=== PATIENT | female | born 1965 | race Caucasian/White ===

== ENCOUNTER 2023-07-22 09:07 | Outpatient (OUT) | payer MEDICARE, SELFPAY ==
[2023-07-22 09:39] LABS: Bilirubin Urine SMALL (NEGATIVE); Blood Urine TRACE-I (NEGATIVE); Clarity Urine CLEAR (CLEAR); Color Urine LT. YELLOW (YELLOW); Glucose Urine UA NEGATIVE (NEGATIVE); Ketones Urine 15 mg/dL (NEGATIVE); Leukocyte Esterase Urine MODERATE (NEGATIVE); Nitrite Urine NEGATIVE (NEGATIVE); Protein Urine NEGATIVE (NEG/TRACE); Specific Gravity Urine <=1.005 (1.005-1.025); Urobilinogen Urine 0.2 EU/dL (0.2-1.0); pH Urine 6.5 (5.0-9.0)
[2023-07-22 09:48] LABS: Basophils Percent Auto 0.8 % (0.2-2.0); Hematocrit 38.7 % (36.0-48.0); Hemoglobin 13.4 g/dL (12.0-16.0); Immature Granulocytes Abs Auto 0.01 10^3/uL (0.00-0.03); Immature Granulocytes Pct Auto 0.2 % (0.0-0.5); Mean Corpuscular HGB Conc 34.6 g/dL (29.9-35.2); Mean Corpuscular Hemoglobin 32.4 pg (26.7-34.0); Mean Corpuscular Volume 93.7 fL (81.0-99.0); Mean Platelet Volume 9.7 fL (9.5-13.5); Monocytes Absolute Auto 0.6 10^3/uL (0.3-0.8); Monocytes Percent Auto 10.8 % (1.7-12.0); Neutrophils Absolute Auto 2.5 10^3/uL (1.4-6.5); Neutrophils Percent Auto 49.2 % (43.0-75.0); Platelet Count 289 10^3/uL (150-450); Red Blood Count 4.13 10^6/uL (4.20-5.40); Red Cell Distribution Width 12.8 % (11.0-15.0); White Blood Count 5.1 10^3/uL (4.0-11.0)
[2023-07-22 09:51] LABS: Bacteria Urine TRACE #/HPF (NONE SEEN); Mucus Urine NONE SEEN (NONE SEEN); RBC Urine 0-2 #/HPF (0-2); Squamous Epithelial Cell Urine FEW #/LPF (NONE/RARE)
[2023-07-22 09:52] LABS: Calcium Oxalate Crystals Urine MANY; Crystals Seen? Seen #/HPF (None Seen)
[2023-07-22 10:41] LABS: Estimated Average Glucose 108 mg/dL; Glycohemoglobin A1C 5.4 % (4.5-6.2); Percent Iron Saturation 58.7 %
[2023-07-22 10:55] LABS: Alanine Aminotransferase 25 U/L (14-59); Albumin Level 3.6 g/dL (3.4-5.0); Alkaline Phosphatase 159 U/L (46-116); Anion Gap 12.8; Aspartate Amino Transferase 20 U/L (15-37); BUN Creatinine Ratio 7.9; Bilirubin Total 0.4 mg/dL (0.2-1.0); Calcium 9.1 mg/dL (8.5-10.1); Carbon Dioxide 26.5 mmol/L (21.0-32.0); Chloride 95 mmol/L (98-107); Chol HDL Ratio 2.5; Cholesterol 192 mg/dL (<=200); Estimated GFR (African America >60 (>=60); Estimated GFR (Non-African Ame >60 (>=60); Free T3 1.86 pg/mL (2.18-3.98); Globulin 3.7 g/dL; Glucose 104 mg/dL (74-106); HDL Cholesterol 78 mg/dL (40-60); Potassium 3.3 mmol/L (3.5-5.1); Sodium 131 mmol/L (136-145); Thyroid Stimulating Hormone 3.508 uIU/mL (0.358-3.740); Total Protein 7.3 g/dL (6.4-8.2); Triglycerides 79 mg/dL (<=150); VLDL CHOLESTEROL 15.8 mg/dL
[2023-07-22 11:02] LABS: Free T4 0.75 ng/dL (0.76-1.46)
== END 2023-07-22 09:08 | disposition home or self-care (01) ==
LOC: LAB 09:11
PROVIDERS: PCP Family Medicine; Visit Provider Family Medicine
DX: R31.9 Hematuria, unspecified (principal); E03.9 Hypothyroidism, unspecified; E78.5 Hyperlipidemia, unspecified; E55.9 Vitamin D deficiency, unspecified; Z79.899 Other long term (current) drug therapy; R73.9 Hyperglycemia, unspecified; E83.119 Hemochromatosis, unspecified; R74.8 Abnormal levels of other serum enzymes
CPT/HCPCS: 36415; 80053; 80061; 81001; 82306; 82728; 83036; 83540; 83550; 84075; 84080; 84439; 84443; 84481; 85025; 87086

== ENCOUNTER 2023-08-04 08:08 | Outpatient (OUT) | payer MEDICARE, SELFPAY ==
--- NOTE | 2023-08-04 08:24 | MM_ITS ---
Patient: MIKEY MONTEZ Exam Date: 08/04/2023 : 1965 Gender:F Ordering : DR JUSTO RUIZ Admission #: [id number] Family : Order #: [id number] CLICK HERE TO VIEW EXAM RADIOLOGY REPORT PROCEDURE: MM TOMOSYNTHESIS SCREENING BI COMPARISON: MG MAMM SCREEN 3D ELENA CAD, 06/02/2021. MG MAMM SCREEN ELENA W CAD, 05/28/2020. INDICATIONS: Screening Calculator Name NCI Breast Cancer Risk Assessment Tool 5 Year Breast Cancer Risk 1.40% Lifetime Breast Cancer Risk 8.90% Personal Breast Cancer No Personal Ovarian Cancer No Treatments None Family Cancers Grandfather-maternal with lung cancer at age 35. LOCATION: [facility] BREAST COMPOSITION: Almost entirely fatty. FINDINGS: DIAGNOSTIC CATEGORY 1--NEGATIVE. NO CHANGE FROM COMPARISON ASSESSMENT. RIGHT BREAST: No significant suspicious finding. LEFT BREAST: No significant suspicious finding. RECOMMENDATIONS: ROUTINE MAMMOGRAM AND CLINICAL EVALUATION IN 12 MONTHS. PLEASE NOTE: A NORMAL MAMMOGRAM DOES NOT EXCLUDE THE POSSIBILITY OF BREAST CANCER. A CLINICALLY SUSPICIOUS PALPABLE LUMP SHOULD BE BIOPSIED. Dictated by: Justo Sosa MD on 08/04/2023 at 13:48 Approved by: Justo Sosa MD on 08/04/2023 at 13:49
[2023-08-04 13:54] LABS: Anion Gap 14.7; BUN Creatinine Ratio 14.3; Carbon Dioxide 26.6 mmol/L (21.0-32.0); Chloride 93 mmol/L (98-107); Estimated GFR (African America >60 (>=60); Estimated GFR (Non-African Ame >60 (>=60); Glucose 100 mg/dL (74-106); Potassium 4.3 mmol/L (3.5-5.1); Sodium 130 mmol/L (136-145)
== END 2023-08-04 08:09 | disposition home or self-care (01) ==
LOC: MAMMO 08:09
PROVIDERS: PCP Family Medicine; Visit Provider Family Medicine
DX: E87.6 Hypokalemia (principal); Z12.31 Encounter for screening mammogram for malignant neoplasm of breast; Z80.1 Family history of malignant neoplasm of trachea, bronchus and lung
CPT/HCPCS: 36415; 77063; 77067; 80048

== ENCOUNTER 2023-08-12 09:41 | Outpatient (OUT) | payer MEDICARE, SELFPAY ==
[2023-08-12 10:09] LABS: Basophils Percent Auto 0.6 % (0.2-2.0); Hematocrit 38.4 % (36.0-48.0); Hemoglobin 12.8 g/dL (12.0-16.0); Lymphocytes Absolute Auto 1.8 10^3/uL (1.2-3.8); Mean Corpuscular HGB Conc 33.3 g/dL (29.9-35.2); Mean Corpuscular Hemoglobin 32.1 pg (26.7-34.0); Mean Corpuscular Volume 96.2 fL (81.0-99.0); Monocytes Absolute Auto 0.4 10^3/uL (0.3-0.8); Monocytes Percent Auto 7.4 % (1.7-12.0); Neutrophils Absolute Auto 3.1 10^3/uL (1.4-6.5); Platelet Count 320 10^3/uL (150-450); Red Blood Count 3.99 10^6/uL (4.20-5.40); Red Cell Distribution Width 13.2 % (11.0-15.0); White Blood Count 5.4 10^3/uL (4.0-11.0)
[2023-08-12 11:05] LABS: Percent Iron Saturation 42.5 %
[2023-08-12 11:44] LABS: Alanine Aminotransferase 21 U/L (14-59); Albumin Globulin Ratio 0.9; Albumin Level 3.6 g/dL (3.4-5.0); Alkaline Phosphatase 158 U/L (46-116); Anion Gap 13.1; Aspartate Amino Transferase 16 U/L (15-37); BUN Creatinine Ratio 18.3; Bilirubin Total 0.4 mg/dL (0.2-1.0); Calcium 9.2 mg/dL (8.5-10.1); Carbon Dioxide 26.7 mmol/L (21.0-32.0); Chloride 98 mmol/L (98-107); Estimated GFR (African America >60 (>=60); Estimated GFR (Non-African Ame >60 (>=60); Globulin 3.8 g/dL; Glucose 103 mg/dL (74-106); Magnesium 1.9 mg/dL (1.8-2.4); Phosphorus 3.2 mg/dL (2.6-4.7); Potassium 3.8 mmol/L (3.5-5.1); Sodium 134 mmol/L (136-145); Total Protein 7.4 g/dL (6.4-8.2)
[2023-08-16 19:07] LABS: Vitamin B1 (Thiamine), Blood 156.7 nmol/L (66.5-200.0)
== END 2023-08-12 09:42 | disposition home or self-care (01) ==
LOC: LAB 09:42
PROVIDERS: PCP Family Medicine
DX: E03.9 Hypothyroidism, unspecified (principal); M19.90 Unspecified osteoarthritis, unspecified site; K21.9 Gastro-esophageal reflux disease without esophagitis; Z98.84 Bariatric surgery status
CPT/HCPCS: 36415; 80053; 82306; 82607; 82728; 82746; 83540; 83550; 83735; 84100; 84425; 85025

== ENCOUNTER 2023-10-20 10:21 | Outpatient (OUT) | payer MEDICARE, SELFPAY ==
[2023-10-20 10:48] LABS: Basophils Percent Auto 0.6 % (0.2-2.0); Hematocrit 40.2 % (36.0-48.0); Hemoglobin 13.8 g/dL (12.0-16.0); Immature Granulocytes Abs Auto 0.01 10^3/uL (0.00-0.03); Immature Granulocytes Pct Auto 0.2 % (0.0-0.5); Lymphocytes Percent Auto 41.5 % (20.5-60.0); Mean Corpuscular HGB Conc 34.3 g/dL (29.9-35.2); Mean Corpuscular Hemoglobin 32.5 pg (26.7-34.0); Mean Corpuscular Volume 94.8 fL (81.0-99.0); Mean Platelet Volume 8.9 fL (9.5-13.5); Monocytes Absolute Auto 0.5 10^3/uL (0.3-0.8); Monocytes Percent Auto 9.2 % (1.7-12.0); Neutrophils Absolute Auto 2.4 10^3/uL (1.4-6.5); Neutrophils Percent Auto 48.5 % (43.0-75.0); Platelet Count 339 10^3/uL (150-450); Red Blood Count 4.24 10^6/uL (4.20-5.40); Red Cell Distribution Width 12.4 % (11.0-15.0); White Blood Count 4.9 10^3/uL (4.0-11.0)
[2023-10-20 11:59] LABS: Percent Iron Saturation 40.7 %
[2023-10-20 12:01] LABS: Alanine Aminotransferase 18 U/L (14-59); Albumin Globulin Ratio 0.9; Albumin Level 3.6 g/dL (3.4-5.0); Alkaline Phosphatase 207 U/L (46-116); Anion Gap 11.7; Aspartate Amino Transferase 14 U/L (15-37); BUN Creatinine Ratio 14.1; Bilirubin Total 0.3 mg/dL (0.2-1.0); Calcium 9.1 mg/dL (8.5-10.1); Carbon Dioxide 27.3 mmol/L (21.0-32.0); Chloride 96 mmol/L (98-107); Estimated GFR (African America >60 (>=60); Estimated GFR (Non-African Ame >60 (>=60); Glucose 104 mg/dL (74-106); Sodium 131 mmol/L (136-145); Total Protein 7.6 g/dL (6.4-8.2)
== END 2023-10-20 10:22 | disposition home or self-care (01) ==
LOC: LAB 10:23
PROVIDERS: PCP Family Medicine; Visit Provider Family Medicine
DX: Z79.899 Other long term (current) drug therapy (principal); E83.119 Hemochromatosis, unspecified; E03.9 Hypothyroidism, unspecified
CPT/HCPCS: 36415; 80053; 82728; 83540; 83550; 84439; 84443; 84481; 85025

== ENCOUNTER 2023-11-23 21:03 | Outpatient (REF) | payer MEDICARE, SELFPAY ==
--- OUTSIDE RECORDS SUMMARY | 2023-11-23 21:07 | XMS_ITS | CCD ---
Author Name Unknown Address [address] [place] [address] Organization [facility] Care Team Providers Care Uptwist Spinner Name Role Phone Scotty Ruiz Unavailable Rajendra Angulo Unavailable DO Scotty Ruiz Primary Care Provider [phone] MD Rajendra Angulo Attending Provider Clarissa, PhD Mahendra Attending Provider Vincent Aguilar Primary Care Provider [phone] Scotty Ruiz Primary Care Physician SCOTTY RUIZ Referring Unavailable SCOTTY RUIZ Primary Care Unavailable RICCI GARCIA Attending Unavailable VINCENT AGUILAR Primary Care Unavailable RADHA, RICCI Referring Unavailable VINCENT AGUILAR Primary Care Unavailable ABSASHAAR, RICCI Referring Unavailable RICCI GARCIA Attending Unavailable VINCENT AGUILAR Primary Care Unavailable RADHA, RICCI Referring Unavailable VINCENT AGUILAR Primary Care Unavailable ABHYANKAR, RICCI Referring Unavailable Janie Joseph Unavailable Scotty Ruiz Referring Unavailabl e Kerry JONES Attending Unavailable Kerry JONSE Attending Unavailable Kerry JONES Attending Unavailable Scotty Ruiz Referring Unavailabl e MOMO, Kerry Castelan Attending Unavailable DO Scotty Ruiz Primary Care Provider Clarissa, PhD Mahendra Attending Provider MOMO Epstein, DR PAYNE Admitting Unavailable NILL ., DR PAYNE Attending Unavailable SARA, DR FAJARDO Primary Care Unavailable NILL ., DR PAYNE Consulting Unavailable DO INTERIANO Admitting Unavailable DO INTERIANO Attending Unavailable SARA, DR FAJARDO Primary Care Unavailable NILL ., DR PAYNE Admitting Unavailable NILL ., DR PAYNE Attending Unavailable GIRVIN, DR FAJARDO Primary Care Unavailable NILL ., DR PAYNE Consulting Unavailable MORGOSEMMY Consulting Unavailable GREGORY, NATALIO ORTEGA Consulting Unava ilable GIRMONO, DR FAJARDO Admitting Unavailable GIRVIN, DR FAJARDO Attending Unavailable GIRVIN, DR FAJARDO Primary Care Unavailable GIRVIN, DR FAJARDO Consulting Unavailable GIRVIN, DR FAJARDO Admitting Unavailable GIRVIN, DR FAJARDO Attending Unavailable GIRVIN, DR FAJARDO Primary Care Unavailable GIRVIN, DR FAJARDO Consulting Unavailable MISC, DR GUERRERO Admitting Unavailable MISC, DR GUERRERO Attending Unavailable GIRVIN, DR FAJARDO Primary Care Unavailable MISC, DR GUERRERO Consulting Unavailable GIRVIN, DR FAJARDO Admitting Unavailable GIRVIN, DR FAJARDO Attending Unavailable GIRVIN, DR FAJARDO Primary Care Unavailable GIRVIN, DR FAJARDO Consulting Unavailable Sara, DO Fajardo Primary Care Provider MD Rajendra Angulo Attending Provider [phone] Mahendra Romo Attending Unavailable Mahendra Romo Admitting Unavailable Scotty Ruiz Primary Care Unavailable Rajendra Angulo Attending UnavailRajendra Small Admitting Unavaila ble Sara, Scotty Primary Care Unavailable Allergies Allergy Classification Reported Allergen(s) Allergy Type Date of Onset Reaction(s) Facility (14 sources) Penicillin V Drug Allergy rash [facility] Other (17 sources) Valproate; Translations: [divalproex sodium] Drug Allergy Mood [facility] [place] (4 sources) Penicillins; Translations: [PENICILLINS] Propensity to adverse reactions 8 [facility] (8 sources) PHENobarbital; Translations: [phenobarbital] Drug Allergy 8 Other (qualifier value) [facility] (4 sources) Penicillin; Translations: [penicillin] Drug Allergy Eruption of skin (disorder) [facility] (2 sources) Valproate; Translations: [Depakote] Drug Allergy [facility] (1 source) benzoin resin Drug Allergy [facility] (1 source) Penicillins Drug allergy (disorder) 5 [facility] (1 source) Phenytoin Drug Allergy [facility] (1 source) Unable to Assess Drug allergy (disorder) 9 [facility] Repository Medications Current Medications Medication Drug Class(es) Dates Sig (Normalized) Sig (Original) calcium carbonate 1500 mg / cholecalciferol 200 unt oral tablet (14 sources) Vitamin D take 1 tablet by mouth once daily at mealtime Calcium + D 600-200 MG-UNIT 1 tablet with food Orally Once a day Active take 1 tablet by mariana th every twenty-four hours Calcium + D 600-200 MG-UNIT 1 tablet with food Orally Once a day Active Calcium Citrate / Vitamin D (3 sources) Start: 07-27-2022 calcium-vitamin D Refill(s) 0 Start Date: 07/27/22 Status: Ordered 12 hr carBAMazepine 300 mg extended release oral capsule (14 sources) Mood Stabilizer take 1 capsule by mouth every twelve hours Carbatrol 300 MG 1 capsule Orally bid Active take 1 capsule by mouth every si x hours Carbatrol 300 MG 1 capsule Orally four times a day Active CPAP Mask and supplies (14 sources) CPAP Mask and ashley pplies as directed Active folic acid 0.4 mg oral tablet (17 sources) Start: 07-27-2022 take 1 tablet by mouth once daily folic acid 0.4 mg Tab 0.4 mg = 1 tab(s), Oral, Daily, Refills(s) 0 Start Date: 07/27/22 Status: Ordered take 1 tablet by mariana th every twenty-four hours Folic Acid 400 MCG 1 tablet Orally once a day Active take 1 tablet by mouth once liz y Folic Acid 400 MCG 1 tablet Orally once a day Active lacosamide 200 mg oral tablet (20 sources) Anti-epileptic Agent Start: 07-27-2022 take 1 tablet by mouth twice daily Vimpat 200 mg oral tablet 200 mg = 1 tab(s), Oral, BID, Refills(s) 0 Start Date: 07/27/22 Status: Ordered take 1 tablet by mouth every twe lve hours Vimpat 100 MG 1 tablet Orally Twice a day Active take 1 tablet by mouth five time s daily Vimpat 100 MG 1 tablet Orally 5 times per day Not-Taking levETIRAcetam 1000 mg oral tablet (20 sources) Start: 02-06-2021 take 1 tablet by mouth twice daily Keppra 1000 mg oral tablet 1,000 mg = 1 tab(s), Oral, BID, Refills(s) 0 Start Date: 07/27/22 Status: Ordered levothyroxine sodium 0.05 mg oral tablet (20 sources) l-Thyroxi ne Start: 07-27-2022 take 1 tablet by mouth once daily levothyroxine 50 mcg (0.05 mg) Tab 50 mcg = 1 tab(s), Oral, Daily, Refills(s) 0 Start Date: 07/27/22 Status: Ordered Start: 08-22-2016 levothyroxine (SYNTHROID) 25 mcg tablet Levothyroxine So dium 75 MCG TAKE 1 TABLET EVERY MORNING ON AN EMPTY STOMACH Active Levothyroxine So dium 75 MCG TAKE 1 TABLET EVERY MORNING ON AN EMPTY STOMACH for 90 days Active omeprazole 20 mg delayed release oral capsule (3 sources) Proton Pump Inhibitor take 1 capsule by mouth once daily Omeprazole 20 MG 1 capsule 30 minutes before morning meal Orally Once a day Active OXcarbazepine 300 mg oral tablet (6 sources) Anti-epileptic Agent Start: 11-08-19 take 1 tablet by mouth twice daily oxcarbazepine 300 mg Tab 300 mg = 1 tab(s), Oral, BID, Refills(s) 0 Start Date: 08/04/22 Status: Ordered ursodiol 300 mg oral capsule (3 sources) Bile Acid take 1 capsule by mouth every twelve hours Ursodiol 300 MG 1 capsule Orally Twice a day Active valACYclovir 1000 mg oral tablet (20 sources) Herpesvirus Nucleoside Analog DNA Polymerase Inhibitor, Herpes Simplex Virus Nucleoside Analog DNA Polymerase Inhibitor, Herpes Zoster Virus Nucleoside Analog DNA Polymerase Inhibitor Start: 07-27-20 take 1 tablet by mouth once daily valacyclovir 1 g Tab 1 gm = 1 tab(s), Oral, Daily, Refills(s) 0 Start Date: 07/27/22 Status: Ordered Start: 03-13-2008 VALACYCLOVIR 5 00 MG TAB Take one(1) tablet daily. 0 0 03/13/2008 Active take 1 tablet by mariana th every twenty-four hours Valtrex 1 GM 1 tablet Orally once a day for 10 day(s) Active Comment on above: Take one(1) tablet d aily. Vitamin D (Ergocalciferol) 20551 UNIT (1 source) take 1 capsule by mouth every week Vitamin D (Ergocalciferol) 92124 UNIT TAKE 1 CAPSULE BY MOUTH ONCE A WEEK Active Completed/Discontinued Medications Medication Drug Class(es) Dates Sig (Normalized) Sig (Original) calcium phosphate dibas/vit D3 (VITAMIN D, WITH CALCIUM, ORAL) (3 sources) Start: 01-07-2016 calcium phosphate dibas/vit D3 (VITAMIN D, WITH CALCIUM, ORAL) ergocalciferol 1.25 mg oral capsule (19 sources) Provitamin D2 Compound Start: 08-07-2016 VITAMIN D 50,000 unit capsule take 1 capsule by mouth every we ek Vitamin D (Ergocalciferol) 36706 UNIT TAKE 1 CAPSULE BY MOUTH ONCE A WEEK for 90 days Active take 1 capsule by mouth every we ek Vitamin D (Ergocalciferol) 73305 UNIT TAKE 1 CAPSULE BY MOUTH ONCE A WEEK Active estrogens, conjugated (longterm) 0.625 mg oral tablet (3 sources) Estrogen Start: 09-15-2016 PREMARIN 0.625 mg tablet gabapentin (3 sources) Anti-epileptic Agent Neurontin 7 5 mg 4 x a day Not-Taking meloxicam 15 mg oral tablet (3 sources) Nonsteroidal Anti-inflammatory Drug Start: 09-14-2016 meloxicam (MOBIC) 15 mg tablet Vitamin D 50,000 intl units (1.25 mg) oral capsule (3 sources) Start: 07-27-2022 take 1 capsule by mouth every week Vitamin D 50,000 intl units (1.25 mg) oral capsule 50,000 International_Un it = 1 cap(s), Oral, qWeek, Refills(s) 0 Start Date: 07/27/22 Status: Ordered Problems Active Problems Problem Classification Problem Date Documented Da te Episodic/Chronic Biliary tract disease (5 sources) Gallstone; Translations: [Calculus of gallbladder without cholecystitis without obstruction] Episodic Diabetes mellitus without complication (5 sources) Hyperglycemia, unspecified; Translations: [HYPERGLYCEMIA UNSPECIFIED] Onset: 07-14-2022 Resolved: 07-14-2022 Episodic Digestive congenital anomalies (1 source) Other specified congenital malformations of intestine; Translations: [OTH SPEC CONGEN MALFORM INTESTINE] Onset: 09-14-2022 Chronic Disorders of lipid metabolism (20 sources) Hyperlipidemia; Translations: [Hyperlipidemia, unspecified] Onset: 07-14-2022 Resolved: 07-14-2022 Chronic Epilepsy; convulsions (20 sources) Epilepsy; Translations: [Epilepsy, unspecified, not intractable, without status epilepticus] Onset: 07-07-2022 Resolved: 07-14-2022 Chronic Fluid and electrolyte disorders (5 sources) Hypo-osmolality and hyponatremia; Translations: [Hypokalemia] Onset: 07-14-2022 Resolved: 07-14-2022 Episodic Genitourinary symptoms and ill-defined conditions (11 sources) Hematuria, unspecified; Translations: [Nocturia] Onset: 07-09-2022 Resolved: 07-14-2022 Episodic Nutritional deficiencies (20 sources) Vitamin D deficiency; Translations: [Vitamin D deficiency, unspecified] Onset: 07-14-2022 Resolved: 07-14-2022 Chronic Other aftercare (5 sources) Other skilled nursing (current) drug therapy; Translations: [OTH SENIOR PARTNER CURRENT DRUG THERAPY] Onset: 07-14-2022 Resolved: 07-14-2022 Episodic Other gastrointestinal disorders (1 source) Bariatric surgery status Episodic Other liver diseases (9 sources) Abnormal levels of other serum enzymes; Translations: [ABNORMAL LEVELS OTHER SERUM ENZYMES] Onset: 07-09-2022 Resolved: 07-14-2022 Episodic Other nutritional; endocrine; and metabolic disorders (18 sources) Body mass index 40+ - severely obese; Translations: [Body mass index (BMI) 45.0-49.9, adult] Onset: 08-04-2022 Chronic Other nutritional; endocrine; and metabolic disorders (20 sources) Hemochromatosis; Translations: [Hemochromatosis, unspecified] Onset: 09-22-2012 Chronic Other nutritional; endocrine; and metabolic disorders (5 sources) Hemochromatosis, unspecified; Translations: [HEMOCHROMATOSIS UNSPECIFIED] Onset: 07-14-2022 Resolved: 07-14-2022 Chronic Other nutritional; endocrine; and metabolic disorders (4 sources) Disorder of iron metabolism; 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, unspecified] Onset: 08-12-2022 Chronic Other nutritional; endocrine; and metabolic disorders (4 sources) Hereditary hemochromatosis; Translations: [Hereditary hemochromatosis] Onset: 09-22-2012 Chronic Other nutritional; endocrine; and metabolic disorders (1 source) Hereditary hemochromatosis; Translations: [Hereditary hemochromatosis] Chronic Other nutritional; endocrine; and metabolic disorders (2 sources) Abnormal weight gain Onset: 07-14-2022 Resolved: 07-14-2022 Episodic Other nutritional; endocrine; and metabolic disorders (2 sources) Abnormal weight loss Episodic Other screening for suspected conditions (not mental disorders or infectious disease) (8 sources) Encounter for screening mammogram for malignant neoplasm of breast; Translations: [Encounter for screening for malignant neoplasm of colon] Onset: 07-14-2022 Resolved: 07-14-2022 Episodic Residual codes; unclassified (17 sources) Obstructive sleep apnea syndrome; Translations: [Obstructive sleep apnea (adult) (pediatric)] 07-27-2022 Chronic Residual codes; unclassified (14 sources) Sleep apnea; Translations: [Sleep apnea, unspecified] Chronic Residual codes; unclassified (3 sources) Obstructive sleep apnea (adult) (pediatric); Translations: [OBSTRUCTIVE SLEEP APNEA] Onset: 06-03-2022 Resolved: 06-03-2022 Chronic Residual codes; unclassified (1 source) Sleep apnea, unspecified Onset: 07-14-2022 Resolved: 07-14-2022 Chronic Residual codes; unclassified (1 source) Obstructive sleep apnea (adult)(pediatric); Translations: [Obstructive sleep apnea (adult) (pediatric)] Onset: 06-02-2023 Chronic Thyroid disorders (20 sources) Hypothyroidism; Translations: [Hypothyroidism, unspecified] Onset: 09-01-2021 Resolved: 07-14-2022 Chronic Unclassified (3 sources) Patient encounter status 08-04-2022 Unclassified (3 sources) CONTACT W/AND (SUSP) EXPOS COVID-19; Translations: [CONTACT W/AND (SUSP) EXPOS COVID-19] Onset: 09-10-2022 Past or Other Problems Problem Classification Problem Date Documented Da te Episodic/Chronic Contraceptive and procreative management (1 source) Tubal ligation status; Translations: [TUBAL LIGATION STATUS] Onset: 09-14-2022 Episodic Epilepsy; convulsions (4 sources) Unspecified convulsions; Translations: [UNSPECIFIED CONVULSIONS] Onset: 10-08-2022 Episodic Other and unspecified benign neoplasm (1 source) Benign neoplasm of sigmoid colon; Translations: [BENIGN NEOPLASM OF SIGMOID COLON] Onset: 09-14-2022 Episodic Residual codes; unclassified (5 sources) Family history of hemochromatosis; Translations: [Family history of other endocrine, nutritional and metabolic diseases] Onset: 09-20-2014 Episodic Residual codes; unclassified (1 source) Other amnesia; Translations: [Other amnesia] Onset: 07-28-2022 Episodic Unclassified (1 source) CONTACT W/AND (SUSP) EXPOS COVID-19; Translations: [CONTACT W/AND (SUSP) EXPOS COVID-19] Onset: 2022 Results Test Name Value Interpretation Reference Range Facility ALKP ISOENZYMESon 01-12-2023 ALP [Catalytic activity/Vol] 159 U/L Critically high 44-121 [facility] Comment on above: Performed By: #### A LKPISO #### [facility] [address] [place] [address] Dr. Cecilio Gale Bone Fraction: 36 % Normal 14-68 [facility] Comment on above: Performed By: #### A LKPISO #### [facility] [address] [place] [address] Dr. Cecilio Gale Intestinal Frac.: 6 % Normal 0-18 [facility] Comment on above: Performed By: #### A LKPISO #### [facility] [address] [place] [address] Dr. Cecilio Gale Liver Fraction: 59 % Normal 18-85 [facility] Comment on above: Performed By: #### A LKPISO #### [facility] [address] [place] [address] Dr. Cecilio Gale CBC AUTO DIFFon 01-11-2023 BASO # 0.0 103/ul Normal 0.0-0.1 [facility] Comment on above: Performed By: #### F T4, VITAD, FETIBC, FERR #### [facility] [address] [place] [address] Dr. Cecilio Gale Basophils/100 WBC (Bld) 0.9 % Normal 0.2-2.0 [facility] Comment on above: Performed By: #### F T4, VITAD, FETIBC, FERR #### [facility] [address] [place] [address] Dr. Cecilio Gale EO # 0.0 103/ul Normal 0.0-0.7 [facility] Comment on above: Performed By: #### F T4, VITAD, FETIBC, FERR #### [facility] [address] [place] [address] Dr. Cecilio Gale Eosinophils/100 WBC (Bld) 0.6 % Critically low 0.9-7.0 [facility] Comment on above: Performed By: #### F T4, VITAD, FETIBC, FERR #### [facility] [address] [place] [address] Dr. Cecilio Gale Erythrocyte distribution width (RBC) [Ratio] 11.8 % Normal 11.0-15.0 [facility] Comment on above: Performed By: #### F T4, VITAD, FETIBC, FERR #### [facility] [address] [place] [address] Dr. Cecilio Gale Hematocrit (Bld) [Volume fraction] 41.3 % Normal 36.0-48.0 [facility] Comment on above: Performed By: #### F T4, VITAD, FETIBC, FERR #### [facility] [address] [place] [address] Dr. Cecilio Gale Hemoglobin (Bld) [Mass/Vol] 14.5 g/dL Normal 12.0-16.0 [facility] Comment on above: Performed By: #### F T4, VITAD, FETIBC, FERR #### [facility] [address] [place] [address] Dr. Cecilio Gale IG # 0.01 10e3/ul Normal 0.00-0.03 [facility] Comment on above: Performed By: #### F T4, VITAD, FETIBC, FERR #### [facility] [address] [place] [address] Dr. Cecilio Gale IG % 0.2 % Normal 0.0-0.5 [facility] Comment on above: Performed By: #### F T4, VITAD, FETIBC, FERR #### [facility] [address] [place] [address] Dr. Cecilio Gale LYMPH # 1.8 103/ul Normal 1.2-3.8 [facility] Comment on above: Performed By: #### F T4, VITAD, FETIBC, FERR #### [facility] [address] [place] [address] Dr. Cecilio Gale Lymphocytes/100 WBC (Bld) 39.1 % Normal 20.5-60.0 [facility] Comment on above: Performed By: #### F T4, VITAD, FETIBC, FERR #### [facility] [address] [place] [address] Dr. Cecilio Gale MANUAL DIFF REQ NO Normal [facility] Comment on above: Performed By: #### F T4, VITAD, FETIBC, FERR #### [facility] [address] [place] [address] Dr. Cecilio Gale MCH (RBC) [Entitic mass] 32.7 pg Normal 26.7-34.0 [facility] Comment on above: Performed By: #### F T4, VITAD, FETIBC, FERR #### [facility] [address] [place] [address] Dr. Cecilio Gale MCHC (RBC) [Mass/Vol] 35.1 g/dL Normal 29.9-35.2 [facility] Comment on above: Performed By: #### F T4, VITAD, FETIBC, FERR #### [facility] [address] [place] [address] Dr. Cecilio Gale MCV (RBC) [Entitic vol] 93.0 fL Normal 81.0-99.0 [facility] Comment on above: Performed By: #### F T4, VITAD, FETIBC, FERR #### [facility] [address] [place] [address] Dr. Cecilio Gale MONO # 0.4 103/ul Normal 0.3-0.8 [facility] Comment on above: Performed By: #### F T4, VITAD, FETIBC, FERR #### [facility] [address] [place] [address] Dr. Cecilio Gale Monocytes/100 WBC (Bld) 9.2 % Normal 1.7-12.0 [facility] Comment on above: Performed By: #### F T4, VITAD, FETIBC, FERR #### [facility] [address] [place] [address] Dr. Cecilio Gale NEUT # 2.3 103/ul Normal 1.4-6.5 [facility] Comment on above: Performed By: #### F T4, VITAD, FETIBC, FERR #### [facility] [address] [place] [address] Dr. Cecilio Gale Neutrophils/100 WBC (Bld) 50.0 % Normal 43.0-75.0 [facility] Comment on above: Performed By: #### F T4, VITAD, FETIBC, FERR #### [facility] [address] [place] [address] Dr. Cecilio Gale Platelet mean volume (Bld) [Entitic vol] 8.6 fL Critically low 9.5-13.5 [facility] Comment on above: Performed By: #### F T4, VITAD, FETIBC, FERR #### [facility] [address] [place] [address] Dr. Cecilio Gale PLT 354 103/ul Normal 150-450 [facility] Comment on above: Performed By: #### F T4, VITAD, FETIBC, FERR #### [facility] [address] [place] [address] Dr. Cecilio Gale RBC 4.44 106/ul Normal 4.20-5.40 [facility] Comment on above: Performed By: #### F T4, VITAD, FETIBC, FERR #### [facility] [address] [place] [address] Dr. Cecilio Gale WBC 4.7 103/ul Normal 4.0-11.0 [facility] Comment on above: Performed By: #### F T4, VITAD, FETIBC, FERR #### [facility] [address] [place] [address] Dr. Cecilio Gale CULTURE URINEon 01-11-2023 CULTURE URINE Culture Observations: LIGHT GROWTH OF MIXED GENITAL CAMERON. NO POTENTIAL PATHOGENS SEEN. Normal [facility] Comment on above: Performed By: #### F T4, VITAD, FETIBC, FERR #### [facility] [address] [address] [address] Cecilio Gale FERRITINon 01-11-2023 Ferritin [Mass/Vol] 132.0 ng/mL Normal 8.0-252.0 [facility] Comment on above: Performed By: #### F T4, VITAD, FETIBC, FERR #### [facility] [address] [place] [address] Dr. Cecilio Gale FREE T3on 01-11-2023 FREE T3 2.03 pg/mlL Critically low 2.18-3.98 [facility] Comment on above: Performed By: #### F T4, VITAD, FETIBC, FERR #### [facility] [address] [place] [address] Dr. Cecilio Gale FREE T4on 01-11-2023 Free T4 [Mass/Vol] 0.82 ng/dL Normal 0.76-1.46 [facility] Comment on above: Performed By: #### F T4, VITAD, FETIBC, FERR #### [facility] [address] [place] [address] Dr. Cecilio Gale GLYCOHEMOGLOBIN A1Con 2022 ADA RECOMMENDATION SEE BELOW Normal [facility] Comment on above: Result Comment: ADA RECOMMENDED LIMIT 4.0 - 6.0 ADA THERAPEUTIC TARGET < 7.0 ACTION SUGGESTED > 7.0 Performed By: #### F T4, VITAD, FETIBC, FERR #### [facility] [address] [place] [address] Dr. Cecilio Gale Glucose [Mass/Vol] 103 mg/dL Normal [facility] Comment on above: Performed By: #### F T4, VITAD, FETIBC, FERR #### [facility] [address] [place] [address] Dr. Cecilio Gale HbA1c (Bld) [Mass fraction] 5.2 % Normal 4.5-6.2 [facility] Comment on above: Performed By: #### F T4, VITAD, FETIBC, FERR #### [facility] [address] [place] [address] Dr. Cecilio Gale IRON AND TIBCon 01-11-2023 % SATURATION 44.6 % Normal [facility] Comment on above: Performed By: #### F T4, VITAD, FETIBC, FERR #### [facility] [address] [place] [address] Dr. Cecilio Gale Iron [Mass/Vol] 121.0 ug/dL Normal 50.0-170.0 [facility] Comment on above: Performed By: #### F T4, VITAD, FETIBC, FERR #### [facility] [address] [address] [address] Cecilio Gale TIBC DIRECT 271.0 ug/dL Normal 250.0-450.0 [facility] Comment on above: Performed By: #### F T4, VITAD, FETIBC, FERR #### [facility] [address] [place] [address] Dr. Ceciilo Gale LIPID PROFILEon 01-11-2023 CHOL-HDL RATIO NORM SEE BELOW Normal [facility] Comment on above: Result Comment: 3.3 - 4.4 LOW RISK 4.4 - 7.1 AVERAGE RISK 7.1 - 11.0 MODERATE RISK >11.0 HIGH RISK Performed By: #### F T4, VITAD, FETIBC, FERR #### [facility] [address] [place] [address] Dr. Cecilio Gale Cholesterol [Mass/Vol] 216 mg/dL Critically high <=200 [facility] Comment on above: Performed By: #### F T4, VITAD, FETIBC, FERR #### [facility] [address] [place] [address] Dr. Cecilio Gale Cholesterol in HDL [Mass/Vol] 96 mg/dL Critically high 40-60 [facility] Comment on above: Performed By: #### F T4, VITAD, FETIBC, FERR #### [facility] [address] [place] [address] Dr. Cecilio Gale Cholesterol in LDL [Mass/Vol] 103.0 mg/dL Normal [facility] Comment on above: Performed By: #### F T4, VITAD, FETIBC, FERR #### [facility] [address] [address] [address] Cecilio Gale Cholesterol.total/Cho lesterol in HDL [Mass ratio] 2.3 {ratio} Normal [facility] Comment on above: Performed By: #### F T4, VITAD, FETIBC, FERR #### [facility] [address] [address] [address] Cecilio Gale HDL NORMAL > or = 60 mg/dl - LOW CARDIOVASCULAR RISK <40 mg/dl - HIGH CARDIOVASCULAR RISK Normal [facility] Comment on above: Performed By: #### F T4, VITAD, FETIBC, FERR #### [facility] [address] [address] [address] Cecilio Gale LDL CALC NORMAL SEE BELOW Normal [facility] Comment on above: Result Comment: <100 mg/dl OPTIMAL 100 - 129 mg/dl NEAR OR ABOVE OPTIMAL 130 - 159 mg/dl BORDERLINE HIGH 160 - 189 mg/dl HIGH >190 mg/dl VERY HIGH Performed By: #### F T4, VITAD, FETIBC, FERR #### [facility] [address] [address] [address] Cecilio Gale Triglyceride [Mass/Vol] 86 mg/dL Normal <=150 [facility] Comment on above: Performed By: #### F T4, VITAD, FETIBC, FERR #### [facility] [address] [address] [address] Cecilio Gale VLDL CALC 17.2 mg/dL Normal [facility] Comment on above: Performed By: #### F T4, VITAD, FETIBC, FERR #### [facility] [address] [address] [address] Cecilio Gale PROF 14(COMP METB)on 023 Albumin [Mass/Vol] 3.8 g/dL Normal 3.4-5.[address] [facility] Comment on above: Performed By: #### F T4, VITAD, FETIBC, FERR #### [facility] [address] [address] [address] Cecilio Gale Albumin/Globulin [Mass ratio] 1.0 {ratio} Normal [facility] Comment on above: Performed By: #### F T4, VITAD, FETIBC, FERR #### [facility] [address] [place] [address] Dr. Cecilio Gale ALP [Catalytic activity/Vol] 165 U/L Critically high 46-116 [facility] Comment on above: Performed By: #### F T4, VITAD, FETIBC, FERR #### [facility] [address] [place] [address] Dr. Cecilio Gale ALT [Catalytic activity/Vol] 24 U/L Normal 14-59 [facility] Comment on above: Performed By: #### F T4, VITAD, FETIBC, FERR #### [facility] [address] [place] [address] Dr. Cecilio Gale Anion gap [Moles/Vol] 14.6 mmol/L Normal [facility] Comment on above: Performed By: #### F T4, VITAD, FETIBC, FERR #### [facility] [address] [place] [address] Dr. Cecilio Gale AST [Catalytic activity/Vol] 19 U/L Normal 15-37 [facility] Comment on above: Performed By: #### F T4, VITAD, FETIBC, FERR #### [facility] [address] [place] [address] Dr. Cecilio Gale Bilirubin [Mass/Vol] 0.3 mg/dL Normal 0.2-1.0 [facility] Comment on above: Performed By: #### F T4, VITAD, FETIBC, FERR #### [facility] [address] [place] [address] Dr. Cecilio Gale Calcium [Mass/Vol] 8.9 mg/dL Normal 8.5-10.[address] [facility] Comment on above: Performed By: #### F T4, VITAD, FETIBC, FERR #### [facility] [address] [place] [address] Dr. Cecilio Gale Chloride [Moles/Vol] 106 mmol/L Normal 98-107 [facility] Comment on above: Performed By: #### F T4, VITAD, FETIBC, FERR #### [facility] [address] [place] [address] Dr. Cecilio Gale CO2 [Moles/Vol] 25.3 mmol/L Normal 21.0-32.0 [facility] Comment on above: Performed By: #### F T4, VITAD, FETIBC, FERR #### [facility] [address] [place] [address] Dr. Cecilio Gale Creatinine [Mass/Vol] 0.72 mg/dL Normal 0.55-1.02 [facility] Comment on above: Performed By: #### F T4, VITAD, FETIBC, FERR #### [facility] [address] [place] [address] Dr. Cecilio Gale EGFR-AF SAUDI ARABIAN >60 Normal >=60 [facility] Comment on above: Performed By: #### F T4, VITAD, FETIBC, FERR #### [facility] [address] [place] [address] Dr. Cecilio Gale EGFR-NON AF SAUDI ARABIAN >60 Normal >=60 [facility] Comment on above: Performed By: #### F T4, VITAD, FETIBC, FERR #### [facility] [address] [place] [address] Dr. Cecilio Gale Globulin (S) [Mass/Vol] 3.7 g/dL Normal [facility] Comment on above: Performed By: #### F T4, VITAD, FETIBC, FERR #### [facility] [address] [place] [address] Dr. Cecilio Gale Glucose [Mass/Vol] 112 mg/dL Critically high 74-106 T [facility] Comment on above: Performed By: #### F T4, VITAD, FETIBC, FERR #### [facility] [address] [place] [address] Dr. Cecilio Gale Potassium [Moles/Vol] 4.0 mmol/L Normal 3.5-5.1 [facility] Comment on above: Performed By: #### F T4, VITAD, FETIBC, FERR #### [facility] [address] [address] [address] Cecilio Gale Protein [Mass/Vol] 7.5 g/dL Normal 6.4-8.2 [facility] Comment on above: Performed By: #### F T4, VITAD, FETIBC, FERR #### [facility] [address] [place] [address] Dr. Cecilio Gale Sodium [Moles/Vol] 142 mmol/L Normal 136-145 [facility] Comment on above: Performed By: #### F T4, VITAD, FETIBC, FERR #### [facility] [address] [place] [address] Dr. Cecilio Gale Urea nitrogen [Mass/Vol] 9.0 mg/dL Normal 7.0-18.0 [facility] Comment on above: Performed By: #### F T4, VITAD, FETIBC, FERR #### [facility] [address] [place] [address] Dr. Cecilio Gale Urea nitrogen/Creatinine [Mass ratio] 12.5 mg/mg Normal [facility] Comment on above: Performed By: #### F T4, VITAD, FETIBC, FERR #### [facility] [address] [place] [address] Dr. Cecilio Gale TSHon 01-11-2023 TSH 1.685 uIU/mL Normal 0.358-3.740 [facility] Comment on above: Performed By: #### F T4, VITAD, FETIBC, FERR #### [facility] [address] [place] [address] Dr. Cecilio Gale UA RANDOM W/MICROSCOPICon BACTERIA NONE SEEN Normal NONE SEEN [facility] Comment on above: Performed By: #### F T4, VITAD, FETIBC, FERR #### [facility] [address] [place] [address] Dr. Cecilio Gale Bilirubin Ql (U) Negative Normal NEGATIVE [facility] Comment on above: Performed By: #### F T4, VITAD, FETIBC, FERR #### [facility] [address] [place] [address] Dr. Cecilio Gale CAST NONE SEEN Normal NONE SEEN [facility] Comment on above: Performed By: #### F T4, VITAD, FETIBC, FERR #### [facility] [address] [place] [address] Dr. Cecilio Gale Clarity (U) CLEAR Normal CLEAR [facility] Comment on above: Performed By: #### F T4, VITAD, FETIBC, FERR #### [facility] [address] [place] [address] Dr. Cecilio Gale Color (U) LT. YELLOW Normal YELLOW [facility] Comment on above: Performed By: #### F T4, VITAD, FETIBC, FERR #### [facility] [address] [place] [address] Dr. Cecilio Gale Crystals LM Nom (Urine sed) NONE SEEN Normal NONE SEEN [facility] Comment on above: Performed By: #### F T4, VITAD, FETIBC, FERR #### [facility] [address] [place] [address] Dr. Cecilio Gale Epithelial cells LM Ql (Urine sed) FEW Abnormal NONE SEEN /RARE [facility] Comment on above: Performed By: #### F T4, VITAD, FETIBC, FERR #### [facility] [address] [place] [address] Dr. Cecilio Gale Glucose Ql (U) Negative Normal NEGATIVE [facility] Comment on above: Performed By: #### F T4, VITAD, FETIBC, FERR #### [facility] [address] [place] [address] Dr. Cecilio Gale Hemoglobin Ql (U) Negative Normal NEGATIVE [facility] Comment on above: Performed By: #### F T4, VITAD, FETIBC, FERR #### [facility] [address] [place] [address] Dr. Cecilio Gale Ketones Ql (U) Negative Normal NEGATIVE [facility] Comment on above: Performed By: #### F T4, VITAD, FETIBC, FERR #### [facility] [address] [place] [address] Dr. Cecilio Gale LEUKOCYTES Negative Normal NEGATIVE [facility] Comment on above: Performed By: #### F T4, VITAD, FETIBC, FERR #### [facility] [address] [address] [address] Cecilio Gale MUCOUS NONE SEEN Normal NONE SEEN [facility] Comment on above: Performed By: #### F T4, VITAD, FETIBC, FERR #### [facility] [address] [address] [address] Cecilio Gale Nitrite Ql (U) Negative Normal NEGATIVE [facility] Comment on above: Performed By: #### F T4, VITAD, FETIBC, FERR #### [facility] [address] [place] [address] Dr. Cecilio Gale pH (U) 7.5 [pH] Normal 5-9 [facility] Comment on above: Performed By: #### F T4, VITAD, FETIBC, FERR #### [facility] [address] [place] [address] Dr. Cecilio Gale RBC NONE SEEN Abnormal 0-2 [facility] Comment on above: Performed By: #### F T4, VITAD, FETIBC, FERR #### [facility] [address] [place] [address] Dr. Cecilio Gale SPEC GRAVITY 1.015 Normal 1.005-<=1.025 [facility] Comment on above: Performed By: #### F T4, VITAD, FETIBC, FERR #### [facility] [address] [address] [address] Cecilio Gale UA PROTEIN Negative Normal NEGATIVE/ TRACE [facility] Comment on above: Performed By: #### F T4, VITAD, FETIBC, FERR #### [facility] [address] [address] [address] Cecilio Gale Urobilinogen Qn (U) 0.2 {Anita'U}/dL Normal 0.2 - 1. 0 [facility] Comment on above: Performed By: #### F T4, VITAD, FETIBC, FERR #### [facility] [address] [place] [address] Dr. Cecilio Gale WBC NONE SEEN Normal NONE SEEN [facility] Comment on above: Performed By: #### F T4, VITAD, FETIBC, FERR #### [facility] [address] [place] [address] Dr. Cecilio Gale VITAMIN D 25 OHon 01-11-2023 VIT D 25-OH 60.7 ng/mL Normal [facility] Comment on above: Performed By: #### F T4, VITAD, FETIBC, FERR #### [facility] [address] [place] [address] Dr. Cecilio Gale VIT D RANGES SEE BELOW Normal [facility] Comment on above: Result Comment: <20 ng/mL Vit D deficient 20 - <30 ng/mL Vit D insufficient 30 - 100 ng/mL Vit D sufficient >100 ng/mL Potential Toxicity Performed By: #### F T4, VITAD, FETIBC, FERR #### [facility] [address] [place] [address] Dr. Cecilio Gale LACOSAMIDEon 10-14-2022 Lacosamide 5.4 ug/mL Normal 5.0-10.0 [facility] Comment on above: Result Comment: This test was developed and its performance characteristics determined by [facility]. It has not been cleared or approved by the Food and Drug Administration. Limit of Detection 0.5 . Mean plasma concentrations following maintenance dose 200 mg/day 4.99 +/- 2.51 ug/mL 400 mg/day 9.35 +/- 4.22 ug/mL 600 mg/day 12.46 +/- 5.60 ug/mL Performed By: #### F T4, VITAD, FETIBC, FERR #### [facility] [address] [place] [address] Dr. Cecilio Gale LEVETIRACETAM, SERUM OR PLAS MAon 10-12-2022 Levetiracetam, S 26.4 ug/mL Normal 10.0-40.0 [facility] Comment on above: Performed By: #### F T4, VITAD, FETIBC, FERR #### [facility] [address] [place] [address] Dr. Cecilio Gale TEGRETOLon 10-08-2022 TEGRETOL <0.5 Critically low 4.0-12.[address] [facility] Comment on above: Performed By: #### C ARB #### [facility] [address] [address] [address] Cecilio Gale General Surgery Office/Clini c Noteon 09-27-2022 General Surgery Office/Clinic Note Chief Complaint post operative follow up HPI Staff 13 day post operative follow up post colonoscopy with sigmoid polypectomy. History of Present Illness s/p colonoscopy with sigmoid polypectomy; doing well, denies abd pain, no blood in stools; pathology consistent with tubular adenoma, 1 cm polyp. Review of Systems ROS - Provider Constitutional: no fever, no sweats, no weight loss. Eyes: no glasses, no blurred vision, no visual loss. ENMT: no dentures, no hoarseness, no swallowing difficulties, no hearing loss, no ear infection(s), no nose bleeds. Cardiovascular: normal blood pressure, no chest pain, regular heartbeat, no heart murmur. Respiratory: no shortness of breath, no cough, no asthma, no wheezing. Gastrointestinal: no nausea, no vomiting, no diarrhea, no constipation, no blood in stool, no change in bowel habits, no abdominal pain, no hepatitis. Genitourinary: no kidney stones, no urine infection, no dysuria. Musculoskeletal: no pain, no weakness. Skin: no changing moles, no rash, no skin lumps. Neurologic: no seizures, no epilepsy, no headache. Psychiatric: no emotional or psychiatric problem. Heme/Lymph: no bleeding problems, no anemia, no blood clots, no transfusions. Allergy/Immunologic: no swollen lymph nodes/glands, no IV drug abuse. Other: Additional ROS info: Except as noted in the above Review of Systems and in the History of Present Illness, all other systems have been reviewed and are negative or noncontributory. Assessment/Plan 1. Benign neoplasm of sigmoid colon (D12.5: Benign neoplasm of sigmoid colon) plan surveillance colonoscopy in 3 years, call sooner if problems/questions. Follow-up No qualifying data available Problem List/Past Medical History Ongoing BMI 45.0-49.9, adult Epilepsy Hemochromatosis Hyperlipidemia Hypothyroidism LORENA (obstructive sleep apnea) Screening for malignant neoplasm of colon Tubular adenoma of colon Vitamin D deficiency Historical No qualifying data Procedure/Surgical History Colonoscopy (09/09/2022), Closed reduction of fracture of ankle, Craniotomy, Tubal ligation, Vaginal hysterectomy. Medications calcium-vitamin D folic acid 0.4 mg Tab, 0.4 mg= 1 tab(s), Oral, Daily Keppra 1000 mg oral tablet, 1000 mg= 1 tab(s), Oral, BID levothyroxine 50 mcg (0.05 mg) Tab, 50 mcg= 1 tab(s), Oral, Daily oxcarbazepine 300 mg Tab, 300 mg= 1 tab(s), Oral, BID valacyclovir 1 g Tab, 1 gm= 1 tab(s), Oral, Daily Vimpat 200 mg oral tablet, 200 mg= 1 tab(s), Oral, BID Vitamin D 50,000 intl units (1.25 mg) oral capsule, 13651 International_Unit= 1 cap(s), Oral, qWeek Allergies Depakote (Mood) PHENobarbital (Other) penicillin (Rash) Social History Alcohol - Denies Alcohol Use, 08/04/2022 Substance Abuse - Denies Substance Abuse, 08/04/2022 Tobacco Never (less than 100 in lifetime) Tobacco Use:. Never Smokeless Tobacco Use:., 08/04/2022 Family History Diabetes mellitus type 2: Father. Sleep apnea: Father, Sister and Brother. Stroke: Mother. Immunizations Vaccine Date Status Comments influenza virus vaccine, inactivated - Not Given Patient Refuses SARS-CoV-2 (COVID-19) mRNA BNT-162b2 vax 02/07/2021 Given Prophylaxis SARS-CoV-2 (COVID-19) mRNA BNT-162b2 vax 01/17/[address] [facility] Comment on above: Result Comment: Elec tronically Signed By: Kerry JONES MD\.br\Date and Time Signed: 09/27/22 18:54 EST Ambulatory Visit Summaryon 1 11-22-2021 Ambulatory Visit Summary MIKEY MONTEZ :1965 Visit Date:09/22/2022 Ambulatory Visit Instructions Your Care Team Attending Physician - Kerry JONES MD Primary Care Physician - Scotty Ruiz DO This Is Your Medications List calcium-vitamin D ergocalciferol (Vitamin D 50,000 intl units (1.25 mg) oral capsule) folic acid (folic acid 0.4 mg Tab) lacosamide (Vimpat 200 mg oral tablet) levetiracetam (Keppra 1000 mg oral tablet) levothyroxine (levothyroxine 50 mcg (0.05 mg) Tab) oxcarbazepine (oxcarbazepine 300 mg Tab) valacyclovir (valacyclovir 1 g Tab) Procedures Performed Colonoscopy (09/09/2022), Closed reduction of fracture of ankle, Craniotomy, Tubal ligation, Vaginal hysterectomy. Medications What How Much When Instructions Unchanged calcium-vitamin D Unchanged ergocalciferol (Vitamin D 50,000 intl units (1.25 mg) oral capsule) 1 Capsules By Mouth Every week Unchanged folic acid (folic acid 0.4 mg Tab) 1 Tablets By Mouth Every day Unchanged lacosamide (Vimpat 200 mg oral tablet) 1 Tablets By Mouth 2 times a day Unchanged levetiracetam (Keppra 1000 mg oral tablet) 1 Tablets By Mouth 2 times a day Unchanged levothyroxine (levothyroxine 50 mcg (0.05 mg) Tab) 1 Tablets By Mouth Every day Unchanged oxcarbazepine (oxcarbazepine 300 mg Tab) 1 Tablets By Mouth 2 times a day Unchanged valacyclovir (valacyclovir 1 g Tab) 1 Tablets By Mouth Every day Allergies Depakote (Mood) PHENobarbital (Other) penicillin (Rash) Problems Ongoing - Any problem that you are currently receiving treatment for. BMI 45.0-49.9, adult Epilepsy Hemochromatosis Hyperlipidemia Hypothyroidism LORENA (obstructive sleep apnea) Screening for malignant neoplasm of colon Vitamin D deficiency Normal [facility] Reminderson 09-22-2022 Reminders - From: Delmy Rebollar LPN To: SARAN - Clinical; Sent: 09/22/2022 15:29:30 EST Show up: 08/09/2025 07:00:00 EDT Subject: colonoscopy recall Due Date/Time: 09/09/2025 07:00:00 EST Reminder/Recall Patient is due for colonoscopy 09/09/2025 due to history of tubular adenoma. Normal [facility] Pathology Noteon 09-11-2022 Pathology Note [id number] #1.00CD:[address] [facility] Outside Colonoscopyon 2021 Outside Colonoscopy [id number] #1.00CD:[address] [facility] Lab Reportson 09-08-2022 Lab Reports [id number] #1.00CD:[address] [facility] Covid-19 PCR (CVDTB)on 08-10 SARS-CoV-2 (COVID-19) RNA CAL+probe Ql (Unsp spec) Not detected Normal NOT DETECTED [facility] Comment on above: Result Comment: This test is not yet approved or cleared by the [place] FDA. When there are no FDA-approved or cleared tests available, and other criteria are met, FDA can make tests available under an emergency access mechanism called an Emergency Use Authorization (EUA). The EUA for this test is supported by the System Planning Engineer of Health and Human Service's (HHS's) declaration that circumstances exist to justify the emergency use of in vitro diagnostics for the detection and/or diagnosis of the virus that causes COVID-19. This EUA will remain in effect (meaning this test can be used) for the duration of the COVID-19 declaration justifying emergency of IVDs, unless it is terminated or revoked by FDA (after which the test may no longer be used). When diagnostic testing is negative, the possibility of a false negative should be considered in the context of a patient's recent exposures and the presence of clinical signs and symptoms consistent with SARS-CoV-2. Performed By: #### C VDTB #### [facility] [address] [place] [address] Dr. Cecilio Gale Pre-Certification Formon Pre-Certification Form [id number] #1.00CD:[address] [facility] CBC W Auto Differential pane l (Bld)on 08-21-2022 Basophils (Bld) [#/Vol] 0.05 10*3/uL Normal <0.11 [facility] Comment on above: Order Comment: Speci men Type: BLOOD SPECIMEN Ordering Facility: [facility] Address: [address] [place] [address] Performed By: #### 5 7021-8 #### [facility] CLIA [id number] [address] [place] [address] Basophils/100 WBC (Bld) 0.8 % Normal [facility] Comment on above: Order Comment: Speci men Type: BLOOD SPECIMEN Ordering Facility: [facility] Address: [address] [place] [address] Performed By: #### 5 7021-8 #### [facility] CLIA [id number] [address] [place] [address] Differential cell count method Nom (Bld) Auto Normal [facility] Comment on above: Order Comment: Speci men Type: BLOOD SPECIMEN Ordering Facility: [facility] Address: [address] [place] [address] Performed By: #### 5 7021-8 #### [facility] CLIA [id number] [address] [place] [address] Eosinophils (Bld) [#/Vol] 10*3/uL Normal <0.46 [facility] Comment on above: Order Comment: Speci men Type: BLOOD SPECIMEN Ordering Facility: [facility] Address: [address] [place] [address] Performed By: #### 5 7021-8 #### [facility] CLIA [id number] [address] [place] [address] Eosinophils/100 WBC (Bld) 0.0 % Normal [facility] Comment on above: Order Comment: Speci men Type: BLOOD SPECIMEN Ordering Facility: [facility] Address: [address] [place] [address] Performed By: #### 5 7021-8 #### [facility] CLIA [id number] [address] [place] [address] [place] [address] Erythrocyte distribution width (RBC) [Ratio] 12.1 % Normal 11.5-15.0 [facility] Comment on above: Order Comment: Speci men Type: BLOOD SPECIMEN Ordering Facility: [facility] Address: [address] [place] [address] Performed By: #### 5 7021-8 #### [facility] CLIA [id number] [address] [place] [address] Hematocrit (Bld) [Volume fraction] 40.8 % Normal 36.0-46.0 [facility] Comment on above: Order Comment: Speci men Type: BLOOD SPECIMEN Ordering Facility: [facility] Address: [address] [place] [address] Performed By: #### 5 7021-8 #### [facility] CLIA [id number] [address] [place] [address] Hemoglobin (Bld) [Mass/Vol] 14.3 g/dL Normal 11.5-15.5 [facility] Comment on above: Order Comment: Speci men Type: BLOOD SPECIMEN Ordering Facility: [facility] Address: [address] [place] [address] Performed By: #### 5 7021-8 #### [facility] CLIA [id number] [address] [place] [address] IMMATURE GRAN % 0.2 % Normal [facility] Comment on above: Order Comment: Speci men Type: BLOOD SPECIMEN Ordering Facility: [facility] Address: [address] [place] [address] Performed By: #### 5 7021-8 #### [facility] CLIA [id number] [address] [place] [address] 22084 IMMATURE GRAN ABS <0.03 Normal <0.10 [facility] Comment on above: Order Comment: Speci men Type: BLOOD SPECIMEN Ordering Facility: [facility] Address: [address] [place] [address] Performed By: #### 5 7021-8 #### [facility] CLIA [id number] [address] [place] [address] Lymphocytes (Bld) [#/Vol] 2.64 10*3/uL Normal 1.00-4.00 [facility] Comment on above: Order Comment: Speci men Type: BLOOD SPECIMEN Ordering Facility: [facility] Address: [address] [place] [address] Performed By: #### 5 7021-8 #### [facility] CLIA [id number] [address] [place] [address] Lymphocytes/100 WBC (Bld) 41.4 % Normal [facility] Comment on above: Order Comment: Speci men Type: BLOOD SPECIMEN Ordering Facility: [facility] Address: [address] [place] [address] Performed By: #### 5 7021-8 #### [facility] CLIA [id number] [address] [place] [address] 11035 MCH (RBC) [Entitic mass] 33.2 pg Normal 26.0-34.0 [facility] Comment on above: Order Comment: Speci men Type: BLOOD SPECIMEN Ordering Facility: [facility] Address: [address] [place] [address] Performed By: #### 5 7021-8 #### [facility] CLIA [id number] [address] [place] [address] 52937 MCHC (RBC) [Mass/Vol] 35.0 g/dL Normal 30.5-36.0 [facility] Comment on above: Order Comment: Speci men Type: BLOOD SPECIMEN Ordering Facility: [facility] Address: [address] [place] [address] Performed By: #### 5 7021-8 #### [facility] CLIA [id number] [address] [place] [address] 58755 MCV (RBC) [Entitic vol] 94.7 fL Normal 80.0-100.0 [facility] Comment on above: Order Comment: Speci men Type: BLOOD SPECIMEN Ordering Facility: [facility] Address: [address] [place] [address] Performed By: #### 5 7021-8 #### [facility] CLIA [id number] [address] [place] [address] 60784 Monocytes (Bld) [#/Vol] 0.61 10*3/uL Normal <0.87 [facility] Comment on above: Order Comment: Speci men Type: BLOOD SPECIMEN Ordering Facility: [facility] Address: [address] [place] [address] Performed By: #### 5 7021-8 #### [facility] CLIA [id number] [address] [place] [address] 18179 Monocytes/100 WBC (Bld) 9.6 % Normal [facility] Comment on above: Order Comment: Speci men Type: BLOOD SPECIMEN Ordering Facility: [facility] Address: [address] [place] [address] Performed By: #### 5 7021-8 #### [facility] CLIA [id number] [address] [place] [address] 04278 Neutrophils (Bld) [#/Vol] 3.06 10*3/uL Normal 1.45-7.50 [facility] Comment on above: Order Comment: Speci men Type: BLOOD SPECIMEN Ordering Facility: [facility] Address: [address] [place] [address] Performed By: #### 5 7021-8 #### [facility] CLIA [id number] [address] [place] [address] 57264 Neutrophils/100 WBC (Bld) 48.0 % Normal [facility] Comment on above: Order Comment: Speci men Type: BLOOD SPECIMEN Ordering Facility: [facility] Address: [address] [place] [address] Performed By: #### 5 7021-8 #### [facility] CLIA [id number] [address] [place] [address] Nucleated RBC (Bld) [#/Vol] 10*3/uL Normal <0.01 [facility] Comment on above: Order Comment: Speci men Type: BLOOD SPECIMEN Ordering Facility: [facility] Address: [address] [place] [address] Performed By: #### 5 7021-8 #### [facility] CLIA [id number] [address] [place] [address] 98342 Nucleated RBC/100 WBC (Bld) [Ratio] 0.0 /100 WBC Normal [facility] Comment on above: Order Comment: Speci men Type: BLOOD SPECIMEN Ordering Facility: [facility] Address: [address] [place] [address] Performed By: #### 5 7021-8 #### [facility] CLIA [id number] [address] [place] [address] 49595 Platelet mean volume (Bld) [Entitic vol] 8.3 fL Low 9.0-12.7 [facility] Comment on above: Order Comment: Speci men Type: BLOOD SPECIMEN Ordering Facility: [facility] Address: [address] [place] [address] Performed By: #### 5 7021-8 #### [facility] CLIA [id number] [address] [place] [address] 70938 Platelets (Bld) [#/Vol] 345 10*3/uL Normal 150-400 [facility] Comment on above: Order Comment: Speci men Type: BLOOD SPECIMEN Ordering Facility: [facility] Address: [address] [place], [place] [address] Performed By: #### 5 7021-8 #### [facility] CLIA [id number] [address] [place] [address] 16629 RBC (Bld) [#/Vol] 4.31 10*6/uL Normal 3.90-5.20 [facility] Comment on above: Order Comment: Speci men Type: BLOOD SPECIMEN Ordering Facility: [facility] Address: [address] [address] Performed By: #### 5 7021-8 #### [facility] CLIA [id number] [address] [place] [address] 51907 WBC (Bld) [#/Vol] 6.37 10*3/uL Normal 3.70-11.00 [facility] Comment on above: Order Comment: Speci men Type: BLOOD SPECIMEN Ordering Facility: [facility] Address: [address] [place] [address] Performed By: #### 5 7021-8 #### [facility] CLIA [id number] [address] [place] [address] 65782 Comprehensive metabolic 2000 panelon 08-21-2022 Albumin [Mass/Vol] 4.3 g/dL Normal 3.9-4.9 [facility] Comment on above: Order Comment: Speci men Type: BLOOD SPECIMEN Ordering Facility: [facility] Address: [address] [place] [address] Performed By: #### 2 4323-8 #### [facility] CLIA [id number] [address] [place] [address] 26108 ALP [Catalytic activity/Vol] 167 U/L High 34-123 [facility] Comment on above: Order Comment: Speci men Type: BLOOD SPECIMEN Ordering Facility: [facility] Address: [address] [place] [address] Performed By: #### 2 4323-8 #### [facility] CLIA [id number] [address] [place] [address] 92512 ALT [Catalytic activity/Vol] 13 U/L Normal 7-38 [facility] Comment on above: Order Comment: Speci men Type: BLOOD SPECIMEN Ordering Facility: [facility] Address: [address] [place] [address] Performed By: #### 2 4323-8 #### [facility] CLIA [id number] [address] [place] [address] 86144 Anion gap [Moles/Vol] 9 mmol/L Normal 9-18 [facility] Comment on above: Order Comment: Speci men Type: BLOOD SPECIMEN Ordering Facility: [facility] Address: [address] [place], [place] [address] Performed By: #### 2 4323-8 #### [facility] CLIA [id number] [address] [place] [address] 36409 AST [Catalytic activity/Vol] 16 U/L Normal 13-35 [facility] Comment on above: Order Comment: Speci men Type: BLOOD SPECIMEN Ordering Facility: [facility] Address: [address] [place] [address] Performed By: #### 2 4323-8 #### [facility] CLIA [id number] [address] [place] [address] 62986 Bilirubin [Mass/Vol] 0.3 mg/dL Normal 0.2-1.3 [facility] Comment on above: Order Comment: Speci men Type: BLOOD SPECIMEN Ordering Facility: [facility] Address: [address] [place], [place] [address] Performed By: #### 2 4323-8 #### [facility] CLIA [id number] [address] [place] [address] 02399 Calcium [Mass/Vol] 9.5 mg/dL Normal 8.5-10.2 [facility] Comment on above: Order Comment: Speci men Type: BLOOD SPECIMEN Ordering Facility: [facility] Address: [address] Performed By: #### 2 4323-8 #### [facility] CLIA [id number] [address] [place] [address] 53034 Chloride [Moles/Vol] 98 mmol/L Normal 97-105 [facility] Comment on above: Order Comment: Speci men Type: BLOOD SPECIMEN Ordering Facility: [facility] Address: [address] [place], [place] [address] Performed By: #### 2 4323-8 #### [facility] CLIA [id number] [address] [place] [address] CO2 [Moles/Vol] 28 mmol/L Normal 22-30 [facility] Comment on above: Order Comment: Speci men Type: BLOOD SPECIMEN Ordering Facility: [facility] Address: [address] [place] [address] Performed By: #### 2 4323-8 #### [facility] CLIA [id number] [address] [place] [address] 40050 Creatinine [Mass/Vol] 0.74 mg/dL Normal 0.58-0.96 [facility] Comment on above: Order Comment: Speci men Type: BLOOD SPECIMEN Ordering Facility: [facility] Address: [address] [place] [address] Performed By: #### 2 4323-8 #### [facility] CLIA [id number] [address] [place] [address] 48597 ESTIMATED GLOMERULAR FILTRATION RATE 96 mL/min/1.73m??? Normal >=60 [facility] Comment on above: Order Comment: Speci men Type: BLOOD SPECIMEN Ordering Facility: [facility] Address: [address] [place] [address] Result Comment: Odmonique mated Glomerular Filtration Rate (eGFR) is calculated using the 2020 CKD-EPI creatinine equation. This equation utilizes serum creatinine, sex, and age as parameters. The creatinine assay has traceable calibration to isotope dilution-mass spectrometry. Refer to KDIGO guidelines for clinical interpretation. In patients with unstable renal function, e.g. those with acute kidney injury, the eGFR may not accurately reflect actual GFR. Performed By: #### 2 4323-8 #### [facility] CLIA [id number] [address] [place] [address] 67982 Glucose [Mass/Vol] 110 mg/dL High 74-99 [facility] Comment on above: Order Comment: Speci men Type: BLOOD SPECIMEN Ordering Facility: [facility] Address: [address] [place] [address] Result Comment: The [place] [employer] (ADA) provides guidance for cutoff values for fasting glucose and random glucose. The ADA defines fasting as no caloric intake for at least 8 hours. Fasting plasma glucose results between 100 to 125 mg/dL indicate increased risk for diabetes (prediabetes). Fasting plasma glucose results greater than or equal to 126 mg/dL meet the criteria for diagnosis of diabetes. In the absence of unequivocal hyperglycemia, results should be confirmed by repeat testing. In a patient with classic symptoms of hyperglycemia or hyperglycemic crisis, random plasma glucose results greater than or equal to 200 mg/dL meet the criteria for diagnosis of diabetes. Reference: Standards of Medical Care in Diabetes 2016, [place] [employer]. Diabetes Care. 2016.39(Suppl 1). Performed By: #### 2 4323-8 #### [facility] CLIA [id number] [address] [place] [address] 18505 Potassium [Moles/Vol] 4.6 mmol/L Normal 3.7-5.1 [facility] Comment on above: Order Comment: Speci men Type: BLOOD SPECIMEN Ordering Facility: [facility] Address: [address] [place] [address] Performed By: #### 2 4323-8 #### [facility] CLIA [id number] [address] [place] [address] 54454 Protein [Mass/Vol] 7.1 g/dL Normal 6.3-8.0 [facility] Comment on above: Order Comment: Speci men Type: BLOOD SPECIMEN Ordering Facility: [facility] Address: [address] [address] Performed By: #### 2 4323-8 #### [facility] CLIA [id number] [address] [place] [address] 51884 Sodium [Moles/Vol] 135 mmol/L Low 136-144 [facility] Comment on above: Order Comment: Speci men Type: BLOOD SPECIMEN Ordering Facility: [facility] Address: [address] Performed By: #### 2 4323-8 #### [facility] CLIA [id number] [address] [place] [address] Urea nitrogen [Mass/Vol] 10 mg/dL Normal 7-21 [facility] Comment on above: Order Comment: Speci men Type: BLOOD SPECIMEN Ordering Facility: [facility] Address: [address] [place] [address] Performed By: #### 2 4323-8 #### [facility] CLIA [id number] [address] [place] [address] 16546 Ferritin SerPl-mCncon 2021 Ferritin [Mass/Vol] 196.0 ng/mL Normal 14.7-205.1 [facility] Comment on above: Order Comment: Speci men Type: BLOOD SPECIMEN Ordering Facility: [facility] Address: [address] [place] [address] Performed By: #### 5 0190-8, 2275-4 #### [facility] CLIA [id number] [address] [place] [address] [place] Iron and Iron binding capaci ty panelon 08-21-2022 Iron [Mass/Vol] 133 ug/dL Normal 41-186 [facility] Comment on above: Order Comment: Speci men Type: BLOOD SPECIMEN Ordering Facility: [facility] Address: [address] [place], [place] [address] Performed By: #### 5 0190-8, 2275-4 #### [facility] CLIA [id number] [address] [place] [address] [place] Iron binding capacity [Mass/Vol] 280 ug/dL Normal 232-386 [facility] Comment on above: Order Comment: Speci men Type: BLOOD SPECIMEN Ordering Facility: [facility] Address: [address] [place], [place] [address] Performed By: #### 5 0190-8, 2275-4 #### [facility] CLIA [id number] [address] [place] [address] [place] Iron/TIBC [Molar ratio] 47.5 % Normal 15.0-57.0 [facility] Comment on above: Order Comment: Speci men Type: BLOOD SPECIMEN Ordering Facility: [facility] Address: [address] [place] [address] Performed By: #### 5 0190-8, 2276-4 #### [facility] CLIA [id number] [address] [place] [address] [id number] [place], [place] [address] [place] Consent for Procedure/Surger yon 08-05-2022 Consent for Procedure/Surgery [id number] #[id number]:[id number] [facility] Ambulatory Visit Summaryon 0 08-04-2022 Ambulatory Visit Summary MIKEY MONTEZ :1965 Visit Date:08/04/2022 Ambulatory Visit Instructions Your Diagnosis Screening for malignant neoplasm of colon BMI 45.0-49.9, adult Your Care Team Attending Physician - Kerry JONES MD Primary Care Physician - Scotty Ruiz DO Referring Physician - Scotty Ruiz DO This Is Your Medications List Contact prescribing physician if questions or concerns calcium-vitamin D ergocalciferol (Vitamin D 50,000 intl units (1.25 mg) oral capsule) folic acid (folic acid 0.4 mg Tab) lacosamide (Vimpat 200 mg oral tablet) levetiracetam (Keppra 1000 mg oral tablet) levothyroxine (levothyroxine 50 mcg (0.05 mg) Tab) oxcarbazepine (oxcarbazepine 300 mg Tab) valacyclovir (valacyclovir 1 g Tab) Procedures Performed Closed reduction of fracture of ankle, Craniotomy, Tubal ligation, Vaginal hysterectomy. Discharge Vitals Heart Rate (Peripheral) 72 Respiratory Rate 16 Blood Pressure 118/80 Height 165.1 cm Height 65 in Weight 125 kg Weight 275 lb BMI 45.86 Medications What How Much When Instructions Unchanged calcium-vitamin D Contact prescribing physician if questions or concerns Unchanged ergocalciferol (Vitamin D 50,000 intl units (1.25 mg) oral capsule) 1 Capsules By Mouth Every week Contact prescribing physician if questions or concerns Unchanged folic acid (folic acid 0.4 mg Tab) 1 Tablets By Mouth Every day Contact prescribing physician if questions or concerns Unchanged lacosamide (Vimpat 200 mg oral tablet) 1 Tablets By Mouth 2 times a day Contact prescribing physician if questions or concerns Unchanged levetiracetam (Keppra 1000 mg oral tablet) 1 Tablets By Mouth 2 times a day Contact prescribing physician if questions or concerns Unchanged levothyroxine (levothyroxine 50 mcg (0.05 mg) Tab) 1 Tablets By Mouth Every day Contact prescribing physician if questions or concerns Unchanged oxcarbazepine (oxcarbazepine 300 mg Tab) 1 Tablets By Mouth 2 times a day Contact prescribing physician if questions or concerns Unchanged valacyclovir (valacyclovir 1 g Tab) 1 Tablets By Mouth Every day Contact prescribing physician if questions or concerns Medications and Immunizations Administered Not Given influenza virus vaccine, inactivated, Patient Refuses Allergies Depakote (Mood) PHENobarbital (Other) penicillin (Rash) Problems Ongoing - Any problem that you are currently receiving treatment for. BMI 45.0-49.9, adult Epilepsy Hemochromatosis Hyperlipidemia Hypothyroidism LORENA (obstructive sleep apnea) Screening for malignant neoplasm of colon Vitamin D deficiency Normal [facility] Comprehensive metabolic 2000 panelon 07-30-2022 Albumin [Mass/Vol] 4.4 g/dL 3.9 - 4.9 g/dL [facility] ALP [Catalytic activity/Vol] 166 U/L High 34 - 123 U/L [facility] ALT [Catalytic activity/Vol] 18 U/L 7 - 38 U/L [facility] Anion gap [Moles/Vol] 11 mmol/L 9 - 18 mmol/L [facility] AST [Catalytic activity/Vol] 21 U/L 13 - 35 U/L [facility] Bilirubin [Mass/Vol] 0.4 mg/dL 0.2 - 1 .3 mg/dL [facility] Calcium [Mass/Vol] 9.5 mg/dL 8.5 - 10. 2 mg/dL [facility] Chloride [Moles/Vol] 98 mmol/L 97 - 10 5 mmol/L [facility] CO2 [Moles/Vol] 25 mmol/L 22 - 30 mmol/L [facility] Creatinine [Mass/Vol] 0.66 mg/dL 0.58 - 0.96 mg/dL [facility] Estimated Glomerular Filtration Rate 104 mL/min/1.73m >=60 mL/min/1.73m [facility] Glucose [Mass/Vol] 91 mg/dL 74 - 99 mg/dL [facility] Potassium [Moles/Vol] 4.8 mmol/L 3.7 - 5.1 mmol/L [facility] Protein [Mass/Vol] 7.3 g/dL 6.3 - 8.0 g/dL [facility] Sodium [Moles/Vol] 134 mmol/L Low 136 - 144 mmol/L [facility] Urea nitrogen [Mass/Vol] 8 mg/dL 7 - 21 mg/dL [facility] FERRITIN BLDon 07-30-2022 Ferritin [Mass/Vol] 176.0 ng/mL 14.7 - 2 05.1 ng/mL [facility] Iron and Iron binding capaci ty panelon 07-30-2022 Iron [Mass/Vol] 149 ug/dL 41 - 186 ug/dL [facility] Iron binding capacity [Mass/Vol] 273 ug/dL 232 - 386 ug/dL [facility] Iron/TIBC [Molar ratio] 54.6 % 15.0 - 57.0 % [facility] CBC W Auto Differential pane l (Bld)on 07-29-2022 Basophils (Bld) [#/Vol] 0.05 10*3/uL Normal <0.11 [facility] Comment on above: Order Comment: Speci men Type: BLOOD SPECIMEN Ordering Facility: [facility] Address: [address] [place] [address] Performed By: #### 5 7021-8 #### [facility] CLIA [id number] [address] [place] [address] 89177 Basophils/100 WBC (Bld) 0.9 % Normal [facility] Comment on above: Order Comment: Speci men Type: BLOOD SPECIMEN Ordering Facility: [facility] Address: [address] [place] [address] Performed By: #### 5 7021-8 #### [facility] CLIA [id number] [address] [place] [address] 14737 Differential cell count method Nom (Bld) Auto Normal [facility] Comment on above: Order Comment: Speci men Type: BLOOD SPECIMEN Ordering Facility: [facility] Address: [address] [address] Performed By: #### 5 7021-8 #### [facility] CLIA [id number] [address] [place] [address] 79669 Eosinophils (Bld) [#/Vol] 10*3/uL Normal <0.46 [facility] Comment on above: Order Comment: Speci men Type: BLOOD SPECIMEN Ordering Facility: [facility] Address: [address] [place] [address] Performed By: #### 5 7021-8 #### [facility] CLIA [id number] [address] [place] [address] 07262 Eosinophils/100 WBC (Bld) 0.0 % Normal [facility] Comment on above: Order Comment: Speci men Type: BLOOD SPECIMEN Ordering Facility: [facility] Address: [address] [place] [address] Performed By: #### 5 7021-8 #### [facility] CLIA [id number] [address] [place] [address] 09791 Erythrocyte distribution width (RBC) [Ratio] 12.1 % Normal 11.5-15.0 [facility] Comment on above: Order Comment: Speci men Type: BLOOD SPECIMEN Ordering Facility: [facility] Address: [address] [place] [address] Performed By: #### 5 7021-8 #### [facility] CLIA [id number] [address] [place] [address] 65402 Hematocrit (Bld) [Volume fraction] 41.6 % Normal 36.0-46.0 [facility] Comment on above: Order Comment: Speci men Type: BLOOD SPECIMEN Ordering Facility: [facility] Address: [address] [place] [address] Performed By: #### 5 7021-8 #### [facility] CLIA [id number] [address] [place] [address] 46517 Hemoglobin (Bld) [Mass/Vol] 14.5 g/dL Normal 11.5-15.5 [facility] Comment on above: Order Comment: Speci men Type: BLOOD SPECIMEN Ordering Facility: [facility] Address: [address] [place] [address] Performed By: #### 5 7021-8 #### [facility] CLIA [id number] [address] [place] [address] 93920 IMMATURE GRAN % 0.3 % Normal [facility] Comment on above: Order Comment: Speci men Type: BLOOD SPECIMEN Ordering Facility: [facility] Address: [address] [place] [address] Performed By: #### 5 7021-8 #### [facility] CLIA [id number] [address] [place] [address] 70920 IMMATURE GRAN ABS <0.03 Normal <0.10 [facility] Comment on above: Order Comment: Speci men Type: BLOOD SPECIMEN Ordering Facility: [facility] Address: [address] [place] [address] Performed By: #### 5 7021-8 #### [facility] CLIA [id number] [address] [place] [address] 79113 Lymphocytes (Bld) [#/Vol] 2.09 10*3/uL Normal 1.00-4.00 [facility] Comment on above: Order Comment: Speci men Type: BLOOD SPECIMEN Ordering Facility: [facility] Address: [address] [place] [address] Performed By: #### 5 7021-8 #### [facility] CLIA [id number] [address] [place] [address] 80974 Lymphocytes/100 WBC (Bld) 36.0 % Normal [facility] Comment on above: Order Comment: Speci men Type: BLOOD SPECIMEN Ordering Facility: [facility] Address: [address] [place] [address] Performed By: #### 5 7021-8 #### [facility] CLIA [id number] [address] [place] [address] MCH (RBC) [Entitic mass] 33.0 pg Normal 26.0-34.0 [facility] Comment on above: Order Comment: Speci men Type: BLOOD SPECIMEN Ordering Facility: [facility] Address: [address] [place] [address] Performed By: #### 5 7021-8 #### [facility] CLIA [id number] [address] [place] [address] 16962 MCHC (RBC) [Mass/Vol] 34.9 g/dL Normal 30.5-36.0 [facility] Comment on above: Order Comment: Speci men Type: BLOOD SPECIMEN Ordering Facility: [facility] Address: [address] [place] [address] Performed By: #### 5 7021-8 #### [facility] CLIA [id number] [address] [place] [address] 74782 MCV (RBC) [Entitic vol] 94.8 fL Normal 80.0-100.0 [facility] Comment on above: Order Comment: Speci men Type: BLOOD SPECIMEN Ordering Facility: [facility] Address: [address] [place] [address] Performed By: #### 5 7021-8 #### [facility] CLIA [id number] [address] [place] [address]2436 Monocytes (Bld) [#/Vol] 0.44 10*3/uL Normal <0.87 [facility] Comment on above: Order Comment: Speci men Type: BLOOD SPECIMEN Ordering Facility: [facility] Address: [address] [place] [address] Performed By: #### 5 7021-8 #### [facility] CLIA [id number] [address] [place] [address] 59540 Monocytes/100 WBC (Bld) 7.6 % Normal [facility] Comment on above: Order Comment: Speci men Type: BLOOD SPECIMEN Ordering Facility: [facility] Address: [address] [place] [address] Performed By: #### 5 7021-8 #### [facility] CLIA [id number] [address] [place] [address] 44333 Neutrophils (Bld) [#/Vol] 3.21 10*3/uL Normal 1.45-7.50 [facility] Comment on above: Order Comment: Speci men Type: BLOOD SPECIMEN Ordering Facility: [facility] Address: [address] [place] [address] Performed By: #### 5 7021-8 #### [facility] CLIA [id number] [address] [place] [address] 75211 Neutrophils/100 WBC (Bld) 55.2 % Normal [facility] Comment on above: Order Comment: Speci men Type: BLOOD SPECIMEN Ordering Facility: [facility] Address: [address] [place] [address] Performed By: #### 5 7021-8 #### [facility] CLIA [id number] [address] [place] [address] 23131 Nucleated RBC (Bld) [#/Vol] 10*3/uL Normal <0.01 [facility] Comment on above: Order Comment: Speci men Type: BLOOD SPECIMEN Ordering Facility: [facility] Address: [address] [place] [address] Performed By: #### 5 7021-8 #### [facility] CLIA [id number] [address] [place] [address] 69788 Nucleated RBC/100 WBC (Bld) [Ratio] 0.0 /100 WBC Normal [facility] Comment on above: Order Comment: Speci men Type: BLOOD SPECIMEN Ordering Facility: [facility] Address: [address] [place] [address] Performed By: #### 5 7021-8 #### [facility] CLIA [id number] [address] [place] [address] [place] [address] Platelet mean volume (Bld) [Entitic vol] 8.6 fL Low 9.0-12.7 [facility] Comment on above: Order Comment: Speci men Type: BLOOD SPECIMEN Ordering Facility: [facility] Address: [address] [place] [address] Performed By: #### 5 7021-8 #### [facility] CLIA [id number] [address] [place] [address] 16734 Platelets (Bld) [#/Vol] 311 10*3/uL Normal 150-400 [facility] Comment on above: Order Comment: Speci men Type: BLOOD SPECIMEN Ordering Facility: [facility] Address: [address] [place] [address] Performed By: #### 5 7021-8 #### [facility] CLIA [id number] [address] [place] [address] 31844 RBC (Bld) [#/Vol] 4.39 10*6/uL Normal 3.90-5.20 [facility] Comment on above: Order Comment: Speci men Type: BLOOD SPECIMEN Ordering Facility: [facility] Address: [address] [place] [address] Performed By: #### 5 7021-8 #### [facility] CLIA [id number] [address] [place] [address] 25684 WBC (Bld) [#/Vol] 5.81 10*3/uL Normal 3.70-11.00 [facility] Comment on above: Order Comment: Speci men Type: BLOOD SPECIMEN Ordering Facility: [facility] Address: [address] [place] [address] Performed By: #### 5 7021-8 #### [facility] CLIA [id number] [address] [place] [address] 40962 Abs Immature Gran <0.10 k/uL [facility] Basophils (Bld) [#/Vol] 0.05 10*3/uL <0.11 k/uL [facility] Basophils/100 WBC (Bld) 0.9 % [facility] Differential cell count method Nom (Bld) Auto [facility] Eosinophils (Bld) [#/Vol] <0.46 k/uL [facility] Eosinophils/100 WBC (Bld) 0.0 % [facility] Erythrocyte distribution width (RBC) [Ratio] 12.1 % 11.5 - 15.0 % [facility] Hematocrit (Bld) [Volume fraction] 41.6 % 36.0 - 46.0 % [facility] Hemoglobin (Bld) [Mass/Vol] 14.5 g/dL 11.5 - 15.5 g/dL [facility] Immature Gran % 0.3 % [facility] Lymphocytes (Bld) [#/Vol] 2.09 10*3/uL 1.00 - 4.00 k/uL [facility] Lymphocytes/100 WBC (Bld) 36.0 % [facility] MCH (RBC) [Entitic mass] 33.0 pg 26.0 - 34.0 pg [facility] MCHC (RBC) [Mass/Vol] 34.9 g/dL 30.5 - 36.0 g/dL [facility] MCV (RBC) [Entitic vol] 94.8 fL 80.0 - 100.0 fL [facility] Monocytes (Bld) [#/Vol] 0.44 10*3/uL <0.87 k/uL [facility] Monocytes/100 WBC (Bld) 7.6 % [facility] Neutrophils (Bld) [#/Vol] 3.21 10*3/uL 1.45 - 7.50 k/uL [facility] Neutrophils/100 WBC (Bld) 55.2 % [facility] Nucleated RBC (Bld) [#/Vol] <0.01 k/uL [facility] Nucleated RBC/100 WBC (Bld) [Ratio] 0.0 /100 WBC [facility] Platelet mean volume (Bld) [Entitic vol] 8.6 fL Low 9.0 - 12.7 fL [facility] Platelets (Bld) [#/Vol] 311 10*3/uL 150 - 400 k/uL [facility] RBC (Bld) [#/Vol] 4.39 10*6/uL 3.90 - 5.2 0 m/uL [facility] WBC (Bld) [#/Vol] 5.81 10*3/uL 3.70 - 11. 00 k/uL [facility] CNOVSPon 07-29-2022 CNOVSP Visit (SP) Office ([place]) MIKEY MONTEZ ([id number]) 1965 F Date Time Provider Department 07/29/22 11:00 AM RICCI GARCIA During your visit today, we recorded the following information about you: Temperature Pulse Respiration Blood pressure 97.1 degrees 83/minute 16/minute 152/89 Weight Height 123 kg 1.651 m Ricci Garcia MD 07/30/2022 12:33 PM Signed NAME: Mikey Montez [facility] NO.: [id number] DATE OF SERVICE: July 29, 2022 Referring Provider: Scotty Ruiz Consultation requested by Dr. Ruiz for an opinion regarding Ms. Mikey Montez, and my final recommendations will be communicated back to the requesting physician by way of shared medical record or letter via US mail. Additional Clinicians involved in Mikey Montez's care: DIAGNOSIS: Elevated iron ASSESSMENT: 56 year old woman with prior history of sleep apnea as well as seizures who was found to have intermittently elevated iron levels concerning for HFE. She's s/p JENNIFER almost 20 years ago and Ferritin is normal so my suspicion for HFE is low. We will check gene studies to make a determination. PLAN: HFE and iron labs today Call results in 2 weeks. - HPI: CASE HISTORY: 07/08/2022 - Normal CBC, iron 229, iron sat 79%, ferritin 182 2003 JENNIFER/BSO Initial Visit, July 29, 2022: Mikey Montez presents today Hematology and Oncology evaluation. She is a 56 year old female who multiple medical problems including seizure disorder for which she has had cranial surgery for in the past presents with variable iron levels. More recently iron has been elevated but ferritin is normal. She was referred for a concern of iron overload / metabolism issues and so will work her up for HFE. - REVIEW OF SYSTEMS Per HPI and otherwise negative by full review of organ systems. - ECOG PERFORMANCE STATUS: 0 PHYSICAL EXAMINATION: Vitals: BP 152/89 Pulse 83 Temp (Src) 97.1 (Temporal) Resp 16 Ht 5' 5 (1.65m) Wt 271 lb 1.6 oz (123.0kg) SpO2 98% BMI 45.11 kg/(m2). Body surface area is 2.38 meters squared. Exam limited to gross visualization where appropriate due to COVID-19. Gen.: This is an age-appropriate patient in no acute distress. Head: Appears atraumatic with no visible lesions. Eyes: Pupils equally round and reactive to light, extraocular muscles are intact. Neck: Supple. Mouth: Masked. Respiratory: Appears to be respiring comfortably. Neurologic: Nonfocal to gross visualization. Alert and oriented ?3. Psychiatric: No evidence of inappropriate anxiety or depression. Skin: Visible areas of skin without rash, lesions, wounds or petechiae. - ALLERGIES: ALLERGIES Allergen Reactions Penicillins rash Phenobarbital Mental changes MEDICATIONS: calcium phosphate dibas/vit D3 (VITAMIN D, WITH CALCIUM, ORAL) levETIRAcetam (KEPPRA) 1,000 mg tablet OXcarbazepine (TRILEPTAL) 300 mg tablet VITAMIN D 50,000 unit capsule PREMARIN 0.625 mg tablet levothyroxine (SYNTHROID) 25 mcg tablet meloxicam (MOBIC) 15 mg tablet VALACYCLOVIR 500 MG TAB Take one(1) tablet daily. 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 Normal [facility] Comprehensive metabolic 2000 panelon 07-29-2022 Albumin [Mass/Vol] 4.4 g/dL Normal 3.9-4.9 [facility] Comment on above: Order Comment: Speci men Type: BLOOD SPECIMEN Ordering Facility: [facility] Address: [address] [place] [address] Performed By: #### 2 4323-8 #### [facility] CLIA [id number] [address] [place] [address] [place] ALP [Catalytic activity/Vol] 166 U/L High 34-123 [facility] Comment on above: Order Comment: Speci men Type: BLOOD SPECIMEN Ordering Facility: [facility] Address: [address] [place] [address] Performed By: #### 2 4323-8 #### [facility] CLIA [id number] [address] [place] [address] [place] ALT [Catalytic activity/Vol] 18 U/L Normal 7-38 [facility] Comment on above: Order Comment: Speci men Type: BLOOD SPECIMEN Ordering Facility: [facility] Address: [address] [place] [address] Performed By: #### 2 4323-8 #### [facility] CLIA [id number] [address] [place] [address] [place] Anion gap [Moles/Vol] 11 mmol/L Normal 9-18 [facility] Comment on above: Order Comment: Speci men Type: BLOOD SPECIMEN Ordering Facility: [facility] Address: [address] [place] [address] Performed By: #### 2 4323-8 #### [facility] CLIA [id number] [address] [place] [address] [place] AST [Catalytic activity/Vol] 21 U/L Normal 13-35 [facility] Comment on above: Order Comment: Speci men Type: BLOOD SPECIMEN Ordering Facility: [facility] Address: [address] [place], [place] [address] Performed By: #### 2 4323-8 #### [facility] CLIA [id number] [address] [place] [address] [place] Bilirubin [Mass/Vol] 0.4 mg/dL Normal 0.2-1.3 [facility] Comment on above: Order Comment: Speci men Type: BLOOD SPECIMEN Ordering Facility: [facility] Address: [address] [place] [address] Performed By: #### 2 4323-8 #### [facility] CLIA [id number] [address] [place] [address] [place] Calcium [Mass/Vol] 9.5 mg/dL Normal 8.5-10.2 [facility] Comment on above: Order Comment: Speci men Type: BLOOD SPECIMEN Ordering Facility: [facility] Address: [address] [place] [address] Performed By: #### 2 4323-8 #### [facility] CLIA [id number] [address] [place] [address] [place] Chloride [Moles/Vol] 98 mmol/L Normal 97-105 [facility] Comment on above: Order Comment: Speci men Type: BLOOD SPECIMEN Ordering Facility: [facility] Address: [address] [place] [address] Performed By: #### 2 4323-8 #### [facility] CLIA [id number] [address] [place] [address] [place] CO2 [Moles/Vol] 25 mmol/L Normal 22-30 [facility] Comment on above: Order Comment: Speci men Type: BLOOD SPECIMEN Ordering Facility: [facility] Address: [address] [place] [address] Performed By: #### 2 4323-8 #### [facility] CLIA [id number] [address] [place] [address] [place] Creatinine [Mass/Vol] 0.66 mg/dL Normal 0.58-0.96 [facility] Comment on above: Order Comment: Speci men Type: BLOOD SPECIMEN Ordering Facility: [facility] Address: [address] [place] [address] Performed By: #### 2 4323-8 #### [facility] CLIA [id number] [address] [place] [address] OF [facility] ESTIMATED GLOMERULAR FILTRATION RATE 104 mL/min/1.73m??? Normal >=60 [facility] Comment on above: Order Comment: Speci men Type: BLOOD SPECIMEN Ordering Facility: [facility] Address: [address] [place] [address] Result Comment: Domonique mated Glomerular Filtration Rate (eGFR) is calculated using the 2020 CKD-EPI creatinine equation. This equation utilizes serum creatinine, sex, and age as parameters. The creatinine assay has traceable calibration to isotope dilution-mass spectrometry. Refer to KDIGO guidelines for clinical interpretation. In patients with unstable renal function, e.g. those with acute kidney injury, the eGFR may not accurately reflect actual GFR. Performed By: #### 2 4323-8 #### [facility] CLIA [id number] [facility] [place] [address] [place] Glucose [Mass/Vol] 91 mg/dL Normal 74-99 [facility] Comment on above: Order Comment: Jesus bundy Type: BLOOD SPECIMEN Ordering Facility: [facility] Address: [address] [place] [address] Result Comment: The [place] [employer] (ADA) provides guidance for cutoff values for fasting glucose and random glucose. The ADA defines fasting as no caloric intake for at least 8 hours. Fasting plasma glucose results between 100 to 125 mg/dL indicate increased risk for diabetes (prediabetes). Fasting plasma glucose results greater than or equal to 126 mg/dL meet the criteria for diagnosis of diabetes. In the absence of unequivocal hyperglycemia, results should be confirmed by repeat testing. In a patient with classic symptoms of hyperglycemia or hyperglycemic crisis, random plasma glucose results greater than or equal to 200 mg/dL meet the criteria for diagnosis of diabetes. Reference: Standards of Medical Care in Diabetes 2016, [place] [employer]. Diabetes Care. 2016.39(Suppl 1). Performed By: #### 2 4323-8 #### [facility] CLIA [id number] [address] [place] [address] [place] Potassium [Moles/Vol] 4.8 mmol/L Normal 3.7-5.1 [facility] Comment on above: Order Comment: Leei men Type: BLOOD SPECIMEN Ordering Facility: [facility] Address: [address] [place] [address] Performed By: #### 2 4323-8 #### [facility] CLIA [id number] [address] [place] [address] [place] Protein [Mass/Vol] 7.3 g/dL Normal 6.3-8.0 [facility] Comment on above: Order Comment: Jesus bundy Type: BLOOD SPECIMEN Ordering Facility: [facility] Address: [address] [place] [address] Performed By: #### 2 4323-8 #### [facility] CLIA [id number] [address] [place] [address] [place] Sodium [Moles/Vol] 134 mmol/L Low 136-144 [facility] Comment on above: Order Comment: Speci men Type: BLOOD SPECIMEN Ordering Facility: [facility] Address: [address] [place] [address] Performed By: #### 2 4323-8 #### [facility] CLIA [id number] [address] [place] [address] [place] Urea nitrogen [Mass/Vol] 8 mg/dL Normal 7- [facility] Comment on above: Order Comment: Speci men Type: BLOOD SPECIMEN Ordering Facility: [facility] Address: [address] [place] [address] Performed By: #### 2 4323-8 #### [facility] CLIA [id number] [address] [place] [address] [place] Ferritin SerPl-mCncon 2021 Ferritin [Mass/Vol] 176.0 ng/mL Normal 14.7-205.1 [facility] Comment on above: Order Comment: Speci men Type: BLOOD SPECIMEN Ordering Facility: [facility] Address: [address] [place] [address] Performed By: #### 2 276-4, 49914-8 #### [facility] CLIA [id number] [address] [place] [address] [place] HFE (HEMOCHROMATOSIS)on 07-10 INTERPRETATION (HEMDNA) Normal [facility] Comment on above: Order Comment: Speci men Type: BLOOD SPECIMEN Ordering Facility: [facility] Address: [address] [place] [address] Result Comment: HFE (Hemochromatosis) Laboratory Accession Number: [id number] Result: C282Y: LOLA H63D: WT S65C: WT Interpretation: 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 This genotype is consistent with a diagnosis of hereditary hemochromatosis. Approximately 80-90% of individuals clinically affected with hereditary hemochromatosis of [place] origin are homozygous for the C282Y variant. Family members may be at increased risk for hereditary hemochromatosis. Penetrance of the disease varies with age, sex, and clinical history. The sample is negative for the H63D and S65C variants. Genetic consultation and counseling of at risk family members regarding this laboratory testing may be considered as clinically appropriate. Methodology: Patient DNA is evaluated for C282Y (c.845G>A, p.Nsc199Ilb, NM_000410.3), H63D (c.187C>G, p.Izo21Wbd, NM_000410.3) and S65C variant (c.193A>T, p.Omr57Uid, NM_000410.3) missense variants in the HFE gene (NM_000410.3, GRCh37(hg19)) by multiplex polymerase chain reaction (PCR) followed by melting curve analysis. Disclaimer: This test was developed and its performance characteristics determined by [facility] [place] ([facility]). It has not been cleared or approved by the FDA. [facility] is regulated under CLIA as certified to perform high- complexity testing. This test is used for clinical purposes. It should not be regarded as investigational or for research. Testing and interpretation performed at [facility], [address] [place] [address]. CLIA Number: [id number] As reviewed by Joshua Mendoza, PhD, FAC Performed By: #### H ROSALIE #### [facility] CLIA [id number] [address] [place] [address] [place] Iron and Iron binding capaci ty panelon 07-29-2022 Iron [Mass/Vol] 149 ug/dL Normal 41-186 [facility] Comment on above: Order Comment: Speci men Type: BLOOD SPECIMEN Ordering Facility: [facility] Address: [address] [place] [address] Performed By: #### 2 276-4, 46208-8 #### [facility] CLIA [id number] [address] [place] [address] [place] Iron binding capacity [Mass/Vol] 273 ug/dL Normal 232-386 [facility] Comment on above: Order Comment: Speci men Type: BLOOD SPECIMEN Ordering Facility: [facility] Address: [address] [place] [address] Performed By: #### 2 276-4, 94734-0 #### [facility] CLIA [id number] [address] [place] [address] [place] Iron/TIBC [Molar ratio] 54.6 % Normal 15.0-57.0 [facility] Comment on above: Order Comment: Speci men Type: BLOOD SPECIMEN Ordering Facility: [facility] Address: [address] [place] [address] Performed By: #### 2 276-4, 73304-3 #### [facility] CLIA [id number] [address] [place] [address] [place] UA RANDOM W/MICROSCOPICon BACTERIA NONE SEEN Normal NONE SEEN [facility] Comment on above: Performed By: #### F T4, VITAD, FETIBC, FERR #### [facility] [address] [place] [address] Dr. Cecilio Gale Bilirubin Ql (U) Negative Normal NEGATIVE [facility] Comment on above: Performed By: #### F T4, VITAD, FETIBC, FERR #### [facility] [address] [place] [address] Dr. Cecilio Gale CAST NONE SEEN Normal NONE SEEN [facility] Comment on above: Performed By: #### F T4, VITAD, FETIBC, FERR #### [facility] [address] [place] [address] Dr. Cecilio Gale Clarity (U) CLEAR Normal CLEAR [facility] Comment on above: Performed By: #### F T4, VITAD, FETIBC, FERR #### [facility] [address] [place] [address] Dr. Cecilio Gale Color (U) LT. YELLOW Normal YELLOW [facility] Comment on above: Performed By: #### F T4, VITAD, FETIBC, FERR #### [facility] [address] [place] [address] Dr. Cecilio Gale Crystals LM Nom (Urine sed) NONE SEEN Normal NONE SEEN [facility] Comment on above: Performed By: #### F T4, VITAD, FETIBC, FERR #### [facility] [address] [place] [address] Dr. Cecilio Gale Epithelial cells LM Ql (Urine sed) FEW Abnormal NONE SEEN /RARE [facility] Comment on above: Performed By: #### F T4, VITAD, FETIBC, FERR #### [facility] [address] [place] [address] Dr. Cecilio Gale Glucose Ql (U) Negative Normal NEGATIVE [facility] Comment on above: Performed By: #### F T4, VITAD, FETIBC, FERR #### [facility] [address] [place] [address] Dr. Cecilio Gale Hemoglobin Ql (U) Negative Normal NEGATIVE [facility] Comment on above: Performed By: #### F T4, VITAD, FETIBC, FERR #### [facility] [address] [place] [address] Dr. Cecilio Gale Ketones Ql (U) Negative Normal NEGATIVE [facility] Comment on above: Performed By: #### F T4, VITAD, FETIBC, FERR #### [facility] [address] [place] [address] Dr. Cecilio Gale LEUKOCYTES Negative Normal NEGATIVE [facility] Comment on above: Performed By: #### F T4, VITAD, FETIBC, FERR #### [facility] [facility] [address] [place] [address] Dr. Cecilio Gale MUCOUS NONE SEEN Normal NONE SEEN [facility] Comment on above: Performed By: #### F T4, VITAD, FETIBC, FERR #### [facility] [address] [address] [address] Cecilio Gale Nitrite Ql (U) Negative Normal NEGATIVE [facility] Comment on above: Performed By: #### F T4, VITAD, FETIBC, FERR #### [facility] [address] [address] [address] Cecilio Gale pH (U) 7.0 [pH] Normal 5-9 [facility] Comment on above: Performed By: #### F T4, VITAD, FETIBC, FERR #### [facility] [address] [place] [address] Dr. Cecilio Gale RBC NONE SEEN Abnormal 0-2 [facility] Comment on above: Performed By: #### F T4, VITAD, FETIBC, FERR #### [facility] [address] [place] [address] Dr. Cecilio Gale SPEC GRAVITY 1.010 Normal 1.005-<=1.025 [facility] Comment on above: Performed By: #### F T4, VITAD, FETIBC, FERR #### [facility] [address] [place] [address] Dr. Cecilio Gale UA PROTEIN Negative Normal NEGATIVE/ TRACE [facility] Comment on above: Performed By: #### F T4, VITAD, FETIBC, FERR #### [facility] [address] [address] [address] Cecilio Gale Urobilinogen Qn (U) 0.2 {Anita'U}/dL Normal 0.2 - 1. 0 [facility] Comment on above: Performed By: #### F T4, VITAD, FETIBC, FERR #### [facility] [address] [place] [address] Dr. Cecilio Gale WBC NONE SEEN Normal NONE SEEN [facility] Comment on above: Performed By: #### F T4, VITAD, FETIBC, FERR #### [facility] [address] [place] [address] Dr. Cecilio Gale Physician Referralon 022 Physician Referral [id number] [facility] ALKP ISOENZYMESon 07-10-2022 ALP [Catalytic activity/Vol] 159 U/L Critically high 44-121 [facility] Comment on above: Performed By: #### A LKPISO #### [facility] [address] [address] [address] Cecilio Gale Bone Fraction: 36 % Normal 14-68 [facility] Comment on above: Performed By: #### A LKPISO #### [facility] [address] [address] [address] Cecilio Gale Intestinal Frac.: 4 % Normal 0-18 [facility] Comment on above: Performed By: #### A LKPISO #### [facility] [address] [address] [address] Cecilio Gale Liver Fraction: 60 % Normal 18-85 [facility] Comment on above: Performed By: #### A LKPISO #### [facility] [address] [address] [address] Cecilio Gale VIT D 25-OH [facility] 2021 Vitamin D, 25-Hydroxy 50.4 ng/mL Normal 30.0-100.0 [facility] Comment on above: Result Comment: Millie min D deficiency has been defined by the [employer] and an Endocrine Society practice guideline as a level of serum 25-OH vitamin D less than 20 ng/mL (1,2). The Endocrine Society went on to further define vitamin D insufficiency as a level between 21 and 29 ng/mL (2). 1. IOM ([employer]). 2010. Dietary reference intakes for calcium and D. [place]: The National Academies Press. 2. Sujatha MF, Vaishali NC, Larisa AZAR, et al. Evaluation, treatment, and prevention of vitamin D deficiency: an Endocrine Society clinical practice guideline. JCEM. 2010; 96(7):1911-30. Performed By: #### F T4, VITAD, FETIBC, FERR #### [facility] [address] [place] [address] Dr. Cecilio Gale CBC AUTO DIFFon 07-08-2022 BASO # 0.0 103/ul Normal 0.0-0.1 [facility] Comment on above: Performed By: #### C BC #### [facility] [address] [place] [address] Dr. Cecilio Gale Basophils/100 WBC (Bld) 0.6 % Normal 0.2-2.0 [facility] Comment on above: Performed By: #### C BC #### [facility] [address] [place] [address] Dr. Cecilio Gale EO # 0.0 103/ul Normal 0.0-0.7 [facility] Comment on above: Performed By: #### C BC #### [facility] [address] [place] [address] Dr. Cecilio Gale Eosinophils/100 WBC (Bld) 0.0 % Critically low 0.9-7.0 [facility] Comment on above: Performed By: #### C BC #### [facility] [address] [place] [address] Dr. Cecilio Gale Erythrocyte distribution width (RBC) [Ratio] 11.8 % Normal 11.0-15.0 [facility] Comment on above: Performed By: #### C BC #### [facility] [address] [place] [address] Dr. Cecilio Gale Hematocrit (Bld) [Volume fraction] 40.2 % Normal 36.0-48.0 [facility] Comment on above: Performed By: #### C BC #### [facility] [address] [place] [address] Dr. Cecilio Gale Hemoglobin (Bld) [Mass/Vol] 14.5 g/dL Normal 12.0-16.0 [facility] Comment on above: Performed By: #### C BC #### [facility] [address] [place] [address] Dr. Cecilio Gale IG # 0.01 10e3/ul Normal 0.00-0.03 [facility] Comment on above: Performed By: #### C BC #### [facility] [address] [place] [address] Dr. Cecilio Gale IG % 0.2 % Normal 0.0-0.5 [facility] Comment on above: Performed By: #### C BC #### [facility] [address] [place] [address] Dr. Cecilio Gale LYMPH # 2.1 103/ul Normal 1.2-3.8 [facility] Comment on above: Performed By: #### C BC #### [facility] [address] [place] [address] Dr. Cecilio Gale Lymphocytes/100 WBC (Bld) 45.9 % Normal 20.5-60.0 [facility] Comment on above: Performed By: #### C BC #### [facility] [address] [place] [address] Dr. Cecilio Gale MANUAL DIFF REQ NO Normal [facility] Comment on above: Performed By: #### C BC #### [facility] [address] [place] [address] Dr. Cecilio Gale MCH (RBC) [Entitic mass] 33.0 pg Normal 26.7-34.0 [facility] Comment on above: Performed By: #### C BC #### [facility] [address] [place] [address] Dr. Cecilio Gale MCHC (RBC) [Mass/Vol] 36.1 g/dL Critically high 29.9-35.2 [facility] Comment on above: Performed By: #### C BC #### [facility] [address] [place] [address] Dr. Cecilio Gale MCV (RBC) [Entitic vol] 91.6 fL Normal 81.0-99.0 [facility] Comment on above: Performed By: #### C BC #### [facility] [address] [place] [address] Dr. Cecilio Gale MONO # 0.4 103/ul Normal 0.3-0.8 [facility] Comment on above: Performed By: #### C BC #### [facility] [address] [place] [address] Dr. Cecilio Gale Monocytes/100 WBC (Bld) 8.9 % Normal 1.7-12.0 [facility] Comment on above: Performed By: #### C BC #### [facility] [address] [place] [address] Dr. Cecilio Gale NEUT # 2.1 103/ul Normal 1.4-6.5 [facility] Comment on above: Performed By: #### C BC #### [facility] [address] [place] [address] Dr. Cecilio Gale Neutrophils/100 WBC (Bld) 44.4 % Normal 43.0-75.0 [facility] Comment on above: Performed By: #### C BC #### [facility] [address] [place] [address] Dr. Cecilio Gale Platelet mean volume (Bld) [Entitic vol] 8.4 fL Critically low 9.5-13.5 [facility] Comment on above: Performed By: #### C BC #### [facility] [address] [place] [address] Dr. Cecilio Gale PLT 349 103/ul Normal 150-450 [facility] Comment on above: Performed By: #### C BC #### [facility] [address] [place] [address] Dr. Cecilio Gale RBC 4.39 106/ul Normal 4.20-5.40 [facility] Comment on above: Performed By: #### C BC #### [facility] [address] [place] [address] Dr. Cecilio Gale WBC 4.6 103/ul Normal 4.0-11.0 [facility] Comment on above: Performed By: #### C BC #### [facility] [address] [place] [address] Dr. Cecilio Gale CULTURE URINEon 07-08-2022 CULTURE URINE Culture Observations: MODERATE GROWTH OF MIXED GENITAL CAMERON. NO POTENTIAL PATHOGENS SEEN. Normal [facility] Comment on above: Performed By: #### F T4, VITAD, FETIBC, FERR #### [facility] [address] [place], [place] [id number] Dr. Cecilio Gale FERRITINon 07-08-2022 Ferritin [Mass/Vol] 182.0 ng/mL Normal 8.0-252.0 [facility] Comment on above: Performed By: #### F T4, VITAD, FETIBC, FERR #### [facility] [address] [place] [address] Dr. Cecilio Gale FREE T3on 07-08-2022 FREE T3 2.02 pg/mlL Critically low 2.18-3.98 [facility] Comment on above: Performed By: #### F T4, VITAD, FETIBC, FERR #### [facility] [address] [place] [address] Dr. Cecilio Gale FREE T4on 07-08-2022 Free T4 [Mass/Vol] 0.98 ng/dL Normal 0.76-1.46 [facility] Comment on above: Performed By: #### F T4, VITAD, FETIBC, FERR #### [facility] [address] [place] [address] Dr. Cecilio Gale GLYCOHEMOGLOBIN A1Con 2021 ADA RECOMMENDATION SEE BELOW Normal [facility] Comment on above: Result Comment: ADA RECOMMENDED LIMIT 4.0 - 6.0 ADA THERAPEUTIC TARGET < 7.0 ACTION SUGGESTED > 7.0 Performed By: #### A 1C #### [facility] [address] [place] [address] Dr. Cecilio Gale Glucose [Mass/Vol] 105 mg/dL Normal [facility] Comment on above: Performed By: #### A 1C #### [facility] [address] [place] [address] Dr. Cecilio Gale HbA1c (Bld) [Mass fraction] 5.3 % Normal 4.5-6.2 [facility] Comment on above: Performed By: #### A 1C #### [facility] [address] [place] [address] Dr. Cecilio Gale IRON AND TIBCon 07-08-2022 % SATURATION 79.9 % Normal [facility] Comment on above: Performed By: #### F T4, VITAD, FETIBC, FERR #### [facility] [address] [address] [address] Cecilio Gale Iron [Mass/Vol] 219.0 ug/dL Critically high 50.0-170.0 [facility] Comment on above: Performed By: #### F T4, VITAD, FETIBC, FERR #### [facility] [address] [address] [address] Cecilio Gale TIBC DIRECT 274.0 ug/dL Normal 250.0-450.0 [facility] Comment on above: Performed By: #### F T4, VITAD, FETIBC, FERR #### [facility] [address] [address] [address] Cecilio Gale LIPID PROFILEon 07-08-2022 CHOL-HDL RATIO NORM SEE BELOW Normal [facility] Comment on above: Result Comment: 3.3 - 4.4 LOW RISK 4.4 - 7.1 AVERAGE RISK 7.1 - 11.0 MODERATE RISK >11.0 HIGH RISK Performed By: #### F T4, VITAD, FETIBC, FERR #### [facility] [address] [address] [address] Cecilio Gale Cholesterol [Mass/Vol] 215 mg/dL Critically high <=200 [facility] Comment on above: Performed By: #### F T4, VITAD, FETIBC, FERR #### [facility] [address] [address] [address] Cecilio Gale Cholesterol in HDL [Mass/Vol] 98 mg/dL Critically high 40-60 [facility] Comment on above: Performed By: #### F T4, VITAD, FETIBC, FERR #### [facility] [address] [address] [address] Cecilio Gale Cholesterol in LDL [Mass/Vol] 105.4 mg/dL Normal [facility] Comment on above: Performed By: #### F T4, VITAD, FETIBC, FERR #### [facility] [address] [address] [address] Cecilio Gale Cholesterol.total/Cho lesterol in HDL [Mass ratio] 2.2 {ratio} Normal [facility] Comment on above: Performed By: #### F T4, VITAD, FETIBC, FERR #### [facility] [address] [address] [address] Cecilio Gale HDL NORMAL > or = 60 mg/dl - LOW CARDIOVASCULAR RISK <40 mg/dl - HIGH CARDIOVASCULAR RISK Normal [facility] Comment on above: Performed By: #### F T4, VITAD, FETIBC, FERR #### [facility] [address] [address] [address] Cecilio Gale LDL CALC NORMAL SEE BELOW Normal [facility] Comment on above: Result Comment: <100 mg/dl OPTIMAL 100 - 129 mg/dl NEAR OR ABOVE OPTIMAL 130 - 159 mg/dl BORDERLINE HIGH 160 - 189 mg/dl HIGH >190 mg/dl VERY HIGH Performed By: #### F T4, VITAD, FETIBC, FERR #### [facility] [address] [place] [address] Dr. Cecilio Gale Triglyceride [Mass/Vol] 58 mg/dL Normal <=150 [facility] Comment on above: Performed By: #### F T4, VITAD, FETIBC, FERR #### [facility] [address] [place] [address] Dr. Cecilio Gale VLDL CALC 11.6 mg/dL Normal [facility] Comment on above: Performed By: #### F T4, VITAD, FETIBC, FERR #### [facility] [address] [place] [address] Dr. Cecilio Gale PROF 14(COMP METB)on 022 Albumin [Mass/Vol] 4.0 g/dL Normal 3.4-5.[address] [facility] Comment on above: Performed By: #### F T4, VITAD, FETIBC, FERR #### [facility] [address] [place] [address] Dr. Cecilio Gale Albumin/Globulin [Mass ratio] 1.0 {ratio} Normal [facility] Comment on above: Performed By: #### F T4, VITAD, FETIBC, FERR #### [facility] [address] [place] [address] Dr. Cecilio Gale ALP [Catalytic activity/Vol] 160 U/L Critically high 46-116 [facility] Comment on above: Performed By: #### F T4, VITAD, FETIBC, FERR #### [facility] [address] [place] [address] Dr. Cecilio Gale ALT [Catalytic activity/Vol] 26 U/L Normal 14-59 [facility] Comment on above: Performed By: #### F T4, VITAD, FETIBC, FERR #### [facility] [address] [place] [address] Dr. Cecilio Gale Anion gap [Moles/Vol] 14.1 mmol/L Normal Th [facility] Comment on above: Performed By: #### F T4, VITAD, FETIBC, FERR #### [facility] [address] [place] [address] Dr. Cecilio Gale AST [Catalytic activity/Vol] 19 U/L Normal 15-37 [facility] Comment on above: Performed By: #### F T4, VITAD, FETIBC, FERR #### [facility] [address] [place] [address] Dr. Cecilio Gale Bilirubin [Mass/Vol] 0.5 mg/dL Normal 0.2-1.0 [facility] Comment on above: Performed By: #### F T4, VITAD, FETIBC, FERR #### [facility] [address] [place] [address] Dr. Cecilio Gale Calcium [Mass/Vol] 8.9 mg/dL Normal 8.5-10.[address] [facility] Comment on above: Performed By: #### F T4, VITAD, FETIBC, FERR #### [facility] [address] [place] [address] Dr. Cecilio Gale Chloride [Moles/Vol] 93 mmol/L Critically low 98-107 [facility] Comment on above: Performed By: #### F T4, VITAD, FETIBC, FERR #### [facility] [address] [place] [address] Dr. Cecilio Gale CO2 [Moles/Vol] 25.9 mmol/L Normal 21.0-32.0 [facility] Comment on above: Performed By: #### F T4, VITAD, FETIBC, FERR #### [facility] [address] [place] [address] Dr. Cecilio Gale Creatinine [Mass/Vol] 0.68 mg/dL Normal 0.55-1.02 [facility] Comment on above: Performed By: #### F T4, VITAD, FETIBC, FERR #### [facility] [address] [address] [address] Cecilio Gale EGFR-AF SAUDI ARABIAN >60 Normal >=60 [facility] Comment on above: Performed By: #### F T4, VITAD, FETIBC, FERR #### [facility] [address] [place] [address] Dr. Cecilio Gale EGFR-NON AF SAUDI ARABIAN >60 Normal >=60 [facility] Comment on above: Performed By: #### F T4, VITAD, FETIBC, FERR #### [facility] [address] [place] [address] Dr. Cecilio Gale Globulin (S) [Mass/Vol] 3.9 g/dL Normal [facility] Comment on above: Performed By: #### F T4, VITAD, FETIBC, FERR #### [facility] [address] [place] [address] Dr. Cecilio Gale Glucose [Mass/Vol] 108 mg/dL Critically high 74-106 T [facility] Comment on above: Performed By: #### F T4, VITAD, FETIBC, FERR #### [facility] [address] [place] [address] Dr. Cecilio Gale Potassium [Moles/Vol] 4.0 mmol/L Normal 3.5-5.1 [facility] Comment on above: Performed By: #### F T4, VITAD, FETIBC, FERR #### [facility] [address] [place] [address] Dr. Cecilio Gale Protein [Mass/Vol] 7.9 g/dL Normal 6.4-8.[address] [facility] Comment on above: Performed By: #### F T4, VITAD, FETIBC, FERR #### [facility] [address] [address] [address] Cecilio Gale Sodium [Moles/Vol] 129 mmol/L Critically low 136-145 Th [facility] Comment on above: Performed By: #### F T4, VITAD, FETIBC, FERR #### [facility] [address] [place] [address] Dr. Cecilio Gale Urea nitrogen [Mass/Vol] 6.0 mg/dL Critically low 7.0-18.0 [facility] Comment on above: Performed By: #### F T4, VITAD, FETIBC, FERR #### [facility] [address] [place] [address] Dr. Cecilio Gale Urea nitrogen/Creatinine [Mass ratio] 8.8 mg/mg Normal [facility] Comment on above: Performed By: #### F T4, VITAD, FETIBC, FERR #### [facility] [address] [place] [address] Dr. Cecilio Gale TSHon 07-08-2022 TSH 0.963 uIU/mL Normal 0.358-3.740 [facility] Comment on above: Performed By: #### F T4, VITAD, FETIBC, FERR #### [facility] [address] [place] [address] Dr. Cecilio Gale UA RANDOMon 07-08-2022 Bilirubin Ql (U) Negative Normal NEGATIVE [facility] Comment on above: Performed By: #### F T4, VITAD, FETIBC, FERR #### [facility] [address] [place] [address] Dr. Cecilio Gale Clarity (U) CLEAR Normal CLEAR [facility] Comment on above: Performed By: #### F T4, VITAD, FETIBC, FERR #### [facility] [address] [place] [address] Dr. Cecilio Gale Color (U) LT. YELLOW Normal YELLOW [facility] Comment on above: Performed By: #### F T4, VITAD, FETIBC, FERR #### [facility] [address] [address] [address] Cecilio Gale Glucose Ql (U) Negative Normal NEGATIVE [facility] Comment on above: Performed By: #### F T4, VITAD, FETIBC, FERR #### [facility] [address] [address] [address] Cecilio Gale Hemoglobin Ql (U) TRACE-LYSED Abnormal NEGATIVE [facility] Comment on above: Performed By: #### F T4, VITAD, FETIBC, FERR #### [facility] [address] [address] [address] Cecilio Gale Ketones Ql (U) Negative Normal NEGATIVE [facility] Comment on above: Performed By: #### F T4, VITAD, FETIBC, FERR #### [facility] [address] [place] [address] Dr. Cecilio Gale LEUKOCYTES Negative Normal NEGATIVE [facility] Comment on above: Performed By: #### F T4, VITAD, FETIBC, FERR #### [facility] [address] [address] [address] Cecilio Gale Nitrite Ql (U) Negative Normal NEGATIVE [facility] Comment on above: Performed By: #### F T4, VITAD, FETIBC, FERR #### [facility] [address] [address] [address] Cecilio Gale pH (U) 7.5 [pH] Normal 5-9 [facility] Comment on above: Performed By: #### F T4, VITAD, FETIBC, FERR #### [facility] [address] [address] [address] Cecilio Gale SPEC GRAVITY <=1.005 Abnormal 1.005-<=1.025 [facility] Comment on above: Performed By: #### F T4, VITAD, FETIBC, FERR #### [facility] [address] [place] [address] Dr. Cecilio Gale UA PROTEIN Negative Normal NEGATIVE/ TRACE [facility] Comment on above: Performed By: #### F T4, VITAD, FETIBC, FERR #### [facility] [address] [address] [address] Cecilio Gale Urobilinogen Qn (U) 0.2 {Anita'U}/dL Normal 0.2 - 1. 0 [facility] Comment on above: Performed By: #### F T4, VITAD, FETIBC, FERR #### [facility] [address] [address] [address] Cecilio Gale Vital Signs Date Time Vital Sign Value Performing Clinician Facility 10-27-2023 11:10-0500 Body height 165.1 cm Scotty Ruiz Other [facility] Other 10-27-2023 11:10-0500 Body mass index (BMI) [Ratio] 36.11 kg/m2 Scotty Ruiz Other [facility] Other 10-27-2023 11:10-0500 Body temperature 98.1 [degF] Scotty Ruiz Other [facility] Other 10-27-2023 11:10-0500 Body weight 98.43 kg Scotty Ruiz Other [facility] Other 10-27-2023 11:10-0500 Diastolic blood pressure 78 mm[Hg] Scotty Ruiz Other [facility] Other 10-27-2023 11:10-0500 Respiratory rate 18 /min Scotty Ruiz Other [facility] Other 10-27-2023 11:10-0500 SaO2% (BldA) [Mass fraction] 97 % Scotty Ruiz Other [facility] Other 10-27-2023 11:10-0500 Systolic blood pressure 120 mm[Hg] Scotty Ruiz Other [facility] Other 09-20-2023 09:50-0400 Body height 165.1 cm Scotty Sara Other [facility] Other 07-28-2023 09:50-0400 Body mass index (BMI) [Ratio] 39.1 kg/m2 Scotty Sara Other [facility] Other 07-28-2023 09:50-0400 Body weight 106.6 kg Scotty Ruiz Other [facility] Other 07-28-2023 09:50-0400 Diastolic blood pressure 78 mm[Hg] Scotty Brendanmoon Other [facility] Other 07-28-2023 09:50-0400 Respiratory rate 18 /min Scotty Sara Other [facility] Other 07-28-2023 09:50-0400 SaO2% (BldA) [Mass fraction] 98 % Scotty Ruiz Other [facility] Other 07-28-2023 09:50-0400 Systolic blood pressure 124 mm[Hg] Scotty Brendanmono Other [facility] Other 06-02-2023 13:00-0400 Body height 165.1 cm Rajendra Angulo Other [facility] Other 06-02-2023 13:00-0400 Body mass index (BMI) [Ratio] 42.43 kg/m2 Rajendra Angulo Other [facility] Other 06-02-2023 13:00-0400 Body weight 115.67 kg Rajendra Angulo Other [facility] Other 06-02-2023 13:00-0400 Diastolic blood pressure 78 mm[Hg] Rajendra Kev Other [facility] Other 06-02-2023 13:00-0400 SaO2% (BldA) [Mass fraction] 97 % Roberthannah Landadano Other [facility] Other 06-02-2023 13:00-0400 Systolic blood pressure 119 mm[Hg] Rajendra Kev Other [facility] Other 01-21-2023 11:50-0400 Body height 165.1 cm Scotty Ruiz Other [facility] Other 01-21-2023 11:50-0400 Body mass index (BMI) [Ratio] 45.92 kg/m2 Scotty Ruiz Other [facility] Other 01-21-2023 11:50-0400 Body temperature 97.7 [degF] Scotty Ruiz Other [facility] Other 01-21-2023 11:50-0400 Body weight 125.19 kg Scotty Ruiz Other [facility] Other 01-21-2023 11:50-0400 Diastolic blood pressure 86 mm[Hg] Scotty Ruiz Other [facility] Other 01-21-2023 11:50-0400 Respiratory rate 18 /min Scotty Ruiz Other [facility] Other 01-21-2023 11:50-0400 SaO2% (BldA) [Mass fraction] 97 % Scotty Ruiz Other [facility] Other 01-21-2023 11:50-0400 Systolic blood pressure 128 mm[Hg] Scotty Ruiz Other [facility] [facility] Other 08-04-2022 15:21-0400 Blood Pressure Location Kerry JONES [facility] [place] 08-04-2022 15:21-0400 Diastolic blood pressure 80 mm[Hg] Kerry EPPERSONL [facility] [place] 08-04-2022 15:21-0400 Heart rate 72 /min Kerry EPPERSONL [facility] [place] 08-04-2022 15:21-0400 Respiratory rate 16 /min Kerry EPPERSONL [facility] [place] 08-04-2022 15:21-0400 Systolic blood pressure 118 mm[Hg] Kerry EPPERSONL [facility] [place] 07-29-2022 11:12-0400 Body height 165.1 cm Ricci Garcia MD Work Phone: [facility] 07-29-2022 11:12-0400 Body temperature 97.11 [degF] Ricci Garcia MD Work Phone: [facility] 07-29-2022 11:12-0400 Body weight 122.97 kg Ricci Garcia MD Work Phone: [facility] 07-29-2022 11:12-0400 Diastolic blood pressure 89 mm[Hg] Ricci Garcia MD Work Phone: [facility] 07-29-2022 11:12-0400 Heart rate 83 /min Ricci Garcia MD Work Phone: [facility] 07-29-2022 11:12-0400 Respiratory rate 16 /min Ricci Garcia MD Work Phone: [facility] 07-29-2022 11:12-0400 SaO2% (BldA) [Mass fraction] 98 % Ricci Garcia MD Work Phone: [facility] 07-29-2022 11:12-0400 Systolic blood pressure 152 mm[Hg] Ricci Garcia MD Work Phone: [facility] 07-14-2022 14:20-0400 Body height 165.1 cm Scotty Ruiz Other [facility] Other 07-14-2022 14:20-0400 Body mass index (BMI) [Ratio] 45.26 kg/m2 Scotty Ruiz Other [facility] Other 07-14-2022 14:20-0400 Body temperature 97.6 [degF] Scotty Ruiz Other [facility] Other 07-14-2022 14:20-0400 Body weight 123.38 kg Scotty Ruiz Other [facility] Other 07-14-2022 14:20-0400 Diastolic blood pressure 82 mm[Hg] Scotty Ruiz Other [facility] Other 07-14-2022 14:20-0400 SaO2% (BldA) [Mass fraction] 97 % Scotty Ruiz Other [facility] Other 07-14-2022 14:20-0400 Systolic blood pressure 132 mm[Hg] Scotty Ruiz Other [facility] Other 06-03-2022 14:00-0400 Body height 165.1 cm Rajendra Angulo Other [facility] Other 06-03-2022 14:00-0400 Body mass index (BMI) [Ratio] 45.26 kg/m2 Rajendra Angulo Other [facility] Other 06-03-2022 14:00-0400 Body temperature 97.3 [degF] Roberthannah Landadano Other [facility] Other 06-03-2022 14:00-0400 Body weight 123.38 kg Ashishkati LandaKev Other [facility] Other 06-03-2022 14:00-0400 Diastolic blood pressure 75 mm[Hg] Rajendra Kev Other [facility] Other 06-03-2022 14:00-0400 SaO2% (BldA) [Mass fraction] 10 % Rajendra Kev Other [facility] Other 06-03-2022 14:00-0400 Systolic blood pressure 113 mm[Hg] Rajendra Kev Other [facility] Other Encounters Encounter Date Encounter Type Care Provider Facility Start: 10-27-2023 End: 10-27-2023 ambulatory Scotty Ruiz Other [facility] Other Start: 10-27-2023 Office outpatient vi sit 25 minutes Scotty Ruiz [facility] Start: 08-04-2023 End: 08-04-2023 ambulatory Scotty Ruiz Other [facility] Other Start: 08-04-2023 Telephone encounter Scotty Ruiz [facility] Start: 07-28-2023 End: 07-28-2023 ambulatory Scotty Ruiz Other [facility] Other Start: 07-28-2023 Office outpatient vi sit 25 minutes Scotty Ruiz [facility] Start: 07-22-2023 End: 07-22-2023 ambulatory Scotty Ruiz Other [facility] Other Start: 07-22-2023 Telephone encounter Scotty Ruiz [facility] [place] Start: 06-02-2023 Office outpatient vi sit 10 minutes Rajendra Angulo [facility] Start: 06-02-2023 End: 06-02-2023 ambulatory DO Scotty Ruiz Work Phone: [facility] [employer] Other Start: 06-02-2023 End: 06-02-2023 Patient encounter procedure DO Scotty Ruiz Work Phone: [facility] Work Phone: Start: 02-09-2023 End: 02-09-2023 ambulatory Scotty Ruiz Other [facility] Other Start: 02-09-2023 Telephone encounter Scotty Ruiz [facility] [place] Start: 01-21-2023 End: 01-21-2023 ambulatory Scotty Ruiz Other [facility] Other Start: 01-21-2023 Encounter for other preprocedural examination Scotty Ruiz [facility] [place] Start: 01-21-2023 Office outpatient vi sit 25 minutes Scotty Ruiz [facility] [place] Start: 01-11-2023 End: 01-12-[address] SCOTTY RUIZ Facility:[facility] Start: 11-30-2022 End: 11-30-2022 ambulatory Scotty Ruiz Other [facility] Other Start: 11-30-2022 Telephone encounter Scotty Ruiz [facility] [place] Start: 10-08-2022 End: 10-09-[address] DOCTOR RANDALL Facility:[facility] Start: 09-22-2022 End: 09-23-2022 ambulatory Kerry JONES Facility: [place] Start: 09-22-2022 End: 09-22-2022 Patient encounter procedure Kerry JONES [facility] [place] Start: 09-17-2022 ambulatory Scotty Ortegai lity:SARA [facility]ulesLandy Start: 09-09-2022 End: 09-10-2022 ambulatory eKrry JONES Facility::[id number] Start: 2022 Telephone encounter Janie [facility] Start: 2022 End: 09-08-[address] KERRY JONES . 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); Disorder of iron metabolism; Family history of hemochromatosis Start: 08-04-2022 End: 08-05-2022 ambulatory Scotty Ruiz Facility: [facility] Start: 08-04-2022 End: 08-04-2022 Patient encounter procedure Kerry JONES [facility] Start: 07-29-2022 End: 07-29-2022 Visit (SP) Office Ricci Garcia MD Work Phone: Hematology/Oncology Comment on above: Family history of he mochromatosis (Primary Dx); Disorder of iron metabolism; Hemochromatosis, unspecified hemochromatosis type Start: 07-28-2022 End: 07-28-2022 ambulatory Mahendra Romo Facility:[facility] Start: 07-28-2022 End: 07-28-2022 Patient encounter procedure DO Scotty Ruiz Work Phone: [facility] Start: 07-21-2022 Telephone encounter Scotty Ruiz [facility] [place] Start: 07-21-2022 End: 07-22-[address] SCOTTY RUIZ [facility] [employer] Other Start: 07-14-2022 End: 07-14-2022 ambulatory Scotty Ruiz [facility] [employer] Other Start: 07-14-2022 Office outpatient vi sit 25 minutes [facility] Start: 07-08-2022 End: 07-09-[address] SCOTTY RUIZ Facility: Start: 07-07-2022 Telephone encounter [facility] Start: 07-07-2022 End: 07-09-2022 ambulatory DO INTERIANO [facility] [employer] Other Start: 06-03-2022 End: 06-03-2022 ambulatory Rajendra Angulo Other [facility] [employer] Other Start: 06-03-2022 Office outpatient vi sit 10 minutes Rajendra Angulo [facility] Start: 06-03-2022 End: 06-03-2022 Patient encounter procedure DO Scotty Ruiz Work Phone: [facility] Start: 09-01-2021 Telephone encounter Scotty Ruiz [facility] Procedures Date Procedure Procedure Detail Performing Clinician Start: 09-09-2022 Colonoscopy Kerry PRESLEY Start: 07-29-2022 Blood count complete auto&auto difrntl wbc Ricci Garcia MD Work Phone: Closed reduction of fracture of ankle Kerry JONES Craniotomy Kerry JONES Ligation of fallopian tube Rebecca celio JONES Vaginal hysterectomy Kerry JONES Plan of Treatment Date Care Activity Detail Author Start: 08-21-2025 DIABETES SCREEN [facility] Start: 07-29-2025 DIABETES SCREEN [facility] Start: 07-29-2022 End: 09-28-2022 HFE gene targeted mutation analysis in Blood or Tissue by Molecular genetics method [facility] Work Phone: Comment on above: Expected: 07/29/2022 , Expires: 09/28/2022 Start: 07-09-2022 Influenza vaccination INFLUENZA (#1) [facility] Start: 04-14-2022 COVID-19 VACCINE (5 - Booster for Pfizer series) COVID-19 VACCINE (5 - Booster for Pfizer series) [facility] Start: 11-08-2021 DEPRESSION ASSESSMENT DEPRESSION ASS ESSMENT [facility] Start: 2011 COLOGUARD (FIT-DNA) COLOGUARD (FIT-D NA) [facility] Start: 2011 Colonoscopy COLONOSCOPY [facility] Start: 2011 COLORECTAL CANCER SCREENING COLORECTAL CANCER SCREENING [facility] Start: [address] [facility] Start: 2011 FECAL OCCULT BLOOD FECAL OCCULT BLOO D [facility] Start: 2011 LIPID SCREEN LIPID SCREEN [facility] Start: 2011 SIGMOIDOSCOPY SIGMOIDOSCOPY [facility] Start: 2006 Mammography MAMMOGRAM [facility] Start: 1996 HPV TESTING HPV TESTING [facility] Start: 1987 PAP TESTING PAP TESTING [facility] Start: 1985 Urine microalbumin profile DTAP,TDAP,TD (1 - Tdap) [facility] Start: 1984 HEPATITIS C SCREENING HEPATITIS C SC REENING [facility] Start: 1984 HIV SCREENING HIV SCREENING [facility] Start: 1978 Adult depression screening assessment DEPRESSION SCREENING [facility] Start: 1966 HEPATITIS B (1 of 3 - 3-dose series) HEPATITIS B (1 of 3 - 3-dose series) [facility] End: 08-12-2023 CBC W Auto Differential panel - Blood CBC + DIFF Lab Routine 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) Every 3 months for 4 Occurrences starting 08/12/2022 until 08/12/2023 [facility] Work Phone: Comment on above: Every 3 months for 4 Occurrences starting 08/12/2022 until 08/12/2023 End: 08-12-2023 Comprehensive metabolic 2000 panel - Serum or Plasma COMP METABOLIC PANEL Lab Routine 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) Every 3 months for 4 Occurrences starting 08/12/2022 until 08/12/2023 [facility] Work Phone: Comment on above: Every 3 months for 4 Occurrences starting 08/12/2022 until 08/12/2023 End: 08-12-2023 Ferritin [Mass/volume] in Serum or Plasma FERRITIN BLD Lab Routine 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) Every 3 months for 4 Occurrences starting 08/12/2022 until 08/12/2023 [facility] Work Phone: Comment on above: Every 3 months for 4 Occurrences starting 08/12/2022 until 08/12/2023 End: 08-12-2023 Iron and Iron binding capacity panel - Serum or Plasma IRON + TIBC Lab Routine 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) Every 3 months for 4 Occurrences starting 08/12/2022 until 08/12/2023 [facility] Work Phone: Comment on above: Every 3 months for 4 Occurrences starting 08/12/2022 until 08/12/2023 [facility] Immunizations Immunization Date Immunization Notes Care Provider [facility] 08-18-2023 COVID-19 Vaccine Moderna - Documentation Purposes Only Scotty Ruiz Other [facility] Other 08-18-2023 Flu Shot - Documentation Purposes Only Scotty Ruiz Other [facility] Other 10-15-2022 influenza, seasonal, injectable Scotty Ruiz Other [facility] Other 02-17-2022 COVID-19 Vaccine Moderna - Documentation Purposes Only Rajendra Angulo Other [facility] Other 10-11-2021 COVID-19 Vaccine Pfizer - Documentation Purposes Only Robertsethkati Angulo Other [facility] [employer] Other 08-05-2021 influenza, seasonal, injectable Scotty Ruiz Other [facility] Other 08-05-2021 influenza, injectable, quadrivalent, preservative free Ricci Garcia MD Work Phone: [facility] 02-07-2021 COVID-19 Vaccine Pfizer - Documentation Purposes Only Scotty Sara Other [facility] Comment on above: Reason for Medicatio n: Prophylaxis 01-17-2021 COVID-19 Vaccine Pfizer - Documentation Purposes Only Scotty Ruiz Other [facility] Comment on above: Reason for Medicatio n: Prophylaxis 10-04-2020 zoster vaccine recombinant Scotty Brendanmono Other [facility] 08-05-2020 zoster vaccine recombinant Scotty Ruiz Other [facility] 08-05-2020 influenza, seasonal, injectable Scotty Ruiz Other [facility] [employer] Other 08-05-2020 influenza, injectable, quadrivalent, preservative free Ricci Garcia MD Work Phone: [facility] 10-17-2019 influenza, seasonal, injectable Scotty Ruiz Other [facility] Other 10-17-2019 influenza, injectable, quadrivalent, contains preservative Ricci Garcia MD Work Phone: [facility] 07-23-2018 influenza, injectable, quadrivalent, preservative free Ricci Garcia MD Work Phone: [facility] 07-23-2018 influenza, seasonal, injectable Scotty Ruiz Other [facility] Other NEGATED: Highlighted row has not occurred!09-27-2022 influenza virus vaccine, unspecified formulation Kerry EPPERSONL [facility] [place] Payers Date Payer Category Payer Self-pay [id number] 2019 Medicare HUMANA MEDICARE HU[employer]NA MEDICARE PPO [id number] 2019-Present [phone] [address] [place] [address] PPO [id number] 1966 Unknown [id number] 1966 Unknown [id number] 1966 Unknown [id number] 1966 Unknown [id number] 1966 Unknown [id number] 1966 Unknown [id number] 1966 Unknown [id number] [id number] 1966 Unknown [id number] [id number] 1966 Unknown [id number] [id number] 1966 Unknown [id number] [id number] 1966 Unknown [id number] 1958 Medicare [id number] [id number]. [id number] Unknown MMO [id number] Unknown Regular Insurance [id number] Unknown [employer] [id number] Unknown [id number] Unknown [id number] Unknown [id number] Social History Date Type Detail Facility Unknown if ever smoked [facility] [employer] Other Sex Assigned At [employer] [facility] [employer] Other Start: 1965 Sex Assigned At Female F [facility] Start: 07-23-2022 End: 08-04-2022 Tobacco smoking status NHIS Never smoked tobacco [facility] History of tobacco use Passive smoker [facility] Start: 07-23-2022 Tobacco use and exposure Smokeless tobacco non-user [facility] Start: 07-29-2022 Alcohol intake 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 (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) [facility] Start: 1965 Sex Assigned At Not on file [facility] Start: 07-19-2022 End: 08-21-2022 Exposure to SARS-CoV-2 (event) Not sure [facility] Tobacco smoking status Never [facility] [place] Functional Status Date Assessment Result Facility 08-04-2022 Functional Status N/A [facility] [place] Clinical Notes 09-01-2021 to 10-27-2023 Note Date & Type Note Facility 10-27-2023 Evaluation note Encounter Date Diagnosis Assessment Notes Oct, Hypothyroidism (ICD-10 - E03.9) She voices that since her thyroid dose was raised she feels the same. She is not too tired. She did not have her thyroid level drawn because her insurance only pays for this every six months. Symptoms of being over replaced were reviewed. If she has any of these symptoms she should let me know. Oct, Vitamin D deficiency (ICD-10 - E55.9) For now continue with above medications daily as directed. Oct, Elevated alkaline phosphatase level (ICD-10 - R74.8) Her alk phos level is elevated, but most likely combination of factors including post-bariatric surgery, gallbladder dz, and vitamin D deficiency Oct, Gallstone (ICD-10 - K80.20) Continue with above medication daily as directed. Oct, Hypokalemia (ICD-10 - E87.6) She is taking potassium every morning. I recommend that she continue with what she is doing because it is working well. Oct, Hyperlipidemia (ICD-10 - E78.5) Oct, Hyperglycemia (ICD-10 - R73.9) Oct, Other skilled nursing (current) drug therapy (ICD-10 - Z79.899) Oct, Weight loss (ICD-10 - R63.4) Oct, Hemochromatosis (ICD-10 - E83.119) She has not been taking iron since last seen. She is not anemic at this time. Her HGB is 13.8. Her iorn is 109. Ferritin is 186. % saturation is 40.7. Oct, Epilepsy (ICD-10 - G40.909) Continue to follow with specialist as directed. She is scheduled for an EEG with Dr. Aguilar on 10/29/23. Oct, Hyponatremia (ICD-10 - E87.1) Her sodium level was 131. [facility] Other 09-20-2023 Evaluation note* Encounter Date Diagnosis Assessment Notes Treatment Notes Treatment Clinical Notes Jul, Hypothyroidism (ICD-10 - E03.9) Discussed thyroid results with patient today. TSH is 3.508. Free T3 is 1.86. Free T4 is 0.75. At this time I would like to increase her dose of Levothyroxine from the 50 MCG to the 75 MCG daily. Guidance is given on how to take the increased dose. I will have her recheck her thyroid studies in three months. Jul, Hyperlipidemia (ICD-10 - E78.5) Discussed cholesterol results with patient today. Total is 192. HDL is 78. LDL is 99. Triglycerides are 79. VLDL is 15.8. I would like her to continue to monitor her intake of carbs and sugars. Stay active. Jul, Vitamin D deficiency (ICD-10 - E55.9) Her Vitamin D level is 80.0. Continue with above medications daily as directed. Jul, Weight loss (ICD-10 - R63.4) Again, she voices that she has lost 52 pounds on her home scale since she had bariatric surgery. I encouraged her to continue with what she is doing as it is working well. Jul, Elevated alkaline phosphatase level (ICD-10 - R74.8) Her alk phos level was 159. Alk phos isoenzyme total was 164. Liver fraction was 69. Bone fraction was 31. Intestine fraction was 0. This is something that we will continue to monitor. Jul, Hypokalemia (ICD-10 - E87.6) She has started eating bananas since she found out that her potassium was low at 3.3. I will have her repeat lab in one week to be sure her potassium has returned to normal. She can call for results. Jul, Hyperglycemia (ICD-1 0 - R73.9) Discussed blood sugar results with patient today. Glucose is 104. HgA1C is normal at 5.4. Jul, Other skilled nursing (current) drug therapy (ICD-10 - Z79.899) Jul, Abnormal urinalysis (ICD-10 - R82.90) Calcium oxalate crystals were noted in her urine. She has never had kidney stones in the past. I did recommend that she stay well hydrated with plenty of water daily. She admits that she has felt like she had a urine infection for the last couple of weeks. She has been drinking cranberry juice to get rid of her symptoms. Her urine was not infected but the sample was junky and I did advised her that she can continue with the juice but drink plenty of water in addition. Jul, Epilepsy (ICD-10 - G40.909) She will see Dr. Aguilar next month and will have lab drawn prior to the appointment. Jul, Nocturia (ICD-10 - R35.1) Jul, Encounter for screening mammogram for breast cancer (ICD-10 - Z12.31) I did provide her with an order for a mammogram to be done. Jul, Status post bariatri c surgery (ICD-10 - Z98.84) She voices that her bariatric surgery went well. On her home scale she has lost 52 pounds since her surgery. She is taking 2 OTC chewable supplements daily that she buys from a nutritional website. Jul, Hemochromatosis (ICD-10 - E83.119) She voices that she is currently taking iron but she told her bariatric surgeon that her iron is usually high. Her iron is 118.0. Ferritin is 312.0. I did recommend that she cut back on her intake of iron and let Dr. Collins/his group know and she voices understanding. Jul, Gallstone (ICD-10 - K80.20) She voices that they were not able to reach her gallbladder to remove this during her bariatric surgery. She is still taking above medication. Jul, Other Her sodium leve l was low at 131, likely due to her drinking plenty of water. Will repeat the lab in one week to be sure this level has not gone down further. [facility] Other 07-26-2023 Evaluation note* Encounter Date Diagnosis Assessment Notes Treatment Notes Treatment Clinical Notes May, LORENA (obstructive sleep apnea) (ICD-10 - G47.33) [facility] Other 03-16-2023 Evaluation note* Encounter Date Diagnosis Assessment Notes Treatment Notes Treatment Clinical Notes Jan, Hypothyroidism (ICD-10 - E03.9) Discussed thyroid results with patient today. TSH is 1.685. Free T3 is 2.03. Free T4 is 0.82. At this time she is to continue with the same dose of Levothyroxine. Jan, Hyperlipidemia (ICD-10 - E78.5) Discussed cholesterol results with patient today. Total is 216. HDL is 96. LDL is 103.0. Triglycerides are 86. VLDL is 17.2. Readings are at goal. Continue watching intake of carbs and sugars. Stay active as tolerated. Jan, Vitamin D deficiency (ICD-10 - E55.9) Her Vitamin D level is 60.7. Jan, Hemochromatosis (ICD-10 - E83.119) She voices that she did not see the specialist after seen here in the fall (2021) she cancelled that appointment. Her Iron was 121. Ferritin was 132.0. Jan, Other skilled nursing (current) drug therapy (ICD-10 - Z79.899) Jan, Epilepsy (ICD-10 - G40.909) She does continue to follow with Dr. Aguilar and saw her earlier this week (01-18-23). She voices that she saw a vascular doctor a few years ago for an anuerysm in her brain but no one acted concerned, Dr. Aguilar is currently trying to get information from that facility but has not been able to get records from them. Mikey does not recall the doctors name. Dr. Aguilar did an MRI of the brain and she has had further work up done by neurology. Jan, Nocturia (ICD-10 - R35.1) Jan, Elevated alkaline phosphatase level (ICD-10 - R74.8) Her alk phos level was 165. Her alk phos isoenzymes were reviewed. Alk phos was 159. Liver fraction was 59. Bone fraction was 36. Intestinal fraction was 6. Her alk phos level is likely elevated due to her Vitamin D level. Jan, Hyperglycemia (ICD-1 0 - R73.9) Discussed blood sugar results with patient today. Glucose was 112. HgA1C was normal at 5.2. Jan, Weight gain (ICD-10 - R63.5) Jan, Encounter for pre-operative examination (ICD-10 - Z01.818) She denies chest pain, shortness of breath. States she could climb two flights of stairs without becoming short of breath or winded. She is seeing Dr. Collins in [place] in an attempt to have bariatric weight loss surgery done. She has two appointments scheduled for February, if she is approved weight loss surgery would be done in the summer of 2022. I did independently review a CXR and an EKG and an Upper GI from 01-08-23 with her today. She voices that Dr. Aguilar her neurologist does not have a problem with her having weight loss surgery. After evaluation I did sign her physical exam form stating no restrictions for her to have bariatric weight loss surgery. Jan, Other I did independently review an ultrasound of the gallbladder ordered by Dr. Collins on 01-08-23 with her today, she voices that she was told she had gallstones and that her gallbladder could be removed when she had weight loss surgery done. [facility] Other 11-02-2022 NoteOPERATIVE NOTE OPERATION DATE: 09/09/2022 PREOPERATIVE DIAGNOSIS: Colorectal screening. POSTOPERATIVE DIAGNOSIS: 1 cm sigmoid polyp, pedunculated with a broad stalk. PROCEDURE: Colonoscopy to cecum with hot snare polypectomy x1 for sigmoid polyp. SURGEON: Kerry Jones M.D. ANESTHESIA: Monitored anesthesia care. ESTIMATED BLOOD LOSS: Zero. INDICATIONS AND CONSENT: Patient is a 57-year-old female presents for colorectal screening. Indications, risks, benefits, alternatives of proceeding with colonoscopy were explained extensively to the patient, including the risks of bleeding, colon perforation or anesthetic complications. All of her questions were answered. Informed consent was obtained. PROCEDURE: Patient brought to the operating room, placed in the left lateral decubitus position. Monitored anesthesia care was provided. Rectal exam was performed which showed no masses or blood. The scope was inserted into the anal canal. Under direct visualization was advanced. With the aid of abdominal compression, it was advanced to the cecum where cecal markings were clearly identified. There was noted to be a good prep. Upon withdrawal of the scope, mucosal surfaces were carefully examined. There were no mass lesions or inflammatory changes. No significant diverticulosis. There was a redundant colon. Within the sigmoid colon, at approximately 35 cm, there was noted to be a 1 cm pedunculated polyp on a broad base. It was erythematous. It was removed with hot snare with good hemostasis. It was sent off to Pathology. There were no other mass lesions or polyps noted. The scope was retroflexed in the anal canal. There was no significant hemorrhoidal disease. The scope was then withdrawn. Patient tolerated procedure well, was sent to recovery room in good condition. CC: Scotty Ruiz D.O.[facility]10-14-2022 NoteHNO ID: [id number] Author: Olesya Rodriguez RN Service: ? Author Type: Registered Nurse Type: Progress Notes Filed: 08/21/2022 4:39 PM Note Text: Pt was checked in for appointment. HGB of 14.3 qualified her for a phlebotomy. However, pt left the building after getting her blood work drawn. PSS called and LVM for pt to reschedule.[facility] 08-21-2022 History of Present illness Narrative* Olesya Rodriguez RN - 08/21/2022 3:24 PM EDT Pt was checked in for appointment. HGB of 14.3 qualified her for a phlebotomy. However, pt left thebuilding after getting her blood work drawn. PSS called and LVM for pt to reschedule. [facility] Instructions* Patient Instructions* Ricci Garcia MD - 08/12/2022 8:43 PM EDT Arrange for phlebotomy 1 unit for Hgb > 13 next week Labs in 3 months RTC 1 week after labs and schedule for possible phlebotomy after clinician. documented in this encounterW[facility]10-05-2022 NoteHNO ID: [id number] Author: Ricci Garcia MD Service: ? Author Type: Physician Type: Progress Notes Filed: 08/12/2022 8:45 PM Note Text: NAME: Aman Mikey CLINIC NO.: [id number] DATE OF SERVICE: August 12, 2022 Some elements in this clinic note that are critical to medical decision making have been carefully reviewed and included from a prior clinic note dated: July 29, 2022 Referring Provider: Scotty Ruiz Additional Clinicians involved in Mikey Montez's care: VIRTUAL VISIT PROGRESS NOTE This is a virtual visit using Telephone only for 8 minutes . It required patient-provider interaction for the medical decision making as documented below. DIAGNOSIS: Elevated iron HFE homozygous ASSESSMENT: 56 year old woman with prior history of sleep apnea as well as seizures who was found to have intermittently elevated iron levels concerning for HFE. 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 Given that her ferritin is less than 500 but iron sats are elevated, we con conservatively phlebotomize her. She doesn't have evidence of end-organ damage. PLAN: Arrange for phlebotomy 1 unit for Hgb > 13 next week Labs in 3 months RTC 1 week after labs and schedule for possible phlebotomy after clinician. HPI: CASE HISTORY: 07/29/2022 - HFE testing: C282Y: LOLA . H63D: WT . S65C: WT 07/08/2022 - Normal CBC, iron 229, iron sat 79%, ferritin 182 2004 JENNIFER/BSO Updated Visit, August 12, 2022: Telephone only for 8 minutes Called and spoke with Mikey regarding her labs and confirmation of HFE as requested. She agrees to phlebotomy and I will arrange for her to come in. Initial Visit, July 29, 2022: Mikey Montez presents today Hematology and Oncology evaluation. She is a 56 year old female who multiple medical problems including seizure disorder for which she has had cranial surgery for in the past presents with variable iron levels. More recently iron has been elevated but ferritin is normal. She was referred for a concern of iron overload / metabolism issues and so will work her up for HFE. HISTORY REVIEWED (electronic chart updated): PAST MEDICAL HISTORY Diagnosis Date Epilepsy (HCC) 1978 Hemochromatosis 07/2022 PAST SURGICAL HISTORY Procedure Laterality Date COLONSCOPY SCREENING HIGH RISK 2017 LIGATE FALLOPIAN TUBE PAST SURGICAL HISTORY OF 1988 brain surgery TOTAL ABDOM HYSTERECTOMY 2003 FAMILY HISTORY Problem Relation Age of Onset Stroke Mother Diabetes Father Obstructive Sleep Apnea Father Social History Tobacco Use Smoking status: Never Passive exposure: Past Smokeless tobacco: Never Vaping Use Vaping Use: Never used Substance Use Topics Alcohol use: No Drug use: No Current Outpatient Medications Medication Sig calcium phosphate dibas/vit D3 (VITAMIN D, WITH CALCIUM, ORAL) levETIRAcetam (KEPPRA) 1,000 mg tablet OXcarbazepine (TRILEPTAL) 300 mg tablet VITAMIN D 50,000 unit capsule PREMARIN 0.625 mg tablet levothyroxine (SYNTHROID) 25 mcg tablet meloxicam (MOBIC) 15 mg tablet VALACYCLOVIR 500 MG TAB Take one(1) tablet daily. No current facility-administered medications for this visit. ALLERGIES Allergen Reactions Penicillins rash Phenobarbital Mental changes REVIEW OF SYSTEMS: As noted in HPI PHYSICAL EXAMINATION: VIDEO EXAM: (if completed, performed via video enabled technology) No exam performed LABORATORY VALUES: WBC (k/uL) Date Value 07/29/2022 5.81 RBC (m/uL) Date Value 07/29/2022 4.39 Hemoglobin (g/dL) Date Value 07/29/2022 14.5 Hematocrit (%) Date Value 07/29/2022 41.6 MCV (fL) Date Value 07/29/2022 94.8 MCH (pg) Date Value 07/29/2022 33.0 MCHC (g/dL) Date Value 07/29/2022 34.9 RDW-CV (%) Date Value 07/29/2022 12.1 Platelet Count (k/uL) Date Value 07/29/2022 311 MPV (fL) Date Value 07/29/2022 8.6 (L) Glucose (mg/dL) Date Value 07/29/2022 91 BUN (mg/dL) Date Value 07/29/2022 8 Creatinine (mg/dL) Date Value 07/29/2022 0.66 Sodium (mmol/L) Date Value 07/29/2022 134 (L) Potassium (mmol/L) Date Value 07/29/2022 4.8 Chloride (mmol/L) Date Value 07/29/2022 98 CO2 (mmol/L) Date Value 07/29/2022 25 Protein, Total (g/dL) Date Value 07/29/2022 7.3 Albumin (g/dL) Date Value 07/29/2022 4.4 Calcium, Total (mg/dL) Date Value 07/29/2022 9.5 Alkaline Phosphatase (U/L) Date Value 07/29/2022 166 (H) Bilirubin, Total (mg/dL) Date Value 07/29/2022 0.4 AST (U/L (more content not included)...[facility]10-05-[facility] History of Present illness Narrative* Ricci Garcia MD - 08/12/2022 5:17 PM EDT Images from the original note were not included. NAME: Mikey Montez CLINIC NO.: [id number] DATE OF SERVICE: August 12, 2022 Some elements in this clinic note that are critical to medical decision making have been carefully reviewed and included from a prior clinic note dated: July 29, 2022 Referring Provider: Scotty Ruiz Additional Clinicians involved in Mikey Montez's care: VIRTUAL VISIT PROGRESS NOTE This is a virtual visit using Telephone only for 8 minutes . It required patient-provider interaction for the medical decision making as documented below. DIAGNOSIS: Elevated iron HFE homozygous ASSESSMENT: 56 year old woman with prior history of sleep apnea as well as seizures who was found to have intermittently elevated iron levels concerning for HFE. 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 Given that her ferritin is less than 500 but iron sats are elevated, we con conservatively phlebotomize her. She doesn't have evidence of end-organ damage. PLAN: Arrange for phlebotomy 1 unit for Hgb > 13 next week Labs in 3 months RTC 1 week after labs and schedule for possible phlebotomy after clinician. HPI: CASE HISTORY: 07/29/2022 - HFE testing: C282Y: LOLA . H63D: WT . S65C: WT 07/08/2022 - Normal CBC, iron 229, iron sat 79%, ferritin 182 2003 JENNIFER/BSO Updated Visit, August 12, 2022: Telephone only for 8 minutes Called and spoke with Mikey regarding her labs and confirmation of HFE as requested. She agrees to phlebotomy and I will arrange for her to come in. Initial Visit, July 29, 2022: Mikey Montez presents today Hematology and Oncology evaluation. She is a 56 year old female who multiple medical problems including seizure disorder for which she has had cranial surgery for inthe past presents with variable iron levels. More recently iron has been elevated but ferritin is normal. She was referred for a concern of iron overload / metabolism issues and so will work her up for HFE. HISTORY REVIEWED (electronic chart updated): PAST MEDICAL HISTORY Diagnosis Date Epilepsy (HCC) 1977 Hemochromatosis 07/2022 PAST SURGICAL HISTORY Procedure Laterality Date COLONSCOPY SCREENING HIGH RISK 2017 LIGATE FALLOPIAN TUBE PAST SURGICAL HISTORY OF 1988 brain surgery TOTAL ABDOM HYSTERECTOMY 2003 FAMILY HISTORY Problem Relation Age of Onset Stroke Mother Diabetes Father Obstructive Sleep Apnea Father Social History Tobacco Use Smoking status: Never Passive exposure: Past Smokeless tobacco: Never Vaping Use Vaping Use: Never used Substance Use Topics Alcohol use: No Drug use: No Current Outpatient Medications Medication Sig calcium phosphate dibas/vit D3 (VITAMIN D, WITH CALCIUM, ORAL) levETIRAcetam (KEPPRA) 1,000 mg tablet OXcarbazepine (TRILEPTAL) 300 mg tablet VITAMIN D 50,000 unit capsule PREMARIN 0.625 mg tablet levothyroxine (SYNTHROID) 25 mcg tablet meloxicam (MOBIC) 15 mg tablet VALACYCLOVIR 500 MG TAB Take one(1) tablet daily. No current facility-administered medications for this visit. ALLERGIES Allergen Reactions Penicillins rash Phenobarbital Mental changes REVIEW OF SYSTEMS: As noted in HPI PHYSICAL EXAMINATION: VIDEO EXAM: (if completed, performed via video enabled technology) No exam performed LABORATORY VALUES: WBC (k/uL) Date Value 07/29/2022 5.81 RBC (m/uL) Date Value 07/29/2022 4.39 Hemoglobin (g/dL) Date Value 07/29/2022 14.5 Hematocrit (%) Date Value 07/29/2022 41.6 MCV (fL) Date Value 07/29/2022 94.8 MCH (pg) Date Value 07/29/2022 33.0 MCHC (g/dL) Date Value 07/29/2022 34.9 RDW-CV (%) Date Value 07/29/2022 12.1 Platelet Count (k/uL) Date Value 07/29/2022 311 MPV (fL) Date Value 07/29/2022 8.6 (L) Glucose (mg/dL) Date Value 07/29/2022 91 BUN (mg/dL) Date Value 07/29/2022 8 Creatinine (mg/dL) Date Value 07/29/2022 0.66 Sodium (mmol/L) Date Value 07/29/2022 134 (L) Potassium (mmol/L) Date Value 07/29/2022 4.8 Chloride (mmol/L) Date Value 07/29/2022 98 CO2 (mmol/L) Date Value 07/29/2022 25 Protein, Total (g/dL) Date Value 07/29/2022 7.3 Albumin (g/dL) Date Value 07/29/2022 4.4 Calcium, Total (mg/dL) Date Value 07/29/2022 9.5 Alkaline Phosphatase (U/L) Date Value 07/29/2022 166 (H) Bilirubin, Total (mg/dL) Date Value 07/29/2022 0.4 AST (U/L) Date Value 07/29/2022 21 ALT (U/L) Date Value 07/29/2022 18 DIAGNOSIS: No diagnosis found. Ricci Garcia MD, CPE Hematology and Oncology Services Provided at: [place], [place] CC: Scotty Ruiz [address] [place] [id number] Scotty Ruiz DO [address] [place] [id number] documented in this encounterW[facility]09-27-2022 NoteChief Complaint consultation for screening colonoscopy HPI Staff 56 year old female presents on consultation from Dr. Ruiz for screening colonoscopy. Denies abdominal or rectal pain. No rectal bleeding or change in bowel habits. No nausea or vomiting. No unexplained weight loss. Never had colonoscopy in the past. No known family history of colon cancer. History of Present Illness 56 yo female with h/o epilepsy, hemochromatosis, hypothyroidism, LORENA, hyperlipidemia, referred for colorectal screening; denies change in bms or blood in stools; no abdominal complaints; denies asa or NSAID use, no SBE prophylaxis; no previous colonoscopy, abdominal operations significant for tubal ligation and vaginal hysterectomy; no fmhx of GI malignancy or IBD; no tobacco use. Review of Systems PHQ Score Initial Depression Screen Score: 0 ROS - Provider Constitutional: no fever, no sweats, no weight loss. Eyes: yes glasses, no blurred vision, no visual loss. ENMT: no dentures, no hoarseness, no swallowing difficulties, no hearing loss, no ear infection(s),no nose bleeds. Cardiovascular: normal blood pressure, no chest pain, regular heartbeat, no heart murmur. Respiratory: no shortness of breath, no cough, no asthma, no wheezing. Gastrointestinal: no nausea, no vomiting, no diarrhea, no constipation, no blood in stool, no change in bowel habits, no abdominal pain, no hepatitis. Genitourinary: no kidney stones, no urine infection, no dysuria. Musculoskeletal: no pain, no weakness. Skin: no changing moles, no rash, no skin lumps. Neurologic: no seizures, no epilepsy, no headache. Psychiatric: no emotional or psychiatric problem. Heme/Lymph: no bleeding problems, no anemia, no blood clots, no transfusions. Allergy/Immunologic: no swollen lymph nodes/glands, no IV drug abuse. Other: Additional ROS info: Except as noted in the above Review of Systems and in the History of Present Illness, all other systems have been reviewed and are negative or noncontributory. Physical Exam Vitals & Measurements HR: 72(Peripheral) RR: 16 BP: 118/80 HT: 65 in HT: 165.1 cm WT: 125 kg WT: 275 lb BMI: 45.86 HEENT: normal conjunctiva, sclera clear, no scleral icterus, EOM intact, PERRLA, oral mucosa moist without lesions. Neck: trachea midline, no mass, symmetric, no thyromegaly or nodules, no adenopathy Respiratory: lungs CTA, respirations non labored. Cardiovascular: regular rate and rhythm, no murmur, no pedal edema or varicosities. Gastrointestinal: obese, soft, non distended, no tenderness, no masses, no palpable hernias, diastasis recti no, no hepatosplenomegaly; normal bs Lymphatic: no cervical adenopathy, Musculoskeletal: normal gait, digits and nails without infection, nodes, cyanosis, clubbing. Skin: no rashes, no lesions, no ulcers, no subcutaneous nodules, induration. Psychiatric/Neuro: oriented to time, place, person, judgement normal, affect appropriate for age, insight intact, no focal deficits. Tests: review of old records completed, Discussed surgical options, risks, and possible complications with patient. Assessment/Plan 1. Screening for malignant neoplasm of colon (Z12.11: Encounter for screening for malignant neoplasm of colon) plan colonoscopy under anesthesia, informed consent obtained. 2. BMI 45.0-49.9, adult (Z68.42: Body mass index [BMI] 45.0-49.9, adult) recommend diet and exercise. Follow-up No qualifying data available Problem List/Past Medical History Ongoing BMI 45.0-49.9, adult Epilepsy Hemochromatosis Hyperlipidemia Hypothyroidism LORENA (obstructive sleep apnea) Screening for malignant neoplasm of colon Vitamin D deficiency Historical No qualifying data Procedure/Surgical History Closed reduction of fracture of ankle, Craniotomy, Tubal ligation, Vaginal hysterectomy. Medications calcium-vitamin D folic acid 0.4 mg Tab, 0.4 mg= 1 tab(s), Oral, Daily Keppra 1000 mg oral tablet, 1000 mg= 1 tab(s), Oral, BID levothyroxine 50 mcg (0.05 mg) Tab, 50 mcg= 1 tab(s), Oral, Daily oxcarbazepine 300 mg Tab, 300 mg= 1 tab(s), Oral, BID valacyclovir 1 g Tab, 1 gm= 1 tab(s), Oral, Daily Vimpat 200 mg oral tablet, 200 mg= 1 tab(s), Oral, BID Vitamin D 50,000 intl units (1.25 mg) oral capsule, [address] International_Unit= 1 cap(s), Oral, qWeek Allergies Depakote (Mood) PHENobarbital (Other) penicillin (Rash) Social History Alcohol - Denies Alcohol Use, 08/04/2022 Substance Abuse - Denies Substance Abuse, 08/04/2022 Tobacco Never (less than 100 in lifetime) Tobacco Use:. Never Smokeless Tobacco Use:., 08/04/2022 Family History Diabetes mellitus type 2: Father. Sleep apnea: Father, Sister and Brother. Stroke: Mother. Immunizations Vaccine Date Status Comments influenza virus vaccine, inactivated - Not Given Patient Refuses SARS-CoV-2 (COVID-19) mRNA BNT-162b2 vax 02/07/2021 Given Prophylaxis SARS-CoV-2 (COVID-19) mRNA BNT-162b2 vax 01/17/2021 [facility] CampusComment on above:Result Comment: Electronically Signed By: MOMO CHAND, Kerry Barfield\Date and Time Signed: 08/04/22 15:39 [id number] Note HNO ID: [id number] Author: Ricci Garcia MD Service: ? Author Type: Physician Type: Progress Notes Filed: 07/30/2022 12:33 PM Note Text: NAME: Mikey Montez CLINIC NO.: [id number] DATE OF SERVICE: July 29, 2022 Referring Provider: Scotty Ruiz Consultation requested by Dr. Ruiz for an opinion regarding Ms. Mikey Montez, and my final recommendations will be communicated back to the requesting physician by way of shared medical record or letter via US mail. Additional Clinicians involved in Mikey Montez's care: DIAGNOSIS: Elevated iron ASSESSMENT: 56 year old woman with prior history of sleep apnea as well as seizures who was found to have intermittently elevated iron levels concerning for HFE. She's s/p JENNIFER almost 20 years ago and Ferritin is normal so my suspicion for HFE is low. We will check gene studies to make a determination. PLAN: HFE and iron labs today Call results in 2 weeks. HPI: CASE HISTORY: 07/08/2022 - Normal CBC, iron 229, iron sat 79%, ferritin 182 2003 JENNIFER/BSO Initial Visit, July 29, 2022: Mikey Montez presents today Hematology and Oncology evaluation. She is a 56 year old female who multiple medical problems including seizure disorder for which she has had cranial surgery for in the past presents with variable iron levels. More recently iron has been elevated but ferritin is normal. She was referred for a concern of iron overload / metabolism issues and so will work her up for HFE. REVIEW OF SYSTEMS Per HPI and otherwise negative by full review of organ systems. ECOG PERFORMANCE STATUS: 0 PHYSICAL EXAMINATION: Vitals: BP 152/89 Pulse 83 Temp (Src) 97.1 (Temporal) Resp 16 Ht 5' 5 (1.65m) Wt 271 lb 1.6 oz (123.0kg) SpO2 98% BMI 45.11 kg/(m2). Body surface area is 2.38 meters squared. Exam limited to gross visualization where appropriate due to COVID-19. Gen.: This is an age-appropriate patient in no acute distress. Head: Appears atraumatic with no visible lesions. Eyes: Pupils equally round and reactive to light, extraocular muscles are intact. Neck: Supple. Mouth: Masked. Respiratory: Appears to be respiring comfortably. Neurologic: Nonfocal to gross visualization. Alert and oriented ?3. Psychiatric: No evidence of inappropriate anxiety or depression. Skin: Visible areas of skin without rash, lesions, wounds or petechiae. ALLERGIES: ALLERGIES Allergen Reactions Penicillins rash Phenobarbital Mental changes MEDICATIONS: calcium phosphate dibas/vit D3 (VITAMIN D, WITH CALCIUM, ORAL) levETIRAcetam (KEPPRA) 1,000 mg tablet OXcarbazepine (TRILEPTAL) 300 mg tablet VITAMIN D 50,000 unit capsule PREMARIN 0.625 mg tablet levothyroxine (SYNTHROID) 25 mcg tablet meloxicam (MOBIC) 15 mg tablet VALACYCLOVIR 500 MG TAB Take one(1) tablet daily. 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 Plan: HFE (HEMOCHROMATOSIS), CBC + DIFF, COMP METABOLIC PANEL, IRON + TIBC, FERRITIN BLD, HFE (HEMOCHROMATOSIS), CBC + DIFF, COMP METABOLIC PANEL, IRON + TIBC, FERRITIN BLD (E83.119) Hemochromatosis, unspecified hemochromatosis type Plan: HFE (HEMOCHROMATOSIS), CBC + DIFF, COMP METABOLIC PANEL, IRON + TIBC, FERRITIN BLD, HFE (HEMOCHROMATOSIS), CBC + DIFF, COMP METABOLIC PANEL, IRON + TIBC, FERRITIN BLD PAST MEDICAL HISTORY Diagnosis Date Epilepsy (HCC) 1978 Hemochromatosis 07/2022 PAST SURGICAL HISTORY Procedure Laterality Date COLONSCOPY SCREENING HIGH RISK 2017 LIGATE FALLOPIAN TUBE PAST SURGICAL HISTORY OF 1989 brain surgery TOTAL ABDOM HYSTERECTOMY 2003 Social History Tobacco Use Smoking status: Never Passive exposure: Past Smokeless tobacco: Never Substance Use Topics Alcohol use: No Drug use: No FAMILY HISTORY Problem Relation (more content not included)...[facility] 07-29-2022 Instructions* Patient Instructions* Ricci Garcia MD - 07/29/2022 11:49 AM EDT HFE and iron labs today Call results in 2 weeks. documented in this encounterW[facility]09-21-2022 History of Present illness Narrative* Ricci Garcia MD - 07/29/2022 11:00 AM EDT Images from the original note were not included. NAME: Mikey Montez [facility] NO.: [id number] DATE OF SERVICE: July 29, 2022 Referring Provider: Scotty Ruiz Consultation requested by Dr. Ruiz for an opinion regarding Ms. Mikey Montez, and my final recommendations will be communicated back to the requesting physician by way of shared medical record or letter via [place] mail. Additional Clinicians involved in Mikey Montez's care: DIAGNOSIS: Elevated iron ASSESSMENT: 56 year old woman with prior history of sleep apnea as well as seizures who was found to have intermittently elevated iron levels concerning for HFE. She's s/p JENNIFER almost 20 years ago andFerritin is normal so my suspicion for HFE is low. We will check gene studies to make a determination. PLAN: HFE and iron labs today Call results in 2 weeks. HPI: CASE HISTORY: 07/08/2022 - Normal CBC, iron 229, iron sat 79%, ferritin 182 2003 JENNIFER/BSO Initial Visit, July 29, 2022: Mikey Montez presents today Hematology and Oncology evaluation. She is a 56 year old female who multiple medical problems including seizure disorder for which she has had cranial surgery for inthe past presents with variable iron levels. More recently iron has been elevated but ferritin is normal. She was referred for a concern of iron overload / metabolism issues and so will work her up for HFE. REVIEW OF SYSTEMS Per HPI and otherwise negative by full review of organ systems. ECOG PERFORMANCE STATUS: 0 PHYSICAL EXAMINATION: Vitals: BP 152/89 Pulse 83 Temp (Src) 97.1 (Temporal) Resp 16 Ht 5' 5 (1.65m) Wt 271 lb 1.6 oz (123.0kg) SpO2 98% BMI 45.11 kg/(m^2). Body surface area is 2.38 meters squared. Exam limited to gross visualization where appropriate due to COVID-19. Gen.: This is an age-appropriate patient in no acute distress. Head: Appears atraumatic with no visible lesions. Eyes: Pupils equally round and reactive to light, extraocular muscles are intact. Neck: Supple. Mouth: Masked. Respiratory: Appears to be respiring comfortably. Neurologic: Nonfocal to gross visualization. Alert and oriented 3. Psychiatric: No evidence of inappropriate anxiety or depression. Skin: Visible areas of skin without rash, lesions, wounds or petechiae. ALLERGIES: ALLERGIES Allergen Reactions Penicillins rash Phenobarbital Mental changes MEDICATIONS: calcium phosphate dibas/vit D3 (VITAMIN D, WITH CALCIUM, ORAL) levETIRAcetam (KEPPRA) 1,000 mg tablet OXcarbazepine (TRILEPTAL) 300 mg tablet VITAMIN D 50,000 unit capsule PREMARIN 0.625 mg tablet levothyroxine (SYNTHROID) 25 mcg tablet meloxicam (MOBIC) 15 mg tablet VALACYCLOVIR 500 MG TAB Take one(1) tablet daily. 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 Plan: HFE (HEMOCHROMATOSIS), CBC + DIFF, COMP METABOLIC PANEL, IRON + TIBC, FERRITIN BLD, HFE (HEMOCHROMATOSIS), CBC + DIFF, COMP METABOLIC PANEL, IRON + TIBC, FERRITIN BLD (E83.119) Hemochromatosis, unspecified hemochromatosis type Plan: HFE (HEMOCHROMATOSIS), CBC + DIFF, COMP METABOLIC PANEL, IRON + TIBC, FERRITIN BLD, HFE (HEMOCHROMATOSIS), CBC + DIFF, COMP METABOLIC PANEL, IRON + TIBC, FERRITIN BLD PAST MEDICAL HISTORY Diagnosis Date Epilepsy (HCC) 1977 Hemochromatosis 07/2022 PAST SURGICAL HISTORY Procedure Laterality Date COLONSCOPY SCREENING HIGH RISK 2016 LIGATE FALLOPIAN TUBE PAST SURGICAL HISTORY OF 1988 brain surgery TOTAL ABDOM HYSTERECTOMY 2003 Social History Tobacco Use Smoking status: Never Passive exposure: Past Smokeless tobacco: Never Substance Use Topics Alcohol use: No Drug use: No FAMILY HISTORY Problem Relation Age of Onset Stroke Mother Diabetes Father Obstructive Sleep Apnea Father I spent a total of 40 minutes on the date of the service which included preparing to see the patient, [id number] patient care, completing clinical documentation, obtaining and/or reviewing separately obtained history, performing a medically appropriate examination, counseling and educating the pat ient/family/caregiver, ordering medications, tests, or procedures, and independently interpreting results (not separately reported). Ricci Garcia MD, CPE Hematology and Oncology Services Provided at: [place], [place] CC: Scotty Ruiz [address] [place] [id number] Sctoty Ruiz DO [address] [place] [id number] [facility]* Encounter Date Diagnosis Assessment Notes Treatment Notes Treatment Clinical Notes Jul, Hypothyroidism (ICD-10 - E03.9) Discussed thyroid results with patient today. TSH is 0.963. Free T3 is 2.02. Free T4 is 0.98. Continue with the same dose of Levothyroxine. Jul, Hematuria (ICD-10 - R31.9) We discussed that her urinalysis from Nov) and this time did show a trace of blood. She had a hysterectomy. She has never seen a urologist in the past. No history of kidney stones. I did recommend that she do a repeat urinalysis in the next 1-2 weeks. She can call for the results. Based on those results then we may have her see a urologist for evaluation. Jul, Hyponatremia (ICD-10 - E87.1) Her sodium level was low at 129. She admits to drinking alot of water. She should cut her water in half for the next 1-2 weeks. She does not salt her foods. I did recommend that she cut back on the intake of water and instead salt her foods. Will repeat lab in 1-2 weeks. Jul, Elevated alkaline phosphatase level (ICD-10 - R74.8) Her alk phos level was 160. Her alkaline phos level was broken down in Nov). Her liver fraction was 60. Bone fraction was 36. Intestinal fraction was 4. Most of the time this is from needing Vitamin D. She is to continue to take the Vitamin D. Will order another alk phos isoenzyme to be done now, she can call for results. Jul, Hyperlipidemia (ICD-10 - E78.5) Discussed cholesterol results with patient today. Total is 215. HDL is 98. LDL is 105.4. Triglycerides are 58. She is to continue to watch her intake of carbs and sugars, stay active. Jul, Vitamin D deficiency (ICD-10 - E55.9) Her Vitamin D level is 50.4. She is to continue with her Vitamin D supplement. Jul, Other skilled nursing (current) drug therapy (ICD-10 - Z79.899) Jul, Nocturia (ICD-10 - R35.1) Jul, Epilepsy (ICD-10 - G40.909) She voices that her aura's are up so she does not like to drive too far. She continues to follow with Dr. Aguilar at this time and has an upcoming appointment to see her. She states that she takes her medication daily as directed. Jul, Hemochromatosis (ICD-10 - E83.119) We discussed that her Iron level is high again at 219. Ferritin is 182. She saw Dr. Vinson in the past who saw her two times and each time said something different. I did advise her that she should see another matchbook maker to determine if she has hemochromatosis or not. She is agreeable to this. A referral is provided. Jul, Sleep apnea, unspecified (ICD-10 - G47.30) She continues to follow with Dr. Angulo, she voices that she recently saw him. She does not care for the CPAP machine but if she does not wear her machine then she knows it and feels that she benefits from the machine. Jul, Hyperglycemia (ICD-1 0 - R73.9) Discussed blood sugar results with patient today. Glucose is 108. HgA1C is 5.3 which is normal. Jul, Weight gain (ICD-10 - R63.5) She voices that about two years ago she had an appointment in [place] with a bariatric surgeon and at the time Dr. Weaver told her that this was fine but then Dr. Peters told her that this would not be something he would clear her for. She has an appointment to see Dr. Aguilar in a few weeks and is going to discuss this with her. She spoke with her insurance company who advised her that they would cover all but $500 dollars of the surgery. She has been drinking alot of water every day to help cut down on the amount she is eating. Jul, Encounter for mammogram to establish baseline mammogram (ICD-10 - Z12.31) She voices that her insurance only covers a mammogram every other year, last one done in May 2021. Dr. Mckeon orders these for her. Jul, Encounter for screening colonoscopy (ICD-10 - Z12.11) I did recommend that she have a colonoscopy, she agrees. A referral is provided. [facility] Other 07-27-2022 Evaluation note* Encounter Date Diagnosis Assessment Notes Treatment Notes Treatment Clinical Notes May, LORENA (obstructive sleep apnea) (ICD-10 - G47.33) [facility] Other 10-25-2021 Evaluation note* Encounter Date Diagnosis Assessment Notes Treatment Notes Treatment Clinical Notes Aug, Hypothyroidism (ICD-10 - E03.9) [facility] Other Evaluation + Plan note No data available for this section General Surgery [place] Evaluation noteNo InformationNort [employer] Other Evaluation noteNo assessment information available [facility] Work Phone: Evaluation note* Diagnosis Family history of hemochromatosis- Primary Family history of other endocrine and metabolic diseases Disorder of iron metabolism Other disorders of iron metabolism Hemochromatosis, unspecified hemochromatosis type [facility] Diagnosis 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 Natalio Weaver Medical History History of [place] Medical History Hemochromotosis Medical History Dr. Mckeon, perform's patient's pap's and pelvics Medical History Patient states that she get's her Medical Equipment from [facility] Equipment Medical History LORENA (obstructive sleep apnea) Medical History Refuses Colonoscopy 02-08-17 Surgical History Brain Surgery 1988 Surgical History Tubal Ligation 1991 Surgical History Hysterectomy 2003 Hospitalization History Brain Surgery 1988 Hospitalization History Tubal Ligation 1991 Hospitalization History Hysterectomy 2003 [facility] Other [facility] general Narrative - Reported* Type Description Date Medical History Epilepsy-1977; Follow's with Dr. Natalio Weaver Medical History History of [place] Medical History Hemochromotosis Medical History Dr. Mckeon, jabari's patient's pap's and pelvics Medical History Patient states that she get's her Medical Equipment from [employer] Medical History LORENA (obstructive sleep apnea) Medical History Refuses Colonoscopy 02-08-17 Medical History gallstones Surgical History Brain Surgery 1988 Surgical History Tubal Ligation 1991 Surgical History Hysterectomy 2003 Surgical History Colonoscopy - Dr. Jones / sigmoi d polyp 09/25/22 Hospitalization History Brain Surgery 1988 Hospitalization History Tubal Ligation 1991 Hospitalization History Hysterectomy 2003 [facility] Other History general Narrative - Reported* Type Description Date Medical History Epilepsy-1977; Follow's with Dr. Natalio Weaver Medical History History of [place] Medical History Hemochromotosis Medical History Dr. Mckeon, jabari's patient's pap's and pelvics Medical History Patient states that she get's her Medical Equipment from [employer] [facility] Medical History LORENA (obstructive sleep apnea) Medical History Refuses Colonoscopy 02-08-17 Medical History gallstones Surgical History Brain Surgery 1988 Surgical History Tubal Ligation 1991 Surgical History Hysterectomy 2003 Surgical History Colonoscopy - Dr. Holly presley / sigmoid polyp / needs repeat in 202409/09/22 Surgical History bariatric surgery 06/22/23 Hospitalization History Brain Surgery 1988 Hospitalization History Tubal Ligation 1991 Hospitalization History Hysterectomy 2003 [facility] Other Hospital Discharge instructions No data available for this section General Surgery [place] Progress note No data available for this section General Surgery [place] Reason for visit Narrativereview labs/medical [facility] [employer] Other Chief Complaint and Reason for Visit Chief Complaint Sleep apnea annual f ollow up Chief Complaint Sleep apnea annual f ollow up Cognitive Disability Chief Complaint Cognitive Disability Chief Complaint Obstructive sleep ap ricardo Advance Directives Advance Directive Response Recorded Date/ Time Advance Directives No January 26 1:08pm Advance Directive Response Recorded Date/ Time Advance Directives No January 26 12:08pm Reason for Referral Reason appt pt needs scre ening colonoscopy Diagnosis 1 Encounter for screen ing colonoscopy (Z12.11) Referral Organization [facility] Referring Provider First Name Scotty Referring Provider Last Name Sara Referring Provider Specialty Family Prac marcy Referred Organization [facility] Referred Provider Kerry Jones Referred Address ,[place], [place],[address] Referred Provider Specialty Surgery Referral Priority Routine General Notes Luh Giraldo 07/14/2022 02:16:50 PM > referral faxed with visit note and insurance card. pt understands she will be contacted to schedule this appt. Reason appt pt is marcela breaux to see whomever can see her first pt needs consult to discuss official dx of hemochromatosis Diagnosis 1 Hemochromatosis (E83 .119) Referral Organization [facility] Family [facility] Referring Provider First Name Scotty Referring Provider Last Name Brendanmono Referring Provider Specialty Family Prac marcy Referred [facility] Referred Provider Ricci Garcia Referred Address [address] [place], [place],[address] Referred Provider Specialty Hematology/O ncology Referral Priority Routine General Notes Luh Giraldo 07/14/2022 02:25:54 PM > referral faxed with visit note, lab results and insurance card. pt understands she will be contacted to schedule this appt. Summary Purpose Family History No Family History Records FoundNo Family History Records FoundNo Family History Records FoundNo Family History Records Found Additional Source Comments REASON FOR VISIT (unrecogniz ed section and content) review labs Reason Comments Hemachromatosis New patient consult Reason Comments Established Patient Care Teams (unrecognized sec tion and content) Team Status: Inactive Member Role Status Tawanda Ruiz DO Primary Care Provider Active Rajendra Angulo MD Attending Provider Active Team Status: Active Member Role Status Tawanda Ruiz DO Primary Care Provider Active Team Status: Inactive Member Role Status Tawanda Ruiz DO Primary Care Provider Active Mahendra Romo , PhD Attending Provider Active [employer] Spinner Relationship Specialty Start Date End Date Vincent Aguilar [address] [place] [address] PCP - General Neurology 07/29/22 U[employer]ist Spinner Relationship Specialty Start Date End Date Vincent Aguilar [address] [place] [address] PCP - General Neurology 07/29/22 Goals (unrecognized section and content) Goals may be documented in a n alternate section Source Comments (unrecognize d section and content) In the event this informatio n is protected by the Federal Confidentiality of Alcohol and Drug Abuse Patient Records regulations: The Federal rules restrict any use of the information to criminally investigate or prosecute any alcohol or drug abuse patient.[facility] the event this information is protected by the Federal Confidentiality of Alcohol and Drug Abuse Patient Records regulations: The Federal rules restrict any use of the information to criminally investigate or prosecute any alcohol or drug abuse patient.[facility] the event this information is protected by the Federal Confidentiality of Alcohol and Drug Abuse Patient Records regulations: The Federal rules restrict any use of the information to criminally investigate or prosecute any alcohol or drug abuse patient.[facility] INFORMATION SOURCE (unrecogn ized section and content) DATE CREATED AUTHOR 08/30/2022 [facility] DATE CREATED AUTHOR AUTHOR'S ORGANIZ ATION 09/27/2022 [facility] DATE CREATED AUTHOR AUTHOR'S ORGANIZ ATION 01/13/2023 [facility] DATE CREATED AUTHOR AUTHOR'S ORGANIZ ATION 06/04/2023 [facility] FOR RECORDS PERTAINING TO PATIENTS WHO ARE OR HAVE BEEN ENROLLED IN A CHEMICAL DEPENDENCY/SUBSTANCEABUSE PROGRAM, SOME INFORMATION MAY BE OMITTED. This clinical summary was aggregated from multiple sources. Caution should be exercised in using it in the provision of clinical care. This summary normalizes information from multiple sources, and as a consequence, information in this document may materially change the coding, format and clinical context of patient data. In addition, data may be omitted in some cases. CLINICAL DECISIONS SHOULD BE BASED ON THE PRIMARY CLINICAL RECORDS. [facility] [employer], [facility]. provides no warranty or guarantee of the accuracy or completeness of information in this document.
[2023-11-26 17:08] LABS: Age Gdln ACOG Testing Note (.); HPV Aptima Negative (Negative); IGP, Aptima HPV, rfx 16/18,45 Note (.)
== END 2023-11-23 21:04 | disposition home or self-care (01) ==
LOC: LAB 21:03
PROVIDERS: PCP Family Medicine; Visit Provider Obstetrics & Gynecology
DX: Z01.419 Encounter for gynecological examination (general) (routine) without abnormal findings (principal)
CPT/HCPCS: 87624; G0145

== ENCOUNTER 2023-11-29 12:49 | Outpatient (OUT) | payer MEDICARE, SELFPAY ==
--- NOTE | 2023-11-29 12:52 | XR_ITS ---
[address] [address] Patient Name: MIKEY MONTEZ MRN: [id number] date: 1965 Sex: F Assigned Patient Location: [facility] Current Patient Location: [facility] Accession/Order Number: [id number] Exam Date: 11/29/2023 13:05 Report Date: 11/29/2023 13:25 At the request of: EZEQUIEL LESTER Procedure: XR DEXA axial skeleton EXAMINATION: XR DEXA axial skeleton, 11/29/2023 1:05 PM EST HISTORY: Postmenopausal State Z78.0 COMPARISON: 2018. TECHNIQUE: Dual-energy X-ray absorptiometry (DEXA) bone density study performed for the axial skeleton. HISTORY: Postmenopausal State Z78.0 FINDINGS: Bone mineral density of the lumbar spine L1-L4 measures 1.252 g/sq cm. T score 0.6. WHO classification: Normal. Lowest bone mineral density right femoral trochanter measures 0.548 g/sq cm. T score -2.6. WHO classification: Osteoporosis XR/XR DEXA axial skeleton IMPRESSION: Osteoporosis. High fracture risk Electronically authenticated by: SCOTTY MODI Date: 11/29/2023 13:25
--- OUTSIDE RECORDS SUMMARY | 2023-11-29 12:52 | XMS_ITS | CCD ---
Author Name Unknown Address [address] [place] [address] Organization [facility] Care Team Providers Care Back Stayer Name Role Phone Scotty Ruiz Unavailable Rajendra Angulo Unavailable DO Scotty Ruiz Primary Care Provider [phone] MD Rajendra Angulo Attending Provider Clarissa, PhD Mahendra Attending Provider Vincent Aguilar Primary Care Provider [phone] Scotty Ruiz Primary Care Physician SCOTTY RUIZ Referring Unavailable SCOTTY RUIZ Primary Care Unavailable RICCI GARCIA Attending Unavailable VINCENT AGUILAR Primary Care Unavailable HYDEBORAHAR, RICCI Referring Unavailable VINCENT AGUILAR Primary Care Unavailable HUSSAINARRICCI Referring Unavailable RICCI GARCIA Attending Unavailable VINCENT AGUILAR Primary Care Unavailable HUSSAINAR, RICCI Referring Unavailable VINCENT AGUILAR Primary Care Unavailable ABHYANKAR, RICCI Referring Unavailable Opal Janie Unavailable Scotty Ruiz Referring Unavailabl e Kerry JONES Attending Unavailable Kerry JONES Attending Unavailable Kerry JONES Attending Unavailable Scotty Ruiz Referring Unavailabl e Kerry JONES Attending Unavailable DO Scotty Ruiz Primary Care Provider [phone] Clarissa, PhD Mahendra Attending Provider [phone] NILJolene ., DR PAYNE Admitting Unavailable NILL ., DR PAYNE Attending Unavailable SARA, DR FAJARDO Primary Care Unavailable NILL ., DR PAYNE Consulting Unavailable DO INTERIANO Admitting Unavailable DO INTERIANO Attending Unavailable SARA, DR FAJARDO Primary Care Unavailable NILL ., DR PAYNE Admitting Unavailable NILL ., DR PAYNE Attending Unavailable GIRVIN, DR FAJARDO Primary Care Unavailable NILL ., DR PAYNE Consulting Unavailable MORGOS, EMMY Consulting Unavailable GREGORY, NATALIO ORTEGA Consulting Unava [...] Care Unavailable GIRVIN, DR FAJARDO Consulting Unavailable Girvin, DO Fajardo Primary Care Provider [phone] MD Rajendra Angulo Attending Provider [phone] Mahendra Romo Attending Unavailable Mahendra Romo Admitting Unavailable Scotty Ruiz Primary Care Unavailable Rajendra Angulo Attending UnavailRajendra Small Admitting Unavaila ble Scotty Ruiz Primary Care Unavailable EZEQUIEL LESTER Attending Unavailable Allergies Allergy Classification Reported Allergen(s) Allergy Type Date of Onset Reaction(s) Facility (14 sources) Penicillin V Drug Allergy rash [facility] Other (17 sources) Valproate; Translations: [divalproex sodium] Drug Allergy Mood [facility] [place] (4 sources) Penicillins; Translations: [PENICILLINS] Propensity to adverse reactions 8 [facility] (8 sources) PHENobarbital; Translations: [phenobarbital] Drug Allergy 8 Other (qualifier value) [facility] (4 sources) Penicillin; Translations: [penicillin] Drug Allergy Eruption of skin (disorder) [facility] (2 sources) Valproate; Translations: [Depakote] Drug Allergy [facility] (1 source) benzoin resin Drug Allergy [facility] (1 source) Penicillins Drug allergy (disorder) 5 [facility] (1 source) Phenytoin Drug Allergy [facility] (1 source) Unable to Assess Drug allergy (disorder) 9 [facility] Medications Current Medications Medication Drug Class(es) [...] one(1) tablet d aily. Vitamin D (Ergocalciferol) 10802 UNIT (1 source) take 1 capsule by mouth every week Vitamin D (Ergocalciferol) 82556 UNIT TAKE 1 CAPSULE BY MOUTH ONCE [...] mouth every we ek Vitamin D (Ergocalciferol) 03821 UNIT TAKE 1 CAPSULE BY MOUTH ONCE A WEEK for 90 days Active take 1 capsule by mouth every we ek Vitamin D (Ergocalciferol) 90699 UNIT TAKE 1 CAPSULE BY MOUTH ONCE A WEEK Active estrogens, conjugated (mcfp) 0.625 mg oral tablet (3 sources) Estrogen [...] 07-14-2022 Chronic Other aftercare (5 sources) Other fpc (current) drug therapy; Translations: [OTH FDC CURRENT DRUG THERAPY] Onset: 07-14-2022 Resolved: 07-14-2022 [...] [Catalytic activity/Vol] 159 U/L Critically high 44-121 [facility] Comment on above: Performed By: #### A LKPISO #### [facility] [address] [place] [address] Dr. Cecilio Gale Bone Fraction: 36 % Normal 14-68 [facility] Comment on above: Performed By: #### A LKPISO #### [facility] [address] [place] [address] Dr. Cecilio Gale Intestinal Frac.: 6 % Normal 0-18 [facility] Comment on above: Performed By: #### A LKPISO #### [facility] [address] [address] [address] Cecilio Glae Liver Fraction: 59 % Normal 18-85 [facility] Comment on above: Performed By: #### A LKPISO #### [facility] [address] [place] [address] Dr. Cecilio Gale CBC AUTO DIFFon 01-11-2023 BASO # 0.0 103/ul Normal 0.0-0.1 [facility] Comment on above: Performed By: #### F T4, VITAD, FETIBC, FERR #### [facility] [address] [address] [address] Cecilio Gale Basophils/100 WBC (Bld) 0.9 % Normal 0.2-2.0 [facility] Comment on above: Performed By: #### F T4, VITAD, FETIBC, FERR #### [facility] [address] [place] [address] Dr. Cecilio Gale EO # 0.0 103/ul Normal 0.0-0.7 [facility] Comment on above: Performed By: #### F T4, VITAD, FETIBC, FERR #### [facility] [address] [place] [address] Dr. Cecilio Gale Eosinophils/100 WBC (Bld) 0.6 % Critically low 0.9-7.0 [facility] Comment on above: Performed By: #### F T4, VITAD, FETIBC, FERR #### [facility] [address] [place] [address] Dr. Cecilio Gale Erythrocyte distribution width (RBC) [Ratio] 11.8 % Normal 11.0-15.0 [facility] Comment on above: Performed By: #### F T4, VITAD, FETIBC, FERR #### [facility] [address] [place] [address] Dr. Cecilio Gale Hematocrit (Bld) [Volume fraction] 41.3 % Normal 36.0-48.0 [facility] Comment on above: Performed By: #### F T4, VITAD, FETIBC, FERR #### [facility] [address] [place] [address] Dr. Cecilio Gale Hemoglobin (Bld) [Mass/Vol] 14.5 g/dL Normal 12.0-16.0 [facility] Comment on above: Performed By: #### F T4, VITAD, FETIBC, FERR #### [facility] [address] [place] [address] Dr. Cecilio Gale IG # 0.01 10e3/ul Normal 0.00-0.03 [facility] Comment on above: Performed By: #### F T4, VITAD, FETIBC, FERR #### [facility] [address] [place] [address] Dr. Cecilio Gale IG % 0.2 % Normal 0.0-0.5 [facility] Comment on above: Performed By: #### F T4, VITAD, FETIBC, FERR #### [facility] [address] [place] [address] Dr. Cecilio Gale LYMPH # 1.8 103/ul Normal 1.2-3.8 [facility] Comment on above: Performed By: #### F T4, VITAD, FETIBC, FERR #### [facility] [address] [place] [address] Dr. Cecilio Gale Lymphocytes/100 WBC (Bld) 39.1 % Normal 20.5-60.0 [facility] Comment on above: Performed By: #### F T4, VITAD, FETIBC, FERR #### [facility] [address] [place] [address] Dr. Cecilio Gale MANUAL DIFF REQ NO Normal [facility] Comment on above: Performed By: #### F T4, VITAD, FETIBC, FERR #### [facility] [address] [place] [address] Dr. Cecilio Gale MCH (RBC) [Entitic mass] 32.7 pg Normal 26.7-34.0 [facility] Comment on above: Performed By: #### F T4, VITAD, FETIBC, FERR #### [facility] [address] [place] [address] Dr. Cecilio Gale MCHC (RBC) [Mass/Vol] 35.1 g/dL Normal 29.9-35.2 [facility] Comment on above: Performed By: #### F T4, VITAD, FETIBC, FERR #### [facility] [address] [place] [address] Dr. Cecilio Gale MCV (RBC) [Entitic vol] 93.0 fL Normal 81.0-99.0 [facility] Comment on above: Performed By: #### F T4, VITAD, FETIBC, FERR #### [facility] [address] [place] [address] Dr. Cecilio Gale MONO # 0.4 103/ul Normal 0.3-0.8 [facility] Comment on above: Performed By: #### F T4, VITAD, FETIBC, FERR #### [facility] [address] [place] [address] Dr. Cecilio Gale Monocytes/100 WBC (Bld) 9.2 % Normal 1.7-12.0 [facility] Comment on above: Performed By: #### F T4, VITAD, FETIBC, FERR #### [facility] [address] [place] [address] Dr. Cecilio Gale NEUT # 2.3 103/ul Normal 1.4-6.5 [facility] Comment on above: Performed By: #### F T4, VITAD, FETIBC, FERR #### [facility] [address] [place] [address] Dr. Cecilio Gale Neutrophils/100 WBC (Bld) 50.0 % Normal 43.0-75.0 [facility] Comment on above: Performed By: #### F T4, VITAD, FETIBC, FERR #### [facility] [address] [place] [address] Dr. Cecilio Gale Platelet mean volume (Bld) [Entitic vol] 8.6 fL Critically low 9.5-13.5 [facility] Comment on above: Performed By: #### F T4, VITAD, FETIBC, FERR #### [facility] [address] [place] [address] Dr. Cecilio Gale PLT 354 103/ul Normal 150-450 [facility] Comment on above: Performed By: #### F T4, VITAD, FETIBC, FERR #### [facility] [address] [place] [address] Dr. Cecilio Gale RBC 4.44 106/ul Normal 4.20-5.40 [facility] Comment on above: Performed By: #### F T4, VITAD, FETIBC, FERR #### [facility] [address] [place] [address] Dr. Cecilio Gale WBC 4.7 103/ul Normal 4.0-11.0 [facility] Comment on above: Performed By: #### F T4, VITAD, FETIBC, FERR #### [facility] [address] [place] [address] Dr. Cecilio Gale CULTURE URINEon 01-11-2023 CULTURE URINE Culture Observations: LIGHT GROWTH OF MIXED GENITAL CAMERON. NO POTENTIAL PATHOGENS SEEN. Normal [facility] Comment on above: Performed By: #### F T4, VITAD, FETIBC, FERR #### [facility] [address] [address] [address] Cecilio Gale FERRITINon 01-11-2023 Ferritin [Mass/Vol] 132.0 ng/mL Normal 8.0-252.0 [facility] Comment on above: Performed By: #### F T4, VITAD, FETIBC, FERR #### [facility] [address] [address] [address] Cecilio Gale FREE T3on 01-11-2023 FREE T3 2.03 pg/mlL Critically low 2.18-3.98 [facility] Comment on above: Performed By: #### F T4, VITAD, FETIBC, FERR #### [facility] [address] [place] [address] Dr. Cecilio Gale FREE T4on 01-11-2023 Free T4 [Mass/Vol] 0.82 ng/dL Normal 0.76-1.46 [facility] Comment on above: Performed By: #### F T4, VITAD, FETIBC, FERR #### [facility] [address] [place] [address] Dr. Cecilio Gale GLYCOHEMOGLOBIN A1Con 2022 ADA RECOMMENDATION SEE BELOW Normal [facility] Comment on above: Result Comment: ADA RECOMMENDED LIMIT 4.0 - 6.0 ADA THERAPEUTIC TARGET < 7.0 ACTION SUGGESTED > 7.0 Performed By: #### F T4, VITAD, FETIBC, FERR #### [facility] [address] [address] [address] Cecilio Gale Glucose [Mass/Vol] 103 mg/dL Normal [facility] Comment on above: Performed By: #### F T4, VITAD, FETIBC, FERR #### [facility] [address] [place] [address] Dr. Cecilio Gale HbA1c (Bld) [Mass fraction] 5.2 % Normal 4.5-6.2 [facility] Comment on above: Performed By: #### F T4, VITAD, FETIBC, FERR #### [facility] [address] [address] [address] Cecilio Gale IRON AND TIBCon 01-11-2023 % SATURATION 44.6 % Normal [facility] Comment on above: Performed By: #### F T4, VITAD, FETIBC, FERR #### [facility] [address] [address] [address] Cecilio Gale Iron [Mass/Vol] 121.0 ug/dL Normal 50.0-170.0 [facility] Comment on above: Performed By: #### F T4, VITAD, FETIBC, FERR #### [facility] [address] [address] [address] Cecilio Gale TIBC DIRECT 271.0 ug/dL Normal 250.0-450.0 [facility] Comment on above: Performed By: #### F T4, VITAD, FETIBC, FERR #### [facility] [address] [place] [address] Dr. Cecilio Gale LIPID PROFILEon 01-11-2023 CHOL-HDL RATIO NORM SEE BELOW Normal [facility] Comment on above: Result Comment: 3.3 - 4.4 LOW RISK 4.4 - 7.1 AVERAGE RISK 7.1 - 11.0 MODERATE RISK >11.0 HIGH RISK Performed By: #### F T4, VITAD, FETIBC, FERR #### [facility] [address] [place] [address] Dr. Cecilio Gale Cholesterol [Mass/Vol] 216 mg/dL Critically high <=200 [facility] Comment on above: Performed By: #### F T4, VITAD, FETIBC, FERR #### [facility] [address] [address] [address] Cecilio Gale Cholesterol in HDL [Mass/Vol] 96 mg/dL Critically high 40-60 [facility] Comment on above: Performed By: #### F T4, VITAD, FETIBC, FERR #### [facility] [address] [address] [address] Cceilio Gale Cholesterol in LDL [Mass/Vol] 103.0 mg/dL Normal [facility] Comment on above: Performed By: #### F T4, VITAD, FETIBC, FERR #### [facility] [address] [address] [address] Cecilio Gale Cholesterol.total/Cho lesterol in HDL [Mass ratio] 2.3 {ratio} Normal [facility] Comment on above: Performed By: #### F T4, VITAD, FETIBC, FERR #### [facility] [address] [address] [address] Cecilio Gale HDL NORMAL > or = 60 mg/dl - LOW CARDIOVASCULAR RISK <40 mg/dl - HIGH CARDIOVASCULAR RISK Normal [facility] Comment on above: Performed By: #### F T4, VITAD, FETIBC, FERR #### [facility] [address] [place] [address] Dr. Cecilio Gale LDL CALC NORMAL SEE BELOW Normal [facility] Comment on above: Result Comment: <100 mg/dl OPTIMAL 100 - 129 mg/dl NEAR OR ABOVE OPTIMAL 130 - 159 mg/dl BORDERLINE HIGH 160 - 189 mg/dl HIGH >190 mg/dl VERY HIGH Performed By: #### F T4, VITAD, FETIBC, FERR #### [facility] [address] [place] [address] Dr. Cecilio Gale Triglyceride [Mass/Vol] 86 mg/dL Normal <=150 [facility] Comment on above: Performed By: #### F T4, VITAD, FETIBC, FERR #### [facility] [address] [address] [address] Cecilio Gale VLDL CALC 17.2 mg/dL Normal [facility] Comment on above: Performed By: #### F T4, VITAD, FETIBC, FERR #### [facility] [address] [address] [address] Cecilio Gale PROF 14(COMP METB)on 023 Albumin [Mass/Vol] 3.8 g/dL Normal 3.4-5.0 [facility] Comment on above: Performed By: #### F T4, VITAD, FETIBC, FERR #### [facility] [address] [place] [address] Dr. Cecilio Gale Albumin/Globulin [Mass ratio] 1.0 {ratio} Normal [facility] Comment on above: Performed By: #### F T4, VITAD, FETIBC, FERR #### [facility] [address] [place] [address] Dr. Cecilio Gale ALP [Catalytic activity/Vol] 165 U/L Critically high 46-116 [facility] Comment on above: Performed By: #### F T4, VITAD, FETIBC, FERR #### [facility] [address] [place] [address] Dr. Cecilio Gale ALT [Catalytic activity/Vol] 24 U/L Normal 14-59 [facility] Comment on above: Performed By: #### F T4, VITAD, FETIBC, FERR #### [facility] [address] [place] [address] Dr. Cecilio Gale Anion gap [Moles/Vol] 14.6 mmol/L Normal [facility] Comment on above: Performed By: #### F T4, VITAD, FETIBC, FERR #### [facility] [address] [place] [address] Dr. Cecilio Gale AST [Catalytic activity/Vol] 19 U/L Normal 15-37 [facility] Comment on above: Performed By: #### F T4, VITAD, FETIBC, FERR #### [facility] [address] [place] [address] Dr. Cecilio Gale Bilirubin [Mass/Vol] 0.3 mg/dL Normal 0.2-1.0 [facility] Comment on above: Performed By: #### F T4, VITAD, FETIBC, FERR #### [facility] [address] [place] [address] Dr. Cecilio Gale Calcium [Mass/Vol] 8.9 mg/dL Normal 8.5-10.1 [facility] Comment on above: Performed By: #### F T4, VITAD, FETIBC, FERR #### [facility] [address] [place] [address] Dr. Cecilio Gale Chloride [Moles/Vol] 106 mmol/L Normal 98-107 [facility] Comment on above: Performed By: #### F T4, VITAD, FETIBC, FERR #### [facility] [address] [place] [address] Dr. Cecilio Gale CO2 [Moles/Vol] 25.3 mmol/L Normal 21.0-32.0 [facility] Comment on above: Performed By: #### F T4, VITAD, FETIBC, FERR #### [facility] [address] [place] [address] Dr. Cecilio Gale Creatinine [Mass/Vol] 0.72 mg/dL Normal 0.55-1.02 [facility] Comment on above: Performed By: #### F T4, VITAD, FETIBC, FERR #### [facility] [address] [place] [address] Dr. Cecilio Gale EGFR-AF SERBIAN >60 Normal >=60 [facility] Comment on above: Performed By: #### F T4, VITAD, FETIBC, FERR #### [facility] [address] [place] [address] Dr. Cecilio Gale EGFR-NON AF SERBIAN >60 Normal >=60 [facility] Comment on above: Performed By: #### F T4, VITAD, FETIBC, FERR #### [facility] [address] [place] [address] Dr. Cecilio Gale Globulin (S) [Mass/Vol] 3.7 g/dL Normal [facility] Comment on above: Performed By: #### F T4, VITAD, FETIBC, FERR #### [facility] [address] [place] [address] Dr. Cecilio Gale Glucose [Mass/Vol] 112 mg/dL Critically high 74-106 [facility] Comment on above: Performed By: #### F T4, VITAD, FETIBC, FERR #### [facility] [address] [place] [address] Dr. Cecilio Gale Potassium [Moles/Vol] 4.0 mmol/L Normal 3.5-5.1 [facility] Comment on above: Performed By: #### F T4, VITAD, FETIBC, FERR #### [facility] [address] [place] [address] Dr. Cecilio Gale Protein [Mass/Vol] 7.5 g/dL Normal 6.4-8.2 [facility] Comment on above: Performed By: #### F T4, VITAD, FETIBC, FERR #### [facility] [address] [place] [address] Dr. Cecilio Gale Sodium [Moles/Vol] 142 mmol/L Normal 136-145 [facility] Comment on above: Performed By: #### F T4, VITAD, FETIBC, FERR #### [facility] [address] [place] [address] Dr. Cecilio Gale Urea nitrogen [Mass/Vol] 9.0 mg/dL Normal 7.0-18.0 [facility] Comment on above: Performed By: #### F T4, VITAD, FETIBC, FERR #### [facility] [address] [place] [address] Dr. Cecilio Gale Urea nitrogen/Creatinine [Mass ratio] 12.5 mg/mg Normal [facility] Comment on above: Performed By: #### F T4, VITAD, FETIBC, FERR #### [facility] [address] [place] [address] Dr. Cecilio Gale TSHon 01-11-2023 TSH 1.685 uIU/mL Normal 0.358-3.740 [facility] Comment on above: Performed By: #### F T4, VITAD, FETIBC, FERR #### [facility] [address] [place] [address] Dr. Cecilio Gale UA RANDOM W/MICROSCOPICon BACTERIA NONE SEEN Normal NONE SEEN [facility] Comment on above: Performed By: #### F T4, VITAD, FETIBC, FERR #### [facility] [address] [place] [address] Dr. Cecilio Gale Bilirubin Ql (U) Negative Normal NEGATIVE [facility] Comment on above: Performed By: #### F T4, VITAD, FETIBC, FERR #### [facility] [address] [address] [address] Cecilio Gale CAST NONE SEEN Normal NONE SEEN [facility] Comment on above: Performed By: #### F T4, VITAD, FETIBC, FERR #### [facility] [address] [place] [address] Dr. Cecilio Gale Clarity (U) CLEAR Normal CLEAR [facility] Comment on above: Performed By: #### F T4, VITAD, FETIBC, FERR #### [facility] [address] [address] [address] Cecilio Gale Color (U) LT. YELLOW Normal YELLOW [facility] Comment on above: Performed By: #### F T4, VITAD, FETIBC, FERR #### [facility] [address] [place] [address] Dr. Cecilio Gale Crystals LM Nom (Urine sed) NONE SEEN Normal NONE SEEN [facility] Comment on above: Performed By: #### F T4, VITAD, FETIBC, FERR #### [facility] [address] [place] [address] Dr. Cecilio Gale Epithelial cells LM Ql (Urine sed) FEW Abnormal NONE SEEN /RARE [facility] Comment on above: Performed By: #### F T4, VITAD, FETIBC, FERR #### [facility] [address] [place] [address] Dr. Cecilio Gale Glucose Ql (U) Negative Normal NEGATIVE [facility] Comment on above: Performed By: #### F T4, VITAD, FETIBC, FERR #### [facility] [address] [place] [address] Dr. Cecilio Gale Hemoglobin Ql (U) Negative Normal NEGATIVE [facility] Comment on above: Performed By: #### F T4, VITAD, FETIBC, FERR #### [facility] [address] [place] [address] Dr. Cecilio Gale Ketones Ql (U) Negative Normal NEGATIVE [facility] Comment on above: Performed By: #### F T4, VITAD, FETIBC, FERR #### [facility] [address] [place] [address] Dr. Cecilio Gale LEUKOCYTES Negative Normal NEGATIVE [facility] Comment on above: Performed By: #### F T4, VITAD, FETIBC, FERR #### [facility] [address] [place] [address] Dr. Cecilio Gale MUCOUS NONE SEEN Normal NONE SEEN [facility] Comment on above: Performed By: #### F T4, VITAD, FETIBC, FERR #### [facility] [address] [place] [address] Dr. Cecilio Gale Nitrite Ql (U) Negative Normal NEGATIVE [facility] Comment on above: Performed By: #### F T4, VITAD, FETIBC, FERR #### [facility] [address] [place] [address] Dr. Cecilio Gale pH (U) 7.5 [pH] Normal 5-9 [facility] Comment on above: Performed By: #### F T4, VITAD, FETIBC, FERR #### [facility] [address] [place] [address] Dr. Cecilio Gale RBC NONE SEEN Abnormal 0-2 [facility] Comment on above: Performed By: #### F T4, VITAD, FETIBC, FERR #### [facility] [address] [place] [address] Dr. Cecilio Gale SPEC GRAVITY 1.015 Normal 1.005-<=1.025 [facility] Comment on above: Performed By: #### F T4, VITAD, FETIBC, FERR #### [facility] [address] [place] [address] Dr. Cecilio Gale UA PROTEIN Negative Normal NEGATIVE/ TRACE [facility] Comment on above: Performed By: #### F T4, VITAD, FETIBC, FERR #### [facility] [address] [place] [address] Dr. Cecilio Gale Urobilinogen Qn (U) 0.2 {Anita'U}/dL Normal 0.2 - 1. 0 [facility] Comment on above: Performed By: #### F T4, VITAD, FETIBC, FERR #### [facility] [address] [place] [address] Dr. Cecilio Gale WBC NONE SEEN Normal NONE SEEN [facility] Comment on above: Performed By: #### F T4, VITAD, FETIBC, FERR #### [facility] [address] [place] [address] Dr. Cecilio Gale VITAMIN D 25 OHon 01-11-2023 VIT D 25-OH 60.7 ng/mL Normal [facility] Comment on above: Performed By: #### F T4, VITAD, FETIBC, FERR #### [facility] [address] [place] [address] Dr. Cecilio Gale VIT D RANGES SEE BELOW Normal [facility] Comment on above: Result Comment: <20 ng/mL Vit D deficient 20 - <30 ng/mL Vit D insufficient 30 - 100 ng/mL Vit D sufficient >100 ng/mL Potential Toxicity Performed By: #### F T4, VITAD, FETIBC, FERR #### [facility] [address] [place] [address] Dr. Cecilio Gale LACOSAMIDEon 10-14-2022 Lacosamide 5.4 ug/mL Normal 5.0-10.0 [facility] Comment on above: Result Comment: This test was developed and its performance characteristics determined by [employer]. It has not been cleared or approved by the Food and Drug Administration. Limit of Detection 0.5 . Mean plasma concentrations following maintenance dose 200 mg/day 4.99 +/- 2.51 ug/mL 400 mg/day 9.35 +/- 4.22 ug/mL 600 mg/day 12.46 +/- 5.60 ug/mL Performed By: #### F T4, VITAD, FETIBC, FERR #### [facility] [address] [place] [address] Dr. Cecilio Gale LEVETIRACETAM, SERUM OR PLAS MAon 10-12-2022 Levetiracetam, S 26.4 ug/mL Normal 10.0-40.0 [facility] Comment on above: Performed By: #### F T4, VITAD, FETIBC, FERR #### [facility] [address] [place] [address] Dr. Cecilio Gale TEGRETOLon 10-08-2022 TEGRETOL <0.5 Critically low 4.0-12.0 [facility] Comment on above: Performed By: #### C ARB #### [facility] [address] [address] [address] Cecilio Gale General Surgery Office/Clini c [...] 50,000 intl units (1.25 mg) oral capsule, 19226 International_Unit= 1 cap(s), Oral, qWeek Allergies Depakote [...] mRNA BNT-162b2 vax 01/17/2021 Given Prophylaxis Normal [facility] Comment on above: Result Comment: Elec tronically Signed By: MOMO CHAND, Kerry Castelan\.br\Date and Time Signed: 09/27/22 18:54 EST Ambulatory Visit Summaryon 11-22-2021 Ambulatory Visit Summary MIKEY MONTEZ :1965 [...] neoplasm of colon Vitamin D deficiency Normal [facility] Reminderson 09-22-2022 Reminders - From: Delmy Rebollar LPN To: N - Clinical; Sent: 09/22/2022 15:29:30 EST Show up: 08/09/2025 07:00:00 EDT Subject: colonoscopy recall Due Date/Time: 09/09/2025 07:00:00 EST Reminder/Recall Patient is due for colonoscopy 09/09/2025 due to history of tubular adenoma. Normal [facility] Pathology Noteon 09-11-2022 Pathology Note [id number] #1.00CD:127 Normal [facility] Outside Colonoscopyon 2021 Outside Colonoscopy [id number] #1.00CD:127 Normal [facility] Lab Reportson 09-08-2022 Lab Reports [id number] #1.00CD:127 Normal [facility] Covid-19 PCR ([facility])on 08-10 SARS-CoV-2 (COVID-19) RNA CAL+probe Ql (Unsp spec) Not detected Normal NOT DETECTED [facility] Comment on above: Result Comment: This test is not yet approved or cleared by the [place] FDA. When there are no FDA-approved or cleared tests available, and other criteria are met, FDA can make tests available under an emergency access mechanism called an Emergency Use Authorization (EUA). The EUA for this test is supported by the [place] of Health and Human Service's (HHS's) declaration [...] consistent with SARS-CoV-2. Performed By: #### [facility] #### [facility] [address] [place] [address] Dr. Cecilio Gale Pre-Certification Formon Pre-Certification Form [id number] #1.00CD:127 Normal [facility] CBC W Auto Differential pane l (Bld)on 08-21-2022 Basophils (Bld) [#/Vol] 0.05 10*3/uL Normal <0.[address] [facility] Comment on above: Order Comment: Speci men Type: BLOOD SPECIMEN Ordering Facility: [facility] Address: [address] [place] [address] Performed By: #### 5 7021-8 #### [facility] CLIA [id number] [address] [place] [address]2635 Basophils/100 WBC (Bld) 0.8 % Normal [facility] Comment on above: Order Comment: Speci men Type: BLOOD SPECIMEN Ordering Facility: [facility] Address: [address] [place] [address] Performed By: #### 5 7021-8 #### [facility] CLIA [id number] [address] [place] [address]20 Differential cell count method Nom (Bld) Auto Normal [facility] Comment on above: Order Comment: Speci men Type: BLOOD SPECIMEN Ordering Facility: [facility] Address: [address] [place] [address] Performed By: #### 5 7021-8 #### [facility] CLIA [id number] [address] [place] [address]35 Eosinophils (Bld) [#/Vol] 10*3/uL Normal <0.[address] [facility] Comment on above: Order Comment: Speci men Type: BLOOD SPECIMEN Ordering Facility: [facility] Address: [address] [place] [address] Performed By: #### 5 7021-8 #### [facility] CLIA [id number] [address] [place] [address] 76000 Eosinophils/100 WBC (Bld) 0.0 % Normal [facility] Comment on above: Order Comment: Speci men Type: BLOOD SPECIMEN Ordering Facility: [facility] Address: [address] [place] [address] Performed By: #### 5 7021-8 #### [facility] CLIA [id number] [address] [place] [address] 00233 Erythrocyte distribution width (RBC) [Ratio] 12.1 % Normal 11.5-15.[address] [facility] Comment on above: Order Comment: Speci men Type: BLOOD SPECIMEN Ordering Facility: [facility] Address: [address] [place] [address] Performed By: #### 5 7021-8 #### [facility] CLIA [id number] [address] [place] [address] 38669 Hematocrit (Bld) [Volume fraction] 40.8 % Normal 36.0-46.[address] [facility] Comment on above: Order Comment: Speci men Type: BLOOD SPECIMEN Ordering Facility: [facility] Address: [address] [place] [address] Performed By: #### 5 7021-8 #### [facility] CLIA [id number] [address] [place] [address] 26163 Hemoglobin (Bld) [Mass/Vol] 14.3 g/dL Normal 11.5-15.[address] [facility] Comment on above: Order Comment: Speci men Type: BLOOD SPECIMEN Ordering Facility: [facility] Address: [address] [place] [address] Performed By: #### 5 7021-8 #### [facility] CLIA [id number] [address] [place] [address] 07309 IMMATURE GRAN % 0.2 % Normal [facility] Comment on above: Order Comment: Speci men Type: BLOOD SPECIMEN Ordering Facility: [facility] Address: [address] [place] [address] Performed By: #### 5 7021-8 #### [facility] CLIA [id number] [address] [place] [address] 84946 IMMATURE GRAN ABS <0.03 Normal <0.10 [facility] Comment on above: Order Comment: Speci men Type: BLOOD SPECIMEN Ordering Facility: [facility] Address: [address] [place], [place] [address] Performed By: #### 5 7021-8 #### [facility] CLIA [id number] [address] [place] [address] 28897 Lymphocytes (Bld) [#/Vol] 2.64 10*3/uL Normal 1.00-4.[address] [facility] Comment on above: Order Comment: Speci men Type: BLOOD SPECIMEN Ordering Facility: [facility] Address: [address] [place] [address] Performed By: #### 5 7021-8 #### [facility] CLIA [id number] [address] [place] [address] 15994 Lymphocytes/100 WBC (Bld) 41.4 % Normal [facility] Comment on above: Order Comment: Speci men Type: BLOOD SPECIMEN Ordering Facility: [facility] Address: [address] [place] [address] Performed By: #### 5 7021-8 #### [facility] CLIA [id number] [address] [place] [address] 41824 MCH (RBC) [Entitic mass] 33.2 pg Normal 26.0-34.[address] [facility] Comment on above: Order Comment: Speci men Type: BLOOD SPECIMEN Ordering Facility: [facility] Address: [address] [place] [address] Performed By: #### 5 7021-8 #### [facility] CLIA [id number] [address] [place] [address] 80926 MCHC (RBC) [Mass/Vol] 35.0 g/dL Normal 30.5-36.0 [facility] Comment on above: Order Comment: Speci men Type: BLOOD SPECIMEN Ordering Facility: [facility] Address: [address] [place] [address] Performed By: #### 5 7021-8 #### [facility] CLIA [id number] [address] [place] [address] 79439 MCV (RBC) [Entitic vol] 94.7 fL Normal 80.0-100.[address] [facility] Comment on above: Order Comment: Speci men Type: BLOOD SPECIMEN Ordering Facility: [facility] Address: [facility] [address] Performed By: #### 5 7021-8 #### [facility] CLIA [id number] [address] [place] [address] 33201 Monocytes (Bld) [#/Vol] 0.61 10*3/uL Normal <0.[address] [facility] Comment on above: Order Comment: Speci men Type: BLOOD SPECIMEN Ordering Facility: [facility] Address: [address] [place], [place] [address] Performed By: #### 5 7021-8 #### [facility] CLIA [id number] [address] [place] [address] 85294 Monocytes/100 WBC (Bld) 9.6 % Normal [facility] Comment on above: Order Comment: Speci men Type: BLOOD SPECIMEN Ordering Facility: [facility] Address: [address] [place], [place] [address] Performed By: #### 5 7021-8 #### [facility] CLIA [id number] [address] [place] [address] 44504 Neutrophils (Bld) [#/Vol] 3.06 10*3/uL Normal 1.45-7.[address] [facility] Comment on above: Order Comment: Speci men Type: BLOOD SPECIMEN Ordering Facility: [facility] Address: [address] Performed By: #### 5 7021-8 #### [facility] CLIA [id number] [address] [place] [address] 24182 Neutrophils/100 WBC (Bld) 48.0 % Normal [facility] Comment on above: Order Comment: Speci men Type: BLOOD SPECIMEN Ordering Facility: [facility] Address: [address] [place], [place] [address] Performed By: #### 5 7021-8 #### [facility] CLIA [id number] [address] [place] [address] Nucleated RBC (Bld) [#/Vol] 10*3/uL Normal <0.[address] [facility] Comment on above: Order Comment: Speci men Type: BLOOD SPECIMEN Ordering Facility: [facility] Address: [address] [place] [address] Performed By: #### 5 7021-8 #### [facility] CLIA [id number] [address] [place] [address] 86906 Nucleated RBC/100 WBC (Bld) [Ratio] 0.0 /100 WBC Normal [facility] Comment on above: Order Comment: Speci men Type: BLOOD SPECIMEN Ordering Facility: [facility] Address: [address] [place] [address] Performed By: #### 5 7021-8 #### [facility] CLIA [id number] [address] [place] [address] 20647 Platelet mean volume (Bld) [Entitic vol] 8.3 fL Low 9.0-12.[address] [facility] Comment on above: Order Comment: Speci men Type: BLOOD SPECIMEN Ordering Facility: [facility] Address: [address] [place] [address] Performed By: #### 5 7021-8 #### [facility] CLIA [id number] [address] [place] [address] 71018 Platelets (Bld) [#/Vol] 345 10*3/uL Normal 150-[address] [facility] Comment on above: Order Comment: Speci men Type: BLOOD SPECIMEN Ordering Facility: [facility] Address: [address] [place] [address] Performed By: #### 5 7021-8 #### [facility] CLIA [id number] [address] [place] [address] 71049 RBC (Bld) [#/Vol] 4.31 10*6/uL Normal 3.90-5.20 [facility] Comment on above: Order Comment: Speci men Type: BLOOD SPECIMEN Ordering Facility: [facility] Address: [address] [place] [address] Performed By: #### 5 7021-8 #### [facility] CLIA [id number] [address] [place] [address] 43896 WBC (Bld) [#/Vol] 6.37 10*3/uL Normal 3.70-11.00 [facility] Comment on above: Order Comment: Speci men Type: BLOOD SPECIMEN Ordering Facility: [facility] Address: [address] [place] [address] Performed By: #### 5 7021-8 #### [facility] CLIA [id number] [address] [place] [address] 20671 Comprehensive metabolic 2000 panelon 08-21-2022 Albumin [Mass/Vol] 4.3 g/dL Normal 3.9-4.9 [facility] Comment on above: Order Comment: Speci men Type: BLOOD SPECIMEN Ordering Facility: [facility] Address: [address] [place] [address] Performed By: #### 2 4323-8 #### [facility] CLIA [id number] [address] [place] [address] 56127 ALP [Catalytic activity/Vol] 167 U/L High 34-[address] [facility] Comment on above: Order Comment: Speci men Type: BLOOD SPECIMEN Ordering Facility: [facility] Address: [address] [place], [place] [address] Performed By: #### 2 4323-8 #### [facility] CLIA [id number] [address] [place] [address] 66521 ALT [Catalytic activity/Vol] 13 U/L Normal 7-[address] [facility] Comment on above: Order Comment: Speci men Type: BLOOD SPECIMEN Ordering Facility: [facility] Address: [address] [place] [address] Performed By: #### 2 4323-8 #### [facility] CLIA [id number] [address] [place] [address] Anion gap [Moles/Vol] 9 mmol/L Normal 9-18 [facility] Comment on above: Order Comment: Speci men Type: BLOOD SPECIMEN Ordering Facility: [facility] Address: [address] [place] [address] Performed By: #### 2 4323-8 #### [facility] CLIA [id number] [address] [place] [address] AST [Catalytic activity/Vol] 16 U/L Normal 13-[address] [facility] Comment on above: Order Comment: Speci men Type: BLOOD SPECIMEN Ordering Facility: [facility] Address: [address] [place] [address] Performed By: #### 2 4323-8 #### [facility] CLIA [id number] [address] [place] [address] 86456 Bilirubin [Mass/Vol] 0.3 mg/dL Normal 0.2-1.3 [facility] Comment on above: Order Comment: Speci men Type: BLOOD SPECIMEN Ordering Facility: [facility] Address: [address] [place] [address] Performed By: #### 2 4323-8 #### [facility] CLIA [id number] [address] [place] [address] 05713 Calcium [Mass/Vol] 9.5 mg/dL Normal 8.5-10.2 [facility] Comment on above: Order Comment: Speci men Type: BLOOD SPECIMEN Ordering Facility: [facility] Address: [address] [place] [address] Performed By: #### 2 4323-8 #### [facility] CLIA [id number] [address] [place] [address] 38108 Chloride [Moles/Vol] 98 mmol/L Normal 97-105 [facility] Comment on above: Order Comment: Speci men Type: BLOOD SPECIMEN Ordering Facility: [facility] Address: [address] [place] [address] Performed By: #### 2 4323-8 #### [facility] CLIA [id number] [address] [place] [address] CO2 [Moles/Vol] 28 mmol/L Normal 22-[address] [facility] Comment on above: Order Comment: Speci men Type: BLOOD SPECIMEN Ordering Facility: [facility] Address: [address] [place] [address] Performed By: #### 2 4323-8 #### [facility] CLIA [id number] [address] [place] [address] 36419 Creatinine [Mass/Vol] 0.74 mg/dL Normal 0.58-0.96 [facility] Comment on above: Order Comment: Speci men Type: BLOOD SPECIMEN Ordering Facility: [facility] Address: [address] [place] [address] Performed By: #### 2 4323-8 #### [facility] CLIA [id number] [address] [place] [address] 48180 ESTIMATED GLOMERULAR FILTRATION RATE 96 mL/min/1.73m??? Normal >=[address] [facility] Comment on above: Order Comment: Speci men Type: BLOOD SPECIMEN Ordering Facility: [facility] Address: [address] [place] [address] Result Comment: Domonique mated Glomerular Filtration Rate [...] GFR. Performed By: #### 2 4323-8 #### [facility] CLIA [id number] [address] [place] [address] 98219 Glucose [Mass/Vol] 110 mg/dL High 74-99 [facility] Comment on above: Order Comment: Speci men Type: BLOOD SPECIMEN Ordering Facility: [facility] Address: [address] [place] [address] Result Comment: The [place] Diabetes Association (ADA) provides guidance for cutoff [...] Standards of Medical Care in Diabetes 2016, [place] Diabetes Association. Diabetes Care. 2016.39(Suppl 1). Performed By: #### 2 4323-8 #### [facility] CLIA [id number] [address] [place] [address] 05348 Potassium [Moles/Vol] 4.6 mmol/L Normal 3.7-5.1 [facility] Comment on above: Order Comment: Speci men Type: BLOOD SPECIMEN Ordering Facility: [facility] Address: [address] [address] Performed By: #### 2 4323-8 #### [facility] CLIA [id number] [address] [place] [address] 73027 Protein [Mass/Vol] 7.1 g/dL Normal 6.3-8.0 [facility] Comment on above: Order Comment: Speci men Type: BLOOD SPECIMEN Ordering Facility: [facility] Address: [address] [address] Performed By: #### 2 4323-8 #### [facility] CLIA [id number] [address] [place] [address] 90765 Sodium [Moles/Vol] 135 mmol/L Low 136-144 [facility] Comment on above: Order Comment: Speci men Type: BLOOD SPECIMEN Ordering Facility: [facility] Address: [address] [address] Performed By: #### 2 4323-8 #### [facility] CLIA [id number] [address] [place] [address] Urea nitrogen [Mass/Vol] 10 mg/dL Normal 7-[address] [facility] Comment on above: Order Comment: Speci men Type: BLOOD SPECIMEN Ordering Facility: [facility] Address: [address] [place] [address] Performed By: #### 2 4323-8 #### [facility] CLIA [id number] [address] [place] [address] Ferritin SerPl-mCncon 2021 Ferritin [Mass/Vol] 196.0 ng/mL Normal 14.7-205.1 [facility] Comment on above: Order Comment: Speci men Type: BLOOD SPECIMEN Ordering Facility: [facility] Address: [address] [place] [address] Performed By: #### 5 0190-8, 2275-4 #### [facility] CLIA [id number] [address] [place] [address] [place] Iron and Iron binding capaci ty panelon 08-21-2022 Iron [Mass/Vol] 133 ug/dL Normal 41-[address] [facility] Comment on above: Order Comment: Speci men Type: BLOOD SPECIMEN Ordering Facility: [facility] Address: [address] [place] [address] Performed By: #### 5 0190-8, 2275-4 #### [facility] CLIA [id number] [address] [place] [address] [place] Iron binding capacity [Mass/Vol] 280 ug/dL Normal 232-[address] [facility] Comment on above: Order Comment: Speci men Type: BLOOD SPECIMEN Ordering Facility: [facility] Address: [address] [place], [place] [address] Performed By: #### 5 0190-8, 2275-4 #### [facility] CLIA [id number] [address] [place] [address] [place] Iron/TIBC [Molar ratio] 47.5 % Normal 15.0-57.[address] [facility] Comment on above: Order Comment: Speci men Type: BLOOD SPECIMEN Ordering Facility: [facility] Address: [address] [place] [address] [place] [address] Performed By: #### 5 0190-8, 2276-4 #### [facility] CLIA [id number] [address] [place] [address] [place] Consent for Procedure/Surger yon 08-05-2022 Consent for Procedure/Surgery [id number] #1.00CD:127 Normal [facility] Ambulatory Visit Summaryon 0 08-04-2022 Ambulatory Visit Summary MIKEY MONTEZ Anderson :1965 Visit Date:08/04/2022 Ambulatory Visit Instructions Your [...] neoplasm of colon Vitamin D deficiency Normal [facility] Comprehensive metabolic 2000 panelon 07-30-2022 Albumin [Mass/Vol] 4.4 g/dL 3.9 - 4.9 g/dL [facility] ALP [Catalytic activity/Vol] 166 U/L High 34 - 123 U/L [facility] ALT [Catalytic activity/Vol] 18 U/L 7 - 38 U/L [facility] Anion gap [Moles/Vol] 11 mmol/L 9 - 18 mmol/L [facility] AST [Catalytic activity/Vol] 21 U/L 13 - 35 U/L [facility] Bilirubin [Mass/Vol] 0.4 mg/dL 0.2 - 1 .3 mg/dL [facility] Calcium [Mass/Vol] 9.5 mg/dL 8.5 - 10. 2 mg/dL [facility] Chloride [Moles/Vol] 98 mmol/L 97 - 10 5 mmol/L [facility] CO2 [Moles/Vol] 25 mmol/L 22 - 30 mmol/L [facility] Creatinine [Mass/Vol] 0.66 mg/dL 0.58 - 0.96 mg/dL [facility] Estimated Glomerular Filtration Rate 104 mL/min/1.73m >=60 mL/min/1.73m [facility] Glucose [Mass/Vol] 91 mg/dL 74 - 99 mg/dL [facility] Potassium [Moles/Vol] 4.8 mmol/L 3.7 - 5.1 mmol/L [facility] Protein [Mass/Vol] 7.3 g/dL 6.3 - 8.0 g/dL [facility] Sodium [Moles/Vol] 134 mmol/L Low 136 - 144 mmol/L [facility] Urea nitrogen [Mass/Vol] 8 mg/dL 7 - 21 mg/dL [facility] FERRITIN BLDon 07-30-2022 Ferritin [Mass/Vol] 176.0 ng/mL 14.7 - 2 05.1 ng/mL [facility] Iron and Iron binding capaci ty panelon 07-30-2022 Iron [Mass/Vol] 149 ug/dL 41 - 186 ug/dL [facility] Iron binding capacity [Mass/Vol] 273 ug/dL 232 - 386 ug/dL [facility] Iron/TIBC [Molar ratio] 54.6 % 15.0 - 57.0 % [facility] CBC W Auto Differential pane l (Bld)on 07-29-2022 Basophils (Bld) [#/Vol] 0.05 10*3/uL Normal <0.[address] [facility] Comment on above: Order Comment: Speci men Type: BLOOD SPECIMEN Ordering Facility: [facility] Address: [address] [place] [address] Performed By: #### 5 7021-8 #### [facility] CLIA [id number] [address] [place] [address] 65510 Basophils/100 WBC (Bld) 0.9 % Normal [facility] Comment on above: Order Comment: Speci men Type: BLOOD SPECIMEN Ordering Facility: [facility] Address: [address] [address] Performed By: #### 5 7021-8 #### [facility] CLIA [id number] [address] [place] [address] 94575 Differential cell count method Nom (Bld) Auto Normal [facility] Center Comment on above: Order Comment: Speci men Type: BLOOD SPECIMEN Ordering Facility: [facility] Address: [facility] [address] Performed By: #### 5 7021-8 #### [facility] CLIA [id number] [address] [place] [address]001 Eosinophils (Bld) [#/Vol] 10*3/uL Normal <0.[address] [facility] Comment on above: Order Comment: Speci men Type: BLOOD SPECIMEN Ordering Facility: [facility] Address: [address] [place], [place] [address] Performed By: #### 5 7021-8 #### [facility] CLIA [id number] [address] [place] [address] 08115 Eosinophils/100 WBC (Bld) 0.0 % Normal [facility] Comment on above: Order Comment: Speci men Type: BLOOD SPECIMEN Ordering Facility: [facility] Address: [address] [place], [place] [address] Performed By: #### 5 7021-8 #### [facility] CLIA [id number] [address] [place] [address] 93409 Erythrocyte distribution width (RBC) [Ratio] 12.1 % Normal 11.5-15.[address] [facility] Comment on above: Order Comment: Speci men Type: BLOOD SPECIMEN Ordering Facility: [facility] Address: [address] [place], [place] [address] Performed By: #### 5 7021-8 #### [facility] CLIA [id number] [address] [place] [address] 21539 Hematocrit (Bld) [Volume fraction] 41.6 % Normal 36.0-46.[address] [facility] Comment on above: Order Comment: Speci men Type: BLOOD SPECIMEN Ordering Facility: [facility] Address: [address] [place], [place] [address] Performed By: #### 5 7021-8 #### [facility] CLIA [id number] [address] [place] [address] Hemoglobin (Bld) [Mass/Vol] 14.5 g/dL Normal 11.5-15.[address] [facility] Comment on above: Order Comment: Speci men Type: BLOOD SPECIMEN Ordering Facility: [facility] Address: [address] [place] [address] Performed By: #### 5 7021-8 #### [facility] CLIA [id number] [address] [place] [address] 24582 IMMATURE GRAN % 0.3 % Normal [facility] Comment on above: Order Comment: Speci men Type: BLOOD SPECIMEN Ordering Facility: [facility] Address: [address] [place] [address] Performed By: #### 5 7021-8 #### [facility] CLIA [id number] [address] [place] [address] 42745 IMMATURE GRAN ABS <0.03 Normal <0.10 [facility] Comment on above: Order Comment: Speci men Type: BLOOD SPECIMEN Ordering Facility: [facility] Address: [address] [place] [address] Performed By: #### 5 7021-8 #### [facility] CLIA [id number] [address] [place] [address] 04724 Lymphocytes (Bld) [#/Vol] 2.09 10*3/uL Normal 1.00-4.[address] [facility] Comment on above: Order Comment: Speci men Type: BLOOD SPECIMEN Ordering Facility: [facility] Address: [address] [place] [address] Performed By: #### 5 7021-8 #### [facility] CLIA [id number] [address] [place] [address] 24497 Lymphocytes/100 WBC (Bld) 36.0 % Normal [facility] Comment on above: Order Comment: Speci men Type: BLOOD SPECIMEN Ordering Facility: [facility] Address: [address] [place] [address] Performed By: #### 5 7021-8 #### [facility] CLIA [id number] [address] [place] [address] 83169 MCH (RBC) [Entitic mass] 33.0 pg Normal 26.0-34.[address] [facility] Comment on above: Order Comment: Speci men Type: BLOOD SPECIMEN Ordering Facility: [facility] Address: [address] [place] [address] Performed By: #### 5 7021-8 #### [facility] CLIA [id number] [address] [place] [address] 18594 MCHC (RBC) [Mass/Vol] 34.9 g/dL Normal 30.5-36.0 [facility] Comment on above: Order Comment: Speci men Type: BLOOD SPECIMEN Ordering Facility: [facility] Address: [address] [place] [address] Performed By: #### 5 7021-8 #### [facility] CLIA [id number] [address] [place] [address] 05321 MCV (RBC) [Entitic vol] 94.8 fL Normal 80.0-100.[address] [facility] Comment on above: Order Comment: Speci men Type: BLOOD SPECIMEN Ordering Facility: [facility] Address: [address] [place] [address] Performed By: #### 5 7021-8 #### [facility] CLIA [id number] [address] [place] [address] 76303 Monocytes (Bld) [#/Vol] 0.44 10*3/uL Normal <0.[address] [facility] Comment on above: Order Comment: Speci men Type: BLOOD SPECIMEN Ordering Facility: [facility] Address: [address] [place] [address] Performed By: #### 5 7021-8 #### [facility] CLIA [id number] [address] [place] [address] 18124 Monocytes/100 WBC (Bld) 7.6 % Normal [facility] Comment on above: Order Comment: Speci men Type: BLOOD SPECIMEN Ordering Facility: [facility] Address: [address] [place], [place] [address] Performed By: #### 5 7021-8 #### [facility] CLIA [id number] [address] [place] [address] 44902 Neutrophils (Bld) [#/Vol] 3.21 10*3/uL Normal 1.45-7.[address] [facility] Comment on above: Order Comment: Speci men Type: BLOOD SPECIMEN Ordering Facility: [facility] Address: [address] [place], [place] [address] Performed By: #### 5 7021-8 #### [facility] CLIA [id number] [address] [place] [address] 23391 Neutrophils/100 WBC (Bld) 55.2 % Normal [facility] Comment on above: Order Comment: Speci men Type: BLOOD SPECIMEN Ordering Facility: [facility] Address: [address] [place], [place] [address] Performed By: #### 5 7021-8 #### [facility] CLIA [id number] [address] [place] [address] 12922 Nucleated RBC (Bld) [#/Vol] 10*3/uL Normal <0.[address] [facility] Comment on above: Order Comment: Speci men Type: BLOOD SPECIMEN Ordering Facility: [facility] Address: [address] [place], [place] [address] Performed By: #### 5 7021-8 #### [facility] CLIA [id number] [address] [place] [address] 61096 Nucleated RBC/100 WBC (Bld) [Ratio] 0.0 /100 WBC Normal [facility] Comment on above: Order Comment: Speci men Type: BLOOD SPECIMEN Ordering Facility: [facility] Address: [address] [place], [place] [address] Performed By: #### 5 7021-8 #### [facility] CLIA [id number] [address] [place] [address] 54723 Platelet mean volume (Bld) [Entitic vol] 8.6 fL Low 9.0-12.[address] [facility] Comment on above: Order Comment: Speci men Type: BLOOD SPECIMEN Ordering Facility: [facility] Address: [address] [place] [address] Performed By: #### 5 7021-8 #### [facility] CLIA [id number] [address] [place] [address] 22268 Platelets (Bld) [#/Vol] 311 10*3/uL Normal 150-[address] [facility] Comment on above: Order Comment: Speci men Type: BLOOD SPECIMEN Ordering Facility: [facility] Address: [address] [place] [address] Performed By: #### 5 7021-8 #### [facility] CLIA [id number] [address] [place] [address] 28549 RBC (Bld) [#/Vol] 4.39 10*6/uL Normal 3.90-5.20 [facility] Comment on above: Order Comment: Speci men Type: BLOOD SPECIMEN Ordering Facility: [facility] Address: [address] [place] [address] Performed By: #### 5 7021-8 #### [facility] CLIA [id number] [address] [place] [address] 55735 WBC (Bld) [#/Vol] 5.81 10*3/uL Normal 3.70-11.00 [facility] Comment on above: Order Comment: Speci men Type: BLOOD SPECIMEN Ordering Facility: [facility] Address: [address] [place] [address] Performed By: #### 5 7021-8 #### [facility] CLIA [id number] [address] [place] [address] 58771 Abs Immature Gran <0.10 k/uL [facility] Basophils (Bld) [#/Vol] 0.05 10*3/uL <0.11 k/uL [facility] Basophils/100 WBC (Bld) 0.9 % [facility] Differential cell count method Nom (Bld) Auto [facility] Eosinophils (Bld) [#/Vol] <0.46 k/uL [facility] Eosinophils/100 WBC (Bld) 0.0 % [facility] Erythrocyte distribution width (RBC) [Ratio] 12.1 % 11.5 - 15.0 % [facility] Hematocrit (Bld) [Volume fraction] 41.6 % 36.0 - 46.0 % [facility] Hemoglobin (Bld) [Mass/Vol] 14.5 g/dL 11.5 - 15.5 g/dL [facility] Immature Gran % 0.3 % [facility] Lymphocytes (Bld) [#/Vol] 2.09 10*3/uL 1.00 - 4.00 k/uL [facility] Lymphocytes/100 WBC (Bld) 36.0 % [facility] MCH (RBC) [Entitic mass] 33.0 pg 26.0 - 34.0 pg [facility] MCHC (RBC) [Mass/Vol] 34.9 g/dL 30.5 - 36.0 g/dL [facility] MCV (RBC) [Entitic vol] 94.8 fL 80.0 - 100.0 fL [facility] Monocytes (Bld) [#/Vol] 0.44 10*3/uL <0.87 k/uL [facility] Monocytes/100 WBC (Bld) 7.6 % [facility] Neutrophils (Bld) [#/Vol] 3.21 10*3/uL 1.45 - 7.50 k/uL [facility] Neutrophils/100 WBC (Bld) 55.2 % [facility] Nucleated RBC (Bld) [#/Vol] <0.01 k/uL [facility] Nucleated RBC/100 WBC (Bld) [Ratio] 0.0 /100 WBC [facility] Platelet mean volume (Bld) [Entitic vol] 8.6 fL Low 9.0 - 12.7 fL [facility] Platelets (Bld) [#/Vol] 311 10*3/uL 150 - 400 k/uL [facility] RBC (Bld) [#/Vol] 4.39 10*6/uL 3.90 - 5.2 0 m/uL [facility] WBC (Bld) [#/Vol] 5.81 10*3/uL 3.70 - 11. 00 k/uL [facility] CNOVSPon 07-29-2022 CNOVSP Visit (SP) Office ([place]) MIKEY MONTEZ ([id number]) 1965 F Date Time Provider Department 07/29/22 11:00 AM RICCI GARCIA During your visit today, we recorded the following information about you: Temperature Pulse Respiration Blood pressure 97.1 degrees 83/minute 16/minute 152/89 Weight Height 123 kg 1.651 m Ricci Garcia MD 07/30/2022 12:33 PM Signed NAME: Mikey Montez [facility] NO.: [id number] DATE OF SERVICE: July 29, 2022 Referring [...] COLONSCOPY SCR (more content not included)... Normal [facility] Comprehensive metabolic 2000 panelon 07-29-2022 Albumin [Mass/Vol] 4.4 g/dL Normal 3.9-4.9 [facility] Comment on above: Order Comment: Speci men Type: BLOOD SPECIMEN Ordering Facility: [facility] Address: [address] [place] [address] Performed By: #### 2 4323-8 #### [facility] CLIA [id number] [address] [place] [address] [place] ALP [Catalytic activity/Vol] 166 U/L High 34-[address] [facility] Comment on above: Order Comment: Speci men Type: BLOOD SPECIMEN Ordering Facility: [facility] Address: [address] [place] [address] Performed By: #### 2 4323-8 #### [facility] CLIA [id number] [address] [place] [address] [place] ALT [Catalytic activity/Vol] 18 U/L Normal 7-[address] [facility] Comment on above: Order Comment: Speci men Type: BLOOD SPECIMEN Ordering Facility: [facility] Address: [address] [place], [place] [address] Performed By: #### 2 4323-8 #### [facility] CLIA [id number] [address] [place] [address] [place] Anion gap [Moles/Vol] 11 mmol/L Normal 9-18 [facility] Comment on above: Order Comment: Speci men Type: BLOOD SPECIMEN Ordering Facility: [facility] Address: [address] [place], [place] [address] Performed By: #### 2 4323-8 #### [facility] CLIA [id number] [address] [place] [address] [place] AST [Catalytic activity/Vol] 21 U/L Normal 13-[address] [facility] Comment on above: Order Comment: Speci men Type: BLOOD SPECIMEN Ordering Facility: [facility] Address: [address] [place], [place] [address] Performed By: #### 2 4323-8 #### [facility] CLIA [id number] [address] [place] [address] [place] Bilirubin [Mass/Vol] 0.4 mg/dL Normal 0.2-1.3 [facility] Comment on above: Order Comment: Speci men Type: BLOOD SPECIMEN Ordering Facility: [facility] Address: [address] [place], [place] [address] Performed By: #### 2 4323-8 #### [facility] CLIA [id number] [address] [place] [address] [place] Calcium [Mass/Vol] 9.5 mg/dL Normal 8.5-10.2 [facility] Comment on above: Order Comment: Speci men Type: BLOOD SPECIMEN Ordering Facility: [facility] Address: [address] [place], [place] [address] Performed By: #### 2 4323-8 #### [facility] CLIA [id number] [address] [place] [address] [place] Chloride [Moles/Vol] 98 mmol/L Normal 97-105 [facility] Comment on above: Order Comment: Speci men Type: BLOOD SPECIMEN Ordering Facility: [facility] Address: [address] [place] [address] Performed By: #### 2 4323-8 #### [facility] CLIA [id number] [address] [place] [address] [place] CO2 [Moles/Vol] 25 mmol/L Normal 22-[address] [facility] Comment on above: Order Comment: Speci men Type: BLOOD SPECIMEN Ordering Facility: [facility] Address: [address] [place] [address] Performed By: #### 2 4323-8 #### [facility] CLIA [id number] [address] [place] [address] STATES OF [facility] Creatinine [Mass/Vol] 0.66 mg/dL Normal 0.58-0.96 [facility] Comment on above: Order Comment: Speci men Type: BLOOD SPECIMEN Ordering Facility: [facility] Address: [address] [place] [address] Performed By: #### 2 4323-8 #### [facility] CLIA [id number] [address] [place] [address] OF [place] ESTIMATED GLOMERULAR FILTRATION RATE 104 mL/min/1.73m??? Normal >=[address] [facility] Comment on above: Order Comment: Speci men Type: BLOOD SPECIMEN Ordering Facility: [facility] Address: [address] [place] [address] Result Comment: Domonique mated Glomerular Filtration Rate [...] GFR. Performed By: #### 2 4323-8 #### [facility] CLIA [id number] [address] [place] [address] [place] Glucose [Mass/Vol] 91 mg/dL Normal 74-99 [facility] Comment on above: Order Comment: Jesus bundy Type: BLOOD SPECIMEN Ordering Facility: [facility] Address: [address] [place] [address] Result Comment: The Citizen [place] Diabetes Association (ADA) provides guidance for cutoff [...] Standards of Medical Care in Diabetes 2016, Citizen [place] Diabetes Association. Diabetes Care. 2016.39(Suppl 1). Performed By: #### 2 4323-8 #### [facility] CLIA [id number] [address] [place] [address] [place] Potassium [Moles/Vol] 4.8 mmol/L Normal 3.7-5.1 [facility] Comment on above: Order Comment: Jesus bundy Type: BLOOD SPECIMEN Ordering Facility: [facility] Address: [address] [place], [place] [address] Performed By: #### 2 4323-8 #### [facility] CLIA [id number] [address] [place] [address] [place] Protein [Mass/Vol] 7.3 g/dL Normal 6.3-8.0 [facility] Comment on above: Order Comment: Jesus bundy Type: BLOOD SPECIMEN Ordering Facility: [facility] Address: [address] [place] [address] Performed By: #### 2 4323-8 #### [facility] CLIA [id number] [address] [place] [address] [place] Sodium [Moles/Vol] 134 mmol/L Low 136-144 [facility] Comment on above: Order Comment: Speci men Type: BLOOD SPECIMEN Ordering Facility: [facility] Address: [address] [place] [address] Performed By: #### 2 4323-8 #### [facility] CLIA [id number] [address] [place] [address] [place] Urea nitrogen [Mass/Vol] 8 mg/dL Normal 05-[address] [facility] Comment on above: Order Comment: Speci men Type: BLOOD SPECIMEN Ordering Facility: [facility] Address: [address] [place] [address] Performed By: #### 2 4323-8 #### [facility] CLIA [id number] [address] [place] [address] [place] Ferritin SerPl-mCncon 2021 Ferritin [Mass/Vol] 176.0 ng/mL Normal 14.7-205.1 [facility] Comment on above: Order Comment: Speci men Type: BLOOD SPECIMEN Ordering Facility: [facility] Address: [address] [place] [address] Performed By: #### 2 276-4, 72639-8 #### [facility] CLIA [id number] [address] [place] [address] [place] HFE (HEMOCHROMATOSIS)on 07-10 INTERPRETATION (HEMDNA) Normal 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 Disclaimer: This test was developed and its performance characteristics determined by [facility] [place] ([facility] It has not been cleared or approved by the FDA. -[facility] is regulated under CLIA as certified to perform high- complexity testing. This test is used for clinical purposes. It should not be regarded as investigational or for research. Testing and interpretation performed at [facility], [address] [place] [address]. CLIA Number: [id number] As reviewed by Joshua Mendoza, PhD, FAC Performed By: #### H ROSALIE #### [facility] CLIA [id number] [address] [place], [place] [address] [place] [address] [place] Iron and Iron binding capaci ty panelon 07-29-2022 Iron [Mass/Vol] 149 ug/dL Normal 41-[address] [facility] Comment on above: Order Comment: Speci men Type: BLOOD SPECIMEN Ordering Facility: [facility] Address: [address] [place], [place] [address] Performed By: #### 2 276-4, 01279-8 #### [facility] CLIA [id number] [address] [place] [address] [place] Iron binding capacity [Mass/Vol] 273 ug/dL Normal 232-[address] [facility] Comment on above: Order Comment: Speci men Type: BLOOD SPECIMEN Ordering Facility: [facility] Address: [address] [place] [address] Performed By: #### 2 276-4, 39212-6 #### [facility] CLIA [id number] [address] [place] [address] [place] Iron/TIBC [Molar ratio] 54.6 % Normal 15.0-57.[address] [facility] Comment on above: Order Comment: Speci men Type: BLOOD SPECIMEN Ordering Facility: [facility] Address: [address] [place] [address] Performed By: #### 2 276-4, 19963-5 #### [facility] CLIA [id number] [address] [place] [address] [place] UA RANDOM W/MICROSCOPICon BACTERIA NONE SEEN Normal NONE SEEN [facility] Comment on above: Performed By: #### F T4, VITAD, FETIBC, FERR #### [facility] [address] [place] [address] Dr. Cecilio Gale Bilirubin Ql (U) Negative Normal NEGATIVE [facility] Comment on above: Performed By: #### F T4, VITAD, FETIBC, FERR #### [facility] [address] [address] [address] Cecilio Gale CAST NONE SEEN Normal NONE SEEN [facility] Comment on above: Performed By: #### F T4, VITAD, FETIBC, FERR #### [facility] [address] [address] [address] Cecilio Gale Clarity (U) CLEAR Normal CLEAR [facility] Comment on above: Performed By: #### F T4, VITAD, FETIBC, FERR #### [facility] [address] [place] [address] Dr. Cecilio Gale Color (U) LT. YELLOW Normal YELLOW [facility] Comment on above: Performed By: #### F T4, VITAD, FETIBC, FERR #### [facility] [address] [place] [address] Dr. Cecilio Gale Crystals LM Nom (Urine sed) NONE SEEN Normal NONE SEEN [facility] Comment on above: Performed By: #### F T4, VITAD, FETIBC, FERR #### [facility] [address] [place] [address] Dr. Cecilio Gale Epithelial cells LM Ql (Urine sed) FEW Abnormal NONE SEEN /RARE [facility] Comment on above: Performed By: #### F T4, VITAD, FETIBC, FERR #### [facility] [address] [place] [address] Dr. Cecilio Gale Glucose Ql (U) Negative Normal NEGATIVE [facility] Comment on above: Performed By: #### F T4, VITAD, FETIBC, FERR #### [facility] [address] [place] [address] Dr. Cecilio Gale Hemoglobin Ql (U) Negative Normal NEGATIVE [facility] Comment on above: Performed By: #### F T4, VITAD, FETIBC, FERR #### [facility] [address] [place] [address] Dr. Cecilio Gale Ketones Ql (U) Negative Normal NEGATIVE [facility] Comment on above: Performed By: #### F T4, VITAD, FETIBC, FERR #### [facility] [address] [place] [address] Dr. Cecilio Gale LEUKOCYTES Negative Normal NEGATIVE [facility] Comment on above: Performed By: #### F T4, VITAD, FETIBC, FERR #### [facility] [address] [place] [address] Dr. Cecilio Gale MUCOUS NONE SEEN Normal NONE SEEN [facility] Comment on above: Performed By: #### F T4, VITAD, FETIBC, FERR #### [facility] [address] [place] [address] Dr. Cecilio Gale Nitrite Ql (U) Negative Normal NEGATIVE [facility] Comment on above: Performed By: #### F T4, VITAD, FETIBC, FERR #### [facility] [address] [place] [address] Dr. Cecilio Gale pH (U) 7.0 [pH] Normal 5-9 [facility] Comment on above: Performed By: #### F T4, VITAD, FETIBC, FERR #### [facility] [address] [place] [address] Dr. Cecilio Gale RBC NONE SEEN Abnormal 0-2 [facility] Comment on above: Performed By: #### F T4, VITAD, FETIBC, FERR #### [facility] [address] [place] [address] Dr. Cecilio Gale SPEC GRAVITY 1.010 Normal 1.005-<=1.025 [facility] Comment on above: Performed By: #### F T4, VITAD, FETIBC, FERR #### [facility] [address] [place] [address] Dr. Cecilio Gale UA PROTEIN Negative Normal NEGATIVE/ TRACE [facility] Comment on above: Performed By: #### F T4, VITAD, FETIBC, FERR #### [facility] [address] [place] [address] Dr. Cecilio Gale Urobilinogen Qn (U) 0.2 {Anita'U}/dL Normal 0.2 - 1. 0 [facility] Comment on above: Performed By: #### F T4, VITAD, FETIBC, FERR #### [facility] [address] [place] [address] Dr. Cecilio Gale WBC NONE SEEN Normal NONE SEEN [facility] Comment on above: Performed By: #### F T4, VITAD, FETIBC, FERR #### [facility] [address] [place] [address] Dr. Cecilio Gale Physician Referralon 022 Physician Referral [id number] Normal [facility] ALKP ISOENZYMESon 07-10-2022 ALP [Catalytic activity/Vol] 159 U/L Critically high 44-121 [facility] Comment on above: Performed By: #### A LKPISO #### [facility] [address] [address] [address] Ceiclio Gale Bone Fraction: 36 % Normal 14-68 [facility] Comment on above: Performed By: #### A LKPISO #### [facility] [address] [address] [address] Cecilio Gale Intestinal Frac.: 4 % Normal 0-18 [facility] Comment on above: Performed By: #### A LKPISO #### [facility] [address] [address] [address] Cecilio Gale Liver Fraction: 60 % Normal 18-85 [facility] Comment on above: Performed By: #### A LKPISO #### [facility] [address] [address] [address] Cecilio Gale VIT D 25-OH LABCORPon 2021 Vitamin D, 25-Hydroxy 50.4 ng/mL Normal 30.0-100.0 [facility] Comment on above: Result Comment: Millie min D deficiency has been defined by the [place] [employer] and an Endocrine Society practice guideline as a level of serum 25-OH vitamin D less than 20 ng/mL (1,2). The Endocrine Society went on to further define vitamin D insufficiency as a level between 21 and 29 ng/mL (2). 1. IOM ([place] [employer]). 2010. Dietary reference intakes for calcium and D. [place]: The National Academies Press. 2. Sujatha IZQUIERDO, Vaishali HOLLIDAY, Larisa AZAR, et al. Evaluation, treatment, and prevention of vitamin D deficiency: an Endocrine Society clinical practice guideline. JCEM. 2010; 96(7):1911-30. Performed By: #### F T4, VITAD, FETIBC, FERR #### [facility] [address] [address] [address] Cecilio Gale CBC AUTO DIFFon 07-08-2022 BASO # 0.0 103/ul Normal 0.0-0.1 [facility] Comment on above: Performed By: #### C BC #### [facility] [address] [address] [address] Cecilio Gale Basophils/100 WBC (Bld) 0.6 % Normal 0.2-2.0 [facility] Comment on above: Performed By: #### C BC #### [facility] [address] [address] [address] Cecilio Gale EO # 0.0 103/ul Normal 0.0-0.7 [facility] Comment on above: Performed By: #### C BC #### [facility] [address] [place] [address] Dr. Cecilio Gale Eosinophils/100 WBC (Bld) 0.0 % Critically low 0.9-7.0 [facility] Comment on above: Performed By: #### C BC #### [facility] [address] [place] [address] Dr. Cecilio Gale Erythrocyte distribution width (RBC) [Ratio] 11.8 % Normal 11.0-15.0 [facility] Comment on above: Performed By: #### C BC #### [facility] [address] [place] [address] Dr. Cecilio Gale Hematocrit (Bld) [Volume fraction] 40.2 % Normal 36.0-48.0 [facility] Comment on above: Performed By: #### C BC #### [facility] [address] [address] [address] Cecilio Gale Hemoglobin (Bld) [Mass/Vol] 14.5 g/dL Normal 12.0-16.0 [facility] Comment on above: Performed By: #### C BC #### [facility] [address] [place] [address] Dr. Cecilio Gale IG # 0.01 10e3/ul Normal 0.00-0.03 [facility] Comment on above: Performed By: #### C BC #### [facility] [address] [place] [address] Dr. Cecilio Gale IG % 0.2 % Normal 0.0-0.5 [facility] Comment on above: Performed By: #### C BC #### [facility] [address] [place] [address] Dr. Cecilio Gale LYMPH # 2.1 103/ul Normal 1.2-3.8 [facility] Comment on above: Performed By: #### C BC #### [facility] [address] [place] [address] Dr. Cecilio Gale Lymphocytes/100 WBC (Bld) 45.9 % Normal 20.5-60.0 [facility] Comment on above: Performed By: #### C BC #### [facility] [address] [place] [address] Dr. Cecilio Gale MANUAL DIFF REQ NO Normal [facility] Comment on above: Performed By: #### C BC #### [facility] [address] [place] [address] Dr. Cecilio Gale MCH (RBC) [Entitic mass] 33.0 pg Normal 26.7-34.0 [facility] Comment on above: Performed By: #### C BC #### [facility] [address] [place] [address] Dr. Cecilio Gale MCHC (RBC) [Mass/Vol] 36.1 g/dL Critically high 29.9-35.2 [facility] Comment on above: Performed By: #### C BC #### [facility] [address] [place] [address] Dr. Cecilio Gale MCV (RBC) [Entitic vol] 91.6 fL Normal 81.0-99.0 [facility] Comment on above: Performed By: #### C BC #### [facility] [address] [place] [address] Dr. Cecilio Gale MONO # 0.4 103/ul Normal 0.3-0.8 [facility] Comment on above: Performed By: #### C BC #### [facility] [address] [place] [address] Dr. Cecilio Gale Monocytes/100 WBC (Bld) 8.9 % Normal 1.7-12.0 [facility] Comment on above: Performed By: #### C BC #### [facility] [address] [place] [address] Dr. Cecilio Gale NEUT # 2.1 103/ul Normal 1.4-6.5 [facility] Comment on above: Performed By: #### C BC #### [facility] [address] [place] [address] Dr. Cecilio Gale Neutrophils/100 WBC (Bld) 44.4 % Normal 43.0-75.0 [facility] Comment on above: Performed By: #### C BC #### [facility] [address] [place] [address] Dr. Cecilio Gale Platelet mean volume (Bld) [Entitic vol] 8.4 fL Critically low 9.5-13.5 [facility] Comment on above: Performed By: #### C BC #### [facility] [address] [place] [address] Dr. Cecilio Gale PLT 349 103/ul Normal 150-450 [facility] Comment on above: Performed By: #### C BC #### [facility] [address] [place] [address] Dr. Cecilio Gale RBC 4.39 106/ul Normal 4.20-5.40 [facility] Comment on above: Performed By: #### C BC #### [facility] [address] [place] [address] Dr. Cecilio Gale WBC 4.6 103/ul Normal 4.0-11.0 [facility] Comment on above: Performed By: #### C BC #### [facility] [address] [place] [address] Dr. Cecilio Gale CULTURE URINEon 07-08-2022 CULTURE URINE Culture Observations: MODERATE GROWTH OF MIXED GENITAL CAMERON. NO POTENTIAL PATHOGENS SEEN. Normal [facility] Comment on above: Performed By: #### F T4, VITAD, FETIBC, FERR #### [facility] [address] [address] [address] Cecilio Gale FERRITINon 07-08-2022 Ferritin [Mass/Vol] 182.0 ng/mL Normal 8.0-252.0 [facility] Comment on above: Performed By: #### F T4, VITAD, FETIBC, FERR #### [facility] [address] [address] [address] Cecilio Gale FREE T3on 07-08-2022 FREE T3 2.02 pg/mlL Critically low 2.18-3.98 [facility] Comment on above: Performed By: #### F T4, VITAD, FETIBC, FERR #### [facility] [address] [place] [address] Dr. Cecilio Gale FREE T4on 07-08-2022 Free T4 [Mass/Vol] 0.98 ng/dL Normal 0.76-1.46 [facility] Comment on above: Performed By: #### F T4, VITAD, FETIBC, FERR #### [facility] [address] [place] [address] Dr. Cecilio Gale GLYCOHEMOGLOBIN A1Con 2021 ADA RECOMMENDATION SEE BELOW Normal [facility] Comment on above: Result Comment: ADA RECOMMENDED LIMIT 4.0 - 6.0 ADA THERAPEUTIC TARGET < 7.0 ACTION SUGGESTED > 7.0 Performed By: #### A 1C #### [facility] [address] [place] [address] Dr. Cecilio Gale Glucose [Mass/Vol] 105 mg/dL Normal [facility] Comment on above: Performed By: #### A 1C #### [facility] [address] [place] [address] Dr. Cecilio Gale HbA1c (Bld) [Mass fraction] 5.3 % Normal 4.5-6.2 [facility] Comment on above: Performed By: #### A 1C #### [facility] [address] [place] [address] Dr. Cecilio Gale IRON AND TIBCon 07-08-2022 % SATURATION 79.9 % Normal [facility] Comment on above: Performed By: #### F T4, VITAD, FETIBC, FERR #### [facility] [address] [address] [address] Cecilio Gale Iron [Mass/Vol] 219.0 ug/dL Critically high 50.0-170.0 [facility] Comment on above: Performed By: #### F T4, VITAD, FETIBC, FERR #### [facility] [address] [address] [address] Cecilio Gale TIBC DIRECT 274.0 ug/dL Normal 250.0-450.0 [facility] Comment on above: Performed By: #### F T4, VITAD, FETIBC, FERR #### [facility] [address] [place] [address] Dr. Cecilio Gale LIPID PROFILEon 07-08-2022 CHOL-HDL RATIO NORM SEE BELOW Normal [facility] Comment on above: Result Comment: 3.3 - 4.4 LOW RISK 4.4 - 7.1 AVERAGE RISK 7.1 - 11.0 MODERATE RISK >11.0 HIGH RISK Performed By: #### F T4, VITAD, FETIBC, FERR #### [facility] [address] [place] [address] Dr. Cecilio Gale Cholesterol [Mass/Vol] 215 mg/dL Critically high <=200 [facility] Comment on above: Performed By: #### F T4, VITAD, FETIBC, FERR #### [facility] [address] [address] [address] Cecilio Gale Cholesterol in HDL [Mass/Vol] 98 mg/dL Critically high 40-60 [facility] Comment on above: Performed By: #### F T4, VITAD, FETIBC, FERR #### [facility] [address] [place] [address] Dr. Cecilio Gale Cholesterol in LDL [Mass/Vol] 105.4 mg/dL Normal [facility] Comment on above: Performed By: #### F T4, VITAD, FETIBC, FERR #### [facility] [address] [place] [address] Dr. Cecilio Gale Cholesterol.total/Cho lesterol in HDL [Mass ratio] 2.2 {ratio} Normal [facility] Comment on above: Performed By: #### F T4, VITAD, FETIBC, FERR #### [facility] [address] [place] [address] Dr. Cecilio Gale HDL NORMAL > or = 60 mg/dl - LOW CARDIOVASCULAR RISK <40 mg/dl - HIGH CARDIOVASCULAR RISK Normal [facility] Comment on above: Performed By: #### F T4, VITAD, FETIBC, FERR #### [facility] [address] [place] [address] Dr. Cecilio Gale LDL CALC NORMAL SEE BELOW Normal [facility] Comment on above: Result Comment: <100 mg/dl OPTIMAL 100 - 129 mg/dl NEAR OR ABOVE OPTIMAL 130 - 159 mg/dl BORDERLINE HIGH 160 - 189 mg/dl HIGH >190 mg/dl VERY HIGH Performed By: #### F T4, VITAD, FETIBC, FERR #### [facility] [address] [place] [address] Dr. Cecilio Gale Triglyceride [Mass/Vol] 58 mg/dL Normal <=150 [facility] Comment on above: Performed By: #### F T4, VITAD, FETIBC, FERR #### [facility] [address] [place] [address] Dr. Cecilio Gale VLDL CALC 11.6 mg/dL Normal [facility] Comment on above: Performed By: #### F T4, VITAD, FETIBC, FERR #### [facility] [address] [place] [address] Dr. Cecilio Gale PROF 14(COMP METB)on 022 Albumin [Mass/Vol] 4.0 g/dL Normal 3.4-5.0 [facility] Comment on above: Performed By: #### F T4, VITAD, FETIBC, FERR #### [facility] [address] [place] [address] Dr. Cecilio Gale Albumin/Globulin [Mass ratio] 1.0 {ratio} Normal [facility] Comment on above: Performed By: #### F T4, VITAD, FETIBC, FERR #### [facility] [address] [place] [address] Dr. Cecilio Gale ALP [Catalytic activity/Vol] 160 U/L Critically high 46-116 [facility] Comment on above: Performed By: #### F T4, VITAD, FETIBC, FERR #### [facility] [address] [place] [address] Dr. Cecilio Gale ALT [Catalytic activity/Vol] 26 U/L Normal 14-59 [facility] Comment on above: Performed By: #### F T4, VITAD, FETIBC, FERR #### [facility] [address] [place] [address] Dr. Cecilio Gale Anion gap [Moles/Vol] 14.1 mmol/L Normal [facility] Comment on above: Performed By: #### F T4, VITAD, FETIBC, FERR #### [facility] [address] [place] [address] Dr. Cecilio Gale AST [Catalytic activity/Vol] 19 U/L Normal 15-37 [facility] Comment on above: Performed By: #### F T4, VITAD, FETIBC, FERR #### [facility] [address] [place] [address] Dr. Cecilio Gale Bilirubin [Mass/Vol] 0.5 mg/dL Normal 0.2-1.0 [facility] Comment on above: Performed By: #### F T4, VITAD, FETIBC, FERR #### [facility] [address] [place] [address] Dr. Cecilio Gale Calcium [Mass/Vol] 8.9 mg/dL Normal 8.5-10.1 [facility] Comment on above: Performed By: #### F T4, VITAD, FETIBC, FERR #### [facility] [address] [place] [address] Dr. Cecilio Gale Chloride [Moles/Vol] 93 mmol/L Critically low 98-107 [facility] Comment on above: Performed By: #### F T4, VITAD, FETIBC, FERR #### [facility] [address] [place] [address] Dr. Cecilio Gale CO2 [Moles/Vol] 25.9 mmol/L Normal 21.0-32.0 [facility] Comment on above: Performed By: #### F T4, VITAD, FETIBC, FERR #### [facility] [address] [place] [address] Dr. Cecilio Gale Creatinine [Mass/Vol] 0.68 mg/dL Normal 0.55-1.02 [facility] Comment on above: Performed By: #### F T4, VITAD, FETIBC, FERR #### [facility] [address] [address] [address] Cecilio Gale EGFR-AF SERBIAN >60 Normal >=60 [facility] Comment on above: Performed By: #### F T4, VITAD, FETIBC, FERR #### [facility] [address] [place] [address] Dr. Cecilio Gale EGFR-NON AF SERBIAN >60 Normal >=60 [facility] Comment on above: Performed By: #### F T4, VITAD, FETIBC, FERR #### [facility] [address] [place] [address] Dr. Cecilio Gale Globulin (S) [Mass/Vol] 3.9 g/dL Normal [facility] Comment on above: Performed By: #### F T4, VITAD, FETIBC, FERR #### [facility] [address] [place] [address] Dr. Cecilio Gale Glucose [Mass/Vol] 108 mg/dL Critically high 74-106 T [facility] Comment on above: Performed By: #### F T4, VITAD, FETIBC, FERR #### [facility] [address] [place] [address] Dr. Cecilio Gale Potassium [Moles/Vol] 4.0 mmol/L Normal 3.5-5.1 [facility] Comment on above: Performed By: #### F T4, VITAD, FETIBC, FERR #### [facility] [address] [place] [address] Dr. Cecilio Gale Protein [Mass/Vol] 7.9 g/dL Normal 6.4-8.2 [facility] Comment on above: Performed By: #### F T4, VITAD, FETIBC, FERR #### [facility] [address] [place] [address] Dr. Cecilio Gale Sodium [Moles/Vol] 129 mmol/L Critically low 136-145 Th [facility] Comment on above: Performed By: #### F T4, VITAD, FETIBC, FERR #### [facility] [address] [place] [address] Dr. Cecilio Gale Urea nitrogen [Mass/Vol] 6.0 mg/dL Critically low 7.0-18.0 [facility] Comment on above: Performed By: #### F T4, VITAD, FETIBC, FERR #### [facility] [address] [place] [address] Dr. Cecilio Gale Urea nitrogen/Creatinine [Mass ratio] 8.8 mg/mg Normal [facility] Comment on above: Performed By: #### F T4, VITAD, FETIBC, FERR #### [facility] [address] [place] [address] Dr. Cecilio Gale TSHon 07-08-2022 TSH 0.963 uIU/mL Normal 0.358-3.740 [facility] Comment on above: Performed By: #### F T4, VITAD, FETIBC, FERR #### [facility] [address] [place] [address] Dr. Cecilio Gale UA RANDOMon 07-08-2022 Bilirubin Ql (U) Negative Normal NEGATIVE [facility] Comment on above: Performed By: #### F T4, VITAD, FETIBC, FERR #### [facility] [address] [place] [address] Dr. Cecilio Gale Clarity (U) CLEAR Normal CLEAR [facility] Comment on above: Performed By: #### F T4, VITAD, FETIBC, FERR #### [facility] [address] [place] [address] Dr. Cecilio Gale Color (U) LT. YELLOW Normal YELLOW [facility] Comment on above: Performed By: #### F T4, VITAD, FETIBC, FERR #### [facility] [address] [address] [address] Cecilio Gale Glucose Ql (U) Negative Normal NEGATIVE [facility] Comment on above: Performed By: #### F T4, VITAD, FETIBC, FERR #### [facility] [address] [address] [address] Cecilio Gale Hemoglobin Ql (U) TRACE-LYSED Abnormal NEGATIVE [facility] Comment on above: Performed By: #### F T4, VITAD, FETIBC, FERR #### [facility] [address] [address] [address] Cecilio Gale Ketones Ql (U) Negative Normal NEGATIVE [facility] Comment on above: Performed By: #### F T4, VITAD, FETIBC, FERR #### [facility] [address] [place] [address] Dr. Cecilio Gale LEUKOCYTES Negative Normal NEGATIVE [facility] Comment on above: Performed By: #### F T4, VITAD, FETIBC, FERR #### [facility] [address] [address] [address] Cecilio Gale Nitrite Ql (U) Negative Normal NEGATIVE [facility] Comment on above: Performed By: #### F T4, VITAD, FETIBC, FERR #### [facility] [address] [address] [address] Cecilio Gale pH (U) 7.5 [pH] Normal 5-9 [facility] Comment on above: Performed By: #### F T4, VITAD, FETIBC, FERR #### [facility] [address] [address] [address] Cecilio Gale SPEC GRAVITY <=1.005 Abnormal 1.005-<=1.025 [facility] Comment on above: Performed By: #### F T4, VITAD, FETIBC, FERR #### [facility] [address] [address] [address] Cecilio Gale UA PROTEIN Negative Normal NEGATIVE/ TRACE [facility] Comment on above: Performed By: #### F T4, VITAD, FETIBC, FERR #### [facility] [address] [place], [place] [address] Dr. Cecilio Gale Urobilinogen Qn (U) 0.2 {Anita'U}/dL Normal 0.2 - 1. 0 [facility] Comment on above: Performed By: #### F T4, VITAD, FETIBC, FERR #### [facility] [address] [address] [address] Cecilio Gale Vital Signs Date Time Vital Sign Value Performing Clinician Facility 10-27-2023 11:10-0500 Body height 165.1 cm Scotty Ruiz Other [facility] Other 10-27-2023 11:10-0500 Body mass index (BMI) [Ratio] 36.11 kg/m2 Scotty Ruiz Other [facility] Other 10-27-2023 11:10-0500 Body temperature 98.1 [degF] Scotty Ruiz Other [facility] Other 10-27-2023 11:10-0500 Body weight 98.43 kg Scotty Ruiz Other [facility] Other 10-27-2023 11:10-0500 Diastolic blood pressure 78 mm[Hg] Scotty Ruiz Other [facility] Other 10-27-2023 11:10-0500 Respiratory rate 18 /min Scotty Ruiz Other [facility] Other 10-27-2023 11:10-0500 SaO2% (BldA) [Mass fraction] 97 % Scotty Ruiz Other [facility] Other 10-27-2023 11:10-0500 Systolic blood pressure 120 mm[Hg] Scotty Ruiz Other [facility] Other 07-28-2023 09:50-0400 Body height 165.1 cm Scotty Sara Other [facility] Other 07-28-2023 09:50-0400 Body mass index (BMI) [Ratio] 39.1 kg/m2 Scotty Sara Other [facility] Other 07-28-2023 09:50-0400 Body weight 106.6 kg Scotty Ruiz Other [facility] Other 07-28-2023 09:50-0400 Diastolic blood pressure 78 mm[Hg] Scotty Ruiz Other [facility] Other 07-28-2023 09:50-0400 Respiratory rate 18 /min Scotty Ruiz Other [facility] Other 07-28-2023 09:50-0400 SaO2% (BldA) [Mass fraction] 98 % Scotty Sara Other [facility] Other 07-28-2023 09:50-0400 Systolic blood pressure 124 mm[Hg] Scotty Sara Other [facility] Other 06-02-2023 13:00-0400 Body height 165.1 cm Rajendra Angulo Other [facility] Other 06-02-2023 13:00-0400 Body mass index (BMI) [Ratio] 42.43 kg/m2 Rajendra Angulo Other [facility] Other 06-02-2023 13:00-0400 Body weight 115.67 kg Rajendra Angulo Other [facility] Other 06-02-2023 13:00-0400 Diastolic blood pressure 78 mm[Hg] Roberthannah Landadano Other [facility] Other 06-02-2023 13:00-0400 SaO2% (BldA) [Mass fraction] 97 % Rajendra Angulo Other [facility] Other 06-02-2023 13:00-0400 Systolic blood pressure 119 mm[Hg] Robertsethkati Kev Other [facility] Other 01-21-2023 11:50-0400 Body height 165.1 cm Scotty Ruiz Other [facility] Other 01-21-2023 11:50-0400 Body mass index (BMI) [Ratio] 45.92 kg/m2 Scotty Ruiz Other [facility] Other 01-21-2023 11:50-0400 Body temperature 97.7 [degF] Scotty Ruiz Other [facility] Other 01-21-2023 11:50-0400 Body weight 125.19 kg Scotty Ruiz Other [facility] Other 01-21-2023 11:50-0400 Diastolic blood pressure 86 mm[Hg] Scotty Ruiz Other [facility] Other 01-21-2023 11:50-0400 Respiratory rate 18 /min Scotty Ruiz Other [facility] Other 01-21-2023 11:50-0400 SaO2% (BldA) [Mass fraction] 97 % Scotty Ruiz Other [facility] Other 01-21-2023 11:50-0400 Systolic blood pressure 128 mm[Hg] Scotty Ruiz Other [facility] [employer] Other 08-04-2022 15:21-0400 Blood Pressure Location [facility] 08-04-2022 15:21-0400 Diastolic blood pressure 80 mm[Hg] [facility] 08-04-2022 15:21-0400 Heart rate 72 /min Kerry [facility] 08-04-2022 15:21-0400 Respiratory rate 16 /min Kerry [facility]olene [facility] 08-04-2022 15:21-0400 Systolic blood pressure 118 mm[Hg] Kerry EPPERSONJolene [facility] 07-29-2022 11:12-0400 Body height 165.1 cm Ricci Garcia MD Work Phone: [facility] 07-29-2022 11:12-0400 Body temperature 97.11 [degF] Ricci Garcia MD Work Phone: [facility] 07-29-2022 11:12-0400 Body weight 122.97 kg Ricci Garcia MD Work Phone: [facility] 07-29-2022 11:12-0400 Diastolic blood pressure 89 mm[Hg] Ricci Garcia MD Work Phone: [facility] 07-29-2022 11:12-0400 Heart rate 83 /min Ricci Garcia MD Work Phone: [facility] 07-29-2022 11:12-0400 Respiratory rate 16 /min Ricci Garcia MD Work Phone: [facility] 07-29-2022 11:12-0400 SaO2% (BldA) [Mass fraction] 98 % Ricci Garcia MD Work Phone: [facility] 07-29-2022 11:12-0400 Systolic blood pressure 152 mm[Hg] Ricci Garcia MD Work Phone: [facility] 07-14-2022 14:20-0400 Body height 165.1 cm Scotty Ruiz Other [facility] Other 07-14-2022 14:20-0400 Body mass index (BMI) [Ratio] 45.26 kg/m2 Scotty Ruiz Other [facility] Other 07-14-2022 14:20-0400 Body temperature 97.6 [degF] Scotty Ruiz Other [facility] Other 07-14-2022 14:20-0400 Body weight 123.38 kg Scotty Ruiz Other [facility] Other 07-14-2022 14:20-0400 Diastolic blood pressure 82 mm[Hg] Scotty Ruiz Other [facility] Other 07-14-2022 14:20-0400 SaO2% (BldA) [Mass fraction] 97 % Scotty Ruiz Other [facility] Other 07-14-2022 14:20-0400 Systolic blood pressure 132 mm[Hg] Scotty Ruiz Other [facility] Other 06-03-2022 14:00-0400 Body height 165.1 cm Rajendra Angulo Other [facility] Other 06-03-2022 14:00-0400 Body mass index (BMI) [Ratio] 45.26 kg/m2 Rajendra Angulo Other [facility] Other 06-03-2022 14:00-0400 Body temperature 97.3 [degF] Roberthannah Landadano Other [facility] Other 06-03-2022 14:00-0400 Body weight 123.38 kg Roberthannah Salinasno Other [facility] Other 06-03-2022 14:00-0400 Diastolic blood pressure 75 mm[Hg] Rajendra Kev Other [facility] Other 06-03-2022 14:00-0400 SaO2% (BldA) [Mass fraction] 10 % Rajendra Kev Other [facility] Other 06-03-2022 14:00-0400 Systolic blood pressure 113 mm[Hg] Rajendra Kev Other [facility] Other Encounters Encounter Date Encounter Type Care Provider Facility Start: 11-23-2023 End: 11-23-2023 ambulatory EZEQUIEL LESTER Not Available Start: 10-27-2023 End: 10-27-2023 ambulatory Scotty Ruiz Other [facility] Other Start: 10-27-2023 Office outpatient vi sit 25 minutes Scotty Ruiz [facility] Start: 08-04-2023 End: 08-04-2023 ambulatory Scotty Ruiz Other [facility] Other Start: 08-04-2023 Telephone encounter Scotty Ruiz [facility] Start: 07-28-2023 End: 07-28-2023 ambulatory Scotty Ruiz Other [facility] Other Start: 07-28-2023 Office outpatient vi sit 25 minutes Scotty Ruiz [facility] Start: 07-22-2023 End: 07-22-2023 ambulatory Scotty Ruiz Other [facility] Other Start: 07-22-2023 Telephone encounter Scotty Ruiz [facility] [place] Start: 06-02-2023 Office outpatient vi sit 10 minutes Rajendra Angulo [facility] Start: 06-02-2023 End: 06-02-2023 ambulatory DO Scotty Ruiz Work Phone: [facility] [employer] Other Start: 06-02-2023 End: 06-02-2023 Patient encounter procedure DO Scotty Ruiz Work Phone: [facility] Work Phone: Start: 02-09-2023 End: 02-09-2023 ambulatory Scotty Ruiz Other [employer] Other Start: 02-09-2023 Telephone encounter Scotty Ruiz [facility] [place] Start: 01-21-2023 End: 01-21-2023 ambulatory Scotty Ruiz Other [facility] [employer] Other Start: 01-21-2023 Encounter for other preprocedural examination Scotty Ruiz [facility] [place] Start: 01-21-2023 Office outpatient vi sit 25 minutes Scotty Ruiz [facility] [place] Start: 01-11-2023 End: 01-12-[address] SCOTTY RUIZ Facility:[facility] Start: 11-30-2022 End: 11-30-2022 ambulatory Scotty Ruiz Other [facility] Other Start: 11-30-2022 Telephone encounter Scotty Ruiz [facility] [place] Start: 10-08-2022 End: 10-09-[address] DOCTOR RANDALL Facility:[facility] Start: 09-22-2022 End: 09-23-2022 ambulatory Kerry JONES Facility: [place] Start: 09-22-2022 End: 09-22-2022 Patient encounter procedure Kerry JONES General Surgery Nill/Said [place] Start: 09-17-2022 ambulatory Scotty Ruiz Facmeme lity:[facility] [place] Start: 09-09-2022 End: 09-10-2022 ambulatory Kerry JONES Facility::[id number] Start: 2022 Telephone encounter Janie Joseph [facility] Start: 2022 End: 09-08-[address] KERRY JONES . 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); Disorder of iron metabolism; Family history of hemochromatosis Start: 08-04-2022 End: 08-05-2022 ambulatory Scotty Ruiz Facility: [facility] Start: 08-04-2022 End: 08-04-2022 Patient encounter procedure Kerry JONES General Surgery [facility]aid [place] Start: 07-29-2022 End: 07-29-2022 Visit (SP) Office Ricci Garcia MD Work Phone: Hematology/Oncology Comment on above: Family history of he mochromatosis (Primary Dx); Disorder of iron metabolism; Hemochromatosis, unspecified hemochromatosis type Start: 07-28-2022 End: 07-28-2022 ambulatory Mahendra Romo Facility:[facility] Start: 07-28-2022 End: 07-28-2022 Patient encounter procedure DO Scotty Ruiz Work Phone: [facility] Start: 07-21-2022 Telephone encounter Scotty Ruiz [facility] Start: 07-21-2022 End: 07-22-[address] SCOTTY RUIZ [facility] [employer] Other Start: 07-14-2022 End: 07-14-2022 ambulatory Scotty Ruiz [facility] [employer] Other Start: 07-14-2022 Office outpatient vi sit 25 minutes Scotty Ruiz [facility] Start: 07-08-2022 End: 07-09-[address] SCOTTY RUIZ Facility: Start: 07-07-2022 Telephone encounter Scotty Ruiz [facility] Start: 07-07-2022 End: 07-09-2022 ambulatory DO [employer] [facility] [employer] Other Start: 06-03-2022 End: 06-03-2022 ambulatory Rajendra Angulo Other [facility] [employer] Other Start: 06-03-2022 Office outpatient vi sit 10 minutes Rajendra Angulo [facility] Start: 06-03-2022 End: 06-03-2022 Patient encounter procedure DO Scotty Ruiz Work Phone: [facility] Start: 09-01-2021 Telephone encounter Scotty Ruiz [facility] Procedures Date Procedure Procedure Detail Performing Clinician Start: 09-09-2022 Colonoscopy Kerry PRESLEY Start: 07-29-2022 Blood count complete auto&auto difrntl wbc Ricci Garcia MD Work Phone: Closed reduction of fracture of ankle Kerry JONES Craniotomy Kerry JONES Ligation of fallopian tube Rebecca JONES Vaginal hysterectomy Kerry JONES Plan of Treatment Date Care Activity Detail Author Start: 08-21-2025 DIABETES SCREEN DIABETES SCREEN [facility] Start: 07-29-2025 DIABETES SCREEN DIABETES SCREEN [facility] Start: 07-29-2022 End: 09-28-2022 HFE gene targeted mutation analysis in Blood or Tissue by Molecular genetics method [facility] Work Phone: Comment on above: Expected: 07/29/2022 , Expires: 09/28/2022 Start: 07-09-2022 Influenza vaccination INFLUENZA (#1) [facility] Start: 04-14-2022 COVID-19 VACCINE (5 - Booster for Pfizer series) COVID-19 VACCINE (5 - Booster for Pfizer series) [facility] Start: 11-08-2021 DEPRESSION ASSESSMENT DEPRESSION ASS ESSMENT [facility] Start: 2011 COLOGUARD (FIT-DNA) COLOGUARD (FIT-D NA) [facility] Start: 2011 Colonoscopy COLONOSCOPY [facility] Start: 2011 COLORECTAL CANCER SCREENING COLORECTAL CANCER SCREENING [facility] Start: [address] COLONOGRAPHY [facility] Start: 2011 FECAL OCCULT BLOOD FECAL OCCULT BLOO D [facility] Start: 2011 LIPID SCREEN LIPID SCREEN [facility] Start: 2011 SIGMOIDOSCOPY SIGMOIDOSCOPY [facility] Start: 2006 Mammography MAMMOGRAM [facility] Start: 1996 HPV TESTING HPV TESTING [facility] Start: 1987 PAP TESTING PAP TESTING [facility] Start: 1985 Urine microalbumin profile DTAP,TDAP,TD (1 - Tdap) [facility] Start: 1984 HEPATITIS C SCREENING HEPATITIS C SC REENING [facility] Start: 1984 HIV SCREENING HIV SCREENING [facility] Start: 1978 Adult depression screening assessment DEPRESSION SCREENING [facility] Start: 1966 HEPATITIS B (1 of 3 - 3-dose series) HEPATITIS B (1 of 3 - 3-dose series) [facility] End: 08-12-2023 CBC W Auto Differential panel - Blood CBC + DIFF Lab Routine 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) Every 3 months for 4 Occurrences starting 08/12/2022 until 08/12/2023 [facility] Work Phone: Comment on above: Every 3 months for 4 Occurrences starting 08/12/2022 until 08/12/2023 End: 08-12-2023 Comprehensive metabolic 2000 panel - Serum or Plasma COMP METABOLIC PANEL Lab Routine 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) Every 3 months for 4 Occurrences starting 08/12/2022 until 08/12/2023 [facility] Work Phone: Comment on above: Every 3 months for 4 Occurrences starting 08/12/2022 until 08/12/2023 End: 08-12-2023 Ferritin [Mass/volume] in Serum or Plasma FERRITIN BLD Lab Routine 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) Every 3 months for 4 Occurrences starting 08/12/2022 until 08/12/2023 [facility] Work Phone: Comment on above: Every 3 months for 4 Occurrences starting 08/12/2022 until 08/12/2023 End: 08-12-2023 Iron and Iron binding capacity panel - Serum or Plasma IRON + TIBC Lab Routine 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) Every 3 months for 4 Occurrences starting 08/12/2022 until 08/12/2023 [facility] Work Phone: Comment on above: Every 3 months for 4 Occurrences starting 08/12/2022 until 08/12/2023 [facility] Immunizations Immunization Date Immunization Notes Care Provider Fa cili 08-18-2023 COVID-19 Vaccine Moderna - Documentation Purposes Only Scotty Ruiz Other [facility] Other 08-18-2023 Flu Shot - Documentation Purposes Only Scotty Ruiz Other [facility] Other 10-15-2022 influenza, seasonal, injectable Scotty Ruiz Other [facility] Other 02-17-2022 COVID-19 Vaccine Moderna - Documentation Purposes Only Rajendra Angulo Other [facility] Other 10-11-2021 COVID-19 Vaccine Pfizer - Documentation Purposes Only Rajendra Angulo Other [facility] Other 08-05-2021 influenza, seasonal, injectable Scotty Ruiz Other [facility] Other 08-05-2021 influenza, injectable, quadrivalent, preservative free Ricci Garcia MD Work Phone: [facility] 02-07-2021 COVID-19 Vaccine Pfizer - Documentation Purposes Only Scotty Ruiz Other [facility] Comment on above: Reason for Medicatio n: Prophylaxis 01-17-2021 COVID-19 Vaccine Pfizer - Documentation Purposes Only Scotty Ruiz Other [facility] Comment on above: Reason for Medicatio n: Prophylaxis 10-04-2020 zoster vaccine recombinant Scotty Ruiz Other [facility] 08-05-2020 zoster vaccine recombinant Scotty Ruiz Other [facility] 08-05-2020 influenza, seasonal, injectable Scotty Ruiz Other [employer] Other 08-05-2020 influenza, injectable, quadrivalent, preservative free Ricci Garcia MD Work Phone: [facility] 10-17-2019 influenza, seasonal, injectable Scotty Ruiz Other [facility] Other 10-17-2019 influenza, injectable, quadrivalent, contains preservative Ricci Garcia MD Work Phone: [facility] 07-23-2018 influenza, injectable, quadrivalent, preservative free Ricci Garcia MD Work Phone: [facility] 07-23-2018 influenza, seasonal, injectable Scotty Ruiz Other [facility] Other NEGATED: Highlighted row has not occurred!08-04-2022 influenza virus vaccine, unspecified formulation Kerry EPPERSONJolene [facility] [place] Payers Date Payer Category Payer Self-pay [id number] 2019 Medicare HUMANA MEDICARE HU[employer]NA MEDICARE PPO [id number] 2019-Present [phone] [address] [address] [place] [address] PPO [id number] 1966 Unknown [id number] 1966 Unknown [id number] [id number] 1966 Unknown [id number] [id number] 1966 Unknown [id number] 2.16.840.1.027180.3.579.2.727 1966 Unknown [id number] [id number] 1966 Unknown [id number] 2.16.840.1.982540.3.579.2.593 1966 Unknown [id number] 2.16.840.1.227862.3.579.2.593 1966 Unknown [id number] 2.16.840.1.896059.3.579.2.593 1966 Unknown [id number] 2.16.840.1.337147.3.579.2.593 1966 Unknown [id number] 2.16.840.1.900982.3.579.2.593 1966 Unknown [id number] 2.16.840.1.973220.3.579.2.593 1966 Unknown [id number] 2.16.840.1.979102.3.579.2.1259 1958 Medicare [id number] 2.16. [id number] Unknown MMO [id number] Unknown Regular Insurance [id number] Unknown [employer] [id number] Unknown [id number] [id number] Unknown [id number] [id number] Unknown [id number] [id number] Social History Date Type Detail Facility Unknown if ever smoked [facility] [employer] Other Sex Assigned At [facility] [facility] [employer] Other Start: 1965 Sex Assigned At Female F [facility] Start: 07-23-2022 End: 08-04-2022 Tobacco smoking status NHIS Never smoked tobacco [facility] History of tobacco use Passive smoker [facility] Start: 07-23-2022 Tobacco use and exposure Smokeless tobacco non-user [facility] Start: 07-29-2022 Alcohol intake Current non-dr basin cleaner of alcohol (finding) [facility] Start: 1965 Sex Assigned At Not on file [facility] Start: 07-19-2022 End: 08-21-2022 Exposure to SARS-CoV-2 (event) Not sure [facility] Tobacco smoking status Never General Surgery [place] Functional Status Date Assessment Result Facility 08-04-2022 Functional Status N/A [facility] Clinical Notes 09-01-2021 to 10-27-2023 Note Date [...] Oct, Hyperglycemia (ICD-10 - R73.9) Oct, Other fpc (current) drug therapy (ICD-10 - Z79.899) Oct, [...] - E87.1) Her sodium level was 131. [facility] Other 09-20-2023 Evaluation note* Encounter Date Diagnosis [...] HgA1C is normal at 5.4. 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 [facility] Other 07-26-2023 Evaluation note* Encounter Date Diagnosis Assessment Notes Treatment Notes Treatment Clinical Notes May, LORENA (obstructive sleep apnea) (ICD-10 - G47.33) [facility] Other 03-16-2023 Evaluation note* Encounter Date Diagnosis [...] was 121. Ferritin was 132.0. Jan, Other fpc (current) drug therapy (ICD-10 - Z79.899) Jan, [...] winded. She is seeing Dr. Collins in [place] in an attempt to have bariatric weight loss surgery done. She has two appointments scheduled for February, if she is approved weight loss surgery would be done in the summer. I did independently review a CXR and [...] when she had weight loss surgery done. [facility] Other 11-02-2022 NoteOPERATIVE NOTE OPERATION DATE: 09/09/2022 [...] room in good condition. CC: Scotty Ruiz D.O.[id number] NoteHNO ID: [id number] Author: Olesya Rodriguez RN Service: ? Author Type: Registered Nurse Type: Progress Notes Filed: 08/21/2022 4:39 PM Note Text: Pt was checked in for appointment. HGB of 14.3 qualified her for a phlebotomy. However, pt left the building after getting her blood work drawn. PSS called and LVM for pt to reschedule.[facility] 08-21-2022 History of Present illness Narrative* Olesya Rodriguez RN - 08/21/2022 3:24 PM EDT Pt was checked in for appointment. HGB of 14.3 qualified her for a phlebotomy. However, pt left thebuilding after getting her blood work drawn. PSS called and LVM for pt to reschedule. [facility] Instructions* Patient Instructions* Ricci Garcia MD - 08/12/2022 8:43 PM EDT Arrange for phlebotomy 1 unit for Hgb > 13 next week Labs in 3 months RTC 1 week after labs and schedule for possible phlebotomy after clinician. documented in this encounterK[facility]10-05-2022 NoteHNO ID: [id number] Author: Ricci Garcia MD Service: ? Author Type: Physician Type: Progress Notes Filed: 08/12/2022 8:45 PM Note Text: NAME: Aman Mikey CLINIC NO.: [id number] DATE OF SERVICE: August 12, 2022 Some [...] 07/29/2022 0.4 AST (U/L (more content not included)...[facility]10-05-2022 History of Present illness Narrative* Ricci Garcia MD - 08/12/2022 5:17 PM EDT Images from the original note were not included. NAME: Mikey Montez CLINIC NO.: [id number] DATE OF SERVICE: August 12, 2022 Some [...] CPE Hematology and Oncology Services Provided at: [place], [place] CC: Scotty Ruiz [address] [place] [id number] Scotty Ruiz DO [address] [place] [phone] documented in this encounterK[facility]09-27-2022 NoteChief Complaint consultation for screening colonoscopy HPI [...] 50,000 intl units (1.25 mg) oral capsule, 62422 International_Unit= 1 cap(s), Oral, qWeek Allergies Depakote [...] SARS-CoV-2 (COVID-19) mRNA BNT-162b2 vax 01/17/2021 Given ProphylaxisMartin Memorial HospitalComment on above:Result Comment: Electronically Signed By: MOMO CHAND, Kerry Barfield\Date and Time Signed: 08/04/22 15:39 [id number] Note HNO ID: [id number] Author: Ricci Garcia MD Service: ? Author Type: Physician Type: Progress Notes Filed: 07/30/2022 12:33 PM Note Text: NAME: Mikey Montez CLINIC NO.: [id number] DATE OF SERVICE: July 29, 2022 Referring [...] FAMILY HISTORY Problem Relation (more content not included)...[facility] 07-29-2022 Instructions* Patient Instructions* Ricci Garcia MD - 07/29/2022 11:49 AM EDT HFE and iron labs today Call results in 2 weeks. documented in this encounterK[facility]09-21-2022 History of Present illness Narrative* Ricci Garcia MD - 07/29/2022 11:00 AM EDT Images from the original note were not included. NAME: Mikey Montez CLINIC NO.: [id number] DATE OF SERVICE: July 29, 2022 Referring [...] which included preparing to see the patient, [id number] patient care, completing clinical documentation, obtaining and/or reviewing separately obtained history, performing a medically appropriate examination, counseling and educating the pat ient/family/caregiver, ordering medications, tests, or procedures, and independently interpreting results (not separately reported). Ricci Garcia MD, CPE [facility]ology [facility] [place] CC: Scotty Ruiz [address] [place] [phone] Scotty Ruiz, DO [address] [place] [phone] documented in this encounterKet[facility] Health09-06-2022 Evaluation note* Encounter Date Diagnosis Assessment Notes [...] alkaline phos level was broken down in Nov (2021). Her liver fraction was 60. Bone fraction [...] with her Vitamin D supplement. Jul, Other fpc (current) drug therapy (ICD-10 - Z79.899) Jul, [...] advise her that she should see another botany teacher to determine if she has hemochromatosis or [...] years ago she had an appointment in [place] with a bariatric surgeon and at the [...] colonoscopy, she agrees. A referral is provided. [facility] Other 07-27-2022 Evaluation note* Encounter Date Diagnosis Assessment Notes Treatment Notes Treatment Clinical Notes May, LORENA (obstructive sleep apnea) (ICD-10 - G47.33) [facility] Other 10-25-2021 Evaluation note* Encounter Date Diagnosis Assessment Notes Treatment Notes Treatment Clinical Notes Aug, Hypothyroidism (ICD-10 - E03.9) [facility] Other Evaluation + Plan note No data available for this section General Surgery [place] Evaluation noteNo InformationNort [employer] Other Evaluation noteNo assessment information available [facility] Work Phone: Evaluation note* Diagnosis Family history of hemochromatosis- Primary Family history of other endocrine and metabolic diseases Disorder of iron metabolism Other disorders of iron metabolism Hemochromatosis, unspecified hemochromatosis type [facility] Diagnosis 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 Natalio Weaver Medical History History of [place] Medical History Hemochromotosis Medical History Dr. Mckeon, perform's patient's pap's and pelvics Medical History Patient states that she get's her Medical Equipment from [facility] Medical History LORENA (obstructive sleep apnea) Medical History Refuses Colonoscopy 02-08-17 Surgical History Brain Surgery 1988 Surgical History Tubal Ligation 1991 Surgical History Hysterectomy 2003 Hospitalization History Brain Surgery 1988 Hospitalization History Tubal Ligation 1991 Hospitalization History Hysterectomy 2003 [facility] Other History general Narrative - Reported* Type Description Date Medical History Epilepsy-1977; Follow's with Dr. Natalio Weaver Medical History History of [place] Medical History Hemochromotosis Medical History Dr. Mckeon, jabari's patient's pap's and pelvics Medical History Patient states that she get's her Medical Equipment from [employer] [facility] Medical History LORENA (obstructive sleep apnea) Medical History Refuses Colonoscopy 02-08-17 Medical History gallstones Surgical History Brain Surgery 1988 Surgical History Tubal Ligation 1991 Surgical History Hysterectomy 2003 Surgical History Colonoscopy - Dr. Jones / alejandra d polyp 09/25/22 Hospitalization History Brain Surgery 1988 Hospitalization History Tubal Ligation 1991 Hospitalization History Hysterectomy 2003 [facility] Other [facility] general Narrative - Reported* Type Description Date Medical History Epilepsy-1977; Follow's with Dr. Natalio Weaver Medical History History of [place] Medical History Hemochromotosis Medical History Dr. Mckeon, jabari's patient's pap's and pelvics Medical History Patient states that she get's her Medical Equipment from [employer] Medical History LORENA (obstructive sleep apnea) Medical History Refuses Colonoscopy 02-08-17 Medical History gallstones Surgical History Brain Surgery 1988 Surgical History Tubal Ligation 1991 Surgical History Hysterectomy 2003 Surgical History Colonoscopy - Dr. Holly presley / sigmoid polyp / needs repeat in 202409/09/22 Surgical History bariatric surgery 06/22/23 Hospitalization History Brain Surgery 1988 Hospitalization History Tubal Ligation 1991 Hospitalization History Hysterectomy 2003 [facility] Other Hospital Discharge instructions No data available for this section General [facility] [place] Progress note No data available for this section [facility] [place] Reason for visit Narrativereview labs/medical clearance for bariatric surgeryNortHooked Other Chief Complaint and Reason for Visit Chief Complaint Sleep apnea annual f ollow up Chief Complaint Sleep apnea annual f ollow up Cognitive Disability Chief Complaint Cognitive Disability Chief Complaint Obstructive sleep ap ricardo Advance Directives No Advanced Directives Records Found Advance Directive Response Recorded Date/ Time Advance Directives No January 26 018 1:08pm Advance Directive Response Recorded Date/ Time Advance Directives No January 26 12:08pm Reason for Referral Reason appt pt needs scre ening colonoscopy Diagnosis 1 Encounter for screen ing colonoscopy (Z12.11) Referral Organization [facility] Bill Referring Provider First Name Scotty Referring Provider Last Name Sara Referring Provider Specialty Family Prac marcy Referred Organization [facility] Referred Provider Kerry Jones Referred Address ,[place], [place],[address] Referred Provider Specialty Surgery Referral Priority Routine General Notes Luh Giraldo 07/14/2022 02:16:50 PM > referral faxed with visit note and insurance card. pt understands she will be contacted to schedule this appt. Reason appt pt is marcela breaux to see whomever can see her first pt needs consult to discuss official dx of hemochromatosis Diagnosis 1 Hemochromatosis (E83 .119) Referral Organization [facility] Referring Provider First Name Scotty Referring Provider Last Name Brendanmono Referring Provider [facility] marcy Referred Organization [facility] Referred Provider Ricci Garcia Referred Address [address] [place] [place], [place],[address] Referred Provider Specialty Hematology/O ncology Referral Priority [...] FOR VISIT (unrecogniz ed section and content) Reason Comments Hemachromatosis New patient consult Reason Comments Established Patient Care Teams (unrecognized sec tion and content) Team Status: Inactive Member Role Status Dates Scotty Ruiz DO Primary Care Provider Active Rajendra Angulo MD Attending Provider Active Team Status: Active Member Role Status Dates Scotty Ruiz DO Primary Care Provider Active Team Status: Inactive Member Role Status Dates Scotty Ruiz DO Primary Care Provider Active Mahendra Romo , PhD Attending Provider Active Back Stayer Relationship Specialty Start Date End Date Vincent Aguilar [address] [place] [address] PCP - General Neurology 07/29/22 Back Stayer Relationship Specialty Start Date End Date Vincent Aguilar [address] [place] [address] PCP - General Neurology 07/29/22 [...] or prosecute any alcohol or drug abuse patient.[facility] the event this information is protected by the Federal Confidentiality of Alcohol and Drug Abuse Patient Records regulations: The Federal rules restrict any use of the information to criminally investigate or prosecute any alcohol or drug abuse patient.[facility] Health[facility] the event this information is protected by the Federal Confidentiality of Alcohol and Drug Abuse Patient Records regulations: The Federal rules restrict any use of the information to criminally investigate or prosecute any alcohol or drug abuse patient.[facility] INFORMATION SOURCE (unrecogn ized section and content) DATE CREATED AUTHOR 08/30/[address] [facility] DATE CREATED AUTHOR AUTHOR'S ORGANIZ ATION 09/27/2022 Hola Delgadillo [facility] DATE CREATED AUTHOR AUTHOR'S ORGANIZ ATION 01/13/2023 [facility] DATE CREATED AUTHOR AUTHOR'S ORGANIZ ATION 06/04/2023 [facility] DATE CREATED AUTHOR AUTHOR'S ORGANIZ ATION 11/24/2023 [facility] FOR RECORDS PERTAINING TO PATIENTS WHO ARE [...] BE BASED ON THE PRIMARY CLINICAL RECORDS. [facility] CRE [facility]. provides no warranty or guarantee of the accuracy or completeness of information in this document.
== END 2023-11-29 12:50 | disposition home or self-care (01) ==
LOC: RAD 12:49
PROVIDERS: PCP Family Medicine; Visit Provider Obstetrics & Gynecology
DX: M81.0 Age-related osteoporosis without current pathological fracture (principal); Z78.0 Asymptomatic menopausal state
CPT/HCPCS: 77080

== ENCOUNTER 2023-12-20 10:23 | Outpatient (OUT) | payer MEDICARE, SELFPAY ==
--- OUTSIDE RECORDS SUMMARY | 2023-12-20 10:29 | XMS_ITS | CCD ---
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 Name Role Phone Scotty Ruiz Unavailable Rajendra Angulo Unavailable DO Scotty Ruiz Primary Care Provider [phone] MD Rajendra Angulo Attending Provider Clarissa, PhD Mahendra Attending Provider [phone] Vincent Aguilar Primary Care Provider Scotty Ruiz Primary Care Physician [phone] SCOTTY RUIZ Referring Unavailable SCOTTY RUIZ Primary Care Unavailable RICCI GARCIA Attending Unavailable VINCENT AGUILAR Primary Care Unavailable HYDEBORAHAR, RICCI Referring Unavailable VINCENT AGUILAR Primary Care Unavailable HUSSAINARRICCI Referring Unavailable RICCI GARCIA Attending Unavailable VINCENT AGUILAR Primary Care Unavailable HUSSAINAR, RICCI Referring Unavailable VINCENT AUGILAR Primary Care Unavailable ABHYANKAR, RICCI Referring Unavailable Opal Janie Unavailable Scotty Ruiz Referring Unavailabl e Kerry JONES Attending Unavailable Kerry JONES Attending Unavailable Kerry JONSE Attending Unavailable Scotty Ruiz Referring Unavailabl e Kerry JONES Attending Unavailable DO Scotty Ruiz Primary Care Provider Clarissa, PhD Mahendra Attending Provider [phone] [address] ., DR PAYNE Admitting Unavailable NILL [...] Unavailable Girvin, DO Fajardo Primary Care Provider [phone] MD Rajendra Angulo Attending Provider Mahendra Romo Attending Unavailable Mahendra Romo Admitting Unavailable Scotty Ruiz Primary Care Unavailable Rajendra Angulo Attending UnavailRajendra Small Admitting Unavaila ble Scotty Ruiz Primary Care Unavailable EZEQUIEL LESTER Attending Unavailable Allergies Allergy Classification Reported Allergen(s) Allergy Type Date of Onset Reaction(s) Facility (14 sources) Penicillin V Drug Allergy rash [place] Other (17 sources) Valproate; Translations: [divalproex sodium] Drug Allergy Mood [facility] [place] (4 sources) Penicillins; Translations: [PENICILLINS] Propensity to adverse reactions 8 [facility] (8 sources) PHENobarbital; Translations: [phenobarbital] Drug Allergy 8 Other (qualifier value) [facility] (4 sources) Penicillin; Translations: [penicillin] Drug Allergy Eruption of skin (disorder) [facility] (2 sources) Valproate; Translations: [Depakote] Drug Allergy [facility] Repository (1 source) benzoin resin Drug Allergy [facility] Rep[facility] (1 source) Penicillins Drug allergy (disorder) 5 [facility] Repository (1 source) Phenytoin Drug Allergy [facility] Rep[facility] (1 source) Unable to Assess Drug allergy (disorder) 9 [facility] Repository Medications Current Medications Medication Drug Class(es) [...] one(1) tablet d aily. Vitamin D (Ergocalciferol) 63047 UNIT (1 source) take 1 capsule by mouth every week Vitamin D (Ergocalciferol) 86358 UNIT TAKE 1 CAPSULE BY MOUTH ONCE [...] mouth every we ek Vitamin D (Ergocalciferol) 48142 UNIT TAKE 1 CAPSULE BY MOUTH ONCE A WEEK for 90 days Active take 1 capsule by mouth every we ek Vitamin D (Ergocalciferol) 36253 UNIT TAKE 1 CAPSULE BY MOUTH ONCE A WEEK Active estrogens, conjugated (fci) 0.625 mg oral tablet (3 sources) Estrogen [...] 07-14-2022 Chronic Other aftercare (5 sources) Other exterminator (current) drug therapy; Translations: [OTH PENITENTIARY CURRENT DRUG THERAPY] Onset: 07-14-2022 Resolved: 07-14-2022 [...] [Catalytic activity/Vol] 159 U/L Critically high 44-121 [facility] Comment on above: Performed By: #### A LKPISO #### [facility] [address] [place] [address] Dr. Cecilio Gale Bone Fraction: 36 % Normal 14-68 [facility] Comment on above: Performed By: #### A LKPISO #### [facility] [address] [place] [address] Dr. Cecilio Gale Intestinal Frac.: 6 % Normal 0-18 [facility] Comment on above: Performed By: #### A LKPISO #### [facility] [address] [address] [address] Cecilio Gale Liver Fraction: 59 % Normal 18-85 [facility] Comment on above: Performed By: #### A LKPISO #### [facility] [address] [place] [address] Dr. Cecilio Gale CBC AUTO DIFFon 01-11-2023 BASO # 0.0 103/ul Normal 0.0-0.1 [facility] Comment on above: Performed By: #### F T4, VITAD, FETIBC, FERR #### [facility] [address] [address] [address] Cecilio Gale Basophils/100 WBC (Bld) 0.9 % Normal 0.2-2.0 [facility] Comment on above: Performed By: #### F T4, VITAD, FETIBC, FERR #### [facility] [address] [place] [address] Dr. Cecilio Gale EO # 0.0 103/ul Normal 0.0-0.7 [facility] Comment on above: Performed By: #### F T4, VITAD, FETIBC, FERR #### [facility] [address] [place] [address] Dr. Cecilio Gale Eosinophils/100 WBC (Bld) 0.6 % Critically low 0.9-7.0 [facility] Comment on above: Performed By: #### F T4, VITAD, FETIBC, FERR #### [facility] [address] [place] [address] Dr. Cecilio Gale Erythrocyte distribution width (RBC) [Ratio] 11.8 % Normal 11.0-15.0 [facility] Comment on above: Performed By: #### F T4, VITAD, FETIBC, FERR #### [facility] [address] [place] [address] Dr. Cecilio Gale Hematocrit (Bld) [Volume fraction] 41.3 % Normal 36.0-48.0 [facility] Comment on above: Performed By: #### F T4, VITAD, FETIBC, FERR #### [facility] [address] [place] [address] Dr. Cecilio Gale Hemoglobin (Bld) [Mass/Vol] 14.5 g/dL Normal 12.0-16.0 [facility] Comment on above: Performed By: #### F T4, VITAD, FETIBC, FERR #### [facility] [address] [place] [address] Dr. Cecilio Gale IG # 0.01 10e3/ul Normal 0.00-0.03 [facility] Comment on above: Performed By: #### F T4, VITAD, FETIBC, FERR #### [facility] [address] [place] [address] Dr. Cecilio Gale IG % 0.2 % Normal 0.0-0.5 [facility] Comment on above: Performed By: #### F T4, VITAD, FETIBC, FERR #### [facility] [address] [place] [address] Dr. Cecilio Gale LYMPH # 1.8 103/ul Normal 1.2-3.8 [facility] Comment on above: Performed By: #### F T4, VITAD, FETIBC, FERR #### [facility] [address] [place] [address] Dr. Cecilio Gale Lymphocytes/100 WBC (Bld) 39.1 % Normal 20.5-60.0 [facility] Comment on above: Performed By: #### F T4, VITAD, FETIBC, FERR #### [facility] [address] [place] [address] Dr. Cecilio Gale MANUAL DIFF REQ NO Normal [facility] Comment on above: Performed By: #### F T4, VITAD, FETIBC, FERR #### [facility] [address] [place] [address] Dr. Cecilio Gale MCH (RBC) [Entitic mass] 32.7 pg Normal 26.7-34.0 [facility] Comment on above: Performed By: #### F T4, VITAD, FETIBC, FERR #### [facility] [address] [place] [address] Dr. Cecilio Gale MCHC (RBC) [Mass/Vol] 35.1 g/dL Normal 29.9-35.2 [facility] Comment on above: Performed By: #### F T4, VITAD, FETIBC, FERR #### [facility] [address] [place] [address] Dr. Cecilio Gale MCV (RBC) [Entitic vol] 93.0 fL Normal 81.0-99.0 [facility] Comment on above: Performed By: #### F T4, VITAD, FETIBC, FERR #### [facility] [address] [place] [address] Dr. Cecilio Gale MONO # 0.4 103/ul Normal 0.3-0.8 [facility] Comment on above: Performed By: #### F T4, VITAD, FETIBC, FERR #### [facility] [address] [place] [address] Dr. Cecilio Gale Monocytes/100 WBC (Bld) 9.2 % Normal 1.7-12.0 [facility] Comment on above: Performed By: #### F T4, VITAD, FETIBC, FERR #### [facility] [address] [place] [address] Dr. Cecilio Gale NEUT # 2.3 103/ul Normal 1.4-6.5 [facility] Comment on above: Performed By: #### F T4, VITAD, FETIBC, FERR #### [facility] [address] [place] [address] Dr. Cecilio Gale Neutrophils/100 WBC (Bld) 50.0 % Normal 43.0-75.0 [facility] Comment on above: Performed By: #### F T4, VITAD, FETIBC, FERR #### [facility] [address] [place] [address] Dr. Cecilio Gale Platelet mean volume (Bld) [Entitic vol] 8.6 fL Critically low 9.5-13.5 [facility] Comment on above: Performed By: #### F T4, VITAD, FETIBC, FERR #### [facility] [address] [place] [address] Dr. Cecilio Gale PLT 354 103/ul Normal 150-450 [facility] Comment on above: Performed By: #### F T4, VITAD, FETIBC, FERR #### [facility] [address] [place] [address] Dr. Cecilio Gale RBC 4.44 106/ul Normal 4.20-5.40 [facility] Comment on above: Performed By: #### F T4, VITAD, FETIBC, FERR #### [facility] [address] [place] [address] Dr. Cecilio Gale WBC 4.7 103/ul Normal 4.0-11.0 [facility] Comment on above: Performed By: #### F T4, VITAD, FETIBC, FERR #### [facility] [address] [place] [address] Dr. Cecilio Gale CULTURE URINEon 01-11-2023 CULTURE URINE Culture Observations: LIGHT GROWTH OF MIXED GENITAL CAMERON. NO POTENTIAL PATHOGENS SEEN. Normal [facility] Comment on above: Performed By: #### F T4, VITAD, FETIBC, FERR #### [facility] [address] [address] [address] Cecilio Gale FERRITINon 01-11-2023 Ferritin [Mass/Vol] 132.0 ng/mL Normal 8.0-252.0 [facility] Comment on above: Performed By: #### F T4, VITAD, FETIBC, FERR #### [facility] [address] [address] [address] Cecilio Gale FREE T3on 01-11-2023 FREE T3 2.03 pg/mlL Critically low 2.18-3.98 [facility] Comment on above: Performed By: #### F T4, VITAD, FETIBC, FERR #### [facility] [address] [place] [address] Dr. Cecilio Gale FREE T4on 01-11-2023 Free T4 [Mass/Vol] 0.82 ng/dL Normal 0.76-1.46 [facility] Comment on above: Performed By: #### F T4, VITAD, FETIBC, FERR #### [facility] [address] [place] [address] Dr. Cecilio Gale GLYCOHEMOGLOBIN A1Con 2022 ADA RECOMMENDATION SEE BELOW Normal [facility] Comment on above: Result Comment: ADA RECOMMENDED LIMIT 4.0 - 6.0 ADA THERAPEUTIC TARGET < 7.0 ACTION SUGGESTED > 7.0 Performed By: #### F T4, VITAD, FETIBC, FERR #### [facility] [address] [address] [address] Cecilio Gale Glucose [Mass/Vol] 103 mg/dL Normal [facility] Comment on above: Performed By: #### F T4, VITAD, FETIBC, FERR #### [facility] [address] [place] [address] Dr. Cecilio Gale HbA1c (Bld) [Mass fraction] 5.2 % Normal 4.5-6.2 [facility] Comment on above: Performed By: #### F T4, VITAD, FETIBC, FERR #### [facility] [address] [address] [address] Cecilio Gale IRON AND TIBCon 01-11-2023 % SATURATION 44.6 % Normal [facility] Comment on above: Performed By: #### F T4, VITAD, FETIBC, FERR #### [facility] [address] [address] [address] Cecilio Gale Iron [Mass/Vol] 121.0 ug/dL Normal 50.0-170.0 [facility] Comment on above: Performed By: #### F T4, VITAD, FETIBC, FERR #### [facility] [address] [address] [address] Cecilio Gale TIBC DIRECT 271.0 ug/dL Normal 250.0-450.0 [facility] Comment on above: Performed By: #### F T4, VITAD, FETIBC, FERR #### [facility] [address] [place] [address] Dr. Cecilio Gale LIPID PROFILEon 01-11-2023 CHOL-HDL RATIO NORM SEE BELOW Normal [facility] Comment on above: Result Comment: 3.3 - 4.4 LOW RISK 4.4 - 7.1 AVERAGE RISK 7.1 - 11.0 MODERATE RISK >11.0 HIGH RISK Performed By: #### F T4, VITAD, FETIBC, FERR #### [facility] [address] [place] [address] Dr. Cecilio Gale Cholesterol [Mass/Vol] 216 mg/dL Critically high <=200 [facility] Comment on above: Performed By: #### F T4, VITAD, FETIBC, FERR #### [facility] [address] [address] [address] Cecilio Gale Cholesterol in HDL [Mass/Vol] 96 mg/dL Critically high 40-60 [facility] Comment on above: Performed By: #### F T4, VITAD, FETIBC, FERR #### [facility] [address] [address] [address] Cecilio Gale Cholesterol in LDL [Mass/Vol] 103.0 mg/dL Normal [facility] Comment on above: Performed By: #### F T4, VITAD, FETIBC, FERR #### [facility] [address] [address] [address] Cecilio Gale Cholesterol.total/Cho lesterol in HDL [Mass ratio] 2.3 {ratio} Normal [facility] Comment on above: Performed By: #### F T4, VITAD, FETIBC, FERR #### [facility] [address] [address] [address] Cecilio Gale HDL NORMAL > or = 60 mg/dl - LOW CARDIOVASCULAR RISK <40 mg/dl - HIGH CARDIOVASCULAR RISK Normal [facility] Comment on above: Performed By: #### F T4, VITAD, FETIBC, FERR #### [facility] [address] [place] [address] Dr. Cecilio Gale LDL CALC NORMAL SEE BELOW Normal [facility] Comment on above: Result Comment: <100 mg/dl OPTIMAL 100 - 129 mg/dl NEAR OR ABOVE OPTIMAL 130 - 159 mg/dl BORDERLINE HIGH 160 - 189 mg/dl HIGH >190 mg/dl VERY HIGH Performed By: #### F T4, VITAD, FETIBC, FERR #### [facility] [address] [place] [address] Dr. Cecilio Gale Triglyceride [Mass/Vol] 86 mg/dL Normal <=150 [facility] Comment on above: Performed By: #### F T4, VITAD, FETIBC, FERR #### [facility] [address] [address] [address] Cecilio Gale VLDL CALC 17.2 mg/dL Normal [facility] Comment on above: Performed By: #### F T4, VITAD, FETIBC, FERR #### [facility] [address] [address] [address] Cecilio Gale PROF 14(COMP METB)on 023 Albumin [Mass/Vol] 3.8 g/dL Normal 3.4-5.0 [facility] Comment on above: Performed By: #### F T4, VITAD, FETIBC, FERR #### [facility] [address] [place] [address] Dr. Cecilio Gale Albumin/Globulin [Mass ratio] 1.0 {ratio} Normal [facility] Comment on above: Performed By: #### F T4, VITAD, FETIBC, FERR #### [facility] [address] [place] [address] Dr. Cecilio Gale ALP [Catalytic activity/Vol] 165 U/L Critically high 46-116 [facility] Comment on above: Performed By: #### F T4, VITAD, FETIBC, FERR #### [facility] [address] [place] [address] Dr. Cecilio Gale ALT [Catalytic activity/Vol] 24 U/L Normal 14-59 [facility] Comment on above: Performed By: #### F T4, VITAD, FETIBC, FERR #### [facility] [address] [place] [address] Dr. Cecilio Gale Anion gap [Moles/Vol] 14.6 mmol/L Normal [facility] Comment on above: Performed By: #### F T4, VITAD, FETIBC, FERR #### [facility] [address] [place] [address] Dr. Cecilio Gale AST [Catalytic activity/Vol] 19 U/L Normal 15-37 [facility] Comment on above: Performed By: #### F T4, VITAD, FETIBC, FERR #### [facility] [address] [place] [address] Dr. Cecilio Gale Bilirubin [Mass/Vol] 0.3 mg/dL Normal 0.2-1.0 [facility] Comment on above: Performed By: #### F T4, VITAD, FETIBC, FERR #### [facility] [address] [place] [address] Dr. Cecilio Gale Calcium [Mass/Vol] 8.9 mg/dL Normal 8.5-10.1 [facility] Comment on above: Performed By: #### F T4, VITAD, FETIBC, FERR #### [facility] [address] [place] [address] Dr. Cecilio Gale Chloride [Moles/Vol] 106 mmol/L Normal 98-107 [facility] Comment on above: Performed By: #### F T4, VITAD, FETIBC, FERR #### [facility] [address] [place] [address] Dr. Cecilio Gale CO2 [Moles/Vol] 25.3 mmol/L Normal 21.0-32.0 [facility] Comment on above: Performed By: #### F T4, VITAD, FETIBC, FERR #### [facility] [address] [place] [address] Dr. Cecilio Gale Creatinine [Mass/Vol] 0.72 mg/dL Normal 0.55-1.02 [facility] Comment on above: Performed By: #### F T4, VITAD, FETIBC, FERR #### [facility] [address] [place] [address] Dr. Cecilio Gale EGFR-AF ESTONIAN >60 Normal >=60 [facility] Comment on above: Performed By: #### F T4, VITAD, FETIBC, FERR #### [facility] [address] [place] [address] Dr. Cecilio Gale EGFR-NON AF ESTONIAN >60 Normal >=60 [facility] Comment on above: Performed By: #### F T4, VITAD, FETIBC, FERR #### [facility] [address] [place] [address] Dr. Cecilio Gale Globulin (S) [Mass/Vol] 3.7 g/dL Normal [facility] Comment on above: Performed By: #### F T4, VITAD, FETIBC, FERR #### [facility] [address] [place] [address] Dr. Cecilio Gale Glucose [Mass/Vol] 112 mg/dL Critically high 74-106 [facility] Comment on above: Performed By: #### F T4, VITAD, FETIBC, FERR #### [facility] [address] [place] [address] Dr. Cecilio Gale Potassium [Moles/Vol] 4.0 mmol/L Normal 3.5-5.1 [facility] Comment on above: Performed By: #### F T4, VITAD, FETIBC, FERR #### [facility] [address] [place] [address] Dr. Cecilio Gale Protein [Mass/Vol] 7.5 g/dL Normal 6.4-8.2 [facility] Comment on above: Performed By: #### F T4, VITAD, FETIBC, FERR #### [facility] [address] [place] [address] Dr. Cecilio Gale Sodium [Moles/Vol] 142 mmol/L Normal 136-145 [facility] Comment on above: Performed By: #### F T4, VITAD, FETIBC, FERR #### [facility] [address] [place] [address] Dr. Cecilio Gale Urea nitrogen [Mass/Vol] 9.0 mg/dL Normal 7.0-18.0 [facility] Comment on above: Performed By: #### F T4, VITAD, FETIBC, FERR #### [facility] [address] [place] [address] Dr. Cecilio Gale Urea nitrogen/Creatinine [Mass ratio] 12.5 mg/mg Normal [facility] Comment on above: Performed By: #### F T4, VITAD, FETIBC, FERR #### [facility] [address] [place] [address] Dr. Cecilio Gale TSHon 01-11-2023 TSH 1.685 uIU/mL Normal 0.358-3.740 [facility] Comment on above: Performed By: #### F T4, VITAD, FETIBC, FERR #### [facility] [address] [place] [address] Dr. Cecilio Gale UA RANDOM W/MICROSCOPICon BACTERIA NONE SEEN Normal NONE SEEN [facility] Comment on above: Performed By: #### F T4, VITAD, FETIBC, FERR #### [facility] [address] [place] [address] Dr. Cecilio Gale Bilirubin Ql (U) Negative Normal NEGATIVE [facility] Comment on above: Performed By: #### F T4, VITAD, FETIBC, FERR #### [facility] [address] [address] [address] Cecilio Gale CAST NONE SEEN Normal NONE SEEN [facility] Comment on above: Performed By: #### F T4, VITAD, FETIBC, FERR #### [facility] [address] [place] [address] Dr. Cecilio Gale Clarity (U) CLEAR Normal CLEAR [facility] Comment on above: Performed By: #### F T4, VITAD, FETIBC, FERR #### [facility] [address] [address] [address] Cecilio Gale Color (U) LT. YELLOW Normal YELLOW [facility] Comment on above: Performed By: #### F T4, VITAD, FETIBC, FERR #### [facility] [address] [place] [address] Dr. Cecilio Gale Crystals LM Nom (Urine sed) NONE SEEN Normal NONE SEEN [facility] Comment on above: Performed By: #### F T4, VITAD, FETIBC, FERR #### [facility] [address] [place] [address] Dr. Cecilio Gale Epithelial cells LM Ql (Urine sed) FEW Abnormal NONE SEEN /RARE [facility] Comment on above: Performed By: #### F T4, VITAD, FETIBC, FERR #### [facility] [address] [place] [address] Dr. Cecilio Gale Glucose Ql (U) Negative Normal NEGATIVE [facility] Comment on above: Performed By: #### F T4, VITAD, FETIBC, FERR #### [facility] [address] [place] [address] Dr. Ceciloi Gale Hemoglobin Ql (U) Negative Normal NEGATIVE [facility] Comment on above: Performed By: #### F T4, VITAD, FETIBC, FERR #### [facility] [address] [place] [address] Dr. Cecilio Gale Ketones Ql (U) Negative Normal NEGATIVE [facility] Comment on above: Performed By: #### F T4, VITAD, FETIBC, FERR #### [facility] [address] [place] [address] Dr. Cecilio Gale LEUKOCYTES Negative Normal NEGATIVE [facility] Comment on above: Performed By: #### F T4, VITAD, FETIBC, FERR #### [facility] [address] [place] [address] Dr. Cecilio Gale MUCOUS NONE SEEN Normal NONE SEEN [facility] Comment on above: Performed By: #### F T4, VITAD, FETIBC, FERR #### [facility] [address] [place] [address] Dr. Cecilio Gale Nitrite Ql (U) Negative Normal NEGATIVE [facility] Comment on above: Performed By: #### F T4, VITAD, FETIBC, FERR #### [facility] [address] [place] [address] Dr. Cecilio Gale pH (U) 7.5 [pH] Normal 5-9 [facility] Comment on above: Performed By: #### F T4, VITAD, FETIBC, FERR #### [facility] [address] [place] [address] Dr. Cecilio Gale RBC NONE SEEN Abnormal 0-2 [facility] Comment on above: Performed By: #### F T4, VITAD, FETIBC, FERR #### [facility] [address] [place] [address] Dr. Cecilio Gale SPEC GRAVITY 1.015 Normal 1.005-<=1.025 [facility] Comment on above: Performed By: #### F T4, VITAD, FETIBC, FERR #### [facility] [address] [place] [address] Dr. Cecilio Gale UA PROTEIN Negative Normal NEGATIVE/ TRACE [facility] Comment on above: Performed By: #### F T4, VITAD, FETIBC, FERR #### [facility] [address] [place] [address] Dr. Cecilio Gale Urobilinogen Qn (U) 0.2 {Anita'U}/dL Normal 0.2 - 1. 0 [facility] Comment on above: Performed By: #### F T4, VITAD, FETIBC, FERR #### [facility] [address] [place] [address] Dr. Cecilio Gale WBC NONE SEEN Normal NONE SEEN The [facility] Comment on above: Performed By: #### F T4, VITAD, FETIBC, FERR #### [facility] [address] [place] [address] Dr. Cecilio Gale VITAMIN D 25 OHon 01-11-2023 VIT D 25-OH 60.7 ng/mL Normal [facility] Comment on above: Performed By: #### F T4, VITAD, FETIBC, FERR #### [facility] [address] [place] [address] Dr. Cecilio Gale VIT D RANGES SEE BELOW Normal [facility] Comment on above: Result Comment: <20 ng/mL Vit D deficient 20 - <30 ng/mL Vit D insufficient 30 - 100 ng/mL Vit D sufficient >100 ng/mL Potential Toxicity Performed By: #### F T4, VITAD, FETIBC, FERR #### [facility] [address] [place] [address] Dr. Cecilio Gale LACOSAMIDEon 10-14-2022 Lacosamide 5.4 ug/mL Normal 5.0-10.0 [facility] Comment on above: Result Comment: This test was developed and its performance characteristics determined by [employer]. It has not been cleared or approved by the Food and Drug Administration. Limit of Detection 0.5 . Mean plasma concentrations following maintenance dose 200 mg/day 4.99 +/- 2.51 ug/mL 400 mg/day 9.35 +/- 4.22 ug/mL 600 mg/day 12.46 +/- 5.60 ug/mL Performed By: #### F T4, VITAD, FETIBC, FERR #### [facility] [address] [place] [address] Dr. Cecilio Gale LEVETIRACETAM, SERUM OR PLAS MAon 10-12-2022 Levetiracetam, S 26.4 ug/mL Normal 10.0-40.0 [facility] Comment on above: Performed By: #### F T4, VITAD, FETIBC, FERR #### [facility] [address] [place] [address] Dr. Cecilio Gale TEGRETOLon 10-08-2022 TEGRETOL <0.5 Critically low 4.0-12.0 [facility] Comment on above: Performed By: #### C ARB #### [facility] [address] [address] [address] Cecilio Gale General Surgery Office/Clini c [...] 50,000 intl units (1.25 mg) oral capsule, [address] International_Unit= 1 cap(s), Oral, qWeek Allergies Depakote [...] mRNA BNT-162b2 vax 01/17/2021 Given Prophylaxis Normal [facility] Comment on above: Result Comment: Elec tronically [...] neoplasm of colon Vitamin D deficiency Normal [facility] Reminderson 09-22-2022 Reminders - From: Delmy Rebollar LPN To: N - Clinical; Sent: 09/22/2022 15:29:30 EST Show up: 08/09/2025 07:00:00 EDT Subject: colonoscopy recall Due Date/Time: 09/09/2025 07:00:00 EST Reminder/Recall Patient is due for colonoscopy 09/09/2025 due to history of tubular adenoma. Normal [facility] Pathology Noteon 09-11-2022 Pathology Note [id number] #1.00CD:127 Normal [facility] Outside Colonoscopyon 2021 Outside Colonoscopy [id number] #1.00CD:127 Normal [facility] Lab Reportson 09-08-2022 Lab Reports [id number] #1.00CD:127 Normal [facility] Covid-19 PCR ([facility])on 08-10 SARS-CoV-2 (COVID-19) RNA CAL+probe Ql (Unsp spec) Not detected Normal NOT DETECTED [facility] Comment on above: Result Comment: This test is not yet approved or cleared by the [place] FDA. When there are no FDA-approved or cleared tests available, and other criteria are met, FDA can make tests available under an emergency access mechanism called an Emergency Use Authorization (EUA). The EUA for this test is supported by the Physical Medicine Teacher of Health and Human Service's (HHS's) declaration [...] consistent with SARS-CoV-2. Performed By: #### [facility] #### [facility] [address] [place] [address] Dr. Cecilio Gale Pre-Certification Formon Pre-Certification Form [id number] #1.00CD:127 Normal [facility] CBC W Auto Differential pane l (Bld)on 08-21-2022 Basophils (Bld) [#/Vol] 0.05 10*3/uL Normal <0.11 [facility] Comment on above: Order Comment: Speci men Type: BLOOD SPECIMEN Ordering Facility: [facility] Address: [address] [place] [address] Performed By: #### 5 7021-8 #### [facility] CLIA [id number] [address] [place] [address]855 Basophils/100 WBC (Bld) 0.8 % Normal [facility] Comment on above: Order Comment: Speci men Type: BLOOD SPECIMEN Ordering Facility: [facility] Address: [address] [place] [address] Performed By: #### 5 7021-8 #### [facility] CLIA [id number] [address] [place] [address]86 Differential cell count method Nom (Bld) Auto Normal [facility] Comment on above: Order Comment: Speci men Type: BLOOD SPECIMEN Ordering Facility: [facility] Address: [address] [place] [address] Performed By: #### 5 7021-8 #### [facility] CLIA [id number] [address] [place] [address] 69435 Eosinophils (Bld) [#/Vol] 10*3/uL Normal <0.46 [facility] Comment on above: Order Comment: Speci men Type: BLOOD SPECIMEN Ordering Facility: [facility] Address: [address] [place] [address] Performed By: #### 5 7021-8 #### [facility] CLIA [id number] [address] [place] [address] 74475 Eosinophils/100 WBC (Bld) 0.0 % Normal [facility] Comment on above: Order Comment: Speci men Type: BLOOD SPECIMEN Ordering Facility: [facility] Address: [address] [place] [address] Performed By: #### 5 7021-8 #### [facility] CLIA [id number] [address] [place] [address] 93797 Erythrocyte distribution width (RBC) [Ratio] 12.1 % Normal 11.5-15.0 [facility] Comment on above: Order Comment: Speci men Type: BLOOD SPECIMEN Ordering Facility: [facility] Address: [address] [place] [address] Performed By: #### 5 7021-8 #### [facility] CLIA [id number] [address] [place] [address] 24609 Hematocrit (Bld) [Volume fraction] 40.8 % Normal 36.0-46.0 [facility] Comment on above: Order Comment: Speci men Type: BLOOD SPECIMEN Ordering Facility: [facility] Address: [address] [place] [address] Performed By: #### 5 7021-8 #### [facility] CLIA [id number] [address] [place] [address] 96821 Hemoglobin (Bld) [Mass/Vol] 14.3 g/dL Normal 11.5-15.5 [facility] Comment on above: Order Comment: Speci men Type: BLOOD SPECIMEN Ordering Facility: [facility] Address: [address] [place] [address] Performed By: #### 5 7021-8 #### [facility] CLIA [id number] [address] [place] [address] 72798 IMMATURE GRAN % 0.2 % Normal [facility] Comment on above: Order Comment: Speci men Type: BLOOD SPECIMEN Ordering Facility: [facility] Address: [address] [place] [address] Performed By: #### 5 7021-8 #### [facility] CLIA [id number] [address] [place] [address] 00836 IMMATURE GRAN ABS <0.03 Normal <0.10 [facility] Comment on above: Order Comment: Speci men Type: BLOOD SPECIMEN Ordering Facility: [facility] Address: [address] [place], [place] [address] Performed By: #### 5 7021-8 #### [facility] CLIA [id number] [address] [place] [address] 25101 Lymphocytes (Bld) [#/Vol] 2.64 10*3/uL Normal 1.00-4.00 [facility] Comment on above: Order Comment: Speci men Type: BLOOD SPECIMEN Ordering Facility: [facility] Address: [address] [place] [address] Performed By: #### 5 7021-8 #### [facility] CLIA [id number] [address] [place] [address] 90794 Lymphocytes/100 WBC (Bld) 41.4 % Normal [facility] Comment on above: Order Comment: Speci men Type: BLOOD SPECIMEN Ordering Facility: [facility] Address: [address] [place] [address] Performed By: #### 5 7021-8 #### [facility] CLIA [id number] [address] [place] [address] 28775 MCH (RBC) [Entitic mass] 33.2 pg Normal 26.0-34.0 [facility] Comment on above: Order Comment: Speci men Type: BLOOD SPECIMEN Ordering Facility: [facility] Address: [address] [place] [address] Performed By: #### 5 7021-8 #### [facility] CLIA [id number] [address] [place] [address] 99395 MCHC (RBC) [Mass/Vol] 35.0 g/dL Normal 30.5-36.0 [facility] Comment on above: Order Comment: Speci men Type: BLOOD SPECIMEN Ordering Facility: [facility] Address: [address] [place] [address] Performed By: #### 5 7021-8 #### [facility] CLIA [id number] [address] [place] [address] 75079 MCV (RBC) [Entitic vol] 94.7 fL Normal 80.0-100.0 [facility] Comment on above: Order Comment: Speci men Type: BLOOD SPECIMEN Ordering Facility: [facility] Address: [facility] [address] Performed By: #### 5 7021-8 #### [facility] CLIA [id number] [address] [place] [address] 55820 Monocytes (Bld) [#/Vol] 0.61 10*3/uL Normal <0.87 [facility] Comment on above: Order Comment: Speci men Type: BLOOD SPECIMEN Ordering Facility: [facility] Address: [address] [place], [place] [address] Performed By: #### 5 7021-8 #### [facility] CLIA [id number] [address] [place] [address] 19867 Monocytes/100 WBC (Bld) 9.6 % Normal [facility] Comment on above: Order Comment: Speci men Type: BLOOD SPECIMEN Ordering Facility: [facility] Address: [address] [place], [place] [address] Performed By: #### 5 7021-8 #### [facility] CLIA [id number] [address] [place] [address] 88708 Neutrophils (Bld) [#/Vol] 3.06 10*3/uL Normal 1.45-7.50 [facility] Comment on above: Order Comment: Speci men Type: BLOOD SPECIMEN Ordering Facility: [facility] Address: [address] Performed By: #### 5 7021-8 #### [facility] CLIA [id number] [address] [place] [address] 62687 Neutrophils/100 WBC (Bld) 48.0 % Normal [facility] Comment on above: Order Comment: Speci men Type: BLOOD SPECIMEN Ordering Facility: [facility] Address: [address] [place], [place] [address] Performed By: #### 5 7021-8 #### [facility] CLIA [id number] [address] [place] [address] Nucleated RBC (Bld) [#/Vol] 10*3/uL Normal <0.01 [facility] Comment on above: Order Comment: Speci men Type: BLOOD SPECIMEN Ordering Facility: [facility] Address: [address] [place] [address] Performed By: #### 5 7021-8 #### [facility] CLIA [id number] [address] [place] [address] 57609 Nucleated RBC/100 WBC (Bld) [Ratio] 0.0 /100 WBC Normal [facility] Comment on above: Order Comment: Speci men Type: BLOOD SPECIMEN Ordering Facility: [facility] Address: [address] [place] [address] Performed By: #### 5 7021-8 #### [facility] CLIA [id number] [address] [place] [address] 13019 Platelet mean volume (Bld) [Entitic vol] 8.3 fL Low 9.0-12.7 [facility] Comment on above: Order Comment: Speci men Type: BLOOD SPECIMEN Ordering Facility: [facility] Address: [address] [place] [address] Performed By: #### 5 7021-8 #### [facility] CLIA [id number] [address] [place] [address] 03812 Platelets (Bld) [#/Vol] 345 10*3/uL Normal 150-400 [facility] Comment on above: Order Comment: Speci men Type: BLOOD SPECIMEN Ordering Facility: [facility] Address: [address] [place] [address] Performed By: #### 5 7021-8 #### [facility] CLIA [id number] [address] [place] [address] 17081 RBC (Bld) [#/Vol] 4.31 10*6/uL Normal 3.90-5.20 [facility] Comment on above: Order Comment: Speci men Type: BLOOD SPECIMEN Ordering Facility: [facility] Address: [address] [place] [address] Performed By: #### 5 7021-8 #### [facility] CLIA [id number] [address] [place] [address] 56907 WBC (Bld) [#/Vol] 6.37 10*3/uL Normal 3.70-11.00 [facility] Comment on above: Order Comment: Speci men Type: BLOOD SPECIMEN Ordering Facility: [facility] Address: [address] [place] [address] Performed By: #### 5 7021-8 #### [facility] CLIA [id number] [address] [place] [address] 31592 Comprehensive metabolic 2000 panelon 08-21-2022 Albumin [Mass/Vol] 4.3 g/dL Normal 3.9-4.9 [facility] Comment on above: Order Comment: Speci men Type: BLOOD SPECIMEN Ordering Facility: [facility] Address: [address] [place] [address] Performed By: #### 2 4323-8 #### [facility] CLIA [id number] [address] [place] [address] 68878 ALP [Catalytic activity/Vol] 167 U/L High 34-123 [facility] Comment on above: Order Comment: Speci men Type: BLOOD SPECIMEN Ordering Facility: [facility] Address: [address] [place], [place] [address] Performed By: #### 2 4323-8 #### [facility] CLIA [id number] [address] [place] [address] 27154 ALT [Catalytic activity/Vol] 13 U/L Normal 7-38 [facility] Comment on above: Order Comment: Speci men Type: BLOOD SPECIMEN Ordering Facility: [facility] Address: [address] [place] [address] Performed By: #### 2 4323-8 #### [facility] CLIA [id number] [address] [place] [address] Anion gap [Moles/Vol] 9 mmol/L Normal 9-18 [facility] Comment on above: Order Comment: Speci men Type: BLOOD SPECIMEN Ordering Facility: [facility] Address: [address] [place] [address] Performed By: #### 2 4323-8 #### [facility] CLIA [id number] [address] [place] [address] AST [Catalytic activity/Vol] 16 U/L Normal 13-35 [facility] Comment on above: Order Comment: Speci men Type: BLOOD SPECIMEN Ordering Facility: [facility] Address: [address] [place] [address] Performed By: #### 2 4323-8 #### [facility] CLIA [id number] [address] [place] [address] 99582 Bilirubin [Mass/Vol] 0.3 mg/dL Normal 0.2-1.3 [facility] Comment on above: Order Comment: Speci men Type: BLOOD SPECIMEN Ordering Facility: [facility] Address: [address] [place] [address] Performed By: #### 2 4323-8 #### [facility] CLIA [id number] [address] [place] [address] 37797 Calcium [Mass/Vol] 9.5 mg/dL Normal 8.5-10.2 [facility] Comment on above: Order Comment: Speci men Type: BLOOD SPECIMEN Ordering Facility: [facility] Address: [address] [place] [address] Performed By: #### 2 4323-8 #### [facility] CLIA [id number] [address] [place] [address] 37194 Chloride [Moles/Vol] 98 mmol/L Normal 97-105 [facility] Comment on above: Order Comment: Speci men Type: BLOOD SPECIMEN Ordering Facility: [facility] Address: [address] [place] [address] Performed By: #### 2 4323-8 #### [facility] CLIA [id number] [address] [place] [address] CO2 [Moles/Vol] 28 mmol/L Normal 22-30 [facility] Comment on above: Order Comment: Speci men Type: BLOOD SPECIMEN Ordering Facility: [facility] Address: [address] [place] [address] Performed By: #### 2 4323-8 #### [facility] CLIA [id number] [address] [place] [address] 70253 Creatinine [Mass/Vol] 0.74 mg/dL Normal 0.58-0.96 [facility] Comment on above: Order Comment: Speci men Type: BLOOD SPECIMEN Ordering Facility: [facility] Address: [address] [place] [address] Performed By: #### 2 4323-8 #### [facility] CLIA [id number] [address] [place] [address] 05011 ESTIMATED GLOMERULAR FILTRATION RATE 96 mL/min/1.73m??? Normal >=60 [facility] Comment on above: Order Comment: Speci men Type: BLOOD SPECIMEN Ordering Facility: [facility] Address: [address] [place] [address] Result Comment: Domonique mated Glomerular Filtration Rate [...] GFR. Performed By: #### 2 4323-8 #### [facility] CLIA [id number] [address] [place] [address] 58515 Glucose [Mass/Vol] 110 mg/dL High 74-99 [facility] Comment on above: Order Comment: Speci men Type: BLOOD SPECIMEN Ordering Facility: [facility] Address: [address] [place] [address] Result Comment: The [place] [employer] (ADA) provides guidance for cutoff [...] Standards of Medical Care in Diabetes 2016, [place] [employer]. Diabetes Care. 2016.39(Suppl 1). Performed By: #### 2 4323-8 #### [facility] CLIA [id number] [address] [place] [address] 79578 Potassium [Moles/Vol] 4.6 mmol/L Normal 3.7-5.1 [facility] Comment on above: Order Comment: Speci men Type: BLOOD SPECIMEN Ordering Facility: [facility] Address: [address] [address] Performed By: #### 2 4323-8 #### [facility] CLIA [id number] [address] [place] [address] 92357 Protein [Mass/Vol] 7.1 g/dL Normal 6.3-8.0 [facility] Comment on above: Order Comment: Speci men Type: BLOOD SPECIMEN Ordering Facility: [facility] Address: [address] [address] Performed By: #### 2 4323-8 #### [facility] CLIA [id number] [address] [place] [address] 82818 Sodium [Moles/Vol] 135 mmol/L Low 136-144 [facility] Comment on above: Order Comment: Speci men Type: BLOOD SPECIMEN Ordering Facility: [facility] Address: [address] [address] Performed By: #### 2 4323-8 #### [facility] CLIA [id number] [address] [place] [address] Urea nitrogen [Mass/Vol] 10 mg/dL Normal 7-21 [facility] Comment on above: Order Comment: Speci men Type: BLOOD SPECIMEN Ordering Facility: [facility] Address: [address] [place] [address] Performed By: #### 2 4323-8 #### [facility] CLIA [id number] [address] [place] [address] Ferritin SerPl-mCncon 2021 Ferritin [Mass/Vol] 196.0 ng/mL Normal 14.7-205.1 [facility] Comment on above: Order Comment: Speci men Type: BLOOD SPECIMEN Ordering Facility: [facility] Address: [address] [place] [address] Performed By: #### 5 0190-8, 2275-4 #### [facility] CLIA [id number] [address] [place] [address] [place] Iron and Iron binding capaci ty panelon 08-21-2022 Iron [Mass/Vol] 133 ug/dL Normal 41-186 [facility] Comment on above: Order Comment: Speci men Type: BLOOD SPECIMEN Ordering Facility: [facility] Address: [address] [place] [address] Performed By: #### 5 0190-8, 2275-4 #### [facility] CLIA [id number] [address] [place] [address] [place] Iron binding capacity [Mass/Vol] 280 ug/dL Normal 232-386 [facility] Comment on above: Order Comment: Speci men Type: BLOOD SPECIMEN Ordering Facility: [facility] Address: [address] [place], [place] [address] Performed By: #### 5 0190-8, 2275-4 #### [facility] CLIA [id number] [address] [place] [address] [place] Iron/TIBC [Molar ratio] 47.5 % Normal 15.0-57.0 [facility] Comment on above: Order Comment: Speci men Type: BLOOD SPECIMEN Ordering Facility: [facility] Address: [address] [place] [address] [place] [address] Performed By: #### 5 0190-8, 2276-4 #### [facility] CLIA [id number] [address] [place] [address] [place] Consent for Procedure/Surger yon 08-05-2022 Consent for Procedure/Surgery [id number] Normal [facility] Ambulatory Visit Summaryon 0 08-04-2022 Ambulatory Visit [...] neoplasm of colon Vitamin D deficiency Normal [facility] Comprehensive metabolic 2000 panelon 07-30-2022 Albumin [Mass/Vol] 4.4 g/dL 3.9 - 4.9 g/dL [facility] ALP [Catalytic activity/Vol] 166 U/L High 34 - 123 U/L [facility] ALT [Catalytic activity/Vol] 18 U/L 7 - 38 U/L [facility] Anion gap [Moles/Vol] 11 mmol/L 9 - 18 mmol/L [facility] AST [Catalytic activity/Vol] 21 U/L 13 - 35 U/L [facility] Bilirubin [Mass/Vol] 0.4 mg/dL 0.2 - 1 .3 mg/dL [facility] Calcium [Mass/Vol] 9.5 mg/dL 8.5 - 10. 2 mg/dL [facility] Chloride [Moles/Vol] 98 mmol/L 97 - 10 5 mmol/L [facility] CO2 [Moles/Vol] 25 mmol/L 22 - 30 mmol/L [facility] Creatinine [Mass/Vol] 0.66 mg/dL 0.58 - 0.96 mg/dL [facility] Estimated Glomerular Filtration Rate 104 mL/min/1.73m >=60 mL/min/1.73m [facility] Glucose [Mass/Vol] 91 mg/dL 74 - 99 mg/dL [facility] Potassium [Moles/Vol] 4.8 mmol/L 3.7 - 5.1 mmol/L [facility] Protein [Mass/Vol] 7.3 g/dL 6.3 - 8.0 g/dL [facility] Sodium [Moles/Vol] 134 mmol/L Low 136 - 144 mmol/L [facility] Urea nitrogen [Mass/Vol] 8 mg/dL 7 - 21 mg/dL [facility] FERRITIN BLDon 07-30-2022 Ferritin [Mass/Vol] 176.0 ng/mL 14.7 - 2 05.1 ng/mL [facility] Iron and Iron binding capaci ty panelon 07-30-2022 Iron [Mass/Vol] 149 ug/dL 41 - 186 ug/dL [facility] Iron binding capacity [Mass/Vol] 273 ug/dL 232 - 386 ug/dL [facility] Iron/TIBC [Molar ratio] 54.6 % 15.0 - 57.0 % [facility] CBC W Auto Differential pane l (Bld)on 07-29-2022 Basophils (Bld) [#/Vol] 0.05 10*3/uL Normal <0.11 [facility] Comment on above: Order Comment: Speci men Type: BLOOD SPECIMEN Ordering Facility: [facility] Address: [address] [place] [address] Performed By: #### 5 7021-8 #### [facility] CLIA [id number] [address] [place] [address] Basophils/100 WBC (Bld) 0.9 % Normal [facility] Comment on above: Order Comment: Speci men Type: BLOOD SPECIMEN Ordering Facility: [facility] Address: [address] [place] [place] [address] Performed By: #### 5 7021-8 #### [facility] CLIA [id number] [address] [place] [address] Differential cell count method Nom (Bld) Auto Normal [facility] Comment on above: Order Comment: Speci men Type: BLOOD SPECIMEN Ordering Facility: [facility] Address: [facility] [address] Performed By: #### 5 7021-8 #### [facility] CLIA [id number] [address] [place] [address] Eosinophils (Bld) [#/Vol] 10*3/uL Normal <0.46 [facility] Comment on above: Order Comment: Speci men Type: BLOOD SPECIMEN Ordering Facility: [facility] Address: [address] [place] [address] Performed By: #### 5 7021-8 #### [facility] CLIA [id number] [address] [place] [address] Eosinophils/100 WBC (Bld) 0.0 % Normal [facility] Comment on above: Order Comment: Speci men Type: BLOOD SPECIMEN Ordering Facility: [facility] Address: [address] [place] [address] Performed By: #### 5 7021-8 #### [facility] CLIA [id number] [address] [place] [address] Erythrocyte distribution width (RBC) [Ratio] 12.1 % Normal 11.5-15.0 [facility] Comment on above: Order Comment: Speci men Type: BLOOD SPECIMEN Ordering Facility: [facility] Address: [address] [place], [place] [address] Performed By: #### 5 7021-8 #### [facility] CLIA [id number] [address] [place] [address] Hematocrit (Bld) [Volume fraction] 41.6 % Normal 36.0-46.0 [facility] Comment on above: Order Comment: Speci men Type: BLOOD SPECIMEN Ordering Facility: [facility] Address: [address] [place], [place] [address] Performed By: #### 5 7021-8 #### [facility] CLIA [id number] [address] [place] [address] Hemoglobin (Bld) [Mass/Vol] 14.5 g/dL Normal 11.5-15.5 [facility] Comment on above: Order Comment: Speci men Type: BLOOD SPECIMEN Ordering Facility: [facility] Address: [address] [place] [address] Performed By: #### 5 7021-8 #### [facility] CLIA [id number] [address] [place] [address] IMMATURE GRAN % 0.3 % Normal [facility] Comment on above: Order Comment: Speci men Type: BLOOD SPECIMEN Ordering Facility: [facility] Address: [address] [place] [address] Performed By: #### 5 7021-8 #### [facility] CLIA [id number] [address] [place] [address] IMMATURE GRAN ABS <0.03 Normal <0.10 [facility] Comment on above: Order Comment: Speci men Type: BLOOD SPECIMEN Ordering Facility: [facility] Address: [address] [place] [address] Performed By: #### 5 7021-8 #### [facility] CLIA [id number] [address] [place] [address] Lymphocytes (Bld) [#/Vol] 2.09 10*3/uL Normal 1.00-4.00 [facility] Comment on above: Order Comment: Speci men Type: BLOOD SPECIMEN Ordering Facility: [facility] Address: [address] [place] [address] Performed By: #### 5 7021-8 #### [facility] CLIA [id number] [address] [place] [address] Lymphocytes/100 WBC (Bld) 36.0 % Normal [facility] Comment on above: Order Comment: Speci men Type: BLOOD SPECIMEN Ordering Facility: [facility] Address: [address] [place] [address] Performed By: #### 5 7021-8 #### [facility] CLIA [id number] [address] [place] [address]753 MCH (RBC) [Entitic mass] 33.0 pg Normal 26.0-34.0 [facility] Comment on above: Order Comment: Speci men Type: BLOOD SPECIMEN Ordering Facility: [facility] Address: [address] [place] [address] Performed By: #### 5 7021-8 #### [facility] CLIA [id number] [address] [place] [address]75 MCHC (RBC) [Mass/Vol] 34.9 g/dL Normal 30.5-36.0 [facility] Comment on above: Order Comment: Speci men Type: BLOOD SPECIMEN Ordering Facility: [facility] Address: [address] [place] [address] Performed By: #### 5 7021-8 #### [facility] CLIA [id number] [address] [place] [address]75 MCV (RBC) [Entitic vol] 94.8 fL Normal 80.0-100.0 [facility] Comment on above: Order Comment: Speci men Type: BLOOD SPECIMEN Ordering Facility: [facility] Address: [address] [place] [address] Performed By: #### 5 7021-8 #### [facility] CLIA [id number] [address] [place] [address]13 Monocytes (Bld) [#/Vol] 0.44 10*3/uL Normal <0.87 [facility] Comment on above: Order Comment: Speci men Type: BLOOD SPECIMEN Ordering Facility: [facility] Address: [address] [place] [address] Performed By: #### 5 7021-8 #### [facility] CLIA [id number] [address] [place] [address] 13452 Monocytes/100 WBC (Bld) 7.6 % Normal [facility] Comment on above: Order Comment: Speci men Type: BLOOD SPECIMEN Ordering Facility: [facility] Address: [address] [place] [address] Performed By: #### 5 7021-8 #### [facility] CLIA [id number] [address] [place] [address]45 Neutrophils (Bld) [#/Vol] 3.21 10*3/uL Normal 1.45-7.50 [facility] Comment on above: Order Comment: Speci men Type: BLOOD SPECIMEN Ordering Facility: [facility] Address: [address] [place], [place] [address] Performed By: #### 5 7021-8 #### [facility] CLIA [id number] [address] [place] [address]75 Neutrophils/100 WBC (Bld) 55.2 % Normal [facility] Comment on above: Order Comment: Speci men Type: BLOOD SPECIMEN Ordering Facility: [facility] Address: [address] [place] [address] Performed By: #### 5 7021-8 #### [facility] CLIA [id number] [address] [place] [address]24 Nucleated RBC (Bld) [#/Vol] 10*3/uL Normal <0.01 [facility] Comment on above: Order Comment: Speci men Type: BLOOD SPECIMEN Ordering Facility: [facility] Address: [address] [place], [place] [address] Performed By: #### 5 7021-8 #### [facility] CLIA [id number] [address] [place] [address]59 Nucleated RBC/100 WBC (Bld) [Ratio] 0.0 /100 WBC Normal [facility] Comment on above: Order Comment: Speci men Type: BLOOD SPECIMEN Ordering Facility: [facility] Address: [address] [place], [place] [address] Performed By: #### 5 7021-8 #### [facility] CLIA [id number] [address] [place] [address]44 Platelet mean volume (Bld) [Entitic vol] 8.6 fL Low 9.0-12.7 [facility] Comment on above: Order Comment: Speci men Type: BLOOD SPECIMEN Ordering Facility: [facility] Address: [address] [place] [address] Performed By: #### 5 7021-8 #### [facility] CLIA [id number] [address] [place] [address]47 Platelets (Bld) [#/Vol] 311 10*3/uL Normal 150-400 [facility] Comment on above: Order Comment: Speci men Type: BLOOD SPECIMEN Ordering Facility: [facility] Address: [address] [place] [address] Performed By: #### 5 7021-8 #### [facility] CLIA [id number] [address] [place] [address]321 RBC (Bld) [#/Vol] 4.39 10*6/uL Normal 3.90-5.20 [facility] Comment on above: Order Comment: Speci men Type: BLOOD SPECIMEN Ordering Facility: [facility] Address: [address] [place] [address] Performed By: #### 5 7021-8 #### [facility] CLIA [id number] [address] [place] [address] WBC (Bld) [#/Vol] 5.81 10*3/uL Normal 3.70-11.00 [facility] Comment on above: Order Comment: Speci men Type: BLOOD SPECIMEN Ordering Facility: [facility] Address: [address] [place] [address] Performed By: #### 5 7021-8 #### [facility] CLIA [id number] [address] [place] [address] 24711 Abs Immature Gran <0.10 k/uL [facility] Basophils (Bld) [#/Vol] 0.05 10*3/uL <0.11 k/uL [facility] Basophils/100 WBC (Bld) 0.9 % [facility] Differential cell count method Nom (Bld) Auto [facility] Eosinophils (Bld) [#/Vol] <0.46 k/uL [facility] Eosinophils/100 WBC (Bld) 0.0 % [facility] Erythrocyte distribution width (RBC) [Ratio] 12.1 % 11.5 - 15.0 % [facility] Hematocrit (Bld) [Volume fraction] 41.6 % 36.0 - 46.0 % [facility] Hemoglobin (Bld) [Mass/Vol] 14.5 g/dL 11.5 - 15.5 g/dL [facility] Immature Gran % 0.3 % [facility] Lymphocytes (Bld) [#/Vol] 2.09 10*3/uL 1.00 - 4.00 k/uL [facility] Lymphocytes/100 WBC (Bld) 36.0 % [facility] MCH (RBC) [Entitic mass] 33.0 pg 26.0 - 34.0 pg [facility] MCHC (RBC) [Mass/Vol] 34.9 g/dL 30.5 - 36.0 g/dL [facility] MCV (RBC) [Entitic vol] 94.8 fL 80.0 - 100.0 fL [facility] Monocytes (Bld) [#/Vol] 0.44 10*3/uL <0.87 k/uL [facility] Monocytes/100 WBC (Bld) 7.6 % [facility] Neutrophils (Bld) [#/Vol] 3.21 10*3/uL 1.45 - 7.50 k/uL [facility] Neutrophils/100 WBC (Bld) 55.2 % [facility] Nucleated RBC (Bld) [#/Vol] <0.01 k/uL [facility] Nucleated RBC/100 WBC (Bld) [Ratio] 0.0 /100 WBC [facility] Platelet mean volume (Bld) [Entitic vol] 8.6 fL Low 9.0 - 12.7 fL [facility] Platelets (Bld) [#/Vol] 311 10*3/uL 150 - 400 k/uL [facility] RBC (Bld) [#/Vol] 4.39 10*6/uL 3.90 - 5.2 0 m/uL [facility] WBC (Bld) [#/Vol] 5.81 10*3/uL 3.70 - 11. 00 k/uL [facility] CNOVSPon 07-29-2022 CNOVSP Visit (SP) Office ([facility]) MIKEY MONTEZ ([id number]) 1965 F Date Time Provider Department 07/29/22 11:00 AM RICCI GARCIA During your visit today, we recorded the following information about you: Temperature Pulse Respiration Blood pressure 97.1 degrees 83/minute 16/minute 152/89 Weight Height 123 kg 1.651 m Ricci Garcia MD 07/30/2022 12:33 PM Signed NAME: Mikey Montez [facility] NO.: [id number] DATE OF SERVICE: July 29, 2022 Referring [...] COLONSCOPY SCR (more content not included)... Normal [facility] Comprehensive metabolic 2000 panelon 07-29-2022 Albumin [Mass/Vol] 4.4 g/dL Normal 3.9-4.9 [facility] Comment on above: Order Comment: Speci men Type: BLOOD SPECIMEN Ordering Facility: [facility] Address: [address] [place] [address] Performed By: #### 2 4323-8 #### [facility] CLIA [id number] [address] [place] [address] [place] ALP [Catalytic activity/Vol] 166 U/L High 34-123 [facility] Comment on above: Order Comment: Speci men Type: BLOOD SPECIMEN Ordering Facility: [facility] Address: [address] [place] [address] Performed By: #### 2 4323-8 #### [facility] CLIA [id number] [address] [place] [address] [place] ALT [Catalytic activity/Vol] 18 U/L Normal 7-38 [facility] Comment on above: Order Comment: Speci men Type: BLOOD SPECIMEN Ordering Facility: [facility] Address: [address] [place], [place] [address] Performed By: #### 2 4323-8 #### [facility] CLIA [id number] [address] [place] [address] [place] Anion gap [Moles/Vol] 11 mmol/L Normal 9-18 [facility] Comment on above: Order Comment: Speci men Type: BLOOD SPECIMEN Ordering Facility: [facility] Address: [address] [place], [place] [address] Performed By: #### 2 4323-8 #### [facility] CLIA [id number] [address] [place] [address] [place] AST [Catalytic activity/Vol] 21 U/L Normal 13-35 [facility] Comment on above: Order Comment: Speci men Type: BLOOD SPECIMEN Ordering Facility: [facility] Address: [address] [place], [place] [address] Performed By: #### 2 4323-8 #### [facility] CLIA [id number] [address] [place] [address] [place] Bilirubin [Mass/Vol] 0.4 mg/dL Normal 0.2-1.3 [facility] Comment on above: Order Comment: Speci men Type: BLOOD SPECIMEN Ordering Facility: [facility] Address: [address] [place], [place] [address] Performed By: #### 2 4323-8 #### [facility] CLIA [id number] [address] [place] [address] [place] Calcium [Mass/Vol] 9.5 mg/dL Normal 8.5-10.2 [facility] Comment on above: Order Comment: Speci men Type: BLOOD SPECIMEN Ordering Facility: [facility] Address: [address] [place], [place] [address] Performed By: #### 2 4323-8 #### [facility] CLIA [id number] [address] [place] [address] [place] Chloride [Moles/Vol] 98 mmol/L Normal 97-105 [facility] Comment on above: Order Comment: Speci men Type: BLOOD SPECIMEN Ordering Facility: [facility] Address: [address] [place] [address] Performed By: #### 2 4323-8 #### [facility] CLIA [id number] [address] [place] [address] [place] CO2 [Moles/Vol] 25 mmol/L Normal 22-30 [facility] Comment on above: Order Comment: Speci men Type: BLOOD SPECIMEN Ordering Facility: [facility] Address: [address] [place] [address] Performed By: #### 2 4323-8 #### [facility] CLIA [id number] [address] [place] [address] [place] [address] [facility] Creatinine [Mass/Vol] 0.66 mg/dL Normal 0.58-0.96 [facility] Comment on above: Order Comment: Speci men Type: BLOOD SPECIMEN Ordering Facility: [facility] Address: [address] [place] [address] Performed By: #### 2 4323-8 #### [facility] CLIA [id number] [address] [place] [address] OF REFUGIO ESTIMATED GLOMERULAR FILTRATION RATE 104 mL/min/1.73m??? Normal >=60 [facility] Comment on above: Order Comment: Speci men Type: BLOOD SPECIMEN Ordering Facility: [facility] Address: [address] [place] [address] Result Comment: Domonique mated Glomerular Filtration Rate [...] GFR. Performed By: #### 2 4323-8 #### [facility] CLIA [id number] [address] [place] [address] [place] Glucose [Mass/Vol] 91 mg/dL Normal 74-99 [facility] Comment on above: Order Comment: Jesus bundy Type: BLOOD SPECIMEN Ordering Facility: [facility] Address: [address] [place] [address] Result Comment: The [place] [employer] (ADA) provides guidance for cutoff [...] Standards of Medical Care in Diabetes 2016, [place] [employer]. Diabetes Care. 2016.39(Suppl 1). Performed By: #### 2 4323-8 #### [facility] CLIA [id number] [address] [place] [address] [place] Potassium [Moles/Vol] 4.8 mmol/L Normal 3.7-5.1 [facility] Comment on above: Order Comment: Jesus bundy Type: BLOOD SPECIMEN Ordering Facility: [facility] Address: [address] [place], [place] [address] Performed By: #### 2 4323-8 #### [facility] CLIA [id number] [address] [place] [address] [place] Protein [Mass/Vol] 7.3 g/dL Normal 6.3-8.0 [facility] Comment on above: Order Comment: Jesus bundy Type: BLOOD SPECIMEN Ordering Facility: [facility] Address: [address] [place] [address] Performed By: #### 2 4323-8 #### [facility] CLIA [id number] [address] [place] [address] [place] Sodium [Moles/Vol] 134 mmol/L Low 136-144 [facility] Comment on above: Order Comment: Speci men Type: BLOOD SPECIMEN Ordering Facility: [facility] Address: [address] [place] [address] Performed By: #### 2 4323-8 #### [facility] CLIA [id number] [address] [place] [address] [place] Urea nitrogen [Mass/Vol] 8 mg/dL Normal 05-28 [facility] Comment on above: Order Comment: Speci men Type: BLOOD SPECIMEN Ordering Facility: [facility] Address: [address] [place] [address] Performed By: #### 2 4323-8 #### [facility] CLIA [id number] [address] [place] [address] [place] Ferritin SerPl-mCncon 2021 Ferritin [Mass/Vol] 176.0 ng/mL Normal 14.7-205.1 [facility] Comment on above: Order Comment: Speci men Type: BLOOD SPECIMEN Ordering Facility: [facility] Address: [address] [place] [address] Performed By: #### 2 276-4, 41483-9 #### [facility] CLIA [id number] [address] [place], [place] [address] [place] HFE (HEMOCHROMATOSIS)on 07-10 INTERPRETATION (HEMDNA) Normal [facility] Comment on above: Order Comment: Speci men Type: BLOOD SPECIMEN Ordering Facility: 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 Disclaimer: This test was developed and its performance characteristics determined by [facility] [place] ([facility] It has not been cleared or approved by the FDA. -[facility] is regulated under CLIA as certified to perform high- complexity testing. This test is used for clinical purposes. It should not be regarded as investigational or for research. Testing and interpretation performed at [facility], [address] [place] [address]. CLIA Number: [id number] As reviewed by Joshua Mendoza, PhD, FAC Performed By: #### H ROSALIE #### CLARITY ROSEANNE DELUCA CLIA [id number] [address] [place], [place] [address] [address] [place] Iron and Iron binding capaci ty panelon 07-29-2022 Iron [Mass/Vol] 149 ug/dL Normal 41-186 [facility] Comment on above: Order Comment: Speci men Type: BLOOD SPECIMEN Ordering Facility: [facility] Address: [address] [place], [place] [id number] Performed By: #### 2 276-4, 86200-9 #### [facility] CLIA [id number] [address] [place] [address] [place] Iron binding capacity [Mass/Vol] 273 ug/dL Normal 232-386 [facility] Comment on above: Order Comment: Speci men Type: BLOOD SPECIMEN Ordering Facility: [facility] Address: [address] [place] [address] Performed By: #### 2 276-4, 35252-2 #### [facility] CLIA [id number] [address] [place] [address] [place] Iron/TIBC [Molar ratio] 54.6 % Normal 15.0-57.0 [facility] Comment on above: Order Comment: Speci men Type: BLOOD SPECIMEN Ordering Facility: [facility] Address: [address] [place] [address] Performed By: #### 2 276-4, 74600-8 #### [facility] CLIA [id number] [address] [place] [address] [place] UA RANDOM W/MICROSCOPICon BACTERIA NONE SEEN Normal NONE SEEN [facility] Comment on above: Performed By: #### F T4, VITAD, FETIBC, FERR #### [facility] [address] [place] [address] Dr. Cecilio Gale Bilirubin Ql (U) Negative Normal NEGATIVE [facility] Comment on above: Performed By: #### F T4, VITAD, FETIBC, FERR #### [facility] [address] [address] [address] Cecilio Gale CAST NONE SEEN Normal NONE SEEN [facility] Comment on above: Performed By: #### F T4, VITAD, FETIBC, FERR #### [facility] [address] [address] [address] Cecilio Gale Clarity (U) CLEAR Normal CLEAR [facility] Comment on above: Performed By: #### F T4, VITAD, FETIBC, FERR #### [facility] [address] [place] [address] Dr. Cecilio Gale Color (U) LT. YELLOW Normal YELLOW [facility] Comment on above: Performed By: #### F T4, VITAD, FETIBC, FERR #### [facility] [address] [place] [address] Dr. Cecilio Gale Crystals LM Nom (Urine sed) NONE SEEN Normal NONE SEEN [facility] Comment on above: Performed By: #### F T4, VITAD, FETIBC, FERR #### [facility] [address] [place] [address] Dr. Cecilio Gale Epithelial cells LM Ql (Urine sed) FEW Abnormal NONE SEEN /RARE [facility] Comment on above: Performed By: #### F T4, VITAD, FETIBC, FERR #### [facility] [address] [place] [address] Dr. Cecilio Gale Glucose Ql (U) Negative Normal NEGATIVE [facility] Comment on above: Performed By: #### F T4, VITAD, FETIBC, FERR #### [facility] [address] [place] [address] Dr. Cecilio Gale Hemoglobin Ql (U) Negative Normal NEGATIVE [facility] Comment on above: Performed By: #### F T4, VITAD, FETIBC, FERR #### [facility] [address] [place] [address] Dr. Cecilio Gael Ketones Ql (U) Negative Normal NEGATIVE [facility] Comment on above: Performed By: #### F T4, VITAD, FETIBC, FERR #### [facility] [address] [place] [address] Dr. Cecilio Gale LEUKOCYTES Negative Normal NEGATIVE [facility] Comment on above: Performed By: #### F T4, VITAD, FETIBC, FERR #### [facility] [address] [place] [address] Dr. Cecilio Gale MUCOUS NONE SEEN Normal NONE SEEN [facility] Comment on above: Performed By: #### F T4, VITAD, FETIBC, FERR #### [facility] [address] [place] [address] Dr. Cecilio Gale Nitrite Ql (U) Negative Normal NEGATIVE [facility] Comment on above: Performed By: #### F T4, VITAD, FETIBC, FERR #### [facility] [address] [place] [address] Dr. Cecilio Gale pH (U) 7.0 [pH] Normal 5-9 [facility] Comment on above: Performed By: #### F T4, VITAD, FETIBC, FERR #### [facility] [address] [place] [address] Dr. Cecilio Gale RBC NONE SEEN Abnormal 0-2 [facility] Comment on above: Performed By: #### F T4, VITAD, FETIBC, FERR #### [facility] [address] [place] [address] Dr. Cecilio Gale SPEC GRAVITY 1.010 Normal 1.005-<=1.025 [facility] Comment on above: Performed By: #### F T4, VITAD, FETIBC, FERR #### [facility] [address] [place] [address] Dr. Cecilio Gale UA PROTEIN Negative Normal NEGATIVE/ TRACE [facility] Comment on above: Performed By: #### F T4, VITAD, FETIBC, FERR #### [facility] [address] [place] [address] Dr. Cecilio Gale Urobilinogen Qn (U) 0.2 {Anita'U}/dL Normal 0.2 - 1. 0 [facility] Comment on above: Performed By: #### F T4, VITAD, FETIBC, FERR #### [facility] [address] [place] [address] Dr. Cecilio Gale WBC NONE SEEN Normal NONE SEEN [facility] Comment on above: Performed By: #### F T4, VITAD, FETIBC, FERR #### [facility] [address] [place] [address] Dr. Cecilio Gale Physician Referralon 022 Physician Referral [phone] [id number] #[id number] Normal [facility] ALKP ISOENZYMESon 07-10-2022 ALP [Catalytic activity/Vol] 159 U/L Critically high 44-121 [facility] Comment on above: Performed By: #### A LKPISO #### [facility] [address] [address] [address] Cecilio Gale Bone Fraction: 36 % Normal 14-68 [facility] Comment on above: Performed By: #### A LKPISO #### [facility] [address] [address] [address] Cecilio Gale Intestinal Frac.: 4 % Normal 0-18 [facility] Comment on above: Performed By: #### A LKPISO #### [facility] [address] [address] [address] Cecilio Gale Liver Fraction: 60 % Normal 18-85 [facility] Comment on above: Performed By: #### A LKPISO #### [facility] [address] [address] [address] Cecilio Gale VIT D 25-OH LABCORPon 2021 Vitamin D, 25-Hydroxy 50.4 ng/mL Normal 30.0-100.0 [facility] Comment on above: Result Comment: Millie min D deficiency has been defined by the [place] of Medicine and an Endocrine Society practice guideline as a level of serum 25-OH vitamin D less than 20 ng/mL (1,2). The Endocrine Society went on to further define vitamin D insufficiency as a level between 21 and 29 ng/mL (2). 1. IOM ([place] of Medicine). 2010. Dietary reference intakes for calcium and D. [place]: The National Academies Press. 2. Sujatha IZQUIERDO, Vaishali HOLLIDAY, Larisa AZAR, et al. Evaluation, treatment, and prevention of vitamin D deficiency: an Endocrine Society clinical practice guideline. JCEM. 2010; 96(7):1911-30. Performed By: #### F T4, VITAD, FETIBC, FERR #### [facility] [address] [address] [address] Cecilio Gale CBC AUTO DIFFon 07-08-2022 BASO # 0.0 103/ul Normal 0.0-0.1 [facility] Comment on above: Performed By: #### C BC #### [facility] [address] [address] [address] Cecilio Gale Basophils/100 WBC (Bld) 0.6 % Normal 0.2-2.0 [facility] Comment on above: Performed By: #### C BC #### [facility] [address] [address] [address] Cecilio Gale EO # 0.0 103/ul Normal 0.0-0.7 [facility] Comment on above: Performed By: #### C BC #### [facility] [address] [place] [address] Dr. Cecilio Gale Eosinophils/100 WBC (Bld) 0.0 % Critically low 0.9-7.0 [facility] Comment on above: Performed By: #### C BC #### [facility] [address] [place] [address] Dr. Cecilio Gale Erythrocyte distribution width (RBC) [Ratio] 11.8 % Normal 11.0-15.0 [facility] Comment on above: Performed By: #### C BC #### [facility] [address] [place] [address] Dr. Cecilio Gale Hematocrit (Bld) [Volume fraction] 40.2 % Normal 36.0-48.0 [facility] Comment on above: Performed By: #### C BC #### [facility] [address] [address] [address] Cecilio Gale Hemoglobin (Bld) [Mass/Vol] 14.5 g/dL Normal 12.0-16.0 [facility] Comment on above: Performed By: #### C BC #### [facility] [address] [place] [address] Dr. Cecilio Gale IG # 0.01 10e3/ul Normal 0.00-0.03 [facility] Comment on above: Performed By: #### C BC #### [facility] [address] [place] [address] Dr. Cecilio Gale IG % 0.2 % Normal 0.0-0.5 [facility] Comment on above: Performed By: #### C BC #### [facility] [address] [place] [address] Dr. Cecilio Gale LYMPH # 2.1 103/ul Normal 1.2-3.8 [facility] Comment on above: Performed By: #### C BC #### [facility] [address] [place] [address] Dr. Cecilio Gale Lymphocytes/100 WBC (Bld) 45.9 % Normal 20.5-60.0 [facility] Comment on above: Performed By: #### C BC #### [facility] [address] [place] [address] Dr. Cecilio Gale MANUAL DIFF REQ NO Normal [facility] Comment on above: Performed By: #### C BC #### [facility] [address] [place] [address] Dr. Cecilio Gale MCH (RBC) [Entitic mass] 33.0 pg Normal 26.7-34.0 [facility] Comment on above: Performed By: #### C BC #### [facility] [address] [place] [address] Dr. Cecilio Gale MCHC (RBC) [Mass/Vol] 36.1 g/dL Critically high 29.9-35.2 [facility] Comment on above: Performed By: #### C BC #### [facility] [address] [place] [address] Dr. Cecilio Gale MCV (RBC) [Entitic vol] 91.6 fL Normal 81.0-99.0 [facility] Comment on above: Performed By: #### C BC #### [facility] [address] [place] [address] Dr. Cecilio Gale MONO # 0.4 103/ul Normal 0.3-0.8 [facility] Comment on above: Performed By: #### C BC #### [facility] [address] [place] [address] Dr. Cecilio Gale Monocytes/100 WBC (Bld) 8.9 % Normal 1.7-12.0 [facility] Comment on above: Performed By: #### C BC #### [facility] [address] [place] [address] Dr. Cecilio Gale NEUT # 2.1 103/ul Normal 1.4-6.5 [facility] Comment on above: Performed By: #### C BC #### [facility] [address] [place] [address] Dr. Cecilio Gale Neutrophils/100 WBC (Bld) 44.4 % Normal 43.0-75.0 [facility] Comment on above: Performed By: #### C BC #### [facility] [address] [place] [address] Dr. Cecilio Gale Platelet mean volume (Bld) [Entitic vol] 8.4 fL Critically low 9.5-13.5 [facility] Comment on above: Performed By: #### C BC #### [facility] [address] [place] [address] Dr. Cecilio Gale PLT 349 103/ul Normal 150-450 [facility] Comment on above: Performed By: #### C BC #### [facility] [address] [place] [address] Dr. Cecilio Gale RBC 4.39 106/ul Normal 4.20-5.40 [facility] Comment on above: Performed By: #### C BC #### [facility] [address] [place] [address] Dr. Cecilio Gale WBC 4.6 103/ul Normal 4.0-11.0 [facility] Comment on above: Performed By: #### C BC #### [facility] [address] [place] [address] Dr. Cecilio Gale CULTURE URINEon 07-08-2022 CULTURE URINE Culture Observations: MODERATE GROWTH OF MIXED GENITAL CAMERON. NO POTENTIAL PATHOGENS SEEN. Normal [facility] Comment on above: Performed By: #### F T4, VITAD, FETIBC, FERR #### [facility] [address] [address] [address] Cecilio Gale FERRITINon 07-08-2022 Ferritin [Mass/Vol] 182.0 ng/mL Normal 8.0-252.0 [facility] Comment on above: Performed By: #### F T4, VITAD, FETIBC, FERR #### [facility] [address] [address] [address] Cecilio Gale FREE T3on 07-08-2022 FREE T3 2.02 pg/mlL Critically low 2.18-3.98 [facility] Comment on above: Performed By: #### F T4, VITAD, FETIBC, FERR #### [facility] [address] [place] [address] Dr. Cecilio Gale FREE T4on 07-08-2022 Free T4 [Mass/Vol] 0.98 ng/dL Normal 0.76-1.46 [facility] Comment on above: Performed By: #### F T4, VITAD, FETIBC, FERR #### [facility] [address] [place] [address] Dr. Cecilio Gale GLYCOHEMOGLOBIN A1Con 2021 ADA RECOMMENDATION SEE BELOW Normal [facility] Comment on above: Result Comment: ADA RECOMMENDED LIMIT 4.0 - 6.0 ADA THERAPEUTIC TARGET < 7.0 ACTION SUGGESTED > 7.0 Performed By: #### A 1C #### [facility] [address] [place] [address] Dr. Cecilio Gale Glucose [Mass/Vol] 105 mg/dL Normal [facility] Comment on above: Performed By: #### A 1C #### [facility] [address] [place] [address] Dr. Cecilio Gale HbA1c (Bld) [Mass fraction] 5.3 % Normal 4.5-6.2 [facility] Comment on above: Performed By: #### A 1C #### [facility] [address] [place] [address] Dr. Cecilio Gale IRON AND TIBCon 07-08-2022 % SATURATION 79.9 % Normal [facility] Comment on above: Performed By: #### F T4, VITAD, FETIBC, FERR #### [facility] [address] [address] [address] Cecilio Gale Iron [Mass/Vol] 219.0 ug/dL Critically high 50.0-170.0 [facility] Comment on above: Performed By: #### F T4, VITAD, FETIBC, FERR #### [facility] [address] [address] [address] Cecilio Gale TIBC DIRECT 274.0 ug/dL Normal 250.0-450.0 [facility] Comment on above: Performed By: #### F T4, VITAD, FETIBC, FERR #### [facility] [address] [place] [address] Dr. Cecilio Gale LIPID PROFILEon 07-08-2022 CHOL-HDL RATIO NORM SEE BELOW Normal [facility] Comment on above: Result Comment: 3.3 - 4.4 LOW RISK 4.4 - 7.1 AVERAGE RISK 7.1 - 11.0 MODERATE RISK >11.0 HIGH RISK Performed By: #### F T4, VITAD, FETIBC, FERR #### [facility] [address] [place] [address] Dr. Cecilio Gale Cholesterol [Mass/Vol] 215 mg/dL Critically high <=200 [facility] Comment on above: Performed By: #### F T4, VITAD, FETIBC, FERR #### [facility] [address] [address] [address] Cecilio Gale Cholesterol in HDL [Mass/Vol] 98 mg/dL Critically high 40-60 [facility] Comment on above: Performed By: #### F T4, VITAD, FETIBC, FERR #### [facility] [address] [place] [address] Dr. Cecilio Gale Cholesterol in LDL [Mass/Vol] 105.4 mg/dL Normal [facility] Comment on above: Performed By: #### F T4, VITAD, FETIBC, FERR #### [facility] [address] [place] [address] Dr. Cecilio Gale Cholesterol.total/Cho lesterol in HDL [Mass ratio] 2.2 {ratio} Normal [facility] Comment on above: Performed By: #### F T4, VITAD, FETIBC, FERR #### [facility] [address] [place] [address] Dr. Cecilio Gale HDL NORMAL > or = 60 mg/dl - LOW CARDIOVASCULAR RISK <40 mg/dl - HIGH CARDIOVASCULAR RISK Normal [facility] Comment on above: Performed By: #### F T4, VITAD, FETIBC, FERR #### [facility] [address] [place] [address] Dr. Cecilio Gale LDL CALC NORMAL SEE BELOW Normal [facility] Comment on above: Result Comment: <100 mg/dl OPTIMAL 100 - 129 mg/dl NEAR OR ABOVE OPTIMAL 130 - 159 mg/dl BORDERLINE HIGH 160 - 189 mg/dl HIGH >190 mg/dl VERY HIGH Performed By: #### F T4, VITAD, FETIBC, FERR #### [facility] [address] [place] [address] Dr. Cecilio Gale Triglyceride [Mass/Vol] 58 mg/dL Normal <=150 [facility] Comment on above: Performed By: #### F T4, VITAD, FETIBC, FERR #### [facility] [address] [place] [address] Dr. Cecilio Gale VLDL CALC 11.6 mg/dL Normal [facility] Comment on above: Performed By: #### F T4, VITAD, FETIBC, FERR #### [facility] [address] [place] [address] Dr. Cecilio Gale PROF 14(COMP METB)on 022 Albumin [Mass/Vol] 4.0 g/dL Normal 3.4-5.0 [facility] Comment on above: Performed By: #### F T4, VITAD, FETIBC, FERR #### [facility] [address] [place] [address] Dr. Cecilio Gale Albumin/Globulin [Mass ratio] 1.0 {ratio} Normal [facility] Comment on above: Performed By: #### F T4, VITAD, FETIBC, FERR #### [facility] [address] [place] [address] Dr. Cecilio Gale ALP [Catalytic activity/Vol] 160 U/L Critically high 46-116 [facility] Comment on above: Performed By: #### F T4, VITAD, FETIBC, FERR #### [facility] [address] [place] [address] Dr. Cecilio Gale ALT [Catalytic activity/Vol] 26 U/L Normal 14-59 [facility] Comment on above: Performed By: #### F T4, VITAD, FETIBC, FERR #### [facility] [address] [place] [address] Dr. Cecilio Gale Anion gap [Moles/Vol] 14.1 mmol/L Normal [facility] Comment on above: Performed By: #### F T4, VITAD, FETIBC, FERR #### [facility] [address] [place] [address] Dr. Cecilio Gale AST [Catalytic activity/Vol] 19 U/L Normal 15-37 [facility] Comment on above: Performed By: #### F T4, VITAD, FETIBC, FERR #### [facility] [address] [place] [address] Dr. Cecilio Gale Bilirubin [Mass/Vol] 0.5 mg/dL Normal 0.2-1.0 [facility] Comment on above: Performed By: #### F T4, VITAD, FETIBC, FERR #### [facility] [address] [place] [address] Dr. Cecilio Gale Calcium [Mass/Vol] 8.9 mg/dL Normal 8.5-10.1 [facility] Comment on above: Performed By: #### F T4, VITAD, FETIBC, FERR #### [facility] [address] [place] [address] Dr. Cecilio Gale Chloride [Moles/Vol] 93 mmol/L Critically low 98-107 [facility] Comment on above: Performed By: #### F T4, VITAD, FETIBC, FERR #### [facility] [address] [place] [address] Dr. Cecilio Gale CO2 [Moles/Vol] 25.9 mmol/L Normal 21.0-32.0 [facility] Comment on above: Performed By: #### F T4, VITAD, FETIBC, FERR #### [facility] [address] [place] [address] Dr. Cecilio Gale Creatinine [Mass/Vol] 0.68 mg/dL Normal 0.55-1.02 [facility] Comment on above: Performed By: #### F T4, VITAD, FETIBC, FERR #### [facility] [address] [address] [address] Cecilio Gale EGFR-AF ESTONIAN >60 Normal >=60 [facility] Comment on above: Performed By: #### F T4, VITAD, FETIBC, FERR #### [facility] [address] [place] [address] Dr. Cecilio Gale EGFR-NON AF ESTONIAN >60 Normal >=60 [facility] Comment on above: Performed By: #### F T4, VITAD, FETIBC, FERR #### [facility] [address] [place] [address] Dr. Cecilio Gale Globulin (S) [Mass/Vol] 3.9 g/dL Normal [facility] Comment on above: Performed By: #### F T4, VITAD, FETIBC, FERR #### [facility] [address] [place] [address] Dr. Cecilio Gale Glucose [Mass/Vol] 108 mg/dL Critically high 74-106 [facility] Comment on above: Performed By: #### F T4, VITAD, FETIBC, FERR #### [facility] [address] [place] [address] Dr. Cecilio Gale Potassium [Moles/Vol] 4.0 mmol/L Normal 3.5-5.1 [facility] Comment on above: Performed By: #### F T4, VITAD, FETIBC, FERR #### [facility] [address] [place] [address] Dr. Cecilio Gale Protein [Mass/Vol] 7.9 g/dL Normal 6.4-8.2 [facility] Comment on above: Performed By: #### F T4, VITAD, FETIBC, FERR #### [facility] [address] [place] [address] Dr. Cecilio Gale Sodium [Moles/Vol] 129 mmol/L Critically low 136-145 Th [facility] Comment on above: Performed By: #### F T4, VITAD, FETIBC, FERR #### [facility] [address] [place] [address] Dr. Cecilio Gale Urea nitrogen [Mass/Vol] 6.0 mg/dL Critically low 7.0-18.0 [facility] Comment on above: Performed By: #### F T4, VITAD, FETIBC, FERR #### [facility] [address] [place] [address] Dr. Cecilio Gale Urea nitrogen/Creatinine [Mass ratio] 8.8 mg/mg Normal [facility] Comment on above: Performed By: #### F T4, VITAD, FETIBC, FERR #### [facility] [address] [place] [address] Dr. Cecilio Gale TSHon 07-08-2022 TSH 0.963 uIU/mL Normal 0.358-3.740 [facility] Comment on above: Performed By: #### F T4, VITAD, FETIBC, FERR #### [facility] [address] [place] [address] Dr. Cecilio Gale UA RANDOMon 07-08-2022 Bilirubin Ql (U) Negative Normal NEGATIVE [facility] Comment on above: Performed By: #### F T4, VITAD, FETIBC, FERR #### [facility] [address] [place] [address] Dr. Cecilio Gale Clarity (U) CLEAR Normal CLEAR [facility] Comment on above: Performed By: #### F T4, VITAD, FETIBC, FERR #### [facility] [address] [place] [address] Dr. Cecilio Gale Color (U) LT. YELLOW Normal YELLOW [facility] Comment on above: Performed By: #### F T4, VITAD, FETIBC, FERR #### [facility] [address] [address] [address] Cecilio Gale Glucose Ql (U) Negative Normal NEGATIVE [facility] Comment on above: Performed By: #### F T4, VITAD, FETIBC, FERR #### [facility] [address] [address] [address] Cecilio Gale Hemoglobin Ql (U) TRACE-LYSED Abnormal NEGATIVE [facility] Comment on above: Performed By: #### F T4, VITAD, FETIBC, FERR #### [facility] [address] [address] [address] Cecilio Gale Ketones Ql (U) Negative Normal NEGATIVE [facility] Comment on above: Performed By: #### F T4, VITAD, FETIBC, FERR #### [facility] [address] [place] [address] Dr. Cecilio Gale LEUKOCYTES Negative Normal NEGATIVE [facility] Comment on above: Performed By: #### F T4, VITAD, FETIBC, FERR #### [facility] [address] [address] [address] Cecilio Gale Nitrite Ql (U) Negative Normal NEGATIVE [facility] Comment on above: Performed By: #### F T4, VITAD, FETIBC, FERR #### [facility] [address] [address] [address] Cecilio Gale pH (U) 7.5 [pH] Normal 5-9 [facility] Comment on above: Performed By: #### F T4, VITAD, FETIBC, FERR #### [facility] [address] [address] [address] Cecilio Gale SPEC GRAVITY <=1.005 Abnormal 1.005-<=1.025 [facility] Comment on above: Performed By: #### F T4, VITAD, FETIBC, FERR #### [facility] [address] [address] [address] Cecilio Gale UA PROTEIN Negative Normal NEGATIVE/ TRACE [facility] Comment on above: Performed By: #### F T4, VITAD, FETIBC, FERR #### [facility] [address] [place], [place] [address] Dr. Cecilio Gale Urobilinogen Qn (U) 0.2 {Anita'U}/dL Normal 0.2 - 1. 0 [facility] Comment on above: Performed By: #### F T4, VITAD, FETIBC, FERR #### [facility] [address] [address] [address] Cecilio Gale Vital Signs Date Time Vital Sign Value Performing Clinician Facility 10-27-2023 11:10-0500 Body height 165.1 cm Scotty Ruiz Other [facility] Other 10-27-2023 11:10-0500 Body mass index (BMI) [Ratio] 36.11 kg/m2 Scotty Ruiz Other [facility] Other 10-27-2023 11:10-0500 Body temperature 98.1 [degF] Scotty Ruiz Other [facility] Other 10-27-2023 11:10-0500 Body weight 98.43 kg Scotty Ruiz Other [facility] Other 10-27-2023 11:10-0500 Diastolic blood pressure 78 mm[Hg] Scotty Ruiz Other [facility] Other 10-27-2023 11:10-0500 Respiratory rate 18 /min Scotty Ruiz Other [facility] Other 10-27-2023 11:10-0500 SaO2% (BldA) [Mass fraction] 97 % Scotty Ruiz Other [facility] Other 10-27-2023 11:10-0500 Systolic blood pressure 120 mm[Hg] Scotty Ruiz Other [facility] Other 07-28-2023 09:50-0400 Body height 165.1 cm Scotty Sara Other [facility] Other 07-28-2023 09:50-0400 Body mass index (BMI) [Ratio] 39.1 kg/m2 Scotty Sara Other [facility] Other 07-28-2023 09:50-0400 Body weight 106.6 kg Scotty Ruiz Other [facility] Other 07-28-2023 09:50-0400 Diastolic blood pressure 78 mm[Hg] Scotty Ruiz Other [facility] Other 07-28-2023 09:50-0400 Respiratory rate 18 /min Scotty Ruiz Other [facility] Other 07-28-2023 09:50-0400 SaO2% (BldA) [Mass fraction] 98 % Scotty Sara Other [facility] Other 07-28-2023 09:50-0400 Systolic blood pressure 124 mm[Hg] Scotty Sara Other [facility] Other 06-02-2023 13:00-0400 Body height 165.1 cm Rajendra Angulo Other [facility] Other 06-02-2023 13:00-0400 Body mass index (BMI) [Ratio] 42.43 kg/m2 Rajendra Angulo Other [facility] Other 06-02-2023 13:00-0400 Body weight 115.67 kg Rajendra Angulo Other [facility] Other 06-02-2023 13:00-0400 Diastolic blood pressure 78 mm[Hg] Roberthannah Landadano Other [facility] Other 06-02-2023 13:00-0400 SaO2% (BldA) [Mass fraction] 97 % Rajendra Angulo Other [facility] Other 06-02-2023 13:00-0400 Systolic blood pressure 119 mm[Hg] Robertsethkati Kev Other [facility] Other 01-21-2023 11:50-0400 Body height 165.1 cm Scotty Ruiz Other [facility] Other 01-21-2023 11:50-0400 Body mass index (BMI) [Ratio] 45.92 kg/m2 Scotty Ruiz Other [facility] Other 01-21-2023 11:50-0400 Body temperature 97.7 [degF] Scotty Ruiz Other [facility] Other 01-21-2023 11:50-0400 Body weight 125.19 kg Scotty Ruiz Other [facility] Other 01-21-2023 11:50-0400 Diastolic blood pressure 86 mm[Hg] Scotty Ruiz Other [facility] Other 01-21-2023 11:50-0400 Respiratory rate 18 /min Scotty Ruiz Other [facility] Other 01-21-2023 11:50-0400 SaO2% (BldA) [Mass fraction] 97 % Scotty Ruiz Other [facility] Other 01-21-2023 11:50-0400 Systolic blood pressure 128 mm[Hg] Scotty Ruiz Other [facility] Other 08-04-2022 15:21-0400 Blood Pressure Location [facility] [place] 08-04-2022 15:21-0400 Diastolic blood pressure 80 mm[Hg] Kerry EPPERSONJolene [facility] [place] 08-04-2022 15:21-0400 Heart rate 72 /min Kerry EPPERSONJolene [facility] [place] 08-04-2022 15:21-0400 Respiratory rate 16 /min [facility] [place] 08-04-2022 15:21-0400 Systolic blood pressure 118 mm[Hg] Kerry [facility]PPERSONJolene [facility] 07-29-2022 11:12-0400 Body height 165.1 cm Ricci Garcia MD Work Phone: [facility] 07-29-2022 11:12-0400 Body temperature 97.11 [degF] Ricci Garcia MD Work Phone: [facility] 07-29-2022 11:12-0400 Body weight 122.97 kg Ricci Garcia MD Work Phone: [facility] 07-29-2022 11:12-0400 Diastolic blood pressure 89 mm[Hg] Ricci Garcia MD Work Phone: [facility] 07-29-2022 11:12-0400 Heart rate 83 /min Ricci Garcia MD Work Phone: [facility] 07-29-2022 11:12-0400 Respiratory rate 16 /min Ricci Garcia MD Work Phone: [facility] 07-29-2022 11:12-0400 SaO2% (BldA) [Mass fraction] 98 % Ricci Garcia MD Work Phone: [facility] 07-29-2022 11:12-0400 Systolic blood pressure 152 mm[Hg] Ricci Garcia MD Work Phone: [facility] 07-14-2022 14:20-0400 Body height 165.1 cm Scotty Ruiz Other [facility] Other 07-14-2022 14:20-0400 Body mass index (BMI) [Ratio] 45.26 kg/m2 Scotty Ruiz Other [facility] Other 07-14-2022 14:20-0400 Body temperature 97.6 [degF] Scotty Ruiz Other [facility] Other 07-14-2022 14:20-0400 Body weight 123.38 kg Scotty Ruiz Other [facility] Other 07-14-2022 14:20-0400 Diastolic blood pressure 82 mm[Hg] Scotty Ruiz Other [facility] Other 07-14-2022 14:20-0400 SaO2% (BldA) [Mass fraction] 97 % Scotty Ruiz Other [facility] Other 07-14-2022 14:20-0400 Systolic blood pressure 132 mm[Hg] Scotty Ruiz Other [facility] Other 06-03-2022 14:00-0400 Body height 165.1 cm Rajendra Angulo Other [facility] Other 06-03-2022 14:00-0400 Body mass index (BMI) [Ratio] 45.26 kg/m2 Rajendra Angulo Other [facility] Other 06-03-2022 14:00-0400 Body temperature 97.3 [degF] Roberthannah Landadano Other [facility] Other 06-03-2022 14:00-0400 Body weight 123.38 kg Roberthannah Salinasno Other [facility] Other 06-03-2022 14:00-0400 Diastolic blood pressure 75 mm[Hg] Rajendra Kev Other [facility] Other 06-03-2022 14:00-0400 SaO2% (BldA) [Mass fraction] 10 % Rajendra Kev Other [facility] Other 06-03-2022 14:00-0400 Systolic blood pressure 113 mm[Hg] Rajendra Kev Other [facility] Other Encounters Encounter Date Encounter Type Care Provider Facility Start: 11-23-2023 End: 11-23-2023 ambulatory EZEQUIEL LESTER Not Available Start: 10-27-2023 End: 10-27-2023 ambulatory Scotty Ruiz Other [facility] Other Start: 10-27-2023 Office outpatient vi sit 25 minutes Scotty Ruiz [facility] Start: 08-04-2023 End: 08-04-2023 ambulatory Scotty Ruiz Other [facility] Other Start: 08-04-2023 Telephone encounter Scotty Ruiz [facility] Start: 07-28-2023 End: 07-28-2023 ambulatory Scotty Ruiz Other [facility] Other Start: 07-28-2023 Office outpatient vi sit 25 minutes Scotty Ruiz [facility] Start: 07-22-2023 End: 07-22-2023 ambulatory Scotty Ruiz Other [facility] Other Start: 07-22-2023 Telephone encounter Scotty Ruiz [facility] [place] Start: 06-02-2023 Office outpatient vi sit 10 minutes Rajendra Angulo [facility] Start: 06-02-2023 End: 06-02-2023 ambulatory DO Scotty Ruiz Work Phone: [facility] [employer] Other Start: 06-02-2023 End: 06-02-2023 Patient encounter procedure DO Scotty Ruiz Work Phone: [facility] Work Phone: Start: 02-09-2023 End: 02-09-2023 ambulatory Scotty Ruiz [facility] Other Start: 02-09-2023 Telephone encounter Scotty Ruiz [facility] [place] Start: 01-21-2023 End: 01-21-2023 ambulatory Scotty Ruiz Other [facility] Other Start: 01-21-2023 Encounter for other preprocedural examination Scotty Ruiz [facility] [place] Start: 01-21-2023 Office outpatient vi sit 25 minutes Scotty Ruiz [facility] [place] Start: 01-11-2023 End: 01-12-[address] SCOTTY RUIZ Facility:[facility] Start: 11-30-2022 End: 11-30-2022 ambulatory Scotty Ruiz Other [facility] Other Start: 11-30-2022 Telephone encounter Scotty Ruiz [facility] [place] Start: 10-08-2022 End: 10-09-[address] DOCTOR RANDALL Facility:[facility] Start: 09-22-2022 End: 09-23-2022 ambulatory Kerry JONES Facility: [place] Start: 09-22-2022 End: 09-22-2022 Patient encounter procedure Kerry JONES [facility] [place] Start: 09-17-2022 ambulatory Scotty Ruiz Facmeme lity:[facility] [place] Start: 09-09-2022 End: 09-10-2022 ambulatory Kerry JONES Facility::[id number] Start: 2022 Telephone encounter Janie Joseph [facility] Start: 2022 End: 09-08-[address] KERRY JONES . [facility] Other Start: 08-21-2022 End: 08-22-2022 ambulatory VINCENT AGUILAR Facility:[facility] Start: 08-21-2022 End: 08-21-2022 ambulatory Pita Mobleyy Work Phone: Hematology/Oncology Comment on above: Hereditary hemochrom atosis (HCC) (Primary Dx) Start: 08-12-2022 End: 08-13-2022 [facility] Ricci Garcia MD Work Phone: Hematology/Oncology Comment [...] Start: 07-28-2022 End: 07-28-2022 ambulatory Mahendra Romo Facility:[facility] Start: 07-28-2022 End: 07-28-2022 Patient encounter procedure DO Scotty Ruiz Work Phone: [facility] Start: 07-21-2022 Telephone encounter Scotty Ruiz [facility] Start: 07-21-2022 End: 07-22-[address] SCOTTY RUIZ [facility] Other Start: 07-14-2022 End: 07-14-2022 ambulatory Scotty Ruiz [facility] Other Start: 07-14-2022 Office outpatient vi sit 25 minutes Scotty Ruiz [facility] Start: 07-08-2022 End: 07-09-[address] SCOTTY RUIZ Facility: Start: 07-07-2022 Telephone encounter Scotty Ruzi [facility] Start: 07-07-2022 End: 07-09-2022 ambulatory DO [facility] Other Start: 06-03-2022 End: 06-03-2022 ambulatory Rajendra Angulo Other [facility] Other Start: 06-03-2022 Office outpatient vi sit 10 minutes Rajendra Angulo [facility] Start: 06-03-2022 End: 06-03-2022 Patient encounter procedure DO Scotty Ruiz Work Phone: [facility] Start: 09-01-2021 Telephone encounter Scotty Ruiz [facility] Procedures Date Procedure Procedure Detail Performing Clinician Start: 09-09-2022 Colonoscopy Kerry PRESLEY Start: 07-29-2022 Blood count complete auto&auto difrntl wbc Ricci Garcia MD Work Phone: Closed reduction of fracture of ankle Kerry JONES Craniotomy Kerry JONES Ligation of fallopian tube Rebecca JONES Vaginal hysterectomy Kerry JONES Plan of Treatment Date Care Activity Detail Author Start: 08-21-2025 DIABETES SCREEN DIABETES SCREEN [facility] Start: 07-29-2025 DIABETES SCREEN DIABETES SCREEN [facility] Start: 07-29-2022 End: 09-28-2022 HFE gene targeted mutation analysis in Blood or Tissue by Molecular genetics method [facility] Work Phone: Comment on above: Expected: 07/29/2022 , Expires: 09/28/2022 Start: 07-09-2022 Influenza vaccination INFLUENZA (#1) [facility] Start: 04-14-2022 COVID-19 VACCINE (5 - Booster for Pfizer series) COVID-19 VACCINE (5 - Booster for Pfizer series) [facility] Start: 11-08-2021 DEPRESSION ASSESSMENT DEPRESSION ASS ESSMENT [facility] Start: 2011 COLOGUARD (FIT-DNA) COLOGUARD (FIT-D NA) [facility] Start: 2011 Colonoscopy COLONOSCOPY [facility] Start: 2011 COLORECTAL CANCER SCREENING COLORECTAL CANCER SCREENING [facility] Start: [address] COLONOGRAPHY [facility] Start: 2011 FECAL OCCULT BLOOD FECAL OCCULT BLOO D [facility] Start: 2011 LIPID SCREEN LIPID SCREEN [facility] Start: 2011 SIGMOIDOSCOPY SIGMOIDOSCOPY [facility] Start: 2006 Mammography MAMMOGRAM [facility] Start: 1996 HPV TESTING HPV TESTING [facility] Start: 1987 PAP TESTING PAP TESTING [facility] Start: 1985 Urine microalbumin profile DTAP,TDAP,TD (1 - Tdap) [facility] Start: 1984 HEPATITIS C SCREENING HEPATITIS C SC REENING [facility] Start: 1984 HIV SCREENING HIV SCREENING [facility] Start: 1978 Adult depression screening assessment DEPRESSION SCREENING [facility] Start: 1966 HEPATITIS B (1 of 3 - 3-dose series) HEPATITIS B (1 of 3 - 3-dose series) [facility] End: 08-12-2023 CBC W Auto Differential panel - Blood CBC + DIFF Lab Routine 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) Every 3 months for 4 Occurrences starting 08/12/2022 until 08/12/2023 [facility] Work Phone: Comment on above: Every 3 months for 4 Occurrences starting 08/12/2022 until 08/12/2023 End: 08-12-2023 Comprehensive metabolic 2000 panel - Serum or Plasma COMP METABOLIC PANEL Lab Routine 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) Every 3 months for 4 Occurrences starting 08/12/2022 until 08/12/2023 [facility] Work Phone: Comment on above: Every 3 months for 4 Occurrences starting 08/12/2022 until 08/12/2023 End: 08-12-2023 Ferritin [Mass/volume] in Serum or Plasma FERRITIN BLD Lab Routine 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) Every 3 months for 4 Occurrences starting 08/12/2022 until 08/12/2023 [facility] Work Phone: Comment on above: Every 3 months for 4 Occurrences starting 08/12/2022 until 08/12/2023 End: 08-12-2023 Iron and Iron binding capacity panel - Serum or Plasma IRON + TIBC Lab Routine 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) Every 3 months for 4 Occurrences starting 08/12/2022 until 08/12/2023 [facility] Work Phone: Comment on above: Every 3 months for 4 Occurrences starting 08/12/2022 until 08/12/2023 [facility] Immun[facility] Immunization Date Immunization Notes Care Provider Fa cili 08-18-2023 COVID-19 Vaccine Moderna - Documentation Purposes Only Scotty Ruiz Other [facility] Other 08-18-2023 Flu Shot - Documentation Purposes Only Scotty Ruiz Other [facility] Other 10-15-2022 influenza, seasonal, injectable Scotty Ruiz Other [facility] Other 02-17-2022 COVID-19 Vaccine Moderna - Documentation Purposes Only Rajendra Angulo Other [facility] Other 10-11-2021 COVID-19 Vaccine Pfizer - Documentation Purposes Only Rajendra Angulo Other [facility] Other 08-05-2021 influenza, seasonal, injectable Scotty Ruiz Other [facility] Other 08-05-2021 influenza, injectable, quadrivalent, preservative free Ricci Garcia MD Work Phone: [facility] 02-07-2021 COVID-19 Vaccine Pfizer - Documentation Purposes Only Scotty Ruiz Other [facility] Comment on above: Reason for Medicatio n: Prophylaxis 01-17-2021 COVID-19 Vaccine Pfizer - Documentation Purposes Only Scotty Ruiz Other [facility] Comment on above: Reason for Medicatio n: Prophylaxis 10-04-2020 zoster vaccine recombinant Scotty Ruiz Other [facility] 08-05-2020 zoster vaccine recombinant Scotty Ruiz Other [facility] 08-05-2020 influenza, seasonal, injectable Scotty Ruiz Other [facility] Other 08-05-2020 influenza, injectable, quadrivalent, preservative free Ricci Garcia MD Work Phone: [facility] 10-17-2019 influenza, seasonal, injectable Scotty Ruiz Other [facility] Other 10-17-2019 influenza, injectable, quadrivalent, contains preservative Ricci Garcia MD Work Phone: [facility] 07-23-2018 influenza, injectable, quadrivalent, preservative free Ricci Garcia MD Work Phone: [facility] 07-23-2018 influenza, seasonal, injectable Scotty Ruiz Other [facility] Other NEGATED: Highlighted row has not occurred!08-04-2022 influenza virus vaccine, unspecified formulation Kerry [facility]PPERSONJolene [facility] [place] Payers Date Payer Category Payer Self-pay [id number] 2019 Medicare HU[employer]NA MEDICARE HU[employer] MEDICARE PPO [id number] 2019-Present [phone] [address] [address] [place] [address] PPO [id number] 1966 Unknown [id number] 1966 Unknown [id number] [id number] 1966 Unknown [id number] [id number] 1966 Unknown [id number] [id number] 1966 Unknown [id number] [id number] 1966 Unknown [id number] [id number] 1966 Unknown [id number] [id number] 1966 Unknown [id number] [id number] 1966 Unknown [id number] 2.16.840.1.222654.3.579.2.593 1966 Unknown [id number] [id number] 1966 Unknown [id number] [id number] 1966 Unknown [id number] [id number] 1958 Medicare [id number] 2.16. [id number] Unknown MMO [id number] Unknown Regular Insurance [id number] Unknown [employer] [id number] Unknown [id number] [id number] Unknown [id number] [id number] Unknown [id number] Social History Date Type Detail Facility Unknown if ever smoked [employer] [facility] Other Sex Assigned At [employer] [facility] Other Start: 1965 Sex Assigned At Female F [facility] Start: 07-23-2022 End: 08-04-2022 Tobacco smoking status NHIS Never smoked tobacco [facility] History of tobacco use Passive smoker [facility] Start: 07-23-2022 Tobacco use and exposure Smokeless tobacco non-user [facility] Start: 07-29-2022 Alcohol intake Current non-dr deblocker of alcohol (finding) [facility] Start: 1965 Sex Assigned At Not on file C [facility] Start: 07-19-2022 End: 08-21-2022 Exposure to SARS-CoV-2 (event) Not sure [facility] Tobacco smoking status Never [facility] [place] Functional Status Date Assessment Result Facility 08-04-2022 Functional Status N/A [facility] Clinical Notes 09-01-2021 to 10-27-2023 Note Date [...] Oct, Hyperglycemia (ICD-10 - R73.9) Oct, Other intermediate (current) drug therapy (ICD-10 - Z79.899) Oct, [...] - E87.1) Her sodium level was 131. [facility] Other 09-20-2023 Evaluation note* Encounter Date Diagnosis [...] HgA1C is normal at 5.4. Jul, Other intermediate (current) drug therapy (ICD-10 - Z79.899) Jul, [...] this level has not gone down further. [facility] Other 07-26-2023 Evaluation note* Encounter Date Diagnosis Assessment Notes Treatment Notes Treatment Clinical Notes May, LORENA (obstructive sleep apnea) (ICD-10 - G47.33) [facility] Other 03-16-2023 Evaluation note* Encounter Date Diagnosis [...] was 121. Ferritin was 132.0. 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 She is seeing Dr. Collins in [place] in an attempt to have bariatric weight [...] when she had weight loss surgery done. [facility] Other 11-02-2022 NoteOPERATIVE NOTE OPERATION DATE: 09/09/2022 [...] in good condition. CC: Scotty Ruiz D.O.[id number] NoteHNO ID: [id number] Author: Olesya Rodriguez RN Service: ? Author Type: Registered Nurse Type: Progress Notes Filed: 08/21/2022 4:39 PM Note Text: Pt was checked in for appointment. HGB of 14.3 qualified her for a phlebotomy. However, pt left the building after getting her blood work drawn. PSS called and LVM for pt to reschedule.[facility] 08-21-2022 History of Present illness Narrative* Olesya Rodriguez RN - 08/21/2022 3:24 PM EDT Pt was checked in for appointment. HGB of 14.3 qualified her for a phlebotomy. However, pt left thebuilding after getting her blood work drawn. PSS called and LVM for pt to reschedule. documented in this encounterM[facility]10[facility] Instructions* Patient Instructions* Ricci Garcia MD - 08/12/2022 8:43 PM EDT Arrange for phlebotomy 1 unit for Hgb > 13 next week Labs in 3 months RTC 1 week after labs and schedule for possible phlebotomy after clinician. documented in this encounterMccullough-[facility]10-05-2022 NoteHNO ID: [id number] Author: Ricci Garcia MD Service: ? Author Type: Physician Type: Progress Notes Filed: 08/12/2022 8:45 PM Note Text: NAME: Aman Mikey CLINIC NO.: [id number] DATE OF SERVICE: August 12, 2022 Some [...] 07/29/2022 0.4 AST (U/L (more content not included)...[facility]10-05-2022 History of Present illness Narrative* Ricci Garcia MD - 08/12/2022 5:17 PM EDT Images from the original note were not included. NAME: Mikey Montez CLINIC NO.: [id number] DATE OF SERVICE: August 12, 2022 Some [...] CPE Hematology and Oncology Services Provided at: [place], [place] CC: Scotty Ruiz [address] [place] [address] Scotty Ruiz DO [address] [place] [address] documented in this encounterMccullough-[facility]09-27-2022 NoteChief Complaint consultation for screening [...] 50,000 intl units (1.25 mg) oral capsule, [address] International_Unit= 1 cap(s), Oral, qWeek Allergies Depakote [...] SARS-CoV-2 (COVID-19) mRNA BNT-162b2 vax 01/17/2021 Given ProphylaxisUniversity Hospitals Conneaut Medical CenterComment on above:Result Comment: Electronically Signed By: MOMO CHAND, Kerry Barfield\Date and Time Signed: 08/04/22 15:39 [id number] Note HNO ID: [id number] Author: Ricci Garcia MD Service: ? Author Type: Physician Type: Progress Notes Filed: 07/30/2022 12:33 PM Note Text: NAME: Mikey Montez CLINIC NO.: [id number] DATE OF SERVICE: July 29, 2022 Referring [...] FAMILY HISTORY Problem Relation (more content not included)...[facility] 07-29-2022 Instructions* Patient Instructions* Ricci Garcia MD - 07/29/2022 11:49 AM EDT HFE and iron labs today Call results in 2 weeks. documented in this encounterMccullough[facility]09-21-2022 History of Present illness Narrative* Ricci Garcia MD - 07/29/2022 11:00 AM EDT Images from the original note were not included. NAME: Mikey Montez CLINIC NO.: [id number] DATE OF SERVICE: July 29, 2022 Referring [...] which included preparing to see the patient, [id number] patient care, completing clinical documentation, obtaining and/or reviewing separately obtained history, performing a medically appropriate examination, counseling and educating the pat ient/family/caregiver, ordering medications, tests, or procedures, and independently interpreting results (not separately reported). Ricci Garcia MD, CPE Hematology and Oncology Services Prov[facility]: [facility] [place] CC: Scotty Ruiz [address] [place] [address] Scotty Ruiz, DO [address] [place] [address] documented in this encounterMccullough[facility]09-06-20[facility] Evaluation note* Encounter Date Diagnosis [...] with her Vitamin D supplement. Jul, Other intermediate (current) drug therapy (ICD-10 - Z79.899) Jul, [...] advise her that she should see another certified pest control technician to determine if she has hemochromatosis or [...] years ago she had an appointment in [place] with a bariatric surgeon and at the [...] colonoscopy, she agrees. A referral is provided. [facility] Other 07-27-2022 Evaluation note* Encounter Date Diagnosis Assessment Notes Treatment Notes Treatment Clinical Notes May, LORENA (obstructive sleep apnea) (ICD-10 - G47.33) [facility] Other 10-25-2021 Evaluation note* Encounter Date Diagnosis Assessment Notes Treatment Notes Treatment Clinical Notes Aug, Hypothyroidism (ICD-10 - E03.9) [facility] Other Evaluation + Plan note No data available for this section General Surgery [place] Evaluation noteNo InformationNort [employer] Other Evaluation noteNo assessment information available [facility] Work Phone: Evaluation note* Diagnosis Family history of hemochromatosis- Primary Family history of other endocrine and metabolic diseases Disorder of iron metabolism Other disorders of iron metabolism Hemochromatosis, unspecified hemochromatosis type documented in this encounter [facility] HospitalEvaludelaware hospital [facility] note* Diagnosis 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 Natalio Weaver Medical History History of [place] Medical History Hemochromotosis Medical History Dr. Mckeon, perform's patient's pap's and pelvics Medical History Patient states that she get's her Medical Equipment from [facility] Medical Equipment Medical History LORENA (obstructive sleep apnea) Medical History Refuses Colonoscopy 02-08-17 Surgical History Brain Surgery 1988 Surgical History Tubal Ligation 1991 Surgical History Hysterectomy 2003 Hospitalization History Brain Surgery 1988 Hospitalization History Tubal Ligation 1991 Hospitalization History Hysterectomy 2003 [facility] Other History general Narrative - Reported* Type Description Date Medical History Epilepsy-1977; Follow's with Dr. Natalio Weaver Medical History History of [place] Medical History Hemochromotosis Medical History Dr. Mckeon, jabari's patient's pap's and pelvics Medical History Patient states that she get's her Medical Equipment from [facility] [employer] Medical Equipment Medical History LORENA (obstructive sleep apnea) Medical History Refuses Colonoscopy 02-08-17 Medical History gallstones Surgical History Brain Surgery 1988 Surgical History Tubal Ligation 1991 Surgical History Hysterectomy 2003 Surgical History Colonoscopy - Dr. Jones / alejandra d polyp 09/25/22 Hospitalization History Brain Surgery 1988 Hospitalization History Tubal Ligation 1991 Hospitalization History Hysterectomy 2003 [facility] Other [facility]ql[facility] general Narrative - Reported* Type Description Date Medical History Epilepsy-1977; Follow's with Dr. Natalio Weaver Medical History History of [place] Medical History Hemochromotosis Medical History Dr. Mckeon, jabari's patient's pap's and pelvics Medical History Patient states that she get's her Medical Equipment from [employer] Equipment Medical History LORENA (obstructive sleep apnea) Medical History Refuses Colonoscopy 02-08-17 Medical History gallstones Surgical History Brain Surgery 1988 Surgical History Tubal Ligation 1991 Surgical History Hysterectomy 2003 Surgical History Colonoscopy - Dr. Holly presley / sigmoid polyp / needs repeat in 202409/09/22 Surgical History bariatric surgery 06/22/23 Hospitalization History Brain Surgery 1988 Hospitalization History Tubal Ligation 1991 Hospitalization History Hysterectomy 2003 [facility] Other Hospital Discharge instructions No data available for this section General Surgery [email or web address] Progress note No data available for this section General Surgery [email or web address] Reason for visit Narrativereview labs/medical clearance for bariatric surgeryNortPropers Other Chief Complaint and Reason for Visit [...] for screen ing colonoscopy (Z12.11) Referral Organization [facility] Collins Bill Referring Provider First Name Scotty Referring Provider Last Name Sara Referring Provider Specialty Family Prac marcy Referred Organization [facility] Referred Provider Kerry Jones Referred Address ,[place], [place],[address] Referred Provider Specialty Surgery Referral Priority Routine General Notes Luh Giraldo 07/14/2022 02:16:50 PM > referral faxed with visit note and insurance card. pt understands she will be contacted to schedule this appt. Reason appt pt is marcela breaux to see whomever can see her first pt needs consult to discuss official dx of hemochromatosis Diagnosis 1 Hemochromatosis (E83 .119) Referral Organization [facility] Landy Referring Provider First Name Scotty Referring Provider Last Name Brendanmono Referring Provider Specialty [facility] marcy Referred [facility] Referred Provider Ricci Garcia Referred Address [address] [place],[address] Referred Provider Specialty Hematology/O ncology Referral Priority [...] Mahendra Romo , PhD Attending Provider Active 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 Relationship Specialty Start Date End Date Vincent Aguilar [address] [place] [address] PCP - General Neurology 07/29/22 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 Relationship Specialty Start Date End Date Vincent Aguilar [address] [place] [address] PCP - General Neurology 07/29/22 [...] or prosecute any alcohol or drug abuse patient.[facility] HospitalIn the event this information is protected by the Federal Confidentiality of Alcohol and Drug Abuse Patient Records regulations: The Federal rules restrict any use of the information to criminally investigate or prosecute any alcohol or drug abuse patient.[facility] HospitalIn the event this information is protected by the Federal Confidentiality of Alcohol and Drug Abuse Patient Records regulations: The Federal rules restrict any use of the information to criminally investigate or prosecute any alcohol or drug abuse patient.[facility] INFORMATION SOURCE (unrecogn ized section and content) DATE CREATED AUTHOR 08/30/2022 [facility] DATE CREATED AUTHOR AUTHOR'S ORGANIZ ATION 09/27/2022 Hola Delgadillo [facility] DATE CREATED AUTHOR AUTHOR'S ORGANIZ ATION 01/13/2023 [facility] DATE CREATED AUTHOR AUTHOR'S ORGANIZ ATION 06/04/2023 [facility] DATE CREATED AUTHOR AUTHOR'S ORGANIZ ATION 11/24/2023 [facility] FOR RECORDS PERTAINING TO PATIENTS WHO ARE [...] BE BASED ON THE PRIMARY CLINICAL RECORDS. [facility] [employer] [facility]. provides no warranty or guarantee of the accuracy or completeness of information in this document.
[2023-12-20 10:49] LABS: Basophils Percent Auto 0.6 % (0.2-2.0); Hematocrit 41.8 % (36.0-48.0); Hemoglobin 14.4 g/dL (12.0-16.0); Immature Granulocytes Abs Auto 0.01 10^3/uL (0.00-0.03); Immature Granulocytes Pct Auto 0.2 % (0.0-0.5); Lymphocytes Absolute Auto 2.2 10^3/uL (1.2-3.8); Lymphocytes Percent Auto 43.7 % (20.5-60.0); Mean Corpuscular HGB Conc 34.4 g/dL (29.9-35.2); Mean Corpuscular Hemoglobin 32.6 pg (26.7-34.0); Mean Corpuscular Volume 94.6 fL (81.0-99.0); Mean Platelet Volume 9.2 fL (9.5-13.5); Monocytes Absolute Auto 0.4 10^3/uL (0.3-0.8); Monocytes Percent Auto 7.9 % (1.7-12.0); Neutrophils Absolute Auto 2.4 10^3/uL (1.4-6.5); Neutrophils Percent Auto 47.6 % (43.0-75.0); Platelet Count 321 10^3/uL (150-450); Red Blood Count 4.42 10^6/uL (4.20-5.40); Red Cell Distribution Width 12.1 % (11.0-15.0)
[2023-12-20 11:26] LABS: Percent Iron Saturation 46.6 %
[2023-12-20 11:45] LABS: Alanine Aminotransferase 14 U/L (14-59); Albumin Globulin Ratio 0.8; Albumin Level 3.4 g/dL (3.4-5.0); Alkaline Phosphatase 207 U/L (46-116); Anion Gap 9.7; Aspartate Amino Transferase 14 U/L (15-37); BUN Creatinine Ratio 21.9; Bilirubin Total 0.3 mg/dL (0.2-1.0); Calcium 9.3 mg/dL (8.5-10.1); Carbon Dioxide 31.5 mmol/L (21.0-32.0); Chloride 102 mmol/L (98-107); Estimated GFR (African America >60 (>=60); Estimated GFR (Non-African Ame >60 (>=60); Globulin 4.3 g/dL; Glucose 98 mg/dL (74-106); Phosphorus 3.7 mg/dL (2.6-4.7); Potassium 4.2 mmol/L (3.5-5.1); Sodium 139 mmol/L (136-145); Total Protein 7.7 g/dL (6.4-8.2)
[2023-12-28 19:09] LABS: Vitamin B1 (Thiamine), Blood 179.7 nmol/L (66.5-200.0)
== END 2023-12-20 10:24 | disposition home or self-care (01) ==
LOC: LAB 10:25
PROVIDERS: PCP Family Medicine
DX: E03.9 Hypothyroidism, unspecified (principal); Z98.84 Bariatric surgery status; M19.90 Unspecified osteoarthritis, unspecified site; K21.00 Gastro-esophageal reflux disease with esophagitis, without bleeding
CPT/HCPCS: 36415; 80053; 82306; 82607; 82728; 82746; 83540; 83550; 83735; 84100; 84425; 85025

== ENCOUNTER 2023-12-24 07:03 | Outpatient (RCR) | payer MEDICARE, SELFPAY ==
[2023-12-24 12:44] LABS: Calcium 9.4 mg/dL (8.5-10.1); Estimated GFR (African America >60 (>=60); Estimated GFR (Non-African Ame >60 (>=60)
[2023-12-24 13:09] VITALS: BP 119/77; PULSE 69; RESP 16; TEMP 36.7; O2SAT 97
--- NOTE | 2023-12-24 13:11 | PC.NURSE ---
1300: Pt to [facility] amb. for Prolia injection. VSS. Denies needs or c/o. Warm blanket provided.
[2023-12-24] MEDS: DENOSUMAB 60 MG/ML SYRINGE SQ (13:13)
--- NOTE | 2023-12-24 13:18 | PC.NURSE ---
1313: Labs verified. Medicated with Prolia 60mg SQ to left arm. No bleeding to site. Pt. tolerated without c/o pain.
--- NOTE | 2023-12-24 13:30 | PC.NURSE ---
1330: Pt. without c/o. No bleeding or edema to injection site. D/c'd to home amb.
== END 2024-01-06 12:00 | disposition home or self-care (01) ==
LOC: LAB 07:03
PROVIDERS: PCP Family Medicine; Visit Provider Obstetrics & Gynecology
DX: M81.0 Age-related osteoporosis without current pathological fracture (principal); Z98.84 Bariatric surgery status
CPT/HCPCS: 36415; 82310; 82565; 96372; J0897

== ENCOUNTER 2024-04-26 10:02 | Outpatient (OUT) | payer MEDICARE, SELFPAY ==
--- OUTSIDE RECORDS SUMMARY | 2024-04-26 10:30 | XMS_ITS | CCD ---
Author Organization [facility] Care Team Providers Care Paper Rewinder Operator Name Role Phone Scotty Ruiz Unavailable Rajendra Angulo Unavailable DO Scotty Ruiz Primary Care Provider MD Rajendra Angulo Attending Provider Clarissa, PhD Mahendra Attending Provider Vincent Aguilar Primary Care Provider [phone] Scotty Ruiz Primary Care Physician SCOTTY RUIZ Referring Unavailable SCOTTY RUIZ Primary Care Unavailable RADHA, RICCI Attending Unavailable VINCENT AGUILAR Primary Care Unavailable RADHA, RICCI Referring Unavailable VINCENT AGUILAR Primary Care Unavailable RADHA, RICCI Referring Unavailable RADHA, RICCI Attending Unavailable VINCENT AGUILAR Primary Care Unavailable HUSSAINAR, RICCI Referring Unavailable VINCENT AGUILAR Primary Care Unavailable HUSSAINAR, RICCI Referring Unavailable Janie Joseph Unavailable Scotty Ruiz Referring Unavailabl e Kerry JONES Attending Unavailable NILLKerry Attending Unavailable Kerry JONES Attending Unavailable Scotty Ruiz Referring Unavailabl e MOMO, Kerry Castelan Attending Unavailable DO Scotty Ruiz Primary Care Provider [phone] Clarissa, PhD Mahendra Attending Provider [phone] MOMO Epstein, DR PAYNE Admitting Unavailable NILL ., DR PAYNE Attending Unavailable SARA, DR FAJARDO Primary Care Unavailable NILL ., DR PAYNE Consulting Unavailable DO INTERIANO Admitting Unavailable DO INTERIANO Attending Unavailable SARA, DR FAJARDO Primary Care Unavailable NILL ., DR PAYNE Admitting Unavailable NILL ., DR PAYNE Attending Unavailable GIRVIN, DR FAJARDO Primary Care Unavailable NILL ., DR PAYNE Consulting Unavailable EMMY VALDES Consulting Unavailable GREGORY, NATALIO ORTEGA Consulting Unava [...] Unavailable Girvin, DO Fajardo Primary Care Provider MD Rajendra Angulo Attending Provider Mahendra Romo Attending Unavailable Mahendra Romo Admitting Unavailable Sara, Scotty Primary Care Unavailable Rajendra Angulo Attending UnavailRajendra Small Admitting Unavaila ble Scotty Ruiz Primary Care Unavailable Scotty Ruiz MD Primary Care Provider [phone] TREVOR WHEELER Attending Unavailable FERMIN ROBLEDO Attending Unavailable Allergies Allergy Classification Reported Allergen(s) Allergy Type Date of Onset Reaction(s) Facility (14 sources) Penicillin V Drug Allergy rash [facility] Other (17 sources) Valproate; Translations: [divalproex sodium] Drug Allergy Mood [facility] [place] (4 sources) Penicillins; Translations: [PENICILLINS] Propensity to adverse reactions 03-13-20 08 [facility] (10 sources) PHENobarbital; Translations: [phenobarbital] Drug Allergy 03-13-20 08 Other (qualifier value), Other, Rash [facility] (4 sources) Penicillin; Translations: [penicillin] Drug Allergy Eruption of skin (disorder) [facility] (2 sources) Valproate; Translations: [Depakote] Drug Allergy [facility] (1 source) benzoin resin Drug Allergy [facility] (1 source) Penicillins Drug allergy (disorder) 08-13-20 15 [facility] (1 source) Phenytoin Drug Allergy [facility] (1 source) Unable to Assess Drug allergy (disorder) 09-19-20 19 [facility] (2 sources) Penicillins Drug Intolerance 03-13-20 08 Rash, Unknown [facility] (2 sources) Valproate Drug Allergy 11-08-18 80 [facility] Healthcare Medications Current Medications Medication Drug Class(es) Dates [...] carBAMazepine 300 mg extended release oral capsule (16 sources) Mood Stabilizer take 1 capsule by mouth in the morning, then take 1 capsule by mouth every twelve hours, then take 1 capsule by mouth in the evening, then take 1 capsule by mouth at bedtime carBAMazepine ER (Carbatrol) 300 MG 12 hr capsule Take 300 mg by mouth in the morning and 300 mg at noon and 300 mg in the evening and 300 mg before bedtime. 0 Active take 1 capsule by mouth every si x hours Carbatrol 300 MG 1 capsule Orally four times a day Active CPAP Mask and supplies (14 sources) CPAP Mask and ashley pplies as directed Active ergocalciferol 1.25 mg oral capsule (20 sources) Provitamin D2 Compound Start: 10-28-2023 ergocalciferol (Vitamin D2) 1.25 MG (01111 UT) capsule Start: 08-07-2016 VITAMIN D 50,0 00 unit capsule take 1 capsule by mouth every we ek Vitamin D (Ergocalciferol) 98663 UNIT TAKE 1 CAPSULE BY MOUTH ONCE A WEEK for 90 days Active take 1 capsule by mouth every we ek Vitamin D (Ergocalciferol) 63457 UNIT TAKE 1 CAPSULE BY MOUTH ONCE A WEEK Active folic acid 0.4 mg oral tablet (19 sources) Start: 07-27-2022 take 1 tablet by mouth once daily folic acid 0.4 mg Tab 0.4 mg = 1 tab(s), Oral, Daily, Refills(s) 0 Start Date: 07/27/22 Status: Ordered folic acid (Folv ite) 1 MG tablet 1 (one) time each day at the same time 0 Active take 1 tablet by mariana th every twenty-four hours Folic Acid 400 MCG 1 tablet Orally once a day Active take 1 tablet by mouth once liz y Folic Acid 400 MCG 1 tablet Orally once a day Active gabapentin 100 mg oral capsu le (5 sources) Anti-epileptic Agent gabapentin (Neurontin) 100 MG capsule Orally 4 times a day and as needed 0 Active Neurontin 75 mg 4 x a day Not-Taking lacosamide 200 mg oral tablet (20 sources) Anti-epileptic Agent Start: 07-27-2022 take 1 tablet by mouth twice daily Vimpat 200 mg oral tablet 200 mg = 1 tab(s), Oral, BID, Refills(s) 0 Start Date: 07/27/22 Status: Ordered take 3 tablets by mouth in the m orning lacosamide (Vimpat) 50 MG tablet Take 150 mg by mouth in the morning and 150 mg in the evening. 0 Active take 1 tablet by mariana th every twelve hours Vimpat 100 MG 1 tablet Orally Twice a da y Active take 1 tablet by mouth five time s daily Vimpat 100 MG 1 tablet Orally 5 times per day Not-Taking levETIRAcetam 1000 mg oral tablet (20 sources) Start: 02-06-2021 take 1 tablet by mouth twice daily Keppra 1000 mg oral tablet 1,000 mg = 1 tab(s), Oral, BID, Refills(s) 0 Start Date: 07/27/22 Status: Ordered levothyroxine sodium 0.075 mg oral tablet (20 sources) l-Thyroxi ne Start: 07-29-2023 levothyroxine (Synthroid, Levoxyl) 75 MCG tablet Start: 07-27-2022 take 1 tablet by mariana th once daily levothyroxine 50 mcg (0.05 mg) Tab 50 mcg = 1 tab(s), Oral, Daily, Refills(s) 0 Start Date: 07/27/22 Status: Ordered Start: 08-22-2016 levothyroxine (SYNTHROID) 25 mcg tablet Levothyroxine So dium 75 MCG TAKE 1 TABLET EVERY MORNING ON AN EMPTY STOMACH for 90 days Active omeprazole 20 mg delayed release oral capsule (5 sources) Proton Pump Inhibitor Start: 06-23-2023 omeprazole (PriLOSEC) [address] capsule OXcarbazepine 300 mg oral tablet (8 sources) Anti-epileptic Agent Start: 11-08-2019 take 1 tablet by mouth twice daily oxcarbazepine 300 mg Tab 300 mg = 1 tab(s), Oral, BID, Refills(s) 0 Start Date: 08/04/22 Status: Ordered ursodiol 300 mg oral capsule (5 sources) Bile Acid Start: 11-08-2021 ursodiol (Actigall) 300 MG capsule valACYclovir 1000 mg oral tablet (20 sources) Herpesvirus Nucleoside Analog DNA Polymerase Inhibitor, Herpes Simplex Virus Nucleoside Analog DNA Polymerase Inhibitor, Herpes Zoster Virus Nucleoside Analog DNA Polymerase Inhibitor Start: 07-27-2022 take 1 tablet by mouth [...] one(1) tablet d aily. Vitamin D (Ergocalciferol) 38509 UNIT (1 source) take 1 capsule by mouth every week Vitamin D (Ergocalciferol) 25332 UNIT TAKE 1 CAPSULE BY MOUTH ONCE A WEEK Active Completed/Discontinued Medications Medication Drug Class(es) Dates Sig (Normalized) Sig (Original) calcium phosphate dibas/vit D3 (VITAMIN D, WITH CALCIUM, ORAL) (3 sources) Start: 01-07-2016 calcium phosphate dibas/vit D3 (VITAMIN D, WITH CALCIUM, ORAL) estrogens, conjugated (alf) 0.625 mg oral tablet (3 sources) Estrogen Start: 09-15-2016 PREMARIN 0.625 mg tablet meloxicam 15 mg oral tablet (3 sources) Nonsteroidal Anti-inflammatory Drug Start: 09-14-2016 meloxicam (MOBIC) 15 mg tablet Vitamin D 50,000 intl units (1.25 mg) oral capsule (3 sources) Start: 07-27-2022 take 1 capsule by mouth every week Vitamin D 50,000 intl units (1.25 mg) oral capsule 50,000 International_Uni t = 1 cap(s), Oral, qWeek, Refills(s) 0 Start Date: 07/27/22 Status: Ordered Problems Active Problems Problem Classification Problem Date Documented Da te Episodic/Chronic Administrative/social admission (2 sources) Follow-up status; Translations: [Person consulting for explanation of examination or test findings] 12-08-2023 Episodic Biliary tract disease (5 sources) Gallstone; Translations: [...] 07-14-2022 Chronic Other aftercare (5 sources) Other fdc (current) drug therapy; Translations: [[facility]] Onset: 07-14-2022 Resolved: 07-14-2022 [...] [Catalytic activity/Vol] 159 U/L Critically high 44-121 [facility] Comment on above: Performed By: #### A LKPISO #### [facility] [address] [address] [address] Cecilio Gale Bone Fraction: 36 % Normal 14-68 [facility] Comment on above: Performed By: #### A LKPISO #### [facility] [address], [place] [address] Dr. Cecilio Gale Intestinal Frac.: 6 % Normal 0-18 [facility] Comment on above: Performed By: #### A LKPISO #### [facility] [address] [place] [address] Dr. Cecilio Gale Liver Fraction: 59 % Normal 18-85 [facility] Comment on above: Performed By: #### A LKPISO #### [facility] [address] [place] [address] Dr. Cecilio Gale CBC AUTO DIFFon 01-11-2023 BASO # 0.0 103/ul Normal 0.0-0.1 [facility] Comment on above: Performed By: #### F T4, VITAD, FETIBC, FERR #### [facility] [address] [place] [address] Dr. Cecilio Gale Basophils/100 WBC (Bld) 0.9 % Normal 0.2-2.0 [facility] Comment on above: Performed By: #### F T4, VITAD, FETIBC, FERR #### [facility] [address] [place] [address] Dr. Cecilio Gale EO # 0.0 103/ul Normal 0.0-0.7 [facility] Comment on above: Performed By: #### F T4, VITAD, FETIBC, FERR #### [facility] [address] [place] [address] Dr. Cecilio Gale Eosinophils/100 WBC (Bld) 0.6 % Critically low 0.9-7.0 [facility] Comment on above: Performed By: #### F T4, VITAD, FETIBC, FERR #### [facility] [address] [place] [address] Dr. Cecilio Gale Erythrocyte distribution width (RBC) [Ratio] 11.8 % Normal 11.0-15.0 [facility] Comment on above: Performed By: #### F T4, VITAD, FETIBC, FERR #### [facility] [address] [place] [address] Dr. Cecilio Gale Hematocrit (Bld) [Volume fraction] 41.3 % Normal 36.0-48.0 [facility] Comment on above: Performed By: #### F T4, VITAD, FETIBC, FERR #### [facility] [address] [place] [address] Dr. Cecilio Gale Hemoglobin (Bld) [Mass/Vol] 14.5 g/dL Normal 12.0-16.0 [facility] Comment on above: Performed By: #### F T4, VITAD, FETIBC, FERR #### [facility] [address] [place] [address] Dr. Cecilio Gale IG # 0.01 10e3/ul Normal 0.00-0.03 [facility] Comment on above: Performed By: #### F T4, VITAD, FETIBC, FERR #### [facility] [address] [place] [address] Dr. Cecilio Gale IG % 0.2 % Normal 0.0-0.5 [facility] Comment on above: Performed By: #### F T4, VITAD, FETIBC, FERR #### [facility] [address] [place] [address] Dr. Cecilio Gale LYMPH # 1.8 103/ul Normal 1.2-3.8 [facility] Comment on above: Performed By: #### F T4, VITAD, FETIBC, FERR #### [facility] [address] [place] [address] Dr. Cecilio Gale Lymphocytes/100 WBC (Bld) 39.1 % Normal 20.5-60.0 [facility] Comment on above: Performed By: #### F T4, VITAD, FETIBC, FERR #### [facility] [address] [place] [address] Dr. Cecilio Gale MANUAL DIFF REQ NO Normal [facility] Comment on above: Performed By: #### F T4, VITAD, FETIBC, FERR #### [facility] [address] [place] [address] Dr. Cecilio Gale MCH (RBC) [Entitic mass] 32.7 pg Normal 26.7-34.0 [facility] Comment on above: Performed By: #### F T4, VITAD, FETIBC, FERR #### [facility] [address] [place] [address] Dr. Cecilio Gale MCHC (RBC) [Mass/Vol] 35.1 g/dL Normal 29.9-35.2 [facility] Comment on above: Performed By: #### F T4, VITAD, FETIBC, FERR #### [facility] [address] [place] [address] Dr. Cecilio Gale MCV (RBC) [Entitic vol] 93.0 fL Normal 81.0-99.0 [facility] Comment on above: Performed By: #### F T4, VITAD, FETIBC, FERR #### [facility] [address] [place] [address] Dr. Cecilio Gale MONO # 0.4 103/ul Normal 0.3-0.8 [facility] Comment on above: Performed By: #### F T4, VITAD, FETIBC, FERR #### [facility] [address] [place] [address] Dr. Cecilio Gale Monocytes/100 WBC (Bld) 9.2 % Normal 1.7-12.0 [facility] Comment on above: Performed By: #### F T4, VITAD, FETIBC, FERR #### [facility] [address] [place] [address] Dr. Cecilio Gale NEUT # 2.3 103/ul Normal 1.4-6.5 [facility] Comment on above: Performed By: #### F T4, VITAD, FETIBC, FERR #### [facility] [address] [place] [address] Dr. Cecilio Gale Neutrophils/100 WBC (Bld) 50.0 % Normal 43.0-75.0 [facility] Comment on above: Performed By: #### F T4, VITAD, FETIBC, FERR #### [facility] [address] [place] [address] Dr. Cecilio Gale Platelet mean volume (Bld) [Entitic vol] 8.6 fL Critically low 9.5-13.5 [facility] Comment on above: Performed By: #### F T4, VITAD, FETIBC, FERR #### [facility] [address] [place] [address] Dr. Cecilio Gale PLT 354 103/ul Normal 150-450 [facility] Comment on above: Performed By: #### F T4, VITAD, FETIBC, FERR #### [facility] [address] [place] [address] Dr. Cecilio Gale RBC 4.44 106/ul Normal 4.20-5.40 [facility] Comment on above: Performed By: #### F T4, VITAD, FETIBC, FERR #### [facility] [address] [place] [address] Dr. Cecilio Gale WBC 4.7 103/ul Normal 4.0-11.0 [facility] Comment on above: Performed By: #### F T4, VITAD, FETIBC, FERR #### [facility] [address] [place] [address] Dr. Cecilio Gale CULTURE URINEon 01-11-2023 CULTURE URINE Culture Observations: LIGHT GROWTH OF MIXED GENITAL CAMERON. NO POTENTIAL PATHOGENS SEEN. Normal [facility] Comment on above: Performed By: #### F T4, VITAD, FETIBC, FERR #### [facility] [address] [place] [address] Dr. Cecilio Gale FERRITINon 01-11-2023 Ferritin [Mass/Vol] 132.0 ng/mL Normal 8.0-252.0 [facility] Comment on above: Performed By: #### F T4, VITAD, FETIBC, FERR #### [facility] [address] [place] [address] Dr. Cecilio Gale FREE T3on 01-11-2023 FREE T3 2.03 pg/mlL Critically low 2.18-3.98 [facility] Comment on above: Performed By: #### F T4, VITAD, FETIBC, FERR #### [facility] [address] [place] [address] Dr. Cecilio Gale FREE T4on 01-11-2023 Free T4 [Mass/Vol] 0.82 ng/dL Normal 0.76-1.46 [facility] Comment on above: Performed By: #### F T4, VITAD, FETIBC, FERR #### [facility] [address] [address] [address] Cecilio Gale GLYCOHEMOGLOBIN A1Con 2022 ADA RECOMMENDATION SEE BELOW Normal [facility] Comment on above: Result Comment: ADA RECOMMENDED LIMIT 4.0 - 6.0 ADA THERAPEUTIC TARGET < 7.0 ACTION SUGGESTED > 7.0 Performed By: #### F T4, VITAD, FETIBC, FERR #### [facility] [address] [address] [address] Cecilio Gale Glucose [Mass/Vol] 103 mg/dL Normal [facility] Comment on above: Performed By: #### F T4, VITAD, FETIBC, FERR #### [facility] [address] [place] [address] Dr. Cecilio Gale HbA1c (Bld) [Mass fraction] 5.2 % Normal 4.5-6.2 [facility] Comment on above: Performed By: #### F T4, VITAD, FETIBC, FERR #### [facility] [address] [address] [address] Cecilio Gale IRON AND TIBCon 01-11-2023 % SATURATION 44.6 % Normal [facility] Comment on above: Performed By: #### F T4, VITAD, FETIBC, FERR #### [facility] [address] [place] [address] Dr. Cecilio Gale Iron [Mass/Vol] 121.0 ug/dL Normal 50.0-170.0 [facility] Comment on above: Performed By: #### F T4, VITAD, FETIBC, FERR #### [facility] [address] [place] [address] Dr. Cecilio Gale TIBC DIRECT 271.0 ug/dL Normal 250.0-450.0 [facility] Comment on above: Performed By: #### F T4, VITAD, FETIBC, FERR #### [facility] [address] [place] [address] Dr. Cecilio Gale LIPID PROFILEon 01-11-2023 CHOL-HDL RATIO NORM SEE BELOW Normal [facility] Comment on above: Result Comment: 3.3 - 4.4 LOW RISK 4.4 - 7.1 AVERAGE RISK 7.1 - 11.0 MODERATE RISK >11.0 HIGH RISK Performed By: #### F T4, VITAD, FETIBC, FERR #### [facility] [address] [place] [address] Dr. Cecilio Gale Cholesterol [Mass/Vol] 216 mg/dL Critically high <=200 [facility] Comment on above: Performed By: #### F T4, VITAD, FETIBC, FERR #### [facility] [address] [address] [address] Cecilio Gale Cholesterol in HDL [Mass/Vol] 96 mg/dL Critically high 40-60 [facility] Comment on above: Performed By: #### F T4, VITAD, FETIBC, FERR #### [facility] [address] [place] [address] Dr. Cecilio Gale Cholesterol in LDL [Mass/Vol] 103.0 mg/dL Normal [facility] Comment on above: Performed By: #### F T4, VITAD, FETIBC, FERR #### [facility] [address] [place] [address] Dr. Cecilio Gale Cholesterol.total/Cho lesterol in HDL [Mass ratio] 2.3 {ratio} Normal [facility] Comment on above: Performed By: #### F T4, VITAD, FETIBC, FERR #### [facility] [address] [place] [address] Dr. Cecilio Gale HDL NORMAL > or = 60 mg/dl - LOW CARDIOVASCULAR RISK <40 mg/dl - HIGH CARDIOVASCULAR RISK Normal [facility] Comment on above: Performed By: #### F T4, VITAD, FETIBC, FERR #### [facility] [address] [place] [address] Dr. Cecilio Gale LDL CALC NORMAL SEE BELOW Normal [facility] Comment on above: Result Comment: <100 mg/dl OPTIMAL 100 - 129 mg/dl NEAR OR ABOVE OPTIMAL 130 - 159 mg/dl BORDERLINE HIGH 160 - 189 mg/dl HIGH >190 mg/dl VERY HIGH Performed By: #### F T4, VITAD, FETIBC, FERR #### [facility] [address] [address] [address] Cecilio Gale Triglyceride [Mass/Vol] 86 mg/dL Normal <=150 [facility] Comment on above: Performed By: #### F T4, VITAD, FETIBC, FERR #### [facility] [address] [address] [address] Cecilio Gale VLDL CALC 17.2 mg/dL Normal [facility] Comment on above: Performed By: #### F T4, VITAD, FETIBC, FERR #### [facility] [address] [place] [address] Dr. Cecilio Gale PROF 14(COMP METB)on 023 Albumin [Mass/Vol] 3.8 g/dL Normal 3.4-5.0 [facility] Comment on above: Performed By: #### F T4, VITAD, FETIBC, FERR #### [facility] [address] [place] [address] Dr. Cecilio Gale Albumin/Globulin [Mass ratio] 1.0 {ratio} Normal [facility] Comment on above: Performed By: #### F T4, VITAD, FETIBC, FERR #### [facility] [address] [address] [address] Cecilio Gale ALP [Catalytic activity/Vol] 165 U/L Critically high 46-116 [facility] Comment on above: Performed By: #### F T4, VITAD, FETIBC, FERR #### [facility] [address] [place] [address] Dr. Cecilio Gale ALT [Catalytic activity/Vol] 24 U/L Normal 14-59 [facility] Comment on above: Performed By: #### F T4, VITAD, FETIBC, FERR #### [facility] [address] [place] [address] Dr. Cecilio Gale Anion gap [Moles/Vol] 14.6 mmol/L Normal [facility] Comment on above: Performed By: #### F T4, VITAD, FETIBC, FERR #### [facility] [address] [place] [address] Dr. Cecilio Gale AST [Catalytic activity/Vol] 19 U/L Normal 15-37 [facility] Comment on above: Performed By: #### F T4, VITAD, FETIBC, FERR #### [facility] [address] [place] [address] Dr. Cecilio Gale Bilirubin [Mass/Vol] 0.3 mg/dL Normal 0.2-1.0 [facility] Comment on above: Performed By: #### F T4, VITAD, FETIBC, FERR #### [facility] [address] [place] [address] Dr. Cecilio Gale Calcium [Mass/Vol] 8.9 mg/dL Normal 8.5-10.1 [facility] Comment on above: Performed By: #### F T4, VITAD, FETIBC, FERR #### [facility] [address] [place] [address] Dr. Cecilio Gale Chloride [Moles/Vol] 106 mmol/L Normal 98-107 [facility] Comment on above: Performed By: #### F T4, VITAD, FETIBC, FERR #### [facility] [address] [place] [address] Dr. Cecilio Gale CO2 [Moles/Vol] 25.3 mmol/L Normal 21.0-32.0 [facility] Comment on above: Performed By: #### F T4, VITAD, FETIBC, FERR #### [facility] [address] [place] [address] Dr. Cecilio Gale Creatinine [Mass/Vol] 0.72 mg/dL Normal 0.55-1.02 [facility] Comment on above: Performed By: #### F T4, VITAD, FETIBC, FERR #### [facility] [address] [place] [address] Dr. Cecilio Gale EGFR-AF BURKINAN >60 Normal >=60 [facility] Comment on above: Performed By: #### F T4, VITAD, FETIBC, FERR #### [facility] [address] [place] [address] Dr. Cecilio Gale EGFR-NON AF BURKINAN >60 Normal >=60 [facility] Comment on above: Performed By: #### F T4, VITAD, FETIBC, FERR #### [facility] [address] [place] [address] Dr. Cecilio Gale Globulin (S) [Mass/Vol] 3.7 g/dL Normal [facility] Comment on above: Performed By: #### F T4, VITAD, FETIBC, FERR #### [facility] [address] [place] [address] Dr. Cecilio Gale Glucose [Mass/Vol] 112 mg/dL Critically high 74-106 [facility] Comment on above: Performed By: #### F T4, VITAD, FETIBC, FERR #### [facility] [address] [place] [address] Dr. Cecilio Gale Potassium [Moles/Vol] 4.0 mmol/L Normal 3.5-5.1 [facility] Comment on above: Performed By: #### F T4, VITAD, FETIBC, FERR #### [facility] [address] [place] [address] Dr. Cecilio Gale Protein [Mass/Vol] 7.5 g/dL Normal 6.4-8.2 [facility] Comment on above: Performed By: #### F T4, VITAD, FETIBC, FERR #### [facility] [address] [place] [address] Dr. Cecilio Gale Sodium [Moles/Vol] 142 mmol/L Normal 136-145 [facility] Comment on above: Performed By: #### F T4, VITAD, FETIBC, FERR #### [facility] [address] [place] [address] Dr. Cecilio Gale Urea nitrogen [Mass/Vol] 9.0 mg/dL Normal 7.0-18.0 [facility] Comment on above: Performed By: #### F T4, VITAD, FETIBC, FERR #### [facility] [address] [place] [address] Dr. Cecilio Gale Urea nitrogen/Creatinine [Mass ratio] 12.5 mg/mg Normal [facility] Comment on above: Performed By: #### F T4, VITAD, FETIBC, FERR #### [facility] [address] [place] [address] Dr. Cecilio Gale TSHon 01-11-2023 TSH 1.685 uIU/mL Normal 0.358-3.740 [facility] Comment on above: Performed By: #### F T4, VITAD, FETIBC, FERR #### [facility] [address] [place] [address] Dr. Cecilio Gale UA RANDOM W/MICROSCOPICon BACTERIA NONE SEEN Normal NONE SEEN [facility] Comment on above: Performed By: #### F T4, VITAD, FETIBC, FERR #### [facility] [address] [place] [address] Dr. Cecilio Gale Bilirubin Ql (U) Negative Normal NEGATIVE [facility] Comment on above: Performed By: #### F T4, VITAD, FETIBC, FERR #### [facility] [address] [place] [address] Dr. Cecilio Gale CAST NONE SEEN Normal NONE SEEN [facility] Comment on above: Performed By: #### F T4, VITAD, FETIBC, FERR #### [facility] [address] [place] [address] Dr. Cecilio Gale Clarity (U) CLEAR Normal CLEAR [facility] Comment on above: Performed By: #### F T4, VITAD, FETIBC, FERR #### [facility] [address] [place] [address] Dr. Cecilio Gale Color (U) LT. YELLOW Normal YELLOW [facility] Comment on above: Performed By: #### F T4, VITAD, FETIBC, FERR #### [facility] [address] [place] [address] Dr. Cecilio Gale Crystals LM Nom (Urine sed) NONE SEEN Normal NONE SEEN [facility] Comment on above: Performed By: #### F T4, VITAD, FETIBC, FERR #### [facility] [address] [place] [address] Dr. Cecilio Gale Epithelial cells LM Ql (Urine sed) FEW Abnormal NONE SEEN /RARE [facility] Comment on above: Performed By: #### F T4, VITAD, FETIBC, FERR #### [facility] [address] [address] [address] Cecilio Gale Glucose Ql (U) Negative Normal NEGATIVE [facility] Comment on above: Performed By: #### F T4, VITAD, FETIBC, FERR #### [facility] [address] [address] [address] Cecilio Gale Hemoglobin Ql (U) Negative Normal NEGATIVE [facility] Comment on above: Performed By: #### F T4, VITAD, FETIBC, FERR #### [facility] [address] [place] [address] Dr. Cecilio Gale Ketones Ql (U) Negative Normal NEGATIVE [facility] Comment on above: Performed By: #### F T4, VITAD, FETIBC, FERR #### [facility] [address] [place] [address] Dr. Cecilio Gale LEUKOCYTES Negative Normal NEGATIVE [facility] Comment on above: Performed By: #### F T4, VITAD, FETIBC, FERR #### [facility] [address] [address] [address] Cecilio Gale MUCOUS NONE SEEN Normal NONE SEEN [facility] Comment on above: Performed By: #### F T4, VITAD, FETIBC, FERR #### [facility] [address] [address] [address] Cecilio Gale Nitrite Ql (U) Negative Normal NEGATIVE [facility] Comment on above: Performed By: #### F T4, VITAD, FETIBC, FERR #### [facility] [address] [address] [address] Cecilio Gale pH (U) 7.5 [pH] Normal 5-9 [facility] Comment on above: Performed By: #### F T4, VITAD, FETIBC, FERR #### [facility] [address] [address] [address] Cecilio Gale RBC NONE SEEN Abnormal 0-2 [facility] Comment on above: Performed By: #### F T4, VITAD, FETIBC, FERR #### [facility] [address] [address] [address] Cecilio Gale SPEC GRAVITY 1.015 Normal 1.005-<=1.025 [facility] Comment on above: Performed By: #### F T4, VITAD, FETIBC, FERR #### [facility] [address] [address] [address] Cecilio Gale UA PROTEIN Negative Normal NEGATIVE/ TRACE [facility] Comment on above: Performed By: #### F T4, VITAD, FETIBC, FERR #### [facility] [address] [place] [address] Dr. Cecilio Gale Urobilinogen Qn (U) 0.2 {Anita'U}/dL Normal 0.2 - 1. 0 [facility] Comment on above: Performed By: #### F T4, VITAD, FETIBC, FERR #### [facility] [address] [place] [address] Dr. Cecilio Gale WBC NONE SEEN Normal NONE SEEN [facility] Comment on above: Performed By: #### F T4, VITAD, FETIBC, FERR #### [facility] [address] [place] [address] Dr. Cecilio Gale VITAMIN D 25 OHon 01-11-2023 VIT D 25-OH 60.7 ng/mL Normal [facility] Comment on above: Performed By: #### F T4, VITAD, FETIBC, FERR #### [facility] [address] [place] [address] Dr. Cecilio Gale VIT D RANGES SEE BELOW Normal [facility] Comment on above: Result Comment: <20 ng/mL Vit D deficient 20 - <30 ng/mL Vit D insufficient 30 - 100 ng/mL Vit D sufficient >100 ng/mL Potential Toxicity Performed By: #### F T4, VITAD, FETIBC, FERR #### [facility] [address] [place] [address] Dr. Cecilio Gale LACOSAMIDEon 10-14-2022 Lacosamide 5.4 ug/mL Normal 5.0-10.0 [facility] Comment on above: Result Comment: This test was developed and its performance characteristics determined by [employer]. It has not been cleared or approved by the Food and Drug Administration. Limit of Detection 0.5 . Mean plasma concentrations following maintenance dose 200 mg/day 4.99 +/- 2.51 ug/mL 400 mg/day 9.35 +/- 4.22 ug/mL 600 mg/day 12.46 +/- 5.60 ug/mL Performed By: #### F T4, VITAD, FETIBC, FERR #### [facility] [address] [address] [address] Cecilio Gale LEVETIRACETAM, SERUM OR PLAS MAon 10-12-2022 Levetiracetam, S 26.4 ug/mL Normal 10.0-40.0 [facility] Comment on above: Performed By: #### F T4, VITAD, FETIBC, FERR #### [facility] [address] [address] [address] Cecilio Gale TEGRETOLon 10-08-2022 TEGRETOL <0.5 Critically low 4.0-12.0 [facility] Comment on above: Performed By: #### C ARB #### [facility] [address] [address] [address] Cecilio Gale General Surgery Office/Clini c [...] 50,000 intl units (1.25 mg) oral capsule, 47081 International_Unit= 1 cap(s), Oral, qWeek Allergies Depakote [...] mRNA BNT-162b2 vax 01/17/2021 Given Prophylaxis Normal [facility] Comment on above: Result Comment: Elec [...] neoplasm of colon Vitamin D deficiency Normal [facility] Reminderson 09-22-2022 Reminders - From: Delmy Rebollar LPN To: N - Clinical; Sent: 09/22/2022 15:29:30 EST Show up: 08/09/2025 07:00:00 EDT Subject: colonoscopy recall Due Date/Time: 09/09/2025 07:00:00 EST Reminder/Recall Patient is due for colonoscopy 09/09/2025 due to history of tubular adenoma. Normal [facility] Pathology Noteon 09-11-2022 Pathology Note [id number] #1.00CD:127 Normal [facility] Outside Colonoscopyon 2021 Outside Colonoscopy [id number] #1.00CD:127 Normal [facility] Lab Reportson 09-08-2022 Lab Reports [id number] #1.00CD:127 Normal [facility] Covid-19 PCR (CVDTB)on 08-10 SARS-CoV-2 (COVID-19) RNA CAL+probe Ql (Unsp spec) Not detected Normal NOT DETECTED [facility] Comment on above: Result Comment: This test is not yet approved or cleared by the [place] FDA. When there are no FDA-approved or cleared tests available, and other criteria are met, FDA can make tests available under an emergency access mechanism called an Emergency Use Authorization (EUA). The EUA for this test is supported by the Senior Javascript Developer of Health and Human Service's (HHS's) declaration [...] SARS-CoV-2. Performed By: #### C VDTB #### [facility] [address] [place] [address] Dr. Cecilio Gale Pre-Certification Formon Pre-Certification Form [id number] #1.00CD:127 Normal [facility] CBC W Auto Differential pane l (Bld)on 08-21-2022 Basophils (Bld) [#/Vol] 0.05 10*3/uL Normal <0.11 [facility] Comment on above: Order Comment: Speci men Type: BLOOD SPECIMEN Ordering Facility: [facility] Address: [address] [address] Performed By: #### 5 7021-8 #### [facility] CLIA [id number] [address] [place] [address]8877 Basophils/100 WBC (Bld) 0.8 % Normal [facility] Comment on above: Order Comment: Speci men Type: BLOOD SPECIMEN Ordering Facility: [facility] Address: [address] [address] Performed By: #### 5 7021-8 #### [facility] CLIA [id number] [address] [place] [address]357 Differential cell count method Nom (Bld) Auto Normal [facility] Comment on above: Order Comment: Speci men Type: BLOOD SPECIMEN Ordering Facility: [facility] Address: [address] [address] Performed By: #### 5 7021-8 #### [facility] CLIA [id number] [address] [place] [address] 05617 Eosinophils (Bld) [#/Vol] 10*3/uL Normal <0.46 [facility] Comment on above: Order Comment: Speci men Type: BLOOD SPECIMEN Ordering Facility: [facility] Address: [address] [place] [address] Performed By: #### 5 7021-8 #### [facility] CLIA [id number] [address] [place] [address] 37678 Eosinophils/100 WBC (Bld) 0.0 % Normal [facility] Comment on above: Order Comment: Speci men Type: BLOOD SPECIMEN Ordering Facility: [facility] Address: [address] [place] [address] Performed By: #### 5 7021-8 #### [facility] CLIA [id number] [address] [place] [address] 13083 Erythrocyte distribution width (RBC) [Ratio] 12.1 % Normal 11.5-15.0 [facility] Comment on above: Order Comment: Speci men Type: BLOOD SPECIMEN Ordering Facility: [facility] Address: [address] [place] [address] Performed By: #### 5 7021-8 #### [facility] CLIA [id number] [address] [place] [address] 23368 Hematocrit (Bld) [Volume fraction] 40.8 % Normal 36.0-46.0 [facility] Comment on above: Order Comment: Speci men Type: BLOOD SPECIMEN Ordering Facility: [facility] Address: [address] [place] [address] Performed By: #### 5 7021-8 #### [facility] CLIA [id number] [address] [place] [address] 80735 Hemoglobin (Bld) [Mass/Vol] 14.3 g/dL Normal 11.5-15.5 [facility] Comment on above: Order Comment: Speci men Type: BLOOD SPECIMEN Ordering Facility: [facility] Address: [address] [place] [address] Performed By: #### 5 7021-8 #### [facility] CLIA [id number] [address] [place] [address] IMMATURE GRAN % 0.2 % Normal [facility] Comment on above: Order Comment: Speci men Type: BLOOD SPECIMEN Ordering Facility: [facility] Address: [address] [place] [address] Performed By: #### 5 7021-8 #### [facility] CLIA [id number] [address] [place] [address] 17912 IMMATURE GRAN ABS <0.03 Normal <0.10 [facility] Comment on above: Order Comment: Speci men Type: BLOOD SPECIMEN Ordering Facility: [facility] Address: [address] [place] [address] Performed By: #### 5 7021-8 #### [facility] CLIA [id number] [address] [place] [address] 85990 Lymphocytes (Bld) [#/Vol] 2.64 10*3/uL Normal 1.00-4.00 [facility] Comment on above: Order Comment: Speci men Type: BLOOD SPECIMEN Ordering Facility: [facility] Address: [address] [place] [address] Performed By: #### 5 7021-8 #### [facility] CLIA [id number] [address] [place] [address] 59589 Lymphocytes/100 WBC (Bld) 41.4 % Normal [facility] Comment on above: Order Comment: Speci men Type: BLOOD SPECIMEN Ordering Facility: [facility] Address: [address] [place] [address] Performed By: #### 5 7021-8 #### [facility] CLIA [id number] [address] [place] [address] 89585 MCH (RBC) [Entitic mass] 33.2 pg Normal 26.0-34.0 [facility] Comment on above: Order Comment: Speci men Type: BLOOD SPECIMEN Ordering Facility: [facility] Address: [address] [place] [address] Performed By: #### 5 7021-8 #### [facility] CLIA [id number] [address] [place] [address] 82120 MCHC (RBC) [Mass/Vol] 35.0 g/dL Normal 30.5-36.0 [facility] Comment on above: Order Comment: Speci men Type: BLOOD SPECIMEN Ordering Facility: [facility] Address: [address] [place] [address] Performed By: #### 5 7021-8 #### [facility] CLIA [id number] [address] [place] [address] 65414 MCV (RBC) [Entitic vol] 94.7 fL Normal 80.0-100.0 [facility] Comment on above: Order Comment: Speci men Type: BLOOD SPECIMEN Ordering Facility: [facility] Address: [address] [place] [address] Performed By: #### 5 7021-8 #### [facility] CLIA [id number] [address] [place] [address] 80964 Monocytes (Bld) [#/Vol] 0.61 10*3/uL Normal <0.87 [facility] Comment on above: Order Comment: Speci men Type: BLOOD SPECIMEN Ordering Facility: [facility] Address: [address] [place] [address] Performed By: #### 5 7021-8 #### [facility] CLIA [id number] [address] [place] [address] 44869 Monocytes/100 WBC (Bld) 9.6 % Normal [facility] Comment on above: Order Comment: Speci men Type: BLOOD SPECIMEN Ordering Facility: [facility] Address: [address] [address] Performed By: #### 5 7021-8 #### [facility] CLIA [id number] [address] [place] [address] 42004 Neutrophils (Bld) [#/Vol] 3.06 10*3/uL Normal 1.45-7.50 [facility] Comment on above: Order Comment: Speci men Type: BLOOD SPECIMEN Ordering Facility: [facility] Address: [address] [place] [address] Performed By: #### 5 7021-8 #### [facility] CLIA [id number] [address] [place] [address] 63648 Neutrophils/100 WBC (Bld) 48.0 % Normal [facility] Comment on above: Order Comment: Speci men Type: BLOOD SPECIMEN Ordering Facility: [facility] Address: [address] [place] [address] Performed By: #### 5 7021-8 #### [facility] CLIA [id number] [address] [place] [address] 13664 Nucleated RBC (Bld) [#/Vol] 10*3/uL Normal <0.01 [facility] Comment on above: Order Comment: Speci men Type: BLOOD SPECIMEN Ordering Facility: [facility] Address: [address] [place] [address] Performed By: #### 5 7021-8 #### [facility] CLIA [id number] [address] [place] [address] 18889 Nucleated RBC/100 WBC (Bld) [Ratio] 0.0 /100 WBC Normal [facility] Comment on above: Order Comment: Speci men Type: BLOOD SPECIMEN Ordering Facility: [facility] Address: [address] [place] [address] Performed By: #### 5 7021-8 #### [facility] CLIA [id number] [address] [place] [address] 30854 Platelet mean volume (Bld) [Entitic vol] 8.3 fL Low 9.0-12.7 [facility] Comment on above: Order Comment: Speci men Type: BLOOD SPECIMEN Ordering Facility: [facility] Address: [address] [place] [address] Performed By: #### 5 7021-8 #### [facility] CLIA [id number] [address] [place] [address] 33256 Platelets (Bld) [#/Vol] 345 10*3/uL Normal 150-400 [facility] Comment on above: Order Comment: Speci men Type: BLOOD SPECIMEN Ordering Facility: [facility] Address: [address] [place] [address] Performed By: #### 5 7021-8 #### [facility] CLIA [id number] [address] [place] [address] 75900 RBC (Bld) [#/Vol] 4.31 10*6/uL Normal 3.90-5.20 [facility] Comment on above: Order Comment: Speci men Type: BLOOD SPECIMEN Ordering Facility: [facility] Address: [address] [place] [address] Performed By: #### 5 7021-8 #### [facility] CLIA [id number] [address] [place] [address] 26382 WBC (Bld) [#/Vol] 6.37 10*3/uL Normal 3.70-11.00 [facility] Comment on above: Order Comment: Speci men Type: BLOOD SPECIMEN Ordering Facility: [facility] Address: [address] [place] [address] Performed By: #### 5 7021-8 #### [facility] CLIA [id number] [address] [place] [address] 82308 Comprehensive metabolic 2000 panelon 08-21-2022 Albumin [Mass/Vol] 4.3 g/dL Normal 3.9-4.9 [facility] Comment on above: Order Comment: Speci men Type: BLOOD SPECIMEN Ordering Facility: [facility] Address: [address] [address] Performed By: #### 2 4323-8 #### [facility] CLIA [id number] [address] [place] [address] ALP [Catalytic activity/Vol] 167 U/L High 34-123 [facility] Comment on above: Order Comment: Speci men Type: BLOOD SPECIMEN Ordering Facility: [facility] Address: [address] [address] Performed By: #### 2 4323-8 #### [facility] CLIA [id number] [address] [place] [address] ALT [Catalytic activity/Vol] 13 U/L Normal 7-38 [facility] Comment on above: Order Comment: Speci men Type: BLOOD SPECIMEN Ordering Facility: [facility] Address: [address] [place] [address] Performed By: #### 2 4323-8 #### [facility] CLIA [id number] [address] [place] [address] 71506 Anion gap [Moles/Vol] 9 mmol/L Normal 9-18 [facility] Comment on above: Order Comment: Speci men Type: BLOOD SPECIMEN Ordering Facility: [facility] Address: [address] [place] [address] Performed By: #### 2 4323-8 #### [facility] CLIA [id number] [address] [place] [address] AST [Catalytic activity/Vol] 16 U/L Normal 13-35 [facility] Comment on above: Order Comment: Speci men Type: BLOOD SPECIMEN Ordering Facility: [facility] Address: [facility] [address] Performed By: #### 2 4323-8 #### [facility] CLIA [id number] [address] [place] [address] Bilirubin [Mass/Vol] 0.3 mg/dL Normal 0.2-1.3 [facility] Comment on above: Order Comment: Speci men Type: BLOOD SPECIMEN Ordering Facility: [facility] Address: [address] [address] Performed By: #### 2 4323-8 #### [facility] CLIA [id number] [address] [place] [address] Calcium [Mass/Vol] 9.5 mg/dL Normal 8.5-10.2 [facility] Comment on above: Order Comment: Speci men Type: BLOOD SPECIMEN Ordering Facility: [facility] Address: [address] [place] [address] Performed By: #### 2 4323-8 #### [facility] CLIA [id number] [address] [place] [address] 39732 Chloride [Moles/Vol] 98 mmol/L Normal 97-105 [facility] Comment on above: Order Comment: Speci men Type: BLOOD SPECIMEN Ordering Facility: [facility] Address: [address] [place] [address] Performed By: #### 2 4323-8 #### [facility] CLIA [id number] [address] [place] [address] 58806 CO2 [Moles/Vol] 28 mmol/L Normal 22-30 [facility] Comment on above: Order Comment: Speci men Type: BLOOD SPECIMEN Ordering Facility: [facility] Address: [address] [place] [address] Performed By: #### 2 4323-8 #### [facility] CLIA [id number] [address] [place] [address] 60558 Creatinine [Mass/Vol] 0.74 mg/dL Normal 0.58-0.96 [facility] Comment on above: Order Comment: Speci men Type: BLOOD SPECIMEN Ordering Facility: [facility] Address: [address] [place] [address] Performed By: #### 2 4323-8 #### [facility] CLIA [id number] [address] [place] [address] 04242 ESTIMATED GLOMERULAR FILTRATION RATE 96 mL/min/1.73m??? Normal >=60 [facility] Comment on above: Order Comment: Jesus bundy Type: BLOOD SPECIMEN Ordering Facility: [facility] Address: [address] [place], [place] [address] Result Comment: Domonique mated Glomerular Filtration Rate [...] GFR. Performed By: #### 2 4323-8 #### [facility] CLIA [id number] [address] [place] [address] 70060 Glucose [Mass/Vol] 110 mg/dL High 74-99 [facility] Comment on above: Order Comment: Jesus bundy Type: BLOOD SPECIMEN Ordering Facility: [facility] Address: [address] [place], [place] [address] Result Comment: The [place] [employer] (ADA) provides guidance for cutoff [...] Standards of Medical Care in Diabetes 2016, [place] [employer]. Diabetes Care. 2016.39(Suppl 1). Performed By: #### 2 4323-8 #### [facility] CLIA [id number] [address] [place] [address] 15548 Potassium [Moles/Vol] 4.6 mmol/L Normal 3.7-5.1 [facility] Comment on above: Order Comment: Speci men Type: BLOOD SPECIMEN Ordering Facility: [facility] Address: [address] [address] Performed By: #### 2 4323-8 #### [facility] CLIA [id number] [address] [place] [address] 42325 Protein [Mass/Vol] 7.1 g/dL Normal 6.3-8.0 [facility] Comment on above: Order Comment: Speci men Type: BLOOD SPECIMEN Ordering Facility: [facility] Address: [address] [place] [address] Performed By: #### 2 4323-8 #### [facility] CLIA [id number] [address] [place] [address] 36674 Sodium [Moles/Vol] 135 mmol/L Low 136-144 [facility] Comment on above: Order Comment: Speci men Type: BLOOD SPECIMEN Ordering Facility: [facility] Address: [address] [place] [address] Performed By: #### 2 4323-8 #### [facility] CLIA [id number] [address] [place] [address] 06981 Urea nitrogen [Mass/Vol] 10 mg/dL Normal 7-21 [facility] Comment on above: Order Comment: Speci men Type: BLOOD SPECIMEN Ordering Facility: [facility] Address: [address] [place] [address] Performed By: #### 2 4323-8 #### [facility] CLIA [id number] [address] [place] [address] 46209 Ferritin SerPl-mCncon 2021 Ferritin [Mass/Vol] 196.0 ng/mL Normal 14.7-205.1 [facility] Comment on above: Order Comment: Speci men Type: BLOOD SPECIMEN Ordering Facility: [facility] Address: [address] [place] [address] Performed By: #### 5 0190-8, 2276-4 #### [facility] CLIA [id number] [address] [place] [address] OF [employer] capaci ty panelon 08-21-2022 Iron [Mass/Vol] 133 ug/dL Normal 41-186 [facility] Comment on above: Order Comment: Speci men Type: BLOOD SPECIMEN Ordering Facility: [facility] Address: [address] [place] [address] Performed By: #### 5 0190-8, 2276-4 #### [facility] CLIA [id number] [address] [place] [address] OF [facility] Iron binding capacity [Mass/Vol] 280 ug/dL Normal 232-386 [facility] Comment on above: Order Comment: Speci men Type: BLOOD SPECIMEN Ordering Facility: [facility] Address: [address] [place] [address] Performed By: #### 5 0190-8, 6-4 #### [facility] CLIA [id number] [address] [place] [address] OF [facility] Iron/TIBC [Molar ratio] 47.5 % Normal 15.0-57.0 [facility] Comment on above: Order Comment: Speci men Type: BLOOD SPECIMEN Ordering Facility: [facility] Address: [address] [place] [address] Performed By: #### 5 0190-8, 2276-4 #### [facility] CLIA [id number] [address] [place] [address] [place] Consent for Procedure/Surger yon 08-05-2022 Consent for Procedure/Surgery [id number] #[id number] Normal [facility] Ambulatory Visit Summaryon 0 08-04-2022 Ambulatory [...] neoplasm of colon Vitamin D deficiency Normal [facility] Comprehensive metabolic 2000 panelon 07-30-2022 Albumin [Mass/Vol] 4.4 g/dL 3.9 - 4.9 g/dL [facility] ALP [Catalytic activity/Vol] 166 U/L High 34 - 123 U/L [facility] ALT [Catalytic activity/Vol] 18 U/L 7 - 38 U/L [facility] Anion gap [Moles/Vol] 11 mmol/L 9 - 18 mmol/L [facility] AST [Catalytic activity/Vol] 21 U/L 13 - 35 U/L [facility] Bilirubin [Mass/Vol] 0.4 mg/dL 0.2 - 1 .3 mg/dL [facility] Calcium [Mass/Vol] 9.5 mg/dL 8.5 - 10. 2 mg/dL [facility] Chloride [Moles/Vol] 98 mmol/L 97 - 10 5 mmol/L [facility] CO2 [Moles/Vol] 25 mmol/L 22 - 30 mmol/L [facility] Creatinine [Mass/Vol] 0.66 mg/dL 0.58 - 0.96 mg/dL [facility] Estimated Glomerular Filtration Rate 104 mL/min/1.73m >=60 mL/min/1.73m [facility] Glucose [Mass/Vol] 91 mg/dL 74 - 99 mg/dL [facility] Potassium [Moles/Vol] 4.8 mmol/L 3.7 - 5.1 mmol/L [facility] Protein [Mass/Vol] 7.3 g/dL 6.3 - 8.0 g/dL [facility] Sodium [Moles/Vol] 134 mmol/L Low 136 - 144 mmol/L [facility] Urea nitrogen [Mass/Vol] 8 mg/dL 7 - 21 mg/dL [facility] FERRITIN BLDon 07-30-2022 Ferritin [Mass/Vol] 176.0 ng/mL 14.7 - 2 05.1 ng/mL [facility] Iron and Iron binding capaci ty panelon 07-30-2022 Iron [Mass/Vol] 149 ug/dL 41 - 186 ug/dL [facility] Iron binding capacity [Mass/Vol] 273 ug/dL 232 - 386 ug/dL [facility] Iron/TIBC [Molar ratio] 54.6 % 15.0 - 57.0 % [facility] CBC W Auto Differential pane l (Bld)on 07-29-2022 Basophils (Bld) [#/Vol] 0.05 10*3/uL Normal <0.11 [facility] Comment on above: Order Comment: Speci men Type: BLOOD SPECIMEN Ordering Facility: [facility] Address: [address] [place] [address] Performed By: #### 5 7021-8 #### [facility] CLIA [id number] [address] [place] [address]272 Basophils/100 WBC (Bld) 0.9 % Normal [facility] Comment on above: Order Comment: Speci men Type: BLOOD SPECIMEN Ordering Facility: [facility] Address: [address] [place] [address] Performed By: #### 5 7021-8 #### [facility] CLIA [id number] [address] [place] [address] Differential cell count method Nom (Bld) Auto Normal [facility] Comment on above: Order Comment: Speci men Type: BLOOD SPECIMEN Ordering Facility: [facility] Address: [address] [place] [address] Performed By: #### 5 7021-8 #### [facility] CLIA [id number] [address] [place] [address]34 Eosinophils (Bld) [#/Vol] 10*3/uL Normal <0.46 [facility] Comment on above: Order Comment: Speci men Type: BLOOD SPECIMEN Ordering Facility: [facility] Address: [address] [place] [address] Performed By: #### 5 7021-8 #### [facility] CLIA [id number] [address] [place] [address] Eosinophils/100 WBC (Bld) 0.0 % Normal [facility] Comment on above: Order Comment: Speci men Type: BLOOD SPECIMEN Ordering Facility: [facility] Address: [address] [place] [address] Performed By: #### 5 7021-8 #### [facility] CLIA [id number] [address] [place] [address]3587 Erythrocyte distribution width (RBC) [Ratio] 12.1 % Normal 11.5-15.0 [facility] Comment on above: Order Comment: Speci men Type: BLOOD SPECIMEN Ordering Facility: [facility] Address: [address] [place] [address] Performed By: #### 5 7021-8 #### [facility] CLIA [id number] [address] [place] [address]453 Hematocrit (Bld) [Volume fraction] 41.6 % Normal 36.0-46.0 [facility] Comment on above: Order Comment: Speci men Type: BLOOD SPECIMEN Ordering Facility: [facility] Address: [address] [place] [address] Performed By: #### 5 7021-8 #### [facility] CLIA [id number] [address] [place] [address]651 Hemoglobin (Bld) [Mass/Vol] 14.5 g/dL Normal 11.5-15.5 [facility] Comment on above: Order Comment: Speci men Type: BLOOD SPECIMEN Ordering Facility: [facility] Address: [address] [place] [address] Performed By: #### 5 7021-8 #### [facility] CLIA [id number] [address] [place] [address]226 IMMATURE GRAN % 0.3 % Normal [facility] Comment on above: Order Comment: Speci men Type: BLOOD SPECIMEN Ordering Facility: [facility] Address: [address] [place] [address] Performed By: #### 5 7021-8 #### [facility] CLIA [id number] [address] [place] [address]997 IMMATURE GRAN ABS <0.03 Normal <0.10 [facility] Comment on above: Order Comment: Speci men Type: BLOOD SPECIMEN Ordering Facility: [facility] Address: [address] [place] [address] Performed By: #### 5 7021-8 #### [facility] CLIA [id number] [address] [place] [address] 43406 Lymphocytes (Bld) [#/Vol] 2.09 10*3/uL Normal 1.00-4.00 [facility] Comment on above: Order Comment: Speci men Type: BLOOD SPECIMEN Ordering Facility: [facility] Address: [address] [place] [address] Performed By: #### 5 7021-8 #### [facility] CLIA [id number] [address] [place] [address] 11694 Lymphocytes/100 WBC (Bld) 36.0 % Normal [facility] Comment on above: Order Comment: Speci men Type: BLOOD SPECIMEN Ordering Facility: [facility] Address: [address] [place] [address] Performed By: #### 5 7021-8 #### [facility] CLIA [id number] [address] [place] [address] 52411 MCH (RBC) [Entitic mass] 33.0 pg Normal 26.0-34.0 [facility] Comment on above: Order Comment: Speci men Type: BLOOD SPECIMEN Ordering Facility: [facility] Address: [address] [place], [place] [address] Performed By: #### 5 7021-8 #### [facility] CLIA [id number] [address] [place] [address] 79275 MCHC (RBC) [Mass/Vol] 34.9 g/dL Normal 30.5-36.0 [facility] Comment on above: Order Comment: Speci men Type: BLOOD SPECIMEN Ordering Facility: [facility] Address: [address] [place], [place] [address] Performed By: #### 5 7021-8 #### [facility] CLIA [id number] [address] [place] [address] 94677 MCV (RBC) [Entitic vol] 94.8 fL Normal 80.0-100.0 [facility] Comment on above: Order Comment: Speci men Type: BLOOD SPECIMEN Ordering Facility: [facility] Address: [address] [place] [address] Performed By: #### 5 7021-8 #### [facility] CLIA [id number] [address] [place] [address] 35880 Monocytes (Bld) [#/Vol] 0.44 10*3/uL Normal <0.87 [facility] Comment on above: Order Comment: Speci men Type: BLOOD SPECIMEN Ordering Facility: [facility] Address: [address] [place] [address] Performed By: #### 5 7021-8 #### [facility] CLIA [id number] [address] [place] [address] 96498 Monocytes/100 WBC (Bld) 7.6 % Normal [facility] Comment on above: Order Comment: Speci men Type: BLOOD SPECIMEN Ordering Facility: [facility] Address: [address] [place] [address] Performed By: #### 5 7021-8 #### [facility] CLIA [id number] [address] [place] [address] 44106 Neutrophils (Bld) [#/Vol] 3.21 10*3/uL Normal 1.45-7.50 [facility] Comment on above: Order Comment: Speci men Type: BLOOD SPECIMEN Ordering Facility: [facility] Address: [address] [place] [address] Performed By: #### 5 7021-8 #### [facility] CLIA [id number] [address] [place] [address] 46625 Neutrophils/100 WBC (Bld) 55.2 % Normal [facility] Comment on above: Order Comment: Speci men Type: BLOOD SPECIMEN Ordering Facility: [facility] Address: [address] [place], [place] [address] Performed By: #### 5 7021-8 #### [facility] CLIA [id number] [address] [place] [address] 47707 Nucleated RBC (Bld) [#/Vol] 10*3/uL Normal <0.01 [facility] Comment on above: Order Comment: Speci men Type: BLOOD SPECIMEN Ordering Facility: [facility] Address: [address] [place] [address] Performed By: #### 5 7021-8 #### [facility] CLIA [id number] [address] [place] [address] 94240 Nucleated RBC/100 WBC (Bld) [Ratio] 0.0 /100 WBC Normal [facility] Comment on above: Order Comment: Speci men Type: BLOOD SPECIMEN Ordering Facility: [facility] Address: [address] [place] [address] Performed By: #### 5 7021-8 #### [facility] CLIA [id number] [address] [place] [address] 41301 Platelet mean volume (Bld) [Entitic vol] 8.6 fL Low 9.0-12.7 [facility] Comment on above: Order Comment: Speci men Type: BLOOD SPECIMEN Ordering Facility: [facility] Address: [address] [place] [address] Performed By: #### 5 7021-8 #### [facility] CLIA [id number] [address] [place] [address] 61624 Platelets (Bld) [#/Vol] 311 10*3/uL Normal 150-400 [facility] Comment on above: Order Comment: Speci men Type: BLOOD SPECIMEN Ordering Facility: [facility] Address: [address] [place], [place] [address] Performed By: #### 5 7021-8 #### [facility] CLIA [id number] [address] [place] [address] 37058 RBC (Bld) [#/Vol] 4.39 10*6/uL Normal 3.90-5.20 [facility] Comment on above: Order Comment: Speci men Type: BLOOD SPECIMEN Ordering Facility: [facility] Address: [address] [place] [address] Performed By: #### 5 7021-8 #### [facility] CLIA [id number] [address] [place] [address] WBC (Bld) [#/Vol] 5.81 10*3/uL Normal 3.70-11.00 [facility] Comment on above: Order Comment: Speci men Type: BLOOD SPECIMEN Ordering Facility: [facility] Address: [address] [place] [address] Performed By: #### 5 7021-8 #### [facility] CLIA [id number] [address] [place], [place] [id number] Abs Immature Gran <0.10 k/uL [facility] Basophils (Bld) [#/Vol] 0.05 10*3/uL <0.11 k/uL [facility] Basophils/100 WBC (Bld) 0.9 % [facility] Differential cell count method Nom (Bld) Auto [facility] Eosinophils (Bld) [#/Vol] <0.46 k/uL [facility] Eosinophils/100 WBC (Bld) 0.0 % [facility] Erythrocyte distribution width (RBC) [Ratio] 12.1 % 11.5 - 15.0 % [facility] Hematocrit (Bld) [Volume fraction] 41.6 % 36.0 - 46.0 % [facility] Hemoglobin (Bld) [Mass/Vol] 14.5 g/dL 11.5 - 15.5 g/dL [facility] Immature Gran % 0.3 % [facility] Lymphocytes (Bld) [#/Vol] 2.09 10*3/uL 1.00 - 4.00 k/uL [facility] Lymphocytes/100 WBC (Bld) 36.0 % [facility] MCH (RBC) [Entitic mass] 33.0 pg 26.0 - 34.0 pg [facility] MCHC (RBC) [Mass/Vol] 34.9 g/dL 30.5 - 36.0 g/dL [facility] MCV (RBC) [Entitic vol] 94.8 fL 80.0 - 100.0 fL [facility] Monocytes (Bld) [#/Vol] 0.44 10*3/uL <0.87 k/uL [facility] Monocytes/100 WBC (Bld) 7.6 % [facility] Neutrophils (Bld) [#/Vol] 3.21 10*3/uL 1.45 - 7.50 k/uL [facility] Neutrophils/100 WBC (Bld) 55.2 % [facility] Nucleated RBC (Bld) [#/Vol] <0.01 k/uL [facility] Nucleated RBC/100 WBC (Bld) [Ratio] 0.0 /100 WBC [facility] Platelet mean volume (Bld) [Entitic vol] 8.6 fL Low 9.0 - 12.7 fL [facility] Platelets (Bld) [#/Vol] 311 10*3/uL 150 - 400 k/uL [facility] RBC (Bld) [#/Vol] 4.39 10*6/uL 3.90 - 5.2 0 m/uL [facility] WBC (Bld) [#/Vol] 5.81 10*3/uL 3.70 - 11. 00 k/uL [facility] CNOVSPon 07-29-2022 CNOVSP Visit (SP) Office ([place]) MIKEY MONTEZ ([id number]) 1965 F Date Time Provider Department 07/29/22 11:00 AM RICCI GARCIA During your visit today, we recorded the following information about you: Temperature Pulse Respiration Blood pressure 97.1 degrees 83/minute 16/minute 152/89 Weight Height 123 kg 1.651 m Ricci Garcia MD 07/30/2022 12:33 PM Signed NAME: Mikey Montez CLINIC NO.: [id number] DATE OF SERVICE: July 29, 2022 Referring Provider: Scotty Ruiz Consultation requested by Dr. Ruiz for an opinion regarding . Mikey Montez, and my final recommendations will [...] COLONSCOPY SCR (more content not included)... Normal [facility] Comprehensive metabolic 2000 panelon 07-29-2022 Albumin [Mass/Vol] 4.4 g/dL Normal 3.9-4.9 [facility] Comment on above: Order Comment: Speci men Type: BLOOD SPECIMEN Ordering Facility: [facility] Address: [address] [place], [place] [address] Performed By: #### 2 4323-8 #### [facility] CLIA [id number] [address] [place] [address] [place] ALP [Catalytic activity/Vol] 166 U/L High 34-123 [facility] Comment on above: Order Comment: Speci men Type: BLOOD SPECIMEN Ordering Facility: [facility] Address: [address] [place], [place] [address] Performed By: #### 2 4323-8 #### [facility] CLIA [id number] [address] [place] [address] [place] ALT [Catalytic activity/Vol] 18 U/L Normal 7-38 [facility] Comment on above: Order Comment: Speci men Type: BLOOD SPECIMEN Ordering Facility: [facility] Address: [address] [place], [place] [address] Performed By: #### 2 4323-8 #### [facility] CLIA [id number] [address] [place] [address] [place] Anion gap [Moles/Vol] 11 mmol/L Normal 9-18 [facility] Comment on above: Order Comment: Speci men Type: BLOOD SPECIMEN Ordering Facility: [facility] Address: [address] [place] [phone] Performed By: #### 2 4323-8 #### [facility] CLIA [id number] [address] [place] [address] [place] AST [Catalytic activity/Vol] 21 U/L Normal 13-35 [facility] Comment on above: Order Comment: Speci men Type: BLOOD SPECIMEN Ordering Facility: [facility] Address: [address] [place], [place] [address] Performed By: #### 2 4323-8 #### [facility] CLIA [id number] [address] [place] [address] [place] Bilirubin [Mass/Vol] 0.4 mg/dL Normal 0.2-1.3 [facility] Comment on above: Order Comment: Speci men Type: BLOOD SPECIMEN Ordering Facility: [facility] Address: [address] [place] [address] Performed By: #### 2 4323-8 #### [facility] CLIA [id number] [address] [place] [address] [place] Calcium [Mass/Vol] 9.5 mg/dL Normal 8.5-10.2 [facility] Comment on above: Order Comment: Speci men Type: BLOOD SPECIMEN Ordering Facility: [facility] Address: [address] [place] [address] Performed By: #### 2 4323-8 #### [facility] CLIA [id number] [address] [place] [address] [place] Chloride [Moles/Vol] 98 mmol/L Normal 97-105 [facility] Comment on above: Order Comment: Speci men Type: BLOOD SPECIMEN Ordering Facility: [facility] Address: [address] [place] [address] Performed By: #### 2 4323-8 #### [facility] CLIA [id number] [address] [place], [place] [address] [place] CO2 [Moles/Vol] 25 mmol/L Normal 22-30 [facility] Comment on above: Order Comment: Speci men Type: BLOOD SPECIMEN Ordering Facility: [facility] Address: [address] [place] [address] Performed By: #### 2 4323-8 #### [facility] CLIA [id number] [address] [place], [place] [address] [place] Creatinine [Mass/Vol] 0.66 mg/dL Normal 0.58-0.96 [facility] Comment on above: Order Comment: Jesus bundy Type: BLOOD SPECIMEN Ordering Facility: [facility] Address: [address] [place], [place] [address] Performed By: #### 2 4323-8 #### [facility] CLIA [id number] [address] [place] [address] OF [facility] ESTIMATED GLOMERULAR FILTRATION RATE 104 mL/min/1.73m??? Normal >=60 [facility] Comment on above: Order Comment: Jesus bundy Type: BLOOD SPECIMEN Ordering Facility: [facility] Address: [address] [place], [place] [address] Result Comment: Domonique mated Glomerular Filtration Rate [...] GFR. Performed By: #### 2 4323-8 #### [facility] CLIA [id number] [address] [place] [address] [place] Glucose [Mass/Vol] 91 mg/dL Normal 74-99 [facility] Comment on above: Order Comment: Jesus bundy Type: BLOOD SPECIMEN Ordering Facility: [facility] Address: [address] [place], [place] [address] Result Comment: The [place] [employer] Association (ADA) provides guidance for cutoff [...] Standards of Medical Care in Diabetes 2016, [place] [employer]. Diabetes Care. 2016.39(Suppl 1). Performed By: #### 2 4323-8 #### [facility] CLIA [id number] [address] [place] [address] [place] Potassium [Moles/Vol] 4.8 mmol/L Normal 3.7-5.1 [facility] Comment on above: Order Comment: Speci men Type: BLOOD SPECIMEN Ordering Facility: [facility] Address: [address] [place] [address] Performed By: #### 2 4323-8 #### [facility] CLIA [id number] [address] [place] [address] [place] Protein [Mass/Vol] 7.3 g/dL Normal 6.3-8.0 [facility] Comment on above: Order Comment: Speci men Type: BLOOD SPECIMEN Ordering Facility: [facility] Address: [address] [place] [address] Performed By: #### 2 4323-8 #### [facility] CLIA [id number] [address] [place] [address] [place] Sodium [Moles/Vol] 134 mmol/L Low 136-144 [facility] Comment on above: Order Comment: Speci men Type: BLOOD SPECIMEN Ordering Facility: [facility] Address: [address] [place] [address] Performed By: #### 2 4323-8 #### [facility] CLIA [id number] [address] [place] [address] [place] Urea nitrogen [Mass/Vol] 8 mg/dL Normal 7-21 [facility] Comment on above: Order Comment: Speci men Type: BLOOD SPECIMEN Ordering Facility: [facility] Address: [address] [place] [address] Performed By: #### 2 4323-8 #### [facility] CLIA [id number] [address] [place] [address] [place] Ferritin SerPl-mCncon 2021 Ferritin [Mass/Vol] 176.0 ng/mL Normal 14.7-205.1 [facility] Comment on above: Order Comment: Speci men Type: BLOOD SPECIMEN Ordering Facility: [facility] Address: [address] [place] [address] Performed By: #### 2 276-4, 68442-8 #### [facility] CLIA [id number] [address] [place] [address] OF [place] HFE (HEMOCHROMATOSIS)on 07-10 INTERPRETATION (HEMDNA) Normal [facility] Comment on above: Order Comment: Speci niharika Type: BLOOD SPECIMEN Ordering Facility: [facility] Address: [address] [place] [address] Result Comment: HFE (Hemochromatosis) Laboratory Accession Number: [id number] Result: C282Y: LOLA H63D: WT S65C: WT Interpretation: 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 Disclaimer: This test was developed and its performance characteristics determined by [facility]'s [facility] It has not been cleared or approved by the FDA. [facility] is regulated under CLIA as certified to perform high- complexity testing. This test is used for clinical purposes. It should not be regarded as investigational or for research. Testing and interpretation performed at [facility], [address] [place] [address]. CLIA Number: [id number] As reviewed by Joshua Mendoza, PhD, [facility] Performed By: #### H ROSALIE #### [facility] CLIA [id number] [address] [place] [address] [place] Iron and Iron binding capaci ty panelon 07-29-2022 Iron [Mass/Vol] 149 ug/dL Normal 41-186 [facility] Comment on above: Order Comment: Speci men Type: BLOOD SPECIMEN Ordering Facility: [facility] Address: [address] [place] [address] Performed By: #### 2 276-4, 31045-1 #### [facility] CLIA [id number] [address] [place] [address] [place] Iron binding capacity [Mass/Vol] 273 ug/dL Normal 232-386 [facility] Comment on above: Order Comment: Speci men Type: BLOOD SPECIMEN Ordering Facility: [facility] Address: [address] [place] [address] Performed By: #### 2 276-4, 41333-1 #### [facility] CLIA [id number] [address] [place] [address] [place] Iron/TIBC [Molar ratio] 54.6 % Normal 15.0-57.0 [facility] Comment on above: Order Comment: Speci men Type: BLOOD SPECIMEN Ordering Facility: [facility] Address: [address] [place] [phone] Performed By: #### 2 276-4, 21027-2 #### [facility] CLIA [id number] [address] [place] [address] [place] UA RANDOM W/MICROSCOPICon BACTERIA NONE SEEN Normal NONE SEEN [facility] Comment on above: Performed By: #### F T4, VITAD, FETIBC, FERR #### [facility] [address] [place] [address] Dr. Cecilio Gale Bilirubin Ql (U) Negative Normal NEGATIVE [facility] Comment on above: Performed By: #### F T4, VITAD, FETIBC, FERR #### [facility] [address] [place] [address] Dr. Cecilio Gale CAST NONE SEEN Normal NONE SEEN [facility] Comment on above: Performed By: #### F T4, VITAD, FETIBC, FERR #### [facility] [address] [place] [address] Dr. Cecilio Gale Clarity (U) CLEAR Normal CLEAR [facility] Comment on above: Performed By: #### F T4, VITAD, FETIBC, FERR #### [facility] [address] [place] [address] Dr. Cecilio Gale Color (U) LT. YELLOW Normal YELLOW [facility] Comment on above: Performed By: #### F T4, VITAD, FETIBC, FERR #### [facility] [address] [address] [address] Cecilio Gale Crystals LM Nom (Urine sed) NONE SEEN Normal NONE SEEN [facility] Comment on above: Performed By: #### F T4, VITAD, FETIBC, FERR #### [facility] [address] [place] [address] Dr. Cecilio Gale Epithelial cells LM Ql (Urine sed) FEW Abnormal NONE SEEN /RARE [facility] Comment on above: Performed By: #### F T4, VITAD, FETIBC, FERR #### [facility] [address] [address] [address] Cecilio Gale Glucose Ql (U) Negative Normal NEGATIVE [facility] Comment on above: Performed By: #### F T4, VITAD, FETIBC, FERR #### [facility] [address] [place] [address] Dr. Cecilio Gale Hemoglobin Ql (U) Negative Normal NEGATIVE [facility] Comment on above: Performed By: #### F T4, VITAD, FETIBC, FERR #### [facility] [address] [place] [address] Dr. Cecilio Gale Ketones Ql (U) Negative Normal NEGATIVE [facility] Comment on above: Performed By: #### F T4, VITAD, FETIBC, FERR #### [facility] [address] [place] [address] Dr. Cecilio Gale LEUKOCYTES Negative Normal NEGATIVE [facility] Comment on above: Performed By: #### F T4, VITAD, FETIBC, FERR #### [facility] [address] [place] [address] Dr. Cecilio Gale MUCOUS NONE SEEN Normal NONE SEEN [facility] Comment on above: Performed By: #### F T4, VITAD, FETIBC, FERR #### [facility] [address] [place] [address] Dr. Cecilio Gale Nitrite Ql (U) Negative Normal NEGATIVE [facility] Comment on above: Performed By: #### F T4, VITAD, FETIBC, FERR #### [facility] [address] [place] [address] Dr. Cecilio Gale pH (U) 7.0 [pH] Normal 5-9 [facility] Comment on above: Performed By: #### F T4, VITAD, FETIBC, FERR #### [facility] [address] [place] [address] Dr. Cecilio Gale RBC NONE SEEN Abnormal 0-2 [facility] Comment on above: Performed By: #### F T4, VITAD, FETIBC, FERR #### [facility] [address] [place] [address] Dr. Cecilio Gale SPEC GRAVITY 1.010 Normal 1.005-<=1.025 [facility] Comment on above: Performed By: #### F T4, VITAD, FETIBC, FERR #### [facility] [address] [place] [address] Dr. Cecilio Gale UA PROTEIN Negative Normal NEGATIVE/ TRACE [facility] Comment on above: Performed By: #### F T4, VITAD, FETIBC, FERR #### [facility] [address] [place] [address] Dr. Cecilio Gale Urobilinogen Qn (U) 0.2 {Anita'U}/dL Normal 0.2 - 1. 0 [facility] Comment on above: Performed By: #### F T4, VITAD, FETIBC, FERR #### [facility] [address] [place] [address] Dr. Cecilio Gale WBC NONE SEEN Normal NONE SEEN [facility] Comment on above: Performed By: #### F T4, VITAD, FETIBC, FERR #### [facility] [address] [place] [address] Dr. Cecilio Gale Physician Referralon 022 Physician Referral [id number] Normal [facility] ALKP ISOENZYMESon 07-10-2022 ALP [Catalytic activity/Vol] 159 U/L Critically high 44-121 [facility] Comment on above: Performed By: #### A LKPISO #### [facility] [address] [place] [address] Dr. Cecilio Gale Bone Fraction: 36 % Normal 14-68 [facility] Comment on above: Performed By: #### A LKPISO #### [facility] [address] [place] [address] Dr. Cecilio Gale Intestinal Frac.: 4 % Normal 0-18 [facility] Comment on above: Performed By: #### A LKPISO #### [facility] [address] [place] [address] Dr. Cecilio Gale Liver Fraction: 60 % Normal 18-85 [facility] Comment on above: Performed By: #### A LKPISO #### [facility] [address] [address] [address] Cecilio Gale VIT D 25-OH LABCORPon 2021 Vitamin D, 25-Hydroxy 50.4 ng/mL Normal 30.0-100.0 [facility] Comment on above: Result Comment: Millie min D deficiency has been defined by the [employer] and an Endocrine Society practice guideline as a level of serum 25-OH vitamin D less than 20 ng/mL (1,2). The Endocrine Society went on to further define vitamin D insufficiency as a level between 21 and 29 ng/mL (2). 1. IOM ([employer] of [employer]). 2010. Dietary reference intakes for calcium and D. [place]: The National Academies Press. 2. Sujatha MF, Vaishali HOLLIDAY, Larisa AZAR, et al. Evaluation, treatment, and prevention of vitamin D deficiency: an Endocrine Society clinical practice guideline. JCEM. 2010; 96(7):1911-30. Performed By: #### F T4, VITAD, FETIBC, FERR #### [facility] [address] [address] [address] Cecilio Gale CBC AUTO DIFFon 07-08-2022 BASO # 0.0 103/ul Normal 0.0-0.1 [facility] Comment on above: Performed By: #### C BC #### [facility] [address] [address] [address] Cecilio Gale Basophils/100 WBC (Bld) 0.6 % Normal 0.2-2.0 [facility] Comment on above: Performed By: #### C BC #### [facility] [address] [address] [address] Cecilio Gale EO # 0.0 103/ul Normal 0.0-0.7 [facility] Comment on above: Performed By: #### C BC #### [facility] [address] [address] [address] Cecilio Gale Eosinophils/100 WBC (Bld) 0.0 % Critically low 0.9-7.0 [facility] Comment on above: Performed By: #### C BC #### [facility] [address] [address] [address] Cecilio Gale Erythrocyte distribution width (RBC) [Ratio] 11.8 % Normal 11.0-15.0 [facility] Comment on above: Performed By: #### C BC #### [facility] [address] [place] [address] Dr. Cecilio Gale Hematocrit (Bld) [Volume fraction] 40.2 % Normal 36.0-48.0 [facility] Comment on above: Performed By: #### C BC #### [facility] [address] [place] [address] Dr. Cecilio Gael Hemoglobin (Bld) [Mass/Vol] 14.5 g/dL Normal 12.0-16.0 [facility] Comment on above: Performed By: #### C BC #### [facility] [address] [place] [address] Dr. Cecilio Gale IG # 0.01 10e3/ul Normal 0.00-0.03 [facility] Comment on above: Performed By: #### C BC #### [facility] [address] [place] [address] Dr. Cecilio Gale IG % 0.2 % Normal 0.0-0.5 [facility] Comment on above: Performed By: #### C BC #### [facility] [address] [place] [address] Dr. Cecilio Gale LYMPH # 2.1 103/ul Normal 1.2-3.8 [facility] Comment on above: Performed By: #### C BC #### [facility] [address] [place] [address] Dr. Cecilio Gale Lymphocytes/100 WBC (Bld) 45.9 % Normal 20.5-60.0 [facility] Comment on above: Performed By: #### C BC #### [facility] [address] [place] [address] Dr. Cecilio Gale MANUAL DIFF REQ NO Normal [facility] Comment on above: Performed By: #### C BC #### [facility] [address] [place] [address] Dr. Cecilio Gale MCH (RBC) [Entitic mass] 33.0 pg Normal 26.7-34.0 [facility] Comment on above: Performed By: #### C BC #### [facility] [address] [place] [address] Dr. Cecilio Gale MCHC (RBC) [Mass/Vol] 36.1 g/dL Critically high 29.9-35.2 [facility] Comment on above: Performed By: #### C BC #### [facility] [address] [place] [address] Dr. Cecilio Gale MCV (RBC) [Entitic vol] 91.6 fL Normal 81.0-99.0 [facility] Comment on above: Performed By: #### C BC #### [facility] [address] [place] [address] Dr. Cecilio Gale MONO # 0.4 103/ul Normal 0.3-0.8 [facility] Comment on above: Performed By: #### C BC #### [facility] [address] [place] [address] Dr. Cecilio Gale Monocytes/100 WBC (Bld) 8.9 % Normal 1.7-12.0 [facility] Comment on above: Performed By: #### C BC #### [facility] [address] [place] [address] Dr. Cecilio Gale NEUT # 2.1 103/ul Normal 1.4-6.5 [facility] Comment on above: Performed By: #### C BC #### [facility] [address] [place] [address] Dr. Cecilio Gale Neutrophils/100 WBC (Bld) 44.4 % Normal 43.0-75.0 [facility] Comment on above: Performed By: #### C BC #### [facility] [address] [place] [address] Dr. Cecilio Gale Platelet mean volume (Bld) [Entitic vol] 8.4 fL Critically low 9.5-13.5 [facility] Comment on above: Performed By: #### C BC #### [facility] [address] [address] [address] Cecilio Gale PLT 349 103/ul Normal 150-450 [facility] Comment on above: Performed By: #### C BC #### [facility] [address] [place] [address] Dr. Cecilio Gale RBC 4.39 106/ul Normal 4.20-5.40 [facility] Comment on above: Performed By: #### C BC #### [facility] [address] [place] [address] Dr. Cecilio Gale WBC 4.6 103/ul Normal 4.0-11.0 [facility] Comment on above: Performed By: #### C BC #### [facility] [address] [place] [address] Dr. Cecilio Gale CULTURE URINEon 07-08-2022 CULTURE URINE Culture Observations: MODERATE GROWTH OF MIXED GENITAL CAMERON. NO POTENTIAL PATHOGENS SEEN. Normal [facility] Comment on above: Performed By: #### F T4, VITAD, FETIBC, FERR #### [facility] [address] [place] [address] Dr. Cecilio Gale FERRITINon 07-08-2022 Ferritin [Mass/Vol] 182.0 ng/mL Normal 8.0-252.0 [facility] Comment on above: Performed By: #### F T4, VITAD, FETIBC, FERR #### [facility] [address] [place] [address] Dr. Cecilio Gale FREE T3on 07-08-2022 FREE T3 2.02 pg/mlL Critically low 2.18-3.98 [facility] Comment on above: Performed By: #### F T4, VITAD, FETIBC, FERR #### [facility] [address] [place] [address] Dr. Cecilio Gale FREE T4on 07-08-2022 Free T4 [Mass/Vol] 0.98 ng/dL Normal 0.76-1.46 [facility] Comment on above: Performed By: #### F T4, VITAD, FETIBC, FERR #### [facility] [address] [address] [address] Cecilio Gale GLYCOHEMOGLOBIN A1Con 2021 ADA RECOMMENDATION SEE BELOW Normal [facility] Comment on above: Result Comment: ADA RECOMMENDED LIMIT 4.0 - 6.0 ADA THERAPEUTIC TARGET < 7.0 ACTION SUGGESTED > 7.0 Performed By: #### A 1C #### [facility] [address] [place] [address] Dr. Cecilio Gale Glucose [Mass/Vol] 105 mg/dL Normal [facility] Comment on above: Performed By: #### A 1C #### [facility] [address] [place] [address] Dr. Cecilio Gale HbA1c (Bld) [Mass fraction] 5.3 % Normal 4.5-6.2 [facility] Comment on above: Performed By: #### A 1C #### [facility] [address] [place] [address] Dr. Cecilio Gale IRON AND TIBCon 07-08-2022 % SATURATION 79.9 % Normal [facility] Comment on above: Performed By: #### F T4, VITAD, FETIBC, FERR #### [facility] [address] [address] [address] Cecilio Gale Iron [Mass/Vol] 219.0 ug/dL Critically high 50.0-170.0 [facility] Comment on above: Performed By: #### F T4, VITAD, FETIBC, FERR #### [facility] [address] [place] [address] Dr. Cecilio Gale TIBC DIRECT 274.0 ug/dL Normal 250.0-450.0 [facility] Comment on above: Performed By: #### F T4, VITAD, FETIBC, FERR #### [facility] [address] [place] [address] Dr. Cecilio Gale LIPID PROFILEon 07-08-2022 CHOL-HDL RATIO NORM SEE BELOW Normal [facility] Comment on above: Result Comment: 3.3 - 4.4 LOW RISK 4.4 - 7.1 AVERAGE RISK 7.1 - 11.0 MODERATE RISK >11.0 HIGH RISK Performed By: #### F T4, VITAD, FETIBC, FERR #### [facility] [address] [address] [address] Cecilio Gale Cholesterol [Mass/Vol] 215 mg/dL Critically high <=200 [facility] Comment on above: Performed By: #### F T4, VITAD, FETIBC, FERR #### [facility] [address] [address] [address] Cecilio Gale Cholesterol in HDL [Mass/Vol] 98 mg/dL Critically high 40-60 [facility] Comment on above: Performed By: #### F T4, VITAD, FETIBC, FERR #### [facility] [address] [address] [address] Cecilio Gale Cholesterol in LDL [Mass/Vol] 105.4 mg/dL Normal [facility] Comment on above: Performed By: #### F T4, VITAD, FETIBC, FERR #### [facility] [address] [address] [address] Cecilio Gale Cholesterol.total/Cho lesterol in HDL [Mass ratio] 2.2 {ratio} Normal [facility] Comment on above: Performed By: #### F T4, VITAD, FETIBC, FERR #### [facility] [address] [address] [address] Cecilio Gale HDL NORMAL > or = 60 mg/dl - LOW CARDIOVASCULAR RISK <40 mg/dl - HIGH CARDIOVASCULAR RISK Normal [facility] Comment on above: Performed By: #### F T4, VITAD, FETIBC, FERR #### [facility] [address] [place] [address] Dr. Cecilio Gale LDL CALC NORMAL SEE BELOW Normal [facility] Comment on above: Result Comment: <100 mg/dl OPTIMAL 100 - 129 mg/dl NEAR OR ABOVE OPTIMAL 130 - 159 mg/dl BORDERLINE HIGH 160 - 189 mg/dl HIGH >190 mg/dl VERY HIGH Performed By: #### F T4, VITAD, FETIBC, FERR #### [facility] [address] [address] [address] Cecilio Gale Triglyceride [Mass/Vol] 58 mg/dL Normal <=150 [facility] Comment on above: Performed By: #### F T4, VITAD, FETIBC, FERR #### [facility] [address] [place] [address] Dr. Cecilio Gale VLDL CALC 11.6 mg/dL Normal [facility] Comment on above: Performed By: #### F T4, VITAD, FETIBC, FERR #### [facility] [address] [place] [address] Dr. Cecilio Gale PROF 14(COMP METB)on 022 Albumin [Mass/Vol] 4.0 g/dL Normal 3.4-5.0 [facility] Comment on above: Performed By: #### F T4, VITAD, FETIBC, FERR #### [facility] [address] [place] [address] Dr. Cecilio Gale Albumin/Globulin [Mass ratio] 1.0 {ratio} Normal [facility] Comment on above: Performed By: #### F T4, VITAD, FETIBC, FERR #### [facility] [address] [place] [address] Dr. Cecilio Gale ALP [Catalytic activity/Vol] 160 U/L Critically high 46-116 [facility] Comment on above: Performed By: #### F T4, VITAD, FETIBC, FERR #### [facility] [address] [place] [address] Dr. Cecilio Gale ALT [Catalytic activity/Vol] 26 U/L Normal 14-59 [facility] Comment on above: Performed By: #### F T4, VITAD, FETIBC, FERR #### [facility] [address] [place] [address] Dr. Cecilio Gale Anion gap [Moles/Vol] 14.1 mmol/L Normal [facility] Comment on above: Performed By: #### F T4, VITAD, FETIBC, FERR #### [facility] [address] [place] [address] Dr. Cecilio Gale AST [Catalytic activity/Vol] 19 U/L Normal 15-37 [facility] Comment on above: Performed By: #### F T4, VITAD, FETIBC, FERR #### [facility] [address] [address] [address] Cecilio Gale Bilirubin [Mass/Vol] 0.5 mg/dL Normal 0.2-1.0 [facility] Comment on above: Performed By: #### F T4, VITAD, FETIBC, FERR #### [facility] [address] [place] [address] Dr. Cecilio Gale Calcium [Mass/Vol] 8.9 mg/dL Normal 8.5-10.1 [facility] Comment on above: Performed By: #### F T4, VITAD, FETIBC, FERR #### [facility] [address] [place] [address] Dr. Cecilio Gale Chloride [Moles/Vol] 93 mmol/L Critically low 98-107 [facility] Comment on above: Performed By: #### F T4, VITAD, FETIBC, FERR #### [facility] [address] [place] [address] Dr. Cecilio Gale CO2 [Moles/Vol] 25.9 mmol/L Normal 21.0-32.0 [facility] Comment on above: Performed By: #### F T4, VITAD, FETIBC, FERR #### [facility] [address] [place] [address] Dr. Cecilio Gale Creatinine [Mass/Vol] 0.68 mg/dL Normal 0.55-1.02 [facility] Comment on above: Performed By: #### F T4, VITAD, FETIBC, FERR #### [facility] [address] [place] [address] Dr. Cecilio Gale EGFR-AF BURKINAN >60 Normal >=60 [facility] Comment on above: Performed By: #### F T4, VITAD, FETIBC, FERR #### [facility] [address] [place] [address] Dr. Cecilio Gale EGFR-NON AF BURKINAN >60 Normal >=60 [facility] Comment on above: Performed By: #### F T4, VITAD, FETIBC, FERR #### [facility] [address] [place] [address] Dr. Cecilio Gale Globulin (S) [Mass/Vol] 3.9 g/dL Normal [facility] Comment on above: Performed By: #### F T4, VITAD, FETIBC, FERR #### [facility] [address] [place] [address] Dr. Cecilio Gale Glucose [Mass/Vol] 108 mg/dL Critically high 74-106 [facility] Comment on above: Performed By: #### F T4, VITAD, FETIBC, FERR #### [facility] [address] [place] [address] Dr. Cecilio Gale Potassium [Moles/Vol] 4.0 mmol/L Normal 3.5-5.1 [facility] Comment on above: Performed By: #### F T4, VITAD, FETIBC, FERR #### [facility] [address] [place] [address] Dr. Cecilio Gale Protein [Mass/Vol] 7.9 g/dL Normal 6.4-8.2 [facility] Comment on above: Performed By: #### F T4, VITAD, FETIBC, FERR #### [facility] [address] [place] [address] Dr. Cecilio Gale Sodium [Moles/Vol] 129 mmol/L Critically low 136-145 [facility] Comment on above: Performed By: #### F T4, VITAD, FETIBC, FERR #### [facility] [address] [place] [address] Dr. Cecilio Gale Urea nitrogen [Mass/Vol] 6.0 mg/dL Critically low 7.0-18.0 [facility] Comment on above: Performed By: #### F T4, VITAD, FETIBC, FERR #### [facility] [address] [place] [address] Dr. Cecilio Gale Urea nitrogen/Creatinine [Mass ratio] 8.8 mg/mg Normal [facility] Comment on above: Performed By: #### F T4, VITAD, FETIBC, FERR #### [facility] [address] [address] [address] Cecilio Gale TSHon 07-08-2022 TSH 0.963 uIU/mL Normal 0.358-3.740 [facility] Comment on above: Performed By: #### F T4, VITAD, FETIBC, FERR #### [facility] [address] [address] [address] Cecilio Gale UA RANDOMon 07-08-2022 Bilirubin Ql (U) Negative Normal NEGATIVE [facility] Comment on above: Performed By: #### F T4, VITAD, FETIBC, FERR #### [facility] [address] [place] [address] Dr. Cecilio Gale Clarity (U) CLEAR Normal CLEAR [facility] Comment on above: Performed By: #### F T4, VITAD, FETIBC, FERR #### [facility] [address] [place] [address] Dr. Cecilio Gale Color (U) LT. YELLOW Normal YELLOW [facility] Comment on above: Performed By: #### F T4, VITAD, FETIBC, FERR #### [facility] [address] [place] [address] Dr. Cecilio Gale Glucose Ql (U) Negative Normal NEGATIVE [facility] Comment on above: Performed By: #### F T4, VITAD, FETIBC, FERR #### [facility] [address] [place] [address] Dr. Cecilio Gale Hemoglobin Ql (U) TRACE-LYSED Abnormal NEGATIVE [facility] Comment on above: Performed By: #### F T4, VITAD, FETIBC, FERR #### [facility] [address] [place] [address] Dr. Cecilio Gale Ketones Ql (U) Negative Normal NEGATIVE [facility] Comment on above: Performed By: #### F T4, VITAD, FETIBC, FERR #### [facility] [address] [place] [address] Dr. Cecilio Gale LEUKOCYTES Negative Normal NEGATIVE [facility] Comment on above: Performed By: #### F T4, VITAD, FETIBC, FERR #### [facility] [address] [address] [address] Cecilio Gale Nitrite Ql (U) Negative Normal NEGATIVE [facility] Comment on above: Performed By: #### F T4, VITAD, FETIBC, FERR #### [facility] [address] [address] [address] Cecilio Gale pH (U) 7.5 [pH] Normal 5-9 [facility] Comment on above: Performed By: #### F T4, VITAD, FETIBC, FERR #### [facility] [address] [place] [address] Dr. Cecilio Gale SPEC GRAVITY <=1.005 Abnormal 1.005-<=1.025 [facility] Comment on above: Performed By: #### F T4, VITAD, FETIBC, FERR #### [facility] [address] [place] [address] Dr. Cecilio Gale UA PROTEIN Negative Normal NEGATIVE/ TRACE [facility] Comment on above: Performed By: #### F T4, VITAD, FETIBC, FERR #### [facility] [address] [place] [address] Dr. Cecilio Gale Urobilinogen Qn (U) 0.2 {Anita'U}/dL Normal 0.2 - 1. 0 [facility] Comment on above: Performed By: #### F T4, VITAD, FETIBC, FERR #### [facility] [address] [place] [address] Dr. Cecilio Gale Vital Signs Date Time Vital Sign Value Performing Clinician Facility 10-27-2023 11:10-0500 Body height 165.1 cm Scotty Ruiz Other [facility] Other 10-27-2023 11:10-0500 Body mass index (BMI) [Ratio] 36.11 kg/m2 Scotty Ruiz Other [facility] Other 10-27-2023 11:10-0500 Body temperature 98.1 [degF] Scotty Ruiz Other [facility] Other 10-27-2023 11:10-0500 Body weight 98.43 kg Scotty Ruiz Other [facility] Other 10-27-2023 11:10-0500 Diastolic blood pressure 78 mm[Hg] Scotty Ruiz Other [facility] Other 10-27-2023 11:10-0500 Respiratory rate 18 /min Scotty Ruiz Other [facility] Other 10-27-2023 11:10-0500 SaO2% (BldA) [Mass fraction] 97 % Scotty Ruiz Other [facility] Other 10-27-2023 11:10-0500 Systolic blood pressure 120 mm[Hg] Scotty Ruiz Other [facility] Other 07-28-2023 09:50-0400 Body height 165.1 cm Scotty Ruiz Other [facility] Other 07-28-2023 09:50-0400 Body mass index (BMI) [Ratio] 39.1 kg/m2 Scotty Ruiz Other [facility] Other 07-28-2023 09:50-0400 Body weight 106.6 kg Scotty Ruiz Other [facility] Other 07-28-2023 09:50-0400 Diastolic blood pressure 78 mm[Hg] Scotty Ruiz Other [facility] Other 07-28-2023 09:50-0400 Respiratory rate 18 /min Scotty Ruiz Other [facility] Other 07-28-2023 09:50-0400 SaO2% (BldA) [Mass fraction] 98 % Scotty Ruiz Other [facility] Other 07-28-2023 09:50-0400 Systolic blood pressure 124 mm[Hg] Scotty Ruiz Other [facility] Other 06-02-2023 13:00-0400 Body height 165.1 cm Christsether Kev Other [facility] Other 06-02-2023 13:00-0400 Body mass index (BMI) [Ratio] 42.43 kg/m2 Christopher Kev Other [facility] Other 06-02-2023 13:00-0400 Body weight 115.67 kg Christsether Kev Other [facility] Other 06-02-2023 13:00-0400 Diastolic blood pressure 78 mm[Hg] Christopher Kev Other [facility] Other 06-02-2023 13:00-0400 SaO2% (BldA) [Mass fraction] 97 % Christopher Kev Other [facility] Other 06-02-2023 13:00-0400 Systolic blood pressure 119 mm[Hg] Christopher Kev Other [facility] Other 01-21-2023 11:50-0400 Body height 165.1 cm Scotty Ruiz Other [facility] Other 01-21-2023 11:50-0400 Body mass index (BMI) [Ratio] 45.92 kg/m2 Scotty Ruiz Other [facility] Other 01-21-2023 11:50-0400 Body temperature 97.7 [degF] Scotty Ruiz Other [facility] Other 01-21-2023 11:50-0400 Body weight 125.19 kg Scotty Ruiz Other [facility] Other 01-21-2023 11:50-0400 Diastolic blood pressure 86 mm[Hg] Scotty Ruiz Other [facility] Other 01-21-2023 11:50-0400 Respiratory rate 18 /min Scotty Ruiz Other [facility] Other 01-21-2023 11:50-0400 SaO2% (BldA) [Mass fraction] 97 % Scotty Ruiz Other [facility] Other 01-21-2023 11:50-0400 Systolic blood pressure 128 mm[Hg] Scotty Ruiz Other [facility] Other 08-04-2022 15:21-0400 Blood Pressure Location Kerry EPPERSONL [facility] [place] 08-04-2022 15:21-0400 Diastolic blood pressure 80 mm[Hg] Kerry JONES [facility] [place] 08-04-2022 15:21-0400 Heart rate 72 /min Kerry EPPERSONL [facility] [place] 08-04-2022 15:21-0400 Respiratory rate 16 /min Kerry JONES [facility] [place] 08-04-2022 15:21-0400 Systolic blood pressure 118 mm[Hg] Kerry EPPERSONL [facility] [place] 07-29-2022 11:12-0400 Body height 165.1 cm Ricci Garcia MD Work Phone: [facility] 07-29-2022 11:12-0400 Body temperature 97.11 [degF] Ricci Garcia MD Work Phone: [facility] 07-29-2022 11:12-0400 Body weight 122.97 kg Ricci Garcia MD Work Phone: [facility] 07-29-2022 11:12-0400 Diastolic blood pressure 89 mm[Hg] Ricci Garcia MD Work Phone: [facility] 07-29-2022 11:12-0400 Heart rate 83 /min Ricci Garcia MD Work Phone: [facility] 07-29-2022 11:12-0400 Respiratory rate 16 /min Ricci Garcia MD Work Phone: [facility] 07-29-2022 11:12-0400 SaO2% (BldA) [Mass fraction] 98 % Ricci Garcia MD Work Phone: [facility] 07-29-2022 11:12-0400 Systolic blood pressure 152 mm[Hg] Ricci Garcia MD Work Phone: [facility] 07-14-2022 14:20-0400 Body height 165.1 cm Scotty Ruiz Other [facility] Other 07-14-2022 14:20-0400 Body mass index (BMI) [Ratio] 45.26 kg/m2 Scotty Ruiz Other [facility] Other 07-14-2022 14:20-0400 Body temperature 97.6 [degF] Scotty Ruiz Other [facility] Other 07-14-2022 14:20-0400 Body weight 123.38 kg Scotty Ruiz Other [facility] Other 07-14-2022 14:20-0400 Diastolic blood pressure 82 mm[Hg] Scotty Ruiz Other [facility] Other 07-14-2022 14:20-0400 SaO2% (BldA) [Mass fraction] 97 % Scotty Ruiz Other [facility] Other 07-14-2022 14:20-0400 Systolic blood pressure 132 mm[Hg] Scotty Ruiz Other [facility] Other 06-03-2022 14:00-0400 Body height 165.1 cm Christhannah Salinasno Other [facility] Other 06-03-2022 14:00-0400 Body mass index (BMI) [Ratio] 45.26 kg/m2 Christsether Kev Other [facility] Other 06-03-2022 14:00-0400 Body temperature 97.3 [degF] Christopher Kev Other [facility] Other 06-03-2022 14:00-0400 Body weight 123.38 kg Christsether Kev Other [facility] Other 06-03-2022 14:00-0400 Diastolic blood pressure 75 mm[Hg] Christopher Kev Other [facility] Other 06-03-2022 14:00-0400 SaO2% (BldA) [Mass fraction] 10 % Christsether Kev Other [facility] Other 06-03-2022 14:00-0400 Systolic blood pressure 113 mm[Hg] Ashisher Kev Other [facility] Other Encounters Encounter Date Encounter Type Care Provider Facility Start: 04-20-2024 End: 04-20-2024 ambulatory FERMIN ROBLEDO Not Available Start: 12-13-2023 End: 12-13-2023 Phys/qhp telephone evaluation 5-10 min Trevor Wheeler DO Work Phone: [facility] Comment on above: Encounter to discuss test results Start: 11-23-2023 End: 11-23-2023 ambulatory TREVOR WHEELER Not Available Start: 10-27-2023 End: 10-27-2023 ambulatory Scotty Ruiz Other [facility] Other Start: 10-27-2023 Office outpatient vi sit 25 minutes Scotty Ruiz [facility] [place] Start: 08-04-2023 End: 08-04-2023 ambulatory Scotty Ruiz Other [facility] Other Start: 08-04-2023 Telephone encounter Scotty Ruiz [facility] [place] Start: 07-28-2023 End: 07-28-2023 ambulatory Scotty Ruiz Other [facility] Other Start: 07-28-2023 Office outpatient vi sit 25 minutes Scotty Ruiz [facility] [place] Start: 07-22-2023 End: 07-22-2023 ambulatory Scotty Ruiz Other [facility] Other Start: 07-22-2023 Telephone encounter Scotty Ruiz [facility] [place] Start: 06-02-2023 Office outpatient vi sit 10 minutes Rajendra Angulo [facility] Start: 06-02-2023 End: 06-02-2023 ambulatory DO Scotty Ruiz Work Phone: [facility] Other Start: 06-02-2023 End: 06-02-2023 Patient encounter procedure DO Scotty Ruiz Work Phone: [facility] Work Phone: Start: 02-09-2023 End: 02-09-2023 ambulatory Scotty Ruiz Other [facility] Other Start: 02-09-2023 Telephone encounter Scotty Ruiz [facility] [place] Start: 01-21-2023 End: 01-21-2023 ambulatory Scotty Ruiz Other [facility] Other Start: 01-21-2023 Encounter for other preprocedural examination Scotty Ruiz [facility] [place] Start: 01-21-2023 Office outpatient vi sit 25 minutes Scotty Ruiz [facility] [place] Start: 01-11-2023 End: 01-12-[address] SCOTTY RUIZ Facility: Start: 11-30-2022 End: 11-30-2022 ambulatory Scotty Ruiz Other [facility] Other Start: 11-30-2022 Telephone encounter Scotty Ruiz [facility] [place] Start: 10-08-2022 End: 10-09-[address] DOCTOR RANDALL Facility: Start: 09-22-2022 End: 09-23-2022 ambulatory Kerry JONES Facility: [place] Start: 09-22-2022 End: 09-22-2022 Patient encounter procedure Kerry JONES [facility] [place] Start: 09-17-2022 ambulatory Scotty Ruiz Faci lity: [place] Start: 09-09-2022 End: 09-10-2022 ambulatory Kerry JONES Facility:CD:[id number] Start: [facility]: 2022 End: 09-08-[address] KERRY JONES . 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 Start: 08-04-2022 End: 08-04-2022 Patient encounter procedure Kerry JONES [facility] [place] Start: 07-29-2022 End: 07-29-2022 Visit (SP) Office Ricci Garcia MD Work Phone: Hematology/Oncology Comment on above: Family history of he mochromatosis (Primary Dx); Disorder of iron metabolism; Hemochromatosis, unspecified hemochromatosis type Start: 07-28-2022 End: 07-28-2022 ambulatory Mahendra Romo Facility:[facility] Start: 07-28-2022 End: 07-28-2022 Patient encounter procedure DO Scotty Ruiz Work Phone: [facility] Start: 07-21-2022 Telephone encounter Scotty Ruiz [facility] Start: 07-21-2022 End: 07-22-[address] SCOTTY RUIZ [facility] Other Start: 07-14-2022 End: 07-14-2022 ambulatory Scotty Ruiz [facility] Other Start: 07-14-2022 Office outpatient vi sit 25 minutes Scotty Ruiz [facility] [place] Start: 07-08-2022 End: 07-09-[address] SCOTTY RUIZ Facility:[facility] Start: 07-07-2022 Telephone encounter Scotty Ruiz [facility] Start: 07-07-2022 End: 07-09-2022 ambulatory DO INTERIANO [facility] Other Start: 06-03-2022 End: 06-03-2022 ambulatory Rajendra Angulo Other [facility] [employer] Other Start: 06-03-2022 Office outpatient vi sit 10 minutes Rajendra Angulo [facility] Start: 06-03-2022 End: 06-03-2022 Patient encounter procedure DO Scotty Ruiz Work Phone: [facility] Start: 09-01-2021 Telephone encounter Scotty Ruiz [facility] Procedures Date Procedure Procedure Detail Performing Clinician Start: 09-09-2022 Colonoscopy Trevor an DO Work Phone: Start: 09-09-2022 Colonoscopy Kerry MILLER Start: 07-29-2022 Blood count complete auto&auto difrntl wbc Ricci Garcia MD Work Phone: Closed reduction of fracture of ankle Kerry JONES Craniotomy Kerry JONES Ligation of fallopian tube Rebecca pickens MOMO Vaginal hysterectomy Kerry JONES Plan of Treatment Date Care Activity Detail Author Start: 09-09-2032 Screening for malign ant neoplasm of colon [facility] Start: 08-21-2025 DIABETES SCREEN DIABETES SCREEN [facility] Start: 07-29-2025 DIABETES SCREEN [facility]CREEN [facility] Start: 11-28-2024 End: 11-28-2024 Patient encounter procedure 11/28/2024 1:00 PM EST Office Visit [facility] [address] [place] [address] Trevor Wheeler, DO [address] [place] [address] [facility] Start: 07-29-2022 End: 09-28-2022 HFE gene targeted mutation analysis in Blood or Tissue by Molecular genetics method [facility] Work Phone: Comment on above: Expected: 07/29/2022 , Expires: 09/28/2022 Start: 07-09-2022 Influenza vaccination INFLUENZA (#1) [facility] Start: 04-14-2022 COVID-19 VACCINE (5 - Booster for Pfizer series) COVID-19 VACCINE (5 - Booster for Pfizer series) [facility] Start: 11-08-2021 DEPRESSION ASSESSMENT DEPRESSION ASS ESSMENT [facility] Start: 2011 COLOGUARD (FIT-DNA) COLOGUARD (FIT-D NA) [facility] Start: 2011 Colonoscopy COLONOSCOPY [facility] Start: 2011 COLORECTAL CANCER SCREENING COLORECTAL CANCER SCREENING [facility] Start: [address] COLONOGRAPHY [facility] Start: 2011 FECAL OCCULT BLOOD FECAL OCCULT BLOO D [facility] Start: 2011 LIPID SCREEN LIPID SCREEN [facility] Start: 2011 SIGMOIDOSCOPY SIGMOIDOSCOPY [facility] Start: 2006 Mammography MAMMOGRAM [facility] Start: 2006 Screening for malign ant neoplasm of breast Mammogram [facility] Start: 1996 HPV TESTING HPV TESTING [facility] Start: 1996 Screening for malign ant neoplasm of cervix [facility] Start: 1987 PAP TESTING PAP TESTING [facility] Start: 1987 Screening for malign ant neoplasm of cervix Pap Smear [facility] Start: 1985 Urine microalbumin profile DTAP,TDAP,TD (1 - Tdap) [facility] Start: 1984 HEPATITIS C SCREENING HEPATITIS C SC REENING [facility] Start: 1984 HIV SCREENING HIV SCREENING [facility] Start: 1978 Adult depression screening assessment DEPRESSION SCREENING [facility] Start: 1966 HEPATITIS B (1 of 3 - 3-dose series) HEPATITIS B (1 of 3 - 3-dose series) [facility] Start: 1966 Screening for malign ant neoplasm of colon [facility] End: 08-12-2023 CBC W Auto Differential panel - Blood CBC + DIFF Lab Routine 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) Every 3 months for 4 Occurrences starting 08/12/2022 until 08/12/2023 [facility] Work Phone: Comment on above: Every 3 months for 4 Occurrences starting 08/12/2022 until 08/12/2023 End: 08-12-2023 Comprehensive metabolic 2000 panel - Serum or Plasma COMP METABOLIC PANEL Lab Routine 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) Every 3 months for 4 Occurrences starting 08/12/2022 until 08/12/2023 [facility] Work Phone: Comment on above: Every 3 months for 4 Occurrences starting 08/12/2022 until 08/12/2023 End: 08-12-2023 Ferritin [Mass/volume] in Serum or Plasma FERRITIN BLD Lab Routine 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) Every 3 months for 4 Occurrences starting 08/12/2022 until 08/12/2023 [facility] Work Phone: Comment on above: Every 3 months for 4 Occurrences starting 08/12/2022 until 08/12/2023 End: 08-12-2023 Iron and Iron binding capacity panel - Serum or Plasma IRON + TIBC Lab Routine 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) Every 3 months for 4 Occurrences starting 08/12/2022 until 08/12/2023 [facility] Work Phone: Comment on above: Every 3 months for 4 Occurrences starting 08/12/2022 until 08/12/2023 [facility] Immunizations Immunization Date Immunization Notes Care Provider Nai ferris 08-18-2023 COVID-19 Vaccine Moderna - Documentation Purposes Only Scotty Ruiz Other [facility] Other 08-18-2023 Flu Shot - Documentation Purposes Only Scotty Ruiz Other [facility] Other 10-15-2022 influenza, seasonal, injectable Scotty Ruiz Other [facility] Other 02-17-2022 COVID-19 Vaccine Moderna - Documentation Purposes Only Rajendra Angulo Other [facility] Other 10-11-2021 COVID-19 Vaccine Pfizer - Documentation Purposes Only Rajendra Angulo Other [facility] Other 08-05-2021 influenza, seasonal, injectable Scotty Ruiz Other [facility] Other 08-05-2021 influenza, injectable, quadrivalent, preservative free Ricci Garcia MD Work Phone: [facility] 02-07-2021 COVID-19 Vaccine Pfizer - Documentation Purposes Only Scotty Sara Other [facility] Comment on above: Reason for Medicatio n: Prophylaxis 01-17-2021 COVID-19 Vaccine Pfizer - Documentation Purposes Only Scotty Ruiz Other [facility] Comment on above: Reason for Medicatio n: Prophylaxis 10-04-2020 zoster vaccine recombinant Scotty Ruiz Other [facility] 08-05-2020 zoster vaccine recombinant Scotty Ruiz Other [facility] 08-05-2020 influenza, seasonal, injectable Scotty Ruiz Other [facility] Other 08-05-2020 influenza, injectable, quadrivalent, preservative free Ricci Garcia MD Work Phone: [facility] 10-17-2019 influenza, seasonal, injectable Scotty Cardonamono Other [facility] Other 10-17-2019 influenza, injectable, quadrivalent, contains preservative Ricci Garcia MD Work Phone: [facility] 07-23-2018 influenza, injectable, quadrivalent, preservative free Ricci Garcia MD Work Phone: [facility] 07-23-2018 influenza, seasonal, injectable Scotty Ruiz Other [facility] Other NEGATED: Highlighted row has not occurred!08-04-2022 influenza virus vaccine, unspecified formulation Kerry JONES [facility] [place] Payers Date Payer Category Payer Self-pay [id number] 2019 Medicare [id number] 1966 Unknown [id number] 2.16.8 [id number] 1966 Unknown [id number] 2.16.8 40.1.863760.3.579.2.727 1966 Unknown [id number] 2.16.8 40.1.568850.3.579.2.727 1966 Unknown [id number] 2.16.8 40.1.642680.3.579.2.727 1966 Unknown [id number] 2.16.84 0.1.614576.3.579.2.593 1966 Unknown [id number] 2.16.84 0.1.978269.3.579.2.593 1966 Unknown [id number] 2.16.84 0.1.292316.3.579.2.593 1966 Unknown [id number] 2.16.84 0.1.204180.3.579.2.593 1966 Unknown [id number] 2.16.84 0.1.885476.3.579.2.593 1966 Unknown [id number] 2.16.84 0.1.029449.3.579.2.593 1966 Unknown [id number] 2.16.84 0.1.989931.3.579.2.593 1966 Unknown [id number] 2.16.84 0.1.633188.3.579.2.1259 1966 Unknown [id number] 2.16.84 0.1.133094.3.579.2.1259 1959 Medicare [id number] 2.16. [id number] Unknown O [id number] Unknown Regular Insurance [id number] Unknown [employer] [id number] Unknown [id number] 2.16.8 40.1.988952.3.579.2.531 Unknown [id number] 2.16.8 40.1.657537.3.579.2.531 Unknown [id number] 2.16.8 40.1.770746.3.579.2.531 Social History Date Type Detail Facility Unknown if ever smoked [facility] Other Start: 11-02-2023 Sex Assigned At [facility] Other Start: 1965 Sex Assigned At Female [facility] Start: 07-23-2022 End: 11-02-2023 Tobacco smoking status NHIS Never smoked tobacco [facility] History of tobacco use Passive smoker [facility] Start: 07-23-2022 Tobacco use and exposure Smokeless tobacco non-user [facility] Start: 07-29-2022 Alcohol intake Current non-drinker of alcohol (finding) [facility] Start: 1965 Sex Assigned At Not on file [facility] Start: 07-19-2022 End: 08-21-2022 Exposure to SARS-CoV-2 (event) Not sure [facility] Tobacco smoking status Never [facility] [place] Start: 11-23-2023 Alcohol intake Lifetime non-drinker (finding) [facility] Start: 11-02-2023 History of Social function [facility] Start: 11-02-2023 Alcohol Comment caffeine: 2-3 cups per day coffee, soda [facility] Start: 11-16-2023 Gender identity Identifies as female gender (finding) [facility] Start: 11-16-2023 Sexual orientation Heterosexual (finding) [facility] Functional Status Date Assessment Result Facility 08-04-2022 Functional Status N/A [facility] [place] Clinical Notes 09-01-2021 to 12-13-2023 Trevor Liam, DO - 12/13/2023 8:00 AM EST Note Date & Type Note Facility 12-13-2023 History of Presen t illness Narrative Reason for Appointment: Patient ID: Layton Montez is a 58 y.o. female who presents for Results Patient presents today via telephone call for a telehealth appointment. Patients Phone #: [phone] (mobile) Current Medications: has a current medication list which includes the following prescription(s): carbamazepine er, ergocalciferol, folic acid, gabapentin, lacosamide, levothyroxine, omeprazole, oxcarbazepine, and ursodiol. Medical History: Active Ambulatory Problems Diagnosis Date Noted No Active Ambulatory Problems Resolved Ambulatory Problems Diagnosis Date Noted No Resolved Ambulatory Problems Past Medical History: Diagnosis Date Ankle fracture, right Arthritis Foot swelling Fracture of lower leg Fracture of pelvis (CMS/HCC) Headache Hemochromatosis (CMS/HCC) Hypothyroidism (CMS/HCC) Knee problem Leg swelling LORENA (obstructive sleep apnea) Pneumonia Seizure disorder (CMS/HCC) Family History Problem Relation Name Age of Onset Transient ischemic attack Mother Asthma Mother Parkinsonism Father Alzheimer's disease Maternal Grandmother ALS Mother's Brother Social History Tobacco Use Smoking status: Never Smokeless tobacco: Not on file Substance Use Topics Alcohol use: Never Comment: caffeine: 2-3 cups per day coffee, soda Drug use: Not on file Past Surgical History: Procedure Laterality Date FASCIOTOMY Left 08/2015 EPF - heel GASTRIC BYPASS gastric sleeve HYSTERECTOMY 2004 LOBECTOMY FOR SEIZURE FOCUS 1988 brain-seizure disorder OTHER SURGICAL HISTORY 1986 fracture of pelvis / lower leg (multiple RT) OTHER SURGICAL HISTORY varicose veins injected ELENA - years ago TUBAL LIGATION Bilateral 1995 Allergies Allergen Reactions Valproic Acid Depakote Other Reaction(s): Mood Penicillins Rash and Unknown rash Phenobarbital Other and Rash Mood swings Mental changes Vitals: Estimated body mass index is 36.9 kg/m as calculated from the following: Height as of 11/23/23: 5' 4 . Weight as of 11/23/23: 215 lb. BP: No LMP recorded. Assessment/Plan Encounter Diagnosis Name Primary? Encounter to discuss test results All options discussed with patient, pt desires medicinal treatment, vit d and wyatt reviewed, all concerns answered, wt bearing exercise reviewed, repeat dexa scan in 1yr Documented by Trevor Wheeler DO on behalf of: Trevor Wheeler DO documented in this encounter [facility] 10-27-2023 Evaluation note Encounter Date Diagnosis Assessment [...] Oct, Hyperglycemia (ICD-10 - R73.9) Oct, Other fdc (current) drug therapy (ICD-10 - Z79.899) Oct, [...] - E87.1) Her sodium level was 131. [facility] Other 09-20-2023 Evaluation note* Encounter Date Diagnosis [...] HgA1C is normal at 5.4. Jul, Other fdc (current) drug therapy (ICD-10 - Z79.899) Jul, [...] this level has not gone down further. [facility] Other 07-26-2023 Evaluation note* Encounter Date Diagnosis Assessment Notes Treatment Notes Treatment Clinical Notes May, LORENA (obstructive sleep apnea) (ICD-10 - G47.33) [facility] Other 03-16-2023 Evaluation note* Encounter Date Diagnosis [...] was 121. Ferritin was 132.0. Jan, Other fdc (current) drug therapy (ICD-10 - Z79.899) Jan, [...] winded. She is seeing Dr. Collins in [place] in an attempt to have bariatric weight [...] when she had weight loss surgery done. [facility] Other 11-02-2022 NoteOPERATIVE NOTE OPERATION DATE: 09/09/2022 [...] in good condition. CC: Scotty Ruiz D.O.[facility] [id number] NoteHNO ID: [id number] Author: Olesya Rodriguez RN Service: ? Author Type: Registered Nurse Type: Progress Notes Filed: 08/21/2022 4:39 PM Note Text: Pt was checked in for appointment. HGB of 14.3 qualified her for a phlebotomy. However, pt left the building after getting her blood work drawn. PSS called and LVM for pt to reschedule.[facility] 08-21-2022 History of Present illness Narrative* Olesya Rodriguez RN - 08/21/2022 3:24 PM EDT Pt was checked in for appointment. HGB of 14.3 qualified her for a phlebotomy. However, pt left thebuilding after getting her blood work drawn. PSS called and LVM for pt to reschedule. [facility] Instructions* Patient Instructions* Ricci Garcia MD - 08/12/2022 8:43 PM EDT Arrange for phlebotomy 1 unit for Hgb > 13 next week Labs in 3 months RTC 1 week after labs and schedule for possible phlebotomy after clinician. [facility] NoteHNO ID: [id number] Author: Ricci Garcia MD Service: ? Author Type: Physician Type: Progress Notes Filed: 08/12/2022 8:45 PM Note Text: NAME: Mikey Montez [facility] NO.: [id number] DATE OF SERVICE: August 12, 2022 Some [...] 1989 brain surgery TOTAL ABDOM HYSTERECTOMY 2003 FAMILY [...] 07/29/2022 0.4 AST (U/L (more content not included)...[place] [address]-05-2022 History of Present illness Narrative* Ricci Garcia MD - 08/12/2022 5:17 PM EDT Images from the original note were not included. NAME: Mikey Montez CLINIC NO.: [id number] DATE OF SERVICE: August 12, 2022 Some [...] CPE Hematology and Oncology Services Provided at: [place], [place] CC: Scotty Ruiz [address] [place] [address] Scotty Ruiz, DO [address] [place] [address] [facility] NoteChief Complaint consultation for screening colonoscopy [facility] Staff 56 year old female presents on [...] 50,000 intl units (1.25 mg) oral capsule, [id number] International_Unit= 1 cap(s), Oral, qWeek Allergies Depakote [...] SARS-CoV-2 (COVID-19) mRNA BNT-162b2 vax 01/17/2021 Given ProphylaxisOhio [facility] Harding HospitalComment on above:Result Comment: Electronically Signed By: MOMO CHAND, Kerry Barfield\Date and Time Signed: 08/04/22 15:39 [id number] Note HNO ID: [id number] Author: Ricci Garcia MD Service: ? Author Type: Physician Type: Progress Notes Filed: 07/30/2022 12:33 PM Note Text: NAME: Mikey Montez CLINIC NO.: [id number] DATE OF SERVICE: July 29, 2022 Referring [...] FAMILY HISTORY Problem Relation (more content not included)...[facility] 07-29-2022 Instructions* Patient Instructions* Ricci Garcia MD - 07/29/2022 11:49 AM EDT HFE and iron labs today Call results in 2 weeks. [facility] History of Present illness Narrative* Ricci Garcia MD - 07/29/2022 11:00 AM EDT Images from the original note were not included. NAME: Mikey Montez [facility] NO.: [id number] DATE OF SERVICE: July 29, 2022 Referring [...] which included preparing to see the patient, [id number] patient care, completing clinical documentation, obtaining and/or reviewing separately obtained history, performing a medically appropriate examination, counseling and educating the pat ient/family/caregiver, ordering medications, tests, or procedures, and independently interpreting results (not separately reported). Ricci Garcia MD, CPE Hematology and Oncology Services Provided at: [place], [place] CC: Scotty Ruiz [address] [place] [id number] Scotty Ruiz DO [address] [place] [phone] documented in this [facility] Evaluation note* Encounter Date Diagnosis Assessment Notes Treatment Notes Treatment Clinical Notes Jul, Hypothyroidism (ICD-10 - E03.9) Discussed thyroid results with patient today. TSH is 0.963. Free T3 is 2.02. Free T4 is 0.98. Continue with the same dose of Levothyroxine. Jul, Hematuria (ICD-10 - R31.9) We discussed that her urinalysis from Nov (2021) and this time did show a trace [...] her Vitamin D supplement. 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 A referral is provided. [facility] Other 07-27-2022 Evaluation note* Encounter Date Diagnosis Assessment Notes Treatment Notes Treatment Clinical Notes May, LORENA (obstructive sleep apnea) (ICD-10 - G47.33) [facility] Other 10-25-2021 Evaluation note* Encounter Date Diagnosis Assessment Notes Treatment Notes Treatment Clinical Notes Aug, Hypothyroidism (ICD-10 - E03.9) [facility] Other Evaluation + Plan note No data available for this section General Surgery Landy Evaluation noteNo InformationNort Adonit Other Evaluation noteNo assessment information available 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 Other disorders of iron metabolism Family history of hemochromatosis Family history of other endocrine and metabolic diseases documented [facility]* Diagnosis Hereditary hemochromatosis (HCC)- Primary Hereditary hemochromatosis [facility]* Diagnosis Encounter to discuss test results Other specified counseling documented in this encounter [facility] HealthcareHistory general Narrative - Reported* Type Description Date Medical History Epilepsy-1977; Follow's with Dr. Natalio Weaver Medical History History of [place] Medical History Hemochromotosis Medical History jabari Montes's patient's pap's and pelvics Medical History Patient states that she get's her Medical Equipment from [employer] Medical History LORENA (obstructive sleep apnea) Medical History Refuses Colonoscopy 02-08-17 Surgical History Brain Surgery 1988 Surgical History Tubal Ligation 1991 Surgical History Hysterectomy 2003 Hospitalization History Brain Surgery 1988 Hospitalization History Tubal Ligation 1991 Hospitalization History Hysterectomy 2003 [facility] Other [facility] general Narrative - Reported* Type Description Date Medical History Epilepsy; Follow's with Dr. Natalio Weaver Medical History History of [place] Medical History Hemochromotosis Medical History jabari Montes's patient's pap's and pelvics Medical History Patient states that she get's her Medical Equipment from [employer] Medical History LORENA (obstructive sleep apnea) Medical History Refuses Colonoscopy 02-08-17 Medical History gallstones Surgical History Brain Surgery 1988 Surgical History Tubal Ligation 1991 Surgical History Hysterectomy 2003 Surgical History Colonoscopy - Dr. Jones / alejandra d polyp 09/25/22 Hospitalization History Brain Surgery 1988 Hospitalization History Tubal Ligation 1991 Hospitalization History Hysterectomy 2003 [facility] Other [facility] general Narrative - Reported* Type Description Date Medical History Epilepsy; Follow's with Dr. Natalio Weaver Medical History History of [place] Medical History Hemochromotosis Medical History jabari Montes's patient's pap's and pelvics Medical History Patient states that she get's her Medical Equipment from [employer] Medical History LORENA (obstructive sleep apnea) Medical History Refuses Colonoscopy 02-08-17 Medical History gallstones Surgical History Brain Surgery 1988 Surgical History Tubal Ligation 1991 Surgical History Hysterectomy 2003 Surgical History Colonoscopy - Dr. Barrera ll / sigmoid polyp / needs repeat in 202409/09/22 Surgical History bariatric surgery 06/22/23 Hospitalization History Brain Surgery 1988 Hospitalization History Tubal Ligation 1991 Hospitalization History Hysterectomy 2003 [facility] Other Hospital Discharge instructions No data available for this section General Surgery [employer] Progress note No data available for this section General Surgery [employer] Reason for visit Narrativereview labs/[facility] Other Chief Complaint and Reason for Visit Chief Complaint Sleep apnea annual f ollow up Chief Complaint Sleep apnea annual f ollow up Cognitive Disability Chief Complaint Cognitive Disability Chief Complaint Obstructive sleep ap ricardo Advance Directives No Advanced Directives Records Found Advance Directive Response Recorded Date/ Time Advance Directives No January 26, 018 1:08pm Advance Directive Response Recorded Date/ Time Advance Directives No January 26, 018 12:08pm Reason for Referral Reason appt pt needs scre ening colonoscopy Diagnosis 1 Encounter for screen ing colonoscopy (Z12.11) Referral Organization [facility] Family Medicin sander Bill Referring Provider First Name Scotty Referring Provider Last Name Sara Referring Provider Specialty Family Prac marcy Referred Organization [facility] Referred Provider Kerry Jones Referred Address ,[place], [place],[address] Referred Provider Specialty Surgery Referral Priority Routine General Notes Luh Giraldo 07/14/2022 02:16:50 PM > referral faxed with visit note and insurance card. pt understands she will be contacted to schedule this appt. Reason appt pt is hailelucie namita to see whomever can see her first pt needs consult to discuss official dx of hemochromatosis Diagnosis 1 Hemochromatosis (E83 .119) Referral Organization [facility] Family Medicin e Landy Referring Provider First Name Scotty Referring Provider Last Name Sara Referring Provider Specialty Family Prac marcy [facility] Referred Provider Ricci Garcia Referred Address [address] [place], [place],[address] Referred Provider Specialty Hematology/O ncology Referral Priority [...] New patient consult Reason Comments Established Patient Reason Comments Results Care Teams (unrecognized sec tion and content) Team Status: Inactive Member Role Status Dates Scotty Ruiz , DO Primary Care Provider Active Rajendra Angulo MD Attending Provider Active Team Status: Active Member Role Status Dates Scotty Ruiz , DO Primary Care Provider Active Team Status: Inactive Member Role Status Dates Scotty Ruiz , DO Primary Care Provider Active Mahendra Romo , PhD Attending Provider Active Paper Rewinder Operator Relationship Specialty Start Date End Date Vincent Aguilar [address] [id number] PCP - General Neurology 07/29/22 Paper Rewinder Operator Relationship Specialty Start Date End Date Vincent Aguilar [address] [phone] PCP - General Neurology 07/29/22 Paper Rewinder Operator Relationship Specialty Start Date End Date Scotty Ruiz MD [address] [place] [id number] PCP - General Family Medicine 11/23/23 Goals (unrecognized section and content) Goals may be documented in a n alternate section Source Comments (unrecognize d section and content) In the event this informatio n is protected by the Federal Confidentiality of Alcohol and Drug Abuse Patient Records regulations: The Federal rules restrict any use of the information to criminally investigate or prosecute any alcohol or drug abuse patient.[facility] HospitalIn the event this information is protected by the Federal Confidentiality of Alcohol and Drug Abuse Patient Records regulations: The Federal rules restrict any use of the information to criminally investigate or prosecute any alcohol or drug abuse patient.[facility] HospitalIn the event this information is protected by the Federal Confidentiality of Alcohol and Drug Abuse Patient Records regulations: The Federal rules restrict any use of the information to criminally investigate or prosecute any alcohol or drug abuse patient.[facility] INFORMATION SOURCE (unrecogn ized section and content) DATE CREATED AUTHOR 08/30/2022 [facility] DATE CREATED AUTHOR AUTHOR'S ORGANIZ ATION 09/27/2022 [facility] DATE CREATED AUTHOR AUTHOR'S ORGANIZ ATION 01/13/2023 [facility] DATE CREATED AUTHOR AUTHOR'S ORGANIZ ATION 06/04/2023 [facility] DATE CREATED AUTHOR AUTHOR'S ORGANIZ ATION 04/22/2024 [facility] FOR RECORDS PERTAINING TO PATIENTS WHO ARE [...] BE BASED ON THE PRIMARY CLINICAL RECORDS. [facility] [facility]. provides no warranty or guarantee of the accuracy or completeness of information in this document.
[2024-04-26 11:03] LABS: Basophils Percent Auto 0.6 % (0.2-2.0); Hematocrit 41.3 % (36.0-48.0); Lymphocytes Percent Auto 41.3 % (20.5-60.0); Mean Corpuscular HGB Conc 33.9 g/dL (29.9-35.2); Mean Corpuscular Hemoglobin 32.7 pg (26.7-34.0); Mean Corpuscular Volume 96.5 fL (81.0-99.0); Mean Platelet Volume 8.6 fL (9.5-13.5); Monocytes Absolute Auto 0.4 10^3/uL (0.3-0.8); Monocytes Percent Auto 7.5 % (1.7-12.0); Neutrophils Absolute Auto 2.5 10^3/uL (1.4-6.5); Neutrophils Percent Auto 50.6 % (43.0-75.0); Platelet Count 311 10^3/uL (150-450); Red Blood Count 4.28 10^6/uL (4.20-5.40); Red Cell Distribution Width 12.4 % (11.0-15.0); White Blood Count 4.9 10^3/uL (4.0-11.0)
[2024-04-26 11:46] LABS: Estimated Average Glucose 105 mg/dL; Glycohemoglobin A1C 5.3 % (4.5-6.2)
[2024-04-26 12:06] LABS: Potassium 4.6 mmol/L (3.5-5.1); Sodium 133 mmol/L (136-145)
[2024-04-26 12:07] LABS: Aspartate Amino Transferase 21 U/L (15-37); BUN Creatinine Ratio 12.7; Bilirubin Total 0.4 mg/dL (0.2-1.0); Calcium 8.4 mg/dL (8.5-10.1); Carbon Dioxide 29.6 mmol/L (21.0-32.0); Chloride 98 mmol/L (98-107); Estimated GFR (African America >60 (>=60); Estimated GFR (Non-African Ame >60 (>=60); Glucose 99 mg/dL (74-106)
[2024-04-26 12:08] LABS: Alanine Aminotransferase 29 U/L (14-59); Albumin Globulin Ratio 0.9; Albumin Level 3.5 g/dL (3.4-5.0); Alkaline Phosphatase 160 U/L (46-116); Globulin 3.9 g/dL; Total Protein 7.4 g/dL (6.4-8.2)
[2024-04-26 12:09] LABS: Cholesterol 228 mg/dL (<=200); HDL Cholesterol 126 mg/dL (40-60); Triglycerides 21 mg/dL (<=150); VLDL CHOLESTEROL 4.2 mg/dL
[2024-04-26 12:10] LABS: Thyroid Stimulating Hormone 7.238 uIU/mL (0.358-3.740)
[2024-04-26 12:11] LABS: Chol HDL Ratio 1.8
[2024-04-26 13:28] LABS: Free T4 0.72 ng/dL (0.76-1.46)
[2024-04-26 15:07] LABS: Percent Iron Saturation 59.3 %
[2024-04-27 08:13] LABS: Triiodothyronine (T3) 74 ng/dL (71-180)
== END 2024-04-26 10:03 | disposition home or self-care (01) ==
LOC: LAB 10:07
PROVIDERS: PCP Family Medicine; Visit Provider Family Medicine
DX: E03.9 Hypothyroidism, unspecified (principal); E55.9 Vitamin D deficiency, unspecified; Z79.899 Other long term (current) drug therapy; E83.119 Hemochromatosis, unspecified; R73.9 Hyperglycemia, unspecified; E78.5 Hyperlipidemia, unspecified
CPT/HCPCS: 36415; 80053; 80061; 82306; 82728; 83036; 83540; 83550; 84439; 84443; 84480; 85025

== ENCOUNTER 2024-06-19 09:52 | Outpatient (OUT) | payer MEDICARE, SELFPAY ==
[2024-06-19 10:11] LABS: Basophils Percent Auto 0.5 % (0.2-2.0); Hematocrit 40.4 % (36.0-48.0); Hemoglobin 14.1 g/dL (12.0-16.0); Lymphocytes Absolute Auto 1.7 10^3/uL (1.2-3.8); Mean Corpuscular HGB Conc 34.9 g/dL (29.9-35.2); Mean Corpuscular Hemoglobin 33.8 pg (26.7-34.0); Mean Corpuscular Volume 96.9 fL (81.0-99.0); Mean Platelet Volume 8.6 fL (9.5-13.5); Monocytes Absolute Auto 0.4 10^3/uL (0.3-0.8); Neutrophils Absolute Auto 1.9 10^3/uL (1.4-6.5); Neutrophils Percent Auto 48.5 % (43.0-75.0); Platelet Count 296 10^3/uL (150-450); Red Blood Count 4.17 10^6/uL (4.20-5.40)
[2024-06-19 11:49] LABS: Percent Iron Saturation 51.5 %
[2024-06-19 11:50] LABS: Alanine Aminotransferase 26 U/L (14-59); Albumin Globulin Ratio 1.2; Albumin Level 3.9 g/dL (3.4-5.0); Alkaline Phosphatase 122 U/L (46-116); Anion Gap 10.8; Aspartate Amino Transferase 19 U/L (15-37); BUN Creatinine Ratio 14.3; Bilirubin Total 0.5 mg/dL (0.2-1.0); Calcium 8.7 mg/dL (8.5-10.1); Carbon Dioxide 28.9 mmol/L (21.0-32.0); Chloride 95 mmol/L (98-107); Estimated GFR (African America >60 (>=60); Estimated GFR (Non-African Ame >60 (>=60); Globulin 3.2 g/dL; Glucose 92 mg/dL (74-106); Magnesium 1.8 mg/dL (1.8-2.4); Phosphorus 3.6 mg/dL (2.6-4.7); Potassium 3.7 mmol/L (3.5-5.1); Sodium 131 mmol/L (136-145); Total Protein 7.1 g/dL (6.4-8.2)
[2024-06-22 11:09] LABS: Vitamin B1 (Thiamine), Blood 168.2 nmol/L (66.5-200.0)
== END 2024-06-19 09:53 | disposition home or self-care (01) ==
LOC: LAB 09:54
PROVIDERS: PCP Family Medicine; Visit Provider Nurse Practitioner Family
DX: E03.9 Hypothyroidism, unspecified (principal); Z98.84 Bariatric surgery status; M19.90 Unspecified osteoarthritis, unspecified site; K21.00 Gastro-esophageal reflux disease with esophagitis, without bleeding
CPT/HCPCS: 36415; 80053; 82306; 82607; 82728; 82746; 83540; 83550; 83735; 84100; 84425; 85025

== ENCOUNTER 2024-06-29 13:18 | Emergency (ER) | payer MEDICARE, SELFPAY ==
[2024-06-29 13:26] VITALS: BP 125/83; PULSE 93; TEMP 36.4; O2SAT 99; BMI 28.3
--- NOTE | 2024-06-29 13:38 | ECG_ITS ---
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
--- OUTSIDE RECORDS SUMMARY | 2024-06-29 13:39 | XMS_ITS | CCD ---
Author Organization [facility] Care Team Providers Care Corrections Lieutenant Name Role Phone Scotty Ruiz Unavailable Rajendra Angulo Unavailable [phone] DO Scotty Ruiz Primary Care Provider MD Rajendra Angulo Attending Provider Clarissa, PhD Mahendra Attending Provider Vincent Aguilar Primary Care Provider Scotty Ruiz Primary Care Physician [phone] SCOTTY RUIZ Referring Unavailable SCOTTY RUIZ Primary Care Unavailable HUSSAINAR, RICCI Attending Unavailable VINCENT AGUILAR Primary Care Unavailable RADHA, RICCI Referring Unavailable VINCENT AGUILAR Primary Care Unavailable ABSASHAAR, RICCI Referring Unavailable RADHA, RICCI Attending Unavailable VINCENT AGUILAR Primary Care Unavailable HUSSAINAR, RICCI Referring Unavailable VINCENT AGUILAR Primary Care Unavailable HUSSAINAR, RICCI Referring Unavailable Janie Joseph Unavailable Scotty Ruiz Referring Unavailabl e NILKerry Fernández Attending Unavailable Kerry JONES Attending Unavailable Kerry JONES Attending Unavailable Scotty Ruiz Referring Unavailabl e MOMO, Kerry Castelan Attending Unavailable DO Scotty Ruiz Primary Care Provider [phone] Clarissa, PhD Mahendra Attending Provider [phone] MOMO Epstein, DR PAYNE Admitting Unavailable NILL [...] Unavailable Girvin, DO Fajardo Primary Care Provider [phone] MD Rajendra Angulo Attending Provider Mahendra Romo Attending Unavailable Mahendra Romo Admitting Unavailable Sara, Scotty Primary Care Unavailable Rajendra Angulo Attending UnavailRajendra Small Admitting Unavaila ble Scotty Ruiz Primary Care Unavailable Scotty Ruiz MD Primary Care Provider [phone] TREVOR WHEELER Attending Unavailable FERMIN ROBLEDO Attending Unavailable Allergies Allergy Classification Reported Allergen(s) Allergy Type Date of Onset Reaction(s) Facility (14 sources) Penicillin V Drug Allergy rash [facility] Other (17 sources) Valproate; Translations: [divalproex sodium] Drug Allergy [facility] [place] (4 sources) Penicillins; Translations: [PENICILLINS] Propensity to adverse reactions 03-13-20 [facility] (10 sources) PHENobarbital; Translations: [phenobarbital] Drug Allergy 03-13-20 08 Other (qualifier value), Other, Rash [facility] (4 sources) Penicillin; Translations: [penicillin] Drug Allergy Eruption of skin (disorder) [facility] (2 sources) Valproate; Translations: [Depakote] Drug Allergy [facility] Repository (1 source) benzoin resin Drug Allergy [facility] Repository (1 source) Penicillins Drug allergy (disorder) 08-13-20 15 [facility] (1 source) Phenytoin Drug Allergy [facility] (1 source) Unable to Assess Drug allergy (disorder) 09-19-20 [facility] Repository (2 sources) Penicillins Drug Intolerance 03-13-20 08 Rash, Unknown [facility] (2 sources) Valproate Drug Allergy 11-08-18 80 [facility] Healthcare Medications Current Medications Medication Drug Class(es) Dates Sig (Normalized) Sig (Original) calcium carbonate 1500 mg / cholecalciferol 200 unt oral tablet (16 sources) Vitamin D Start: 05-01-2024 take 1 tablet by mouth once daily at mealtime Calcium Carbonate-Vitamin D3 Active 1 TAB PO Daily May 01, 2024 12:00am 1 tablet with food Orally Once a day take 1 tablet by mariana th once daily at mealtime Calcium + D 600-200 MG-UNIT 1 tablet wit h food Orally Once a day Active take 1 tablet by mariana th every twenty-four hours Calcium + D 600-200 MG-UNIT 1 tablet wit h food Orally Once a day Active Calcium Citrate / Vitamin D (3 sources) Start: 07-27-2022 calcium-vitami n D Refill(s) 0 Start Date: 07/27/22 Status: Ordered 12 hr carBAMazepine 300 mg extended release oral capsule (18 sources) Mood Stabilizer Start: 05-01-2024 take 300 mg by mouth twice daily Carbamazepine Active 300 MG PO Twice daily May 01, 2024 12:00am take 1 capsule by mo uth in the morning, then take 1 capsule by mouth every twelve hours, then take 1 capsule by mouth in the evening, then take 1 capsule by mouth at bedtime carBAMazepine ER (Carbatrol) 300 MG 12 h r capsule Take 300 mg by mouth in [...] capsule (20 sources) Provitamin D2 Compound Start: 05-02-20 take 1250 ug by mouth every other week Ergocalciferol (Vitamin D2) Active 1250 MCG PO .COMPLEX May 02, 2024 11:45am 1,250 mcg orally every other week; Start: 05-01-2024 End: 05-02-2024 take 1250 ug by mouth every week Ergocalciferol (Vitamin D2) Discontinued 1250 MCG PO every week May 01, 2024 12:00am May 02, 2024 11:46am Start: 10-28-2023 ergocalciferol (Vitamin D2) 1.25 MG (54116 UT) capsule Start: 08-07-2016 VITAMIN D 50,0 00 unit capsule take 1 capsule by [facility] every week Vitamin D (Ergocalciferol) 26752 UNIT TAKE 1 CAPSULE BY MOUTH ONCE A WEEK for 90 days Active take 1 capsule by [facility] every week Vitamin D (Ergocalciferol) 01846 UNIT TAKE 1 CAPSULE BY MOUTH ONCE A WEEK Active gabapentin 100 mg oral capsu (5 sources) Anti-epileptic Agent gabapentin (Neurontin) 100 MG capsule Orally 4 times a day and as needed 0 Active Neurontin 75 mg 4 x a day Not-Taking lacosamide 100 mg oral tablet (20 sources) Anti-epileptic Agent Start: 05-01-2024 take 100 mg by mouth twice daily Lacosamide Active 100 MG PO Twice daily May 01, 2024 12:00am Start: 07-27-2022 take 1 tablet by [facility] twice daily Vimpat 200 mg oral tablet 200 mg = 1 tab(s), Oral, BID, Refills(s) 0 Start Date: 07/27/22 Status: Ordered take 3 tablets by [facility] in the morning lacosamide (Vimpat) 50 MG tablet Take 150 mg by mouth in the morning and 150 mg in the evening. 0 Active take 1 tablet by mariana every twelve hours Vimpat 100 MG 1 tablet Orally Twice a day Active take 1 tablet by mariana five times daily Vimpat 100 MG 1 tablet Orally 5 times per day Not-Taking levETIRAcetam 1000 mg oral tablet (20 sources) Start: 05-01-2024 take 1 tablet by mouth twice daily Levetiracetam (Keppra) 1,000 mg tablet Active 1000 MG PO Twice daily May 01, 2024 12:00am Start: 02-06-2021 take 1 tablet by mariana twice daily Keppra 1000 mg oral tablet 1,000 mg = 1 tab(s), Oral, BID, Refills(s) 0 Start Date: 07/27/22 Status: Ordered levothyroxine sodium 0.025 mg oral tablet (20 sources) l-Thyroxine Start: 05-02-2024 take 25 ug by mouth once daily in the morning Levothyroxine Active 25 MCG PO Daily 90 May 02, 2024 12:00am take first thing in the morning on an empty stomach, do not eat or drink for 30-45 min after taking Start: 05-01-2024 End: 05-02-2024 take 1 tablet by mouth once daily in the morning Levothyroxine Discontinued 75 MCG PO May 01, 2024 12:00am May 02, 2024 11:46am TAKE 1 TABLET EVERY MORNING ON AN EMPTY STOMACH Start: 07-29-2023 levothyroxine (Synthroid, Levoxyl) 75 MCG tablet Start: 07-27-2022 take 1 tablet by mariana th once daily levothyroxine 50 mcg (0.05 mg) Tab 50 mcg = 1 tab(s), Oral, Daily, Refills(s) 0 Start Date: 07/27/22 Status: Ordered Start: 08-22-2016 levothyroxine (SYNTHROID) 25 mcg tablet Levothyroxine So dium 75 MCG TAKE 1 TABLET EVERY MORNING ON AN EMPTY STOMACH for 90 days Active OXcarbazepine 300 mg oral tablet (8 sources) Anti-epileptic Agent Start: 11-08-2019 take 1 tablet by mouth twice daily oxcarbazepine 300 mg Tab 300 mg = 1 tab(s), Oral, BID, Refills(s) 0 Start Date: 08/04/22 Status: Ordered valACYclovir 1000 mg oral tablet (20 sources) Herpesvirus Nucleoside Analog DNA Polymerase Inhibitor, Herpes Simplex Virus Nucleoside Analog DNA Polymerase Inhibitor, Herpes Zoster Virus Nucleoside Analog DNA Polymerase Inhibitor Start: 05-01-2024 take 1 tablet by mouth once daily Valacyclovir (Valtrex) 1 gram tablet Active 1000 MG PO Daily May 01, 2024 12:00am 1 tablet Orally once a day Start: 07-27-2022 take 1 tablet by mariana th once daily valacyclovir 1 g Tab 1 gm = 1 tab(s), Oral, Daily, Refills(s) 0 Start Date: 07/27/22 Status: Ordered Start: 03-13-2008 VALACYCLOVIR 5 00 MG TAB Take one(1) tablet daily. 0 0 03/13/2008 Active take 1 tablet by mariana every twenty-four hours Valtrex 1 GM 1 tablet Orally once a day for 10 day(s) Active Comment on above: Take one(1) tablet d aily. Vitamin D (Ergocalciferol) 12541 UNIT (1 source) take 1 capsule by mouth every week Vitamin D (Ergocalciferol) 94667 UNIT TAKE 1 CAPSULE BY MOUTH ONCE A WEEK Active Completed/Discontinued Medications Medication Drug Class(es) Dates Sig (Normalized) Sig (Original) calcium phosphate dibas/vit D3 (VITAMIN D, WITH CALCIUM, ORAL) (3 sources) Start: 01-07-2016 calcium phosphate dibas/vit D3 (VITAMIN D, WITH CALCIUM, ORAL) estrogens, conjugated (half-way) 0.625 mg oral tablet (3 sources) Estrogen Start: 09-15-2016 PREMARIN 0.625 mg tablet folic acid 0.4 mg oral tablet (20 sources) Start: 05-01-2024 End: 05-02-2024 take 400 ug by mouth once daily Folic Acid Discontinued 400 MCG PO Daily May 01, 2024 12:00am May 02, 2024 11:44am Start: 07-27-2022 take 1 tablet by mariana once daily folic acid 0.4 mg Tab 0.4 mg = 1 tab(s), Oral, Daily, Refills(s) 0 Start Date: 07/27/22 Status: Ordered folic acid (Folv ite) 1 MG tablet 1 (one) time each day at the same time 0 Active take 1 tablet by mariana every twenty-four hours Folic Acid 400 MCG 1 tablet Orally once a day Active take 1 tablet by mariana th once daily Folic Acid 400 MCG 1 tablet Orally once a day Active meloxicam 15 mg oral tablet (3 sources) Nonsteroidal Anti-inflammatory Drug Start: 09-14-2016 meloxicam (MOBIC) 15 mg tablet omeprazole 20 mg delayed release oral capsule (7 sources) Proton Pump Inhibitor Start: 05-01-2024 End: 05-02-2024 take 1 capsule by mouth once daily Omeprazole Discontinued 20 MG PO Daily May 01, 2024 12:00am May 02, 2024 11:45am 1 capsule 30 minutes before morning meal Orally Once a day; Start: 06-23-2023 omeprazole (Pr iLOSEC) [address] capsule ursodiol 300 mg oral capsule (7 sources) Bile Acid Start: 05-01-2024 End: 05-02-2024 take 300 mg by mouth twice daily Ursodiol Discontinued 300 MG PO Twice daily May 01, 2024 12:00am May 02, 2024 11:17am Start: 11-08-2021 ursodiol (Acti gall) 300 MG capsule Vitamin D 50,000 intl units (1.25 mg) oral capsule (3 sources) Start: 07-27-2022 take 1 capsule by mouth every week Vitamin D 50,000 intl units (1.25 mg) oral capsule 50,000 International_Unit = 1 cap(s), Oral, qWeek, Refills(s) 0 Start Date: 07/27/22 Status: Ordered Problems Active Problems Problem Classification Problem Date Documented Da te Episodic/Chronic Administrative/social admission (2 sources) Follow-up status; Translations: [Person consulting for explanation of examination or test findings] 12-08-2023 Episodic Biliary tract disease (5 sources) Gallstone; Translations: [Calculus of gallbladder without cholecystitis without obstruction] Episodic Diabetes mellitus without complication (9 sources) Hyperglycemia, unspecified; Translations: [Hyperglycemia] Onset: 07-14-2022 Resolved: 07-14-2022 Episodic Digestive congenital anomalies (1 source) Other specified congenital malformations of intestine; Translations: [OTH SPEC CONGEN MALFORM INTESTINE] Onset: 09-14-2022 Chronic Disorders of lipid metabolism (20 sources) Hyperlipidemia; Translations: [Hyperlipidemia, unspecified] Onset: 07-14-2022 Resolved: 07-14-2022 Chronic Epilepsy; convulsions (20 sources) Epilepsy; Translations: [Epilepsy, unspecified, not intractable, without status epilepticus] Onset: 07-07-2022 Resolved: 07-14-2022 Chronic Fluid and electrolyte disorders (9 sources) Hypo-osmolality and hyponatremia; Translations: [Hypokalemia] Onset: 07-14-2022 Resolved: 07-14-2022 Episodic Genitourinary symptoms and ill-defined conditions (11 sources) Hematuria, unspecified; Translations: [Nocturia] Onset: 07-09-2022 Resolved: 07-14-2022 Episodic Nutritional deficiencies (20 sources) Vitamin D deficiency; Translations: [Vitamin D deficiency, unspecified] Onset: 07-14-2022 Resolved: 07-14-2022 Chronic Other aftercare (5 sources) Other long-term (current) drug therapy; Translations: [OTH [facility] CURRENT DRUG THERAPY] Onset: 07-14-2022 Resolved: 07-14-2022 [...] Chronic Other nutritional; endocrine; and metabolic disorders (7 sources) Hemochromatosis, unspecified; Translations: [Other hemochromatosis] Onset: 07-14-2022 Resolved: 07-14-2022 Chronic Other nutritional; [...] nutritional; endocrine; and metabolic disorders (2 sources) Hypocalcemia; Translations: [Hypocalcemia] 05-02-2024 Chronic Other nutritional; endocrine; and metabolic disorders (2 sources) Hypocalcemia; Translations: [Hypocalcemia] 05-02-2024 Chronic Other nutritional; endocrine; and metabolic disorders [...] 07-14-2022 Resolved: 07-14-2022 Episodic Residual codes; unclassified (18 sources) Obstructive sleep apnea syndrome; Translations: [Obstructive sleep apnea (adult) (pediatric)] 07-27-2022 Chronic Residual codes; unclassified (16 sources) Sleep apnea; Translations: [Sleep apnea, unspecified] 05-02-2024 Chronic Residual codes; unclassified (4 sources) Obstructive sleep apnea (adult) (pediatric); Translations: [Obstructive sleep apnea (adult)(pediatric)] Onset: 06-03-2022 Resolved: 06-03-2022 Chronic Residual codes; [...] [CONTACT W/AND (SUSP) EXPOS COVID-19] Onset: 09-10-2022 Unclassified (4 sources) Intentional weight loss; Translations: [Intentional weight loss] 05-02-2024 Past or Other Problems Problem Classification Problem [...] Test Name Value Interpretation Reference Range Facility Basophils Auto (Bld) [#/Vol] on 04-26-2024 Basophils (Bld) [#/Vol] 0.0 10 3/uL 0.0-0.1 [facility] Basophils/100 WBC Auto (Bld) on 04-26-2024 Basophils/100 WBC (Bld) 0.6 % 0.2-2.0 [facility] Cholesterol in LDL Calc [Mas s/Vol]on 04-26-2024 Cholesterol in LDL [Mass/Vol] 98.0 mg/dL [facility] Comment on above: <100 mg/dl [id number] 0-129 mg/dl NEAR OR ABOVE [id number] mg/dl BORDERLINE [id number] mg/dl HIGH>190 mg/dl VERY HIGH Cholesterol in VLDL Calc [Ma ss/Vol]on 04-26-2024 Cholesterol in VLDL [Mass/Vol] 4.2 mg/dL [facility] Eosinophils/100 WBC Auto (Bl d)on 04-26-2024 Eosinophils/100 WBC (Bld) 0.0 % Low 0.9-7.0 [facility] Erythrocyte distribution wid th Auto (RBC) [Ratio]on 04-26-2024 Erythrocyte distribution width (RBC) [Ratio] 12.4 % 11.0-15.0 [facility] Estimated glomerular filtrat ion rate (GFR) non- Americanon 04-26-2024 GFR/1.73 sq M.predicted among non-blacks MDRD (S/P/Bld) [Vol rate/Area] mL/min/{1.73_m2} >=60 [facility] Globulin Calc (S) [Mass/Vol] on 04-26-2024 Globulin (S) [Mass/Vol] 3.9 g/dL [facility] Glucose mean value [Mass/vol ume] in Blood Estimated from glycated hemoglobinon 04-26-2024 Average glucose Estimated from glycated hemoglobin (Bld) [Mass/Vol] 105 mg/dL [facility] Hematocrit Auto (Bld) [Volum e fraction]on 04-26-2024 Hematocrit (Bld) [Volume fraction] 41.3 % 36.0-48.0 [facility] Hemoglobin [Mass/volume] in Bloodon 04-26-2024 Hemoglobin (Bld) [Mass/Vol] 14.0 g/dL 12.0-16.0 [facility] Iron binding capacity [Mass/ volume] in Serum or Plasmaon 04-26-2024 Iron binding capacity [Mass/Vol] 300.0 ug/dL 250.0-450.0 [facility] Iron saturation [Mass Fracti on] in Serum or Plasmaon 04-26-2024 Iron saturation [Mass fraction] 59.3 % [facility] Laboratory - Chemistry and C hemistry - challengeon 04-26-2024 Albumin [Mass/Vol] 3.5 g/dL 3.4-5.0 [facility] ALP [Catalytic activity/Vol] 160 U/L High 46-116 [facility] ALT [Catalytic activity/Vol] 29 U/L 14-59 [facility] AST [Catalytic activity/Vol] 21 U/L 15-37 [facility] Bilirubin [Mass/Vol] 0.4 mg/dL 0.2-1.0 [facility] Calcium [Mass/Vol] 8.4 mg/dL Low 8.5-10.1 [facility] Chloride [Moles/Vol] 98 mmol/L 98-107 [facility] Cholesterol [Mass/Vol] 228 mg/dL High <=200 [facility] Cholesterol in HDL [Mass/Vol] 126 mg/dL High 40-60 [facility] Comment on above: > or =60 mg/dl - LOW CARDIOVASCULAR RISK<40 mg/dl - HIGH CARDIOVASCULAR RISK CO2 [Moles/Vol] 29.6 mmol/L 21.0-32.0 [facility] Creatinine [Mass/Vol] 0.71 mg/dL 0.55-1.02 [facility] Ferritin [Mass/Vol] 188.0 ng/mL 8.0-252.0 [facility] Free T4 [Mass/Vol] 0.72 ng/dL Low 0.76-1.46 [facility] GFR/1.73 sq M.predicted MDRD (S/P/Bld) [Vol rate/Area] mL/min/{1.73_m2} >=60 [facility] Glucose [Mass/Vol] 99 mg/dL 74-106 [facility] Iron [Mass/Vol] 178.0 ug/dL High 50.0-170.0 [facility] Potassium [Moles/Vol] 4.6 mmol/L 3.5-5.1 [facility] Protein [Mass/Vol] 7.4 g/dL 6.4-8.2 [facility] Sodium [Moles/Vol] 133 mmol/L Low 136-145 [facility] Triglyceride [Mass/Vol] 21 mg/dL <=150 [facility] TSH Qn 7.238 m[IU]/L High 0.358-3.740 [facility] Urea nitrogen [Mass/Vol] 9.0 mg/dL 7.0-18.0 [facility] Urea nitrogen/Creatinine [Mass ratio] 12.7 mg/mg [facility] Laboratory - Hematology and Cell countson 04-26-2024 HbA1c (Bld) [Mass fraction] 5.3 % 4.5-6.2 [facility] Comment on above: ADA RECOMMENDED LIMI T 4.0 - 6.0ADA THERAPEUTIC TARGET < 7.0ACTION SUGGESTED> 7.0 Immature granulocytes/100 WBC (Bld) 0.0 % 0.0-0.5 [facility] Leukocytes [#/volume] correc trisha for nucleated erythrocytes in Blood by Automated counon 04-26-2024 WBC corrected for nucl RBC Auto (Bld) [#/Vol] 4.9 10 3/uL 4.0-11.0 [facility] Lymphocytes Auto (Bld) [#/Vo l]on 04-26-2024 Lymphocytes (Bld) [#/Vol] 2.0 10 3/uL 1.2-3.8 [facility] Lymphocytes/100 WBC Auto (Bl d)on 04-26-2024 Lymphocytes/100 WBC (Bld) 41.3 % 20.5-60.0 [facility] MCH Auto (RBC) [Entitic mass ]on 04-26-2024 MCH (RBC) [Entitic mass] 32.7 pg 26.7-34.0 [facility] MCHC Auto (RBC) [Mass/Vol]on 04-26-2024 MCHC (RBC) [Mass/Vol] 33.9 g/dL 29.9-35.2 [facility] MCV Auto (RBC) [Entitic vol] on 04-26-2024 MCV (RBC) [Entitic vol] 96.5 fL 81.0-99.0 [facility] Monocytes Auto (Bld) [#/Vol] on 04-26-2024 Monocytes (Bld) [#/Vol] 0.4 10 3/uL 0.3-0.8 [facility] Monocytes/100 WBC Auto (Bld) on 04-26-2024 Monocytes/100 WBC (Bld) 7.5 % 1.7-12.0 [facility] Neutrophils Auto (Bld) [#/Vo l]on 04-26-2024 Neutrophils (Bld) [#/Vol] 2.5 10 3/uL 1.4-6.5 [facility] Neutrophils/100 WBC Auto (Bl d)on 04-26-2024 Neutrophils/100 WBC (Bld) 50.6 % 43.0-75.0 [facility] No Panel Informationon 04-26 25-Hydroxy Vitamin D Total 106.7 ng/mL [facility] Comment on above: <20 ng/mL Vit D defi cient20-<30 ng/mL Vit D uvinlqejqyzm75-120 ng/mL Vit D sufficient>100 ng/mL Potential Toxicity Eosinophils # (Auto) 0.0 10 3/uL 0.0-0.7 [facility] Immature Granulocyte # (Auto) 0.00 10 3/uL 0.00-0.03 [facility] Total Triiodothyronine 74 ng/dL 71-180 [facility] Comment on above: Performed at: - [address] [id number] Director: Lonnie Mackenzie PhD, Phone: [phone] Platelet mean volume Auto (B ld) [Entitic vol]on 04-26-2024 Platelet mean volume (Bld) [Entitic vol] 8.6 fL Low 9.5-13.5 [facility] Platelets Auto (Bld) [#/Vol] on 04-26-2024 Platelets (Bld) [#/Vol] 311 10 3/uL 150-450 [facility] RBC Auto (Bld) [#/Vol]on RBC (Bld) [#/Vol] 4.28 10 6/uL 4.20-5.40 [facility] Serum or plasma albumin/glob ulin mass ratioon 04-26-2024 Albumin/Globulin [Mass ratio] 0.9 {ratio} [facility] Serum or plasma anion gap de terminationon 04-26-2024 Anion gap [Moles/Vol] 10.0 mmol/L [facility] Serum or plasma total choles terol/high density lipoprotein (HDL) cholesterol mass rosalio 04-26-2024 Cholesterol.total/Cho lesterol in HDL [Mass ratio] 1.8 {ratio} [facility] Comment on above: 3.3 - 4.4 LOW RISK4. 4 - 7.1 AVERAGE RISK7.1 - 11.0 MODERATE RISK>11.0 HIGH RISK ALKP ISOENZYMESon 01-12-2023 ALP [Catalytic activity/Vol] 159 U/L Critically high 44-121 [facility] Comment on above: Performed By: #### A LKPISO #### [facility] [address] [address] [address] Cecilio Gale Bone Fraction: 36 % Normal 14-68 [facility] Comment on above: Performed By: #### A LKPISO #### [facility] [address] [address] [address] Cecilio Gale Intestinal Frac.: 6 % Normal 0-18 [facility] Comment on above: Performed By: #### A LKPISO #### [facility] [address] [address] [address] Cecilio Gale Liver Fraction: 59 % Normal 18-85 [facility] Comment on above: Performed By: #### A LKPISO #### [facility] [address] [place] [address] Dr. Cecilio Gale CBC AUTO DIFFon 01-11-2023 BASO # 0.0 103/ul Normal 0.0-0.1 [facility] Comment on above: Performed By: #### F T4, VITAD, FETIBC, FERR #### [facility] [address] [place] [address] Dr. Cecilio Gale Basophils/100 WBC (Bld) 0.9 % Normal 0.2-2.0 [facility] Comment on above: Performed By: #### F T4, VITAD, FETIBC, FERR #### [facility] [address] [place] [address] Dr. Cecilio Gale EO # 0.0 103/ul Normal 0.0-0.7 [facility] Comment on above: Performed By: #### F T4, VITAD, FETIBC, FERR #### [facility] [address] [place] [address] Dr. Cecilio Gale Eosinophils/100 WBC (Bld) 0.6 % Critically low 0.9-7.0 [facility] Comment on above: Performed By: #### F T4, VITAD, FETIBC, FERR #### [facility] [address] [place] [address] Dr. Cecilio Gale Erythrocyte distribution width (RBC) [Ratio] 11.8 % Normal 11.0-15.0 [facility] Comment on above: Performed By: #### F T4, VITAD, FETIBC, FERR #### [facility] [address] [place] [address] Dr. Cecilio Gale Hematocrit (Bld) [Volume fraction] 41.3 % Normal 36.0-48.0 [facility] Comment on above: Performed By: #### F T4, VITAD, FETIBC, FERR #### [facility] [address] [place] [address] Dr. Cecilio Gale Hemoglobin (Bld) [Mass/Vol] 14.5 g/dL Normal 12.0-16.0 [facility] Comment on above: Performed By: #### F T4, VITAD, FETIBC, FERR #### [facility] [address] [place] [address] Dr. Cecilio Gale IG # 0.01 10e3/ul Normal 0.00-0.03 [facility] Comment on above: Performed By: #### F T4, VITAD, FETIBC, FERR #### [facility] [address] [place] [address] Dr. Cecilio Gale IG % 0.2 % Normal 0.0-0.5 [facility] Comment on above: Performed By: #### F T4, VITAD, FETIBC, FERR #### [facility] [address] [place] [address] Dr. Cecilio Gale LYMPH # 1.8 103/ul Normal 1.2-3.8 [facility] Comment on above: Performed By: #### F T4, VITAD, FETIBC, FERR #### [facility] [address] [place] [address] Dr. Cecilio Gale Lymphocytes/100 WBC (Bld) 39.1 % Normal 20.5-60.0 [facility] Comment on above: Performed By: #### F T4, VITAD, FETIBC, FERR #### [facility] [address] [place] [address] Dr. Cecilio Gale MANUAL DIFF REQ NO Normal [facility] Comment on above: Performed By: #### F T4, VITAD, FETIBC, FERR #### [facility] [address] [place] [address] Dr. Cecilio Gale MCH (RBC) [Entitic mass] 32.7 pg Normal 26.7-34.0 [facility] Comment on above: Performed By: #### F T4, VITAD, FETIBC, FERR #### [facility] [address] [place] [address] Dr. Cecilio Gale MCHC (RBC) [Mass/Vol] 35.1 g/dL Normal 29.9-35.2 [facility] Comment on above: Performed By: #### F T4, VITAD, FETIBC, FERR #### [facility] [address] [place] [address] Dr. Cecilio Gale MCV (RBC) [Entitic vol] 93.0 fL Normal 81.0-99.0 [facility] Comment on above: Performed By: #### F T4, VITAD, FETIBC, FERR #### [facility] [address] [place] [address] Dr. Cecilio Gale MONO # 0.4 103/ul Normal 0.3-0.8 [facility] Comment on above: Performed By: #### F T4, VITAD, FETIBC, FERR #### [facility] [address] [place] [address] Dr. Cecilio Gale Monocytes/100 WBC (Bld) 9.2 % Normal 1.7-12.0 [facility] Comment on above: Performed By: #### F T4, VITAD, FETIBC, FERR #### [facility] [address] [place] [address] Dr. Cecilio Gale NEUT # 2.3 103/ul Normal 1.4-6.5 [facility] Comment on above: Performed By: #### F T4, VITAD, FETIBC, FERR #### [facility] [address] [place] [address] Dr. Cecilio Gale Neutrophils/100 WBC (Bld) 50.0 % Normal 43.0-75.0 [facility] Comment on above: Performed By: #### F T4, VITAD, FETIBC, FERR #### [facility] [address] [place] [address] Dr. Cecilio Gale Platelet mean volume (Bld) [Entitic vol] 8.6 fL Critically low 9.5-13.5 [facility] Comment on above: Performed By: #### F T4, VITAD, FETIBC, FERR #### [facility] [address] [place] [address] Dr. Cecilio Gale PLT 354 103/ul Normal 150-450 [facility] Comment on above: Performed By: #### F T4, VITAD, FETIBC, FERR #### [facility] [address] [place] [address] Dr. Cecilio Gale RBC 4.44 106/ul Normal 4.20-5.40 [facility] Comment on above: Performed By: #### F T4, VITAD, FETIBC, FERR #### [facility] [address] [place] [address] Dr. Cecilio Gale WBC 4.7 103/ul Normal 4.0-11.0 [facility] Comment on above: Performed By: #### F T4, VITAD, FETIBC, FERR #### [facility] [address] [place] [address] Dr. Cecilio Gale CULTURE URINEon 01-11-2023 CULTURE URINE Culture Observations: LIGHT GROWTH OF MIXED GENITAL CAMERON. NO POTENTIAL PATHOGENS SEEN. Normal [facility] Comment on above: Performed By: #### F T4, VITAD, FETIBC, FERR #### [facility] [address] [place] [address] Dr. Cecilio Gale FERRITINon 01-11-2023 Ferritin [Mass/Vol] 132.0 ng/mL Normal 8.0-252.0 [facility] Comment on above: Performed By: #### F T4, VITAD, FETIBC, FERR #### [facility] [address] [place] [address] Dr. Cecilio Gale FREE T3on 01-11-2023 FREE T3 2.03 pg/mlL Critically low 2.18-3.98 [facility] Comment on above: Performed By: #### F T4, VITAD, FETIBC, FERR #### [facility] [address] [place] [address] Dr. Cecilio Gale FREE T4on 01-11-2023 Free T4 [Mass/Vol] 0.82 ng/dL Normal 0.76-1.46 [facility] Comment on above: Performed By: #### F T4, VITAD, FETIBC, FERR #### [facility] [address] [place] [address] Dr. Cecilio Gale GLYCOHEMOGLOBIN A1Con 2022 ADA RECOMMENDATION SEE BELOW Normal [facility] Comment on above: Result Comment: ADA RECOMMENDED LIMIT 4.0 - 6.0 ADA THERAPEUTIC TARGET < 7.0 ACTION SUGGESTED > 7.0 Performed By: #### F T4, VITAD, FETIBC, FERR #### [facility] [address] [place] [address] Dr. Cecilio Gale Glucose [Mass/Vol] 103 mg/dL Normal [facility] Comment on above: Performed By: #### F T4, VITAD, FETIBC, FERR #### [facility] [address] [place] [address] Dr. Cecilio Gale HbA1c (Bld) [Mass fraction] 5.2 % Normal 4.5-6.2 [facility] Comment on above: Performed By: #### F T4, VITAD, FETIBC, FERR #### [facility] [address] [place] [address] Dr. Cecilio Gale IRON AND TIBCon 01-11-2023 % SATURATION 44.6 % Normal [facility] Comment on above: Performed By: #### F T4, VITAD, FETIBC, FERR #### [facility] [address] [place] [address] Dr. Cecilio Gale Iron [Mass/Vol] 121.0 ug/dL Normal 50.0-170.0 [facility] Comment on above: Performed By: #### F T4, VITAD, FETIBC, FERR #### [facility] [address] [place] [address] Dr. Cecilio Gale TIBC DIRECT 271.0 ug/dL Normal 250.0-450.0 [facility] Comment on above: Performed By: #### F T4, VITAD, FETIBC, FERR #### [facility] [address] [place] [address] Dr. Cecilio Gale LIPID PROFILEon 01-11-2023 CHOL-HDL RATIO NORM SEE BELOW Normal [facility] Comment on above: Result Comment: 3.3 - 4.4 LOW RISK 4.4 - 7.1 AVERAGE RISK 7.1 - 11.0 MODERATE RISK >11.0 HIGH RISK Performed By: #### F T4, VITAD, FETIBC, FERR #### [facility] [address] [place] [address] Dr. Cecilio Gale Cholesterol [Mass/Vol] 216 mg/dL Critically high <=200 [facility] Comment on above: Performed By: #### F T4, VITAD, FETIBC, FERR #### [facility] [address] [address] [address] Cecilio Gale Cholesterol in HDL [Mass/Vol] 96 mg/dL Critically high 40-60 [facility] Comment on above: Performed By: #### F T4, VITAD, FETIBC, FERR #### [facility] [address] [address] [address] Cecilio Gale Cholesterol in LDL [Mass/Vol] 103.0 mg/dL Normal [facility] Comment on above: Performed By: #### F T4, VITAD, FETIBC, FERR #### [facility] [address] [address] [address] Cecilio Gale Cholesterol.total/Cho lesterol in HDL [Mass ratio] 2.3 {ratio} Normal [facility] Comment on above: Performed By: #### F T4, VITAD, FETIBC, FERR #### [facility] [address] [address] [address] Cecilio Gale HDL NORMAL > or = 60 mg/dl - LOW CARDIOVASCULAR RISK <40 mg/dl - HIGH CARDIOVASCULAR RISK Normal [facility] Comment on above: Performed By: #### F T4, VITAD, FETIBC, FERR #### [facility] [address] [address] [address] Cecilio Gale LDL CALC NORMAL SEE BELOW Normal [facility] Comment on above: Result Comment: <100 mg/dl OPTIMAL 100 - 129 mg/dl NEAR OR ABOVE OPTIMAL 130 - 159 mg/dl BORDERLINE HIGH 160 - 189 mg/dl HIGH >190 mg/dl VERY HIGH Performed By: #### F T4, VITAD, FETIBC, FERR #### [facility] [address] [address] [address] Cecilio Gale Triglyceride [Mass/Vol] 86 mg/dL Normal <=150 [facility] Comment on above: Performed By: #### F T4, VITAD, FETIBC, FERR #### [facility] [address] [place] [address] Dr. Cecilio Gale VLDL CALC 17.2 mg/dL Normal [facility] Comment on above: Performed By: #### F T4, VITAD, FETIBC, FERR #### [facility] [address] [place] [address] Dr. Cecilio Gale PROF 14(COMP METB)on 023 Albumin [Mass/Vol] 3.8 g/dL Normal 3.4-5.0 [facility] Comment on above: Performed By: #### F T4, VITAD, FETIBC, FERR #### [facility] [address] [place] [address] Dr. Cecilio Gale Albumin/Globulin [Mass ratio] 1.0 {ratio} Normal [facility] Comment on above: Performed By: #### F T4, VITAD, FETIBC, FERR #### [facility] [address] [place] [address] Dr. Cecilio Gale ALP [Catalytic activity/Vol] 165 U/L Critically high 46-116 [facility] Comment on above: Performed By: #### F T4, VITAD, FETIBC, FERR #### [facility] [address] [place] [address] Dr. Cecilio Gale ALT [Catalytic activity/Vol] 24 U/L Normal 14-59 [facility] Comment on above: Performed By: #### F T4, VITAD, FETIBC, FERR #### [facility] [address] [place] [address] Dr. Cecilio Gale Anion gap [Moles/Vol] 14.6 mmol/L Normal [facility] Comment on above: Performed By: #### F T4, VITAD, FETIBC, FERR #### [facility] [address] [place] [address] Dr. Cecilio Gale AST [Catalytic activity/Vol] 19 U/L Normal 15-37 [facility] Comment on above: Performed By: #### F T4, VITAD, FETIBC, FERR #### [facility] [address] [place] [address] Dr. Cecilio Gale Bilirubin [Mass/Vol] 0.3 mg/dL Normal 0.2-1.0 [facility] Comment on above: Performed By: #### F T4, VITAD, FETIBC, FERR #### [facility] [address] [place] [address] Dr. Cecilio Gale Calcium [Mass/Vol] 8.9 mg/dL Normal 8.5-10.1 [facility] Comment on above: Performed By: #### F T4, VITAD, FETIBC, FERR #### [facility] [address] [place] [address] Dr. Cecilio Gale Chloride [Moles/Vol] 106 mmol/L Normal 98-107 [facility] Comment on above: Performed By: #### F T4, VITAD, FETIBC, FERR #### [facility] [address] [place] [address] Dr. Cecilio Gale CO2 [Moles/Vol] 25.3 mmol/L Normal 21.0-32.0 [facility] Comment on above: Performed By: #### F T4, VITAD, FETIBC, FERR #### [facility] [address] [place] [address] Dr. Cecilio Gale Creatinine [Mass/Vol] 0.72 mg/dL Normal 0.55-1.02 [facility] Comment on above: Performed By: #### F T4, VITAD, FETIBC, FERR #### [facility] [address] [place] [address] Dr. Cecilio Gale EGFR-AF MOLDOVAN >60 Normal >=60 [facility] Comment on above: Performed By: #### F T4, VITAD, FETIBC, FERR #### [facility] [address] [place] [address] Dr. Cecilio Gale EGFR-NON AF MOLDOVAN >60 Normal >=60 [facility] Comment on above: Performed By: #### F T4, VITAD, FETIBC, FERR #### [facility] [address] [place] [address] Dr. Cecilio Gale Globulin (S) [Mass/Vol] 3.7 g/dL Normal [facility] Comment on above: Performed By: #### F T4, VITAD, FETIBC, FERR #### [facility] [address] [place] [address] Dr. Cecilio Gale Glucose [Mass/Vol] 112 mg/dL Critically high 74-106 [facility] Comment on above: Performed By: #### F T4, VITAD, FETIBC, FERR #### [facility] [address] [place] [address] Dr. Cecilio Gale Potassium [Moles/Vol] 4.0 mmol/L Normal 3.5-5.1 [facility] Comment on above: Performed By: #### F T4, VITAD, FETIBC, FERR #### [facility] [address] [place] [address] Dr. Cecilio Gale Protein [Mass/Vol] 7.5 g/dL Normal 6.4-8.2 [facility] Comment on above: Performed By: #### F T4, VITAD, FETIBC, FERR #### [facility] [address] [place] [address] Dr. Cecilio Gale Sodium [Moles/Vol] 142 mmol/L Normal 136-145 [facility] Comment on above: Performed By: #### F T4, VITAD, FETIBC, FERR #### [facility] [address] [place] [address] Dr. Cecilio Gale Urea nitrogen [Mass/Vol] 9.0 mg/dL Normal 7.0-18.0 [facility] Comment on above: Performed By: #### F T4, VITAD, FETIBC, FERR #### [facility] [address] [place] [address] Dr. Cecilio Gale Urea nitrogen/Creatinine [Mass ratio] 12.5 mg/mg Normal [facility] Comment on above: Performed By: #### F T4, VITAD, FETIBC, FERR #### [facility] [address] [place] [address] Dr. Cecilio Gale TSHon 01-11-2023 TSH 1.685 uIU/mL Normal 0.358-3.740 [facility] Comment on above: Performed By: #### F T4, VITAD, FETIBC, FERR #### [facility] [address] [place] [address] Dr. Cecilio Gale UA RANDOM W/MICROSCOPICon BACTERIA NONE SEEN Normal NONE SEEN [facility] Comment on above: Performed By: #### F T4, VITAD, FETIBC, FERR #### [facility] [address] [place] [address] Dr. Cecilio Gale Bilirubin Ql (U) Negative Normal NEGATIVE [facility] Comment on above: Performed By: #### F T4, VITAD, FETIBC, FERR #### [facility] [address] [place] [address] Dr. Cecilio Gale CAST NONE SEEN Normal NONE SEEN [facility] Comment on above: Performed By: #### F T4, VITAD, FETIBC, FERR #### [facility] [address] [place] [address] Dr. Cecilio Gale Clarity (U) CLEAR Normal CLEAR [facility] Comment on above: Performed By: #### F T4, VITAD, FETIBC, FERR #### [facility] [address] [place] [address] Dr. Cecilio Gale Color (U) LT. YELLOW Normal YELLOW [facility] Comment on above: Performed By: #### F T4, VITAD, FETIBC, FERR #### [facility] [address] [place] [address] Dr. Cecilio Gale Crystals LM Nom (Urine sed) NONE SEEN Normal NONE SEEN [facility] Comment on above: Performed By: #### F T4, VITAD, FETIBC, FERR #### [facility] [address] [place] [address] Dr. Cecilio Gale Epithelial cells LM Ql (Urine sed) FEW Abnormal NONE SEEN /RARE [facility] Comment on above: Performed By: #### F T4, VITAD, FETIBC, FERR #### [facility] [address] [place] [address] Dr. Cecilio Gale Glucose Ql (U) Negative Normal NEGATIVE [facility] Comment on above: Performed By: #### F T4, VITAD, FETIBC, FERR #### [facility] [address] [address] [address] Cecilio Gale Hemoglobin Ql (U) Negative Normal NEGATIVE [facility] Comment on above: Performed By: #### F T4, VITAD, FETIBC, FERR #### [facility] [address] [address] [address] Cecilio Gale Ketones Ql (U) Negative Normal NEGATIVE [facility] Comment on above: Performed By: #### F T4, VITAD, FETIBC, FERR #### [facility] [address] [place] [address] Dr. Cecilio Gale LEUKOCYTES Negative Normal NEGATIVE [facility] Comment on above: Performed By: #### F T4, VITAD, FETIBC, FERR #### [facility] [address] [place] [address] Dr. Cecilio Gale MUCOUS NONE SEEN Normal NONE SEEN [facility] Comment on above: Performed By: #### F T4, VITAD, FETIBC, FERR #### [facility] [address] [place] [address] Dr. Cecilio Gale Nitrite Ql (U) Negative Normal NEGATIVE [facility] Comment on above: Performed By: #### F T4, VITAD, FETIBC, FERR #### [facility] [address] [place] [address] Dr. Cecilio Gale pH (U) 7.5 [pH] Normal 5-9 [facility] Comment on above: Performed By: #### F T4, VITAD, FETIBC, FERR #### [facility] [address] [address] [address] Cecilio Gale RBC NONE SEEN Abnormal 0-2 [facility] Comment on above: Performed By: #### F T4, VITAD, FETIBC, FERR #### [facility] [address] [place] [address] Dr. Cecilio Gale SPEC GRAVITY 1.015 Normal 1.005-<=1.025 [facility] Comment on above: Performed By: #### F T4, VITAD, FETIBC, FERR #### [facility] [address] [address] [address] Cecilio Gale UA PROTEIN Negative Normal NEGATIVE/ TRACE [facility] Comment on above: Performed By: #### F T4, VITAD, FETIBC, FERR #### [facility] [address] [address] [address] Cecilio Gale Urobilinogen Qn (U) 0.2 {Anita'U}/dL Normal 0.2 - 1. 0 [facility] Comment on above: Performed By: #### F T4, VITAD, FETIBC, FERR #### [facility] [address] [place] [address] Dr. Cecilio Gale WBC NONE SEEN Normal NONE SEEN [facility] Comment on above: Performed By: #### F T4, VITAD, FETIBC, FERR #### [facility] [address] [place] [address] Dr. Cecilio Gale VITAMIN D 25 OHon 01-11-2023 VIT D 25-OH 60.7 ng/mL Normal [facility] Comment on above: Performed By: #### F T4, VITAD, FETIBC, FERR #### [facility] [address] [place] [address] Dr. Cecilio Gale VIT D RANGES SEE BELOW Normal [facility] Comment on above: Result Comment: <20 ng/mL Vit D deficient 20 - <30 ng/mL Vit D insufficient 30 - 100 ng/mL Vit D sufficient >100 ng/mL Potential Toxicity Performed By: #### F T4, VITAD, FETIBC, FERR #### [facility] [address] [place] [address] Dr. Cecilio Gale LACOSAMIDEon 10-14-2022 Lacosamide 5.4 ug/mL Normal 5.0-10.0 [facility] Comment on above: Result Comment: This test was developed and its performance characteristics determined by [facility]. It has not been cleared or approved by the Food and Drug Administration. Limit of Detection 0.5 . Mean plasma concentrations following maintenance dose 200 mg/day 4.99 +/- 2.51 ug/mL 400 mg/day 9.35 +/- 4.22 ug/mL 600 mg/day 12.46 +/- 5.60 ug/mL Performed By: #### F T4, VITAD, FETIBC, FERR #### [facility] [address] [address] [address] Cecilio Gale LEVETIRACETAM, SERUM OR PLAS MAon 10-12-2022 Levetiracetam, S 26.4 ug/mL Normal 10.0-40.0 [facility] Comment on above: Performed By: #### F T4, VITAD, FETIBC, FERR #### [facility] [address] [address] [address] Cecilio Gale TEGRETOLon 10-08-2022 TEGRETOL <0.5 Critically low 4.0-12.0 [facility] Comment on above: Performed By: #### C ARB #### [facility] [address] [address] [address] Cecilio Gael General Surgery Office/Clini c Noteon 09-27-2022 General [...] 50,000 intl units (1.25 mg) oral capsule, 00366 International_Unit= 1 cap(s), Oral, qWeek Allergies Depakote [...] mRNA BNT-162b2 vax 01/17/2021 Given Prophylaxis Normal [facility] Comment on above: Result Comment: Elec tronically Signed By: MOMO CHAND, Kerry Castelan\.br\Date and Time Signed: 09/27/22 18:54 EST Ambulatory Visit Summaryon 1 11-22-2021 Ambulatory Visit Summary MIKEY NEWTON :1965 Visit Date:09/22/2022 Ambulatory Visit Instructions Your [...] neoplasm of colon Vitamin D deficiency Normal [facility] Reminderson 09-22-2022 Reminders - From: Delmy Rebollar LPN To: N - Clinical; Sent: 09/22/2022 15:29:30 EST Show up: 08/09/2025 07:00:00 EDT Subject: colonoscopy recall Due Date/Time: 09/09/2025 07:00:00 EST Reminder/Recall Patient is due for colonoscopy 09/09/2025 due to history of tubular adenoma. Normal [facility] Pathology Noteon 09-11-2022 Pathology Note [id number] #1.00CD:127 Normal [facility] Outside Colonoscopyon 2021 Outside Colonoscopy [id number] #1.00CD:127 Normal [facility] Lab Reportson 09-08-2022 Lab Reports [id number] #1.00CD:127 Normal [facility] Covid-19 PCR (CVDTB)on 08-10 SARS-CoV-2 (COVID-19) RNA CAL+probe Ql (Unsp spec) Not detected Normal NOT DETECTED [facility] Comment on above: Result Comment: This test is not yet approved or cleared by the [place] FDA. When there are no FDA-approved or cleared tests available, and other criteria are met, FDA can make tests available under an emergency access mechanism called an Emergency Use Authorization (EUA). The EUA for this test is supported by the Managing Broker of Health and Human Service's (HHS's) declaration [...] consistent with SARS-CoV-2. Performed By: #### C VDTBH #### [facility] [address] [place], [place] [address] Dr. Cecilio Gale Pre-Certification Formon Pre-Certification Form [id number] #1.00CD:127 Normal [facility] CBC W Auto Differential pane l (Bld)on 08-21-2022 Basophils (Bld) [#/Vol] 0.05 10*3/uL Normal <0.11 [facility] Comment on above: Order Comment: Speci men Type: BLOOD SPECIMEN Ordering Facility: [facility] Address: [address] [place] [address] Performed By: #### 5 7021-8 #### [facility] CLIA [id number] [address] [place] [address] Basophils/100 WBC (Bld) 0.8 % Normal [facility] Comment on above: Order Comment: Speci men Type: BLOOD SPECIMEN Ordering Facility: [facility] Address: [address] [place] [address] Performed By: #### 5 7021-8 #### [facility] CLIA [id number] [address] [place] [address] Differential cell count method Nom (Bld) Auto Normal [facility] Comment on above: Order Comment: Speci men Type: BLOOD SPECIMEN Ordering Facility: [facility] Address: [address] [address] Performed By: #### 5 7021-8 #### [facility] CLIA [id number] [address] [place] [address] Eosinophils (Bld) [#/Vol] 10*3/uL Normal <0.46 [facility] Comment on above: Order Comment: Speci men Type: BLOOD SPECIMEN Ordering Facility: [facility] Address: [address] [place] [address] Performed By: #### 5 7021-8 #### [facility] CLIA [id number] [address] [place] [address] Eosinophils/100 WBC (Bld) 0.0 % Normal [facility] Comment on above: Order Comment: Speci men Type: BLOOD SPECIMEN Ordering Facility: [facility] Address: [address] [place] [address] Performed By: #### 5 7021-8 #### [facility] CLIA [id number] [address] [place] [address] Erythrocyte distribution width (RBC) [Ratio] 12.1 % Normal 11.5-15.0 [facility] Comment on above: Order Comment: Speci men Type: BLOOD SPECIMEN Ordering Facility: [facility] Address: [address] [place] [address] Performed By: #### 5 7021-8 #### [facility] CLIA [id number] [address] [place] [address] Hematocrit (Bld) [Volume fraction] 40.8 % Normal 36.0-46.0 [facility] Comment on above: Order Comment: Speci men Type: BLOOD SPECIMEN Ordering Facility: [facility] Address: [address] [place], [place] [address] Performed By: #### 5 7021-8 #### [facility] CLIA [id number] [address] [place] [address] Hemoglobin (Bld) [Mass/Vol] 14.3 g/dL Normal 11.5-15.5 [facility] Comment on above: Order Comment: Speci men Type: BLOOD SPECIMEN Ordering Facility: [facility] Address: [address] [place] [address] Performed By: #### 5 7021-8 #### [facility] CLIA [id number] [address] [place] [address] IMMATURE GRAN % 0.2 % Normal [facility] Comment on above: Order Comment: Speci men Type: BLOOD SPECIMEN Ordering Facility: [facility] Address: [address] [place] [address] Performed By: #### 5 7021-8 #### [facility] CLIA [id number] [address] [place] [address] 31216 IMMATURE GRAN ABS <0.03 Normal <0.10 [facility] Comment on above: Order Comment: Speci men Type: BLOOD SPECIMEN Ordering Facility: [facility] Address: [address] [place] [address] Performed By: #### 5 7021-8 #### [facility] CLIA [id number] [address] [place] [address] 88244 Lymphocytes (Bld) [#/Vol] 2.64 10*3/uL Normal 1.00-4.00 [facility] Comment on above: Order Comment: Speci men Type: BLOOD SPECIMEN Ordering Facility: [facility] Address: [address] [place] [address] Performed By: #### 5 7021-8 #### [facility] CLIA [id number] [address] [place] [address] 53327 Lymphocytes/100 WBC (Bld) 41.4 % Normal [facility] Comment on above: Order Comment: Speci men Type: BLOOD SPECIMEN Ordering Facility: [facility] Address: [address] [place] [address] Performed By: #### 5 7021-8 #### [facility] CLIA [id number] [address] [place] [address] 96824 MCH (RBC) [Entitic mass] 33.2 pg Normal 26.0-34.0 [facility] Comment on above: Order Comment: Speci men Type: BLOOD SPECIMEN Ordering Facility: [facility] Address: [address] [place] [address] Performed By: #### 5 7021-8 #### [facility] CLIA [id number] [address] [place] [address] 69547 MCHC (RBC) [Mass/Vol] 35.0 g/dL Normal 30.5-36.0 [facility] Comment on above: Order Comment: Speci men Type: BLOOD SPECIMEN Ordering Facility: [facility] Address: [address] [place] [address] Performed By: #### 5 7021-8 #### [facility] CLIA [id number] [address] [place] [address] 12478 MCV (RBC) [Entitic vol] 94.7 fL Normal 80.0-100.0 [facility] Comment on above: Order Comment: Speci men Type: BLOOD SPECIMEN Ordering Facility: [facility] Address: [address] [place] [address] Performed By: #### 5 7021-8 #### [facility] CLIA [id number] [address] [place] [address] 01524 Monocytes (Bld) [#/Vol] 0.61 10*3/uL Normal <0.87 [facility] Comment on above: Order Comment: Speci men Type: BLOOD SPECIMEN Ordering Facility: [facility] Address: [address] [place] [address] Performed By: #### 5 7021-8 #### [facility] CLIA [id number] [address] [place] [address] 88250 Monocytes/100 WBC (Bld) 9.6 % Normal [facility] Comment on above: Order Comment: Speci men Type: BLOOD SPECIMEN Ordering Facility: [facility] Address: [address] [place] [address] Performed By: #### 5 7021-8 #### [facility] CLIA [id number] [address] [place] [address] 70630 Neutrophils (Bld) [#/Vol] 3.06 10*3/uL Normal 1.45-7.50 [facility] Comment on above: Order Comment: Speci men Type: BLOOD SPECIMEN Ordering Facility: [facility] Address: [address] [place] [address] Performed By: #### 5 7021-8 #### [facility] CLIA [id number] [address] [place] [address] 14609 Neutrophils/100 WBC (Bld) 48.0 % Normal [facility] Comment on above: Order Comment: Speci men Type: BLOOD SPECIMEN Ordering Facility: [facility] Address: [address] [place] [address] Performed By: #### 5 7021-8 #### [facility] CLIA [id number] [address] [place] [address] 16448 Nucleated RBC (Bld) [#/Vol] 10*3/uL Normal <0.01 [facility] Comment on above: Order Comment: Speci men Type: BLOOD SPECIMEN Ordering Facility: [facility] Address: [address] [place] [address] Performed By: #### 5 7021-8 #### [facility] CLIA [id number] [address] [place] [address] 23289 Nucleated RBC/100 WBC (Bld) [Ratio] 0.0 /100 WBC Normal [facility] Comment on above: Order Comment: Speci men Type: BLOOD SPECIMEN Ordering Facility: [facility] Address: [address] [place], [place] [address] Performed By: #### 5 7021-8 #### [facility] CLIA [id number] [address] [place] [address] 03040 Platelet mean volume (Bld) [Entitic vol] 8.3 fL Low 9.0-12.7 [facility] Comment on above: Order Comment: Speci men Type: BLOOD SPECIMEN Ordering Facility: [facility] Address: [address] [place] [address] Performed By: #### 5 7021-8 #### [facility] CLIA [id number] [address] [place] [address] Platelets (Bld) [#/Vol] 345 10*3/uL Normal 150-400 [facility] Comment on above: Order Comment: Speci men Type: BLOOD SPECIMEN Ordering Facility: [facility] Address: [address] [place] [address] Performed By: #### 5 7021-8 #### [facility] CLIA [id number] [address] [place] [address] 04518 RBC (Bld) [#/Vol] 4.31 10*6/uL Normal 3.90-5.20 [facility] Comment on above: Order Comment: Speci men Type: BLOOD SPECIMEN Ordering Facility: [facility] Address: [address] [place] [address] Performed By: #### 5 7021-8 #### [facility] CLIA [id number] [address] [place] [address] 26281 WBC (Bld) [#/Vol] 6.37 10*3/uL Normal 3.70-11.00 [facility] Comment on above: Order Comment: Speci men Type: BLOOD SPECIMEN Ordering Facility: [facility] Address: [address] [place] [address] Performed By: #### 5 7021-8 #### [facility] CLIA [id number] [address] [place] [address] 19727 Comprehensive metabolic 2000 panelon 08-21-2022 Albumin [Mass/Vol] 4.3 g/dL Normal 3.9-4.9 [facility] Comment on above: Order Comment: Speci men Type: BLOOD SPECIMEN Ordering Facility: [facility] Address: [address] [place] [address] Performed By: #### 2 4323-8 #### [facility] CLIA [id number] [address] [place] [address] 25967 ALP [Catalytic activity/Vol] 167 U/L High 34-123 [facility] Comment on above: Order Comment: Speci men Type: BLOOD SPECIMEN Ordering Facility: [facility] Address: [address] [address] Performed By: #### 2 4323-8 #### [facility] CLIA [id number] [address] [place] [address] ALT [Catalytic activity/Vol] 13 U/L Normal 7-38 [facility] Comment on above: Order Comment: Speci men Type: BLOOD SPECIMEN Ordering Facility: [facility] Address: [address] [address] Performed By: #### 2 4323-8 #### [facility] CLIA [id number] [address] [place] [address] 31551 Anion gap [Moles/Vol] 9 mmol/L Normal 9-18 [facility] Comment on above: Order Comment: Speci men Type: BLOOD SPECIMEN Ordering Facility: [facility] Address: [address] [address] Performed By: #### 2 4323-8 #### [facility] CLIA [id number] [address] [place] [address] 05841 AST [Catalytic activity/Vol] 16 U/L Normal 13-35 [facility] Comment on above: Order Comment: Speci men Type: BLOOD SPECIMEN Ordering Facility: [facility] Address: [address] [address] Performed By: #### 2 4323-8 #### [facility] CLIA [id number] [address] [place] [address] 71489 Bilirubin [Mass/Vol] 0.3 mg/dL Normal 0.2-1.3 [facility] Comment on above: Order Comment: Speci men Type: BLOOD SPECIMEN Ordering Facility: [facility] Address: [address] [address] Performed By: #### 2 4323-8 #### [facility] CLIA [id number] [address] [place] [address] 00655 Calcium [Mass/Vol] 9.5 mg/dL Normal 8.5-10.2 [facility] Comment on above: Order Comment: Speci men Type: BLOOD SPECIMEN Ordering Facility: [facility] Address: [address] [place] [address] Performed By: #### 2 4323-8 #### [facility] CLIA [id number] [address] [place] [address] 38922 Chloride [Moles/Vol] 98 mmol/L Normal 97-105 [facility] Comment on above: Order Comment: Speci men Type: BLOOD SPECIMEN Ordering Facility: [facility] Address: [address] [place] [address] Performed By: #### 2 4323-8 #### [facility] CLIA [id number] [address] [place] [address] 29253 CO2 [Moles/Vol] 28 mmol/L Normal 22-30 [facility] Comment on above: Order Comment: Speci men Type: BLOOD SPECIMEN Ordering Facility: [facility] Address: [address] [place] [address] Performed By: #### 2 4323-8 #### [facility] CLIA [id number] [address] [place] [address] 22925 Creatinine [Mass/Vol] 0.74 mg/dL Normal 0.58-0.96 [facility] Comment on above: Order Comment: Speci men Type: BLOOD SPECIMEN Ordering Facility: [facility] Address: [address] [place] [address] Performed By: #### 2 4323-8 #### [facility] CLIA [id number] [address] [place] [address] 97119 ESTIMATED GLOMERULAR FILTRATION RATE 96 mL/min/1.73m??? Normal >=60 [facility] Comment on above: Order Comment: Speci men Type: BLOOD SPECIMEN Ordering Facility: [facility] Address: [address] [place] [address] Result Comment: Domonique mated Glomerular Filtration Rate [...] GFR. Performed By: #### 2 4323-8 #### [facility] CLIA [id number] [address] [place] [address] 28339 Glucose [Mass/Vol] 110 mg/dL High 74-99 [facility] Comment on above: Order Comment: Specmeme men Type: BLOOD SPECIMEN Ordering Facility: [facility] Address: [address] [place] [address] Result Comment: The [place] [employer] (ADA) provides guidance for cutoff [...] Standards of Medical Care in Diabetes 2016, [place] [employer]. Diabetes Care. 2016.39(Suppl 1). Performed By: #### 2 4323-8 #### [facility] CLIA [id number] [address] [place] [address] 41851 Potassium [Moles/Vol] 4.6 mmol/L Normal 3.7-5.1 [facility] Comment on above: Order Comment: Jesus bundy Type: BLOOD SPECIMEN Ordering Facility: [facility] Address: [address] [place] [address] Performed By: #### 2 4323-8 #### [facility] CLIA [id number] [address] [place] [address] Protein [Mass/Vol] 7.1 g/dL Normal 6.3-8.0 [facility] Comment on above: Order Comment: Speci men Type: BLOOD SPECIMEN Ordering Facility: [facility] Address: [address] [place] [address] Performed By: #### 2 4323-8 #### [facility] CLIA [id number] [address] [place] [address] 13624 Sodium [Moles/Vol] 135 mmol/L Low 136-144 [facility] Comment on above: Order Comment: Speci men Type: BLOOD SPECIMEN Ordering Facility: [facility] Address: [address] [place] [address] Performed By: #### 2 4323-8 #### [facility] CLIA [id number] [address] [place] [address] 74418 Urea nitrogen [Mass/Vol] 10 mg/dL Normal 7-21 [facility] Comment on above: Order Comment: Speci men Type: BLOOD SPECIMEN Ordering Facility: [facility] Address: [address] [place] [address] Performed By: #### 2 4323-8 #### [facility] CLIA [id number] [address] [place] [address] 31029 Ferritin SerPl-mCncon 2021 Ferritin [Mass/Vol] 196.0 ng/mL Normal 14.7-205.1 [facility] Comment on above: Order Comment: Speci men Type: BLOOD SPECIMEN Ordering Facility: [facility] Address: [address] [place] [address] Performed By: #### 5 0190-8, 2276-4 #### [facility] CLIA [id number] [address] [place] [address] [place] Iron and Iron binding capaci ty panelon 08-21-2022 Iron [Mass/Vol] 133 ug/dL Normal 41-186 [facility] Comment on above: Order Comment: Speci men Type: BLOOD SPECIMEN Ordering Facility: [facility] Address: [address] [place] [address] Performed By: #### 5 0190-8, 2276-4 #### [facility] CLIA [id number] [address] [place] [address] Iron binding capacity [Mass/Vol] 280 ug/dL Normal 232-386 [facility] Comment on above: Order Comment: Speci men Type: BLOOD SPECIMEN Ordering Facility: [facility] Address: [address] [place] [address] Performed By: #### 5 0190-8, 2276-4 #### [facility] CLIA [id number] [address] [place] [address] OF [facility] Iron/TIBC [Molar ratio] 47.5 % Normal 15.0-57.0 [facility] Comment on above: Order Comment: Speci men Type: BLOOD SPECIMEN Ordering Facility: [facility] Address: [address] [place] [address] Performed By: #### 5 0190-8, 2276-4 #### [facility] CLIA [id number] [address] [place] [address] [place] Consent for Procedure/Surger yon 08-05-2022 Consent for Procedure/Surgery [id number] #[id number] Normal [facility] Ambulatory Visit Summaryon 0 08-04-2022 Ambulatory Visit Summary MIKEY NEWTON :1965 Visit Date:08/04/2022 Ambulatory Visit Instructions Your [...] neoplasm of colon Vitamin D deficiency Normal [facility] Comprehensive metabolic 2000 panelon 07-30-2022 Albumin [Mass/Vol] 4.4 g/dL 3.9 - 4.9 g/dL [facility] ALP [Catalytic activity/Vol] 166 U/L High 34 - 123 U/L [facility] ALT [Catalytic activity/Vol] 18 U/L 7 - 38 U/L [facility] Anion gap [Moles/Vol] 11 mmol/L 9 - 18 mmol/L [facility] AST [Catalytic activity/Vol] 21 U/L 13 - 35 U/L [facility] Bilirubin [Mass/Vol] 0.4 mg/dL 0.2 - 1 .3 mg/dL [facility] Calcium [Mass/Vol] 9.5 mg/dL 8.5 - 10. 2 mg/dL [facility] Chloride [Moles/Vol] 98 mmol/L 97 - 10 5 mmol/L [facility] CO2 [Moles/Vol] 25 mmol/L 22 - 30 mmol/L [facility] Creatinine [Mass/Vol] 0.66 mg/dL 0.58 - 0.96 mg/dL [facility] Estimated Glomerular Filtration Rate 104 mL/min/1.73m >=60 mL/min/1.73m [facility] Glucose [Mass/Vol] 91 mg/dL 74 - 99 mg/dL [facility] Potassium [Moles/Vol] 4.8 mmol/L 3.7 - 5.1 mmol/L [facility] Protein [Mass/Vol] 7.3 g/dL 6.3 - 8.0 g/dL [facility] Sodium [Moles/Vol] 134 mmol/L Low 136 - 144 mmol/L [facility] Urea nitrogen [Mass/Vol] 8 mg/dL 7 - 21 mg/dL [facility] FERRITIN BLDon 07-30-2022 Ferritin [Mass/Vol] 176.0 ng/mL 14.7 - 2 05.1 ng/mL [facility] Iron and Iron binding capaci ty panelon 07-30-2022 Iron [Mass/Vol] 149 ug/dL 41 - 186 ug/dL [facility] Iron binding capacity [Mass/Vol] 273 ug/dL 232 - 386 ug/dL [facility] Iron/TIBC [Molar ratio] 54.6 % 15.0 - 57.0 % [facility] CBC W Auto Differential pane l (Bld)on 07-29-2022 Basophils (Bld) [#/Vol] 0.05 10*3/uL Normal <0.11 [facility] Comment on above: Order Comment: Speci men Type: BLOOD SPECIMEN Ordering Facility: [facility] Address: [address] [place] [address] Performed By: #### 5 7021-8 #### [facility] CLIA [id number] [address] [place] [address] 89292 Basophils/100 WBC (Bld) 0.9 % Normal [facility] Comment on above: Order Comment: Speci men Type: BLOOD SPECIMEN Ordering Facility: [facility] Address: [address] [place] [address] Performed By: #### 5 7021-8 #### [facility] CLIA [id number] [address] [place] [address] 75545 Differential cell count method Nom (Bld) Auto Normal [facility] Comment on above: Order Comment: Speci men Type: BLOOD SPECIMEN Ordering Facility: [facility] Address: [address] [place] [address] Performed By: #### 5 7021-8 #### [facility] CLIA [id number] [address] [place] [address] 63976 Eosinophils (Bld) [#/Vol] 10*3/uL Normal <0.46 [facility] Comment on above: Order Comment: Speci men Type: BLOOD SPECIMEN Ordering Facility: [facility] Address: [address] [place] [address] Performed By: #### 5 7021-8 #### [facility] CLIA [id number] [address] [place] [address] 77472 Eosinophils/100 WBC (Bld) 0.0 % Normal [facility] Comment on above: Order Comment: Speci men Type: BLOOD SPECIMEN Ordering Facility: [facility] Address: [address] [place] [address] Performed By: #### 5 7021-8 #### [facility] CLIA [id number] [address] [place] [address] 73556 Erythrocyte distribution width (RBC) [Ratio] 12.1 % Normal 11.5-15.0 [facility] Comment on above: Order Comment: Speci men Type: BLOOD SPECIMEN Ordering Facility: [facility] Address: [address] [place] [address] Performed By: #### 5 7021-8 #### [facility] CLIA [id number] [address] [place] [address] 91804 Hematocrit (Bld) [Volume fraction] 41.6 % Normal 36.0-46.0 [facility] Comment on above: Order Comment: Speci men Type: BLOOD SPECIMEN Ordering Facility: [facility] Address: [address] [place] [address] Performed By: #### 5 7021-8 #### [facility] CLIA [id number] [address] [place] [address] 55837 Hemoglobin (Bld) [Mass/Vol] 14.5 g/dL Normal 11.5-15.5 [facility] Comment on above: Order Comment: Speci men Type: BLOOD SPECIMEN Ordering Facility: [facility] Address: [address] [place] [address] Performed By: #### 5 7021-8 #### [facility] CLIA [id number] [address] [place] [address] 88203 IMMATURE GRAN % 0.3 % Normal [facility] Comment on above: Order Comment: Speci men Type: BLOOD SPECIMEN Ordering Facility: [facility] Address: [address] [place] [address] Performed By: #### 5 7021-8 #### [facility] CLIA [id number] [address] [place] [address] 92907 IMMATURE GRAN ABS <0.03 Normal <0.10 [facility] Comment on above: Order Comment: Speci men Type: BLOOD SPECIMEN Ordering Facility: [facility] Address: [address] [place] [address] Performed By: #### 5 7021-8 #### [facility] CLIA [id number] [address] [place] [address] 06182 Lymphocytes (Bld) [#/Vol] 2.09 10*3/uL Normal 1.00-4.00 [facility] Comment on above: Order Comment: Speci men Type: BLOOD SPECIMEN Ordering Facility: [facility] Address: [address] [place] [address] Performed By: #### 5 7021-8 #### [facility] CLIA [id number] [address] [place] [address] 36067 Lymphocytes/100 WBC (Bld) 36.0 % Normal [facility] Comment on above: Order Comment: Speci men Type: BLOOD SPECIMEN Ordering Facility: [facility] Address: [address] [place] [address] Performed By: #### 5 7021-8 #### [facility] CLIA [id number] [address] [place] [address] 96065 MCH (RBC) [Entitic mass] 33.0 pg Normal 26.0-34.0 [facility] Comment on above: Order Comment: Speci men Type: BLOOD SPECIMEN Ordering Facility: [facility] Address: [address] [place] [address] Performed By: #### 5 7021-8 #### [facility] CLIA [id number] [address] [place] [address] 19974 MCHC (RBC) [Mass/Vol] 34.9 g/dL Normal 30.5-36.0 [facility] Comment on above: Order Comment: Speci men Type: BLOOD SPECIMEN Ordering Facility: [facility] Address: [address] [place], [place] [address] Performed By: #### 5 7021-8 #### [facility] CLIA [id number] [address] [place] [address] 97856 MCV (RBC) [Entitic vol] 94.8 fL Normal 80.0-100.0 [facility] Comment on above: Order Comment: Speci men Type: BLOOD SPECIMEN Ordering Facility: [facility] Address: [address] [place], [place] [address] Performed By: #### 5 7021-8 #### [facility] CLIA [id number] [address] [place] [address] 34422 Monocytes (Bld) [#/Vol] 0.44 10*3/uL Normal <0.87 [facility] Comment on above: Order Comment: Speci men Type: BLOOD SPECIMEN Ordering Facility: [facility] Address: [address] [place] [address] Performed By: #### 5 7021-8 #### [facility] CLIA [id number] [address] [place] [address] 42909 Monocytes/100 WBC (Bld) 7.6 % Normal [facility] Comment on above: Order Comment: Speci men Type: BLOOD SPECIMEN Ordering Facility: [facility] Address: [address] [place] [address] Performed By: #### 5 7021-8 #### [facility] CLIA [id number] [address] [place] [address] 93165 Neutrophils (Bld) [#/Vol] 3.21 10*3/uL Normal 1.45-7.50 [facility] Comment on above: Order Comment: Speci men Type: BLOOD SPECIMEN Ordering Facility: [facility] Address: [address] [place] [address] Performed By: #### 5 7021-8 #### [facility] CLIA [id number] [address] [place] [address] 63347 Neutrophils/100 WBC (Bld) 55.2 % Normal [facility] Comment on above: Order Comment: Speci men Type: BLOOD SPECIMEN Ordering Facility: [facility] Address: [address] [place], [place] [address] Performed By: #### 5 7021-8 #### [facility] CLIA [id number] [address] [place] [address] 14118 Nucleated RBC (Bld) [#/Vol] 10*3/uL Normal <0.01 [facility] Comment on above: Order Comment: Speci men Type: BLOOD SPECIMEN Ordering Facility: [facility] Address: [address] Performed By: #### 5 7021-8 #### [facility] CLIA [id number] [address] [place] [address] Nucleated RBC/100 WBC (Bld) [Ratio] 0.0 /100 WBC Normal [facility] Comment on above: Order Comment: Speci men Type: BLOOD SPECIMEN Ordering Facility: [facility] Address: [address] [place], [place] [id number] Performed By: #### 5 7021-8 #### [facility] CLIA [id number] [address] [place] [id number] Platelet mean volume (Bld) [Entitic vol] 8.6 fL Low 9.0-12.7 [facility] Comment on above: Order Comment: Speci men Type: BLOOD SPECIMEN Ordering Facility: [facility] Address: [address] [place], [place] [id number] Performed By: #### 5 7021-8 #### [facility] CLIA [id number] [address] [place] [id number] Platelets (Bld) [#/Vol] 311 10*3/uL Normal 150-400 [facility] Comment on above: Order Comment: Speci men Type: BLOOD SPECIMEN Ordering Facility: [facility] Address: [address] Performed By: #### 5 7021-8 #### [facility] CLIA [id number] [address] [place] [address] RBC (Bld) [#/Vol] 4.39 10*6/uL Normal 3.90-5.20 [facility] Comment on above: Order Comment: Speci men Type: BLOOD SPECIMEN Ordering Facility: [facility] Address: [address] [place], [place] [address] Performed By: #### 5 7021-8 #### [facility] CLIA [id number] [address] [place] [address] WBC (Bld) [#/Vol] 5.81 10*3/uL Normal 3.70-11.00 [facility] Comment on above: Order Comment: Speci men Type: BLOOD SPECIMEN Ordering Facility: [facility] Address: [address] [place], [place] [address] Performed By: #### 5 7021-8 #### [facility] CLIA [id number] [address] [place] [address] Abs Immature Gran <0.10 k/uL [facility] Basophils (Bld) [#/Vol] 0.05 10*3/uL <0.11 k/uL [facility] Basophils/100 WBC (Bld) 0.9 % [facility] Differential cell count method Nom (Bld) Auto [facility] Eosinophils (Bld) [#/Vol] <0.46 k/uL [facility] Eosinophils/100 WBC (Bld) 0.0 % [facility] Erythrocyte distribution width (RBC) [Ratio] 12.1 % 11.5 - 15.0 % [facility] Hematocrit (Bld) [Volume fraction] 41.6 % 36.0 - 46.0 % [facility] Hemoglobin (Bld) [Mass/Vol] 14.5 g/dL 11.5 - 15.5 g/dL [facility] Immature Gran % 0.3 % [facility] Lymphocytes (Bld) [#/Vol] 2.09 10*3/uL 1.00 - 4.00 k/uL [facility] Lymphocytes/100 WBC (Bld) 36.0 % [facility] MCH (RBC) [Entitic mass] 33.0 pg 26.0 - 34.0 pg [facility] MCHC (RBC) [Mass/Vol] 34.9 g/dL 30.5 - 36.0 g/dL [facility] MCV (RBC) [Entitic vol] 94.8 fL 80.0 - 100.0 fL [facility] Monocytes (Bld) [#/Vol] 0.44 10*3/uL <0.87 k/uL [facility] Monocytes/100 WBC (Bld) 7.6 % [facility] Neutrophils (Bld) [#/Vol] 3.21 10*3/uL 1.45 - 7.50 k/uL [facility] Neutrophils/100 WBC (Bld) 55.2 % [facility] Nucleated RBC (Bld) [#/Vol] <0.01 k/uL [facility] Nucleated RBC/100 WBC (Bld) [Ratio] 0.0 /100 WBC [facility] Platelet mean volume (Bld) [Entitic vol] 8.6 fL Low 9.0 - 12.7 fL [facility] Platelets (Bld) [#/Vol] 311 10*3/uL 150 - 400 k/uL [facility] RBC (Bld) [#/Vol] 4.39 10*6/uL 3.90 - 5.2 0 m/uL [facility] WBC (Bld) [#/Vol] 5.81 10*3/uL 3.70 - 11. 00 k/uL [facility] CNOVSPon 07-29-2022 CNOVSP Visit (SP) Office ([place]) MIKEY NEWTON ([id number]) 1965 F Date Time Provider Department 07/29/22 11:00 AM RICCI GARCIA During your visit today, we recorded the following information about you: Temperature Pulse Respiration Blood pressure 97.1 degrees 83/minute 16/minute 152/89 Weight Height 123 kg 1.651 m Ricci Garcia MD 07/30/2022 12:33 PM Signed NAME: NewtonMikey CLINIC NO.: [id number] DATE OF SERVICE: July 29, 2022 Referring Provider: Scotty Ruiz Consultation requested by Dr. Ruiz for an opinion regarding Ms. Mikey Murciaens, and my final recommendations will be communicated back to the requesting physician by way of shared medical record or letter via US mail. Additional Clinicians involved in Mikey Newton's care: DIAGNOSIS: Elevated iron ASSESSMENT: 56 year [...] JENNIFER/BSO Initial Visit, July 29, 2022: Mikey Newton presents today Hematology and Oncology evaluation. She [...] COLONSCOPY SCR (more content not included)... Normal [facility] Comprehensive metabolic 2000 panelon 07-29-2022 Albumin [Mass/Vol] 4.4 g/dL Normal 3.9-4.9 [facility] Comment on above: Order Comment: Speci men Type: BLOOD SPECIMEN Ordering Facility: [facility] Address: [address] [place] [address] [place] [address] Performed By: #### 2 4323-8 #### [facility] CLIA [id number] [address] [id number] [place] ALP [Catalytic activity/Vol] 166 U/L High 34-123 [facility] Comment on above: Order Comment: Speci men Type: BLOOD SPECIMEN Ordering Facility: [facility] Address: [address] [place], [place] [address] Performed By: #### 2 4323-8 #### [facility] CLIA [id number] [address] [place] [address] [place] ALT [Catalytic activity/Vol] 18 U/L Normal 7-38 [facility] Comment on above: Order Comment: Speci men Type: BLOOD SPECIMEN Ordering Facility: [facility] Address: [address] [place] [address] Performed By: #### 2 4323-8 #### [facility] CLIA [id number] [address] [place] [address] [place] Anion gap [Moles/Vol] 11 mmol/L Normal 9-18 [facility] Comment on above: Order Comment: Speci men Type: BLOOD SPECIMEN Ordering Facility: [facility] Address: [address] [place], [place] [address] Performed By: #### 2 4323-8 #### [facility] CLIA [id number] [address] [place] [address] [place] AST [Catalytic activity/Vol] 21 U/L Normal 13-35 [facility] Comment on above: Order Comment: Speci men Type: BLOOD SPECIMEN Ordering Facility: [facility] Address: [address] [place] [address] Performed By: #### 2 4323-8 #### [facility] CLIA [id number] [address] [place] [address] [place] Bilirubin [Mass/Vol] 0.4 mg/dL Normal 0.2-1.3 [facility] Comment on above: Order Comment: Speci men Type: BLOOD SPECIMEN Ordering Facility: [facility] Address: [address] [id number] Performed By: #### 2 4323-8 #### [facility] CLIA [id number] [address] [place], [place] [address] [place] Calcium [Mass/Vol] 9.5 mg/dL Normal 8.5-10.2 [facility] Comment on above: Order Comment: Speci men Type: BLOOD SPECIMEN Ordering Facility: [facility] Address: [address] [place] [address] Performed By: #### 2 4323-8 #### [facility] CLIA [id number] [address] [place] [address] [place] Chloride [Moles/Vol] 98 mmol/L Normal 97-105 [facility] Comment on above: Order Comment: Speci men Type: BLOOD SPECIMEN Ordering Facility: [facility] Address: [address] [place] [address] Performed By: #### 2 4323-8 #### [facility] CLIA [id number] [address] [place] [address] [place] CO2 [Moles/Vol] 25 mmol/L Normal 22-30 [facility] Comment on above: Order Comment: Speci men Type: BLOOD SPECIMEN Ordering Facility: [facility] Address: [address] [place], [place] [phone] Performed By: #### 2 4323-8 #### [facility] CLIA [id number] [address] [place], [place] [address] [place] Creatinine [Mass/Vol] 0.66 mg/dL Normal 0.58-0.96 [facility] Comment on above: Order Comment: Speci men Type: BLOOD SPECIMEN Ordering Facility: [facility] Address: [address] [phone] Performed By: #### 2 4323-8 #### [facility] CLIA [id number] [address] [place] [address] [place] ESTIMATED GLOMERULAR FILTRATION RATE 104 mL/min/1.73m??? Normal >=60 [facility] Comment on above: Order Comment: Jesus bundy Type: BLOOD SPECIMEN Ordering Facility: [facility] Address: [address] [place] [address] Result Comment: Domonique mated Glomerular Filtration Rate [...] By: #### 2 4323-8 #### [facility] CLIA [id number] [address] [place] [address] [place] Glucose [Mass/Vol] 91 mg/dL Normal 74-99 [facility] Comment on above: Order Comment: Jesus bundy Type: BLOOD SPECIMEN Ordering Facility: [facility] Address: [address] [place] [address] Result Comment: The [place] Diabetes Association (ADA) provides guidance for cutoff [...] Standards of Medical Care in Diabetes 2016, [place] [employer]. Diabetes Care. 2016.39(Suppl 1). Performed By: #### 2 4323-8 #### [facility] CLIA [id number] [address] [place] [address] [place] Potassium [Moles/Vol] 4.8 mmol/L Normal 3.7-5.1 [facility] Comment on above: Order Comment: Speci men Type: BLOOD SPECIMEN Ordering Facility: [facility] Address: [address] [place] [address] Performed By: #### 2 4323-8 #### [facility] CLIA [id number] [address] [place] [address] [place] Protein [Mass/Vol] 7.3 g/dL Normal 6.3-8.0 [facility] Comment on above: Order Comment: Speci men Type: BLOOD SPECIMEN Ordering Facility: [facility] Address: [address] [place] [address] Performed By: #### 2 4323-8 #### [facility] CLIA [id number] [address] [place] [address] [place] Sodium [Moles/Vol] 134 mmol/L Low 136-144 [facility] Comment on above: Order Comment: Speci men Type: BLOOD SPECIMEN Ordering Facility: [facility] Address: [address] [place] [address] Performed By: #### 2 4323-8 #### [facility] CLIA [id number] [address] [place] [address] [place] Urea nitrogen [Mass/Vol] 8 mg/dL Normal 7-21 [facility] Comment on above: Order Comment: Speci men Type: BLOOD SPECIMEN Ordering Facility: [facility] Address: [address] [place], [place] [address] Performed By: #### 2 4323-8 #### [facility] CLIA [id number] [address] [place] [address] [place] Ferritin SerPl-mCncon 2021 Ferritin [Mass/Vol] 176.0 ng/mL Normal 14.7-205.1 [facility] Comment on above: Order Comment: Speci men Type: BLOOD SPECIMEN Ordering Facility: [facility] Address: [address] [place], [place] [address] Performed By: #### 2 276-4, 11111-7 #### [facility] CLIA [id number] [address] [facility] [id number] [place] [address] [place] HFE (HEMOCHROMATOSIS)on 07-10 INTERPRETATION (HEMDNA) Normal [facility] Comment on above: Order Comment: Speci men Type: BLOOD SPECIMEN Ordering Facility: [facility] Address: [address] [place] [address] Result Comment: HFE (Hemochromatosis) Laboratory Accession Number: [id number] Result: C282Y: LOLA H63D: WT S65C: WT Interpretation: 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 Disclaimer: This test was developed and its performance characteristics determined by [facility]'s Nishant [facility] Pathology and Laboratory Medicine [place] ([facility]). It has not been cleared or approved by the FDA. [facility] is regulated under CLIA as certified to perform high- complexity testing. This test is used for clinical purposes. It should not be regarded as investigational or for research. Testing and interpretation performed at [facility], [address] [place] [address]. CLIA Number: [id number] As reviewed by Joshua Mendoza, PhD, FACMG Performed By: #### H EMDNA #### [facility] CLIA [id number] [address] [place] [address] [place] Iron and Iron binding capaci ty panelon 07-29-2022 Iron [Mass/Vol] 149 ug/dL Normal 41-186 [facility] Comment on above: Order Comment: Speci men Type: BLOOD SPECIMEN Ordering Facility: [facility] Address: [address] [place] [address] Performed By: #### 2 276-4, 79586-4 #### [facility] CLIA [id number] [address] [place] [address] [place] Iron binding capacity [Mass/Vol] 273 ug/dL Normal 232-386 [facility] Comment on above: Order Comment: Speci men Type: BLOOD SPECIMEN Ordering [facility]: [facility] Address: [address] [place] [address] Performed By: #### 2 276-4, 06702-4 #### [facility] CLIA [id number] [address] [place] [address] [place] Iron/TIBC [Molar ratio] 54.6 % Normal 15.0-57.0 [facility] Comment on above: Order Comment: Speci men Type: BLOOD SPECIMEN Ordering Facility: [facility] Address: [address] [place] [address] Performed By: #### 2 276-4, 22697-2 #### [facility] CLIA [id number] [address] [place] [address] [place] UA RANDOM W/MICROSCOPICon BACTERIA NONE SEEN Normal NONE SEEN [facility] Comment on above: Performed By: #### F T4, VITAD, FETIBC, FERR #### [facility] [address] [place] [address] Dr. Cecilio Gale Bilirubin Ql (U) Negative Normal NEGATIVE [facility] Comment on above: Performed By: #### F T4, VITAD, FETIBC, FERR #### [facility] [address] [address] [address] Cecilio Gale CAST NONE SEEN Normal NONE SEEN [facility] Comment on above: Performed By: #### F T4, VITAD, FETIBC, FERR #### [facility] [address] [place] [address] Dr. Cecilio Gale Clarity (U) CLEAR Normal CLEAR [facility] Comment on above: Performed By: #### F T4, VITAD, FETIBC, FERR #### [facility] [address] [place] [address] Dr. Cecilio Gale Color (U) LT. YELLOW Normal YELLOW [facility] Comment on above: Performed By: #### F T4, VITAD, FETIBC, FERR #### [facility] [address] [place] [address] Dr. Cecilio Gale Crystals LM Nom (Urine sed) NONE SEEN Normal NONE SEEN [facility] Comment on above: Performed By: #### F T4, VITAD, FETIBC, FERR #### [facility] [address] [place] [address] Dr. Cecilio Gale Epithelial cells LM Ql (Urine sed) FEW Abnormal NONE SEEN /RARE [facility] Comment on above: Performed By: #### F T4, VITAD, FETIBC, FERR #### [facility] [address] [place] [address] Dr. Cecilio Gale Glucose Ql (U) Negative Normal NEGATIVE [facility] Comment on above: Performed By: #### F T4, VITAD, FETIBC, FERR #### [facility] [address] [place] [address] Dr. Cecilio Gale Hemoglobin Ql (U) Negative Normal NEGATIVE [facility] Comment on above: Performed By: #### F T4, VITAD, FETIBC, FERR #### [facility] [address] [address] [address] Cecilio Gale Ketones Ql (U) Negative Normal NEGATIVE [facility] Comment on above: Performed By: #### F T4, VITAD, FETIBC, FERR #### [facility] [address] [address] [address] Cecilio Gale LEUKOCYTES Negative Normal NEGATIVE [facility] Comment on above: Performed By: #### F T4, VITAD, FETIBC, FERR #### [facility] [address] [place] [address] Dr. Cecilio Gale MUCOUS NONE SEEN Normal NONE SEEN [facility] Comment on above: Performed By: #### F T4, VITAD, FETIBC, FERR #### [facility] [address] [place] [address] Dr. Cecilio Gale Nitrite Ql (U) Negative Normal NEGATIVE [facility] Comment on above: Performed By: #### F T4, VITAD, FETIBC, FERR #### [facility] [address] [place] [address] Dr. Cecilio Gale pH (U) 7.0 [pH] Normal 5-9 [facility] Comment on above: Performed By: #### F T4, VITAD, FETIBC, FERR #### [facility] [address] [place] [address] Dr. Cecilio Gale RBC NONE SEEN Abnormal 0-2 [facility] Comment on above: Performed By: #### F T4, VITAD, FETIBC, FERR #### [facility] [address] [address] [address] Cecilio Gale SPEC GRAVITY 1.010 Normal 1.005-<=1.025 [facility] Comment on above: Performed By: #### F T4, VITAD, FETIBC, FERR #### [facility] [address] [address] [address] Cecilio Gale UA PROTEIN Negative Normal NEGATIVE/ TRACE [facility] Comment on above: Performed By: #### F T4, VITAD, FETIBC, FERR #### [facility] [address] [address] [address] Cecilio Gale Urobilinogen Qn (U) 0.2 {Anita'U}/dL Normal 0.2 - 1. 0 [facility] Comment on above: Performed By: #### F T4, VITAD, FETIBC, FERR #### [facility] [address] [place] [address] Dr. Cecilio Gale WBC NONE SEEN Normal NONE SEEN [facility] Comment on above: Performed By: #### F T4, VITAD, FETIBC, FERR #### [facility] [address] [place] [address] Dr. Cecilio Gale Physician Referralon 022 Physician Referral [id number] #[id number] Normal [facility] ALKP ISOENZYMESon 07-10-2022 ALP [Catalytic activity/Vol] 159 U/L Critically high 44-121 [facility] Comment on above: Performed By: #### A LKPISO #### [facility] [address] [place] [address] Dr. Cecilio Gale Bone Fraction: 36 % Normal 14-68 [facility] Comment on above: Performed By: #### A LKPISO #### [facility] [address] [place] [address] Dr. Cecilio Gale Intestinal Frac.: 4 % Normal 0-18 [facility] Comment on above: Performed By: #### A LKPISO #### [facility] [address] [place] [address] Dr. Cecilio Gale Liver Fraction: 60 % Normal 18-85 [facility] Comment on above: Performed By: #### A LKPISO #### [facility] [address] [place] [address] Dr. Cecilio Gale VIT D 25-OH [facility]on 2021 Vitamin D, 25-Hydroxy 50.4 ng/mL Normal 30.0-100.0 [facility] Comment on above: Result Comment: Millie min D deficiency has been defined by the [place] and an Endocrine Society practice guideline as a level of serum 25-OH vitamin D less than 20 ng/mL (1,2). The Endocrine Society went on to further define vitamin D insufficiency as a level between 21 and 29 ng/mL (2). 1. IOM ([place] of [place]). 2010. Dietary reference intakes for calcium and D. [place]: The National Academies Press. 2. Sujatha MF, Vaishali HOLLIDAY, Larisa AZAR, et al. Evaluation, treatment, and prevention of vitamin D deficiency: an Endocrine Society clinical practice guideline. JCEM. 2010; 96(7):1911-30. Performed By: #### F T4, VITAD, FETIBC, FERR #### [facility] [address] [place] [address] Dr. Cecilio Gale CBC AUTO DIFFon 07-08-2022 BASO # 0.0 103/ul Normal 0.0-0.1 [facility] Comment on above: Performed By: #### C BC #### [facility] [address] [address] [address] Cecilio Gale Basophils/100 WBC (Bld) 0.6 % Normal 0.2-2.0 [facility] Comment on above: Performed By: #### C BC #### [facility] [address] [place] [address] Dr. Cecilio Gale EO # 0.0 103/ul Normal 0.0-0.7 [facility] Comment on above: Performed By: #### C BC #### [facility] [address] [place] [address] Dr. Cecilio Gale Eosinophils/100 WBC (Bld) 0.0 % Critically low 0.9-7.0 [facility] Comment on above: Performed By: #### C BC #### [facility] [address] [place] [address] Dr. Cecilio Gale Erythrocyte distribution width (RBC) [Ratio] 11.8 % Normal 11.0-15.0 [facility] Comment on above: Performed By: #### C BC #### [facility] [address] [place] [address] Dr. Cecilio Gale Hematocrit (Bld) [Volume fraction] 40.2 % Normal 36.0-48.0 [facility] Comment on above: Performed By: #### C BC #### [facility] [address] [place] [address] Dr. Cecilio Gale Hemoglobin (Bld) [Mass/Vol] 14.5 g/dL Normal 12.0-16.0 [facility] Comment on above: Performed By: #### C BC #### [facility] [address] [place] [address] Dr. Cecilio Gale IG # 0.01 10e3/ul Normal 0.00-0.03 [facility] Comment on above: Performed By: #### C BC #### [facility] [address] [place] [address] Dr. Cecilio Gale IG % 0.2 % Normal 0.0-0.5 [facility] Comment on above: Performed By: #### C BC #### [facility] [address] [place] [address] Dr. Cecilio Gale LYMPH # 2.1 103/ul Normal 1.2-3.8 [facility] Comment on above: Performed By: #### C BC #### [facility] [address] [place] [address] Dr. Cecilio Gale Lymphocytes/100 WBC (Bld) 45.9 % Normal 20.5-60.0 [facility] Comment on above: Performed By: #### C BC #### [facility] [address] [place] [address] Dr. Cecilio Gale MANUAL DIFF REQ NO Normal [facility] Comment on above: Performed By: #### C BC #### [facility] [address] [place] [address] Dr. Cecilio Gale MCH (RBC) [Entitic mass] 33.0 pg Normal 26.7-34.0 [facility] Comment on above: Performed By: #### C BC #### [facility] [address] [place] [address] Dr. Cecilio Gale MCHC (RBC) [Mass/Vol] 36.1 g/dL Critically high 29.9-35.2 [facility] Comment on above: Performed By: #### C BC #### [facility] [address] [address] [address] Cecilio Gale MCV (RBC) [Entitic vol] 91.6 fL Normal 81.0-99.0 [facility] Comment on above: Performed By: #### C BC #### [facility] [address] [place] [address] Dr. Cecilio Gale MONO # 0.4 103/ul Normal 0.3-0.8 [facility] Comment on above: Performed By: #### C BC #### [facility] [address] [place] [address] Dr. Cecilio Gale Monocytes/100 WBC (Bld) 8.9 % Normal 1.7-12.0 [facility] Comment on above: Performed By: #### C BC #### [facility] [address] [place] [address] Dr. Cecilio Gale NEUT # 2.1 103/ul Normal 1.4-6.5 [facility] Comment on above: Performed By: #### C BC #### [facility] [address] [place] [address] Dr. Cecilio Gale Neutrophils/100 WBC (Bld) 44.4 % Normal 43.0-75.0 [facility] Comment on above: Performed By: #### C BC #### [facility] [address] [place] [address] Dr. Cecilio Gale Platelet mean volume (Bld) [Entitic vol] 8.4 fL Critically low 9.5-13.5 [facility] Comment on above: Performed By: #### C BC #### [facility] [address] [place] [address] Dr. Cecilio Gale PLT 349 103/ul Normal 150-450 [facility] Comment on above: Performed By: #### C BC #### [facility] [address] [place] [address] Dr. Cecilio Gale RBC 4.39 106/ul Normal 4.20-5.40 [facility] Comment on above: Performed By: #### C BC #### [facility] [address] [place] [address] Dr. Cecilio Gale WBC 4.6 103/ul Normal 4.0-11.0 [facility] Comment on above: Performed By: #### C BC #### [facility] [address] [place] [address] Dr. Cecilio Gale CULTURE URINEon 07-08-2022 CULTURE URINE Culture Observations: MODERATE GROWTH OF MIXED GENITAL CAMERON. NO POTENTIAL PATHOGENS SEEN. Normal [facility] Comment on above: Performed By: #### F T4, VITAD, FETIBC, FERR #### [facility] [address] [place] [address] Dr. Cecilio Gale FERRITINon 07-08-2022 Ferritin [Mass/Vol] 182.0 ng/mL Normal 8.0-252.0 [facility] Comment on above: Performed By: #### F T4, VITAD, FETIBC, FERR #### [facility] [address] [place] [address] Dr. Cecilio Gale FREE T3on 07-08-2022 FREE T3 2.02 pg/mlL Critically low 2.18-3.98 The [facility] Comment on above: Performed By: #### F T4, VITAD, FETIBC, FERR #### [facility] [address] [place] [address] Dr. Cecilio Gale FREE T4on 07-08-2022 Free T4 [Mass/Vol] 0.98 ng/dL Normal 0.76-1.46 The [facility] Comment on above: Performed By: #### F T4, VITAD, FETIBC, FERR #### [facility] [address] [place] [address] Dr. Cecilio Gale GLYCOHEMOGLOBIN A1Con 2021 ADA RECOMMENDATION SEE BELOW Normal The [facility] Comment on above: Result Comment: ADA RECOMMENDED LIMIT 4.0 - 6.0 ADA THERAPEUTIC TARGET < 7.0 ACTION SUGGESTED > 7.0 Performed By: #### A 1C #### [facility] [address] [address] [address] Cecilio Gale Glucose [Mass/Vol] 105 mg/dL Normal [facility] Comment on above: Performed By: #### A 1C #### [facility] [address] [address] [address] Cecilio Gale HbA1c (Bld) [Mass fraction] 5.3 % Normal 4.5-6.2 [facility] Comment on above: Performed By: #### A 1C #### [facility] [address] [address] [address] Cecilio Gale IRON AND TIBCon 07-08-2022 % SATURATION 79.9 % Normal [facility] Comment on above: Performed By: #### F T4, VITAD, FETIBC, FERR #### [facility] [address] [address] [address] Cecilio Gale Iron [Mass/Vol] 219.0 ug/dL Critically high 50.0-170.0 [facility] Comment on above: Performed By: #### F T4, VITAD, FETIBC, FERR #### [facility] [address] [address] [address] Cecilio Gale TIBC DIRECT 274.0 ug/dL Normal 250.0-450.0 [facility] Comment on above: Performed By: #### F T4, VITAD, FETIBC, FERR #### [facility] [address] [address] [address] Cecilio Gale LIPID PROFILEon 07-08-2022 CHOL-HDL RATIO NORM SEE BELOW Normal [facility] Comment on above: Result Comment: 3.3 - 4.4 LOW RISK 4.4 - 7.1 AVERAGE RISK 7.1 - 11.0 MODERATE RISK >11.0 HIGH RISK Performed By: #### F T4, VITAD, FETIBC, FERR #### [facility] [address] [place] [address] Dr. Cecilio Gale Cholesterol [Mass/Vol] 215 mg/dL Critically high <=200 [facility] Comment on above: Performed By: #### F T4, VITAD, FETIBC, FERR #### [facility] [address] [address] [address] Cecilio Gale Cholesterol in HDL [Mass/Vol] 98 mg/dL Critically high 40-60 [facility] Comment on above: Performed By: #### F T4, VITAD, FETIBC, FERR #### [facility] [address] [address] [address] Ceiclio Gale Cholesterol in LDL [Mass/Vol] 105.4 mg/dL Normal [facility] Comment on above: Performed By: #### F T4, VITAD, FETIBC, FERR #### [facility] [address] [address] [address] Cecilio Gale Cholesterol.total/Cho lesterol in HDL [Mass ratio] 2.2 {ratio} Normal [facility] Comment on above: Performed By: #### F T4, VITAD, FETIBC, FERR #### [facility] [address] [address] [address] Cecilio Gale HDL NORMAL > or = 60 mg/dl - LOW CARDIOVASCULAR RISK <40 mg/dl - HIGH CARDIOVASCULAR RISK Normal [facility] Comment on above: Performed By: #### F T4, VITAD, FETIBC, FERR #### [facility] [address] [address] [address] Cecilio Gale LDL CALC NORMAL SEE BELOW Normal [facility] Comment on above: Result Comment: <100 mg/dl OPTIMAL 100 - 129 mg/dl NEAR OR ABOVE OPTIMAL 130 - 159 mg/dl BORDERLINE HIGH 160 - 189 mg/dl HIGH >190 mg/dl VERY HIGH Performed By: #### F T4, VITAD, FETIBC, FERR #### [facility] [address] [address] [address] Cecilio Gale Triglyceride [Mass/Vol] 58 mg/dL Normal <=150 [facility] Comment on above: Performed By: #### F T4, VITAD, FETIBC, FERR #### [facility] [address] [address] [address] Cecilio Gale VLDL CALC 11.6 mg/dL Normal [facility] Comment on above: Performed By: #### F T4, VITAD, FETIBC, FERR #### [facility] [address] [place] [address] Dr. Cecilio Gale PROF 14(COMP METB)on 022 Albumin [Mass/Vol] 4.0 g/dL Normal 3.4-5.0 [facility] Comment on above: Performed By: #### F T4, VITAD, FETIBC, FERR #### [facility] [address] [place] [address] Dr. Cecilio Gale Albumin/Globulin [Mass ratio] 1.0 {ratio} Normal [facility] Comment on above: Performed By: #### F T4, VITAD, FETIBC, FERR #### [facility] [address] [place] [address] Dr. Cecilio Gale ALP [Catalytic activity/Vol] 160 U/L Critically high 46-116 [facility] Comment on above: Performed By: #### F T4, VITAD, FETIBC, FERR #### [facility] [address] [place] [address] Dr. Cecilio Gale ALT [Catalytic activity/Vol] 26 U/L Normal 14-59 [facility] Comment on above: Performed By: #### F T4, VITAD, FETIBC, FERR #### [facility] [address] [place] [address] Dr. Cecilio Gale Anion gap [Moles/Vol] 14.1 mmol/L Normal [facility] Comment on above: Performed By: #### F T4, VITAD, FETIBC, FERR #### [facility] [address] [place] [address] Dr. Cecilio Gale AST [Catalytic activity/Vol] 19 U/L Normal 15-37 [facility] Comment on above: Performed By: #### F T4, VITAD, FETIBC, FERR #### [facility] [address] [place] [address] Dr. Ceiclio Gale Bilirubin [Mass/Vol] 0.5 mg/dL Normal 0.2-1.0 [facility] Comment on above: Performed By: #### F T4, VITAD, FETIBC, FERR #### [facility] [address] [place] [address] Dr. Cecilio Gale Calcium [Mass/Vol] 8.9 mg/dL Normal 8.5-10.1 [facility] Comment on above: Performed By: #### F T4, VITAD, FETIBC, FERR #### [facility] [address] [place] [address] Dr. Cecilio Gale Chloride [Moles/Vol] 93 mmol/L Critically low 98-107 [facility] Comment on above: Performed By: #### F T4, VITAD, FETIBC, FERR #### [facility] [address] [place] [address] Dr. Cecilio Gale CO2 [Moles/Vol] 25.9 mmol/L Normal 21.0-32.0 [facility] Comment on above: Performed By: #### F T4, VITAD, FETIBC, FERR #### [facility] [address] [place] [address] Dr. Cecilio Gale Creatinine [Mass/Vol] 0.68 mg/dL Normal 0.55-1.02 [facility] Comment on above: Performed By: #### F T4, VITAD, FETIBC, FERR #### [facility] [address] [place] [address] Dr. Cecilio Gale EGFR-AF MOLDOVAN >60 Normal >=60 The [facility] Comment on above: Performed By: #### F T4, VITAD, FETIBC, FERR #### [facility] [address] [place] [address] Dr. Cecilio Gale EGFR-NON AF MOLDOVAN >60 Normal >=60 [facility] Comment on above: Performed By: #### F T4, VITAD, FETIBC, FERR #### [facility] [address] [place] [address] Dr. Cecilio Gale Globulin (S) [Mass/Vol] 3.9 g/dL Normal [facility] Comment on above: Performed By: #### F T4, VITAD, FETIBC, FERR #### [facility] [address] [address] [address] Cecilio Gale Glucose [Mass/Vol] 108 mg/dL Critically high 74-106 T [facility] Comment on above: Performed By: #### F T4, VITAD, FETIBC, FERR #### [facility] [address] [place] [address] Dr. Cecilio Gale Potassium [Moles/Vol] 4.0 mmol/L Normal 3.5-5.1 [facility] Comment on above: Performed By: #### F T4, VITAD, FETIBC, FERR #### [facility] [address] [place] [address] Dr. Cecilio Gale Protein [Mass/Vol] 7.9 g/dL Normal 6.4-8.2 [facility] Comment on above: Performed By: #### F T4, VITAD, FETIBC, FERR #### [facility] [address] [place] [address] Dr. Cecilio Gale Sodium [Moles/Vol] 129 mmol/L Critically low 136-145 [facility] Comment on above: Performed By: #### F T4, VITAD, FETIBC, FERR #### [facility] [address] [place] [address] Dr. Cecilio Gale Urea nitrogen [Mass/Vol] 6.0 mg/dL Critically low 7.0-18.0 [facility] Comment on above: Performed By: #### F T4, VITAD, FETIBC, FERR #### [facility] [address] [place] [address] Dr. Cecilio Gale Urea nitrogen/Creatinine [Mass ratio] 8.8 mg/mg Normal [facility] Comment on above: Performed By: #### F T4, VITAD, FETIBC, FERR #### [facility] [address] [place] [address] Dr. Cecilio Gale TSHon 07-08-2022 TSH 0.963 uIU/mL Normal 0.358-3.740 [facility] Comment on above: Performed By: #### F T4, VITAD, FETIBC, FERR #### [facility] [address] [address] [address] Cecilio Gale UA RANDOMon 07-08-2022 Bilirubin Ql (U) Negative Normal NEGATIVE [facility] Comment on above: Performed By: #### F T4, VITAD, FETIBC, FERR #### [facility] [address] [address] [address] Cecilio Gale Clarity (U) CLEAR Normal CLEAR [facility] Comment on above: Performed By: #### F T4, VITAD, FETIBC, FERR #### [facility] [address] [address] [address] Cecilio Gale Color (U) LT. YELLOW Normal YELLOW [facility] Comment on above: Performed By: #### F T4, VITAD, FETIBC, FERR #### [facility] [address] [place] [address] Dr. Cecilio Gale Glucose Ql (U) Negative Normal NEGATIVE [facility] Comment on above: Performed By: #### F T4, VITAD, FETIBC, FERR #### [facility] [address] [address] [address] Cecilio Gale Hemoglobin Ql (U) TRACE-LYSED Abnormal NEGATIVE [facility] Comment on above: Performed By: #### F T4, VITAD, FETIBC, FERR #### [facility] [address] [address] [address] Cecilio Gale Ketones Ql (U) Negative Normal NEGATIVE [facility] Comment on above: Performed By: #### F T4, VITAD, FETIBC, FERR #### [facility] [address] [address] [address] Cecilio Gale LEUKOCYTES Negative Normal NEGATIVE [facility] Comment on above: Performed By: #### F T4, VITAD, FETIBC, FERR #### [facility] [address] [address] [address] Cecilio Gale Nitrite Ql (U) Negative Normal NEGATIVE [facility] Comment on above: Performed By: #### F T4, VITAD, FETIBC, FERR #### [facility] [address] [address] [address] Cecilio Gale pH (U) 7.5 [pH] Normal 5-9 [facility] Comment on above: Performed By: #### F T4, VITAD, FETIBC, FERR #### [facility] [address] [address] [address] Cecilio Gale SPEC GRAVITY <=1.005 Abnormal 1.005-<=1.025 [facility] Comment on above: Performed By: #### F T4, VITAD, FETIBC, FERR #### [facility] [address] [address] [address] Cecilio Gale UA PROTEIN Negative Normal NEGATIVE/ TRACE [facility] Comment on above: Performed By: #### F T4, VITAD, FETIBC, FERR #### [facility] [address] [address] [address] Cecilio Gale Urobilinogen Qn (U) 0.2 {Anita'U}/dL Normal 0.2 - 1. 0 [facility] Comment on above: Performed By: #### F T4, VITAD, FETIBC, FERR #### [facility] [address] [address] [address] Cecilio Gale Vital Signs Date Time Vital Sign Value Performing Clinician Facility 06-07-2024 13:13040 Body height 162.56 cm [facility] 06-07-2024 13:130400 Body mass index (BMI) [Ratio] 35 kg/m2 [facility] 06-07-2024 13:130400 Body weight 92.53 kg [facility] 06-07-2024 13:13-0400 Diastolic blood pressure 82 mm[Hg] [facility] 06-07-2024 13:13-0400 Heart rate 94 /min [facility] 06-07-2024 13:13-0400 SaO2% (BldA) [Mass fraction] 98 % [facility] 06-07-2024 13:130400 Systolic blood pressure 127 mm[Hg] [facility] 05-02-2024 11:100400 Body height 165.1 cm [facility] 05-02-2024 11:10-0400 Body mass index (BMI) [Ratio] 33.8 kg/m2 [facility] 05-02-2024 11:10-0400 Body weight 92.22 kg [facility] 05-02-2024 11:10-0400 Diastolic blood pressure 80 mm[Hg] [facility] 05-02-2024 11:10-0400 Respiratory rate 18 /min [facility] 05-02-2024 11:10-0400 Systolic blood pressure 112 mm[Hg] [facility] 10-27-2023 11:10-0500 Body height 165.1 cm Scotty Ruiz Other [facility] [employer] Other 10-27-2023 11:10-0500 Body mass index (BMI) [Ratio] 36.11 kg/m2 Scotty Ruiz Other [facility] Other 10-27-2023 11:10-0500 Body temperature 98.1 [degF] Scotty Ruiz Other [facility] Other 10-27-2023 11:10-0500 Body weight 98.43 kg Scotty Ruiz Other [facility] Other 10-27-2023 11:10-0500 Diastolic blood pressure 78 mm[Hg] Scotty Ruiz Other [facility] Other 10-27-2023 11:10-0500 Respiratory rate 18 /min Scotty Ruiz Other [facility] Other 10-27-2023 11:10-0500 SaO2% (BldA) [Mass fraction] 97 % Scotty Ruiz Other [facility] Other 10-27-2023 11:10-0500 Systolic blood pressure 120 mm[Hg] Scotty Ruiz Other [facility] Other 07-28-2023 09:50-0400 Body height 165.1 cm Scotty Sara Other [facility] Other 07-28-2023 09:50-0400 Body mass index (BMI) [Ratio] 39.1 kg/m2 Scotty Sara Other [facility] Other 07-28-2023 09:50-0400 Body weight 106.6 kg Scotty Sara Other [facility] Other 07-28-2023 09:50-0400 Diastolic blood pressure 78 mm[Hg] Scotty Brendanmono Other [facility] Other 07-28-2023 09:50-0400 Respiratory rate 18 /min Scotty Brendanmono Other [facility] Other 07-28-2023 09:50-0400 SaO2% (BldA) [Mass fraction] 98 % Scotty Ruiz Other [facility] Other 07-28-2023 09:50-0400 Systolic blood pressure 124 mm[Hg] Scotty Ruiz Other [facility] Other 06-02-2023 13:00-0400 Body height 165.1 cm Rajendra Angulo Other [facility] Other 06-02-2023 13:00-0400 Body mass index (BMI) [Ratio] 42.43 kg/m2 Rajendra Angulo Other [facility] Other 06-02-2023 13:00-0400 Body weight 115.67 kg Rajendra Angulo Other [facility] Other 06-02-2023 13:00-0400 Diastolic blood pressure 78 mm[Hg] Rajendra Angulo Other [facility] Other 06-02-2023 13:00-0400 SaO2% (BldA) [Mass fraction] 97 % Rajendra Angulo Other [facility] Other 06-02-2023 13:00-0400 Systolic blood pressure 119 mm[Hg] Rajendra Angulo Other [facility] Other 01-21-2023 11:50-0400 Body height 165.1 cm Scotty Ruiz Other [facility] Other 01-21-2023 11:50-0400 Body mass index (BMI) [Ratio] 45.92 kg/m2 Scotty Ruiz Other [facility] Other 01-21-2023 11:50-0400 Body temperature 97.7 [degF] Scotty Ruiz Other [facility] Other 01-21-2023 11:50-0400 Body weight 125.19 kg Scotty Ruiz Other [facility] Other 01-21-2023 11:50-0400 Diastolic blood pressure 86 mm[Hg] Scotty Ruiz Other [facility] Other 01-21-2023 11:50-0400 Respiratory rate 18 /min Scotty Ruiz Other [facility] Other 01-21-2023 11:50-0400 SaO2% (BldA) [Mass fraction] 97 % Scotty Ruiz Other [facility] Other 01-21-2023 11:50-0400 Systolic blood pressure 128 mm[Hg] Scotty Ruiz Other [facility] [employer] Other 08-04-2022 15:21-0400 Blood Pressure Location Kerry JONES [facility] 08-04-2022 15:21-0400 Diastolic blood pressure 80 mm[Hg] Kerry EPPERSONL [facility] 08-04-2022 15:21-0400 Heart rate 72 /min Kerry EPPERSONL [facility] 08-04-2022 15:21-0400 Respiratory rate 16 /min Kerry EPPERSONL [facility] 08-04-2022 15:21-0400 Systolic blood pressure 118 mm[Hg] Kerry EPPERSONL [facility] 07-29-2022 11:12-0400 Body height 165.1 cm Ricci Garcia MD Work Phone: [facility] 07-29-2022 11:12-0400 Body temperature 97.11 [degF] Ricci Garcia MD Work Phone: [facility] 07-29-2022 11:12-0400 Body weight 122.97 kg Ricci Garcia MD Work Phone: [facility] 07-29-2022 11:12-0400 Diastolic blood pressure 89 mm[Hg] Ricci Garcia MD Work Phone: [facility] 07-29-2022 11:12-0400 Heart rate 83 /min Ricci Garcia MD Work Phone: [facility] 07-29-2022 11:12-0400 Respiratory rate 16 /min Ricci Garcia MD Work Phone: [facility] 07-29-2022 11:12-0400 SaO2% (BldA) [Mass fraction] 98 % Ricci Garcia MD Work Phone: [facility] 07-29-2022 11:12-0400 Systolic blood pressure 152 mm[Hg] Ricci Garcia MD Work Phone: [facility] 07-14-2022 14:20-0400 Body height 165.1 cm Scotty Ruiz Other [facility] Other 07-14-2022 14:20-0400 Body mass index (BMI) [Ratio] 45.26 kg/m2 Scotty Ruiz Other [facility] Other 07-14-2022 14:20-0400 Body temperature 97.6 [degF] Scotty Ruiz Other [facility] Other 07-14-2022 14:20-0400 Body weight 123.38 kg Scotty Ruiz Other [facility] Other 07-14-2022 14:20-0400 Diastolic blood pressure 82 mm[Hg] Scotty Ruiz Other [facility] Other 07-14-2022 14:20-0400 SaO2% (BldA) [Mass fraction] 97 % Scotty Ruiz Other [facility] Other 07-14-2022 14:20-0400 Systolic blood pressure 132 mm[Hg] Scotty Ruiz Other [facility] Other 06-03-2022 14:00-0400 Body height 165.1 cm Rajendra Angulo Other [facility] Other 06-03-2022 14:00-0400 Body mass index (BMI) [Ratio] 45.26 kg/m2 Rajendra Angulo Other [facility] Other 06-03-2022 14:00-0400 Body temperature 97.3 [degF] Rajendra Salinasno Other [facility] Other 06-03-2022 14:00-0400 Body weight 123.38 kg Rajendra Salinasno Other [facility] Other 06-03-2022 14:00-0400 Diastolic blood pressure 75 mm[Hg] Rajendra Salinasno Other [facility] Other 06-03-2022 14:00-0400 SaO2% (BldA) [Mass fraction] 10 % Rajendra Salinasno Other [facility] Other 06-03-2022 14:00-0400 Systolic blood pressure 113 mm[Hg] Roberthannah Salinasno Other [facility] Other Encounters Encounter Date Encounter Type Care Provider Facility Start: 06-07-2024 End: 06-07-2024 ambulatory [facility] Work Phone: Start: 06-07-2024 End: 06-07-2024 Patient encounter procedure [facility] Work Phone: Start: 05-02-2024 End: 05-02-2024 ambulatory [facility] Work Phone: Start: 05-02-2024 End: 05-02-2024 Patient encounter procedure [facility] Work Phone: Start: 04-26-2024 Non-patient / Non-visit [facility] Work Phone: Start: 04-20-2024 End: 04-20-2024 ambulatory FERMIN ROBLEDO Not Available Start: 12-13-2023 End: 12-13-2023 Phys/qhp telephone evaluation 5-10 min Trevor Wheeler DO Work Phone: [facility] Comment on above: Encounter to discuss test results Start: 11-23-2023 End: 11-23-2023 ambulatory TREVOR WHEELER Not Available Start: 10-27-2023 End: 10-27-2023 ambulatory Scotty Ruiz Other [facility] Other Start: 10-27-2023 Office outpatient vi sit 25 minutes Scotty Ruiz [facility] Start: 08-04-2023 End: 08-04-2023 ambulatory Scotty Ruiz Other [facility] Other Start: 08-04-2023 [facility] Start: 07-28-2023 End: 07-28-2023 ambulatory Scotty Ruiz Other [facility] Other Start: 07-28-2023 Office outpatient vi sit 25 minutes [facility] Start: 07-22-2023 End: 07-22-2023 ambulatory Scotty Ruiz Other [facility] Other Start: 07-22-2023 Telephone encounter Scotty Ruiz [facility] Start: 06-02-2023 Office outpatient vi sit 10 minutes Rajendra Angulo [facility] Start: 06-02-2023 End: 06-02-2023 ambulatory DO Scotty Ruiz Work Phone: [facility] Other Start: 06-02-2023 End: 06-02-2023 Patient encounter procedure DO Scotty Ruiz Work Phone: [facility] Work Phone: Start: 02-09-2023 End: 02-09-2023 ambulatory Scotty Ruiz Other [facility] Other Start: 02-09-2023 Telephone encounter Scotty Ruiz [facility] Start: 01-21-2023 End: 01-21-2023 ambulatory cSotty Ruiz Other [facility] Other Start: 01-21-2023 Encounter for other preprocedural examination Scotty Ruiz [facility] Start: 01-21-2023 Office outpatient vi sit 25 minutes Scotty Ruiz [facility] Start: 01-11-2023 End: 01-12-[address] SCOTTY RUIZ Facility:[facility] Start: 11-30-2022 End: 11-30-2022 ambulatory Scotty Ruiz Other [facility] Other Start: 11-30-2022 Telephone encounter Scotty Ruiz [facility] Start: 10-08-2022 End: 10-09-[address] DOCTOR RANDALL Facility: Start: 09-22-2022 End: 09-23-2022 ambulatory Kerry JONES Facility:[facility] Start: 09-22-2022 End: 09-22-2022 Patient encounter procedure Kerry JONES General Surgery [facility] Start: 09-17-2022 ambulatory Scotty Ruiz Faci lity: [facility] Start: 09-09-2022 End: 09-10-2022 ambulatory Kerry JONES Facility:[id number] Start: 2022 Telephone encounter Janie Avilez [facility] Start: 2022 End: 09-08-[address] KERRY JONES . 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); Disorder of iron metabolism; Family history of hemochromatosis Start: 08-04-2022 End: 08-05-2022 ambulatory Scotty Ruiz Facility:[facility] Start: 08-04-2022 End: 08-04-2022 Patient encounter procedure Kerry JONES General Surgery [facility] Start: 07-29-2022 End: 07-29-2022 Visit (SP) Office Ricci Garcia MD Work Phone: Hematology/Oncology Comment on above: Family history of he mochromatosis (Primary Dx); Disorder of iron metabolism; Hemochromatosis, unspecified hemochromatosis type Start: 07-28-2022 End: 07-28-2022 ambulatory Mahendra Romo Facility:[facility] Start: 07-28-2022 End: 07-28-2022 Patient encounter procedure DO Scotty Ruiz Work Phone: [facility] Start: 07-21-2022 Telephone encounter Scotty CRESPO [facility] Start: 07-21-2022 End: 07-22-[address] SCOTTY RUIZ [facility] Other Start: 07-14-2022 End: 07-14-2022 ambulatory Scotty Ruiz [facility] Other Start: 07-14-2022 Office outpatient vi sit 25 minutes Scotty CRESPO [facility] Start: 07-08-2022 End: 07-09-[address] SCOTTY RUIZ Facility: Start: 07-07-2022 Telephone encounter Scotty CRESPO [facility] Start: 07-07-2022 End: 07-09-2022 ambulatory DO FRANCOMORE [facility] Other Start: 06-03-2022 End: 06-03-2022 ambulatory Rajendra Angulo Other [facility] Other Start: 06-03-2022 Office outpatient vi sit 10 minutes Rajendra Angulo [facility] Start: 06-03-2022 End: 06-03-2022 Patient encounter procedure DO Scotty Ruiz Work Phone: [facility] Start: 09-01-2021 Telephone encounter Scotty Ruiz [facility] [place] Procedures Date Procedure Procedure Detail Performing Clinician Start: 09-09-2022 Colonoscopy Trevor an DO Work Phone: Start: 09-09-2022 Colonoscopy Kerry PRESLEY Start: 07-29-2022 Blood count complete auto&auto difrntl wbc Ricci Garcia MD Work Phone: Closed reduction of fracture of ankle Kerry JONES Craniotomy Kerry JONES Ligation of fallopian tube Rebecca ichelena MOMO Vaginal hysterectomy Kerry JONES Plan of Treatment Date Care Activity Detail Author Start: 09-09-2032 Screening for malign ant neoplasm of colon [facility] Start: 08-21-2025 DIABETES SCREEN DIABETES SCREEN [facility] Start: 07-29-2025 DIABETES SCREEN DIABETES SCREEN [facility] Start: 11-28-2024 End: 11-28-2024 Patient encounter procedure 11/28/2024 1:00 PM EST Office Visit [facility] [address] [place] [address] Trevor Wheeler, DO [address] [place] [address] [facility] Start: 07-29-2022 End: 09-28-2022 HFE gene targeted mutation analysis in Blood or Tissue by Molecular genetics method [facility] Work Phone: Comment on above: Expected: 07/29/2022 , Expires: 09/28/2022 Start: 07-09-2022 Influenza vaccination INFLUENZA (#1) [facility] Start: 04-14-2022 COVID-19 VACCINE (5 - Booster for Pfizer series) COVID-19 VACCINE (5 - Booster for Pfizer series) [facility] Start: 11-08-2021 DEPRESSION ASSESSMENT DEPRESSION ASS ESSMENT [facility] Start: 2011 COLOGUARD (FIT-DNA) COLOGUARD (FIT-D NA) [facility] Start: 2011 Colonoscopy COLONOSCOPY [facility] Start: 2011 COLORECTAL CANCER SCREENING COLORECTAL CANCER SCREENING [facility] Start: [address] COLONOGRAPHY [facility] Start: 2011 FECAL OCCULT BLOOD FECAL OCCULT BLOO D [facility] Start: 2011 LIPID SCREEN LIPID SCREEN [facility] Start: 2011 SIGMOIDOSCOPY SIGMOIDOSCOPY [facility] Start: 2006 Mammography MAMMOGRAM [facility] Start: 2006 Screening for malign ant neoplasm of breast Mammogram [facility] Start: 1996 HPV TESTING HPV TESTING [facility] Start: 1996 Screening for malign ant neoplasm of cervix [facility] Start: 1987 PAP TESTING PAP TESTING [facility] Start: 1987 Screening for malign ant neoplasm of cervix Pap Smear [facility] Start: 1985 Urine microalbumin profile DTAP,TDAP,TD (1 - Tdap) [facility] Start: 1984 HEPATITIS C SCREENING HEPATITIS C WY MARTIN [facility] Start: 1984 HIV SCREENING HIV SCREENING [facility] Start: 1978 Adult depression screening assessment DEPRESSION SCREENING [facility] Start: 1966 HEPATITIS B (1 of 3 - 3-dose series) HEPATITIS B (1 of 3 - 3-dose series) [facility] Start: 1966 Screening for malign ant neoplasm of colon [facility] Bacteria identified in Urine by Culture [facility] Calcium.ionized [Mass/volume] in Serum or Plasma by Ion-selective membrane electrode (ISE) [facility] End: 08-12-2023 CBC W Auto Differential panel - Blood CBC + DIFF Lab Routine 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) Every 3 months for 4 Occurrences starting 08/12/2022 until 08/12/2023 [facility] Work Phone: Comment on above: Every 3 months for 4 Occurrences starting 08/12/2022 until 08/12/2023 End: 08-12-2023 Comprehensive metabolic 2000 panel - Serum or Plasma COMP METABOLIC PANEL Lab Routine 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) Every 3 months for 4 Occurrences starting 08/12/2022 until 08/12/2023 [facility] Work Phone: Comment on above: Every 3 months for 4 Occurrences starting 08/12/2022 until 08/12/2023 Comprehensive metabo lic 2000 panel - Serum or Plasma [facility] End: 08-12-2023 Ferritin [Mass/volume] in Serum or Plasma FERRITIN BLD Lab Routine 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) Every 3 months for 4 Occurrences starting 08/12/2022 until 08/12/2023 [facility] Work Phone: Comment on above: Every 3 months for 4 Occurrences starting 08/12/2022 until 08/12/2023 End: 08-12-2023 Iron and Iron binding capacity panel - Serum or Plasma IRON + TIBC Lab Routine 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) Every 3 months for 4 Occurrences starting 08/12/2022 until 08/12/2023 [facility] Work Phone: Comment on above: Every 3 months for 4 Occurrences starting 08/12/2022 until 08/12/2023 [facility] Immunizations Immunization Date Immunization Notes Care Provider Fa ciliila 08-18-2023 COVID-19 Vaccine Moderna - Documentation Purposes Only Scotty Ruiz Other [facility] 08-18-2023 Flu Shot - Documentation Purposes Only Scotty Ruiz Other [facility] 10-15-2022 influenza, seasonal, injectable Scotty Ruiz Other [facility] 02-17-2022 COVID-19 Vaccine Moderna - Documentation Purposes Only Rajendra Angulo Other [facility] 10-11-2021 COVID-19 Vaccine Pfizer - Documentation Purposes Only Ashishkati Kev Other [facility] 08-05-2021 influenza, seasonal, injectable Scotty Ruiz Other [facility] 08-05-2021 influenza, injectabl e, quadrivalent, preservative free Ricci Garcia MD Work Phone: [facility] 02-07-2021 COVID-19 Vaccine Pfizer - Documentation Purposes Only Scotty Ruiz Other [facility] Comment on above: Reason for Medicatio n: Prophylaxis 01-17-2021 COVID-19 Vaccine Pfizer - Documentation Purposes Only Scotty Ruiz Other [facility] Comment on above: Reason for Medicatio n: Prophylaxis 10-04-2020 zoster vaccine recombinant Scotty Ruiz Other [facility] 08-05-2020 zoster vaccine recombinant Scotty Ruiz Other [facility] 08-05-2020 influenza, seasonal, injectable Scotty Ruiz Other [facility] 08-05-2020 influenza, injectabl e, quadrivalent, preservative free Ricci Garcia MD Work Phone: [facility] 10-17-2019 influenza, seasonal, injectable Scotty Ruiz Other [facility] 10-17-2019 influenza, injectabl e, quadrivalent, contains preservative Ricci Garcia MD Work Phone: [facility] 07-23-2018 influenza, injectabl e, quadrivalent, preservative free Ricci Garcia MD Work Phone: [facility] 07-23-2018 influenza, seasonal, injectable Scotty Ruiz Other [facility] NEGATED: Highlighted row has not occurred!08-04-2022 influenza virus vaccine, unspecified formulation Kerry MOMO [facility] [place] Payers Date Payer Category Payer Self-pay [id number] 2019 Medicare [id number] 1966 Unknown [id number] 2.16.8 40.1.327507.3.579.2.727 1966 Unknown [id number] 2.16.8 40.1.023903.3.579.2.727 1966 Unknown [id number] 2.16.8 40.1.373673.3.579.2.727 1966 Unknown [id number] 2.16.8 40.1.753243.3.579.2.727 1966 Unknown [id number] 2.16.84 0.1.835823.3.579.2.593 1966 Unknown [id number] 2.16.84 0.1.027545.3.579.2.593 1966 Unknown [id number] 2.16.84 0.1.393014.3.579.2.593 1966 Unknown [id number] 2.16.84 0.1.413343.3.579.2.593 1966 Unknown [id number] 2.16.84 0.1.351090.3.579.2.593 1966 Unknown [id number] 2.16.84 0.1.088432.3.579.2.593 1966 Unknown [id number] 2.16.84 0.1.861210.3.579.2.593 1966 Unknown [id number] 2.16.84 0.1.683622.3.579.2.1259 1966 Unknown [id number] 2.16.84 0.1.445728.3.579.2.1259 1958 Medicare [id number] 2.16. [id number] Unknown MMO [id number] Unknown Regular Insurance [id number] Unknown [employer] [id number] Unknown [id number] 2.16.8 40.1.132991.3.579.2.531 Unknown [id number] 2.16.8 40.1.677661.3.579.2.531 Unknown [id number] 2.16.8 40.1.327576.3.579.2.531 Unknown HCAP/HFA/FAP Active [id number] Social History Date Type Detail Facility Unknown if ever smoked [facility] Other Start: 11-02-2023 Sex Assigned At [facility] Other Start: 1965 Sex Assigned At Female [facility] Start: 07-23-2022 End: 05-02-2024 Tobacco smoking status NHIS Never smoked tobacco [facility] History of tobacco use Passive smoker [facility] Start: 07-23-2022 Tobacco use and exposure Smokeless tobacco non-user [facility] Start: 07-29-2022 Alcohol intake Current non-drinker of alcohol (finding) [facility] Start: 1965 Sex Assigned At Not on file [facility] Start: 07-19-2022 End: 08-21-2022 Exposure to SARS-CoV-2 (event) Not sure [facility] Tobacco smoking status Never [facility] Start: 11-23-2023 Alcohol intake Lifetime non-drinker (finding) [facility] Start: 11-02-2023 History of Social function [facility] Start: 11-02-2023 Alcohol Comment caffeine: 2-3 cups per day coffee, soda [facility] Start: 11-16-2023 Gender identity Identifies as female gender (finding) [facility] Start: 11-16-2023 Sexual orientation Heterosexual (finding) [facility] Functional Status Date Assessment Result Facility 08-04-2022 Functional Status N/A [facility] Clinical Notes 09-01-2021 to 05-02-2024 Note Date & Type Note Facility 05-02-2024 Evaluation note Authored May 02, 2024 12:5 3pm The above note written by __ _Jesusita Elliott____ acting as human recorder, note dictated by _Sara .I performed the above HPI, ROS, and Examination. I formulated and dictated the treatment plan and was present for entire encounter. Scotty Ruiz D.O. [facility] Work Phone: 1(494) 904-112602-05-2024 History of Present illness Narrative* Trevor Wheeler DO - 12/13/2023 8:00 AM EST Reason for Appointment: Patient ID: Layton Newton is a 58 y.o. female who presents for Results Patient presents today via telephone call for a telehealth appointment. Patients Phone #: [phone] (mobile) Current Medications: has a current medication [...] of: Trevor Wheeler DO documented in this encounterBates [facility] [id number] Evaluation note* Encounter Date Diagnosis Assessment Notes Treatment Notes Treatment Clinical Notes Oct, Hypothyroidism (ICD- 10 - E03.9) She voices that since her [...] because it is working well. 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 [facility] Other 09-20-2023 Evaluation note* Encounter Date Diagnosis [...] HgA1C is normal at 5.4. 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 [facility] Other 07-26-2023 Evaluation note* Encounter Date Diagnosis Assessment Notes Treatment Notes Treatment Clinical Notes May, LORENA (obstructive sleep apnea) (ICD-10 - G47.33) [facility] Other 03-16-2023 Evaluation note* Encounter Date Diagnosis [...] was 121. Ferritin was 132.0. 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 She is seeing Dr. Collins in [place] in an attempt to have bariatric weight [...] when she had weight loss surgery done. [facility] Other 11-02-2022 NoteOPERATIVE NOTE OPERATION DATE: 09/09/2022 [...] in good condition. CC: Scotty Ruiz D.O.[facility]10-14-2022 NoteHNO ID: [id number] Author: Olesya Rodriguez RN Service: ? Author Type: Registered Nurse Type: Progress Notes Filed: 08/21/2022 4:39 PM Note Text: Pt was checked in for appointment. HGB of 14.3 qualified her for a phlebotomy. However, pt left the building after getting her blood work drawn. PSS called and LVM for pt to reschedule.[facility] 08-21-2022 History of Present illness Narrative* Olesya Rodriguez RN - 08/21/2022 3:24 PM EDT Pt was checked in for appointment. HGB of 14.3 qualified her for a phlebotomy. However, pt left thebuilding after getting her blood work drawn. PSS called and LVM for pt to reschedule. documented in this encounterR[facility]10-05-2022 Instructions* Patient Instructions* Ricci Garcia MD - 08/12/2022 8:43 PM EDT Arrange for phlebotomy 1 unit for Hgb > 13 next week Labs in 3 months RTC 1 week after labs and schedule for possible phlebotomy after clinician. documented in this encounterRiverview Health Institute10-05-2022 NoteHNO ID: [id number] Author: Ricci Garcia MD Service: ? Author Type: Physician Type: Progress Notes Filed: 08/12/2022 8:45 PM Note Text: NAME: Mikey Newton [facility] NO.: [id number] DATE OF SERVICE: August 12, 2022 Some elements in this clinic note that are critical to medical decision making have been carefully reviewed and included from a prior clinic note dated: July 29, 2022 Referring Provider: Scotty Ruiz Additional Clinicians involved in Mikey Newton's care: VIRTUAL VISIT PROGRESS NOTE This is [...] in. Initial Visit, July 29, 2022: Mikey Anderson Newton presents today Hematology and Oncology evaluation. She [...] 07/29/2022 0.4 AST (U/L (more content not included)...[facility]10-05-2022 History of Present illness Narrative* Ricci Garcia MD - 08/12/2022 5:17 PM EDT Images from the original note were not included. NAME: Aman Mikey CLINIC NO.: [id number] DATE OF SERVICE: August 12, 2022 Some elements in this clinic note that are critical to medical decision making have been carefully reviewed and included from a prior clinic note dated: July 29, 2022 Referring Provider: Scotty Ruiz Additional Clinicians involved in Mikey Newton's care: VIRTUAL VISIT PROGRESS NOTE This is [...] in. Initial Visit, July 29, 2022: Mikey Newton presents today Hematology and Oncology evaluation. She [...] CPE Hematology and Oncology Services Provided at: [place], [place] CC: Scotty Ruiz [address] [place] [address] Scotty Ruiz, DO [address] [place] [address] documented in this encounterRiverview Health Institute09-27-2022 NoteChief Complaint consultation for screening colonoscopy HPI [...] 50,000 intl units (1.25 mg) oral capsule, 0[address]18 International_Unit= 1 cap(s), Oral, qWeek Allergies Depakote [...] SARS-CoV-2 (COVID-19) mRNA BNT-162b2 vax 01/17/2021 Given ProphylaxisMercy Health Anderson HospitalComment on above:Result Comment: Electronically Signed By: MOMO CHAND, Kerry Barfield\Date and Time Signed: 08/04/22 15:39 [id number] Note HNO ID: [id number] Author: Ricci Garcia MD Service: ? Author Type: Physician Type: Progress Notes Filed: 07/30/2022 12:33 PM Note Text: NAME: Mikey Newton CLINIC NO.: [id number] DATE OF SERVICE: July 29, 2022 Referring Provider: Scotty Ruiz Consultation requested by Dr. Ruiz for an opinion regarding Ms. Mikey Newton, and my final recommendations will be communicated back to the requesting physician by way of shared medical record or letter via [place] mail. Additional Clinicians involved in Mikey Newton's care: DIAGNOSIS: Elevated iron ASSESSMENT: 56 year [...] JENNIFER/BSO Initial Visit, July 29, 2022: Mikey Newton presents today Hematology and Oncology evaluation. She [...] FAMILY HISTORY Problem Relation (more content not included)...[facility] 07-29-2022 Instructions* Patient Instructions* Ricci Garcia MD - 07/29/2022 11:49 AM EDT HFE and iron labs today Call results in 2 weeks. documented in this encounterRiverview Health Institute09-21-2022 History of Present illness Narrative* Ricci Garcia MD - 07/29/2022 11:00 AM EDT Images from the original note were not included. NAME: Mikey Newton [facility] NO.: [id number] DATE OF SERVICE: July 29, 2022 Referring Provider: Scotty Ruiz Consultation requested by Dr. Ruiz for an opinion regarding Ms. Mikey Newton, and my final recommendations will be communicated back to the requesting physician by way of shared medical record or letter via [place] mail. Additional Clinicians involved in Mikey Newton's care: DIAGNOSIS: Elevated iron ASSESSMENT: 56 year [...] JENNIFER/BSO Initial Visit, July 29, 2022: Mikey Newton presents today Hematology and Oncology evaluation. She [...] which included preparing to see the patient, [id number] patient care, completing clinical documentation, obtaining and/or reviewing separately obtained history, performing a medically appropriate examination, counseling and educating the pat ient/family/caregiver, ordering medications, tests, or procedures, and independently interpreting results (not separately reported). Ricci Garcia MD, CPE Hematology and Oncology Services Provided at: [place], [place] CC: Scotty Ruiz [address] [place] [address] Scotty Ruiz DO [address] [place] [address] documented in this encounterRiverview Health Institute09-06-2022 Evaluation note* Encounter Date Diagnosis Assessment Notes [...] with her Vitamin D supplement. Jul, Other long-term (current) drug therapy (ICD-10 - Z79.899) Jul, [...] advise her that she should see another delimer to determine if she has hemochromatosis or [...] years ago she had an appointment in [place] with a bariatric surgeon and at the time Dr. Wevaer told her that this was fine but [...] colonoscopy, she agrees. A referral is provided. [facility] Other 07-27-2022 Evaluation note* Encounter Date Diagnosis Assessment Notes Treatment Notes Treatment Clinical Notes May, LORENA (obstructive sleep apnea) (ICD-10 - G47.33) [facility] Other 10-25-2021 Evaluation note* Encounter Date Diagnosis Assessment Notes Treatment Notes Treatment Clinical Notes Aug, Hypothyroidism (ICD-10 - E03.9) [facility] Other Evaluation + Plan note No data available for this section [facility] Evaluation noteNo InformationNortGood Shepherd Specialty Hospital [employer] Other Evaluation noteNo assessment information available [facility] Work Phone: Evaluation note* Diagnosis Family history of hemochromatosis- Primary Family history of other endocrine and metabolic diseases Disorder of iron metabolism Other disorders of iron metabolism Hemochromatosis, unspecified hemochromatosis type documented in this encounter [facility] [place] [facility]* Diagnosis 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 Other disorders of iron metabolism Family history of hemochromatosis Family history of other endocrine and metabolic diseases documented in this encounter [facility]* Diagnosis Hereditary hemochromatosis (HCC)- Primary Hereditary hemochromatosis documented in this encounter [facility]* Diagnosis Encounter to discuss test results Other specified counseling [facility]* Diagnosis Onset Date Resolution Status Epilepsy acute Hemochromatosis acute Hyperglycemia acute Hyperlipidemia acute Hypocalcemia acute Hyponatremia acute Hypothyroidism acute Intentional weight loss acut e Vitamin D deficiency acute [facility] Work Phone: Hisvhqs general Narrative - Reported* Type Description Date Medical History Epilepsy-1977; Follow's with Dr. Natalio Weaver Medical History History of [place] Medical History Hemochromotosis Medical History Dr. Mckeon, jabari's patient's pap's and pelvics Medical History Patient states that she get's her Medical Equipment from [employer] Medical History LORENA (obstructive sleep apnea) Medical History Refuses Colonoscopy 02-08-17 Surgical History Brain Surgery 1988 Surgical History Tubal Ligation 1992 Surgical History Hysterectomy 2003 Hospitalization History Brain Surgery 1988 Hospitalization History Tubal Ligation 1991 Hospitalization History Hysterectomy 2003 [facility] Other history general Narrative - Reported* Type Description Date Medical History Epilepsy-1977; Follow's with Dr. Natalio Weaver Medical History History of [place] Medical History Hemochromotosis Medical History Dr. Mckeon, jabari's patient's pap's and pelvics Medical History Patient states that she get's her Medical Equipment from [employer] Medical History LORENA (obstructive sleep apnea) Medical History Refuses Colonoscopy 02-08-17 Medical History gallstones Surgical History Brain Surgery 1988 Surgical History Tubal Ligation 1991 Surgical History Hysterectomy 2004 Surgical History Colonoscopy - Dr. Jones / sigmoi d polyp 09/25/22 Hospitalization History Brain Surgery 1988 Hospitalization History Tubal Ligation 1991 Hospitalization History Hysterectomy 2003 [facility] Other History general Narrative - Reported* Type Description Date Medical History Epilepsy-1977; Follow's with Dr. Natalio Weaver Medical History History of [place] Medical History Hemochromotosis Medical History Dr. Mckeon, perform's patient's pap's and pelvics Medical History Patient states that she get's her Medical Equipment from [facility] Medical History LORENA (obstructive sleep [...] Tubal Ligation 1991 Hospitalization History Hysterectomy 2003 [facility] Other Hospital Discharge instructions No data available for this section [facility] Progress note No data available for this section [facility] Reason for visit Narrativereview labs/medical clearance for bariatric surgeryN[facility] Other Chief Complaint and Reason for Visit Chief Complaint Sleep apnea annual f ollow up Chief Complaint Sleep apnea annual f ollow up Cognitive Disability Chief Complaint Cognitive Disability Chief Complaint Obstructive sleep ap ricardo Chief Complaint review labs Reason for Visit Epilepsy Hemochromatosis Hyperglycemia Hyperlipidemia Hypocalcemia Hyponatremia Hypothyroidism Intentional weight loss Vitamin D deficiency Chief Complaint review labs LORENA/ANNUAL Reason for Visit Epilepsy Hemochromatosis Hyperglycemia Hyperlipidemia Hypocalcemia Hyponatremia Hypothyroidism Intentional weight loss Vitamin D deficiency LORENA (obstructive sleep apnea) Advance Directives Advance Directive Response Recorded Date/ Time Advance Directives No January 26 1:08pm Advance Directive Response Recorded Date/ Time Advance Directives No January 26 12:08pm Reason for Referral Reason appt pt needs scre ening colonoscopy Diagnosis 1 Encounter for screen ing colonoscopy (Z12.11) Referral Organization [facility] Referring Provider First Name Scotty Referring Provider Last Name Sara Referring Provider Specialty Family Prac marcy Referred Organization [facility] Referred Provider Kerry Jones Referred Address ,[place], [place],[address] Referred Provider Specialty Surgery Referral Priority Routine General Notes Luh Giraldo 07/14/2022 02:16:50 PM > referral faxed with visit note and insurance card. pt understands she will be contacted to schedule this appt. Reason appt pt is marcela breaux to see whomever can see her first pt needs consult to discuss official dx of hemochromatosis Diagnosis 1 Hemochromatosis (E83 .119) Referral Organization [facility] Referring Provider First Name Scotty Referring Provider Last Name Sara Referring Provider Specialty Family Prac marcy Referred Organization [facility] Referred Provider Ricci Garcia Referred Address [address] [place], [place],[address] Referred Provider Specialty Hematology/O ncology Referral Priority Routine General Notes Luh Giraldo 07/14/2022 02:25:54 PM > referral faxed with visit note, lab results and insurance card. pt understands she will be contacted to schedule this appt. Summary Purpose Family History Relationship Condition Age at Onset Recorded Date/T stephen grandparent Unknown Malignant neoplasm Unknown Alzheimer's disease Unknown Not Specified History of stroke Unknown Relationship Condition Age at Onset Recorded Date/T stephen grandparent Unknown Malignant neoplasm Unknown Alzheimer's disease Unknown mother History of stroke Unknown Additional Source Comments REASON FOR VISIT (unrecogniz ed section and content) Reason Comments Hemachromatosis New patient consult Reason Comments Established Patient Reason Comments Results Care Teams (unrecognized sec tion and content) Team Status: Active Member Role Status Dates Scotty Ruiz DO Primary Care Provider Active Team Status: Active Member Role Status Dates Scotty Ruiz DO Primary Care Provide r, Attending Provider Active Start: April 26, 2024 Team Status: Inactive Member Role Status Dates Scotty Ruiz DO Primary Care Provide r, Attending Provider Active Start: May 02, 2024 End: May 02, 2024 Team Status: Inactive Member Role Status Dates Scotty Ruiz DO Primary Care Provider Active Rajendra Angulo MD Attending Provider Active Team Status: Inactive Member Role Status Dates Scotty Ruiz DO Primary Care Provider Active Mahendra Romo , PhD Attending Provider Active Corrections Lieutenant Relationship Specialty Start Date End Date Vincent Aguilar [address] [place] [id number] PCP - General Neurology 07/29/22 Corrections Lieutenant Relationship Specialty Start Date End Date Vincent Aguilar [address] [place] [address] PCP - General Neurology 07/29/22 Corrections Lieutenant Relationship Specialty Start Date End Date Scotty Ruiz MD [address] [place] [address] PCP - General Family Medicine 11/23/23 Team Status: Inactive Member Role Status Dates Scotty Ruiz DO Primary Care Provider Active S tart: June 07, 2024 End: June 07, 2024 Rajendra Angulo MD Attending Provider Active Start: June 07, 2024 End: June 07, 2024 Goals (unrecognized section and content) Goals may be documented in a n alternate section Source Comments (unrecognize d section and content) In the event this informatio n is protected by the Federal Confidentiality of Alcohol and Drug Abuse Patient Records regulations: The Federal rules restrict any use of the information to criminally investigate or prosecute any alcohol or drug abuse patient.[facility] the event this information is protected by the Federal Confidentiality of Alcohol and Drug Abuse Patient Records regulations: The Federal rules restrict any use of the information to criminally investigate or prosecute any alcohol or drug abuse patient.[facility] the event this information is protected by the Federal Confidentiality of Alcohol and Drug Abuse Patient Records regulations: The Federal rules restrict any use of the information to criminally investigate or prosecute any alcohol or drug abuse patient.[facility] INFORMATION SOURCE (unrecogn ized section and content) DATE CREATED AUTHOR 08/30/2022 [facility] DATE CREATED AUTHOR AUTHOR'S ORGANIZ ATION 09/27/2022 [facility] DATE CREATED AUTHOR AUTHOR'S ORGANIZ ATION 01/13/2023 [facility] DATE CREATED AUTHOR AUTHOR'S ORGANIZ ATION 06/04/2023 [facility] DATE CREATED AUTHOR AUTHOR'S ORGANIZ ATION 04/22/2024 [facility] FOR RECORDS PERTAINING [...] BE BASED ON THE PRIMARY CLINICAL RECORDS. [facility]. provides no warranty or guarantee of the accuracy or completeness of information in this document.
--- NOTE | 2024-06-29 13:41 | ED.ABDPAIN1 ---
HPI - Abdominal Pain General Chief Complaint: Abdominal Pain Stated Complaint: RIGHT SIDE PAIN Time Seen by Provider: 06/29/24 13:25 Source: patient Mode of arrival: walk-in Limitations: no limitations History of Present Illness HPI narrative: Patient is a 58-year-old female who presents to the emergency department for the evaluation of right upper quadrant abdominal pain for the last 2 days. She states her PCP office referred her to the emergency department. She had bariatric surgery 1 year ago and states she was told she had gallstones at that time. She did not have any issues with her gallbladder so it was never removed. She denies objective fevers, vomiting. She states she did have some diarrhea today. Pain is in the right upper quadrant without radiation. She states she is eating and drinking without difficulty. She states she does seem to be urinating more frequently but has not noticed any blood in her urine or burning. No medications taken prior to arrival. She drove herself to the ER. Related Data Previous Rx's ?Medication ?Instructions ?Recorded hyoscyamine sulfate 0.125 mg 0.125 mg PO Q6H PRN abdominal pain 06/29/24 tablet (Levsin) #12 tabs ondansetron 4 mg disintegrating 4 mg PO Q6H PRN nausea and 06/29/24 tablet vomiting #12 tabs oxycodone-acetaminophen 5 mg-325 1 tab PO Q6H PRN pain 3 days #10 06/29/24 mg tablet (Percocet) tabs Allergies Allergy/AdvReac Type Severity Reaction Status Date / Time Penicillins Allergy Severe Rash Verified 06/29/24 13:26 phenobarbital AdvReac Severe Confusion Verified 06/29/24 13:26 Review of Systems ROS Constitutional Denies: fever or chills Ears, nose, mouth, and throat Denies: throat pain or nasal congestion Cardiovascular Denies: chest pain Respiratory Denies: shortness of breath or cough Gastrointestinal Reports: abdominal pain and diarrhea; Denies: nausea or vomiting Genitourinary Denies: painful urination Musculoskeletal Denies: back pain or neck pain Integumentary/Breast Denies: rash Neurological Denies: headache Hematologic/Lymphatic Denies: easy bruising or easy bleeding Exam Narrative Exam Narrative: Gen.: Awake, alert, in no distress Head: Normocephalic, atraumatic ENT: Moist mucous membranes Respiratory: No respiratory distress Gastrointestinal: Abdomen is soft, nondistended and mildly tender in the right upper quadrant with no guarding or rebound Extremities: Moves extremities equally Psych: Normal mood and affect Neuro: No focal neuro deficit Skin: Warm, dry, intact Constitutional Vital Signs, click to edit/add: Last Vital Signs Temp 97.5 F L 06/29/24 13:26 Pulse 80 06/29/24 15:02 Resp 16 06/29/24 15:02 BP 113/73 06/29/24 15:02 Pulse Ox 98 06/29/24 15:02 O2 Del Method Room Air 06/29/24 13:26 Course Vital Signs Vital signs: Vital Signs Temperature 97.5 F L 06/29/24 13:26 Pulse Rate 93 H 06/29/24 13:26 Respiratory Rate 20 06/29/24 13:26 Blood Pressure 125/83 06/29/24 13:26 Pulse Oximetry 99 06/29/24 13:26 Oxygen Delivery Method Room Air 06/29/24 13:26 Temperature 97.5 F L 06/29/24 13:26 Pulse Rate 80 06/29/24 15:02 Respiratory Rate 16 06/29/24 15:02 Blood Pressure 113/73 06/29/24 15:02 Pulse Oximetry 98 06/29/24 15:02 Oxygen Delivery Method Room Air 06/29/24 13:26 MDM - Abdominal Pain MDM Narrative Medical decision making narrative: Abdominal exam is benign in the ER, lab studies are stable for this patient, she has chronic mild hyponatremia and chronic elevation of alk phos which is better today. The remainder of her LFTs and lipase are within normal limits. CT shows gallstones in the gallbladder with no cholecystitis. Patient in no distress on reevaluation by attending physician, suspect biliary colic is the source of her pain. She is given general surgery follow-up, a short course of analgesics and Levsin with Zofran. Follow-up with general surgery and PCP and return to the ER if symptoms change or worsen SHARED APC VISIT, PHYSICIAN ATTESTATION: [id number] I performed a substantive part of the MDM during the patient?s E/M visit. I personally evaluated and examined the patient. I personally made or approved the documented management plan and acknowledge its risk of complications. Medical Records Attestation: I reviewed the patient's medical records. Lab Data Attestation: I reviewed the patient's lab results. Labs: Lab Results 06/29/24 06/29/24 Range/Units 14:00 15:01 WBC 5.9 (4.0-11.0) 10^3/uL RBC 4.36 (4.20-5.40) 10^6/uL Hgb 14.8 (12.0-16.0) g/dL Hct 41.3 (36.0-48.0) % MCV 94.7 (81.0-99.0) fL MCH 33.9 (26.7-34.0) pg MCHC 35.8 H (29.9-35.2) g/dL RDW 11.9 (11.0-15.0) % Plt Count 310 (150-450) 10^3/uL MPV 8.7 L (9.5-13.5) fL Neut % (Auto) 54.3 (43.0-75.0) % Lymph % (Auto) 32.8 (20.5-60.0) % [place] % (Auto) 10.3 (1.7-12.0) % Eos % (Auto) 1.9 (0.9-7.0) % Baso % (Auto) 0.5 (0.2-2.0) % Neut # (Auto) 3.2 (1.4-6.5) 10^3/uL Lymph # (Auto) 1.9 (1.2-3.8) 10^3/uL [place] # (Auto) 0.6 (0.3-0.8) 10^3/uL Eos # (Auto) 0.1 (0.0-0.7) 10^3/uL Baso # (Auto) 0.0 (0.0-0.1) 10^3/uL Abs Immat Gran (auto) 0.01 (0.00-0.03) 10^3/uL Imm/Tot Granulo (auto) 0.2 (0.0-0.5) % PT 10.9 (9.0-11.6) sec INR 1.03 Sodium 129 L (136-145) mmol/L Potassium 3.9 (3.5-5.1) mmol/L Chloride 94 L (98-107) mmol/L Carbon Dioxide 26.3 (21.0-32.0) mmol/L Anion Gap 12.6 BUN 14.0 (7.0-18.0) mg/dL Creatinine 0.76 (0.55-1.02) mg/dL Est GFR ( Amer) >60 (>=60) Est GFR (Non-Af Amer) >60 (>=60) BUN/Creatinine Ratio 18.4 Glucose 99 (74-106) mg/dL Lactate 2.6 H* (0.4-2.0) mmol/L Calcium 9.0 (8.5-10.1) mg/dL Total Bilirubin 0.5 (0.2-1.0) mg/dL AST 25 (15-37) U/L ALT 24 (14-59) U/L Alkaline Phosphatase 124 H (46-116) U/L Troponin I High Sens <4.0 L (4.0-51.3) pg/mL Total Protein 7.5 (6.4-8.2) g/dL Albumin 3.8 (3.4-5.0) g/dL Globulin 3.7 g/dL Albumin/Globulin Ratio 1.0 Lipase 52.0 (16.0-77.0) U/L Urine Color Lt. yellow (YELLOW) Urine Clarity Clear (CLEAR) Urine pH 7.0 (5.0-9.0) Ur Specific [place] <=1.005 A (1.005-1.025) Urine Protein Negative (NEG/TRACE) mg/dL Urine Glucose (UA) Negative (NEGATIVE) mg/dL Urine Ketones Negative (NEGATIVE) mg/dL Urine Occult Blood Negative (NEGATIVE) Urine Nitrite Negative (NEGATIVE) Urine Bilirubin Negative (NEGATIVE) Urine Urobilinogen 0.2 (0.2-1.0) EU/dL Ur Leukocyte Esterase Negative (NEGATIVE) Imaging Data CT scan - abdomen: Attestation: I have reviewed the pertinent imaging results. Radiologist's impression: ITS Impressions Abdomen/Pelvis CT 06/29/24 14:43 IMPRESSION: 1. Cholelithiasis. No CT evidence of acute cholecystitis. 2. Prior gastric surgery. No acute or suspicious bowel findings. 3. Nonobstructing nephrolithiasis. 4. No acute or specific findings to account for patient's symptoms. Electronically authenticated by: MICHAEL SHARPE Date: 06/29/2024 15:03 ECG Data Attestation: I personally reviewed and interpreted this ECG as follows: (Normal sinus rhythm at a rate of 78, no acute ST elevation or ectopy. EKG reviewed by attending physician) Discharge Plan Discharge Stand Alone Forms: Work/School Release, Portal Instructions Chief Complaint: Abdominal Pain Clinical Impression: Abdominal pain, Biliary colic, Cholelithiasis Patient Disposition: Home, Self-Care Time of Disposition Decision: 15:24 Condition: Good Prescriptions / Home Meds: New oxycodone-acetaminophen [Percocet] 5-325 mg tablet 1 tab PO Q6H PRN (Reason: pain) 3 Days Qty: 10 0RF Rx Instructions: DX: R10.9 hyoscyamine sulfate [Levsin] 0.125 mg tablet 0.125 mg PO Q6H PRN (Reason: abdominal pain) Qty: 12 0RF ondansetron 4 mg tablet,disintegrating 4 mg PO Q6H PRN (Reason: nausea and vomiting) Qty: 12 0RF Print Language: French Instructions: Biliary Colic (ED), Gallstones (ED), Acute Abdominal Pain (ED) Referrals: PRAVEEN CANELA [Physician] - As needed SCOTTY RUIZ [Primary Care Provider] - 1 week Toñito Nichols DO [Physician] - As needed
[2024-06-29 14:06] LABS: Basophils Percent Auto 0.5 % (0.2-2.0); Eosinophils Absolute Auto 0.1 10^3/uL (0.0-0.7); Eosinophils Percent Auto 1.9 % (0.9-7.0); Hematocrit 41.3 % (36.0-48.0); Hemoglobin 14.8 g/dL (12.0-16.0); Immature Granulocytes Abs Auto 0.01 10^3/uL (0.00-0.03); Immature Granulocytes Pct Auto 0.2 % (0.0-0.5); Lymphocytes Absolute Auto 1.9 10^3/uL (1.2-3.8); Lymphocytes Percent Auto 32.8 % (20.5-60.0); Mean Corpuscular HGB Conc 35.8 g/dL (29.9-35.2); Mean Corpuscular Hemoglobin 33.9 pg (26.7-34.0); Mean Corpuscular Volume 94.7 fL (81.0-99.0); Mean Platelet Volume 8.7 fL (9.5-13.5); Monocytes Absolute Auto 0.6 10^3/uL (0.3-0.8); Monocytes Percent Auto 10.3 % (1.7-12.0); Neutrophils Absolute Auto 3.2 10^3/uL (1.4-6.5); Neutrophils Percent Auto 54.3 % (43.0-75.0); Platelet Count 310 10^3/uL (150-450); Red Blood Count 4.36 10^6/uL (4.20-5.40); Red Cell Distribution Width 11.9 % (11.0-15.0); White Blood Count 5.9 10^3/uL (4.0-11.0)
[2024-06-29] MEDS: ONDANSETRON PF 4 MG/2 ML VIAL IV (14:11)
[2024-06-29] MEDS: HYOSCYAMINE SULFATE 0.125 MG TAB.SUBL SL (14:11)
[2024-06-29] MEDS: PANTOPRAZOLE SODIUM 40 MG VIAL IV (14:11)
[2024-06-29] MEDS: 0.9 % SODIUM CHLORIDE 1,000 ML 999 ML IV (14:11)
[2024-06-29 14:20] LABS: INR 1.03; Prothrombin Time 10.9 sec (9.0-11.6)
[2024-06-29 14:22] VITALS: PULSE 78
[2024-06-29 14:25] LABS: Anion Gap 12.6
[2024-06-29 14:28] LABS: Alanine Aminotransferase 24 U/L (14-59); Albumin Level 3.8 g/dL (3.4-5.0); Alkaline Phosphatase 124 U/L (46-116); Aspartate Amino Transferase 25 U/L (15-37); BUN Creatinine Ratio 18.4; Bilirubin Total 0.5 mg/dL (0.2-1.0); Carbon Dioxide 26.3 mmol/L (21.0-32.0); Chloride 94 mmol/L (98-107); Estimated GFR (African America >60 (>=60); Estimated GFR (Non-African Ame >60 (>=60); Globulin 3.7 g/dL; Glucose 99 mg/dL (74-106); Potassium 3.9 mmol/L (3.5-5.1); Sodium 129 mmol/L (136-145); Total Protein 7.5 g/dL (6.4-8.2); Troponin I High Sensitivity <4.0 pg/mL (4.0-51.3)
[2024-06-29 14:33] LABS: Lactate/Lactic Acid 2.6 mmol/L (0.4-2.0)
--- NOTE | 2024-06-29 14:43 | CT_ITS ---
[address] [address] Patient Name: MIKEY MONTEZ MRN: [id number] date: 1965 Sex: F Assigned Patient Location: ER Current Patient Location: Accession/Order Number: [id number] Exam Date: 06/29/2024 14:34 Report Date: 06/29/2024 15:03 At the request of: RG ACEVEDO Procedure: CT abdomen pelvis w con EXAMINATION: CT abdomen pelvis w con HISTORY: Right upper quadrant abdominal pain COMPARISON: No relevant comparison available. TECHNIQUE: Axial, Coronal, and Sagittal images were obtained without and/or with IV contrast as indicated by examination type. Dose reduction techniques were achieved by using automated exposure control and/or adjustment of mA and/or kV according to patient size and/or use of iterative reconstruction technique. FINDINGS: LUNG BASES: No visible pulmonary or pleural disease. LIVER: No enlargement, atrophy, suspicious density, or significant focal lesion. BILIARY: Several 1 cm stones within noninflamed gallbladder. PANCREAS: No lesion, fluid collection, or abnormal duct dilatation. SPLEEN: No enlargement or focal lesion. ADRENALS: No mass or enlargement. KIDNEYS: A few tiny nonobstructing stones within kidneys. Unremarkable ureters. BOWEL/MESENTERY: Prior gastric surgery. No visible mass, obstruction, or bowel wall thickening. AORTA/VASCULAR: No aneurysm or dissection. RETROPERITONEUM: No mass or adenopathy. LYMPH NODES: No adenopathy. URINARY BLADDER: No visible focal wall thickening, lesion, or calculus. PELVIC ORGANS: Hysterectomy. ABDOMINAL WALL: No mass or hernia. BONES: No bony lesion or fracture. OTHER: Negative. CT/CT abdomen pelvis w con IMPRESSION: 1. Cholelithiasis. No CT evidence of acute cholecystitis. 2. Prior gastric surgery. No acute or suspicious bowel findings. 3. Nonobstructing nephrolithiasis. 4. No acute or specific findings to account for patient's symptoms. Electronically authenticated by: MICHAEL SHARPE Date: 06/29/2024 15:03
[2024-06-29 14:47] VITALS: PULSE 89
[2024-06-29 15:00] VITALS: PULSE 82; O2SAT 97
[2024-06-29 15:02] VITALS: BP 113/73; PULSE 80; O2SAT 98
[2024-06-29 15:07] LABS: Bilirubin Urine NEGATIVE (NEGATIVE); Blood Urine NEGATIVE (NEGATIVE); Clarity Urine CLEAR (CLEAR); Color Urine LT. YELLOW (YELLOW); Glucose Urine UA NEGATIVE (NEGATIVE); Ketones Urine NEGATIVE (NEGATIVE); Leukocyte Esterase Urine NEGATIVE (NEGATIVE); Nitrite Urine NEGATIVE (NEGATIVE); Protein Urine NEGATIVE (NEG/TRACE); Specific Gravity Urine <=1.005 (1.005-1.025); Urobilinogen Urine 0.2 EU/dL (0.2-1.0)
[2024-06-29 15:09] LABS: Urine Microscopic Indicated NO
[2024-06-29 15:30] VITALS: BP 110/70; PULSE 77; O2SAT 99
== END 2024-06-29 15:41 | disposition home or self-care (01) ==
PROVIDERS: Physician Assistant; Emergency Provider Emergency Medicine; PCP Family Medicine
DX: K80.70 Calculus of gallbladder and bile duct without cholecystitis without obstruction (principal); R10.9 Unspecified abdominal pain; Z98.84 Bariatric surgery status
CPT/HCPCS: 36415; 74177; 80053; 81003; 83605; 83690; 84484; 85025; 85610; 93005; 96374; 96375; 99285; J2405; Q9967

== ENCOUNTER 2024-07-14 09:19 | Outpatient (OUT) | payer MEDICARE, SELFPAY ==
[2024-07-14 11:12] LABS: Free T4 0.85 ng/dL (0.76-1.46)
[2024-07-14 11:20] LABS: Phosphorus 3.3 mg/dL (2.6-4.7); Thyroid Stimulating Hormone 2.233 uIU/mL (0.358-3.740)
[2024-07-15 13:08] LABS: PTH, Intact 42 pg/mL (15-65)
[2024-07-18 12:09] LABS: Calcium, Ionized, Serum 4.8 mg/dL (4.5-5.6)
== END 2024-07-14 09:20 | disposition home or self-care (01) ==
LOC: LAB 09:21
PROVIDERS: PCP Family Medicine; Visit Provider Family Medicine
DX: E83.51 Hypocalcemia (principal); E03.9 Hypothyroidism, unspecified
CPT/HCPCS: 36415; 82330; 83970; 84100; 84439; 84443; 84481

== ENCOUNTER 2024-08-07 09:47 | Outpatient (OUT) | payer MEDICARE, SELFPAY ==
--- NOTE | 2024-08-07 09:54 | MM_ITS ---
Patient Name: MIKEY MONTEZ MR#: [id number] : 1965 Exam Date: 08/07/2024 Ordering Doctor: DR SCOTTY RUIZ RADIOLOGY REPORT PROCEDURE: MM TOMOSYNTHESIS SCREENING BI COMPARISON: MM TOMOSYNTHESIS SCREENING BI, 08/04/2023. MG MAMM SCREEN 3D ELENA CAD, 06/02/2021. MG MAMM SCREEN ELENA W CAD, 05/28/2020. MG MAMM ELENA SCRN W CAD DIG, 02/23/2014. INDICATIONS: Screening Calculator Name NCI Breast Cancer Risk Assessment Tool 5 Year Breast Cancer Risk 1.40% Lifetime Breast Cancer Risk 8.70% Personal Breast Cancer No Personal Ovarian Cancer No Treatments None Family Cancers Grandfather-maternal with lung cancer at age 35. LOCATION: [facility] BREAST COMPOSITION: The breasts are almost entirely fatty. FINDINGS: DIAGNOSTIC CATEGORY 1--NEGATIVE. RIGHT BREAST: No significant suspicious finding. No significant change has occurred. LEFT BREAST: No significant suspicious finding. No significant change has occurred. RECOMMENDATIONS: ROUTINE MAMMOGRAM AND CLINICAL EVALUATION IN 12 MONTHS. PLEASE NOTE: A NORMAL MAMMOGRAM DOES NOT EXCLUDE THE POSSIBILITY OF BREAST CANCER. A CLINICALLY SUSPICIOUS PALPABLE LUMP SHOULD BE BIOPSIED. Dictated by: Tom Stiles M.D. on 08/07/2024 at 16:30 Approved by: Tom Stiles M.D. on 08/07/2024 at 16:31
--- OUTSIDE RECORDS SUMMARY | 2024-08-07 09:57 | XMS_ITS | CCD ---
Author Organization [facility] Care Team Providers Care [employer] Admin Name Role Phone Scotty Ruiz Unavailable Rajendra Angulo Unavailable [phone] DO Scotty Ruiz Primary Care Provider [phone] MD Rajendra Angulo Attending Provider [phone] Clarissa, PhD Mahendra Attending Provider Vincent Aguilar Primary Care Provider Scotty Ruiz Primary Care Physician [phone] SCOTTY RUIZ Referring Unavailable SCOTTY RUIZ Primary [...] Unavailable Scotty Ruiz MD Primary Care Provider TREVOR WHEELER Attending Unavailable FERMIN ROBLEDO Attending Unavailable Allergies Allergy Classification Reported Allergen(s) Allergy Type Date of Onset Reaction(s) Facility (14 sources) Penicillin V Drug Allergy rash [facility] Other (17 sources) Valproate; Translations: [divalproex sodium] Drug Allergy [facility] (4 sources) Penicillins; Translations: [PENICILLINS] Propensity to adverse reactions 03-13-20 [facility] (10 sources) PHENobarbital; Translations: [phenobarbital] Drug Allergy 03-13-20 08 Other (qualifier value), Other, Rash [facility] (4 sources) Penicillin; Translations: [penicillin] Drug Allergy Eruption of skin (disorder) [facility] (2 sources) Valproate; Translations: [Depakote] Drug Allergy [facility] (1 source) benzoin resin Drug Allergy [facility] (1 source) Penicillins Drug allergy (disorder) 08-13-20 15 [facility] (1 source) Phenytoin Drug Allergy [facility] (1 source) Unable to Assess Drug allergy (disorder) 09-19-20 [facility] Repository (2 sources) Penicillins Drug Intolerance 03-13-20 08 Rash, Unknown [facility] (2 sources) Valproate Drug Allergy 11-08-18 80 [facility] Healthcare Medications Current Medications Medication Drug Class(es) Dates Sig (Normalized) Sig (Original) calcium carbonate 1500 mg / cholecalciferol 200 unt oral tablet (17 sources) Vitamin D Start: 05-01-2024 take 1 [...] carBAMazepine 300 mg extended release oral capsule (19 sources) Mood Stabilizer Start: 05-01-2024 take 300 [...] capsule (20 sources) Provitamin D2 Compound Start: 07-26-20 take 1250 ug by mouth every week Ergocalciferol (Vitamin D2) Active 1250 MCG PO every week July 26, 2024 2:11pm Start: 05-02-2024 End: 07-26-2024 take 1250 ug by mouth every other week Ergocalciferol (Vitamin D2) Discontinued 1250 MCG PO .COMPLEX May 02, 2024 11:45am July 26, 2024 2:11pm 1,250 mcg orally every other week; Start: 05-01-2024 End: 05-02-2024 take 1250 ug by mouth every week Ergocalciferol (Vitamin D2) Discontinued 1250 MCG PO every week May 01, 2024 12:00am May 02, 2024 11:46am Start: 10-28-2023 ergocalciferol (Vitamin D2) 1.25 MG (81566 UT) capsule Start: 08-07-2016 VITAMIN D 50,0 00 unit capsule take 1 capsule by mo ut every week Vitamin D (Ergocalciferol) 06042 UNIT TAKE 1 CAPSULE BY MOUTH ONCE A WEEK for 90 days Active take 1 capsule by mo ut every week Vitamin D (Ergocalciferol) 76281 UNIT TAKE 1 CAPSULE BY MOUTH ONCE [...] 12:00am Start: 07-27-2022 take 1 tablet by mariana twice daily Vimpat 200 mg oral tablet 200 mg = 1 tab(s), Oral, BID, Refills(s) 0 Start Date: 07/27/22 Status: Ordered take 3 tablets by mo [facility] in the morning lacosamide (Vimpat) 50 MG [...] Start: 02-06-2021 take 1 tablet by mariana th twice daily Keppra 1000 mg oral tablet 1,000 mg = 1 tab(s), Oral, BID, Refills(s) 0 Start Date: 07/27/22 Status: Ordered levothyroxine sodium 0.025 mg oral tablet (20 sources) l-Thyroxine Start: 05-02-2024 take 25 ug by mouth once daily in the morning Levothyroxine Active 25 MCG PO Daily May 02, 2024 12:00am take first thing [...] one(1) tablet d aily. Vitamin D (Ergocalciferol) 75504 UNIT (1 source) take 1 capsule by mouth every week Vitamin D (Ergocalciferol) 97462 UNIT TAKE 1 CAPSULE BY MOUTH ONCE A WEEK Active Completed/Discontinued Medications Medication Drug Class(es) Dates Sig (Normalized) Sig (Original) calcium phosphate dibas/vit D3 (VITAMIN D, WITH CALCIUM, ORAL) (3 sources) Start: 01-07-2016 calcium phosphate dibas/vit D3 (VITAMIN D, WITH CALCIUM, ORAL) estrogens, conjugated (mcc) 0.625 mg oral tablet (3 sources) Estrogen Start: 09-15-2016 PREMARIN 0.625 mg tablet folic acid 0.4 mg oral tablet (20 sources) Start: 05-01-2024 End: 05-02-2024 take 400 ug by mouth once daily Folic Acid Discontinued 400 MCG PO Daily May 01, 2024 12:00am May 02, 2024 11:44am Start: 07-27-2022 take 1 tablet by mariana th once daily folic acid 0.4 mg Tab [...] omeprazole 20 mg delayed release oral capsule (8 sources) Proton Pump Inhibitor Start: 05-01-2024 End: 05-02-2024 take 1 capsule by mouth once daily Omeprazole Discontinued 20 MG PO Daily May 01, 2024 12:00am May 02, 2024 11:45am 1 capsule 30 minutes before morning meal Orally Once a day; Start: 06-23-2023 omeprazole (Pr iLOSEC) [address] capsule ursodiol 300 mg oral capsule (8 sources) Bile Acid Start: 05-01-2024 End: 05-02-2024 [...] test findings] 12-08-2023 Episodic Biliary tract disease (9 sources) Gallstone; Translations: [Calculus of gallbladder without cholecystitis without obstruction] Episodic Calculus of urinary tract (2 sources) Kidney stone; Translations: [Calculus of kidney] 07-26-2024 Episodic Diabetes mellitus without complication (11 sources) Hyperglycemia, unspecified; Translations: [Hyperglycemia] Onset: 07-14-2022 [...] Resolved: 07-14-2022 Chronic Fluid and electrolyte disorders (11 sources) Hypo-osmolality and hyponatremia; Translations: [Hypokalemia] Onset: 07-14-2022 Resolved: 07-14-2022 Episodic Genitourinary symptoms and ill-defined conditions (11 sources) Hematuria, unspecified; Translations: [Nocturia] Onset: 07-09-2022 Resolved: 07-14-2022 Episodic Nutritional deficiencies (20 sources) Vitamin D deficiency; Translations: [Vitamin D deficiency, unspecified] Onset: 07-14-2022 Resolved: 07-14-2022 Chronic Other aftercare (5 sources) Other clinical program consultant (current) drug therapy; Translations: [OTH COMPONENTS ENGINEER CURRENT DRUG THERAPY] Onset: 07-14-2022 Resolved: 07-14-2022 [...] Chronic Other nutritional; endocrine; and metabolic disorders (8 sources) Hemochromatosis, unspecified; Translations: [Other hemochromatosis] Onset: [...] Chronic Other nutritional; endocrine; and metabolic disorders (3 sources) Hypocalcemia; Translations: [Hypocalcemia] 05-02-2024 Chronic Other nutritional; endocrine; and metabolic disorders (3 sources) Hypocalcemia; Translations: [Hypocalcemia] 05-02-2024 Chronic Other [...] 07-14-2022 Resolved: 07-14-2022 Episodic Residual codes; unclassified (19 sources) Obstructive sleep apnea syndrome; Translations: [Obstructive sleep apnea (adult) (pediatric)] 07-27-2022 Chronic Residual codes; unclassified (17 sources) Sleep apnea; Translations: [Sleep apnea, unspecified] 05-02-2024 Chronic Residual codes; unclassified (5 sources) Obstructive sleep apnea (adult) (pediatric); Translations: [...] W/AND (SUSP) EXPOS COVID-19] Onset: 09-10-2022 Unclassified (6 sources) Intentional weight loss; Translations: [Intentional weight [...] Test Name Value Interpretation Reference Range Facility Laboratory - Chemistry and C hemistry - challengeon 07-14-2024 Free T4 [Mass/Vol] 0.85 ng/dL 0.76-1.46 [facility] TSH Qn 2.233 m[IU]/L 0.358-3.740 [facility] No Panel Informationon 07-14 Free Triiodothyronine 2.00 pg/mL Low 2.18-3.98 [facility] Parathyroid Hormone (Intact) 42 pg/mL 15-65 [facility] Comment on above: Performed at: [facility] [place], [place] [id number] Director: Lonnie Mackenzie PhD, Phone: [phone] Phosphorus Level 3.3 mg/dL 2.6-4.7 [facility] Serum ionized calcium measur ement using ion specific electrode (mass/volume)on 07-14-2024 Calcium.ionized ISE [Mass/Vol] 4.8 mg/dL 4.5-5.6 [facility] Comment on above: Performed at: [employer] [place], [place] [id number] Director: Lonnie Mackenzie PhD, Phone: [phone] Basophils Auto (Bld) [#/Vol] on 06-29-2024 Basophils (Bld) [#/Vol] 0.0 10 3/uL 0.0-0.1 [facility] Basophils/100 WBC Auto (Bld) on 06-29-2024 Basophils/100 WBC (Bld) 0.5 % 0.2-2.0 [facility] Eosinophils/100 WBC Auto (Bl d)on 06-29-2024 Eosinophils/100 WBC (Bld) 1.9 % 0.9-7.0 [facility] Erythrocyte distribution wid th Auto (RBC) [Ratio]on 06-29-2024 Erythrocyte distribution width (RBC) [Ratio] 11.9 % 11.0-15.0 [facility] Estimated glomerular filtrat ion rate (GFR) non- Americanon 06-29-2024 GFR/1.73 sq M.predicted among non-blacks MDRD (S/P/Bld) [Vol rate/Area] mL/min/{1.73_m2} >=60 [facility] Globulin Calc (S) [Mass/Vol] on 06-29-2024 Globulin (S) [Mass/Vol] 3.7 g/dL [facility] Hematocrit Auto (Bld) [Volum e fraction]on 06-29-2024 Hematocrit (Bld) [Volume fraction] 41.3 % 36.0-48.0 [facility] Hemoglobin [Mass/volume] in Bloodon 06-29-2024 Hemoglobin (Bld) [Mass/Vol] 14.8 g/dL 12.0-16.0 [facility] INR in Platelet poor plasma by Coagulation assayon 06-29-2024 INR Coag (PPP) [Relative time] 1.03 {INR} [facility] Comment on above: DESIRED INR:2.0-3.0 CONDITIONS NOT LISTED BELOW2.5-3.5 FOR PROSTHETIC HEART VALVE REPLACEMENT2.5-3.5 RECURRENT THROMBOSIS Laboratory - Chemistry and C hemistry - challengeon 06-29-2024 Bilirubin Ql (U) Negative NEGATIVE [facility] Glucose (U) [Mass/Vol] Negative NEGATIVE [facility] Ketones Ql (U) Negative NEGATIVE [facility] pH (U) 7.0 [pH] 5.0-9.0 [facility] Specific gravity (U) [Rel density] <=1.005 Abnormal 1.005-1.025 [facility] Urobilinogen Qn (U) 0.2 {Anita'U}/dL 0.2-1.0 [facility] Albumin [Mass/Vol] 3.8 g/dL 3.4-5.0 [facility] ALP [Catalytic activity/Vol] 124 U/L High 46-116 [facility] ALT [Catalytic activity/Vol] 24 U/L 14-59 [facility] AST [Catalytic activity/Vol] 25 U/L 15-37 [facility] Bilirubin [Mass/Vol] 0.5 mg/dL 0.2-1.0 [facility] Calcium [Mass/Vol] 9.0 mg/dL 8.5-10.1 [facility] Chloride [Moles/Vol] 94 mmol/L Low 98-107 [facility] CO2 [Moles/Vol] 26.3 mmol/L 21.0-32.0 [facility] Creatinine [Mass/Vol] 0.76 mg/dL 0.55-1.02 [facility] GFR/1.73 sq M.predicted MDRD (S/P/Bld) [Vol rate/Area] mL/min/{1.73_m2} >=60 [facility] Glucose [Mass/Vol] 99 mg/dL 74-106 [facility] Lactate [Moles/Vol] 2.6 mmol/L High 0.4-2.0 [facility] Comment on above: RESULTS CALLED TO HOANG BURGESS Lipase [Catalytic activity/Vol] 52.0 U/L 16.0-77.0 [facility] Potassium [Moles/Vol] 3.9 mmol/L 3.5-5.1 [facility] Protein [Mass/Vol] 7.5 g/dL 6.4-8.2 [facility] Sodium [Moles/Vol] 129 mmol/L Low 136-145 [facility] Urea nitrogen [Mass/Vol] 14.0 mg/dL 7.0-18.0 [facility] Urea nitrogen/Creatinine [Mass ratio] 18.4 mg/mg [facility] Laboratory - Hematology and Cell countson 06-29-2024 Immature granulocytes/100 WBC (Bld) 0.2 % 0.0-0.5 [facility] Laboratory - Specimen inform ationon 06-29-2024 Appearance (U) CLEAR CLEAR [facility] Color (U) LT. YELLOW YELLOW [facility] Laboratory - Urinalysison Leukocyte esterase Test strip Ql (U) Negative NEGATIVE [facility] Nitrite Ql (U) Negative NEGATIVE [facility] Protein Ql (U) Negative NEG/TRACE [facility] Leukocytes [#/volume] correc trisha for nucleated erythrocytes in Blood by Automated counon 06-29-2024 WBC corrected for nucl RBC Auto (Bld) [#/Vol] 5.9 10 3/uL 4.0-11.0 [facility] Lymphocytes Auto (Bld) [#/Vo l]on 06-29-2024 Lymphocytes (Bld) [#/Vol] 1.9 10 3/uL 1.2-3.8 [facility] Lymphocytes/100 WBC Auto (Bl d)on 06-29-2024 Lymphocytes/100 WBC (Bld) 32.8 % 20.5-60.0 [facility] MCH Auto (RBC) [Entitic mass ]on 06-29-2024 MCH (RBC) [Entitic mass] 33.9 pg 26.7-34.0 [facility] MCHC Auto (RBC) [Mass/Vol]on 06-29-2024 MCHC (RBC) [Mass/Vol] 35.8 g/dL High 29.9-35.2 [facility] MCV Auto (RBC) [Entitic vol] on 06-29-2024 MCV (RBC) [Entitic vol] 94.7 fL 81.0-99.0 [facility] Monocytes Auto (Bld) [#/Vol] on 06-29-2024 Monocytes (Bld) [#/Vol] 0.6 10 3/uL 0.3-0.8 [facility] Monocytes/100 WBC Auto (Bld) on 06-29-2024 Monocytes/100 WBC (Bld) 10.3 % 1.7-12.0 [facility] Neutrophils Auto (Bld) [#/Vo l]on 06-29-2024 Neutrophils (Bld) [#/Vol] 3.2 10 3/uL 1.4-6.5 [facility] Neutrophils/100 WBC Auto (Bl d)on 06-29-2024 Neutrophils/100 WBC (Bld) 54.3 % 43.0-75.0 [facility] No Panel Informationon 06-29 Urine Microscopic Review NO [facility] Urine Occult Blood Negative NEGATIVE [facility] Eosinophils # (Auto) 0.1 10 3/uL 0.0-0.7 [facility] Immature Granulocyte # (Auto) 0.01 10 3/uL 0.00-0.03 [facility] Troponin I High Sensitivity <4.0 pg/mL Low 4.0-51.3 [facility] Comment on above: CUT-OFF POINTS HAVE BEEN ESTABLISHED BASED ON THE FOURTHUNIVERSAL DEFINITION OF MYOCARDIAL INFARCTION. THE UPPERREFERENCE LIMIT (URL) OF TROPONIN, DEFINED THE 99THPERCENTILE OF cTnI DISTRIBUTION IN A REFERENCE POPULATION,HAS BEEN CONFIRMED THE DECISION THRESHOLD FOR MIDIAGNOSIS.99TH PERCENTILE = 51.4 PG/MLNOTE: HIGH-SENSITIVITY TROPONIN ASSAY IS NOT INTENDED TO BEUSED IN ISOLATION BUT SHOULD BE INTERPRETED IN CONJUNCTIONWITH OTHER DIAGNOSTIC AND CLINICAL INFORMATION. Platelet mean volume Auto (B ld) [Entitic vol]on 06-29-2024 Platelet mean volume (Bld) [Entitic vol] 8.7 fL Low 9.5-13.5 [facility] Platelets Auto (Bld) [#/Vol] on 06-29-2024 Platelets (Bld) [#/Vol] 310 10 3/uL 150-450 [facility] Prothrombin time (PT)on 06-09 PT Coag (PPP) [Time] 10.9 s 9.0-11.6 [facility] RBC Auto (Bld) [#/Vol]on RBC (Bld) [#/Vol] 4.36 10 6/uL 4.20-5.40 [facility] Serum or plasma albumin/glob ulin mass ratioon 06-29-2024 Albumin/Globulin [Mass ratio] 1.0 {ratio} [facility] Serum or plasma anion gap de terminationon 06-29-2024 Anion gap [Moles/Vol] 12.6 mmol/L [facility] Basophils Auto (Bld) [#/Vol] on 06-19-2024 Basophils (Bld) [#/Vol] 0.0 10 3/uL 0.0-0.1 [facility] Basophils/100 WBC Auto (Bld) on 06-19-2024 Basophils/100 WBC (Bld) 0.5 % 0.2-2.0 [facility] Blood thiamine measurement ( moles/volume)on 06-19-2024 Thiamine (Bld) [Moles/Vol] 168.2 nmol/L 66.5-200.0 [facility] Comment on above: This test was develo ped and its performance characteristicsdetermined by [employer]. It has not been cleared orapproved by the Food and Drug Administration.Performed at: [facility] [employer] [id number] Director: Chata Patel MD, Phone: [phone] Eosinophils/100 WBC Auto (Bl d)on 06-19-2024 Eosinophils/100 WBC (Bld) 0.0 % Low 0.9-7.0 [facility] Erythrocyte distribution wid th Auto (RBC) [Ratio]on 06-19-2024 Erythrocyte distribution width (RBC) [Ratio] 12.0 % 11.0-15.0 [facility] Estimated glomerular filtrat ion rate (GFR) non- Americanon 06-19-2024 GFR/1.73 sq M.predicted among non-blacks MDRD (S/P/Bld) [Vol rate/Area] mL/min/{1.73_m2} >=60 [facility] Globulin Calc (S) [Mass/Vol] on 06-19-2024 Globulin (S) [Mass/Vol] 3.2 g/dL [facility] Hematocrit Auto (Bld) [Volum e fraction]on 06-19-2024 Hematocrit (Bld) [Volume fraction] 40.4 % 36.0-48.0 [facility] Hemoglobin [Mass/volume] in Bloodon 06-19-2024 Hemoglobin (Bld) [Mass/Vol] 14.1 g/dL 12.0-16.0 [facility] Iron binding capacity [Mass/ volume] in Serum or Plasmaon 06-19-2024 Iron binding capacity [Mass/Vol] 264.0 ug/dL 250.0-450.0 [facility] Iron saturation [Mass Fracti on] in Serum or Plasmaon 06-19-2024 Iron saturation [Mass fraction] 51.5 % [facility] Laboratory - Chemistry and C hemistry - challengeon 06-19-2024 Albumin [Mass/Vol] 3.9 g/dL 3.4-5.0 [facility] ALP [Catalytic activity/Vol] 122 U/L High 46-116 [facility] ALT [Catalytic activity/Vol] 26 U/L 14-59 [facility] AST [Catalytic activity/Vol] 19 U/L 15-37 [facility] Bilirubin [Mass/Vol] 0.5 mg/dL 0.2-1.0 [facility] Calcium [Mass/Vol] 8.7 mg/dL 8.5-10.1 [facility] Chloride [Moles/Vol] 95 mmol/L Low 98-107 [facility] CO2 [Moles/Vol] 28.9 mmol/L 21.0-32.0 [facility] Cobalamin (Vitamin B12) [Mass/Vol] 2841.0 pg/mL High 193.0-986.0 [facility] Creatinine [Mass/Vol] 0.70 mg/dL 0.55-1.02 [facility] Ferritin [Mass/Vol] 223.0 ng/mL 8.0-252.0 [facility] GFR/1.73 sq M.predicted MDRD (S/P/Bld) [Vol rate/Area] mL/min/{1.73_m2} >=60 [facility] Glucose [Mass/Vol] 92 mg/dL 74-106 [facility] Iron [Mass/Vol] 136.0 ug/dL 50.0-170.0 [facility] Magnesium [Mass/Vol] 1.8 mg/dL 1.8-2.4 [facility] Potassium [Moles/Vol] 3.7 mmol/L 3.5-5.1 [facility] Protein [Mass/Vol] 7.1 g/dL 6.4-8.2 [facility] Sodium [Moles/Vol] 131 mmol/L Low 136-145 [facility] Urea nitrogen [Mass/Vol] 10.0 mg/dL 7.0-18.0 [facility] Urea nitrogen/Creatinine [Mass ratio] 14.3 mg/mg [facility] Laboratory - Hematology and Cell countson 06-19-2024 Immature granulocytes/100 WBC (Bld) 0.0 % 0.0-0.5 [facility] Leukocytes [#/volume] correc trisha for nucleated erythrocytes in Blood by Automated counon 06-19-2024 WBC corrected for nucl RBC Auto (Bld) [#/Vol] 4.0 10 3/uL 4.0-11.0 [facility] Lymphocytes Auto (Bld) [#/Vo l]on 06-19-2024 Lymphocytes (Bld) [#/Vol] 1.7 10 3/uL 1.2-3.8 [facility] Lymphocytes/100 WBC Auto (Bl d)on 06-19-2024 Lymphocytes/100 WBC (Bld) 42.0 % 20.5-60.0 [facility] MCH Auto (RBC) [Entitic mass ]on 06-19-2024 MCH (RBC) [Entitic mass] 33.8 pg 26.7-34.0 [facility] MCHC Auto (RBC) [Mass/Vol]on 06-19-2024 MCHC (RBC) [Mass/Vol] 34.9 g/dL 29.9-35.2 [facility] MCV Auto (RBC) [Entitic vol] on 06-19-2024 MCV (RBC) [Entitic vol] 96.9 fL 81.0-99.0 [facility] Monocytes Auto (Bld) [#/Vol] on 06-19-2024 Monocytes (Bld) [#/Vol] 0.4 10 3/uL 0.3-0.8 [facility] Monocytes/100 WBC Auto (Bld) on 06-19-2024 Monocytes/100 WBC (Bld) 9.0 % 1.7-12.0 [facility] Neutrophils Auto (Bld) [#/Vo l]on 06-19-2024 Neutrophils (Bld) [#/Vol] 1.9 10 3/uL 1.4-6.5 [facility] Neutrophils/100 WBC Auto (Bl d)on 06-19-2024 Neutrophils/100 WBC (Bld) 48.5 % 43.0-75.0 [facility] No Panel Informationon 06-19 25-Hydroxy Vitamin D Total 117.9 ng/mL [facility] Comment on above: <20 ng/mL Vit D defi cient20-<30 ng/mL Vit D [id number] ng/mL Vit D sufficient>100 ng/mL Potential Toxicity Eosinophils # (Auto) 0.0 10 3/uL 0.0-0.7 [facility] Folate 26.60 ng/mL 8.60-58.90 [facility] Immature Granulocyte # (Auto) 0.00 10 3/uL 0.00-0.03 [facility] Phosphorus Level 3.6 mg/dL 2.6-4.7 [facility] Platelet mean volume Auto (B ld) [Entitic vol]on 06-19-2024 Platelet mean volume (Bld) [Entitic vol] 8.6 fL Low 9.5-13.5 [facility] Platelets Auto (Bld) [#/Vol] on 06-19-2024 Platelets (Bld) [#/Vol] 296 10 3/uL 150-450 [facility] RBC Auto (Bld) [#/Vol]on RBC (Bld) [#/Vol] 4.17 10 6/uL Low 4.20-5.40 [facility] Serum or plasma albumin/glob ulin mass ratioon 06-19-2024 Albumin/Globulin [Mass ratio] 1.2 {ratio} [facility] Serum or plasma anion gap de terminationon 06-19-2024 Anion gap [Moles/Vol] 10.8 mmol/L [facility] Basophils Auto (Bld) [#/Vol] on 04-26-2024 Basophils (Bld) [#/Vol] 0.0 10 3/uL 0.0-0.1 [facility] Basophils/100 WBC Auto (Bld) on 04-26-2024 Basophils/100 WBC (Bld) 0.6 % 0.2-2.0 [facility] Cholesterol in LDL Calc [Mas s/Vol]on 04-26-2024 Cholesterol in LDL [Mass/Vol] 98.0 mg/dL [facility] Comment on above: <100 mg/dl [id number] 0-129 mg/dl NEAR OR ABOVE [id number] mg/dl BORDERLINE [id number] mg/dl HIGH>190 mg/dl VERY HIGH Cholesterol in VLDL Calc [Ma ss/Vol]on 04-26-2024 Cholesterol in VLDL [Mass/Vol] 4.2 mg/dL [facility] Eosinophils/100 WBC Auto (Bl d)on 04-26-2024 Eosinophils/100 WBC (Bld) 0.0 % Low 0.9-7.0 [facility] Erythrocyte distribution wid th Auto (RBC) [Ratio]on 04-26-2024 Erythrocyte distribution width (RBC) [Ratio] 12.4 % 11.0-15.0 [facility] Estimated glomerular filtrat ion rate (GFR) non- Americanon 04-26-2024 GFR/1.73 sq M.predicted among non-blacks MDRD (S/P/Bld) [Vol rate/Area] mL/min/{1.73_m2} >=60 [facility] Globulin Calc (S) [Mass/Vol] on 04-26-2024 Globulin (S) [Mass/Vol] 3.9 g/dL [facility] Glucose mean value [Mass/vol ume] in Blood Estimated from glycated hemoglobinon 04-26-2024 Average glucose Estimated from glycated hemoglobin (Bld) [Mass/Vol] 105 mg/dL [facility] Hematocrit Auto (Bld) [Volum e fraction]on 04-26-2024 Hematocrit (Bld) [Volume fraction] 41.3 % 36.0-48.0 [facility] Hemoglobin [Mass/volume] in Bloodon 04-26-2024 Hemoglobin (Bld) [Mass/Vol] 14.0 g/dL 12.0-16.0 [facility] Iron binding capacity [Mass/ volume] in Serum or Plasmaon 04-26-2024 Iron binding capacity [Mass/Vol] 300.0 ug/dL 250.0-450.0 [facility] Iron saturation [Mass Fracti on] in Serum or Plasmaon 04-26-2024 Iron saturation [Mass fraction] 59.3 % [facility] Laboratory - Chemistry and C hemistry - challengeon 04-26-2024 Albumin [Mass/Vol] 3.5 g/dL 3.4-5.0 [facility] ALP [Catalytic activity/Vol] 160 U/L High 46-116 [facility] ALT [Catalytic activity/Vol] 29 U/L 14-59 [facility] AST [Catalytic activity/Vol] 21 U/L 15-37 [facility] Bilirubin [Mass/Vol] 0.4 mg/dL 0.2-1.0 [facility] Calcium [Mass/Vol] 8.4 mg/dL Low 8.5-10.1 [facility] Chloride [Moles/Vol] 98 mmol/L 98-107 [facility] Cholesterol [Mass/Vol] 228 mg/dL High <=200 [facility] Cholesterol in HDL [Mass/Vol] 126 mg/dL High 40-60 [facility] Comment on above: > or =60 mg/dl - LOW CARDIOVASCULAR RISK<40 mg/dl - HIGH CARDIOVASCULAR RISK CO2 [Moles/Vol] 29.6 mmol/L 21.0-32.0 [facility] Creatinine [Mass/Vol] 0.71 mg/dL 0.55-1.02 [facility] Ferritin [Mass/Vol] 188.0 ng/mL 8.0-252.0 [facility] Free T4 [Mass/Vol] 0.72 ng/dL Low 0.76-1.46 [facility] GFR/1.73 sq M.predicted MDRD (S/P/Bld) [Vol rate/Area] mL/min/{1.73_m2} >=60 [facility] Glucose [Mass/Vol] 99 mg/dL 74-106 [facility] Iron [Mass/Vol] 178.0 ug/dL High 50.0-170.0 [facility] Potassium [Moles/Vol] 4.6 mmol/L 3.5-5.1 [facility] Protein [Mass/Vol] 7.4 g/dL 6.4-8.2 [facility] Sodium [Moles/Vol] 133 mmol/L Low 136-145 [facility] Triglyceride [Mass/Vol] 21 mg/dL <=150 [facility] TSH Qn 7.238 m[IU]/L High 0.358-3.740 [facility] Urea nitrogen [Mass/Vol] 9.0 mg/dL 7.0-18.0 [facility] Urea nitrogen/Creatinine [Mass ratio] 12.7 mg/mg [facility] Laboratory - Hematology and Cell countson 04-26-2024 HbA1c (Bld) [Mass fraction] 5.3 % 4.5-6.2 [facility] Comment on above: ADA RECOMMENDED LIMI T 4.0 - 6.0ADA THERAPEUTIC TARGET < 7.0ACTION SUGGESTED> 7.0 Immature granulocytes/100 WBC (Bld) 0.0 % 0.0-0.5 [facility] Leukocytes [#/volume] correc trisha for nucleated erythrocytes in Blood by Automated counon 04-26-2024 WBC corrected for nucl RBC Auto (Bld) [#/Vol] 4.9 10 3/uL 4.0-11.0 [facility] Lymphocytes Auto (Bld) [#/Vo l]on 04-26-2024 Lymphocytes (Bld) [#/Vol] 2.0 10 3/uL 1.2-3.8 [facility] Lymphocytes/100 WBC Auto (Bl d)on 04-26-2024 Lymphocytes/100 WBC (Bld) 41.3 % 20.5-60.0 [facility] MCH Auto (RBC) [Entitic mass ]on 04-26-2024 MCH (RBC) [Entitic mass] 32.7 pg 26.7-34.0 [facility] MCHC Auto (RBC) [Mass/Vol]on 04-26-2024 MCHC (RBC) [Mass/Vol] 33.9 g/dL 29.9-35.2 [facility] MCV Auto (RBC) [Entitic vol] on 04-26-2024 MCV (RBC) [Entitic vol] 96.5 fL 81.0-99.0 [facility] Monocytes Auto (Bld) [#/Vol] on 04-26-2024 Monocytes (Bld) [#/Vol] 0.4 10 3/uL 0.3-0.8 [facility] Monocytes/100 WBC Auto (Bld) on 04-26-2024 Monocytes/100 WBC (Bld) 7.5 % 1.7-12.0 [facility] Neutrophils Auto (Bld) [#/Vo l]on 04-26-2024 Neutrophils (Bld) [#/Vol] 2.5 10 3/uL 1.4-6.5 [facility] Neutrophils/100 WBC Auto (Bl d)on 04-26-2024 Neutrophils/100 WBC (Bld) 50.6 % 43.0-75.0 [facility] No Panel Informationon 04-26 25-Hydroxy Vitamin D Total 106.7 ng/mL [facility] Comment on above: <20 ng/mL Vit D defi cient20-<30 ng/mL Vit D [id number] ng/mL Vit D sufficient>100 ng/mL Potential Toxicity Eosinophils # (Auto) 0.0 10 3/uL 0.0-0.7 [facility] Immature Granulocyte # (Auto) 0.00 10 3/uL 0.00-0.03 [facility] Total Triiodothyronine 74 ng/dL 71-180 [facility] Comment on above: Performed at: [address] [id number] Director: Lonnie Mackenzie PhD, Phone: [phone] Platelet mean volume Auto (B ld) [Entitic vol]on 04-26-2024 Platelet mean volume (Bld) [Entitic vol] 8.6 fL Low 9.5-13.5 [facility] Platelets Auto (Bld) [#/Vol] on 04-26-2024 Platelets (Bld) [#/Vol] 311 10 3/uL 150-450 [facility] RBC Auto (Bld) [#/Vol]on RBC (Bld) [#/Vol] 4.28 10 6/uL 4.20-5.40 [facility] Serum or plasma albumin/glob ulin mass ratioon 04-26-2024 Albumin/Globulin [Mass ratio] 0.9 {ratio} [facility] Serum or plasma anion gap de terminationon 04-26-2024 Anion gap [Moles/Vol] 10.0 mmol/L [facility] Serum or plasma total choles terol/high density lipoprotein (HDL) cholesterol mass rosalio 04-26-2024 Cholesterol.total/C holesterol in HDL [Mass ratio] 1.8 {ratio} [facility] Comment on above: 3.3 - 4.4 LOW RISK4. 4 - 7.1 AVERAGE RISK7.1 - 11.0 MODERATE RISK>11.0 HIGH RISK ALKP ISOENZYMESon 01-12-2023 ALP [Catalytic activity/Vol] 159 U/L Critically high 44-121 [facility] Comment on above: Performed By: #### A LKPISO #### [facility] [address] [place] [address] Dr. Cecilio Gale Bone Fraction: 36 % Normal 14-68 [facility] Comment on above: Performed By: #### A LKPISO #### [facility] [address] [place] [address] Dr. Cecilio Gale Intestinal Frac.: 6 % Normal 0-18 [facility] Comment on above: Performed By: #### A LKPISO #### [facility] [address] [place] [address] Dr. Cecilio Gale Liver Fraction: 59 % Normal 18-85 [facility] Comment on above: Performed By: #### A LKPISO #### [facility] [address] [place] [address] Dr. Cecilio Gale CBC AUTO DIFFon 01-11-2023 BASO # 0.0 103/ul Normal 0.0-0.1 [facility] Comment on above: Performed By: #### F T4, VITAD, FETIBC, FERR #### [facility] [address] [place] [address] Dr. Cecilio Gale Basophils/100 WBC (Bld) 0.9 % Normal 0.2-2.0 [facility] Comment on above: Performed By: #### F T4, VITAD, FETIBC, FERR #### [facility] [address] [place] [address] Dr. Cecilio Gale EO # 0.0 103/ul Normal 0.0-0.7 [facility] Comment on above: Performed By: #### F T4, VITAD, FETIBC, FERR #### [facility] [address] [place] [address] Dr. Cecilio Gale Eosinophils/100 WBC (Bld) 0.6 % Critically low 0.9-7.0 [facility] Comment on above: Performed By: #### F T4, VITAD, FETIBC, FERR #### [facility] [address] [place] [address] Dr. Cecilio Gale Erythrocyte distribution width (RBC) [Ratio] 11.8 % Normal 11.0-15.0 [facility] Comment on above: Performed By: #### F T4, VITAD, FETIBC, FERR #### [facility] [address] [place] [address] Dr. Cecilio Gale Hematocrit (Bld) [Volume fraction] 41.3 % Normal 36.0-48.0 [facility] Comment on above: Performed By: #### F T4, VITAD, FETIBC, FERR #### [facility] [address] [place] [address] Dr. Cecilio Gale Hemoglobin (Bld) [Mass/Vol] 14.5 g/dL Normal 12.0-16.0 [facility] Comment on above: Performed By: #### F T4, VITAD, FETIBC, FERR #### [facility] [address] [place] [address] Dr. Cecilio Gale IG # 0.01 10e3/ul Normal 0.00-0.03 [facility] Comment on above: Performed By: #### F T4, VITAD, FETIBC, FERR #### [facility] [address] [place] [address] Dr. Cecilio Gale IG % 0.2 % Normal 0.0-0.5 [facility] Comment on above: Performed By: #### F T4, VITAD, FETIBC, FERR #### [facility] [address] [place] [address] Dr. Cecilio Gale LYMPH # 1.8 103/ul Normal 1.2-3.8 [facility] Comment on above: Performed By: #### F T4, VITAD, FETIBC, FERR #### [facility] [address] [place] [address] Dr. Cecilio Gale Lymphocytes/100 WBC (Bld) 39.1 % Normal 20.5-60.0 [facility] Comment on above: Performed By: #### F T4, VITAD, FETIBC, FERR #### [facility] [address] [place] [address] Dr. Cecilio Gale MANUAL DIFF REQ NO Normal [facility] Comment on above: Performed By: #### F T4, VITAD, FETIBC, FERR #### [facility] [address] [place] [address] Dr. Cecilio Gale MCH (RBC) [Entitic mass] 32.7 pg Normal 26.7-34.0 [facility] Comment on above: Performed By: #### F T4, VITAD, FETIBC, FERR #### [facility] [address] [place] [address] Dr. Cecilio aGle MCHC (RBC) [Mass/Vol] 35.1 g/dL Normal 29.9-35.2 [facility] Comment on above: Performed By: #### F T4, VITAD, FETIBC, FERR #### [facility] [address] [place] [address] Dr. Cecilio Gale MCV (RBC) [Entitic vol] 93.0 fL Normal 81.0-99.0 [facility] Comment on above: Performed By: #### F T4, VITAD, FETIBC, FERR #### [facility] [address] [place] [address] Dr. Cecilio Gale MONO # 0.4 103/ul Normal 0.3-0.8 [facility] Comment on above: Performed By: #### F T4, VITAD, FETIBC, FERR #### [facility] [address] [place] [address] Dr. Cecilio Gale Monocytes/100 WBC (Bld) 9.2 % Normal 1.7-12.0 [facility] Comment on above: Performed By: #### F T4, VITAD, FETIBC, FERR #### [facility] [address] [place] [address] Dr. Cecilio Gale NEUT # 2.3 103/ul Normal 1.4-6.5 [facility] Comment on above: Performed By: #### F T4, VITAD, FETIBC, FERR #### [facility] [address] [place] [address] Dr. Cecilio Gale Neutrophils/100 WBC (Bld) 50.0 % Normal 43.0-75.0 [facility] Comment on above: Performed By: #### F T4, VITAD, FETIBC, FERR #### [facility] [address] [place] [address] Dr. Cecilio Gale Platelet mean volume (Bld) [Entitic vol] 8.6 fL Critically low 9.5-13.5 [facility] Comment on above: Performed By: #### F T4, VITAD, FETIBC, FERR #### [facility] [address] [place] [address] Dr. Cecilio Gale PLT 354 103/ul Normal 150-450 [facility] Comment on above: Performed By: #### F T4, VITAD, FETIBC, FERR #### [facility] [address] [place] [address] Dr. Cecilio Gale RBC 4.44 106/ul Normal 4.20-5.40 [facility] Comment on above: Performed By: #### F T4, VITAD, FETIBC, FERR #### [facility] [address] [place] [address] Dr. Cecilio Gale WBC 4.7 103/ul Normal 4.0-11.0 [facility] Comment on above: Performed By: #### F T4, VITAD, FETIBC, FERR #### [facility] [address] [place] [address] Dr. Cecilio Gale CULTURE URINEon 03-06-2023 CULTURE URINE Culture Observations : LIGHT GROWTH OF MIXED GENITAL CAMERON. NO POTENTIAL PATHOGENS SEEN. Normal [facility] Comment on above: Performed By: #### F T4, VITAD, FETIBC, FERR #### [facility] [address] [place] [address] Dr. Cecilio Gale FERRITINon 01-11-2023 Ferritin [Mass/Vol] 132.0 ng/mL Normal 8.0-252.0 [facility] Comment on above: Performed By: #### F T4, VITAD, FETIBC, FERR #### [facility] [address] [place] [address] Dr. Cecilio Gale FREE T3on 01-11-2023 FREE T3 2.03 pg/mlL Critically low 2.18-3.98 [facility] Comment on above: Performed By: #### F T4, VITAD, FETIBC, FERR #### [facility] [address] [place] [address] Dr. Cecilio Gale FREE T4on 01-11-2023 Free T4 [Mass/Vol] 0.82 ng/dL Normal 0.76-1.46 [facility] Comment on above: Performed By: #### F T4, VITAD, FETIBC, FERR #### [facility] [address] [place] [address] Dr. Cecilio Gale GLYCOHEMOGLOBIN A1Con 2022 ADA RECOMMENDATION SEE BELOW Normal [facility] Comment on above: Result Comment: ADA RECOMMENDED LIMIT 4.0 - 6.0 ADA THERAPEUTIC TARGET < 7.0 ACTION SUGGESTED > 7.0 Performed By: #### F T4, VITAD, FETIBC, FERR #### [facility] [address] [place] [address] Dr. Cecilio Gale Glucose [Mass/Vol] 103 mg/dL Normal [facility] Comment on above: Performed By: #### F T4, VITAD, FETIBC, FERR #### [facility] [address] [place] [address] Dr. Cecilio Gale HbA1c (Bld) [Mass fraction] 5.2 % Normal 4.5-6.2 [facility] Comment on above: Performed By: #### F T4, VITAD, FETIBC, FERR #### [facility] [address] [address] [address] Cecilio Gale IRON AND TIBCon 01-11-2023 % SATURATION 44.6 % Normal [facility] Comment on above: Performed By: #### F T4, VITAD, FETIBC, FERR #### [facility] [address] [address] [address] Cecilio Gale Iron [Mass/Vol] 121.0 ug/dL Normal 50.0-170.0 [facility] Comment on above: Performed By: #### F T4, VITAD, FETIBC, FERR #### [facility] [address] [place] [address] Dr. Cecilio Gale TIBC DIRECT 271.0 ug/dL Normal 250.0-450.0 [facility] Comment on above: Performed By: #### F T4, VITAD, FETIBC, FERR #### [facility] [address] [place] [address] Dr. Cecilio Gale LIPID PROFILEon 01-11-2023 CHOL-HDL RATIO NORM SEE BELOW Normal [facility] Comment on above: Result Comment: 3.3 - 4.4 LOW RISK 4.4 - 7.1 AVERAGE RISK 7.1 - 11.0 MODERATE RISK >11.0 HIGH RISK Performed By: #### F T4, VITAD, FETIBC, FERR #### [facility] [address] [place] [address] Dr. Cecilio Gale Cholesterol [Mass/Vol] 216 mg/dL Critically high <=200 [facility] Comment on above: Performed By: #### F T4, VITAD, FETIBC, FERR #### [facility] [address] [place] [address] Dr. Cecilio Gale Cholesterol in HDL [Mass/Vol] 96 mg/dL Critically high 40-60 [facility] Comment on above: Performed By: #### F T4, VITAD, FETIBC, FERR #### [facility] [address] [place] [address] Dr. Cecilio Gale Cholesterol in LDL [Mass/Vol] 103.0 mg/dL Normal [facility] Comment on above: Performed By: #### F T4, VITAD, FETIBC, FERR #### [facility] [address] [place] [address] Dr. Cecilio Gale Cholesterol.total/C holesterol in HDL [Mass ratio] 2.3 {ratio} Normal [facility] Comment on above: Performed By: #### F T4, VITAD, FETIBC, FERR #### [facility] [address] [address] [address] Cecilio Gale HDL NORMAL > or = 60 mg/dl - LO W CARDIOVASCULAR RISK <40 mg/dl - HIGH CARDIOVASCULAR RISK Normal [facility] Comment on above: Performed By: #### F T4, VITAD, FETIBC, FERR #### [facility] [address] [place] [address] Dr. Cecilio Gale LDL CALC NORMAL SEE BELOW Normal [facility] Comment on above: Result Comment: <100 mg/dl OPTIMAL 100 - 129 mg/dl NEAR OR ABOVE OPTIMAL 130 - 159 mg/dl BORDERLINE HIGH 160 - 189 mg/dl HIGH >190 mg/dl VERY HIGH Performed By: #### F T4, VITAD, FETIBC, FERR #### [facility] [address] [place] [address] Dr. Cecilio Gale Triglyceride [Mass/Vol] 86 mg/dL Normal <=150 [facility] Comment on above: Performed By: #### F T4, VITAD, FETIBC, FERR #### [facility] [address] [place] [address] Dr. Cecilio Gale VLDL CALC 17.2 mg/dL Normal [facility] Comment on above: Performed By: #### F T4, VITAD, FETIBC, FERR #### [facility] [address] [place] [address] Dr. Cecilio Gale PROF 14(COMP METB)on 023 Albumin [Mass/Vol] 3.8 g/dL Normal 3.4-5.0 [facility] Comment on above: Performed By: #### F T4, VITAD, FETIBC, FERR #### [facility] [address] [address] [address] Cecilio Gale Albumin/Globulin [Mass ratio] 1.0 {ratio} Normal [facility] Comment on above: Performed By: #### F T4, VITAD, FETIBC, FERR #### [facility] [address] [address] [address] Cecilio Gale ALP [Catalytic activity/Vol] 165 U/L Critically high 46-116 [facility] Comment on above: Performed By: #### F T4, VITAD, FETIBC, FERR #### [facility] [address] [address] [address] Cecilio Gale ALT [Catalytic activity/Vol] 24 U/L Normal 14-59 [facility] Comment on above: Performed By: #### F T4, VITAD, FETIBC, FERR #### [facility] [address] [place] [address] Dr. Cecilio Gale Anion gap [Moles/Vol] 14.6 mmol/L Normal [facility] Comment on above: Performed By: #### F T4, VITAD, FETIBC, FERR #### [facility] [address] [place] [address] Dr. Cecilio Gale AST [Catalytic activity/Vol] 19 U/L Normal 15-37 [facility] Comment on above: Performed By: #### F T4, VITAD, FETIBC, FERR #### [facility] [address] [place] [address] Dr. Cecilio Gale Bilirubin [Mass/Vol] 0.3 mg/dL Normal 0.2-1.0 [facility] Comment on above: Performed By: #### F T4, VITAD, FETIBC, FERR #### [facility] [address] [place] [address] Dr. Cecilio Gale Calcium [Mass/Vol] 8.9 mg/dL Normal 8.5-10.1 [facility] Comment on above: Performed By: #### F T4, VITAD, FETIBC, FERR #### [facility] [address] [place] [address] Dr. Cecilio Gale Chloride [Moles/Vol] 106 mmol/L Normal 98-107 [facility] Comment on above: Performed By: #### F T4, VITAD, FETIBC, FERR #### [facility] [address] [place] [address] Dr. Cecilio Gale CO2 [Moles/Vol] 25.3 mmol/L Normal 21.0-32.0 [facility] Comment on above: Performed By: #### F T4, VITAD, FETIBC, FERR #### [facility] [address] [place] [address] Dr. Cecilio Gale Creatinine [Mass/Vol] 0.72 mg/dL Normal 0.55-1.02 [facility] Comment on above: Performed By: #### F T4, VITAD, FETIBC, FERR #### [facility] [address] [place] [address] Dr. Cecilio Gale EGFR-AF BENINESE >60 Normal >=60 [facility] Comment on above: Performed By: #### F T4, VITAD, FETIBC, FERR #### [facility] [address] [place] [address] Dr. Cecilio Gale EGFR-NON AF BENINESE >60 Normal >=60 [facility] Comment on above: Performed By: #### F T4, VITAD, FETIBC, FERR #### [facility] [address] [place] [address] Dr. Cecilio Gale Globulin (S) [Mass/Vol] 3.7 g/dL Normal [facility] Comment on above: Performed By: #### F T4, VITAD, FETIBC, FERR #### [facility] [address] [place] [address] Dr. Cecilio Gale Glucose [Mass/Vol] 112 mg/dL Critically high 74-106 [facility] Comment on above: Performed By: #### F T4, VITAD, FETIBC, FERR #### [facility] [address] [place] [address] Dr. Cecilio Gale Potassium [Moles/Vol] 4.0 mmol/L Normal 3.5-5.1 [facility] Comment on above: Performed By: #### F T4, VITAD, FETIBC, FERR #### [facility] [address] [place] [address] Dr. Cecilio Gale Protein [Mass/Vol] 7.5 g/dL Normal 6.4-8.2 [facility] Comment on above: Performed By: #### F T4, VITAD, FETIBC, FERR #### [facility] [address] [place] [address] Dr. Cecilio Gale Sodium [Moles/Vol] 142 mmol/L Normal 136-145 [facility] Comment on above: Performed By: #### F T4, VITAD, FETIBC, FERR #### [facility] [address] [place] [address] Dr. Cecilio Gale Urea nitrogen [Mass/Vol] 9.0 mg/dL Normal 7.0-18.0 [facility] Comment on above: Performed By: #### F T4, VITAD, FETIBC, FERR #### [facility] [address] [place] [address] Dr. Cecilio Gale Urea nitrogen/Creatinine [Mass ratio] 12.5 mg/mg Normal [facility] Comment on above: Performed By: #### F T4, VITAD, FETIBC, FERR #### [facility] [address] [place] [address] Dr. Cecilio Gale TSHon 01-11-2023 TSH 1.685 uIU/mL Normal 0.358-3.740 [facility] Comment on above: Performed By: #### F T4, VITAD, FETIBC, FERR #### [facility] [address] [place] [address] Dr. Cecilio Gale UA RANDOM W/MICROSCOPICon BACTERIA NONE SEEN Normal NONE SEEN [facility] Comment on above: Performed By: #### F T4, VITAD, FETIBC, FERR #### [facility] [address] [place] [address] Dr. Cecilio Gale Bilirubin Ql (U) Negative Normal NEGATIVE [facility] Comment on above: Performed By: #### F T4, VITAD, FETIBC, FERR #### [facility] [address] [address] [address] Cecilio Gale CAST NONE SEEN Normal NONE SEEN [facility] Comment on above: Performed By: #### F T4, VITAD, FETIBC, FERR #### [facility] [address] [address] [address] Cecilio Gale Clarity (U) CLEAR Normal CLEAR [facility] Comment on above: Performed By: #### F T4, VITAD, FETIBC, FERR #### [facility] [address] [address] [address] Cecilio Gale Color (U) LT. YELLOW Normal YELLOW [facility] Comment on above: Performed By: #### F T4, VITAD, FETIBC, FERR #### [facility] [address] [place] [address] Dr. Cecilio Gale Crystals LM Nom (Urine sed) NONE SEEN Normal NONE SEEN [facility] Comment on above: Performed By: #### F T4, VITAD, FETIBC, FERR #### [facility] [address] [address] [address] Cecilio Gale Epithelial cells LM Ql (Urine sed) FEW Abnormal NONE SEEN /RARE [facility] Comment on above: Performed By: #### F T4, VITAD, FETIBC, FERR #### [facility] [address] [address] [address] Cecilio Gale Glucose Ql (U) Negative Normal NEGATIVE [facility] Comment on above: Performed By: #### F T4, VITAD, FETIBC, FERR #### [facility] [address] [address] [address] Cecilio Gale Hemoglobin Ql (U) Negative Normal NEGATIVE [facility] Comment on above: Performed By: #### F T4, VITAD, FETIBC, FERR #### [facility] [address] [place] [address] Dr. Cecilio Gale Ketones Ql (U) Negative Normal NEGATIVE [facility] Comment on above: Performed By: #### F T4, VITAD, FETIBC, FERR #### [facility] [address] [place] [address] Dr. Cecilio Gale LEUKOCYTES Negative Normal NEGATIVE [facility] Comment on above: Performed By: #### F T4, VITAD, FETIBC, FERR #### [facility] [address] [place] [address] Dr. Cecilio Gale MUCOUS NONE SEEN Normal NONE SEEN [facility] Comment on above: Performed By: #### F T4, VITAD, FETIBC, FERR #### [facility] [address] [address] [address] Cecilio Gale Nitrite Ql (U) Negative Normal NEGATIVE [facility] Comment on above: Performed By: #### F T4, VITAD, FETIBC, FERR #### [facility] [address] [place] [address] Dr. Cecilio Gale pH (U) 7.5 [pH] Normal 5-9 [facility] Comment on above: Performed By: #### F T4, VITAD, FETIBC, FERR #### [facility] [address] [place] [address] Dr. Cecilio Gale RBC NONE SEEN Abnormal 0-2 [facility] Comment on above: Performed By: #### F T4, VITAD, FETIBC, FERR #### [facility] [address] [place] [address] Dr. Cecilio Gale SPEC GRAVITY 1.015 Normal 1.005-<=1.0 25 [facility] Comment on above: Performed By: #### F T4, VITAD, FETIBC, FERR #### [facility] [address] [place] [address] Dr. Cecilio Gale UA PROTEIN Negative Normal NEGATIVE/ TRACE [facility] Comment on above: Performed By: #### F T4, VITAD, FETIBC, FERR #### [facility] [address] [place] [address] Dr. Cecilio Gale Urobilinogen Qn (U) 0.2 {Anita'U}/dL Normal 0.2 - 1. 0 [facility] Comment on above: Performed By: #### F T4, VITAD, FETIBC, FERR #### [facility] [address] [place] [address] Dr. Cecilio Gale WBC NONE SEEN Normal NONE SEEN [facility] Comment on above: Performed By: #### F T4, VITAD, FETIBC, FERR #### [facility] [address] [place] [address] Dr. Cecilio Gale VITAMIN D 25 OHon 01-11-2023 VIT D 25-OH 60.7 ng/mL Normal [facility] Comment on above: Performed By: #### F T4, VITAD, FETIBC, FERR #### [facility] [address] [place] [address] Dr. Cecilio Gale VIT D RANGES SEE BELOW Normal [facility] Comment on above: Result Comment: <20 ng/mL Vit D deficient 20 - <30 ng/mL Vit D insufficient 30 - 100 ng/mL Vit D sufficient >100 ng/mL Potential Toxicity Performed By: #### F T4, VITAD, FETIBC, FERR #### [facility] [address] [place] [address] Dr. Cecilio Gale LACOSAMIDEon 10-14-2022 Lacosamide 5.4 ug/mL Normal 5.0-10.0 [facility] Comment on above: Result Comment: This test was developed and its performance characteristics determined by [facility]. It has not been cleared or approved by the Food and Drug Administration. Limit of Detection 0.5 . Mean plasma concentrations following maintenance dose 200 mg/day 4.99 +/- 2.51 ug/mL 400 mg/day 9.35 +/- 4.22 ug/mL 600 mg/day 12.46 +/- 5.60 ug/mL Performed By: #### F T4, VITAD, FETIBC, FERR #### [facility] [address] [place] [address] Dr. Cecilio Gale LEVETIRACETAM, SERUM OR PLAS MAon 10-12-2022 Levetiracetam, S 26.4 ug/mL Normal 10.0-40.0 [facility] Comment on above: Performed By: #### F T4, VITAD, FETIBC, FERR #### [facility] [address] [place], [place] [address] Dr. Cecilio Gale TEGRETOLon 10-08-2022 TEGRETOL <0.5 Critically low 4.0-12.0 [facility] Comment on above: Performed By: #### C ARB #### [facility] [address] [id number] [address] Cecilio Gale General Surgery Office/Clini c [...] 50,000 intl units (1.25 mg) oral capsule, 26385 International_Unit= 1 cap(s), Oral, qWeek Allergies Depakote [...] mRNA BNT-162b2 vax 01/17/2021 Given Prophylaxis Normal [facility] Comment on above: Result Comment: Elec tronically [...] neoplasm of colon Vitamin D deficiency Normal [facility] Reminderson 09-22-2022 Reminders - From: Delmy Rebollar LPN To: N - Clinical; Sent: 09/22/2022 15:29:30 EST Show up: 08/09/2025 07:00:00 EDT Subject: colonoscopy recall Due Date/Time: 09/09/2025 07:00:00 EST Reminder/Recall Patient is due for colonoscopy 09/09/2025 due to history of tubular adenoma. Normal [facility] Pathology Noteon 09-11-2022 Pathology Note [id number]#[id number]:127 Normal [facility] Outside Colonoscopyon 2021 Outside Colonoscopy [id number]#1.00CD:127 Normal [facility] Lab Reportson 09-08-2022 Lab Reports [id number]#1.00CD:127 Normal [facility] Covid-19 PCR (CVDTB)on 08-10 SARS-CoV-2 (COVID-19) RNA CAL+probe Ql (Unsp spec) Not detected Normal NOT DETECTED [facility] Comment on above: Result Comment: This test is not yet approved or cleared by the [place] FDA. When there are no FDA-approved or cleared tests available, and other criteria are met, FDA can make tests available under an emergency access mechanism called an Emergency Use Authorization (EUA). The EUA for this test is supported by the [place] of Health and Human Service's (HHS's) declaration [...] SARS-CoV-2. Performed By: #### C VDTB #### [facility] [address] [place] [address] Dr. Cecilio Gale Pre-Certification Formon Pre-Certification Form [id number]#[id number]:127 Normal [facility] CBC W Auto Differential pane l (Bld)on 08-21-2022 Basophils (Bld) [#/Vol] 0.05 10*3/uL Normal <0.11 [facility] Comment on above: Order Comment: Speci men Type: BLOOD SPECIMEN Ordering Facility: [facility] Address: [address] [place] [address] Performed By: #### 5 7021-8 #### [facility] CLIA [id number] [address] [place] [address] 09872 Basophils/100 WBC (Bld) 0.8 % Normal [facility] Comment on above: Order Comment: Speci men Type: BLOOD SPECIMEN Ordering Facility: [facility] Address: [address] [place] [address] Performed By: #### 5 7021-8 #### [facility] CLIA [id number] [address] [place] [address] 61175 Differential cell count method Nom (Bld) Auto Normal [facility] Comment on above: Order Comment: Speci men Type: BLOOD SPECIMEN Ordering Facility: [facility] Address: [address] [place] [address] Performed By: #### 5 7021-8 #### [facility] CLIA [id number] [address] [place] [address] 08099 Eosinophils (Bld) [#/Vol] 10*3/uL Normal <0.46 [facility] Comment on above: Order Comment: Speci men Type: BLOOD SPECIMEN Ordering Facility: [facility] Address: [address] [place] [address] Performed By: #### 5 7021-8 #### [facility] CLIA [id number] [address] [place] [address] 29068 Eosinophils/100 WBC (Bld) 0.0 % Normal [facility] Comment on above: Order Comment: Speci men Type: BLOOD SPECIMEN Ordering Facility: [facility] Address: [address] [place] [address] Performed By: #### 5 7021-8 #### [facility] CLIA [id number] [address] [place] [address] 64004 Erythrocyte distribution width (RBC) [Ratio] 12.1 % Normal 11.5-15.0 [facility] Comment on above: Order Comment: Speci men Type: BLOOD SPECIMEN Ordering Facility: [facility] Address: [address] [place] [address] Performed By: #### 5 7021-8 #### [facility] CLIA [id number] [address] [place] [address] 53945 Hematocrit (Bld) [Volume fraction] 40.8 % Normal 36.0-46.0 [facility] Comment on above: Order Comment: Speci men Type: BLOOD SPECIMEN Ordering Facility: [facility] Address: [address] [place] [address] Performed By: #### 5 7021-8 #### [facility] CLIA [id number] [address] [place] [address] 13344 Hemoglobin (Bld) [Mass/Vol] 14.3 g/dL Normal 11.5-15.5 [facility] Comment on above: Order Comment: Speci men Type: BLOOD SPECIMEN Ordering Facility: [facility] Address: [address] [place] [address] Performed By: #### 5 7021-8 #### [facility] CLIA [id number] [address] [place] [address] 41503 IMMATURE GRAN % 0.2 % Normal [facility] Comment on above: Order Comment: Speci men Type: BLOOD SPECIMEN Ordering Facility: [facility] Address: [address] [place] [address] Performed By: #### 5 7021-8 #### [facility] CLIA [id number] [address] [place] [address] 20689 IMMATURE GRAN ABS <0.03 Normal <0.10 [facility] Comment on above: Order Comment: Speci men Type: BLOOD SPECIMEN Ordering Facility: [facility] Address: [address] [place] [address] Performed By: #### 5 7021-8 #### [facility] CLIA [id number] [address] [place] [address] 51767 Lymphocytes (Bld) [#/Vol] 2.64 10*3/uL Normal 1.00-4.00 [facility] Comment on above: Order Comment: Speci men Type: BLOOD SPECIMEN Ordering Facility: [facility] Address: [address] [place] [address] Performed By: #### 5 7021-8 #### [facility] CLIA [id number] [address] [place] [address] 75894 Lymphocytes/100 WBC (Bld) 41.4 % Normal [facility] Comment on above: Order Comment: Speci men Type: BLOOD SPECIMEN Ordering Facility: [facility] Address: [address] [place] [address] Performed By: #### 5 7021-8 #### [facility] CLIA [id number] [address] [place] [address] 01311 MCH (RBC) [Entitic mass] 33.2 pg Normal 26.0-34.0 [facility] Comment on above: Order Comment: Speci men Type: BLOOD SPECIMEN Ordering Facility: [facility] Address: [address] [place] [address] Performed By: #### 5 7021-8 #### [facility] CLIA [id number] [address] [place] [address] 61693 MCHC (RBC) [Mass/Vol] 35.0 g/dL Normal 30.5-36.0 [facility] Comment on above: Order Comment: Speci men Type: BLOOD SPECIMEN Ordering Facility: [facility] Address: [address] [place] [address] Performed By: #### 5 7021-8 #### [facility] CLIA [id number] [address] [place] [address] 64485 MCV (RBC) [Entitic vol] 94.7 fL Normal 80.0-100.0 [facility] Comment on above: Order Comment: Speci men Type: BLOOD SPECIMEN Ordering Facility: [facility] Address: [address] [place], [place] [address] Performed By: #### 5 7021-8 #### [facility] CLIA [id number] [address] [place] [address] 98109 Monocytes (Bld) [#/Vol] 0.61 10*3/uL Normal <0.87 [facility] Comment on above: Order Comment: Speci men Type: BLOOD SPECIMEN Ordering Facility: [facility] Address: [address] [place], [place] [address] Performed By: #### 5 7021-8 #### [facility] CLIA [id number] [address] [place] [address] 33521 Monocytes/100 WBC (Bld) 9.6 % Normal [facility] Comment on above: Order Comment: Speci men Type: BLOOD SPECIMEN Ordering Facility: [facility] Address: [address] [place], [place] [address] Performed By: #### 5 7021-8 #### [facility] CLIA [id number] [address] [place] [address] 82185 Neutrophils (Bld) [#/Vol] 3.06 10*3/uL Normal 1.45-7.50 [facility] Comment on above: Order Comment: Speci men Type: BLOOD SPECIMEN Ordering Facility: [facility] Address: [address] [place], [place] [address] Performed By: #### 5 7021-8 #### [facility] CLIA [id number] [address] [place] [address] 01763 Neutrophils/100 WBC (Bld) 48.0 % Normal [facility] Comment on above: Order Comment: Speci men Type: BLOOD SPECIMEN Ordering Facility: [facility] Address: [address] [place], [place] [address] Performed By: #### 5 7021-8 #### [facility] CLIA [id number] [address] [place] [address] Nucleated RBC (Bld) [#/Vol] 10*3/uL Normal <0.01 [facility] Comment on above: Order Comment: Speci men Type: BLOOD SPECIMEN Ordering Facility: [facility] Address: [address] [place] [address] Performed By: #### 5 7021-8 #### [facility] CLIA [id number] [address] [place] [address] 27464 Nucleated RBC/100 WBC (Bld) [Ratio] 0.0 /100 WBC Normal [facility] Comment on above: Order Comment: Speci men Type: BLOOD SPECIMEN Ordering Facility: [facility] Address: [address] [place] [address] Performed By: #### 5 7021-8 #### [facility] CLIA [id number] [address] [place] [address] 65839 Platelet mean volume (Bld) [Entitic vol] 8.3 fL Low 9.0-12.7 [facility] Comment on above: Order Comment: Speci men Type: BLOOD SPECIMEN Ordering Facility: [facility] Address: [address] [place] [address] Performed By: #### 5 7021-8 #### [facility] CLIA [id number] [address] [place] [address] 62337 Platelets (Bld) [#/Vol] 345 10*3/uL Normal 150-400 [facility] Comment on above: Order Comment: Speci men Type: BLOOD SPECIMEN Ordering Facility: [facility] Address: [address] [place] [address] Performed By: #### 5 7021-8 #### [facility] CLIA [id number] [address] [place] [address] 51554 RBC (Bld) [#/Vol] 4.31 10*6/uL Normal 3.90-5.20 [facility] Comment on above: Order Comment: Speci men Type: BLOOD SPECIMEN Ordering Facility: [facility] Address: [address] Performed By: #### 5 7021-8 #### [facility] CLIA [id number] [address] [place] [address] 78185 WBC (Bld) [#/Vol] 6.37 10*3/uL Normal 3.70-11.00 [facility] Comment on above: Order Comment: Speci men Type: BLOOD SPECIMEN Ordering Facility: [facility] Address: [address] [place], [place] [address] Performed By: #### 5 7021-8 #### [facility] CLIA [id number] [address] [place] [address] 72639 Comprehensive metabolic 2000 panelon 08-21-2022 Albumin [Mass/Vol] 4.3 g/dL Normal 3.9-4.9 [facility] Comment on above: Order Comment: Speci men Type: BLOOD SPECIMEN Ordering Facility: [facility] Address: [address] [place] [address] Performed By: #### 2 4323-8 #### [facility] CLIA [id number] [address] [place] [address] 80099 ALP [Catalytic activity/Vol] 167 U/L High 34-123 [facility] Comment on above: Order Comment: Speci men Type: BLOOD SPECIMEN Ordering Facility: [facility] Address: [address] Performed By: #### 2 4323-8 #### [facility] CLIA [id number] [address] [place] [address] 43973 ALT [Catalytic activity/Vol] 13 U/L Normal 7-38 [facility] Comment on above: Order Comment: Speci men Type: BLOOD SPECIMEN Ordering Facility: [facility] Address: [address] [address] Performed By: #### 2 4323-8 #### [facility] CLIA [id number] [address] [place] [address] Anion gap [Moles/Vol] 9 mmol/L Normal 9-18 [facility] Comment on above: Order Comment: Speci men Type: BLOOD SPECIMEN Ordering Facility: [facility] Address: [address] [place] [address] Performed By: #### 2 4323-8 #### [facility] CLIA [id number] [address] [place] [address] AST [Catalytic activity/Vol] 16 U/L Normal 13-35 [facility] Comment on above: Order Comment: Speci men Type: BLOOD SPECIMEN Ordering Facility: [facility] Address: [address] [place] [address] Performed By: #### 2 4323-8 #### [facility] CLIA [id number] [address] [place] [address] 55718 Bilirubin [Mass/Vol] 0.3 mg/dL Normal 0.2-1.3 [facility] Comment on above: Order Comment: Speci men Type: BLOOD SPECIMEN Ordering Facility: [facility] Address: [address] [place] [address] Performed By: #### 2 4323-8 #### [facility] CLIA [id number] [address] [place] [address] 59623 Calcium [Mass/Vol] 9.5 mg/dL Normal 8.5-10.2 [facility] Comment on above: Order Comment: Speci men Type: BLOOD SPECIMEN Ordering Facility: [facility] Address: [address] [place] [address] Performed By: #### 2 4323-8 #### [facility] CLIA [id number] [address] [place] [address] 25170 Chloride [Moles/Vol] 98 mmol/L Normal 97-105 [facility] Comment on above: Order Comment: Speci men Type: BLOOD SPECIMEN Ordering Facility: [facility] Address: [address] [place] [address] Performed By: #### 2 4323-8 #### [facility] CLIA [id number] [address] [place] [address] CO2 [Moles/Vol] 28 mmol/L Normal 22-30 [facility] Comment on above: Order Comment: Speci men Type: BLOOD SPECIMEN Ordering Facility: [facility] Address: [address] [place] [address] Performed By: #### 2 4323-8 #### [facility] CLIA [id number] [address] [place] [address] 65467 Creatinine [Mass/Vol] 0.74 mg/dL Normal 0.58-0.96 [facility] Comment on above: Order Comment: Speci men Type: BLOOD SPECIMEN Ordering Facility: [facility] Address: [address] [place] [address] Performed By: #### 2 4323-8 #### [facility] CLIA [id number] [address] [place] [address] 16352 ESTIMATED GLOMERULAR FILTRATION RATE 96 mL/min/1.73m??? Normal >=60 [facility] Comment on above: Order Comment: Speci men Type: BLOOD SPECIMEN Ordering Facility: [facility] Address: [address] [place] [address] Result Comment: Domonique mated Glomerular Filtration Rate [...] GFR. Performed By: #### 2 4323-8 #### [facility] CLIA [id number] [address] [place] [address] 11237 Glucose [Mass/Vol] 110 mg/dL High 74-99 [facility] Comment on above: Order Comment: Speci men Type: BLOOD SPECIMEN Ordering Facility: [facility] Address: [address] [place] [address] Result Comment: The [place] Diabetes Association (ADA) provides guidance for cutoff [...] Standards of Medical Care in Diabetes 2016, [place] Diabetes Association. Diabetes Care. 2016.39(Suppl 1). Performed By: #### 2 4323-8 #### [facility] CLIA [id number] [address] [place] [address] 44869 Potassium [Moles/Vol] 4.6 mmol/L Normal 3.7-5.1 [facility] Comment on above: Order Comment: Speci men Type: BLOOD SPECIMEN Ordering Facility: [facility] Address: [address] [place] [address] Performed By: #### 2 4323-8 #### [facility] CLIA [id number] [address] [place] [address] 96520 Protein [Mass/Vol] 7.1 g/dL Normal 6.3-8.0 [facility] Comment on above: Order Comment: Speci men Type: BLOOD SPECIMEN Ordering Facility: [facility] Address: [address] [address] Performed By: #### 2 4323-8 #### [facility] CLIA [id number] [address] [place] [address] 47402 Sodium [Moles/Vol] 135 mmol/L Low 136-144 [facility] Comment on above: Order Comment: Speci men Type: BLOOD SPECIMEN Ordering Facility: [facility] Address: [address] [address] Performed By: #### 2 4323-8 #### [facility] CLIA [id number] [address] [place] [address] Urea nitrogen [Mass/Vol] 10 mg/dL Normal 7-21 [facility] Comment on above: Order Comment: Speci men Type: BLOOD SPECIMEN Ordering Facility: [facility] Address: [address] [place] [address] Performed By: #### 2 4323-8 #### [facility] CLIA [id number] [address] [place] [address] Ferritin SerPl-mCncon 2021 Ferritin [Mass/Vol] 196.0 ng/mL Normal 14.7-205.1 [facility] Comment on above: Order Comment: Speci men Type: BLOOD SPECIMEN Ordering Facility: [facility] Address: [address] [place] [address] Performed By: #### 5 0190-8, 2275-4 #### [facility] CLIA [id number] [address] [place] [address] [place] Iron and Iron binding capaci ty panelon 08-21-2022 Iron [Mass/Vol] 133 ug/dL Normal 41-186 [facility] Comment on above: Order Comment: Speci men Type: BLOOD SPECIMEN Ordering Facility: [facility] Address: [address] [place] [address] Performed By: #### 5 0190-8, 2275-4 #### [facility] CLIA [id number] [address] [place] [address] [place] Iron binding capacity [Mass/Vol] 280 ug/dL Normal 232-386 [facility] Comment on above: Order Comment: Speci men Type: BLOOD SPECIMEN Ordering Facility: [facility] Address: [address] [place], [place] [address] Performed By: #### 5 0190-8, 2275-4 #### [facility] CLIA [id number] [address] [place] [address] [place] Iron/TIBC [Molar ratio] 47.5 % Normal 15.0-57.0 [facility] Comment on above: Order Comment: Speci men Type: BLOOD SPECIMEN Ordering Facility: [facility] Address: [address] [place] [address] [place] [address] Performed By: #### 5 0190-8, 2276-4 #### [facility] CLIA [id number] [address] [place] [address] [place] Consent for Procedure/Surger yon 08-05-2022 Consent for Procedure/Surgery [id number]#[id number]:127 Normal [facility] Ambulatory Visit Summaryon 0 08-04-2022 Ambulatory Visit Summary MIKEY NEWTON Anderson :1965 Visit Date:08/04/2022 Ambulatory Visit Instructions [...] neoplasm of colon Vitamin D deficiency Normal [facility] Comprehensive metabolic 2000 panelon 07-30-2022 Albumin [Mass/Vol] 4.4 g/dL 3.9 - 4.9 g/dL [facility] ALP [Catalytic activity/Vol] 166 U/L High 34 - 123 U/L [facility] ALT [Catalytic activity/Vol] 18 U/L 7 - 38 U/L [facility] Anion gap [Moles/Vol] 11 mmol/L 9 - 18 mmol/L [facility] AST [Catalytic activity/Vol] 21 U/L 13 - 35 U/L [facility] Bilirubin [Mass/Vol] 0.4 mg/dL 0.2 - 1.3 mg/dL [facility] Calcium [Mass/Vol] 9.5 mg/dL 8.5 - 10. 2 mg/dL [facility] Chloride [Moles/Vol] 98 mmol/L 97 - 105 mmol/L [facility] CO2 [Moles/Vol] 25 mmol/L 22 - 30 mmol/L [facility] Creatinine [Mass/Vol] 0.66 mg/dL 0.58 - 0.96 mg/dL [facility] Estimated Glomerular Filtration Rate 104 mL/min/1.73m >=60 mL/min/1.73 m [facility] Glucose [Mass/Vol] 91 mg/dL 74 - 99 mg/dL [facility] Potassium [Moles/Vol] 4.8 mmol/L 3.7 - 5.1 mmol/L [facility] Protein [Mass/Vol] 7.3 g/dL 6.3 - 8.0 g/dL [facility] Sodium [Moles/Vol] 134 mmol/L Low 136 - 144 mmol/L [facility] Urea nitrogen [Mass/Vol] 8 mg/dL 7 - 21 mg/dL [facility] FERRITIN BLDon 07-30-2022 Ferritin [Mass/Vol] 176.0 ng/mL 14.7 - 205.1 ng/mL [facility] Iron and Iron binding capaci ty panelon 07-30-2022 Iron [Mass/Vol] 149 ug/dL 41 - 186 ug/dL [facility] Iron binding capacity [Mass/Vol] 273 ug/dL 232 - 386 ug/dL [facility] Iron/TIBC [Molar ratio] 54.6 % 15.0 - 57.0 % [facility] CBC W Auto Differential pane l (Bld)on 07-29-2022 Basophils (Bld) [#/Vol] 0.05 10*3/uL Normal <0.11 [facility] Comment on above: Order Comment: Speci men Type: BLOOD SPECIMEN Ordering Facility: [facility] Address: [address] [place] [address] Performed By: #### 5 7021-8 #### [facility] CLIA [id number] [address] [place] [address] 91700 Basophils/100 WBC (Bld) 0.9 % Normal [facility] Comment on above: Order Comment: Speci men Type: BLOOD SPECIMEN Ordering Facility: [facility] Address: [address] [place] [address] Performed By: #### 5 7021-8 #### [facility] CLIA [id number] [address] [place] [address] 97826 Differential cell count method Nom (Bld) Auto Normal [facility] Comment on above: Order Comment: Speci men Type: BLOOD SPECIMEN Ordering Facility: [facility] Address: [address] [address] Performed By: #### 5 7021-8 #### [facility] CLIA [id number] [address] [place] [address] 14843 Eosinophils (Bld) [#/Vol] 10*3/uL Normal <0.46 [facility] [place] Comment on above: Order Comment: Speci men Type: BLOOD SPECIMEN Ordering Facility: [facility] Address: [address] [place] [address] Performed By: #### 5 7021-8 #### [facility] CLIA [id number] [address] [place] [address] 87126 Eosinophils/100 WBC (Bld) 0.0 % Normal [facility] Comment on above: Order Comment: Speci men Type: BLOOD SPECIMEN Ordering Facility: [facility] Address: [address] [place] [address] Performed By: #### 5 7021-8 #### [facility] CLIA [id number] [address] [place] [address] 97603 Erythrocyte distribution width (RBC) [Ratio] 12.1 % Normal 11.5-15.0 [facility] Comment on above: Order Comment: Speci men Type: BLOOD SPECIMEN Ordering Facility: [facility] Address: [address] [place] [address] Performed By: #### 5 7021-8 #### [facility] CLIA [id number] [address] [place] [address] 87755 Hematocrit (Bld) [Volume fraction] 41.6 % Normal 36.0-46.0 [facility] Comment on above: Order Comment: Speci men Type: BLOOD SPECIMEN Ordering Facility: [facility] Address: [address] [place] [address] Performed By: #### 5 7021-8 #### [facility] CLIA [id number] [address] [place] [address] 15283 Hemoglobin (Bld) [Mass/Vol] 14.5 g/dL Normal 11.5-15.5 [facility] Comment on above: Order Comment: Speci men Type: BLOOD SPECIMEN Ordering Facility: [facility] Address: [address] [place] [address] Performed By: #### 5 7021-8 #### [facility] CLIA [id number] [address] [place] [address] IMMATURE GRAN % 0.3 % Normal [facility] Comment on above: Order Comment: Speci men Type: BLOOD SPECIMEN Ordering Facility: [facility] Address: [address] [place] [address] Performed By: #### 5 7021-8 #### [facility] CLIA [id number] [address] [place] [address] 90793 IMMATURE GRAN ABS <0.03 Normal <0.10 [facility] Comment on above: Order Comment: Speci men Type: BLOOD SPECIMEN Ordering Facility: [facility] Address: [address] [place] [address] Performed By: #### 5 7021-8 #### [facility] CLIA [id number] [address] [place] [address] 07200 Lymphocytes (Bld) [#/Vol] 2.09 10*3/uL Normal 1.00-4.00 [facility] Comment on above: Order Comment: Speci men Type: BLOOD SPECIMEN Ordering Facility: [facility] Address: [address] [place] [address] Performed By: #### 5 7021-8 #### [facility] CLIA [id number] [address] [place] [address] 23266 Lymphocytes/100 WBC (Bld) 36.0 % Normal [facility] Comment on above: Order Comment: Speci men Type: BLOOD SPECIMEN Ordering Facility: [facility] Address: [address] [place] [address] Performed By: #### 5 7021-8 #### [facility] CLIA [id number] [address] [place] [address] MCH (RBC) [Entitic mass] 33.0 pg Normal 26.0-34.0 [facility] Comment on above: Order Comment: Speci men Type: BLOOD SPECIMEN Ordering Facility: [facility] Address: [address] [place] [address] Performed By: #### 5 7021-8 #### [facility] CLIA [id number] [address] [place] [address] 90894 MCHC (RBC) [Mass/Vol] 34.9 g/dL Normal 30.5-36.0 [facility] Comment on above: Order Comment: Speci men Type: BLOOD SPECIMEN Ordering Facility: [facility] Address: [address] [place] [address] Performed By: #### 5 7021-8 #### [facility] CLIA [id number] [address] [place] [address] 22134 MCV (RBC) [Entitic vol] 94.8 fL Normal 80.0-100.0 [facility] Comment on above: Order Comment: Speci men Type: BLOOD SPECIMEN Ordering Facility: [facility] Address: [address] [place] [address] Performed By: #### 5 7021-8 #### [facility] CLIA [id number] [address] [place] [address] 56041 Monocytes (Bld) [#/Vol] 0.44 10*3/uL Normal <0.87 [facility] Comment on above: Order Comment: Speci men Type: BLOOD SPECIMEN Ordering Facility: [facility] Address: [address] [place], [place] [address] Performed By: #### 5 7021-8 #### [facility] CLIA [id number] [address] [place] [address] 89990 Monocytes/100 WBC (Bld) 7.6 % Normal [facility] Comment on above: Order Comment: Speci men Type: BLOOD SPECIMEN Ordering Facility: [facility] Address: [address] Performed By: #### 5 7021-8 #### [facility] CLIA [id number] [address] [place] [address] 16421 Neutrophils (Bld) [#/Vol] 3.21 10*3/uL Normal 1.45-7.50 [facility] Comment on above: Order Comment: Speci men Type: BLOOD SPECIMEN Ordering Facility: [facility] Address: [address] [place], [place] [address] Performed By: #### 5 7021-8 #### [facility] CLIA [id number] [address] [place] [address] 37718 Neutrophils/100 WBC (Bld) 55.2 % Normal [facility] Comment on above: Order Comment: Speci men Type: BLOOD SPECIMEN Ordering Facility: [facility] Address: [address] [place], [place] [address] Performed By: #### 5 7021-8 #### [facility] CLIA [id number] [address] [place] [address] 24463 Nucleated RBC (Bld) [#/Vol] 10*3/uL Normal <0.01 [facility] Comment on above: Order Comment: Speci men Type: BLOOD SPECIMEN Ordering Facility: [facility] Address: [address] [place], [place] [address] Performed By: #### 5 7021-8 #### [facility] CLIA [id number] [address] [place] [address] 07565 Nucleated RBC/100 WBC (Bld) [Ratio] 0.0 /100 WBC Normal [facility] Comment on above: Order Comment: Speci men Type: BLOOD SPECIMEN Ordering Facility: [facility] Address: [address] [place], [place] [address] Performed By: #### 5 7021-8 #### [facility] CLIA [id number] [address] [place] [address] 57115 Platelet mean volume (Bld) [Entitic vol] 8.6 fL Low 9.0-12.7 [facility] Comment on above: Order Comment: Speci men Type: BLOOD SPECIMEN Ordering Facility: [facility] Address: [address] [place] [address] Performed By: #### 5 7021-8 #### [facility] CLIA [id number] [address] [place] [address] 08222 Platelets (Bld) [#/Vol] 311 10*3/uL Normal 150-400 [facility] Comment on above: Order Comment: Speci men Type: BLOOD SPECIMEN Ordering Facility: [facility] Address: [address] [place] [address] Performed By: #### 5 7021-8 #### [facility] CLIA [id number] [address] [place] [address] 88123 RBC (Bld) [#/Vol] 4.39 10*6/uL Normal 3.90-5.20 [facility] Comment on above: Order Comment: Speci men Type: BLOOD SPECIMEN Ordering Facility: [facility] Address: [address] [place] [address] Performed By: #### 5 7021-8 #### [facility] CLIA [id number] [address] [place] [address] 23458 WBC (Bld) [#/Vol] 5.81 10*3/uL Normal 3.70-11.00 [facility] Comment on above: Order Comment: Speci men Type: BLOOD SPECIMEN Ordering Facility: [facility] Address: [address] [place] [address] Performed By: #### 5 7021-8 #### [facility] CLIA [id number] [address] [place] [address] 47426 Abs Immature Gran <0.10 k/uL [facility] Basophils (Bld) [#/Vol] 0.05 10*3/uL <0.11 k/uL [facility] Basophils/100 WBC (Bld) 0.9 % [facility] Differential cell count method Nom (Bld) Auto [facility] Eosinophils (Bld) [#/Vol] <0.46 k/uL [facility] Eosinophils/100 WBC (Bld) 0.0 % [facility] Erythrocyte distribution width (RBC) [Ratio] 12.1 % 11.5 - 15.0 % [facility] Hematocrit (Bld) [Volume fraction] 41.6 % 36.0 - 46.0 % [facility] Hemoglobin (Bld) [Mass/Vol] 14.5 g/dL 11.5 - 15.5 g/dL [facility] Immature Gran % 0.3 % [facility] Lymphocytes (Bld) [#/Vol] 2.09 10*3/uL 1.00 - 4.00 k/uL [facility] Lymphocytes/100 WBC (Bld) 36.0 % [facility] MCH (RBC) [Entitic mass] 33.0 pg 26.0 - 34.0 pg [facility] MCHC (RBC) [Mass/Vol] 34.9 g/dL 30.5 - 36.0 g/dL [facility] MCV (RBC) [Entitic vol] 94.8 fL 80.0 - 100.0 fL [facility] Monocytes (Bld) [#/Vol] 0.44 10*3/uL <0.87 k/uL [facility] Monocytes/100 WBC (Bld) 7.6 % [facility] Neutrophils (Bld) [#/Vol] 3.21 10*3/uL 1.45 - 7.50 k/uL [facility] Neutrophils/100 WBC (Bld) 55.2 % [facility] Nucleated RBC (Bld) [#/Vol] <0.01 k/uL [facility] Nucleated RBC/100 WBC (Bld) [Ratio] 0.0 /100 WBC [facility] Platelet mean volume (Bld) [Entitic vol] 8.6 fL Low 9.0 - 12.7 fL [facility] Platelets (Bld) [#/Vol] 311 10*3/uL 150 - 400 k/uL [facility] RBC (Bld) [#/Vol] 4.39 10*6/uL 3.90 - 5.2 0 m/uL [facility] WBC (Bld) [#/Vol] 5.81 10*3/uL 3.70 - 11.00 k/uL [facility] CNOVSPon 07-29-2022 CNOVSP Visit (SP) Office (Rachael ALFARO) MIKEY NEWTON ([id number]) 1965 F Date Time Provider Department 07/29/22 11:00 AM RICCI GARCIA During your visit today, we recorded the following information about you: Temperature Pulse Respiration Blood pressure 97.1 degrees 83/minute 16/minute 152/89 Weight Height 123 kg 1.651 m Ricci Garcia MD 07/30/2022 12:33 PM Signed NAME: Mikey Newton CLINIC NO.: [id number] DATE OF SERVICE: July 29, 2022 Referring [...] COLONSCOPY SCR (more content not included)... Normal [facility] Comprehensive metabolic 2000 panelon 07-29-2022 Albumin [Mass/Vol] 4.4 g/dL Normal 3.9-4.9 [facility] Comment on above: Order Comment: Speci men Type: BLOOD SPECIMEN Ordering Facility: [facility] Address: [address] [place] [address] Performed By: #### 2 4323-8 #### [facility] CLIA [id number] [address] [place] [address] [place] [facility] ALP [Catalytic activity/Vol] 166 U/L High 34-123 [facility] Comment on above: Order Comment: Speci men Type: BLOOD SPECIMEN Ordering Facility: [facility] Address: [address] [place], [place] [address] Performed By: #### 2 4323-8 #### [facility] CLIA [id number] [address] [place] [address] [place] ALT [Catalytic activity/Vol] 18 U/L Normal 7-38 [facility] Comment on above: Order Comment: Speci men Type: BLOOD SPECIMEN Ordering Facility: [facility] Address: [address] [place], [place] [address] Performed By: #### 2 4323-8 #### [facility] CLIA [id number] [address] [place] [address] [place] Anion gap [Moles/Vol] 11 mmol/L Normal 9-18 [facility] Comment on above: Order Comment: Speci men Type: BLOOD SPECIMEN Ordering Facility: [facility] Address: [address] [place], [place] [address] Performed By: #### 2 4323-8 #### [facility] CLIA [id number] [address] [place] [address] [place] AST [Catalytic activity/Vol] 21 U/L Normal 13-35 [facility] Comment on above: Order Comment: Speci men Type: BLOOD SPECIMEN Ordering Facility: [facility] Address: [address] [place], [place] [address] Performed By: #### 2 4323-8 #### [facility] CLIA [id number] [address] [place] [address] [place] Bilirubin [Mass/Vol] 0.4 mg/dL Normal 0.2-1.3 [facility] Comment on above: Order Comment: Speci men Type: BLOOD SPECIMEN Ordering Facility: [facility] Address: [address] [place] [address] Performed By: #### 2 4323-8 #### [facility] CLIA [id number] [address] [place] [address] [place] Calcium [Mass/Vol] 9.5 mg/dL Normal 8.5-10.2 [facility] Comment on above: Order Comment: Speci men Type: BLOOD SPECIMEN Ordering Facility: [facility] Address: [address] [place] [address] Performed By: #### 2 4323-8 #### [facility] CLIA [id number] [address] [place] [address] [place] Chloride [Moles/Vol] 98 mmol/L Normal 97-105 [facility] Comment on above: Order Comment: Speci men Type: BLOOD SPECIMEN Ordering Facility: [facility] Address: [address] [place] [address] Performed By: #### 2 4323-8 #### [facility] CLIA [id number] [address] [place] [address] [place] CO2 [Moles/Vol] 25 mmol/L Normal 22-30 [facility] Comment on above: Order Comment: Speci men Type: BLOOD SPECIMEN Ordering Facility: [facility] Address: [address] [place] [address] Performed By: #### 2 4323-8 #### [facility] CLIA [id number] [address] [place] [address] [place] Creatinine [Mass/Vol] 0.66 mg/dL Normal 0.58-0.96 [facility] Comment on above: Order Comment: Speci men Type: BLOOD SPECIMEN Ordering Facility: [facility] Address: [address] [place] [address] Performed By: #### 2 4323-8 #### [facility] CLIA [id number] [address] [place] [address] OF [facility] ESTIMATED GLOMERULAR FILTRATION RATE 104 mL/min/1.73m??? Normal >=60 [facility] Comment on above: Order Comment: Speci men Type: BLOOD SPECIMEN Ordering Facility: [facility] Address: [address] [place], [place] [address] Result Comment: Domonique mated Glomerular Filtration Rate [...] GFR. Performed By: #### 2 4323-8 #### [facility] CLIA [id number] [address] [place] [address] [place] Glucose [Mass/Vol] 91 mg/dL Normal 74-99 [facility] Comment on above: Order Comment: Jesus bundy Type: BLOOD SPECIMEN Ordering Facility: [facility] Address: [address] [place] [address] Result Comment: The [place] Diabetes Association (ADA) provides guidance for cutoff [...] Standards of Medical Care in Diabetes 2016, [place] [employer]. Diabetes Care. 2016.39(Suppl 1). Performed By: #### 2 4323-8 #### [facility] CLIA [id number] [address] [place] [address] [place] Potassium [Moles/Vol] 4.8 mmol/L Normal 3.7-5.1 [facility] Comment on above: Order Comment: Speci men Type: BLOOD SPECIMEN Ordering Facility: [facility] Address: [address] [place] [address] Performed By: #### 2 4323-8 #### [facility] CLIA [id number] [address] [place] [address] [place] Protein [Mass/Vol] 7.3 g/dL Normal 6.3-8.0 [facility] Comment on above: Order Comment: Jesus bundy Type: BLOOD SPECIMEN Ordering Facility: [facility] Address: [address] [place] [address] Performed By: #### 2 4323-8 #### [facility] CLIA [id number] [address] [place] [address] [place] Sodium [Moles/Vol] 134 mmol/L Low 136-144 [facility] Comment on above: Order Comment: Speci men Type: BLOOD SPECIMEN Ordering Facility: [facility] Address: [address] [place] [address] Performed By: #### 2 4323-8 #### [facility] CLIA [id number] [address] [place] [address] [place] Urea nitrogen [Mass/Vol] 8 mg/dL Normal 7- [facility] Comment on above: Order Comment: Speci men Type: BLOOD SPECIMEN Ordering Facility: [facility] Address: [address] [place] [address] Performed By: #### 2 4323-8 #### [facility] CLIA [id number] [address] [place] [address] [place] Ferritin SerPl-mCncon 2021 Ferritin [Mass/Vol] 176.0 ng/mL Normal 14.7-205.1 [facility] Comment on above: Order Comment: Speci men Type: BLOOD SPECIMEN Ordering Facility: [facility] Address: [address] [place] [address] Performed By: #### 2 276-4, 83085-9 #### [facility] CLIA [id number] [address] [place] [address] [place] HFE (HEMOCHROMATOSIS)on 07-10 INTERPRETATION (HEMDNA) Normal [facility] Comment on above: Order Comment: Speci men Type: BLOOD SPECIMEN Ordering Facility: 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 Disclaimer: This test was developed and its performance characteristics determined by [facility] Medicine [place] ([facility]). It has not been cleared or approved by the FDA. [facility] is regulated under CLIA as certified to perform high- complexity testing. This test is used for clinical purposes. It should not be regarded as investigational or for research. Testing and interpretation performed at [facility], [address] [place] [address]. CLIA Number: [id number] As reviewed by Joshua Mendoza, PhD, FAC Performed By: #### H ROSALIE #### [facility] CLIA [id number] [address] [place] [address] [place] Iron and Iron binding capaci ty panelon 07-29-2022 Iron [Mass/Vol] 149 ug/dL Normal 41-186 [facility] Comment on above: Order Comment: Speci men Type: BLOOD SPECIMEN Ordering Facility: [facility] Address: [address] [place] [address] Performed By: #### 2 276-4, 11325-7 #### [facility] CLIA [id number] [address] [place] [address] [place] Iron binding capacity [Mass/Vol] 273 ug/dL Normal 232-386 [facility] Comment on above: Order Comment: Speci men Type: BLOOD SPECIMEN Ordering Facility: [facility] Address: [address] [place] [address] Performed By: #### 2 276-4, 95460-5 #### [facility] CLIA [id number] [address] [place] [address] [place] Iron/TIBC [Molar ratio] 54.6 % Normal 15.0-57.0 [facility] Comment on above: Order Comment: Speci men Type: BLOOD SPECIMEN Ordering Facility: [facility] Address: [address] [place] [address] Performed By: #### 2 276-4, 02923-2 #### [facility] CLIA [id number] [address] [place] [address] [place] UA RANDOM W/MICROSCOPICon BACTERIA NONE SEEN Normal NONE SEEN [facility] Comment on above: Performed By: #### F T4, VITAD, FETIBC, FERR #### [facility] [address] [place] [address] Dr. Cecilio Gale Bilirubin Ql (U) Negative Normal NEGATIVE [facility] Comment on above: Performed By: #### F T4, VITAD, FETIBC, FERR #### [facility] [address] [place] [address] Dr. Cecilio Gale CAST NONE SEEN Normal NONE SEEN [facility] Comment on above: Performed By: #### F T4, VITAD, FETIBC, FERR #### [facility] [address] [place] [address] Dr. Cecilio Gale Clarity (U) CLEAR Normal CLEAR [facility] Comment on above: Performed By: #### F T4, VITAD, FETIBC, FERR #### [facility] [address] [place] [address] Dr. Cecilio Gale Color (U) LT. YELLOW Normal YELLOW [facility] Comment on above: Performed By: #### F T4, VITAD, FETIBC, FERR #### [facility] [address] [place] [address] Dr. Cecilio Gale Crystals LM Nom (Urine sed) NONE SEEN Normal NONE SEEN [facility] Comment on above: Performed By: #### F T4, VITAD, FETIBC, FERR #### [facility] [address] [place] [address] Dr. Cecilio Gale Epithelial cells LM Ql (Urine sed) FEW Abnormal NONE SEEN /RARE [facility] Comment on above: Performed By: #### F T4, VITAD, FETIBC, FERR #### [facility] [address] [place] [address] Dr. Cecilio Gale Glucose Ql (U) Negative Normal NEGATIVE [facility] Comment on above: Performed By: #### F T4, VITAD, FETIBC, FERR #### [facility] [address] [place] [address] Dr. Cecilio Gale Hemoglobin Ql (U) Negative Normal NEGATIVE [facility] Comment on above: Performed By: #### F T4, VITAD, FETIBC, FERR #### [facility] [address] [place] [address] Dr. Cecilio Gale Ketones Ql (U) Negative Normal NEGATIVE [facility] Comment on above: Performed By: #### F T4, VITAD, FETIBC, FERR #### [facility] [address] [place] [address] Dr. Cecilio Gael LEUKOCYTES Negative Normal NEGATIVE [facility] Comment on above: Performed By: #### F T4, VITAD, FETIBC, FERR #### [facility] [address] [place] [address] Dr. Cecilio Gale MUCOUS NONE SEEN Normal NONE SEEN [facility] Comment on above: Performed By: #### F T4, VITAD, FETIBC, FERR #### [facility] [address] [address] [address] Cecilio Gale Nitrite Ql (U) Negative Normal NEGATIVE [facility] Comment on above: Performed By: #### F T4, VITAD, FETIBC, FERR #### [facility] [address] [place] [address] Dr. Cecilio Gale pH (U) 7.0 [pH] Normal 5-9 [facility] Comment on above: Performed By: #### F T4, VITAD, FETIBC, FERR #### [facility] [address] [place] [address] Dr. Cecilio Gale RBC NONE SEEN Abnormal 0-2 [facility] Comment on above: Performed By: #### F T4, VITAD, FETIBC, FERR #### [facility] [address] [place] [address] Dr. Cecilio Gale SPEC GRAVITY 1.010 Normal 1.005-<=1.[address] [place] [address] Comment on above: Performed By: #### F T4, VITAD, FETIBC, FERR #### [facility] [address] [place] [address] Dr. Cecilio Gale UA PROTEIN Negative Normal NEGATIVE/ TRACE [facility] Comment on above: Performed By: #### F T4, VITAD, FETIBC, FERR #### [facility] [address] [place] [address] Dr. Cecilio Gale Urobilinogen Qn (U) 0.2 {Anita'U}/dL Normal 0.2 - 1. 0 [facility] Comment on above: Performed By: #### F T4, VITAD, FETIBC, FERR #### [facility] [address] [place] [address] Dr. Cecilio Gale WBC NONE SEEN Normal NONE SEEN [facility] Comment on above: Performed By: #### F T4, VITAD, FETIBC, FERR #### [facility] [address] [place] [address] Dr. Cecilio Gale Physician Referralon 022 Physician Referral [id number] Normal [facility] ALKP ISOENZYMESon 07-10-2022 ALP [Catalytic activity/Vol] 159 U/L Critically high 44-121 [facility] Comment on above: Performed By: #### A LKPISO #### [facility] [address] [address] [address] Cecilio Gale Bone Fraction: 36 % Normal 14-68 [facility] Comment on above: Performed By: #### A LKPISO #### [facility] [address] [address] [address] Cecilio Gale Intestinal Frac.: 4 % Normal 0-18 [facility] Comment on above: Performed By: #### A LKPISO #### [facility] [address] [place] [address] Dr. Cecilio Gale Liver Fraction: 60 % Normal 18-85 [facility] Comment on above: Performed By: #### A LKPISO #### [facility] [address] [address] [address] Cecilio Gale VIT D 25-OH LABCORPon 2021 Vitamin D, 25-Hydroxy 50.4 ng/mL Normal 30.0-100.0 [facility] Comment on above: Result Comment: Millie min D deficiency has been defined by the [place] of [employer] and an Endocrine Society practice guideline as a level of serum 25-OH vitamin D less than 20 ng/mL (1,2). The Endocrine Society went on to further define vitamin D insufficiency as a level between 21 and 29 ng/mL (2). 1. IOM ([place] of [employer]). 2010. Dietary reference intakes for calcium and D. [place]: The National Academies Press. 2. Sujatha MF, Vaishali NC, Larisa AZAR, et al. Evaluation, treatment, and prevention of vitamin D deficiency: an Endocrine Society clinical practice guideline. JCEM. 2010; 96(7):1911-30. Performed By: #### F T4, VITAD, FETIBC, FERR #### [facility] [address] [address] [address] Cecilio Gale CBC AUTO DIFFon 07-08-2022 BASO # 0.0 103/ul Normal 0.0-0.1 [facility] Comment on above: Performed By: #### C BC #### [facility] [address] [place] [address] Dr. Cecilio Gale Basophils/100 WBC (Bld) 0.6 % Normal 0.2-2.0 [facility] Comment on above: Performed By: #### C BC #### [facility] [address] [place] [address] Dr. Cecilio Gale EO # 0.0 103/ul Normal 0.0-0.7 [facility] Comment on above: Performed By: #### C BC #### [facility] [address] [place] [address] Dr. Cecilio Gale Eosinophils/100 WBC (Bld) 0.0 % Critically low 0.9-7.0 [facility] Comment on above: Performed By: #### C BC #### [facility] [address] [place] [address] Dr. Cecilio Gale Erythrocyte distribution width (RBC) [Ratio] 11.8 % Normal 11.0-15.0 [facility] Comment on above: Performed By: #### C BC #### [facility] [address] [place] [address] Dr. Cecilio Gale Hematocrit (Bld) [Volume fraction] 40.2 % Normal 36.0-48.0 [facility] Comment on above: Performed By: #### C BC #### [facility] [address] [place] [address] Dr. Cecilio Gale Hemoglobin (Bld) [Mass/Vol] 14.5 g/dL Normal 12.0-16.0 [facility] Comment on above: Performed By: #### C BC #### [facility] [address] [place] [address] Dr. Cecilio Gale IG # 0.01 10e3/ul Normal 0.00-0.03 [facility] Comment on above: Performed By: #### C BC #### [facility] [address] [place] [address] Dr. Cecilio Gale IG % 0.2 % Normal 0.0-0.5 [facility] Comment on above: Performed By: #### C BC #### [facility] [address] [place] [address] Dr. Cecilio Gale LYMPH # 2.1 103/ul Normal 1.2-3.8 [facility] Comment on above: Performed By: #### C BC #### [facility] [address] [place] [address] Dr. Cecilio Gale Lymphocytes/100 WBC (Bld) 45.9 % Normal 20.5-60.0 [facility] Comment on above: Performed By: #### C BC #### [facility] [address] [place] [address] Dr. Cecilio Gale MANUAL DIFF REQ NO Normal [facility] Comment on above: Performed By: #### C BC #### [facility] [address] [place] [address] Dr. Cecilio Gale MCH (RBC) [Entitic mass] 33.0 pg Normal 26.7-34.0 [facility] Comment on above: Performed By: #### C BC #### [facility] [address] [place] [address] Dr. Cecilio Gale MCHC (RBC) [Mass/Vol] 36.1 g/dL Critically high 29.9-35.2 [facility] Comment on above: Performed By: #### C BC #### [facility] [address] [place] [address] Dr. Cecilio Gale MCV (RBC) [Entitic vol] 91.6 fL Normal 81.0-99.0 [facility] Comment on above: Performed By: #### C BC #### [facility] [address] [place] [address] Dr. Cecilio Gale MONO # 0.4 103/ul Normal 0.3-0.8 [facility] Comment on above: Performed By: #### C BC #### [facility] [address] [place] [address] Dr. Cecilio Gale Monocytes/100 WBC (Bld) 8.9 % Normal 1.7-12.0 [facility] Comment on above: Performed By: #### C BC #### [facility] [address] [place] [address] Dr. Cecilio Gale NEUT # 2.1 103/ul Normal 1.4-6.5 [facility] Comment on above: Performed By: #### C BC #### [facility] [address] [place] [address] Dr. Cecilio Gale Neutrophils/100 WBC (Bld) 44.4 % Normal 43.0-75.0 [facility] Comment on above: Performed By: #### C BC #### [facility] [address] [place] [address] Dr. Cecilio Gale Platelet mean volume (Bld) [Entitic vol] 8.4 fL Critically low 9.5-13.5 [facility] Comment on above: Performed By: #### C BC #### [facility] [address] [place] [address] Dr. Cecilio Gale PLT 349 103/ul Normal 150-450 [facility] Comment on above: Performed By: #### C BC #### [facility] [address] [place] [address] Dr. Cecilio Gale RBC 4.39 106/ul Normal 4.20-5.40 [facility] Comment on above: Performed By: #### C BC #### [facility] [address] [place] [address] Dr. Cecilio Gale WBC 4.6 103/ul Normal 4.0-11.0 [facility] Comment on above: Performed By: #### C BC #### [facility] [address] [place] [address] Dr. Cecilio Gale CULTURE URINEon 07-08-2022 CULTURE URINE Culture Observations : MODERATE GROWTH OF MIXED GENITAL CAMERON. NO POTENTIAL PATHOGENS SEEN. Normal [facility] Comment on above: Performed By: #### F T4, VITAD, FETIBC, FERR #### [facility] [address] [place] [address] Dr. Cecilio Gale FERRITINon 07-08-2022 Ferritin [Mass/Vol] 182.0 ng/mL Normal 8.0-252.0 [facility] Comment on above: Performed By: #### F T4, VITAD, FETIBC, FERR #### [facility] [address] [place] [address] Dr. Cecilio Gale FREE T3on 07-08-2022 FREE T3 2.02 pg/mlL Critically low 2.18-3.98 [facility] Comment on above: Performed By: #### F T4, VITAD, FETIBC, FERR #### [facility] [address] [place] [address] Dr. Cecilio Gale FREE T4on 07-08-2022 Free T4 [Mass/Vol] 0.98 ng/dL Normal 0.76-1.46 [facility] Comment on above: Performed By: #### F T4, VITAD, FETIBC, FERR #### [facility] [address] [place] [address] Dr. Cecilio Gale GLYCOHEMOGLOBIN A1Con 2021 ADA RECOMMENDATION SEE BELOW Normal [facility] Comment on above: Result Comment: ADA RECOMMENDED LIMIT 4.0 - 6.0 ADA THERAPEUTIC TARGET < 7.0 ACTION SUGGESTED > 7.0 Performed By: #### A 1C #### [facility] [address] [place] [address] Dr. Cecilio Gale Glucose [Mass/Vol] 105 mg/dL Normal [facility] Comment on above: Performed By: #### A 1C #### [facility] [address] [place] [address] Dr. Cecilio Gale HbA1c (Bld) [Mass fraction] 5.3 % Normal 4.5-6.2 [facility] Comment on above: Performed By: #### A 1C #### [facility] [address] [place] [address] Dr. Cecilio Gale IRON AND TIBCon 07-08-2022 % SATURATION 79.9 % Normal [facility] Comment on above: Performed By: #### F T4, VITAD, FETIBC, FERR #### [facility] [address] [address] [address] Cecilio Gale Iron [Mass/Vol] 219.0 ug/dL Critically high 50.0-170.0 [facility] Comment on above: Performed By: #### F T4, VITAD, FETIBC, FERR #### [facility] [address] [address] [address] Cecilio Gale TIBC DIRECT 274.0 ug/dL Normal 250.0-450.0 [facility] Comment on above: Performed By: #### F T4, VITAD, FETIBC, FERR #### [facility] [address] [place] [address] Dr. Cecilio Gale LIPID PROFILEon 07-08-2022 CHOL-HDL RATIO NORM SEE BELOW Normal [facility] Comment on above: Result Comment: 3.3 - 4.4 LOW RISK 4.4 - 7.1 AVERAGE RISK 7.1 - 11.0 MODERATE RISK >11.0 HIGH RISK Performed By: #### F T4, VITAD, FETIBC, FERR #### [facility] [address] [place] [address] Dr. Cecilio Gale Cholesterol [Mass/Vol] 215 mg/dL Critically high <=200 [facility] Comment on above: Performed By: #### F T4, VITAD, FETIBC, FERR #### [facility] [address] [address] [address] Cecilio Gale Cholesterol in HDL [Mass/Vol] 98 mg/dL Critically high 40-60 [facility] Comment on above: Performed By: #### F T4, VITAD, FETIBC, FERR #### [facility] [address] [address] [address] Cecilio Gale Cholesterol in LDL [Mass/Vol] 105.4 mg/dL Normal [facility] Comment on above: Performed By: #### F T4, VITAD, FETIBC, FERR #### [facility] [address] [place] [address] Dr. Cecilio Gale Cholesterol.total/C holesterol in HDL [Mass ratio] 2.2 {ratio} Normal [facility] Comment on above: Performed By: #### F T4, VITAD, FETIBC, FERR #### [facility] [address] [place] [address] Dr. Cecilio Gale HDL NORMAL > or = 60 mg/dl - LO W CARDIOVASCULAR RISK <40 mg/dl - HIGH CARDIOVASCULAR RISK Normal [facility] Comment on above: Performed By: #### F T4, VITAD, FETIBC, FERR #### [facility] [address] [place] [address] Dr. Cecilio Gale LDL CALC NORMAL SEE BELOW Normal [facility] Comment on above: Result Comment: <100 mg/dl OPTIMAL 100 - 129 mg/dl NEAR OR ABOVE OPTIMAL 130 - 159 mg/dl BORDERLINE HIGH 160 - 189 mg/dl HIGH >190 mg/dl VERY HIGH Performed By: #### F T4, VITAD, FETIBC, FERR #### [facility] [address] [place] [address] Dr. Cecilio Gale Triglyceride [Mass/Vol] 58 mg/dL Normal <=150 [facility] Comment on above: Performed By: #### F T4, VITAD, FETIBC, FERR #### [facility] [address] [place] [address] Dr. Cecilio Gale VLDL CALC 11.6 mg/dL Normal [facility] Comment on above: Performed By: #### F T4, VITAD, FETIBC, FERR #### [facility] [address] [place] [address] Dr. Cecilio Gale PROF 14(COMP METB)on 022 Albumin [Mass/Vol] 4.0 g/dL Normal 3.4-5.0 [facility] Comment on above: Performed By: #### F T4, VITAD, FETIBC, FERR #### [facility] [address] [place] [address] Dr. Cecilio Gale Albumin/Globulin [Mass ratio] 1.0 {ratio} Normal [facility] Comment on above: Performed By: #### F T4, VITAD, FETIBC, FERR #### [facility] [address] [place] [address] Dr. Cecilio Gale ALP [Catalytic activity/Vol] 160 U/L Critically high 46-116 [facility] Comment on above: Performed By: #### F T4, VITAD, FETIBC, FERR #### [facility] [address] [place] [address] Dr. Cecilio Gale ALT [Catalytic activity/Vol] 26 U/L Normal 14-59 [facility] Comment on above: Performed By: #### F T4, VITAD, FETIBC, FERR #### [facility] [address] [place] [address] Dr. Cecilio Gale Anion gap [Moles/Vol] 14.1 mmol/L Normal [facility] Comment on above: Performed By: #### F T4, VITAD, FETIBC, FERR #### [facility] [address] [place] [address] Dr. Cecilio Gale AST [Catalytic activity/Vol] 19 U/L Normal 15-37 [facility] Comment on above: Performed By: #### F T4, VITAD, FETIBC, FERR #### [facility] [address] [place] [address] Dr. Cecilio Gale Bilirubin [Mass/Vol] 0.5 mg/dL Normal 0.2-1.0 [facility] Comment on above: Performed By: #### F T4, VITAD, FETIBC, FERR #### [facility] [address] [place] [address] Dr. Cecilio Gale Calcium [Mass/Vol] 8.9 mg/dL Normal 8.5-10.1 [facility] Comment on above: Performed By: #### F T4, VITAD, FETIBC, FERR #### [facility] [address] [place] [address] Dr. Cecilio Gale Chloride [Moles/Vol] 93 mmol/L Critically low 98-107 [facility] Comment on above: Performed By: #### F T4, VITAD, FETIBC, FERR #### [facility] [address] [place] [address] Dr. Cecilio Gale CO2 [Moles/Vol] 25.9 mmol/L Normal 21.0-32.0 [facility] Comment on above: Performed By: #### F T4, VITAD, FETIBC, FERR #### [facility] [address] [place] [address] Dr. Cecilio Gale Creatinine [Mass/Vol] 0.68 mg/dL Normal 0.55-1.02 [facility] Comment on above: Performed By: #### F T4, VITAD, FETIBC, FERR #### [facility] [address] [place] [address] Dr. Cecilio Gale EGFR-AF BENINESE >60 Normal >=60 [facility] Comment on above: Performed By: #### F T4, VITAD, FETIBC, FERR #### [facility] [address] [place] [address] Dr. Cecilio Gale EGFR-NON AF BENINESE >60 Normal >=60 [facility] Comment on above: Performed By: #### F T4, VITAD, FETIBC, FERR #### [facility] [address] [place] [address] Dr. Cecilio Gale Globulin (S) [Mass/Vol] 3.9 g/dL Normal [facility] Comment on above: Performed By: #### F T4, VITAD, FETIBC, FERR #### [facility] [address] [place] [address] Dr. Cecilio Gale Glucose [Mass/Vol] 108 mg/dL Critically high 74-106 [facility] Comment on above: Performed By: #### F T4, VITAD, FETIBC, FERR #### [facility] [address] [place] [address] Dr. Cecilio Gale Potassium [Moles/Vol] 4.0 mmol/L Normal 3.5-5.1 [facility] Comment on above: Performed By: #### F T4, VITAD, FETIBC, FERR #### [facility] [address] [place] [address] Dr. Cecilio Gale Protein [Mass/Vol] 7.9 g/dL Normal 6.4-8.2 [facility] Comment on above: Performed By: #### F T4, VITAD, FETIBC, FERR #### [facility] [address] [place] [address] Dr. Cecilio Gale Sodium [Moles/Vol] 129 mmol/L Critically low 136-145 [facility] Comment on above: Performed By: #### F T4, VITAD, FETIBC, FERR #### [facility] [address] [place] [address] Dr. Cecilio Gale Urea nitrogen [Mass/Vol] 6.0 mg/dL Critically low 7.0-18.0 [facility] Comment on above: Performed By: #### F T4, VITAD, FETIBC, FERR #### [facility] [address] [place] [address] Dr. Cecilio Gale Urea nitrogen/Creatinine [Mass ratio] 8.8 mg/mg Normal [facility] Comment on above: Performed By: #### F T4, VITAD, FETIBC, FERR #### [facility] [address] [place] [address] Dr. Cecilio Gale TSHon 07-08-2022 TSH 0.963 uIU/mL Normal 0.358-3.740 [facility] Comment on above: Performed By: #### F T4, VITAD, FETIBC, FERR #### [facility] [address] [place] [address] Dr. Cecilio Gale UA RANDOMon 07-08-2022 Bilirubin Ql (U) Negative Normal NEGATIVE [facility] Comment on above: Performed By: #### F T4, VITAD, FETIBC, FERR #### [facility] [address] [place] [address] Dr. Cecilio Gale Clarity (U) CLEAR Normal CLEAR [facility] Comment on above: Performed By: #### F T4, VITAD, FETIBC, FERR #### [facility] [address] [place] [address] Dr. Cecilio Gale Color (U) LT. YELLOW Normal YELLOW [facility] Comment on above: Performed By: #### F T4, VITAD, FETIBC, FERR #### [facility] [address] [place] [address] Dr. Cecilio Gale Glucose Ql (U) Negative Normal NEGATIVE [facility] Comment on above: Performed By: #### F T4, VITAD, FETIBC, FERR #### [facility] [address] [place] [address] Dr. Cecilio Gale Hemoglobin Ql (U) TRACE-LYSED Abnormal NEGATIVE [facility] Comment on above: Performed By: #### F T4, VITAD, FETIBC, FERR #### [facility] [address] [place] [address] Dr. Cecilio Gale Ketones Ql (U) Negative Normal NEGATIVE [facility] Comment on above: Performed By: #### F T4, VITAD, FETIBC, FERR #### [facility] [address] [place] [address] Dr. Cecilio Gale LEUKOCYTES Negative Normal NEGATIVE [facility] Comment on above: Performed By: #### F T4, VITAD, FETIBC, FERR #### [facility] [address] [place] [address] Dr. Cecilio Gale Nitrite Ql (U) Negative Normal NEGATIVE [facility] Comment on above: Performed By: #### F T4, VITAD, FETIBC, FERR #### [facility] [address] [place] [address] Dr. Cecilio Gale pH (U) 7.5 [pH] Normal 5-9 [facility] Comment on above: Performed By: #### F T4, VITAD, FETIBC, FERR #### [facility] [address] [place] [address] Dr. Cecilio Gale SPEC GRAVITY <=1.005 Abnormal 1.005-<=1.0 25 [facility] Comment on above: Performed By: #### F T4, VITAD, FETIBC, FERR #### [facility] [address] [place] [address] Dr. Cecilio Gale UA PROTEIN Negative Normal NEGATIVE/ TRACE [facility] Comment on above: Performed By: #### F T4, VITAD, FETIBC, FERR #### [facility] [address] [place] [address] Dr. Cecilio Gale Urobilinogen Qn (U) 0.2 {Anita'U}/dL Normal 0.2 - 1. 0 [facility] Comment on above: Performed By: #### F T4, ROSCOE, ELTON, FERR #### [facility] [address] [address] [address] Cecilio Gale Vital Signs Date Time Vital Sign Value Performing Clinician Facility 07-26-2024 13:38-0400 Body height 162.56 cm [facility] 07-26-2024 13:38-0400 Body mass index (BMI) [Ratio] 34.1 kg/m2 [facility] 07-26-2024 13:38-0400 Body temperature 97.3 [degF] [facility] 07-26-2024 13:38-0400 Body weight 90.26 kg [facility] 07-26-2024 13:38-0400 Diastolic blood pressure 82 mm[Hg] [facility] 07-26-2024 13:38-0400 Heart rate 76 /min [facility] 07-26-2024 13:38-0400 Respiratory rate 18 /min [facility] 07-26-2024 13:38-0400 SaO2% (BldA) [Mass fraction] 98 % [facility] 07-26-2024 13:38-0400 Systolic blood pressure 124 mm[Hg] [facility] 06-07-2024 13:13-0400 Body height 162.56 cm [facility] 06-07-2024 13:13-0400 Body mass index (BMI) [Ratio] 35 kg/m2 [facility] 06-07-2024 13:13-0400 Body weight 92.53 kg [facility] 06-07-2024 13:13-0400 Diastolic blood pressure 82 mm[Hg] [facility] 06-07-2024 13:13-0400 Heart rate 94 /min [facility] 06-07-2024 13:13-0400 SaO2% (BldA) [Mass fraction] 98 % [facility] 06-07-2024 13:13-0400 Systolic blood pressure 127 mm[Hg] [facility] 05-02-2024 11:10-0400 Body height 165.1 cm [facility] 05-02-2024 11:10-0400 Body mass index (BMI) [Ratio] 33.8 kg/m2 [facility] 05-02-2024 11:10-0400 Body weight 92.22 kg [facility] 05-02-2024 11:10-0400 Diastolic blood pressure 80 mm[Hg] [facility] 05-02-2024 11:10-0400 Respiratory rate 18 /min [facility] 05-02-2024 11:10-0400 Systolic blood pressure 112 mm[Hg] [facility] 10-27-2023 11:10-0500 Body height 165.1 cm Scotty Ruiz Other [facility] [employer] Other 10-27-2023 11:10-0500 Body mass index (BMI) [Ratio] 36.11 kg/m2 Scotty Ruiz Other [employer] [facility] [employer] Other 10-27-2023 11:10-0500 Body temperature 98.1 [degF] Scotty Ruiz Other [employer] Other 10-27-2023 11:10-0500 Body weight 98.43 kg Scotty Ruiz Other [employer] Other 10-27-2023 11:10-0500 Diastolic blood pressure 78 mm[Hg] Scotty Ruiz Other [employer] Other 10-27-2023 11:10-0500 Respiratory rate 18 /min Scotty Ruiz Other [employer] Other 10-27-2023 11:10-0500 SaO2% (BldA) [Mass fraction] 97 % Scotty Ruiz Other [employer] Other 10-27-2023 11:10-0500 Systolic blood pressure 120 mm[Hg] Scotty Ruiz Other [employer] Other 07-28-2023 09:50-0400 Body height 165.1 cm Scotty Ruiz Other [employer] Other 07-28-2023 09:50-0400 Body mass index (BMI) [Ratio] 39.1 kg/m2 Scotty Ruiz Other [employer] Other 07-28-2023 09:50-0400 Body weight 106.6 kg Scotty Ruiz Other [employer] Other 07-28-2023 09:50-0400 Diastolic blood pressure 78 mm[Hg] Scotty Ruiz Other [employer] Other 07-28-2023 09:50-0400 Respiratory rate 18 /min Scotty Ruiz Other [employer] Other 07-28-2023 09:50-0400 SaO2% (BldA) [Mass fraction] 98 % Scotty Ruiz Other [employer] Other 07-28-2023 09:50-0400 Systolic blood pressure 124 mm[Hg] Scotty Ruiz Other [employer] Other 06-02-2023 13:00-0400 Body height 165.1 cm Rajendra Angulo Other [employer] Other 06-02-2023 13:00-0400 Body mass index (BMI) [Ratio] 42.43 kg/m2 Rajednra Angulo Other [employer] Other 06-02-2023 13:00-0400 Body weight 115.67 kg Rajendra Salinasno Other [employer] Other 06-02-2023 13:00-0400 Diastolic blood pressure 78 mm[Hg] Roberthannah Landadano Other [employer] Other 06-02-2023 13:00-0400 SaO2% (BldA) [Mass fraction] 97 % Roberthannah Salinasno Other [employer] Other 06-02-2023 13:00-0400 Systolic blood pressure 119 mm[Hg] Roberthannah Landadano Other [employer] Other 01-21-2023 11:50-0400 Body height 165.1 cm Scotty Ruiz Other [employer] Other 01-21-2023 11:50-0400 Body mass index (BMI) [Ratio] 45.92 kg/m2 Scotty Ruiz Other [employer] Other 01-21-2023 11:50-0400 Body temperature 97.7 [degF] Scotty Ruiz Other [employer] Other 01-21-2023 11:50-0400 Body weight 125.19 kg Scotty Ruiz Other [employer] Other 01-21-2023 11:50-0400 Diastolic blood pressure 86 mm[Hg] Scotty Ruiz Other [employer] Other 01-21-2023 11:50-0400 Respiratory rate 18 /min Scotty Ruiz Other [employer] Other 01-21-2023 11:50-0400 SaO2% (BldA) [Mass fraction] 97 % Scotty Ruiz Other [employer] [facility] Other 01-21-2023 11:50-0400 Systolic blood pressure 128 mm[Hg] Scotty Brendanmono Other [employer] Other 08-04-2022 15:21-0400 Blood Pressure Location Kerry NILL [facility] 08-04-2022 15:21-0400 Diastolic blood pressure 80 mm[Hg] Kerry NILL [facility] 08-04-2022 15:21-0400 Heart rate 72 /min Kerry NILL [facility] 08-04-2022 15:21-0400 Respiratory rate 16 /min Kerry NILL [facility] 08-04-2022 15:21-0400 Systolic blood pressure 118 mm[Hg] Kerry NILL [facility] 07-29-2022 11:12-0400 Body height 165.1 cm Ricci Garcia MD Work Phone: [facility] 07-29-2022 11:12-0400 Body temperature 97.11 [degF] Ricci Garcia MD Work Phone: [facility] 07-29-2022 11:12-0400 Body weight 122.97 kg Ricci Garcia MD Work Phone: [facility] 07-29-2022 11:12-0400 Diastolic blood pressure 89 mm[Hg] Ricci Garcia MD Work Phone: [facility] 07-29-2022 11:12-0400 Heart rate 83 /min Ricci Garcia MD Work Phone: [facility] 07-29-2022 11:12-0400 Respiratory rate 16 /min Ricci Garcia MD Work Phone: [facility] 07-29-2022 11:12-0400 SaO2% (BldA) [Mass fraction] 98 % Ricci Garcia MD Work Phone: [facility] 07-29-2022 11:12-0400 Systolic blood pressure 152 mm[Hg] Ricci Garcia MD Work Phone: [facility] 07-14-2022 14:20-0400 Body height 165.1 cm Scotty Ruiz Other [employer] Other 07-14-2022 14:20-0400 Body mass index (BMI) [Ratio] 45.26 kg/m2 Scotty Ruiz Other [employer] Other 07-14-2022 14:20-0400 Body temperature 97.6 [degF] Scotty Ruiz Other [employer] Other 07-14-2022 14:20-0400 Body weight 123.38 kg Scotty Ruiz Other [employer] Other 07-14-2022 14:20-0400 Diastolic blood pressure 82 mm[Hg] Scotty Ruiz Other [employer] Other 07-14-2022 14:20-0400 SaO2% (BldA) [Mass fraction] 97 % Scotty Ruiz Other [employer] Other 07-14-2022 14:20-0400 Systolic blood pressure 132 mm[Hg] Scotty Ruiz Other [employer] Other 06-03-2022 14:00-0400 Body height 165.1 cm Rajendra Angulo Other [employer] Other 06-03-2022 14:00-0400 Body mass index (BMI) [Ratio] 45.26 kg/m2 Rajendra Salinasno Other [employer] Other 06-03-2022 14:00-0400 Body temperature 97.3 [degF] Rajendra Salinasno Other [employer] Other 06-03-2022 14:00-0400 Body weight 123.38 kg Rajendra Salinasno Other [employer] Other 06-03-2022 14:00-0400 Diastolic blood pressure 75 mm[Hg] Rajendra Salinasno Other [employer] Other 06-03-2022 14:00-0400 SaO2% (BldA) [Mass fraction] 10 % Rajendra Salinasno Other [employer] Other 06-03-2022 14:00-0400 Systolic blood pressure 113 mm[Hg] Rajendra Salinasno Other [employer] Other Encounters Encounter Date Encounter Type Care Provider Facility Start: 07-26-2024 End: 07-26-2024 ambulatory [facility] Work Phone: Start: 07-26-2024 End: 07-26-2024 Patient encounter procedure [facility] Phys[facility] Work Phone: Start: 07-14-2024 Non-patient / Non-visit [facility] Work Phone: Start: 06-29-2024 Non-patient / Non-visit Critical Access Hospital Physician [facility] Work Phone: Start: 06-19-2024 Non-patient / Non-visit [facility] Work Phone: Start: 06-07-2024 End: 06-07-[address] [facility] Work Phone: Start: 06-07-2024 End: 06-07-2024 Patient encounter procedure Critical Access Hospital Physician [facility] Work Phone: Start: 05-02-2024 End: 05-02-[address] [facility] Work Phone: Start: 05-02-2024 End: 05-02-2024 Patient encounter procedure Critical Access Hospital Physician [facility] [place] Work Phone: Start: 04-26-2024 Non-patient / Non-visit [facility] Physician [facility] Work Phone: Start: 04-20-2024 End: 04-20-2024 ambulatory FERMIN ZAMORAFlip Not Available Start: 12-13-2023 End: 12-13-2023 Phys/qhp telephone evaluation 5-10 min Trevor Wheeler DO Work Phone: [facility] Comment on above: Encounter to discuss test results Start: 11-23-2023 End: 11-23-2023 ambulatory TREVOR WHEELER Not Available Start: 10-27-2023 End: 10-27-2023 ambulatory Scotty Ruiz Other [employer] Other Start: 10-27-2023 Office outpatient vi sit 25 minutes [facility] Start: 08-04-2023 End: 08-04-2023 ambulatory Scotty Ruiz Other [employer] Other Start: 08-04-2023 Telephone encounter Scotty Ruiz [facility] [place] Start: 07-28-2023 End: 07-28-2023 ambulatory Scotty Ruiz Other [employer] Other Start: 07-28-2023 Office outpatient vi sit 25 minutes Scotty Ruiz [facility] [place] Start: 07-22-2023 End: 07-22-2023 ambulatory Scotty Ruiz Other [employer] Other Start: 07-22-2023 Telephone encounter Scotty Ruiz [facility] [place] Start: 06-02-2023 Office outpatient vi sit 10 minutes Rajendra Angulo [facility] Start: 06-02-2023 End: 06-02-2023 ambulatory DO Scotty Ruiz Work Phone: [facility] [employer] Other Start: 06-02-2023 End: 06-02-2023 Patient encounter procedure DO Scotty Ruiz Work Phone: [facility] Work Phone: Start: 02-09-2023 End: 02-09-2023 ambulatory Scotty Ruiz Other [facility] [employer] Other Start: 02-09-2023 Telephone encounter Scotty Ruiz [facility] [place] Start: 01-21-2023 End: 01-21-2023 ambulatory Scotty Ruiz Other [employer] Other Start: 01-21-2023 Encounter for other preprocedural examination Scotty Ruiz [facility] [place] Start: 01-21-2023 Office outpatient vi sit 25 minutes Scotty Ruiz [facility] [place] Start: 01-11-2023 End: 01-12-[address] SCOTTY RUIZ Facility:[facility] Start: 11-30-2022 End: 11-30-2022 ambulatory Scotty Ruiz Other [employer] Other Start: 11-30-2022 Telephone encounter Scotty Ruiz [facility] [place] Start: 10-08-2022 End: 10-09-[address] DOCTOR RANDALL Facility:[facility] Start: 09-22-2022 End: 09-23-2022 ambulatory Kerry JONES Facility: [place] Start: 09-22-2022 End: 09-22-2022 Patient encounter procedure Kerry JONES General [facility] [place] Start: 09-17-2022 ambulatory Scotty Ruiz Faci lity:[facility] Start: 09-09-2022 End: 09-10-2022 ambulatory Kerry JONSE Facility::[id number] Start: 2022 [facility] Start: 2022 End: 09-08-[address] KERRY JONES . [employer] Other Start: 08-21-2022 End: 08-22-2022 ambulatory VINCENT AGUILAR Facility: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); Disorder of iron metabolism; Family history of hemochromatosis Start: 08-04-2022 End: 08-05-2022 ambulatory Scotty Ruiz Facility:[facility] Start: 08-04-2022 End: 08-04-2022 Patient encounter procedure Kerry JONES General Surgery [facility] Start: 07-29-2022 End: 07-29-2022 Visit (SP) Office Ricci Garcia MD Work Phone: Hematology/Oncology Comment on above: Family history of he mochromatosis (Primary Dx); Disorder of iron metabolism; Hemochromatosis, unspecified hemochromatosis type Start: 07-28-2022 End: 07-28-2022 ambulatory Mahendra Romo Facility:[facility] Start: 07-28-2022 End: 07-28-2022 Patient encounter procedure DO Scotty Ruiz Work Phone: [facility] Start: 07-21-2022 Telephone encounter Scotty Ruiz [facility] Start: 07-21-2022 End: 07-22-[address] SCOTTY RUIZ [facility] Other Start: 07-14-2022 End: 07-14-2022 ambulatory Scotty Ruiz [facility] Other Start: 07-14-2022 Office outpatient vi sit 25 minutes Scotty Ruiz [facility] Start: 07-08-2022 End: 07-09-[address] SCOTTY RUIZ Facility: Start: 07-07-2022 Telephone encounter Scotty Ruiz [facility] Start: 07-07-2022 End: 07-09-2022 ambulatory DO INTERIANO [facility] Other Start: 06-03-2022 End: 06-03-2022 ambulatory Rajendra Angulo Other [facility] Other Start: 06-03-2022 Office outpatient vi sit 10 minutes Rajendra Angulo [facility] Start: 06-03-2022 End: 06-03-2022 Patient encounter procedure DO Scotty Ruiz Work Phone: [facility] Start: 09-01-2021 Telephone encounter Scotty Ruiz [facility] Procedures Date Procedure Procedure Detail Performing [...] Screening for malign ant neoplasm of colon [facility] Start: 08-21-2025 DIABETES SCREEN DIABETES SCREEN [facility] Start: 07-29-2025 DIABETES SCREEN DIABETES SCREEN [facility] Start: 11-28-2024 End: 11-28-2024 Patient encounter procedure 11/28/2024 1:00 PM EST Office [facility] [address] [place] [address] Trevor Wheeler, DO [address] Jose [place], [facility] Start: 07-29-2022 End: 09-28-2022 HFE gene targeted mutation analysis in Blood or Tissue by Molecular genetics method [facility] Work Phone: Comment on above: Expected: 07/29/2022 , Expires: 09/28/2022 Start: 07-09-2022 Influenza vaccination INFLUENZA (#1) [facility] Start: 04-14-2022 COVID-19 VACCINE (5 - Booster for Pfizer series) COVID-19 VACCINE (5 - Booster for Pfizer series) [facility] Start: 11-08-2021 DEPRESSION ASSESSMENT DEPRESSION ASS ESSMENT [facility] Start: 2011 COLOGUARD (FIT-DNA) COLOGUARD (FIT-D NA) [facility] Start: 2011 Colonoscopy COLONOSCOPY [facility] Start: 2011 COLORECTAL CANCER SCREENING COLORECTAL CANCER SCREENING [facility] Start: [address] COLONOGRAPHY [facility] Start: 2011 FECAL OCCULT BLOOD FECAL OCCULT BLOO D [facility] Start: 2011 LIPID SCREEN LIPID SCREEN [facility] Start: 2011 SIGMOIDOSCOPY SIGMOIDOSCOPY [facility] Start: 2006 Mammography MAMMOGRAM [facility] Start: 2006 Screening for malign ant neoplasm of breast Mammogram [facility] Start: 1996 HPV TESTING HPV TESTING [facility] Start: 1996 Screening for malign ant neoplasm of cervix [facility] Start: 1987 PAP TESTING PAP TESTING [facility] Start: 1987 Screening for malign ant neoplasm of cervix Pap Smear [facility] Start: 1985 Urine microalbumin profile DTAP,TDAP,TD (1 - Tdap) [facility] Start: 1984 HEPATITIS C SCREENING HEPATITIS C SC MARTIN [facility] Start: 1984 HIV SCREENING HIV SCREENING [facility] Start: 1978 Adult depression screening assessment DEPRESSION SCREENING [facility] Start: 1966 HEPATITIS B (1 of 3 - 3-dose series) HEPATITIS B (1 of 3 - 3-dose series) [facility] Start: 1966 Screening for malign ant neoplasm of colon [facility] Bacteria identified in Urine by Culture [facility] Calcium.ionized [Mass/volume] in Serum or Plasma by Ion-selective membrane electrode (ISE) [facility] End: 08-12-2023 CBC W Auto Differential panel - Blood CBC + DIFF Lab Routine 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) Every 3 months for 4 Occurrences starting 08/12/2022 until 08/12/2023 [facility] Work Phone: Comment on above: Every 3 months for 4 Occurrences starting 08/12/2022 until 08/12/2023 End: 08-12-2023 Comprehensive metabolic 2000 panel - Serum or Plasma COMP METABOLIC PANEL Lab Routine 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) Every 3 months for 4 Occurrences starting 08/12/2022 until 08/12/2023 [facility] Work Phone: Comment on above: Every 3 months for 4 Occurrences starting 08/12/2022 until 08/12/2023 Comprehensive metabo lic 2000 panel - Serum or Plasma [facility] End: 08-12-2023 Ferritin [Mass/volume] in Serum or Plasma FERRITIN BLD Lab Routine 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) Every 3 months for 4 Occurrences starting 08/12/2022 until 08/12/2023 [facility] Work Phone: Comment on above: Every 3 months for 4 Occurrences starting 08/12/2022 until 08/12/2023 End: 08-12-2023 Iron and Iron binding capacity panel - Serum or Plasma IRON + TIBC Lab Routine 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) Every 3 months for 4 Occurrences starting 08/12/2022 until 08/12/2023 [facility] Work Phone: Comment on above: Every 3 months for 4 Occurrences starting 08/12/2022 until 08/12/2023 [facility] Immunizations Immunization Date Immunization Notes Care Provider Fa cility 08-18-2023 COVID-19 Vaccine Moderna - Documentation Purposes Only Scotty Ruiz Other [facility] 08-18-2023 Influenza, injectabl e, Madin [place] Canine Kidney, preservative free, quadrivalent [facility] 08-18-2023 Flu Shot - Documentation Purposes Only Scotty Ruiz Other [facility] 10-15-2022 COVID-19 mRNA Bivale nt Booster (Pfizer) [facility] 10-15-2022 influenza, injectabl e, quadrivalent, preservative free [facility] 10-15-2022 influenza, seasonal, injectable Scotty Ruiz Other [facility] 02-17-2022 COVID-19 Vaccine Moderna - Documentation Purposes Only Rajendra Angulo Other [facility] 10-11-2021 COVID-19 Vaccine Pfizer - Documentation Purposes Only Rajendra Angulo Other [facility] 08-05-2021 influenza, seasonal, injectable Scotty Ruiz Other [facility] 08-05-2021 influenza, injectabl e, quadrivalent, preservative free Ricci Garcia MD Work Phone: [facility] 02-07-2021 COVID-19 Vaccine Pfizer - Documentation Purposes Only Scotty Ruiz Other [facility] Comment on above: Reason for Medicatio n: Prophylaxis 01-17-2021 COVID-19 Vaccine Pfizer - Documentation Purposes Only Scotty Ruiz Other [facility] Comment on above: Reason for Medicatio n: Prophylaxis 10-04-2020 zoster vaccine recombinant Scotty Ruiz Other [facility] 08-05-2020 zoster vaccine recombinant Scotty Ruiz Other [facility] 08-05-2020 influenza, seasonal, injectable Scotty Ruiz Other [facility] 08-05-2020 influenza, injectabl e, quadrivalent, preservative free Ricci Garcia MD Work Phone: [facility] 10-17-2019 influenza, seasonal, injectable Scotty Ruiz Other [facility] 10-17-2019 influenza, injectabl e, quadrivalent, contains preservative Ricci Garcia MD Work Phone: [facility] 07-23-2018 influenza, injectabl e, quadrivalent, preservative free Ricci Garcia MD Work Phone: [facility] 07-23-2018 influenza, seasonal, injectable Scotty Ruiz Other [facility] NEGATED: Highlighted row has not occurred!08-04-2022 influenza virus vaccine, unspecified formulation Kerry JONES [facility] [place] Payers Date Payer Category Payer Self-pay [id number] 2019 Medicare [id number] 1966 Unknown [id number] 2.16.8 [id number] 1966 Unknown [id number] 2.16.8 40.1.091871.3.579.2.727 1966 Unknown [id number] 2.16.8 40.1.121631.3.579.2.727 1966 Unknown [id number] 2.16.8 40.1.105335.3.579.2.727 1966 Unknown [id number] 2.16.84 0.1.230543.3.579.2.593 1966 Unknown [id number] 2.16.84 0.1.401539.3.579.2.593 1966 Unknown [id number] 2.16.84 0.1.996426.3.579.2.593 1966 Unknown [id number] 2.16.84 0.1.085023.3.579.2.593 1966 Unknown [id number] 2.16.84 0.1.319782.3.579.2.593 1966 Unknown [id number] 2.16.84 0.1.108407.3.579.2.593 1966 Unknown [id number] 2.16.84 0.1.121823.3.579.2.593 1966 Unknown [id number] 2.16.84 0.1.322293.3.579.2.1259 1966 Unknown [id number] 2.16.84 0.1.195674.3.579.2.1259 1958 Medicare [id number] 2.16. 840.1.172763.19 Unknown O [id number] Unknown Regular Insurance [id number] Unknown [employer] [id number] Unknown [id number] 2.16.8 40.1.512752.3.579.2.531 Unknown [id number] 2.16.8 40.1.003482.3.579.2.531 Unknown [id number] 2.16.8 40.1.996190.3.579.2.531 Unknown HCAP/HFA/FAP Active [id number] Social History Date Type Detail Facility Unknown if ever smoked [facility] Other Start: 11-02-2023 Sex Assigned At [facility] Other Start: 1965 Sex Assigned At Female [facility] Start: 07-23-2022 End: 05-02-2024 Tobacco smoking status NHIS Never smoked tobacco [facility] History of tobacco use Passive smoker [facility] Start: 07-23-2022 Tobacco use and exposure Smokeless tobacco non-user [facility] Start: 07-29-2022 Alcohol intake Current non-drinker of alcohol (finding) [facility] Start: 1965 Sex Assigned At Not on file [facility] Start: 07-19-2022 End: 08-21-2022 Exposure to SARS-CoV-2 (event) Not sure [facility] Tobacco smoking status Never [facility] Start: 11-23-2023 Alcohol intake Lifetime non-drinker (finding) [facility] Start: 11-02-2023 History of Social function [facility] Start: 11-02-2023 Alcohol Comment caffeine: 2-3 cups per day coffee, soda [facility] Start: 11-16-2023 Gender identity Identifies as female gender (finding) [facility] Start: 11-16-2023 Sexual orientation Heterosexual (finding) [facility] Functional Status Date Assessment Result Facility 08-04-2022 Functional Status N/A [facility] Clinical Notes 09-01-2021 to 05-02-2024 Note Date & Type Note Facility 05-02-2024 Evaluation note Authored May 02, 2024 12:5 3pm The above note written by __ _Jesusita Elliott____ acting as human recorder, note dictated by Dr. Martino .I performed the above HPI, ROS, and Examination. I formulated and dictated the treatment plan and was present for entire encounter. Scotty Ruiz D.O. [facility] Work Phone: 1(502) 123-885402-05-2024 History of Present illness Narrative* Trevor LiamDO miguel - 12/13/2023 8:00 AM EST Reason for Appointment: Patient ID: Layton Newton is a 58 y.o. female who presents for Results Patient presents today via telephone call for a telehealth appointment. Patients Phone #: [phone] (mobile) Current Medications: has a current medication [...] of: Trevor Wheeler DO documented in [facility]Do[facility] [id number] Evaluation note* Encounter Date Diagnosis Assessment Notes [...] Hyperglycemia (ICD-1 0 - R73.9) [facility], [facility] ([facility] (ICD-10 - Z79.899) Oct, [...] - E87.1) Her sodium level was 131. [facility] Other 09-20-2023 Evaluation note* Encounter Date Diagnosis [...] HgA1C is normal at 5.4. Jul, Other jail (current) drug therapy (ICD-10 - Z79.899) Jul, [...] this level has not gone down further. [facility] Other 07-26-2023 Evaluation note* Encounter Date Diagnosis Assessment Notes Treatment Notes Treatment Clinical Notes May, LORENA (obstructive sleep apnea) (ICD-10 - G47.33) [facility] Other 03-16-2023 Evaluation note* Encounter Date Diagnosis [...] was 121. Ferritin was 132.0. Jan, [facility] jail (current) drug therapy (ICD-10 - Z79.899) Jan, [...] winded. She is seeing Dr. Collins in [place] in an attempt to have bariatric weight [...] when she had weight loss surgery done. [facility] Other 11-02-2022 NoteOPERATIVE NOTE OPERATION DATE: 09/09/2022 [...] in good condition. CC: Scotty Ruiz D.O.[id number] NoteHNO ID: [id number] Author: Olesya Rodriguez RN Service: ? Author Type: Registered Nurse Type: Progress Notes Filed: 08/21/2022 4:39 PM Note Text: Pt was checked in for appointment. HGB of 14.3 qualified her for a phlebotomy. However, pt left the building after getting her blood work drawn. PSS called and LVM for pt to reschedule.[facility] 08-21-2022 History of Present illness Narrative* Olesya Rodriguez RN - 08/21/2022 3:24 PM EDT Pt was checked in for appointment. HGB of 14.3 qualified her for a phlebotomy. However, pt left thebuilding after getting her blood work drawn. PSS called and LVM for pt to reschedule. documented in this [facility]10-05-2022 Instructions* Patient Instructions* Ricci Garcia MD - 08/12/2022 8:43 PM EDT Arrange for phlebotomy 1 unit for Hgb > 13 next week Labs in 3 months RTC 1 week after labs and schedule for possible phlebotomy after clinician. documented in [facility]Ohio[facility]2022 NoteHNO ID: [id number] Author: Ricci Garcia MD Service: ? Author Type: Physician Type: Progress Notes Filed: 08/12/2022 8:45 PM Note Text: NAME: Mikey Newton NO.: [id number] DATE OF SERVICE: August 12, 2022 Some [...] 07/29/2022 0.4 AST (U/L (more content not included)...[facility]10-05-2022 History of Present illness Narrative* Ricci Garcia MD - 08/12/2022 5:17 PM EDT Images from the original note were not included. NAME: Mikey Newton CLINIC NO.: [id number] DATE OF SERVICE: August 12, 2022 Some [...] CPE Hematology and Oncology Services Provided at: [place], [place] CC: Scotty Ruiz [address] [place] [address] Scotty Ruiz DO [address] [place] [address] documented in this encounterOhio[facility]09-27-2022 NoteChief Complaint consultation for screening colonoscopy [facility] Staff 56 year old female presents on [...] 50,000 intl units (1.25 mg) oral capsule, 09251 International_Unit= 1 cap(s), Oral, qWeek Allergies Depakote [...] SARS-CoV-2 (COVID-19) mRNA BNT-162b2 vax 01/17/2021 Given [facility]axisK[facility] SpringfieldComment on above:Result Comment: Electronically Signed By: MOMO CHAND, Kerry Barfield\Date and Time Signed: 08/04/22 15:39 [id number] Note HNO ID: [id number] Author: Ricci Garcia MD Service: ? Author Type: Physician Type: Progress Notes Filed: 07/30/2022 12:33 PM Note Text: NAME: Mikey Newton NO.: [id number] DATE OF SERVICE: July 29, 2022 Referring [...] FAMILY HISTORY Problem Relation (more content not included)...[facility] 07-29-2022 Instructions* Patient Instructions* Ricci Garcia MD - 07/29/2022 11:49 AM EDT HFE and iron labs today Call results in 2 weeks. documented in this encounter[facility] History of Present illness Narrative* Ricci Garcia MD - 07/29/2022 11:00 AM EDT Images from the original note were not included. NAME: Mikey Newton [facility] NO.: [id number] DATE OF SERVICE: July 29, 2022 Referring Provider: Scotty Ruiz Consultation requested by Dr. Ruiz for an opinion regarding Ms. Mikey Newton, and my final recommendations will be communicated back to the requesting physician by way of shared medical record or letter via US mail. Additional Clinicians involved in [place] Newton's care: DIAGNOSIS: Elevated iron ASSESSMENT: 56 [...] which included preparing to see the patient, [id number] patient care, completing clinical documentation, obtaining and/or reviewing separately obtained history, performing a medically appropriate examination, counseling and educating the pat ient/family/caregiver, ordering medications, tests, or procedures, and independently interpreting results (not separately reported). Ricci Garcia MD, CPE Hematology and Oncology Services Provided at: [place], [place] CC: Scotty Ruiz [address] [place] [id number] Scotty Ruiz, DO [address] [place] [address] documented in this encounterOhio[facility]-06-[facility]22 Evaluation note* Encounter Date Diagnosis [...] with her Vitamin D supplement. 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 A referral is provided. [facility] Other 07-27-2022 Evaluation note* Encounter Date Diagnosis Assessment Notes Treatment Notes Treatment Clinical Notes May, LORENA (obstructive sleep apnea) (ICD-10 - G47.33) [facility] Other 10-25-2021 Evaluation note* Encounter Date Diagnosis Assessment Notes Treatment Notes Treatment Clinical Notes Aug, Hypothyroidism (ICD-10 - E03.9) [facility] Other Evaluation + Plan note No data available for this section General Surgery [place] Evaluation noteNo InformationNort [facility] Other evaluation noteNo assessment information available [facility] Work Phone: Evaluation note* Diagnosis Family history of hemochromatosis- Primary Family history of other endocrine and metabolic diseases Disorder of iron metabolism Other disorders of iron metabolism Hemochromatosis, unspecified hemochromatosis type documented in this encounter [facility] Diagnosis 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 Other disorders of iron metabolism Family history of hemochromatosis Family history of other endocrine and metabolic diseases [facility] Hereditary hemochromatosis (HCC)- Primary Hereditary hemochromatosis [facility] Diagnosis Encounter to discuss test results Other specified counseling documented in this encounter [facility]* Diagnosis Onset Date Resolution Status Epilepsy acute Hemochromatosis acute Hyperglycemia acute Hyperlipidemia acute Hypocalcemia acute Hyponatremia acute Hypothyroidism acute Intentional weight loss acut e Vitamin D deficiency acute [facility] Work Phone: [facility] general Narrative - Reported* Type Description Date Medical History Epilepsy-1977; Follow's with Dr. Natalio Weaver Medical History History of [place] Medical History Hemochromotosis Medical History jabari Montes's patient's pap's and pelvics Medical History Patient states that she get's her Medical Equipment from [employer] Medical History LORENA (obstructive sleep apnea) Medical History Refuses Colonoscopy 02-08-17 Surgical History Brain Surgery 1988 Surgical History Tubal Ligation 1991 Surgical History Hysterectomy 2003 Hospitalization History Brain Surgery 1988 Hospitalization History Tubal Ligation 1991 Hospitalization History Hysterectomy 2003 [facility] Other [facility] general Narrative - Reported* Type Description Date Medical History Epilepsy-1977; Follow's with Dr. Natalio Weaver Medical History History of [place] Medical History Hemochromotosis Medical History Dr. Mckeon, jabari's patient's pap's and pelvics Medical History Patient states that she get's her Medical Equipment from [employer] Medical History LORENA (obstructive sleep apnea) Medical History Refuses Colonoscopy 02-08-17 Medical History gallstones Surgical History Brain Surgery 1988 Surgical History Tubal Ligation 1991 Surgical History Hysterectomy 2003 Surgical History Colonoscopy - Dr. Jones / alejandra cavazos polyp 09/25/22 Hospitalization History Brain Surgery 1988 Hospitalization History Tubal Ligation 1991 Hospitalization History Hysterectomy 2003 [facility] Other history general Narrative - Reported* Type Description Date Medical History Epilepsy; Follow's with Dr. Natalio Weaver Medical History History of [place] Medical History Hemochromotosis Medical History jabari Montes's patient's pap's and pelvics Medical History Patient states that she get's her Medical Equipment from [employer] Medical History LORENA (obstructive sleep apnea) Medical History Refuses Colonoscopy 17 Medical History gallstones Surgical History Brain Surgery 1988 Surgical History Tubal Ligation 1991 Surgical History Hysterectomy 2003 Surgical History Colonoscopy - Dr. Holly presley / sigmoid polyp / needs repeat in 202409/09/22 Surgical History bariatric surgery 06/22/23 Hospitalization History Brain Surgery 1988 Hospitalization History Tubal Ligation 1991 Hospitalization History Hysterectomy 2003 [facility] Other Hospital Discharge instructions No data available for this section General Surgery [place] [employer] Progress note No data available for this section General Surgery [place] [employer] Reason for visit Narrativereview labs/medical [facility] Other Chief Complaint and Reason for Visit [...] Vitamin D deficiency LORENA (obstructive sleep apnea) Chief Complaint review labs LORENA/ANNUAL ER f/u gallbladder Reason for Visit Epilepsy Hemochromatosis Hyperglycemia Hyperlipidemia Hypocalcemia Hyponatremia Hypothyroidism Intentional weight loss Vitamin D deficiency LORENA (obstructive sleep apnea) Biliary colic Cholelithiasis Renal calculi Advance Directives Advance Directive Response Recorded Date/ Time Advance Directives No January 26 1:08pm Advance Directive Response Recorded Date/ Time Advance Directives No January 26 12:08pm Reason for Referral Reason appt pt needs scre ening colonoscopy Diagnosis 1 Encounter for screen ing colonoscopy (Z12.11) Referral Organization [facility] [employer] [place] Referring Provider First Name Scotty Referring Provider Last Name Sara Referring Provider Specialty Family Andressa vidal Referred Organization [facility] Referred Provider Kerry Jones Referred Address ,[place], [place],[address] Referred Provider Specialty Surgery Referral Priority Routine General Notes Luh Giraldo 07/14/2022 02:16:50 PM > referral faxed with visit note and insurance card. pt understands she will be contacted to schedule this appt. Reason appt pt is marcela breaux to see whomever can see her first pt needs consult to discuss official dx of hemochromatosis Diagnosis 1 Hemochromatosis (E83 .119) Referral Organization [facility] [place] Referring Provider First Name Scotty Referring Provider Last Name Sara Referring Provider Specialty Family Prac marcy Ref[facility] Referred Provider Ricci Garcia Referred Address [address] [place], [place],[address] Referred Provider Specialty Hematology/O ncology Referral Priority [...] content) Team Status: Active Member Role Status Tawanda Ruiz DO Primary Care Provider Active Team Status: Inactive Member Role Status Tawanda Ruiz DO Primary Care Provide r, Attending Provider Active Start: May 02, 2024 End: May 02, 2024 Team Status: Inactive Member Role Status Tawanda Ruiz DO Primary Care Provider Active S tart: June 07, 2024 End: June 07, 2024 Rajendra Angulo MD Attending Provider Active Start: June 07, 2024 End: June 07, 2024 Team Status: Active Member Role Status Tawanda Ruiz DO Primary Care Provide r, Attending Provider Active Start: June 19, 2024 Team Status: Active Member Role Status Tawanda Ruiz DO Primary Care Provider Active S tart: June 29, 2024 Estefani Mooney PA-C Attending Provider Active Start: June 29, 2024 Team Status: Active Member Role Status Tawanda Ruiz DO Primary Care Provider Active S tart: June 29, 2024 Drew Hebert DO Attending Provider Active Sta rt: June 29, 2024 Team Status: Active Member Role Status Tawanda Ruiz DO Primary Care Provide r, Attending Provider Active Start: July 14, 2024 Team Status: Inactive Member Role Status Tawanda Ruiz DO Primary Care Provide r, Attending Provider Active Start: July 26, 2024 End: July 26, 2024 Team Status: Active Member Role Status Tawanda Ruiz DO Primary Care Provider Active Team Status: Active Member Role Status Dates Scotty Girvin , DO Primary Care Provide r, Attending Provider Active Start: April 26, 2024 Team Status: Inactive Member Role Status Tawanda Ruiz DO Primary Care Provide r, Attending Provider Active Start: May 02, 2024 End: May 02, 2024 Team Status: Inactive Member Role Status Tawanda Ruiz DO Primary Care Provider Active Rajendar Angulo MD Attending Provider Active Team Status: Inactive Member Role Status Tawanda Ruiz DO Primary Care Provider Active Mahendra Romo , PhD Attending Provider Active [employer] 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 Relationship Specialty Start Date End Date Vincent Aguilar [address] [place] [phone] PCP - General Neurology 07/29/22 [employer] Relationship Specialty Start Date End Date Vincent Aguilar [address] [place] [phone] PCP - General Neurology 07/29/22 [employer] Relationship Specialty Start Date End Date Scotty Ruiz MD [address] [place] [address] PCP - General Family Medicine 11/23/23 Team Status: Inactive Member Role Status Tawanda Ruiz DO Primary Care Provider Active S tart: June 07, 2024 End: June 07, 2024 Rajendra Angulo MD Attending Provider Active Start: June 07, 2024 End: June 07, 2024 Team Status: Active Member Role Status Tawanda Ruiz DO Primary Care Provide r, Attending Provider Active Start: June 19, 2024 Team Status: Active Member Role Status Tawanda Ruiz DO Primary Care Provider Active S tart: June 29, 2024 Estefani Mooney PA-C Attending Provider Active Start: June 29, 2024 Team Status: Active Member Role Status Tawanda Ruiz DO Primary Care Provider Active S tart: June 29, 2024 Drew Hebert DO Attending Provider Active Sta rt: June 29, 2024 Team Status: Active Member Role Status Tawanda Ruiz DO Primary Care Provide r, Attending Provider Active Start: July 14, 2024 Team Status: Inactive Member Role Status Tawanda Ruiz DO Primary Care Provide r, Attending Provider Active Start: July 26, 2024 End: July 26, 2024 Goals (unrecognized section and content) Goals may be documented in a n alternate section Source Comments (unrecognize d section and content) In the event this informatio n is protected by the Federal Confidentiality of Alcohol and Drug Abuse Patient Records regulations: The Federal rules restrict any use of the information to criminally investigate or prosecute any alcohol or drug abuse patient.[facility] Hospital[facility] the event this information is protected by the Federal Confidentiality of Alcohol and Drug Abuse Patient Records regulations: The Federal rules restrict any use of the information to criminally investigate or prosecute any alcohol or drug abuse patient.[facility] HospitalIn the event this information is protected by the Federal Confidentiality of Alcohol and Drug Abuse Patient Records regulations: The Federal rules restrict any use of the information to criminally investigate or prosecute any alcohol or drug abuse patient.[facility] INFORMATION SOURCE (unrecogn ized section and content) DATE CREATED AUTHOR 08/30/2022 [facility] DATE CREATED AUTHOR AUTHOR'S ORGANIZ ATION 09/27/2022 [facility] DATE CREATED AUTHOR AUTHOR'S ORGANIZ ATION 01/13/2023 Elisabeth [facility] DATE CREATED AUTHOR AUTHOR'S ORGANIZ ATION 06/04/2023 [facility] DATE CREATED AUTHOR AUTHOR'S ORGANIZ ATION 04/22/2024 [facility] FOR RECORDS PERTAINING TO PATIENTS WHO [...] BE BASED ON THE PRIMARY CLINICAL RECORDS. [facility] [employer] provides no warranty or guarantee of the accuracy or completeness of information in this document.
== END 2024-08-07 09:48 | disposition home or self-care (01) ==
LOC: MAMMO 09:48
PROVIDERS: PCP Family Medicine; Visit Provider Family Medicine
DX: Z12.31 Encounter for screening mammogram for malignant neoplasm of breast (principal); Z80.1 Family history of malignant neoplasm of trachea, bronchus and lung
CPT/HCPCS: 77063; 77067

== ENCOUNTER 2024-08-13 16:20 | Emergency (ER) | payer MEDICARE, SELFPAY ==
[2024-08-13 16:27] VITALS: BP 146/83; PULSE 104; TEMP 36.7; O2SAT 99; BMI 28.2
--- OUTSIDE RECORDS SUMMARY | 2024-08-13 16:27 | XMS_ITS | CCD ---
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 Name Role Phone Scotty Ruiz Unavailable Rajendra Angulo Unavailable DO Scotty Ruiz Primary Care Provider MD Rjaendra Angulo Attending Provider Clarissa, PhD Mahendra Attending Provider Vincent Aguilar Primary Care Provider [phone] Scotty Ruiz Primary Care Physician [phone] SCOTTY RUIZ Referring Unavailable SCOTTY RUIZ Primary Care Unavailable RADHA, RICCI Attending Unavailable VINCENT AGUILAR Primary Care Unavailable RADHA, RICCI Referring Unavailable VINCENT AGUILAR Primary Care Unavailable ABDIVINE, RICCI Referring Unavailable RADHA, RICCI Attending Unavailable VINCENT AGUILAR Primary Care Unavailable HUSSAINAR, RICCI Referring Unavailable VINCENT AGUILAR Primary Care Unavailable HUSSAINAR, RICCI Referring Unavailable Janie Joseph Unavailable Scotty Ruiz Referring Unavailabl e NILKerry Fernández Attending Unavailable Kerry JONES Attending Unavailable Kerry JONES Attending Unavailable Scotty Ruiz Referring Unavailabl e MOMO, Kerry Castelan Attending Unavailable DO Scotty Ruiz Primary Care Provider [phone] Clarissa, PhD Mahendra Attending Provider MOMO Epstein, [...] Unavailable Girvin, DO Fajardo Primary Care Provider [phone] MD Rajendra Angulo Attending Provider Mahendra Romo [...] (14 sources) Penicillin V Drug Allergy rash [employer] Other (17 sources) Valproate; Translations: [divalproex sodium] Drug Allergy [facility] [place] (4 sources) Penicillins; Translations: [PENICILLINS] Propensity to adverse reactions 03-13-20 [facility] (10 sources) PHENobarbital; Translations: [phenobarbital] Drug Allergy 03-13-20 08 Other (qualifier value), Other, Rash [facility] (4 sources) Penicillin; Translations: [penicillin] Drug Allergy Eruption of skin (disorder) [facility] (2 sources) Valproate; Translations: [Depakote] Drug Allergy [facility] (1 source) benzoin resin Drug Allergy [facility] (1 source) Penicillins Drug allergy (disorder) 08-13-20 15 [facility] (1 source) Phenytoin Drug Allergy [facility] (1 source) Unable to Assess Drug allergy (disorder) 09-19-20 [facility] (2 sources) Penicillins Drug Intolerance 03-13-20 08 Rash, Unknown [facility] (2 sources) Valproate Drug Allergy 11-08-18 80 [facility] Healthcare Medications Current Medications Medication Drug [...] Start: 10-28-2023 ergocalciferol (Vitamin D2) 1.25 MG (59719 UT) capsule Start: 08-07-2016 VITAMIN D 50,0 00 unit capsule take 1 capsule by mo ut every week Vitamin D (Ergocalciferol) 37066 UNIT TAKE 1 CAPSULE BY MOUTH ONCE A WEEK for 90 days Active take 1 capsule by mo ut every week Vitamin D (Ergocalciferol) 91264 UNIT TAKE 1 CAPSULE BY MOUTH ONCE [...] Status: Ordered take 3 tablets by mo [facility] in the morning lacosamide (Vimpat) 50 [...] one(1) tablet d aily. 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 therapy; Translations: [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] Onset: 07-14-2022 Resolved: 07-14-2022 [...] 07-14-2024 Free T4 [Mass/Vol] 0.85 ng/dL 0.76-1.46 [facility] TSH Qn 2.233 m[IU]/L 0.358-3.740 [facility] No Panel Informationon 07-14 Free Triiodothyronine 2.00 pg/mL Low 2.18-3.98 [facility] Parathyroid Hormone (Intact) 42 pg/mL 15-65 [facility] Comment on above: Performed at: [employer] [place], [place] [id number] Director: Lonnie Mackenzie PhD, Phone: [phone] Phosphorus Level 3.3 mg/dL 2.6-4.7 [facility] Serum ionized calcium measur ement using ion specific electrode (mass/volume)on 07-14-2024 Calcium.ionized ISE [Mass/Vol] 4.8 mg/dL 4.5-5.6 [facility] Comment on above: Performed at: [employer] [place], [place] [id number] Director: Lonnie Mackenzie PhD, Phone: [phone] Basophils Auto (Bld) [#/Vol] on 06-29-2024 Basophils (Bld) [#/Vol] 0.0 10 3/uL 0.0-0.1 [facility] Basophils/100 WBC Auto (Bld) on 06-29-2024 Basophils/100 WBC (Bld) 0.5 % 0.2-2.0 [facility] Eosinophils/100 WBC Auto (Bl d)on 06-29-2024 Eosinophils/100 WBC (Bld) 1.9 % 0.9-7.0 [facility] Erythrocyte distribution wid th Auto (RBC) [Ratio]on 06-29-2024 Erythrocyte distribution width (RBC) [Ratio] 11.9 % 11.0-15.0 [facility] Estimated glomerular filtrat ion rate (GFR) non- Americanon 06-29-2024 GFR/1.73 sq M.predicted among non-blacks MDRD (S/P/Bld) [Vol rate/Area] mL/min/{1.73_m2} >=60 [facility] Globulin Calc (S) [Mass/Vol] on 06-29-2024 Globulin (S) [Mass/Vol] 3.7 g/dL [facility] Hematocrit Auto (Bld) [Volum e fraction]on 06-29-2024 Hematocrit (Bld) [Volume fraction] 41.3 % 36.0-48.0 [facility] Hemoglobin [Mass/volume] in Bloodon 06-29-2024 Hemoglobin (Bld) [Mass/Vol] 14.8 g/dL 12.0-16.0 [facility] INR in Platelet poor plasma by Coagulation assayon 06-29-2024 INR Coag (PPP) [Relative time] 1.03 {INR} [facility] Comment on above: DESIRED INR:2.0-3.0 CONDITIONS NOT LISTED BELOW2.5-3.5 FOR PROSTHETIC HEART VALVE REPLACEMENT2.5-3.5 RECURRENT THROMBOSIS Laboratory - Chemistry and C hemistry - challengeon 06-29-2024 Bilirubin Ql (U) Negative NEGATIVE [facility] Glucose (U) [Mass/Vol] Negative NEGATIVE [facility] Ketones Ql (U) Negative NEGATIVE [facility] pH (U) 7.0 [pH] 5.0-9.0 [facility] Specific gravity (U) [Rel density] <=1.005 Abnormal 1.005-1.025 [facility] Urobilinogen Qn (U) 0.2 {Anita'U}/dL 0.2-1.0 [facility] Albumin [Mass/Vol] 3.8 g/dL 3.4-5.0 [facility] ALP [Catalytic activity/Vol] 124 U/L High 46-116 [facility] ALT [Catalytic activity/Vol] 24 U/L 14-59 [facility] AST [Catalytic activity/Vol] 25 U/L 15-37 [facility] Bilirubin [Mass/Vol] 0.5 mg/dL 0.2-1.0 [facility] Calcium [Mass/Vol] 9.0 mg/dL 8.5-10.1 [facility] Chloride [Moles/Vol] 94 mmol/L Low 98-107 [facility] CO2 [Moles/Vol] 26.3 mmol/L 21.0-32.0 [facility] Creatinine [Mass/Vol] 0.76 mg/dL 0.55-1.02 [facility] GFR/1.73 sq M.predicted MDRD (S/P/Bld) [Vol rate/Area] mL/min/{1.73_m2} >=60 [facility] Glucose [Mass/Vol] 99 mg/dL 74-106 [facility] Lactate [Moles/Vol] 2.6 mmol/L High 0.4-2.0 [facility] Comment on above: RESULTS CALLED TO HOANG BURGESS Lipase [Catalytic activity/Vol] 52.0 U/L 16.0-77.0 [facility] Potassium [Moles/Vol] 3.9 mmol/L 3.5-5.1 [facility] Protein [Mass/Vol] 7.5 g/dL 6.4-8.2 [facility] Sodium [Moles/Vol] 129 mmol/L Low 136-145 [facility] Urea nitrogen [Mass/Vol] 14.0 mg/dL 7.0-18.0 [facility] Urea nitrogen/Creatinine [Mass ratio] 18.4 mg/mg [facility] Laboratory - Hematology and Cell countson 06-29-2024 Immature granulocytes/100 WBC (Bld) 0.2 % 0.0-0.5 [facility] Laboratory - Specimen inform ationon 06-29-2024 Appearance (U) CLEAR CLEAR [facility] Color (U) LT. YELLOW YELLOW [facility] Laboratory - Urinalysison Leukocyte esterase Test strip Ql (U) Negative NEGATIVE [facility] Nitrite Ql (U) Negative NEGATIVE [facility] Protein Ql (U) Negative NEG/TRACE [facility] Leukocytes [#/volume] correc trisha for nucleated erythrocytes in Blood by Automated counon 06-29-2024 WBC corrected for nucl RBC Auto (Bld) [#/Vol] 5.9 10 3/uL 4.0-11.0 [facility] Lymphocytes Auto (Bld) [#/Vo l]on 06-29-2024 Lymphocytes (Bld) [#/Vol] 1.9 10 3/uL 1.2-3.8 [facility] Lymphocytes/100 WBC Auto (Bl d)on 06-29-2024 Lymphocytes/100 WBC (Bld) 32.8 % 20.5-60.0 [facility] MCH Auto (RBC) [Entitic mass ]on 06-29-2024 MCH (RBC) [Entitic mass] 33.9 pg 26.7-34.0 [facility] MCHC Auto (RBC) [Mass/Vol]on 06-29-2024 MCHC (RBC) [Mass/Vol] 35.8 g/dL High 29.9-35.2 [facility] MCV Auto (RBC) [Entitic vol] on 06-29-2024 MCV (RBC) [Entitic vol] 94.7 fL 81.0-99.0 [facility] Monocytes Auto (Bld) [#/Vol] on 06-29-2024 Monocytes (Bld) [#/Vol] 0.6 10 3/uL 0.3-0.8 [facility] Monocytes/100 WBC Auto (Bld) on 06-29-2024 Monocytes/100 WBC (Bld) 10.3 % 1.7-12.0 [facility] Neutrophils Auto (Bld) [#/Vo l]on 06-29-2024 Neutrophils (Bld) [#/Vol] 3.2 10 3/uL 1.4-6.5 [facility] Neutrophils/100 WBC Auto (Bl d)on 06-29-2024 Neutrophils/100 WBC (Bld) 54.3 % 43.0-75.0 [facility] No Panel Informationon 06-29 Urine Microscopic Review NO [facility] Urine Occult Blood Negative NEGATIVE [facility] Eosinophils # (Auto) 0.1 10 3/uL 0.0-0.7 [facility] Immature Granulocyte # (Auto) 0.01 10 3/uL 0.00-0.03 [facility] Troponin I High Sensitivity <4.0 pg/mL Low 4.0-51.3 [facility] Comment on above: CUT-OFF POINTS HAVE [...] (Bld) [Entitic vol] 8.7 fL Low 9.5-13.5 [facility] Platelets Auto (Bld) [#/Vol] on 06-29-2024 Platelets (Bld) [#/Vol] 310 10 3/uL 150-450 [facility] Prothrombin time (PT)on 06-09 PT Coag (PPP) [Time] 10.9 s 9.0-11.6 [facility] RBC Auto (Bld) [#/Vol]on RBC (Bld) [#/Vol] 4.36 10 6/uL 4.20-5.40 [facility] Serum or plasma albumin/glob ulin mass ratioon 06-29-2024 Albumin/Globulin [Mass ratio] 1.0 {ratio} [facility] Serum or plasma anion gap de terminationon 06-29-2024 Anion gap [Moles/Vol] 12.6 mmol/L [facility] Basophils Auto (Bld) [#/Vol] on 06-19-2024 Basophils (Bld) [#/Vol] 0.0 10 3/uL 0.0-0.1 [facility] Basophils/100 WBC Auto (Bld) on 06-19-2024 Basophils/100 WBC (Bld) 0.5 % 0.2-2.0 [facility] Blood thiamine measurement ( moles/volume)on 06-19-2024 Thiamine (Bld) [Moles/Vol] 168.2 nmol/L 66.5-200.0 [facility] Comment on above: This test was develo ped and its performance characteristicsdetermined by [employer]. It has not been cleared orapproved by the Food and Drug Administration.Performed at: [facility] [place] [facility] [id number] Director: Chata Patel MD, Phone: [phone] Eosinophils/100 WBC Auto (Bl d)on 06-19-2024 Eosinophils/100 WBC (Bld) 0.0 % Low 0.9-7.0 [facility] Erythrocyte distribution wid th Auto (RBC) [Ratio]on 06-19-2024 Erythrocyte distribution width (RBC) [Ratio] 12.0 % 11.0-15.0 [facility] Estimated glomerular filtrat ion rate (GFR) non- Americanon 06-19-2024 GFR/1.73 sq M.predicted among non-blacks MDRD (S/P/Bld) [Vol rate/Area] mL/min/{1.73_m2} >=60 [facility] Globulin Calc (S) [Mass/Vol] on 06-19-2024 Globulin (S) [Mass/Vol] 3.2 g/dL [facility] Hematocrit Auto (Bld) [Volum e fraction]on 06-19-2024 Hematocrit (Bld) [Volume fraction] 40.4 % 36.0-48.0 [facility] Hemoglobin [Mass/volume] in Bloodon 06-19-2024 Hemoglobin (Bld) [Mass/Vol] 14.1 g/dL 12.0-16.0 [facility] Iron binding capacity [Mass/ volume] in Serum or Plasmaon 06-19-2024 Iron binding capacity [Mass/Vol] 264.0 ug/dL 250.0-450.0 [facility] Iron saturation [Mass Fracti on] in Serum or Plasmaon 06-19-2024 Iron saturation [Mass fraction] 51.5 % [facility] Laboratory - Chemistry and C hemistry - challengeon 06-19-2024 Albumin [Mass/Vol] 3.9 g/dL 3.4-5.0 [facility] ALP [Catalytic activity/Vol] 122 U/L High 46-116 [facility] ALT [Catalytic activity/Vol] 26 U/L 14-59 [facility] AST [Catalytic activity/Vol] 19 U/L 15-37 [facility] Bilirubin [Mass/Vol] 0.5 mg/dL 0.2-1.0 [facility] Calcium [Mass/Vol] 8.7 mg/dL 8.5-10.1 [facility] Chloride [Moles/Vol] 95 mmol/L Low 98-107 [facility] CO2 [Moles/Vol] 28.9 mmol/L 21.0-32.0 [facility] Cobalamin (Vitamin B12) [Mass/Vol] 2841.0 pg/mL High 193.0-986.0 [facility] Creatinine [Mass/Vol] 0.70 mg/dL 0.55-1.02 [facility] Ferritin [Mass/Vol] 223.0 ng/mL 8.0-252.0 [facility] GFR/1.73 sq M.predicted MDRD (S/P/Bld) [Vol rate/Area] mL/min/{1.73_m2} >=60 [facility] Glucose [Mass/Vol] 92 mg/dL 74-106 [facility] Iron [Mass/Vol] 136.0 ug/dL 50.0-170.0 [facility] Magnesium [Mass/Vol] 1.8 mg/dL 1.8-2.4 [facility] Potassium [Moles/Vol] 3.7 mmol/L 3.5-5.1 [facility] Protein [Mass/Vol] 7.1 g/dL 6.4-8.2 [facility] Sodium [Moles/Vol] 131 mmol/L Low 136-145 [facility] Urea nitrogen [Mass/Vol] 10.0 mg/dL 7.0-18.0 [facility] Urea nitrogen/Creatinine [Mass ratio] 14.3 mg/mg [facility] Laboratory - Hematology and Cell countson 06-19-2024 Immature granulocytes/100 WBC (Bld) 0.0 % 0.0-0.5 [facility] Leukocytes [#/volume] correc trisha for nucleated erythrocytes in Blood by Automated counon 06-19-2024 WBC corrected for nucl RBC Auto (Bld) [#/Vol] 4.0 10 3/uL 4.0-11.0 [facility] Lymphocytes Auto (Bld) [#/Vo l]on 06-19-2024 Lymphocytes (Bld) [#/Vol] 1.7 10 3/uL 1.2-3.8 [facility] Lymphocytes/100 WBC Auto (Bl d)on 06-19-2024 Lymphocytes/100 WBC (Bld) 42.0 % 20.5-60.0 [facility] MCH Auto (RBC) [Entitic mass ]on 06-19-2024 MCH (RBC) [Entitic mass] 33.8 pg 26.7-34.0 [facility] MCHC Auto (RBC) [Mass/Vol]on 06-19-2024 MCHC (RBC) [Mass/Vol] 34.9 g/dL 29.9-35.2 [facility] MCV Auto (RBC) [Entitic vol] on 06-19-2024 MCV (RBC) [Entitic vol] 96.9 fL 81.0-99.0 [facility] Monocytes Auto (Bld) [#/Vol] on 06-19-2024 Monocytes (Bld) [#/Vol] 0.4 10 3/uL 0.3-0.8 [facility] Monocytes/100 WBC Auto (Bld) on 06-19-2024 Monocytes/100 WBC (Bld) 9.0 % 1.7-12.0 [facility] Neutrophils Auto (Bld) [#/Vo l]on 06-19-2024 Neutrophils (Bld) [#/Vol] 1.9 10 3/uL 1.4-6.5 [facility] Neutrophils/100 WBC Auto (Bl d)on 06-19-2024 Neutrophils/100 WBC (Bld) 48.5 % 43.0-75.0 [facility] No Panel Informationon 06-19 25-Hydroxy Vitamin D Total 117.9 ng/mL [facility] Comment on above: <20 ng/mL Vit D defi cient20-<30 ng/mL Vit D [id number] ng/mL Vit D sufficient>100 ng/mL Potential Toxicity Eosinophils # (Auto) 0.0 10 3/uL 0.0-0.7 [facility] Folate 26.60 ng/mL 8.60-58.90 [facility] Immature Granulocyte # (Auto) 0.00 10 3/uL 0.00-0.03 [facility] Phosphorus Level 3.6 mg/dL 2.6-4.7 [facility] Platelet mean volume Auto (B ld) [Entitic vol]on 06-19-2024 Platelet mean volume (Bld) [Entitic vol] 8.6 fL Low 9.5-13.5 [facility] Platelets Auto (Bld) [#/Vol] on 06-19-2024 Platelets (Bld) [#/Vol] 296 10 3/uL 150-450 [facility] RBC Auto (Bld) [#/Vol]on RBC (Bld) [#/Vol] 4.17 10 6/uL Low 4.20-5.40 [facility] Serum or plasma albumin/glob ulin mass ratioon 06-19-2024 Albumin/Globulin [Mass ratio] 1.2 {ratio} [facility] Serum or plasma anion gap de terminationon 06-19-2024 Anion gap [Moles/Vol] 10.8 mmol/L [facility] Basophils Auto (Bld) [#/Vol] on 04-26-2024 Basophils (Bld) [#/Vol] 0.0 10 3/uL 0.0-0.1 [facility] Basophils/100 WBC Auto (Bld) on 04-26-2024 Basophils/100 WBC (Bld) 0.6 % 0.2-2.0 [facility] Cholesterol in LDL Calc [Mas s/Vol]on 04-26-2024 Cholesterol in LDL [Mass/Vol] 98.0 mg/dL [facility] Comment on above: <100 mg/dl [id number] 0-129 mg/dl NEAR OR ABOVE [id number] mg/dl BORDERLINE [id number] mg/dl HIGH>190 mg/dl VERY HIGH Cholesterol in VLDL Calc [Ma ss/Vol]on 04-26-2024 Cholesterol in VLDL [Mass/Vol] 4.2 mg/dL [facility] Eosinophils/100 WBC Auto (Bl d)on 04-26-2024 Eosinophils/100 WBC (Bld) 0.0 % Low 0.9-7.0 [facility] Erythrocyte distribution wid th Auto (RBC) [Ratio]on 04-26-2024 Erythrocyte distribution width (RBC) [Ratio] 12.4 % 11.0-15.0 [facility] Estimated glomerular filtrat ion rate (GFR) non- Americanon 04-26-2024 GFR/1.73 sq M.predicted among non-blacks MDRD (S/P/Bld) [Vol rate/Area] mL/min/{1.73_m2} >=60 [facility] Globulin Calc (S) [Mass/Vol] on 04-26-2024 Globulin (S) [Mass/Vol] 3.9 g/dL [facility] Glucose mean value [Mass/vol ume] in Blood Estimated from glycated hemoglobinon 04-26-2024 Average glucose Estimated from glycated hemoglobin (Bld) [Mass/Vol] 105 mg/dL [facility] Hematocrit Auto (Bld) [Volum e fraction]on 04-26-2024 Hematocrit (Bld) [Volume fraction] 41.3 % 36.0-48.0 [facility] Hemoglobin [Mass/volume] in Bloodon 04-26-2024 Hemoglobin (Bld) [Mass/Vol] 14.0 g/dL 12.0-16.0 [facility] Iron binding capacity [Mass/ volume] in Serum or Plasmaon 04-26-2024 Iron binding capacity [Mass/Vol] 300.0 ug/dL 250.0-450.0 [facility] Iron saturation [Mass Fracti on] in Serum or Plasmaon 04-26-2024 Iron saturation [Mass fraction] 59.3 % [facility] Laboratory - Chemistry and C hemistry - challengeon 04-26-2024 Albumin [Mass/Vol] 3.5 g/dL 3.4-5.0 [facility] ALP [Catalytic activity/Vol] 160 U/L High 46-116 [facility] ALT [Catalytic activity/Vol] 29 U/L 14-59 [facility] AST [Catalytic activity/Vol] 21 U/L 15-37 [facility] Bilirubin [Mass/Vol] 0.4 mg/dL 0.2-1.0 [facility] Calcium [Mass/Vol] 8.4 mg/dL Low 8.5-10.1 [facility] Chloride [Moles/Vol] 98 mmol/L 98-107 [facility] Cholesterol [Mass/Vol] 228 mg/dL High <=200 [facility] Cholesterol in HDL [Mass/Vol] 126 mg/dL High 40-60 [facility] Comment on above: > or =60 mg/dl - LOW CARDIOVASCULAR RISK<40 mg/dl - HIGH CARDIOVASCULAR RISK CO2 [Moles/Vol] 29.6 mmol/L 21.0-32.0 [facility] Creatinine [Mass/Vol] 0.71 mg/dL 0.55-1.02 [facility] Ferritin [Mass/Vol] 188.0 ng/mL 8.0-252.0 [facility] Free T4 [Mass/Vol] 0.72 ng/dL Low 0.76-1.46 [facility] GFR/1.73 sq M.predicted MDRD (S/P/Bld) [Vol rate/Area] mL/min/{1.73_m2} >=60 [facility] Glucose [Mass/Vol] 99 mg/dL 74-106 [facility] Iron [Mass/Vol] 178.0 ug/dL High 50.0-170.0 [facility] Potassium [Moles/Vol] 4.6 mmol/L 3.5-5.1 [facility] Protein [Mass/Vol] 7.4 g/dL 6.4-8.2 [facility] Sodium [Moles/Vol] 133 mmol/L Low 136-145 [facility] Triglyceride [Mass/Vol] 21 mg/dL <=150 [facility] TSH Qn 7.238 m[IU]/L High 0.358-3.740 [facility] Urea nitrogen [Mass/Vol] 9.0 mg/dL 7.0-18.0 [facility] Urea nitrogen/Creatinine [Mass ratio] 12.7 mg/mg [facility] Laboratory - Hematology and Cell countson 04-26-2024 HbA1c (Bld) [Mass fraction] 5.3 % 4.5-6.2 [facility] Comment on above: ADA RECOMMENDED LIMI T 4.0 - 6.0ADA THERAPEUTIC TARGET < 7.0ACTION SUGGESTED> 7.0 Immature granulocytes/100 WBC (Bld) 0.0 % 0.0-0.5 [facility] Leukocytes [#/volume] correc trisha for nucleated erythrocytes in Blood by Automated counon 04-26-2024 WBC corrected for nucl RBC Auto (Bld) [#/Vol] 4.9 10 3/uL 4.0-11.0 [facility] Lymphocytes Auto (Bld) [#/Vo l]on 04-26-2024 Lymphocytes (Bld) [#/Vol] 2.0 10 3/uL 1.2-3.8 [facility] Lymphocytes/100 WBC Auto (Bl d)on 04-26-2024 Lymphocytes/100 WBC (Bld) 41.3 % 20.5-60.0 [facility] MCH Auto (RBC) [Entitic mass ]on 04-26-2024 MCH (RBC) [Entitic mass] 32.7 pg 26.7-34.0 [facility] MCHC Auto (RBC) [Mass/Vol]on 04-26-2024 MCHC (RBC) [Mass/Vol] 33.9 g/dL 29.9-35.2 [facility] MCV Auto (RBC) [Entitic vol] on 04-26-2024 MCV (RBC) [Entitic vol] 96.5 fL 81.0-99.0 [facility] Monocytes Auto (Bld) [#/Vol] on 04-26-2024 Monocytes (Bld) [#/Vol] 0.4 10 3/uL 0.3-0.8 [facility] Monocytes/100 WBC Auto (Bld) on 04-26-2024 Monocytes/100 WBC (Bld) 7.5 % 1.7-12.0 [facility] Neutrophils Auto (Bld) [#/Vo l]on 04-26-2024 Neutrophils (Bld) [#/Vol] 2.5 10 3/uL 1.4-6.5 [facility] Neutrophils/100 WBC Auto (Bl d)on 04-26-2024 Neutrophils/100 WBC (Bld) 50.6 % 43.0-75.0 [facility] No Panel Informationon 04-26 25-Hydroxy Vitamin D Total 106.7 ng/mL [facility] Comment on above: <20 ng/mL Vit D defi cient20-<30 ng/mL Vit D mvevdjyxsnyd44-782 ng/mL Vit D sufficient>100 ng/mL Potential Toxicity Eosinophils # (Auto) 0.0 10 3/uL 0.0-0.7 [facility] Immature Granulocyte # (Auto) 0.00 10 3/uL 0.00-0.03 [facility] Total Triiodothyronine 74 ng/dL 71-180 [facility] Comment on above: Performed at: [address] [id number] Director: Lonnie Mackenzie PhD, Phone: [phone] Platelet mean volume Auto (B ld) [Entitic vol]on 04-26-2024 Platelet mean volume (Bld) [Entitic vol] 8.6 fL Low 9.5-13.5 [facility] Platelets Auto (Bld) [#/Vol] on 04-26-2024 Platelets (Bld) [#/Vol] 311 10 3/uL 150-450 [facility] RBC Auto (Bld) [#/Vol]on RBC (Bld) [#/Vol] 4.28 10 6/uL 4.20-5.40 [facility] Serum or plasma albumin/glob ulin mass ratioon 04-26-2024 Albumin/Globulin [Mass ratio] 0.9 {ratio} [facility] Serum or plasma anion gap de terminationon 04-26-2024 Anion gap [Moles/Vol] 10.0 mmol/L [facility] Serum or plasma total choles terol/high density lipoprotein (HDL) cholesterol mass rosalio 04-26-2024 Cholesterol.total/C holesterol in HDL [Mass ratio] 1.8 {ratio} [facility] Comment on above: 3.3 - 4.4 LOW RISK4. 4 - 7.1 AVERAGE RISK7.1 - 11.0 MODERATE RISK>11.0 HIGH RISK ALKP ISOENZYMESon 01-12-2023 ALP [Catalytic activity/Vol] 159 U/L Critically high 44-121 [facility] Comment on above: Performed By: #### A LKPISO #### [facility] [address] [place] [address] Dr. Cecilio Gale Bone Fraction: 36 % Normal 14-68 [facility] Comment on above: Performed By: #### A LKPISO #### [facility] [address] [place] [address] Dr. Cecilio Gale Intestinal Frac.: 6 % Normal 0-18 [facility] Comment on above: Performed By: #### A LKPISO #### [facility] [address] [place] [address] Dr. Cecilio Gale Liver Fraction: 59 % Normal 18-85 [facility] Comment on above: Performed By: #### A LKPISO #### [facility] [address] [place] [address] Dr. Cecilio Gale CBC AUTO DIFFon 01-11-2023 BASO # 0.0 103/ul Normal 0.0-0.1 [facility] Comment on above: Performed By: #### F T4, VITAD, FETIBC, FERR #### [facility] [address] [place] [address] Dr. Cecilio Gale Basophils/100 WBC (Bld) 0.9 % Normal 0.2-2.0 [facility] Comment on above: Performed By: #### F T4, VITAD, FETIBC, FERR #### [facility] [address] [place] [address] Dr. Cecilio Gale EO # 0.0 103/ul Normal 0.0-0.7 [facility] Comment on above: Performed By: #### F T4, VITAD, FETIBC, FERR #### [facility] [address] [place] [address] Dr. Cecilio Gale Eosinophils/100 WBC (Bld) 0.6 % Critically low 0.9-7.0 [facility] Comment on above: Performed By: #### F T4, VITAD, FETIBC, FERR #### [facility] [address] [place] [address] Dr. Cecilio Gale Erythrocyte distribution width (RBC) [Ratio] 11.8 % Normal 11.0-15.0 [facility] Comment on above: Performed By: #### F T4, VITAD, FETIBC, FERR #### [facility] [address] [place] [address] Dr. Cecilio Gale Hematocrit (Bld) [Volume fraction] 41.3 % Normal 36.0-48.0 [facility] Comment on above: Performed By: #### F T4, VITAD, FETIBC, FERR #### [facility] [address] [place] [address] Dr. Cecilio Gale Hemoglobin (Bld) [Mass/Vol] 14.5 g/dL Normal 12.0-16.0 [facility] Comment on above: Performed By: #### F T4, VITAD, FETIBC, FERR #### [facility] [address] [place] [address] Dr. Cecilio Gale IG # 0.01 10e3/ul Normal 0.00-0.03 [facility] Comment on above: Performed By: #### F T4, VITAD, FETIBC, FERR #### [facility] [address] [place] [address] Dr. Cecilio Gale IG % 0.2 % Normal 0.0-0.5 [facility] Comment on above: Performed By: #### F T4, VITAD, FETIBC, FERR #### [facility] [address] [place] [address] Dr. Cecilio Gale LYMPH # 1.8 103/ul Normal 1.2-3.8 [facility] Comment on above: Performed By: #### F T4, VITAD, FETIBC, FERR #### [facility] [address] [place] [address] Dr. Cecilio Gale Lymphocytes/100 WBC (Bld) 39.1 % Normal 20.5-60.0 [facility] Comment on above: Performed By: #### F T4, VITAD, FETIBC, FERR #### [facility] [address] [place] [address] Dr. Cecilio Gale MANUAL DIFF REQ NO Normal [facility] Comment on above: Performed By: #### F T4, VITAD, FETIBC, FERR #### [facility] [address] [place] [address] Dr. Cecilio Gale MCH (RBC) [Entitic mass] 32.7 pg Normal 26.7-34.0 [facility] Comment on above: Performed By: #### F T4, VITAD, FETIBC, FERR #### [facility] [address] [place] [address] Dr. Cecilio Gale MCHC (RBC) [Mass/Vol] 35.1 g/dL Normal 29.9-35.2 [facility] Comment on above: Performed By: #### F T4, VITAD, FETIBC, FERR #### [facility] [address] [place] [address] Dr. Cecilio Gale MCV (RBC) [Entitic vol] 93.0 fL Normal 81.0-99.0 [facility] Comment on above: Performed By: #### F T4, VITAD, FETIBC, FERR #### [facility] [address] [place] [address] Dr. Cecilio Gale MONO # 0.4 103/ul Normal 0.3-0.8 [facility] Comment on above: Performed By: #### F T4, VITAD, FETIBC, FERR #### [facility] [address] [place] [address] Dr. Cecilio Gale Monocytes/100 WBC (Bld) 9.2 % Normal 1.7-12.0 [facility] Comment on above: Performed By: #### F T4, VITAD, FETIBC, FERR #### [facility] [address] [place] [address] Dr. Cecilio Gale NEUT # 2.3 103/ul Normal 1.4-6.5 [facility] Comment on above: Performed By: #### F T4, VITAD, FETIBC, FERR #### [facility] [address] [place] [address] Dr. Cecilio Gale Neutrophils/100 WBC (Bld) 50.0 % Normal 43.0-75.0 [facility] Comment on above: Performed By: #### F T4, VITAD, FETIBC, FERR #### [facility] [address] [place] [address] Dr. Cecilio Gale Platelet mean volume (Bld) [Entitic vol] 8.6 fL Critically low 9.5-13.5 [facility] Comment on above: Performed By: #### F T4, VITAD, FETIBC, FERR #### [facility] [address] [place] [address] Dr. Cecilio Gale PLT 354 103/ul Normal 150-450 [facility] Comment on above: Performed By: #### F T4, VITAD, FETIBC, FERR #### [facility] [address] [place] [address] Dr. Cecilio Gale RBC 4.44 106/ul Normal 4.20-5.40 [facility] Comment on above: Performed By: #### F T4, VITAD, FETIBC, FERR #### [facility] [address] [place] [address] Dr. Cecilio Gale WBC 4.7 103/ul Normal 4.0-11.0 [facility] Comment on above: Performed By: #### F T4, VITAD, FETIBC, FERR #### [facility] [address] [place] [address] Dr. Cecilio Gale CULTURE URINEon 03-06-2023 CULTURE URINE Culture Observations : LIGHT GROWTH OF MIXED GENITAL CAMERON. NO POTENTIAL PATHOGENS SEEN. Normal [facility] Comment on above: Performed By: #### F T4, VITAD, FETIBC, FERR #### [facility] [address] [place] [address] Dr. Cecilio Gale FERRITINon 01-11-2023 Ferritin [Mass/Vol] 132.0 ng/mL Normal 8.0-252.0 [facility] Comment on above: Performed By: #### F T4, VITAD, FETIBC, FERR #### [facility] [address] [place] [address] Dr. Cecilio Gale FREE T3on 01-11-2023 FREE T3 2.03 pg/mlL Critically low 2.18-3.98 [facility] Comment on above: Performed By: #### F T4, VITAD, FETIBC, FERR #### [facility] [address] [place] [address] Dr. Cecilio Gale FREE T4on 01-11-2023 Free T4 [Mass/Vol] 0.82 ng/dL Normal 0.76-1.46 [facility] Comment on above: Performed By: #### F T4, VITAD, FETIBC, FERR #### [facility] [address] [place] [address] Dr. Cecilio Gale GLYCOHEMOGLOBIN A1Con 2022 ADA RECOMMENDATION SEE BELOW Normal [facility] Comment on above: Result Comment: ADA RECOMMENDED LIMIT 4.0 - 6.0 ADA THERAPEUTIC TARGET < 7.0 ACTION SUGGESTED > 7.0 Performed By: #### F T4, VITAD, FETIBC, FERR #### [facility] [address] [place] [address] Dr. Cecilio Gale Glucose [Mass/Vol] 103 mg/dL Normal [facility] Comment on above: Performed By: #### F T4, VITAD, FETIBC, FERR #### [facility] [address] [place] [address] Dr. Cecilio Gale HbA1c (Bld) [Mass fraction] 5.2 % Normal 4.5-6.2 [facility] Comment on above: Performed By: #### F T4, VITAD, FETIBC, FERR #### [facility] [address] [address] [address] Cecilio Gale IRON AND TIBCon 01-11-2023 % SATURATION 44.6 % Normal [facility] Comment on above: Performed By: #### F T4, VITAD, FETIBC, FERR #### [facility] [address] [address] [address] Cecilio Gale Iron [Mass/Vol] 121.0 ug/dL Normal 50.0-170.0 [facility] Comment on above: Performed By: #### F T4, VITAD, FETIBC, FERR #### [facility] [address] [place] [address] Dr. Cecilio Gale TIBC DIRECT 271.0 ug/dL Normal 250.0-450.0 [facility] Comment on above: Performed By: #### F T4, VITAD, FETIBC, FERR #### [facility] [address] [place] [address] Dr. Cecilio Gale LIPID PROFILEon 01-11-2023 CHOL-HDL RATIO NORM SEE BELOW Normal [facility] Comment on above: Result Comment: 3.3 - 4.4 LOW RISK 4.4 - 7.1 AVERAGE RISK 7.1 - 11.0 MODERATE RISK >11.0 HIGH RISK Performed By: #### F T4, VITAD, FETIBC, FERR #### [facility] [address] [place] [address] Dr. Cecilio Gale Cholesterol [Mass/Vol] 216 mg/dL Critically high <=200 [facility] Comment on above: Performed By: #### F T4, VITAD, FETIBC, FERR #### [facility] [address] [place] [address] Dr. Cecilio Gale Cholesterol in HDL [Mass/Vol] 96 mg/dL Critically high 40-60 [facility] Comment on above: Performed By: #### F T4, VITAD, FETIBC, FERR #### [facility] [address] [place] [address] Dr. Cecilio Gale Cholesterol in LDL [Mass/Vol] 103.0 mg/dL Normal [facility] Comment on above: Performed By: #### F T4, VITAD, FETIBC, FERR #### [facility] [address] [place] [address] Dr. Cecilio Gale Cholesterol.total/C holesterol in HDL [Mass ratio] 2.3 {ratio} Normal [facility] Comment on above: Performed By: #### F T4, VITAD, FETIBC, FERR #### [facility] [address] [address] [address] Cecilio Gale HDL NORMAL > or = 60 mg/dl - LO W CARDIOVASCULAR RISK <40 mg/dl - HIGH CARDIOVASCULAR RISK Normal [facility] Comment on above: Performed By: #### F T4, VITAD, FETIBC, FERR #### [facility] [address] [place] [address] Dr. Cecilio Gale LDL CALC NORMAL SEE BELOW Normal [facility] Comment on above: Result Comment: <100 mg/dl OPTIMAL 100 - 129 mg/dl NEAR OR ABOVE OPTIMAL 130 - 159 mg/dl BORDERLINE HIGH 160 - 189 mg/dl HIGH >190 mg/dl VERY HIGH Performed By: #### F T4, VITAD, FETIBC, FERR #### [facility] [address] [place] [address] Dr. Cecilio Gale Triglyceride [Mass/Vol] 86 mg/dL Normal <=150 [facility] Comment on above: Performed By: #### F T4, VITAD, FETIBC, FERR #### [facility] [address] [place] [address] Dr. Cecilio Gale VLDL CALC 17.2 mg/dL Normal [facility] Comment on above: Performed By: #### F T4, VITAD, FETIBC, FERR #### [facility] [address] [place] [address] Dr. Cecilio Gale PROF 14(COMP METB)on 023 Albumin [Mass/Vol] 3.8 g/dL Normal 3.4-5.0 [facility] Comment on above: Performed By: #### F T4, VITAD, FETIBC, FERR #### [facility] [address] [address] [address] Cecilio Gale Albumin/Globulin [Mass ratio] 1.0 {ratio} Normal [facility] Comment on above: Performed By: #### F T4, VITAD, FETIBC, FERR #### [facility] [address] [address] [address] Cecilio Gale ALP [Catalytic activity/Vol] 165 U/L Critically high 46-116 [facility] Comment on above: Performed By: #### F T4, VITAD, FETIBC, FERR #### [facility] [address] [address] [address] Cecilio Gale ALT [Catalytic activity/Vol] 24 U/L Normal 14-59 [facility] Comment on above: Performed By: #### F T4, VITAD, FETIBC, FERR #### [facility] [address] [place] [address] Dr. Cecilio Gale Anion gap [Moles/Vol] 14.6 mmol/L Normal [facility] Comment on above: Performed By: #### F T4, VITAD, FETIBC, FERR #### [facility] [address] [place] [address] Dr. Cecilio Gale AST [Catalytic activity/Vol] 19 U/L Normal 15-37 [facility] Comment on above: Performed By: #### F T4, VITAD, FETIBC, FERR #### [facility] [address] [place] [address] Dr. Cecilio Gale Bilirubin [Mass/Vol] 0.3 mg/dL Normal 0.2-1.0 [facility] Comment on above: Performed By: #### F T4, VITAD, FETIBC, FERR #### [facility] [address] [place] [address] Dr. Cecilio Gale Calcium [Mass/Vol] 8.9 mg/dL Normal 8.5-10.1 [facility] Comment on above: Performed By: #### F T4, VITAD, FETIBC, FERR #### [facility] [address] [place] [address] Dr. Cecilio Gale Chloride [Moles/Vol] 106 mmol/L Normal 98-107 [facility] Comment on above: Performed By: #### F T4, VITAD, FETIBC, FERR #### [facility] [address] [place] [address] Dr. Cecilio Gale CO2 [Moles/Vol] 25.3 mmol/L Normal 21.0-32.0 [facility] Comment on above: Performed By: #### F T4, VITAD, FETIBC, FERR #### [facility] [address] [place] [address] Dr. Cecilio Gale Creatinine [Mass/Vol] 0.72 mg/dL Normal 0.55-1.02 [facility] Comment on above: Performed By: #### F T4, VITAD, FETIBC, FERR #### [facility] [address] [place] [address] Dr. Cecilio Gale EGFR-AF HONDURAN >60 Normal >=60 [facility] Comment on above: Performed By: #### F T4, VITAD, FETIBC, FERR #### [facility] [address] [place] [address] Dr. Cecilio Gale EGFR-NON AF HONDURAN >60 Normal >=60 [facility] Comment on above: Performed By: #### F T4, VITAD, FETIBC, FERR #### [facility] [address] [place] [address] Dr. Cecilio Gale Globulin (S) [Mass/Vol] 3.7 g/dL Normal [facility] Comment on above: Performed By: #### F T4, VITAD, FETIBC, FERR #### [facility] [address] [place] [address] Dr. Cecilio Gale Glucose [Mass/Vol] 112 mg/dL Critically high 74-106 [facility] Comment on above: Performed By: #### F T4, VITAD, FETIBC, FERR #### [facility] [address] [place] [address] Dr. Cecilio Gale Potassium [Moles/Vol] 4.0 mmol/L Normal 3.5-5.1 [facility] Comment on above: Performed By: #### F T4, VITAD, FETIBC, FERR #### [facility] [address] [place] [address] Dr. Cecilio Gale Protein [Mass/Vol] 7.5 g/dL Normal 6.4-8.2 [facility] Comment on above: Performed By: #### F T4, VITAD, FETIBC, FERR #### [facility] [address] [place] [address] Dr. Cecilio Gale Sodium [Moles/Vol] 142 mmol/L Normal 136-145 [facility] Comment on above: Performed By: #### F T4, VITAD, FETIBC, FERR #### [facility] [address] [place] [address] Dr. Cecilio Gale Urea nitrogen [Mass/Vol] 9.0 mg/dL Normal 7.0-18.0 [facility] Comment on above: Performed By: #### F T4, VITAD, FETIBC, FERR #### [facility] [address] [place] [address] Dr. Cecilio Gale Urea nitrogen/Creatinine [Mass ratio] 12.5 mg/mg Normal [facility] Comment on above: Performed By: #### F T4, VITAD, FETIBC, FERR #### [facility] [address] [place] [address] Dr. Cecilio Gale TSHon 01-11-2023 TSH 1.685 uIU/mL Normal 0.358-3.740 [facility] Comment on above: Performed By: #### F T4, VITAD, FETIBC, FERR #### [facility] [address] [place] [address] Dr. Cecilio Gale UA RANDOM W/MICROSCOPICon BACTERIA NONE SEEN Normal NONE SEEN [facility] Comment on above: Performed By: #### F T4, VITAD, FETIBC, FERR #### [facility] [address] [place] [address] Dr. Cecilio Gale Bilirubin Ql (U) Negative Normal NEGATIVE [facility] Comment on above: Performed By: #### F T4, VITAD, FETIBC, FERR #### [facility] [address] [address] [address] Cecilio Gale CAST NONE SEEN Normal NONE SEEN [facility] Comment on above: Performed By: #### F T4, VITAD, FETIBC, FERR #### [facility] [address] [address] [address] Cecilio Gale Clarity (U) CLEAR Normal CLEAR [facility] Comment on above: Performed By: #### F T4, VITAD, FETIBC, FERR #### [facility] [address] [address] [address] Cecilio Gale Color (U) LT. YELLOW Normal YELLOW [facility] Comment on above: Performed By: #### F T4, VITAD, FETIBC, FERR #### [facility] [address] [place] [address] Dr. Cecilio Gale Crystals LM Nom (Urine sed) NONE SEEN Normal NONE SEEN [facility] Comment on above: Performed By: #### F T4, VITAD, FETIBC, FERR #### [facility] [address] [address] [address] Cecilio Gale Epithelial cells LM Ql (Urine sed) FEW Abnormal NONE SEEN /RARE [facility] Comment on above: Performed By: #### F T4, VITAD, FETIBC, FERR #### [facility] [address] [address] [address] Cecilio Gale Glucose Ql (U) Negative Normal NEGATIVE [facility] Comment on above: Performed By: #### F T4, VITAD, FETIBC, FERR #### [facility] [address] [address] [address] Cecilio Gale Hemoglobin Ql (U) Negative Normal NEGATIVE [facility] Comment on above: Performed By: #### F T4, VITAD, FETIBC, FERR #### [facility] [address] [place] [address] Dr. Cecilio Gale Ketones Ql (U) Negative Normal NEGATIVE [facility] Comment on above: Performed By: #### F T4, VITAD, FETIBC, FERR #### [facility] [address] [place] [address] Dr. Cecilio Gale LEUKOCYTES Negative Normal NEGATIVE [facility] Comment on above: Performed By: #### F T4, VITAD, FETIBC, FERR #### [facility] [address] [place] [address] Dr. Cecilio Gale MUCOUS NONE SEEN Normal NONE SEEN [facility] Comment on above: Performed By: #### F T4, VITAD, FETIBC, FERR #### [facility] [address] [address] [address] Cecilio Gale Nitrite Ql (U) Negative Normal NEGATIVE [facility] Comment on above: Performed By: #### F T4, VITAD, FETIBC, FERR #### [facility] [address] [place] [address] Dr. Cecilio Gale pH (U) 7.5 [pH] Normal 5-9 [facility] Comment on above: Performed By: #### F T4, VITAD, FETIBC, FERR #### [facility] [address] [place] [address] Dr. Cecilio Gale RBC NONE SEEN Abnormal 0-2 [facility] Comment on above: Performed By: #### F T4, VITAD, FETIBC, FERR #### [facility] [address] [place] [address] Dr. Cecilio Gale SPEC GRAVITY 1.015 Normal 1.005-<=1.0 25 [facility] Comment on above: Performed By: #### F T4, VITAD, FETIBC, FERR #### [facility] [address] [place] [address] Dr. Cecilio Gale UA PROTEIN Negative Normal NEGATIVE/ TRACE [facility] Comment on above: Performed By: #### F T4, VITAD, FETIBC, FERR #### [facility] [address] [place] [address] Dr. Cecilio Gale Urobilinogen Qn (U) 0.2 {Anita'U}/dL Normal 0.2 - 1. 0 [facility] Comment on above: Performed By: #### F T4, VITAD, FETIBC, FERR #### [facility] [address] [place] [address] Dr. Cecilio Gale WBC NONE SEEN Normal NONE SEEN [facility] Comment on above: Performed By: #### F T4, VITAD, FETIBC, FERR #### [facility] [address] [place] [address] Dr. Cecilio Gale VITAMIN D 25 OHon 01-11-2023 VIT D 25-OH 60.7 ng/mL Normal [facility] Comment on above: Performed By: #### F T4, VITAD, FETIBC, FERR #### [facility] [address] [place] [address] Dr. Cecilio Gale VIT D RANGES SEE BELOW Normal [facility] Comment on above: Result Comment: <20 ng/mL Vit D deficient 20 - <30 ng/mL Vit D insufficient 30 - 100 ng/mL Vit D sufficient >100 ng/mL Potential Toxicity Performed By: #### F T4, VITAD, FETIBC, FERR #### [facility] [address] [place] [address] Dr. Cecilio Gale LACOSAMIDEon 10-14-2022 Lacosamide 5.4 ug/mL Normal 5.0-10.0 [facility] Comment on above: Result Comment: This [...] #### F T4, VITAD, FETIBC, FERR #### [facility] [address] [place] [address] Dr. Cecilio Gale LEVETIRACETAM, SERUM OR PLAS MAon 10-12-2022 Levetiracetam, S 26.4 ug/mL Normal 10.0-40.0 [facility] Comment on above: Performed By: #### F T4, VITAD, FETIBC, FERR #### [facility] [address] [place], [place] [address] Dr. Cecilio Gale TEGRETOLon 10-08-2022 TEGRETOL <0.5 Critically low 4.0-12.0 [facility] Comment on above: Performed By: #### C ARB #### [facility] [id number] Cecilio Gale General Surgery Office/Clini c [...] 50,000 intl units (1.25 mg) oral capsule, [address] International_Unit= 1 cap(s), Oral, qWeek Allergies Depakote [...] mRNA BNT-162b2 vax 01/17/2021 Given Prophylaxis Normal [facility] Comment on above: Result Comment: [...] neoplasm of colon Vitamin D deficiency Normal [facility] Reminderson 09-22-2022 Reminders - From: Delmy Rebollar LPN To: N - Clinical; Sent: 09/22/2022 15:29:30 EST Show up: 08/09/2025 07:00:00 EDT Subject: colonoscopy recall Due Date/Time: 09/09/2025 07:00:00 EST Reminder/Recall Patient is due for colonoscopy 09/09/2025 due to history of tubular adenoma. Normal [facility] Pathology Noteon 09-11-2022 Pathology Note [id number]:127 Normal [facility] Outside Colonoscopyon 2021 Outside Colonoscopy [id number]#[id number]:127 Normal [facility] Lab Reportson 09-08-2022 Lab Reports [id number]#[id number]:127 Normal [facility] Covid-19 PCR (CVDTB)on 08-10 SARS-CoV-2 (COVID-19) RNA CAL+probe Ql (Unsp spec) Not detected Normal NOT DETECTED [facility] Comment on above: Result Comment: This test is not yet approved or cleared by the [place] FDA. When there are no FDA-approved or cleared tests available, and other criteria are met, FDA can make tests available under an emergency access mechanism called an Emergency Use Authorization (EUA). The EUA for this test is supported by the [place] of Health and Human Service's (HHS's) declaration [...] SARS-CoV-2. Performed By: #### C VDTB #### [facility] [address] [place] [address] Dr. Cecilio Gale Pre-Certification Formon Pre-Certification Form [id number]#[id number]:127 Normal [facility] CBC W Auto Differential pane l (Bld)on 08-21-2022 Basophils (Bld) [#/Vol] 0.05 10*3/uL Normal <0.11 [facility] Comment on above: Order Comment: Speci men Type: BLOOD SPECIMEN Ordering Facility: [facility] Address: [address] [place] [address] Performed By: #### 5 7021-8 #### [facility] CLIA [id number] [address] [place] [address] Basophils/100 WBC (Bld) 0.8 % Normal [facility] Comment on above: Order Comment: Speci men Type: BLOOD SPECIMEN Ordering Facility: [facility] Address: [address] [place] [address] Performed By: #### 5 7021-8 #### [facility] CLIA [id number] [address] [place] [id number] Differential cell count method Nom (Bld) Auto Normal [facility] Comment on above: Order Comment: Speci men Type: BLOOD SPECIMEN Ordering Facility: [facility] Address: [address] [place] [address] Performed By: #### 5 7021-8 #### [facility] CLIA [id number] [address] [place] [id number] Eosinophils (Bld) [#/Vol] 10*3/uL Normal <0.46 [facility] Comment on above: Order Comment: Speci men Type: BLOOD SPECIMEN Ordering Facility: [facility] Address: [address] [place] [address] Performed By: #### 5 7021-8 #### [facility] CLIA [id number] [address] [place] [id number] Eosinophils/100 WBC (Bld) 0.0 % Normal [facility] Comment on above: Order Comment: Speci men Type: BLOOD SPECIMEN Ordering Facility: [facility] Address: [address] [place] [address] Performed By: #### 5 7021-8 #### [facility] CLIA [id number] [address] [place] [address] Erythrocyte distribution width (RBC) [Ratio] 12.1 % Normal 11.5-15.0 [facility] Comment on above: Order Comment: Speci men Type: BLOOD SPECIMEN Ordering Facility: [facility] Address: [address] [place] [address] Performed By: #### 5 7021-8 #### [facility] CLIA [id number] [address] [place] [address] 95949 Hematocrit (Bld) [Volume fraction] 40.8 % Normal 36.0-46.0 [facility] Comment on above: Order Comment: Speci men Type: BLOOD SPECIMEN Ordering Facility: [facility] Address: [address] [place] [address] Performed By: #### 5 7021-8 #### [facility] CLIA [id number] [address] [place] [address] 13002 Hemoglobin (Bld) [Mass/Vol] 14.3 g/dL Normal 11.5-15.5 [facility] Comment on above: Order Comment: Speci men Type: BLOOD SPECIMEN Ordering Facility: [facility] Address: [address] [place] [address] Performed By: #### 5 7021-8 #### [facility] CLIA [id number] [address] [place] [address] 06103 IMMATURE GRAN % 0.2 % Normal [facility] Comment on above: Order Comment: Speci men Type: BLOOD SPECIMEN Ordering Facility: [facility] Address: [address] [place] [address] Performed By: #### 5 7021-8 #### [facility] CLIA [id number] [address] [place] [address] 57118 IMMATURE GRAN ABS <0.03 Normal <0.10 [facility] Comment on above: Order Comment: Speci men Type: BLOOD SPECIMEN Ordering Facility: [facility] Address: [address] [place] [address] Performed By: #### 5 7021-8 #### [facility] CLIA [id number] [address] [place] [address] 45718 Lymphocytes (Bld) [#/Vol] 2.64 10*3/uL Normal 1.00-4.00 [facility] Comment on above: Order Comment: Speci men Type: BLOOD SPECIMEN Ordering Facility: [facility] Address: [address] [place] [address] Performed By: #### 5 7021-8 #### [facility] CLIA [id number] [address] [place] [address] 18155 Lymphocytes/100 WBC (Bld) 41.4 % Normal [facility] Comment on above: Order Comment: Speci men Type: BLOOD SPECIMEN Ordering Facility: [facility] Address: [address] [place] [address] Performed By: #### 5 7021-8 #### [facility] CLIA [id number] [address] [place] [address] 06230 MCH (RBC) [Entitic mass] 33.2 pg Normal 26.0-34.0 [facility] Comment on above: Order Comment: Speci men Type: BLOOD SPECIMEN Ordering Facility: [facility] Address: [address] [place] [address] Performed By: #### 5 7021-8 #### [facility] CLIA [id number] [address] [place] [address] 06155 MCHC (RBC) [Mass/Vol] 35.0 g/dL Normal 30.5-36.0 [facility] Comment on above: Order Comment: Speci men Type: BLOOD SPECIMEN Ordering Facility: [facility] Address: [address] [place] [address] Performed By: #### 5 7021-8 #### [facility] CLIA [id number] [address] [place] [address] 75867 MCV (RBC) [Entitic vol] 94.7 fL Normal 80.0-100.0 [facility] Comment on above: Order Comment: Speci men Type: BLOOD SPECIMEN Ordering Facility: [facility] Address: [address] [place], [place] [address] Performed By: #### 5 7021-8 #### [facility] CLIA [id number] [address] [place] [address] 03941 Monocytes (Bld) [#/Vol] 0.61 10*3/uL Normal <0.87 [facility] Comment on above: Order Comment: Speci men Type: BLOOD SPECIMEN Ordering Facility: [facility] Address: [address] [place], [place] [address] Performed By: #### 5 7021-8 #### [facility] CLIA [id number] [address] [place] [address] 01677 Monocytes/100 WBC (Bld) 9.6 % Normal [facility] Comment on above: Order Comment: Speci men Type: BLOOD SPECIMEN Ordering Facility: [facility] Address: [address] [place], [place] [address] Performed By: #### 5 7021-8 #### [facility] CLIA [id number] [address] [place] [address] 79761 Neutrophils (Bld) [#/Vol] 3.06 10*3/uL Normal 1.45-7.50 [facility] Comment on above: Order Comment: Speci men Type: BLOOD SPECIMEN Ordering Facility: [facility] Address: [address] [place], [place] [address] Performed By: #### 5 7021-8 #### [facility] CLIA [id number] [address] [place] [address] 09514 Neutrophils/100 WBC (Bld) 48.0 % Normal [facility] Comment on above: Order Comment: Speci men Type: BLOOD SPECIMEN Ordering Facility: [facility] Address: [address] [place], [place] [address] Performed By: #### 5 7021-8 #### [facility] CLIA [id number] [address] [place] [address] Nucleated RBC (Bld) [#/Vol] 10*3/uL Normal <0.01 [facility] Comment on above: Order Comment: Speci men Type: BLOOD SPECIMEN Ordering Facility: [facility] Address: [address] [place] [address] Performed By: #### 5 7021-8 #### [facility] CLIA [id number] [address] [place] [address] 90830 Nucleated RBC/100 WBC (Bld) [Ratio] 0.0 /100 WBC Normal [facility] Comment on above: Order Comment: Speci men Type: BLOOD SPECIMEN Ordering Facility: [facility] Address: [address] [place] [address] Performed By: #### 5 7021-8 #### [facility] CLIA [id number] [address] [place] [address] 56731 Platelet mean volume (Bld) [Entitic vol] 8.3 fL Low 9.0-12.7 [facility] Comment on above: Order Comment: Speci men Type: BLOOD SPECIMEN Ordering Facility: [facility] Address: [address] [place] [address] Performed By: #### 5 7021-8 #### [facility] CLIA [id number] [address] [place] [address] 56916 Platelets (Bld) [#/Vol] 345 10*3/uL Normal 150-400 [facility] Comment on above: Order Comment: Speci men Type: BLOOD SPECIMEN Ordering Facility: [facility] Address: [address] [place] [address] Performed By: #### 5 7021-8 #### [facility] CLIA [id number] [address] [place] [address] 24318 RBC (Bld) [#/Vol] 4.31 10*6/uL Normal 3.90-5.20 [facility] Comment on above: Order Comment: Speci men Type: BLOOD SPECIMEN Ordering Facility: [facility] Address: [address] Performed By: #### 5 7021-8 #### [facility] CLIA [id number] [address] [place] [address] 54853 WBC (Bld) [#/Vol] 6.37 10*3/uL Normal 3.70-11.00 [facility] Comment on above: Order Comment: Speci men Type: BLOOD SPECIMEN Ordering Facility: [facility] Address: [address] [place], [place] [address] Performed By: #### 5 7021-8 #### [facility] CLIA [id number] [address] [place] [address] 77060 Comprehensive metabolic 2000 panelon 08-21-2022 Albumin [Mass/Vol] 4.3 g/dL Normal 3.9-4.9 [facility] Comment on above: Order Comment: Speci men Type: BLOOD SPECIMEN Ordering Facility: [facility] Address: [address] [place] [address] Performed By: #### 2 4323-8 #### [facility] CLIA [id number] [address] [place] [address] 52591 ALP [Catalytic activity/Vol] 167 U/L High 34-123 [facility] Comment on above: Order Comment: Speci men Type: BLOOD SPECIMEN Ordering Facility: [facility] Address: [address] Performed By: #### 2 4323-8 #### [facility] CLIA [id number] [address] [place] [address] 27661 ALT [Catalytic activity/Vol] 13 U/L Normal 7-38 [facility] Comment on above: Order Comment: Speci men Type: BLOOD SPECIMEN Ordering Facility: [facility] Address: [address] [place] [address] Performed By: #### 2 4323-8 #### [facility] CLIA [id number] [address] [place] [address] Anion gap [Moles/Vol] 9 mmol/L Normal 9-18 [facility] Comment on above: Order Comment: Speci men Type: BLOOD SPECIMEN Ordering Facility: [facility] Address: [address] [place] [address] Performed By: #### 2 4323-8 #### [facility] CLIA [id number] [address] [place] [address] AST [Catalytic activity/Vol] 16 U/L Normal 13-35 [facility] Comment on above: Order Comment: Speci men Type: BLOOD SPECIMEN Ordering Facility: [facility] Address: [address] [place] [address] Performed By: #### 2 4323-8 #### [facility] CLIA [id number] [address] [place] [address] 77118 Bilirubin [Mass/Vol] 0.3 mg/dL Normal 0.2-1.3 [facility] Comment on above: Order Comment: Speci men Type: BLOOD SPECIMEN Ordering Facility: [facility] Address: [address] [place] [address] Performed By: #### 2 4323-8 #### [facility] CLIA [id number] [address] [place] [address] 86535 Calcium [Mass/Vol] 9.5 mg/dL Normal 8.5-10.2 [facility] Comment on above: Order Comment: Speci men Type: BLOOD SPECIMEN Ordering Facility: [facility] Address: [address] [place] [address] Performed By: #### 2 4323-8 #### [facility] CLIA [id number] [address] [place] [address] 46831 Chloride [Moles/Vol] 98 mmol/L Normal 97-105 [facility] Comment on above: Order Comment: Speci men Type: BLOOD SPECIMEN Ordering Facility: [facility] Address: [address] [place] [address] Performed By: #### 2 4323-8 #### [facility] CLIA [id number] [address] [place] [address] CO2 [Moles/Vol] 28 mmol/L Normal 22-30 [facility] Comment on above: Order Comment: Speci men Type: BLOOD SPECIMEN Ordering Facility: [facility] Address: [address] [place] [address] Performed By: #### 2 4323-8 #### [facility] CLIA [id number] [address] [place] [address] 95605 Creatinine [Mass/Vol] 0.74 mg/dL Normal 0.58-0.96 [facility] Comment on above: Order Comment: Speci men Type: BLOOD SPECIMEN Ordering Facility: [facility] Address: [address] [place] [address] Performed By: #### 2 4323-8 #### [facility] CLIA [id number] [address] [place] [address] 80814 ESTIMATED GLOMERULAR FILTRATION RATE 96 mL/min/1.73m??? Normal >=60 [facility] Comment on above: Order Comment: Speci men Type: BLOOD SPECIMEN Ordering Facility: [facility] Address: [address] [place] [address] Result Comment: Domonique mated Glomerular Filtration Rate [...] GFR. Performed By: #### 2 4323-8 #### [facility] CLIA [id number] [address] [place] [address] 40546 Glucose [Mass/Vol] 110 mg/dL High 74-99 [facility] Comment on above: Order Comment: Speci men Type: BLOOD SPECIMEN Ordering Facility: [facility] Address: [address] [place] [address] Result Comment: The [place] [employer] (ADA) provides guidance for cutoff [...] Standards of Medical Care in Diabetes 2016, [place] [employer]. Diabetes Care. 2016.39(Suppl 1). Performed By: #### 2 4323-8 #### [facility] CLIA [id number] [address] [place] [address] 36816 Potassium [Moles/Vol] 4.6 mmol/L Normal 3.7-5.1 [facility] Comment on above: Order Comment: Speci men Type: BLOOD SPECIMEN Ordering Facility: [facility] Address: [address] [place] [address] Performed By: #### 2 4323-8 #### [facility] CLIA [id number] [address] [place] [address] 97128 Protein [Mass/Vol] 7.1 g/dL Normal 6.3-8.0 [facility] Comment on above: Order Comment: Speci men Type: BLOOD SPECIMEN Ordering Facility: [facility] Address: [address] [address] Performed By: #### 2 4323-8 #### [facility] CLIA [id number] [address] [place] [address] 62899 Sodium [Moles/Vol] 135 mmol/L Low 136-144 [facility] Comment on above: Order Comment: Speci men Type: BLOOD SPECIMEN Ordering Facility: [facility] Address: [address] [address] Performed By: #### 2 4323-8 #### [facility] CLIA [id number] [address] [place] [address] Urea nitrogen [Mass/Vol] 10 mg/dL Normal 7-21 [facility] Comment on above: Order Comment: Speci men Type: BLOOD SPECIMEN Ordering Facility: [facility] Address: [address] [place] [address] Performed By: #### 2 4323-8 #### [facility] CLIA [id number] [address] [place] [address] Ferritin SerPl-mCncon 2021 Ferritin [Mass/Vol] 196.0 ng/mL Normal 14.7-205.1 [facility] Comment on above: Order Comment: Speci men Type: BLOOD SPECIMEN Ordering Facility: [facility] Address: [address] [place] [address] Performed By: #### 5 0190-8, 2275-4 #### [facility] CLIA [id number] [address] [place] [address] [place] Iron and Iron binding capaci ty panelon 08-21-2022 Iron [Mass/Vol] 133 ug/dL Normal 41-186 [facility] Comment on above: Order Comment: Speci men Type: BLOOD SPECIMEN Ordering Facility: [facility] Address: [address] [place] [address] Performed By: #### 5 0190-8, 2275-4 #### [facility] CLIA [id number] [address] [place] [address] [place] Iron binding capacity [Mass/Vol] 280 ug/dL Normal 232-386 [facility] Comment on above: Order Comment: Speci men Type: BLOOD SPECIMEN Ordering Facility: [facility] Address: [address] [place], [place] [address] Performed By: #### 5 0190-8, 2275-4 #### [facility] CLIA [id number] [address] [place] [address] [place] Iron/TIBC [Molar ratio] 47.5 % Normal 15.0-57.0 [facility] Comment on above: Order Comment: Speci men Type: BLOOD SPECIMEN Ordering Facility: [facility] Address: [address] [place] [address] [place] [address] Performed By: #### 5 0190-8, 2276-4 #### [facility] CLIA [id number] [address] [place] [address] [place] Consent for Procedure/Surger yon 08-05-2022 Consent for Procedure/Surgery [id number] Normal [facility] Ambulatory Visit Summaryon 0 08-04-2022 [...] neoplasm of colon Vitamin D deficiency Normal [facility] Comprehensive metabolic 2000 panelon 07-30-2022 Albumin [Mass/Vol] 4.4 g/dL 3.9 - 4.9 g/dL [facility] ALP [Catalytic activity/Vol] 166 U/L High 34 - 123 U/L [facility] ALT [Catalytic activity/Vol] 18 U/L 7 - 38 U/L [facility] Anion gap [Moles/Vol] 11 mmol/L 9 - 18 mmol/L [facility] AST [Catalytic activity/Vol] 21 U/L 13 - 35 U/L [facility] Bilirubin [Mass/Vol] 0.4 mg/dL 0.2 - 1.3 mg/dL [facility] Calcium [Mass/Vol] 9.5 mg/dL 8.5 - 10. 2 mg/dL [facility] Chloride [Moles/Vol] 98 mmol/L 97 - 105 mmol/L [facility] CO2 [Moles/Vol] 25 mmol/L 22 - 30 mmol/L [facility] Creatinine [Mass/Vol] 0.66 mg/dL 0.58 - 0.96 mg/dL [facility] Estimated Glomerular Filtration Rate 104 mL/min/1.73m >=60 mL/min/1.73 m [facility] Glucose [Mass/Vol] 91 mg/dL 74 - 99 mg/dL [facility] Potassium [Moles/Vol] 4.8 mmol/L 3.7 - 5.1 mmol/L [facility] Protein [Mass/Vol] 7.3 g/dL 6.3 - 8.0 g/dL [facility] Sodium [Moles/Vol] 134 mmol/L Low 136 - 144 mmol/L [facility] Urea nitrogen [Mass/Vol] 8 mg/dL 7 - 21 mg/dL [facility] FERRITIN BLDon 07-30-2022 Ferritin [Mass/Vol] 176.0 ng/mL 14.7 - 205.1 ng/mL [facility] Iron and Iron binding capaci ty panelon 07-30-2022 Iron [Mass/Vol] 149 ug/dL 41 - 186 ug/dL [facility] Iron binding capacity [Mass/Vol] 273 ug/dL 232 - 386 ug/dL [facility] Iron/TIBC [Molar ratio] 54.6 % 15.0 - 57.0 % [facility] CBC W Auto Differential pane l (Bld)on 07-29-2022 Basophils (Bld) [#/Vol] 0.05 10*3/uL Normal <0.11 [facility] Comment on above: Order Comment: Speci men Type: BLOOD SPECIMEN Ordering Facility: [facility] Address: [address] [place] [address] Performed By: #### 5 7021-8 #### [facility] CLIA [id number] [address] [place] [address] 05957 Basophils/100 WBC (Bld) 0.9 % Normal [facility] Comment on above: Order Comment: Speci men Type: BLOOD SPECIMEN Ordering Facility: [facility] Address: [address] [place] [address] Performed By: #### 5 7021-8 #### [facility] CLIA [id number] [address] [place] [address] 93605 Differential cell count method Nom (Bld) Auto Normal [facility] Comment on above: Order Comment: Speci men Type: BLOOD SPECIMEN Ordering Facility: [facility] Address: [address] [address] Performed By: #### 5 7021-8 #### [facility] CLIA [id number] [address] [place] [address] 38402 Eosinophils (Bld) [#/Vol] 10*3/uL Normal <0.46 [facility] Comment on above: Order Comment: Speci men Type: BLOOD SPECIMEN Ordering Facility: [facility] Address: [address] [place] [address] Performed By: #### 5 7021-8 #### [facility] CLIA [id number] [address] [place] [address] 75637 Eosinophils/100 WBC (Bld) 0.0 % Normal [facility] Comment on above: Order Comment: Speci men Type: BLOOD SPECIMEN Ordering Facility: [facility] Address: [address] [place] [address] Performed By: #### 5 7021-8 #### [facility] CLIA [id number] [address] [place] [address] 86037 Erythrocyte distribution width (RBC) [Ratio] 12.1 % Normal 11.5-15.0 [facility] Comment on above: Order Comment: Speci men Type: BLOOD SPECIMEN Ordering Facility: [facility] Address: [address] [place] [address] Performed By: #### 5 7021-8 #### [facility] CLIA [id number] [address] [place] [address] 79460 Hematocrit (Bld) [Volume fraction] 41.6 % Normal 36.0-46.0 [facility] Comment on above: Order Comment: Speci men Type: BLOOD SPECIMEN Ordering Facility: [facility] Address: [address] [place] [address] Performed By: #### 5 7021-8 #### [facility] CLIA [id number] [address] [place] [address] 23562 Hemoglobin (Bld) [Mass/Vol] 14.5 g/dL Normal 11.5-15.5 [facility] Comment on above: Order Comment: Speci men Type: BLOOD SPECIMEN Ordering Facility: [facility] Address: [address] [place] [address] Performed By: #### 5 7021-8 #### [facility] CLIA [id number] [address] [place] [address] IMMATURE GRAN % 0.3 % Normal [facility] Comment on above: Order Comment: Speci men Type: BLOOD SPECIMEN Ordering Facility: [facility] Address: [address] [place] [address] Performed By: #### 5 7021-8 #### [facility] CLIA [id number] [address] [place] [address] 51701 IMMATURE GRAN ABS <0.03 Normal <0.10 [facility] Comment on above: Order Comment: Speci men Type: BLOOD SPECIMEN Ordering Facility: [facility] Address: [address] [place] [address] Performed By: #### 5 7021-8 #### [facility] CLIA [id number] [address] [place] [address] 11107 Lymphocytes (Bld) [#/Vol] 2.09 10*3/uL Normal 1.00-4.00 [facility] Comment on above: Order Comment: Speci men Type: BLOOD SPECIMEN Ordering Facility: [facility] Address: [address] [place] [address] Performed By: #### 5 7021-8 #### [facility] CLIA [id number] [address] [place] [address] 89988 Lymphocytes/100 WBC (Bld) 36.0 % Normal [facility] Comment on above: Order Comment: Speci men Type: BLOOD SPECIMEN Ordering Facility: [facility] Address: [address] [place] [address] Performed By: #### 5 7021-8 #### [facility] CLIA [id number] [address] [place] [address] MCH (RBC) [Entitic mass] 33.0 pg Normal 26.0-34.0 [facility] Comment on above: Order Comment: Speci men Type: BLOOD SPECIMEN Ordering Facility: [facility] Address: [address] [place] [address] Performed By: #### 5 7021-8 #### [facility] CLIA [id number] [address] [place] [address] 21039 MCHC (RBC) [Mass/Vol] 34.9 g/dL Normal 30.5-36.0 [facility] Comment on above: Order Comment: Speci men Type: BLOOD SPECIMEN Ordering Facility: [facility] Address: [address] [place] [address] Performed By: #### 5 7021-8 #### [facility] CLIA [id number] [address] [place] [address] 23504 MCV (RBC) [Entitic vol] 94.8 fL Normal 80.0-100.0 [facility] Comment on above: Order Comment: Speci men Type: BLOOD SPECIMEN Ordering Facility: [facility] Address: [address] [place] [address] Performed By: #### 5 7021-8 #### [facility] CLIA [id number] [address] [place] [address] 19871 Monocytes (Bld) [#/Vol] 0.44 10*3/uL Normal <0.87 [facility] Comment on above: Order Comment: Speci men Type: BLOOD SPECIMEN Ordering Facility: [facility] Address: [address] [place], [place] [address] Performed By: #### 5 7021-8 #### [facility] CLIA [id number] [address] [place] [address] 02468 Monocytes/100 WBC (Bld) 7.6 % Normal [facility] Comment on above: Order Comment: Speci men Type: BLOOD SPECIMEN Ordering Facility: [facility] Address: [address] Performed By: #### 5 7021-8 #### [facility] CLIA [id number] [address] [place] [id number] Neutrophils (Bld) [#/Vol] 3.21 10*3/uL Normal 1.45-7.50 [facility] Comment on above: Order Comment: Speci men Type: BLOOD SPECIMEN Ordering Facility: [facility] Address: [address] [place], [place] [id number] Performed By: #### 5 7021-8 #### [facility] CLIA [id number] [address] [place] [id number] Neutrophils/100 WBC (Bld) 55.2 % Normal [facility] Comment on above: Order Comment: Speci men Type: BLOOD SPECIMEN Ordering Facility: [facility] Address: [address] [place], [place] [address] Performed By: #### 5 7021-8 #### [facility] CLIA [id number] [address] [place] [address] 29187 Nucleated RBC (Bld) [#/Vol] 10*3/uL Normal <0.01 [facility] Comment on above: Order Comment: Speci men Type: BLOOD SPECIMEN Ordering Facility: [facility] Address: [address] [place], [place] [address] Performed By: #### 5 7021-8 #### [facility] CLIA [id number] [address] [place] [address] 76345 Nucleated RBC/100 WBC (Bld) [Ratio] 0.0 /100 WBC Normal [facility] Comment on above: Order Comment: Speci men Type: BLOOD SPECIMEN Ordering Facility: [facility] Address: [address] [place], [place] [address] Performed By: #### 5 7021-8 #### [facility] CLIA [id number] [address] [place] [address] 25598 Platelet mean volume (Bld) [Entitic vol] 8.6 fL Low 9.0-12.7 [facility] Comment on above: Order Comment: Speci men Type: BLOOD SPECIMEN Ordering Facility: [facility] Address: [address] [place] [address] Performed By: #### 5 7021-8 #### [facility] CLIA [id number] [address] [place] [address] 39899 Platelets (Bld) [#/Vol] 311 10*3/uL Normal 150-400 [facility] Comment on above: Order Comment: Speci men Type: BLOOD SPECIMEN Ordering Facility: [facility] Address: [address] [place] [address] Performed By: #### 5 7021-8 #### [facility] CLIA [id number] [address] [place] [address] 10625 RBC (Bld) [#/Vol] 4.39 10*6/uL Normal 3.90-5.20 [facility] Comment on above: Order Comment: Speci men Type: BLOOD SPECIMEN Ordering Facility: [facility] Address: [address] [place] [address] Performed By: #### 5 7021-8 #### [facility] CLIA [id number] [address] [place] [address] 92946 WBC (Bld) [#/Vol] 5.81 10*3/uL Normal 3.70-11.00 [facility] Comment on above: Order Comment: Speci men Type: BLOOD SPECIMEN Ordering Facility: [facility] Address: [address] [place] [address] Performed By: #### 5 7021-8 #### [facility] CLIA [id number] [address] [place] [address] 72611 Abs Immature Gran <0.10 k/uL [facility] Basophils (Bld) [#/Vol] 0.05 10*3/uL <0.11 k/uL [facility] Basophils/100 WBC (Bld) 0.9 % [facility] Differential cell count method Nom (Bld) Auto [facility] Eosinophils (Bld) [#/Vol] <0.46 k/uL [facility] Eosinophils/100 WBC (Bld) 0.0 % [facility] Erythrocyte distribution width (RBC) [Ratio] 12.1 % 11.5 - 15.0 % [facility] Hematocrit (Bld) [Volume fraction] 41.6 % 36.0 - 46.0 % [facility] Hemoglobin (Bld) [Mass/Vol] 14.5 g/dL 11.5 - 15.5 g/dL [facility] Immature Gran % 0.3 % [facility] Lymphocytes (Bld) [#/Vol] 2.09 10*3/uL 1.00 - 4.00 k/uL [facility] Lymphocytes/100 WBC (Bld) 36.0 % [facility] MCH (RBC) [Entitic mass] 33.0 pg 26.0 - 34.0 pg [facility] MCHC (RBC) [Mass/Vol] 34.9 g/dL 30.5 - 36.0 g/dL [facility] MCV (RBC) [Entitic vol] 94.8 fL 80.0 - 100.0 fL [facility] Monocytes (Bld) [#/Vol] 0.44 10*3/uL <0.87 k/uL [facility] Monocytes/100 WBC (Bld) 7.6 % [facility] Neutrophils (Bld) [#/Vol] 3.21 10*3/uL 1.45 - 7.50 k/uL [facility] Neutrophils/100 WBC (Bld) 55.2 % [facility] Nucleated RBC (Bld) [#/Vol] <0.01 k/uL [facility] Nucleated RBC/100 WBC (Bld) [Ratio] 0.0 /100 WBC [facility] Platelet mean volume (Bld) [Entitic vol] 8.6 fL Low 9.0 - 12.7 fL [facility] Platelets (Bld) [#/Vol] 311 10*3/uL 150 - 400 k/uL [facility] RBC (Bld) [#/Vol] 4.39 10*6/uL 3.90 - 5.2 0 m/uL [facility] WBC (Bld) [#/Vol] 5.81 10*3/uL 3.70 - 11.00 k/uL [facility] CNOVSPon 07-29-2022 CNOVSP Visit (SP) Office (Rachael ALFARO) MIKEY NEWTON ([id number]) 1965 F Date Time Provider Department 07/29/22 11:00 AM RICCI GARCIA During your visit today, we recorded the following information about you: Temperature Pulse Respiration Blood pressure 97.1 degrees 83/minute 16/minute 152/89 Weight Height 123 kg 1.651 m Ricci Garcia MD 07/30/2022 12:33 PM Signed NAME: Mikey Newton CLINIC NO.: [id number] DATE OF SERVICE: July 29, 2022 Referring [...] COLONSCOPY SCR (more content not included)... Normal [facility] Comprehensive metabolic 2000 panelon 07-29-2022 Albumin [Mass/Vol] 4.4 g/dL Normal 3.9-4.9 [facility] Comment on above: Order Comment: Speci men Type: BLOOD SPECIMEN Ordering Facility: [facility] Address: [address] [place] [address] Performed By: #### 2 4323-8 #### [facility] CLIA [id number] [address] [place] [address] [place] [facility] ALP [Catalytic activity/Vol] 166 U/L High 34-123 [facility] Comment on above: Order Comment: Speci men Type: BLOOD SPECIMEN Ordering Facility: [facility] Address: [address] [place], [place] [id number] Performed By: #### 2 4323-8 #### [facility] CLIA [id number] [address] [place] [address] [place] ALT [Catalytic activity/Vol] 18 U/L Normal 7-38 [facility] Comment on above: Order Comment: Speci men Type: BLOOD SPECIMEN Ordering Facility: [facility] Address: [address] [place], [place] [address] Performed By: #### 2 4323-8 #### [facility] CLIA [id number] [address] [place] [address] [place] Anion gap [Moles/Vol] 11 mmol/L Normal 9-18 [facility] Comment on above: Order Comment: Speci men Type: BLOOD SPECIMEN Ordering Facility: [facility] Address: [address] [place], [place] [address] Performed By: #### 2 4323-8 #### [facility] CLIA [id number] [address] [place] [address] [place] AST [Catalytic activity/Vol] 21 U/L Normal 13-35 [facility] Comment on above: Order Comment: Speci men Type: BLOOD SPECIMEN Ordering Facility: [facility] Address: [address] [place], [place] [id number] Performed By: #### 2 4323-8 #### [facility] CLIA [id number] [address] [place] [address] [place] Bilirubin [Mass/Vol] 0.4 mg/dL Normal 0.2-1.3 [facility] Comment on above: Order Comment: Speci men Type: BLOOD SPECIMEN Ordering Facility: [facility] Address: [address] [place] [address] Performed By: #### 2 4323-8 #### [facility] CLIA [id number] [address] [place] [address] [place] Calcium [Mass/Vol] 9.5 mg/dL Normal 8.5-10.2 [facility] Comment on above: Order Comment: Speci men Type: BLOOD SPECIMEN Ordering Facility: [facility] Address: [address] [place] [address] Performed By: #### 2 4323-8 #### [facility] CLIA [id number] [address] [place] [address] [place] Chloride [Moles/Vol] 98 mmol/L Normal 97-105 [facility] Comment on above: Order Comment: Speci men Type: BLOOD SPECIMEN Ordering Facility: [facility] Address: [address] [place] [address] Performed By: #### 2 4323-8 #### [facility] CLIA [id number] [address] [place] [address] [place] CO2 [Moles/Vol] 25 mmol/L Normal 22-30 [facility] Comment on above: Order Comment: Speci men Type: BLOOD SPECIMEN Ordering Facility: [facility] Address: [address] [place] [address] Performed By: #### 2 4323-8 #### [facility] CLIA [id number] [address] [place] [address] [place] Creatinine [Mass/Vol] 0.66 mg/dL Normal 0.58-0.96 [facility] Comment on above: Order Comment: Speci men Type: BLOOD SPECIMEN Ordering Facility: [facility] Address: [address] [place] [address] Performed By: #### 2 4323-8 #### [facility] CLIA [id number] [address] [place] [address] OF [facility] ESTIMATED GLOMERULAR FILTRATION RATE 104 mL/min/1.73m??? Normal >=60 [facility] Comment on above: Order Comment: Speci men Type: BLOOD SPECIMEN Ordering Facility: [facility] Address: [address] [place], [place] [id number] Result Comment: Domonique mated Glomerular Filtration Rate [...] GFR. Performed By: #### 2 4323-8 #### [facility] CLIA [id number] [address] [place] [address] [place] Glucose [Mass/Vol] 91 mg/dL Normal 74-99 [facility] Comment on above: Order Comment: Jesus bundy Type: BLOOD SPECIMEN Ordering Facility: [facility] Address: [address] [place] [address] Result Comment: The [place] Diabetes Association (ADA) provides guidance for cutoff [...] Standards of Medical Care in Diabetes 2016, [place] [employer]. Diabetes Care. 2016.39(Suppl 1). Performed By: #### 2 4323-8 #### [facility] CLIA [id number] [address] [place] [address] [place] Potassium [Moles/Vol] 4.8 mmol/L Normal 3.7-5.1 [facility] Comment on above: Order Comment: Speci men Type: BLOOD SPECIMEN Ordering Facility: [facility] Address: [address] [place] [address] Performed By: #### 2 4323-8 #### [facility] CLIA [id number] [address] [place] [address] [place] Protein [Mass/Vol] 7.3 g/dL Normal 6.3-8.0 [facility] Comment on above: Order Comment: Jesus bundy Type: BLOOD SPECIMEN Ordering Facility: [facility] Address: [address] [place] [address] Performed By: #### 2 4323-8 #### [facility] CLIA [id number] [address] [place] [address] [place] Sodium [Moles/Vol] 134 mmol/L Low 136-144 [facility] Comment on above: Order Comment: Speci men Type: BLOOD SPECIMEN Ordering Facility: [facility] Address: [address] [place] [address] Performed By: #### 2 4323-8 #### [facility] CLIA [id number] [address] [place] [address] [place] Urea nitrogen [Mass/Vol] 8 mg/dL Normal 7- [facility] Comment on above: Order Comment: Speci men Type: BLOOD SPECIMEN Ordering Facility: [facility] Address: [address] [place] [address] Performed By: #### 2 4323-8 #### [facility] CLIA [id number] [address] [place] [address] [place] Ferritin SerPl-mCncon 2021 Ferritin [Mass/Vol] 176.0 ng/mL Normal 14.7-205.1 [facility] Comment on above: Order Comment: Speci men Type: BLOOD SPECIMEN Ordering Facility: [facility] Address: [address] [place] [address] Performed By: #### 2 276-4, 96973-0 #### [facility] CLIA [id number] [address] [place] [address] [place] HFE (HEMOCHROMATOSIS)on 07-10 INTERPRETATION (HEMDNA) Normal [facility] Comment on above: Order Comment: Speci men Type: BLOOD SPECIMEN Ordering Facility: [facility] Address: [address] [place] [address] Result Comment: HFE (Hemochromatosis) Laboratory Accession Number: [id number] Result: C282Y: LOLA H63D: WT S65C: WT 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 Disclaimer: This test was developed and its performance characteristics determined by [facility] Pathology and Laboratory Medicine [place] ([facility]). It has not been cleared or approved by the FDA. [facility] is regulated under CLIA as certified to perform high- complexity testing. This test is used for clinical purposes. It should not be regarded as investigational or for research. Testing and interpretation performed at [facility], [address] [place] [address]. CLIA Number: [id number] As reviewed by Joshua Mendoza, PhD, FAC Performed By: #### H ROSALIE #### [facility] CLIA [id number] [address] [place] [address] [place] Iron and Iron binding capaci ty panelon 07-29-2022 Iron [Mass/Vol] 149 ug/dL Normal 41-186 [facility] Comment on above: Order Comment: Speci men Type: BLOOD SPECIMEN Ordering Facility: [facility] Address: [address] [place] [address] Performed By: #### 2 276-4, 45437-7 #### [facility] CLIA [id number] [address] [place] [address] [place] Iron binding capacity [Mass/Vol] 273 ug/dL Normal 232-386 [facility] Comment on above: Order Comment: Speci men Type: BLOOD SPECIMEN Ordering Facility: [facility] Address: [address] [place] [address] Performed By: #### 2 276-4, 82963-0 #### [facility] CLIA [id number] [address] [place] [address] [place] Iron/TIBC [Molar ratio] 54.6 % Normal 15.0-57.0 [facility] Comment on above: Order Comment: Speci men Type: BLOOD SPECIMEN Ordering Facility: [facility] Address: [address] [place] [address] Performed By: #### 2 276-4, 48710-8 #### [facility] CLIA [id number] [address] [place] [address] [place] UA RANDOM W/MICROSCOPICon BACTERIA NONE SEEN Normal NONE SEEN [facility] Comment on above: Performed By: #### F T4, VITAD, FETIBC, FERR #### [facility] [address] [place] [address] Dr. Cecilio Gale Bilirubin Ql (U) Negative Normal NEGATIVE [facility] Comment on above: Performed By: #### F T4, VITAD, FETIBC, FERR #### [facility] [address] [place] [address] Dr. Cecilio Gale CAST NONE SEEN Normal NONE SEEN [facility] Comment on above: Performed By: #### F T4, VITAD, FETIBC, FERR #### [facility] [address] [place] [address] Dr. Cecilio Gale Clarity (U) CLEAR Normal CLEAR [facility] Comment on above: Performed By: #### F T4, VITAD, FETIBC, FERR #### [facility] [address] [place] [address] Dr. Cecilio Gale Color (U) LT. YELLOW Normal YELLOW [facility] Comment on above: Performed By: #### F T4, VITAD, FETIBC, FERR #### [facility] [address] [place] [address] Dr. Cecilio Gale Crystals LM Nom (Urine sed) NONE SEEN Normal NONE SEEN [facility] Comment on above: Performed By: #### F T4, VITAD, FETIBC, FERR #### [facility] [address] [place] [address] Dr. Cecilio Gale Epithelial cells LM Ql (Urine sed) FEW Abnormal NONE SEEN /RARE [facility] Comment on above: Performed By: #### F T4, VITAD, FETIBC, FERR #### [facility] [address] [place] [address] Dr. Cecilio Gale Glucose Ql (U) Negative Normal NEGATIVE [facility] Comment on above: Performed By: #### F T4, VITAD, FETIBC, FERR #### [facility] [address] [place] [address] Dr. Cecilio Gale Hemoglobin Ql (U) Negative Normal NEGATIVE [facility] Comment on above: Performed By: #### F T4, VITAD, FETIBC, FERR #### [facility] [address] [place] [address] Dr. Cecilio Gale Ketones Ql (U) Negative Normal NEGATIVE [facility] Comment on above: Performed By: #### F T4, VITAD, FETIBC, FERR #### [facility] [address] [place] [address] Dr. Cecilio Gale LEUKOCYTES Negative Normal NEGATIVE [facility] Comment on above: Performed By: #### F T4, VITAD, FETIBC, FERR #### [facility] [address] [place] [address] Dr. Cecilio Gale MUCOUS NONE SEEN Normal NONE SEEN [facility] Comment on above: Performed By: #### F T4, VITAD, FETIBC, FERR #### [facility] [address] [address] [address] Cecilio Gale Nitrite Ql (U) Negative Normal NEGATIVE [facility] Comment on above: Performed By: #### F T4, VITAD, FETIBC, FERR #### [facility] [address] [place] [address] Dr. Cecilio Gale pH (U) 7.0 [pH] Normal 5-9 [facility] Comment on above: Performed By: #### F T4, VITAD, FETIBC, FERR #### [facility] [address] [place] [address] Dr. Cecilio Gale RBC NONE SEEN Abnormal 0-2 [facility] Comment on above: Performed By: #### F T4, VITAD, FETIBC, FERR #### [facility] [address] [place] [address] Dr. Cecilio Gale SPEC GRAVITY 1.010 Normal 1.005-<=1.[address] [place] [address] Comment on above: Performed By: #### F T4, VITAD, FETIBC, FERR #### [facility] [address] [place] [address] Dr. Cecilio Gale UA PROTEIN Negative Normal NEGATIVE/ TRACE [facility] Comment on above: Performed By: #### F T4, VITAD, FETIBC, FERR #### [facility] [address] [place] [address] Dr. Cecilio Gale Urobilinogen Qn (U) 0.2 {Anita'U}/dL Normal 0.2 - 1. 0 [facility] Comment on above: Performed By: #### F T4, VITAD, FETIBC, FERR #### [facility] [address] [place] [address] Dr. Cecilio Gale WBC NONE SEEN Normal NONE SEEN [facility] Comment on above: Performed By: #### F T4, VITAD, FETIBC, FERR #### [facility] [address] [place] [address] Dr. Cecilio Gale Physician Referralon 022 Physician Referral [id number] Normal [facility] ALKP ISOENZYMESon 07-10-2022 ALP [Catalytic activity/Vol] 159 U/L Critically high 44-121 [facility] Comment on above: Performed By: #### A LKPISO #### [facility] [address] [address] [address] Cecilio Gale Bone Fraction: 36 % Normal 14-68 [facility] Comment on above: Performed By: #### A LKPISO #### [facility] [address] [address] [address] Cecilio Gale Intestinal Frac.: 4 % Normal 0-18 [facility] Comment on above: Performed By: #### A LKPISO #### [facility] [address] [place] [address] Dr. Cecilio Gale Liver Fraction: 60 % Normal 18-85 [facility] Comment on above: Performed By: #### A LKPISO #### [facility] [address] [address] [address] Cecilio Gale VIT D 25-OH LABCORPon 2021 Vitamin D, 25-Hydroxy 50.4 ng/mL Normal 30.0-100.0 [facility] Comment on above: Result Comment: Millie min D deficiency has been defined by the [place] of Medicine and an Endocrine Society practice guideline as a level of serum 25-OH vitamin D less than 20 ng/mL (1,2). The Endocrine Society went on to further define vitamin D insufficiency as a level between 21 and 29 ng/mL (2). 1. IOM ([place] of Medicine). 2010. Dietary reference intakes for calcium and D. [place]: The National Academies Press. 2. Sujatha MF, Vaishali NC, Larisa AZAR, et al. Evaluation, treatment, and prevention of vitamin D deficiency: an Endocrine Society clinical practice guideline. JCEM. 2010; 96(7):1911-30. Performed By: #### F T4, VITAD, FETIBC, FERR #### [facility] [address] [address] [address] Cecilio Gale CBC AUTO DIFFon 07-08-2022 BASO # 0.0 103/ul Normal 0.0-0.1 [facility] Comment on above: Performed By: #### C BC #### [facility] [address] [place] [address] Dr. Cecilio Gale Basophils/100 WBC (Bld) 0.6 % Normal 0.2-2.0 [facility] Comment on above: Performed By: #### C BC #### [facility] [address] [place] [address] Dr. Cecilio Gale EO # 0.0 103/ul Normal 0.0-0.7 [facility] Comment on above: Performed By: #### C BC #### [facility] [address] [place] [address] Dr. Cecilio Gale Eosinophils/100 WBC (Bld) 0.0 % Critically low 0.9-7.0 [facility] Comment on above: Performed By: #### C BC #### [facility] [address] [place] [address] Dr. Cecilio Gale Erythrocyte distribution width (RBC) [Ratio] 11.8 % Normal 11.0-15.0 [facility] Comment on above: Performed By: #### C BC #### [facility] [address] [place] [address] Dr. Cecilio aGle Hematocrit (Bld) [Volume fraction] 40.2 % Normal 36.0-48.0 [facility] Comment on above: Performed By: #### C BC #### [facility] [address] [place] [address] Dr. Cecilio Gale Hemoglobin (Bld) [Mass/Vol] 14.5 g/dL Normal 12.0-16.0 [facility] Comment on above: Performed By: #### C BC #### [facility] [address] [place] [address] Dr. Cecilio Gale IG # 0.01 10e3/ul Normal 0.00-0.03 [facility] Comment on above: Performed By: #### C BC #### [facility] [address] [place] [address] Dr. Cecilio Gale IG % 0.2 % Normal 0.0-0.5 [facility] Comment on above: Performed By: #### C BC #### [facility] [address] [place] [address] Dr. Cecilio Gale LYMPH # 2.1 103/ul Normal 1.2-3.8 [facility] Comment on above: Performed By: #### C BC #### [facility] [address] [place] [address] Dr. Cecilio Gale Lymphocytes/100 WBC (Bld) 45.9 % Normal 20.5-60.0 [facility] Comment on above: Performed By: #### C BC #### [facility] [address] [place] [address] Dr. Cecilio Gale MANUAL DIFF REQ NO Normal [facility] Comment on above: Performed By: #### C BC #### [facility] [address] [place] [address] Dr. Cecilio Gale MCH (RBC) [Entitic mass] 33.0 pg Normal 26.7-34.0 [facility] Comment on above: Performed By: #### C BC #### [facility] [address] [place] [address] Dr. Cecilio Gale MCHC (RBC) [Mass/Vol] 36.1 g/dL Critically high 29.9-35.2 [facility] Comment on above: Performed By: #### C BC #### [facility] [address] [place] [address] Dr. Cecilio Gale MCV (RBC) [Entitic vol] 91.6 fL Normal 81.0-99.0 [facility] Comment on above: Performed By: #### C BC #### [facility] [address] [place] [address] Dr. Cecilio Gale MONO # 0.4 103/ul Normal 0.3-0.8 [facility] Comment on above: Performed By: #### C BC #### [facility] [facility] [address] [place] [address] Dr. Cecilio Gale Monocytes/100 WBC (Bld) 8.9 % Normal 1.7-12.0 [facility] Comment on above: Performed By: #### C BC #### [facility] [address] [place] [address] Dr. Cecilio Gale NEUT # 2.1 103/ul Normal 1.4-6.5 [facility] Comment on above: Performed By: #### C BC #### [facility] [address] [place] [address] Dr. Cecilio Gale Neutrophils/100 WBC (Bld) 44.4 % Normal 43.0-75.0 [facility] Comment on above: Performed By: #### C BC #### [facility] [address] [place] [address] Dr. Cecilio Gale Platelet mean volume (Bld) [Entitic vol] 8.4 fL Critically low 9.5-13.5 [facility] Comment on above: Performed By: #### C BC #### [facility] [address] [place] [address] Dr. Cecilio Gale PLT 349 103/ul Normal 150-450 [facility] Comment on above: Performed By: #### C BC #### [facility] [address] [place] [address] Dr. Cecilio Gale RBC 4.39 106/ul Normal 4.20-5.40 [facility] Comment on above: Performed By: #### C BC #### [facility] [address] [place] [address] Dr. Cecilio Gale WBC 4.6 103/ul Normal 4.0-11.0 [facility] Comment on above: Performed By: #### C BC #### [facility] [address] [place] [address] Dr. Cecilio Gale CULTURE URINEon 07-08-2022 CULTURE URINE Culture Observations : MODERATE GROWTH OF MIXED GENITAL CAMERON. NO POTENTIAL PATHOGENS SEEN. Normal [facility] Comment on above: Performed By: #### F T4, VITAD, FETIBC, FERR #### [facility] [address] [place] [address] Dr. Cecilio Gale FERRITINon 07-08-2022 Ferritin [Mass/Vol] 182.0 ng/mL Normal 8.0-252.0 [facility] Comment on above: Performed By: #### F T4, VITAD, FETIBC, FERR #### [facility] [address] [place] [address] Dr. Cecilio Gale FREE T3on 07-08-2022 FREE T3 2.02 pg/mlL Critically low 2.18-3.98 [facility] Comment on above: Performed By: #### F T4, VITAD, FETIBC, FERR #### [facility] [address] [place] [address] Dr. Cecilio Gale FREE T4on 07-08-2022 Free T4 [Mass/Vol] 0.98 ng/dL Normal 0.76-1.46 [facility] Comment on above: Performed By: #### F T4, VITAD, FETIBC, FERR #### [facility] [address] [place] [address] Dr. Cecilio Gale GLYCOHEMOGLOBIN A1Con 2021 ADA RECOMMENDATION SEE BELOW Normal [facility] Comment on above: Result Comment: ADA RECOMMENDED LIMIT 4.0 - 6.0 ADA THERAPEUTIC TARGET < 7.0 ACTION SUGGESTED > 7.0 Performed By: #### A 1C #### [facility] [address] [place] [address] Dr. Cecilio Gale Glucose [Mass/Vol] 105 mg/dL Normal [facility] Comment on above: Performed By: #### A 1C #### [facility] [address] [place] [address] Dr. Cecilio Gale HbA1c (Bld) [Mass fraction] 5.3 % Normal 4.5-6.2 [facility] Comment on above: Performed By: #### A 1C #### [facility] [address] [place] [address] Dr. Cecilio Gale IRON AND TIBCon 07-08-2022 % SATURATION 79.9 % Normal [facility] Comment on above: Performed By: #### F T4, VITAD, FETIBC, FERR #### [facility] [address] [address] [address] Cecilio Gale Iron [Mass/Vol] 219.0 ug/dL Critically high 50.0-170.0 [facility] Comment on above: Performed By: #### F T4, VITAD, FETIBC, FERR #### [facility] [address] [address] [address] Cecilio Gale TIBC DIRECT 274.0 ug/dL Normal 250.0-450.0 [facility] Comment on above: Performed By: #### F T4, VITAD, FETIBC, FERR #### [facility] [address] [place] [address] Dr. Cecilio Gale LIPID PROFILEon 07-08-2022 CHOL-HDL RATIO NORM SEE BELOW Normal [facility] Comment on above: Result Comment: 3.3 - 4.4 LOW RISK 4.4 - 7.1 AVERAGE RISK 7.1 - 11.0 MODERATE RISK >11.0 HIGH RISK Performed By: #### F T4, VITAD, FETIBC, FERR #### [facility] [address] [place] [address] Dr. Cecilio Gale Cholesterol [Mass/Vol] 215 mg/dL Critically high <=200 [facility] Comment on above: Performed By: #### F T4, VITAD, FETIBC, FERR #### [facility] [address] [address] [address] Cecilio Gale Cholesterol in HDL [Mass/Vol] 98 mg/dL Critically high 40-60 [facility] Comment on above: Performed By: #### F T4, VITAD, FETIBC, FERR #### [facility] [address] [address] [address] Cecilio Gale Cholesterol in LDL [Mass/Vol] 105.4 mg/dL Normal [facility] Comment on above: Performed By: #### F T4, VITAD, FETIBC, FERR #### [facility] [address] [place] [address] Dr. Cecilio Gale Cholesterol.total/C holesterol in HDL [Mass ratio] 2.2 {ratio} Normal [facility] Comment on above: Performed By: #### F T4, VITAD, FETIBC, FERR #### [facility] [address] [place] [address] Dr. Cecilio Gale HDL NORMAL > or = 60 mg/dl - LO W CARDIOVASCULAR RISK <40 mg/dl - HIGH CARDIOVASCULAR RISK Normal [facility] Comment on above: Performed By: #### F T4, VITAD, FETIBC, FERR #### [facility] [address] [place] [address] Dr. Cecilio Gale LDL CALC NORMAL SEE BELOW Normal [facility] Comment on above: Result Comment: <100 mg/dl OPTIMAL 100 - 129 mg/dl NEAR OR ABOVE OPTIMAL 130 - 159 mg/dl BORDERLINE HIGH 160 - 189 mg/dl HIGH >190 mg/dl VERY HIGH Performed By: #### F T4, VITAD, FETIBC, FERR #### [facility] [address] [place] [address] Dr. Cecilio Gale Triglyceride [Mass/Vol] 58 mg/dL Normal <=150 [facility] Comment on above: Performed By: #### F T4, VITAD, FETIBC, FERR #### [facility] [address] [place] [address] Dr. Cecilio Gale VLDL CALC 11.6 mg/dL Normal [facility] Comment on above: Performed By: #### F T4, VITAD, FETIBC, FERR #### [facility] [address] [place] [address] Dr. Cecilio Gale PROF 14(COMP METB)on 022 Albumin [Mass/Vol] 4.0 g/dL Normal 3.4-5.0 [facility] Comment on above: Performed By: #### F T4, VITAD, FETIBC, FERR #### [facility] [address] [place] [address] Dr. Cecilio Gale Albumin/Globulin [Mass ratio] 1.0 {ratio} Normal [facility] Comment on above: Performed By: #### F T4, VITAD, FETIBC, FERR #### [facility] [address] [place] [address] Dr. Cecilio Gale ALP [Catalytic activity/Vol] 160 U/L Critically high 46-116 [facility] Comment on above: Performed By: #### F T4, VITAD, FETIBC, FERR #### [facility] [address] [place] [address] Dr. Cecilio Gale ALT [Catalytic activity/Vol] 26 U/L Normal 14-59 [facility] Comment on above: Performed By: #### F T4, VITAD, FETIBC, FERR #### [facility] [address] [place] [address] Dr. Cecilio Gale Anion gap [Moles/Vol] 14.1 mmol/L Normal [facility] Comment on above: Performed By: #### F T4, VITAD, FETIBC, FERR #### [facility] [address] [place] [address] Dr. Cecilio Gale AST [Catalytic activity/Vol] 19 U/L Normal 15-37 [facility] Comment on above: Performed By: #### F T4, VITAD, FETIBC, FERR #### [facility] [address] [place] [address] Dr. Cecilio Gale Bilirubin [Mass/Vol] 0.5 mg/dL Normal 0.2-1.0 [facility] Comment on above: Performed By: #### F T4, VITAD, FETIBC, FERR #### [facility] [address] [place] [address] Dr. Cecilio Gale Calcium [Mass/Vol] 8.9 mg/dL Normal 8.5-10.1 [facility] Comment on above: Performed By: #### F T4, VITAD, FETIBC, FERR #### [facility] [address] [place] [address] Dr. Cecilio Gale Chloride [Moles/Vol] 93 mmol/L Critically low 98-107 [facility] Comment on above: Performed By: #### F T4, VITAD, FETIBC, FERR #### [facility] [address] [place] [address] Dr. Cecilio Gale CO2 [Moles/Vol] 25.9 mmol/L Normal 21.0-32.0 [facility] Comment on above: Performed By: #### F T4, VITAD, FETIBC, FERR #### [facility] [address] [place] [address] Dr. Cecilio Gale Creatinine [Mass/Vol] 0.68 mg/dL Normal 0.55-1.02 [facility] Comment on above: Performed By: #### F T4, VITAD, FETIBC, FERR #### [facility] [address] [place] [address] Dr. Cecilio Gale EGFR-AF HONDURAN >60 Normal >=60 [facility] Comment on above: Performed By: #### F T4, VITAD, FETIBC, FERR #### [facility] [address] [place] [address] Dr. Cecilio Gale EGFR-NON AF HONDURAN >60 Normal >=60 [facility] Comment on above: Performed By: #### F T4, VITAD, FETIBC, FERR #### [facility] [address] [place] [address] Dr. Cecilio Gale Globulin (S) [Mass/Vol] 3.9 g/dL Normal [facility] Comment on above: Performed By: #### F T4, VITAD, FETIBC, FERR #### [facility] [address] [place] [address] Dr. Cecilio Gale Glucose [Mass/Vol] 108 mg/dL Critically high 74-106 [facility] Comment on above: Performed By: #### F T4, VITAD, FETIBC, FERR #### [facility] [address] [place] [address] Dr. Cecilio Gale Potassium [Moles/Vol] 4.0 mmol/L Normal 3.5-5.1 [facility] Comment on above: Performed By: #### F T4, VITAD, FETIBC, FERR #### [facility] [address] [place] [address] Dr. Cecilio Gale Protein [Mass/Vol] 7.9 g/dL Normal 6.4-8.2 [facility] Comment on above: Performed By: #### F T4, VITAD, FETIBC, FERR #### [facility] [address] [place] [address] Dr. Cecilio Gale Sodium [Moles/Vol] 129 mmol/L Critically low 136-145 [facility] Comment on above: Performed By: #### F T4, VITAD, FETIBC, FERR #### [facility] [address] [place] [address] Dr. Cecilio Gale Urea nitrogen [Mass/Vol] 6.0 mg/dL Critically low 7.0-18.0 [facility] Comment on above: Performed By: #### F T4, VITAD, FETIBC, FERR #### [facility] [address] [place] [address] Dr. Cecilio Gale Urea nitrogen/Creatinine [Mass ratio] 8.8 mg/mg Normal [facility] Comment on above: Performed By: #### F T4, VITAD, FETIBC, FERR #### [facility] [address] [place] [address] Dr. Cecilio Gale TSHon 07-08-2022 TSH 0.963 uIU/mL Normal 0.358-3.740 [facility] Comment on above: Performed By: #### F T4, VITAD, FETIBC, FERR #### [facility] [address] [place] [address] Dr. Cecilio Gale UA RANDOMon 07-08-2022 Bilirubin Ql (U) Negative Normal NEGATIVE [facility] Comment on above: Performed By: #### F T4, VITAD, FETIBC, FERR #### [facility] [address] [place] [address] Dr. Cecilio Gale Clarity (U) CLEAR Normal CLEAR [facility] Comment on above: Performed By: #### F T4, VITAD, FETIBC, FERR #### [facility] [address] [place] [address] Dr. Cecilio Gale Color (U) LT. YELLOW Normal YELLOW [facility] Comment on above: Performed By: #### F T4, VITAD, FETIBC, FERR #### [facility] [address] [place] [address] Dr. Cecilio Gale Glucose Ql (U) Negative Normal NEGATIVE [facility] Comment on above: Performed By: #### F T4, VITAD, FETIBC, FERR #### [facility] [address] [place] [address] Dr. Cecilio Gale Hemoglobin Ql (U) TRACE-LYSED Abnormal NEGATIVE [facility] Comment on above: Performed By: #### F T4, VITAD, FETIBC, FERR #### [facility] [address] [place] [address] Dr. Cecilio Gale Ketones Ql (U) Negative Normal NEGATIVE [facility] Comment on above: Performed By: #### F T4, VITAD, FETIBC, FERR #### [facility] [address] [place] [address] Dr. Cecilio Gale LEUKOCYTES Negative Normal NEGATIVE [facility] Comment on above: Performed By: #### F T4, VITAD, FETIBC, FERR #### [facility] [address] [place] [address] Dr. Cecilio Gale Nitrite Ql (U) Negative Normal NEGATIVE [facility] Comment on above: Performed By: #### F T4, VITAD, FETIBC, FERR #### [facility] [address] [place] [address] Dr. Cecilio Gale pH (U) 7.5 [pH] Normal 5-9 [facility] Comment on above: Performed By: #### F T4, VITAD, FETIBC, FERR #### [facility] [address] [place] [address] Dr. Cecilio Gale SPEC GRAVITY <=1.005 Abnormal 1.005-<=1.0 25 [facility] Comment on above: Performed By: #### F T4, VITAD, FETIBC, FERR #### [facility] [address] [place] [address] Dr. Cecilio Gale UA PROTEIN Negative Normal NEGATIVE/ TRACE [facility] Comment on above: Performed By: #### F T4, VITAD, FETIBC, FERR #### [facility] [address] [place] [address] Dr. Cecilio Gale Urobilinogen Qn (U) 0.2 {Anita'U}/dL Normal 0.2 - 1. 0 [facility] Comment on above: Performed By: #### F T4, ROSCOE, ELTON, FERR #### [facility] [address] [address] [address] Cecilio Gale Vital Signs Date Time Vital Sign Value Performing Clinician Facility 07-26-2024 13:38-0400 Body height 162.56 cm [facility] 07-26-2024 13:38-0400 Body mass index (BMI) [Ratio] 34.1 kg/m2 [facility] 07-26-2024 13:38-0400 Body temperature 97.3 [degF] [facility] 07-26-2024 13:38-0400 Body weight 90.26 kg [facility] 07-26-2024 13:38-0400 Diastolic blood pressure 82 mm[Hg] [facility] 07-26-2024 13:38-0400 Heart rate 76 /min [facility] 07-26-2024 13:38-0400 Respiratory rate 18 /min [facility] 07-26-2024 13:38-0400 SaO2% (BldA) [Mass fraction] 98 % [facility] 07-26-2024 13:38-0400 Systolic blood pressure 124 mm[Hg] [facility] 06-07-2024 13:13-0400 Body height 162.56 cm [facility] 06-07-2024 13:13-0400 Body mass index (BMI) [Ratio] 35 kg/m2 [facility] 06-07-2024 13:13-0400 Body weight 92.53 kg [facility] 06-07-2024 13:13-0400 Diastolic blood pressure 82 mm[Hg] [facility] 06-07-2024 13:13-0400 Heart rate 94 /min [facility] 06-07-2024 13:13-0400 SaO2% (BldA) [Mass fraction] 98 % [facility] 06-07-2024 13:13-0400 Systolic blood pressure 127 mm[Hg] [facility] 05-02-2024 11:10-0400 Body height 165.1 cm [facility] 05-02-2024 11:10-0400 Body mass index (BMI) [Ratio] 33.8 kg/m2 [facility] 05-02-2024 11:10-0400 Body weight 92.22 kg [facility] 05-02-2024 11:10-0400 Diastolic blood pressure 80 mm[Hg] [facility] 05-02-2024 11:10-0400 Respiratory rate 18 /min [facility] 05-02-2024 11:10-0400 Systolic blood pressure 112 mm[Hg] [facility] 10-27-2023 11:10-0500 Body height 165.1 cm Scotty Ruiz Other [facility] [employer] Other 10-27-2023 11:10-0500 Body mass index (BMI) [Ratio] 36.11 kg/m2 Scotty Ruiz Other [facility] [employer] Other 10-27-2023 11:10-0500 Body temperature 98.1 [degF] Scotty Ruiz Other [employer] Other 10-27-2023 11:10-0500 Body weight 98.43 kg Scotty Ruiz Other [employer] Other 10-27-2023 11:10-0500 Diastolic blood pressure 78 mm[Hg] Scotty Ruiz Other [employer] Other 10-27-2023 11:10-0500 Respiratory rate 18 /min Scotty Ruiz Other [employer] Other 10-27-2023 11:10-0500 SaO2% (BldA) [Mass fraction] 97 % Scotty Ruiz Other [employer] Other 10-27-2023 11:10-0500 Systolic blood pressure 120 mm[Hg] Scotty Ruiz Other [employer] Other 07-28-2023 09:50-0400 Body height 165.1 cm Scotty Ruiz Other [employer] Other 07-28-2023 09:50-0400 Body mass index (BMI) [Ratio] 39.1 kg/m2 Scotty Ruiz Other [employer] Other 07-28-2023 09:50-0400 Body weight 106.6 kg Scotty Ruiz Other [employer] Other 07-28-2023 09:50-0400 Diastolic blood pressure 78 mm[Hg] Scotty Ruiz Other [employer] Other 07-28-2023 09:50-0400 Respiratory rate 18 /min Scotty Ruiz Other [employer] Other 07-28-2023 09:50-0400 SaO2% (BldA) [Mass fraction] 98 % Scotty Ruiz Other [employer] Other 07-28-2023 09:50-0400 Systolic blood pressure 124 mm[Hg] Scotty Ruiz Other [employer] Other 06-02-2023 13:00-0400 Body height 165.1 cm Rajendra Angulo Other [employer] Other 06-02-2023 13:00-0400 Body mass index (BMI) [Ratio] 42.43 kg/m2 Rajendra Angulo Other [employer] Other 06-02-2023 13:00-0400 Body weight 115.67 kg Rajendra Salinasno Other [employer] Other 06-02-2023 13:00-0400 Diastolic blood pressure 78 mm[Hg] Roberthannah Landadano Other [employer] Other 06-02-2023 13:00-0400 SaO2% (BldA) [Mass fraction] 97 % Roberthannah Salinasno Other [employer] Other 06-02-2023 13:00-0400 Systolic blood pressure 119 mm[Hg] Roberthannah Landadano Other [employer] Other 01-21-2023 11:50-0400 Body height 165.1 cm Scotty Ruiz Other [employer] Other 01-21-2023 11:50-0400 Body mass index (BMI) [Ratio] 45.92 kg/m2 Scotty Ruiz Other [employer] Other 01-21-2023 11:50-0400 Body temperature 97.7 [degF] Scotty Ruiz Other [employer] Other 01-21-2023 11:50-0400 Body weight 125.19 kg Scotty Ruiz Other [employer] Other 01-21-2023 11:50-0400 Diastolic blood pressure 86 mm[Hg] Scotty Ruiz Other [employer] Other 01-21-2023 11:50-0400 Respiratory rate 18 /min Scotty Ruiz Other [employer] Other 01-21-2023 11:50-0400 SaO2% (BldA) [Mass fraction] 97 % Scotty Ruiz Other [facility] [employer] Other 01-21-2023 11:50-0400 Systolic blood pressure 128 mm[Hg] Scotty Brendanmono Other [employer] Other 08-04-2022 15:21-0400 Blood Pressure Location [facility] [place] 08-04-2022 15:21-0400 Diastolic blood pressure 80 mm[Hg] [facility] [place] 08-04-2022 15:21-0400 Heart rate 72 /min Kerry NILL [facility] [place] 08-04-2022 15:21-0400 Respiratory rate 16 /min Kerry NILL [facility] [place] 08-04-2022 15:21-0400 Systolic blood pressure 118 mm[Hg] Kerry NILL [facility] [place] 07-29-2022 11:12-0400 Body height 165.1 cm Ricci Garcia MD Work Phone: [facility] 07-29-2022 11:12-0400 Body temperature 97.11 [degF] Ricci Garcia MD Work Phone: [facility] 07-29-2022 11:12-0400 Body weight 122.97 kg Ricci Garcia MD Work Phone: [facility] 07-29-2022 11:12-0400 Diastolic blood pressure 89 mm[Hg] Ricci Garcia MD Work Phone: [facility] 07-29-2022 11:12-0400 Heart rate 83 /min Ricci Garcia MD Work Phone: [facility] 07-29-2022 11:12-0400 Respiratory rate 16 /min Ricci Garcia MD Work Phone: [facility] 07-29-2022 11:12-0400 SaO2% (BldA) [Mass fraction] 98 % Ricci Garcia MD Work Phone: [facility] 07-29-2022 11:12-0400 Systolic blood pressure 152 mm[Hg] Ricci Garcia MD Work Phone: [facility] 07-14-2022 14:20-0400 Body height 165.1 cm Scotty Ruiz Other [employer] Other 07-14-2022 14:20-0400 Body mass index (BMI) [Ratio] 45.26 kg/m2 Scotty Ruiz Other [employer] Other 07-14-2022 14:20-0400 Body temperature 97.6 [degF] Scotty Ruiz Other [employer] Other 07-14-2022 14:20-0400 Body weight 123.38 kg Scotty Ruiz Other [employer] Other 07-14-2022 14:20-0400 Diastolic blood pressure 82 mm[Hg] Scotty Ruiz Other [employer] Other 07-14-2022 14:20-0400 SaO2% (BldA) [Mass fraction] 97 % Scotty Ruiz Other [employer] Other 07-14-2022 14:20-0400 Systolic blood pressure 132 mm[Hg] Scotty Ruiz Other [employer] Other 06-03-2022 14:00-0400 Body height 165.1 cm Rajendra Anuglo Other [employer] Other 06-03-2022 14:00-0400 Body mass index (BMI) [Ratio] 45.26 kg/m2 Rajendra Salinasno Other [employer] Other 06-03-2022 14:00-0400 Body temperature 97.3 [degF] Rajendra Salinasno Other [employer] Other 06-03-2022 14:00-0400 Body weight 123.38 kg Rajendra Salinasno Other [employer] Other 06-03-2022 14:00-0400 Diastolic blood pressure 75 mm[Hg] Rajendra Salinasno Other [employer] Other 06-03-2022 14:00-0400 SaO2% (BldA) [Mass fraction] 10 % Rajendra Salinasno Other [employer] Other 06-03-2022 14:00-0400 Systolic blood pressure 113 mm[Hg] Rajendra Salinasno Other [employer] Other Encounters Encounter Date Encounter Type Care Provider Facility Start: 07-26-2024 End: 07-26-2024 ambulatory [facility] Work Phone: Start: 07-26-2024 End: 07-26-2024 Patient encounter procedure [facility] Work Phone: Start: 07-14-2024 Non-patient / Non-visit [facility] Work Phone: Start: 06-29-2024 Non-patient / Non-visit [facility] Work Phone: Start: 06-19-2024 Non-patient / Non-visit [facility] Work Phone: Start: 06-07-2024 End: 06-07-2024 ambulatory [facility] Work Phone: Start: 06-07-2024 End: 06-07-2024 Patient encounter procedure [facility] Physician [facility] Work Phone: Start: 05-02-2024 End: 05-02-2024 ambulatory [facility] Work Phone: Start: 05-02-2024 End: 05-02-2024 Patient encounter procedure [facility] Physician [facility] [place] Work Phone: Start: 04-26-2024 Non-patient / Non-visit [facility] Work Phone: Start: 04-20-2024 End: 04-20-2024 ambulatory FERMIN ZAMORAFlip Not Available Start: 12-13-2023 End: 12-13-2023 Phys/qhp telephone evaluation 5-10 min Trevor Wheeler DO Work Phone: [facility] Comment on above: Encounter to discuss test results Start: 11-23-2023 End: 11-23-2023 ambulatory TREVOR WHEEELR Not Available Start: 10-27-2023 End: 10-27-2023 ambulatory Scotty Ruiz Other [employer] Other Start: 10-27-2023 Office outpatient vi sit [address] [facility] Start: 08-04-2023 End: 08-04-2023 ambulatory Scotty Ruiz Other [employer] Other Start: 08-04-2023 Telephone encounter Scotty Ruiz [facility] [place] Start: 07-28-2023 End: 07-28-2023 ambulatory Scotty Ruiz Other [employer] Other Start: 07-28-2023 Office outpatient vi sit 25 minutes Scotty Ruiz [facility] [place] Start: 07-22-2023 End: 07-22-2023 ambulatory Scotty Ruiz Other [employer] Other Start: 07-22-2023 Telephone encounter Scotty Ruiz [facility] [place] Start: 06-02-2023 Office outpatient vi sit 10 minutes Rajendra Angulo [facility] Start: 06-02-2023 End: 06-02-2023 ambulatory DO Scotty Ruiz Work Phone: [employer] Other Start: 06-02-2023 End: 06-02-2023 Patient encounter procedure DO Scotty Ruiz Work Phone: [facility] Work Phone: Start: 02-09-2023 End: 02-09-2023 ambulatory Scotty Ruiz Other [employer] Other Start: 02-09-2023 Telephone encounter Scotty Ruiz [facility] [place] Start: 01-21-2023 End: 01-21-2023 ambulatory Scotty Ruiz Other [employer] Other Start: 01-21-2023 Encounter for other preprocedural examination Scotty Ruiz [facility] [place] Start: 01-21-2023 Office outpatient vi sit 25 minutes Scotty Ruiz [facility] [place] Start: 01-11-2023 End: 01-12-[address] SCOTTY RUIZ Facility:[facility]1 Start: 11-30-2022 End: 11-30-2022 ambulatory Scotty Ruiz Other [employer] Other Start: 11-30-2022 Telephone encounter Scotty Ruiz [facility] [place] Start: 10-08-2022 End: 10-09-[address] DOCTOR RANDALL Facility:[facility]1 Start: 09-22-2022 End: 09-23-2022 ambulatory Kerry JONES Facility: [place] Start: 09-22-2022 End: 09-22-2022 Patient encounter procedure Kerry JONES General Surgery [facility] [place] Start: 09-17-2022 ambulatory Scotty Ruiz Faci lity:[facility] Start: 09-09-2022 End: 09-10-2022 ambulatory Kerry JONES Facility::[id number] Start: 2022 Telephone encounter Janie Jose Rafaelgetachew [facility] Start: 2022 End: 09-08-[address] KERRY JONES . [employer] Other Start: 08-21-2022 End: 08-22-2022 ambulatory VINCENT AGUILAR Facility:[facility] Start: 08-21-2022 End: 08-21-2022 ambulatory Chair Pita Tejada Work Phone: Hematology/Oncology Comment on above: Hereditary hemochrom atosis (HCC) (Primary Dx) Start: 08-12-2022 End: 08-13-2022 [facility] Ricci Garcia MD Work Phone: Hematology/Oncology Comment [...] Start: 07-28-2022 End: 07-28-2022 ambulatory Mahendra Romo Facility:[facility] Start: 07-28-2022 End: 07-28-2022 Patient encounter procedure DO Scotty Ruiz Work Phone: [facility] Start: 07-21-2022 Telephone encounter Scotty Ruiz [facility] Start: 07-21-2022 End: 07-22-[address] SCOTTY RUIZ [facility] Other Start: 07-14-2022 End: 07-14-2022 ambulatory Scotty Ruiz [facility] Other Start: 07-14-2022 Office outpatient vi sit 25 minutes Scotty Ruiz [facility] Start: 07-08-2022 End: 07-09-[address] SCOTTY RUIZ Facility: Start: 07-07-2022 Telephone encounter Scotty Ruiz [facility] Start: 07-07-2022 End: 07-09-2022 ambulatory DO INTERIANO [facility] Other Start: 06-03-2022 End: 06-03-2022 ambulatory Rajendra Angulo Other [facility] Other Start: 06-03-2022 Office outpatient vi sit 10 minutes Rajendra Angulo [facility] Start: 06-03-2022 End: 06-03-2022 Patient encounter procedure DO Scotty Ruiz Work Phone: [facility] Start: 09-01-2021 Telephone encounter Scotty Ruiz [facility] Procedures Date Procedure Procedure Detail Performing [...] Screening for malign ant neoplasm of colon [facility] Start: 08-21-2025 DIABETES SCREEN DIABETES SCREEN [facility] Start: 07-29-2025 DIABETES SCREEN DIABETES SCREEN [facility] Start: 11-28-2024 End: 11-28-2024 Patient encounter procedure 11/28/2024 1:00 PM EST Office Visit [facility] OB [address] [place] [address] Trevor Wheeler, DO [address] Jose Bill, [facility] Start: 07-29-2022 End: 09-28-2022 HFE gene targeted mutation analysis in Blood or Tissue by Molecular genetics method [facility] Work Phone: Comment on above: Expected: 07/29/2022 , Expires: 09/28/2022 Start: 07-09-2022 Influenza vaccination INFLUENZA (#1) [facility] Start: 04-14-2022 COVID-19 VACCINE (5 - Booster for Pfizer series) COVID-19 VACCINE (5 - Booster for Pfizer series) [facility] Start: 11-08-2021 DEPRESSION ASSESSMENT DEPRESSION ASS ESSMENT [facility] Start: 2011 COLOGUARD (FIT-DNA) COLOGUARD (FIT-D NA) [facility] Start: 2011 Colonoscopy COLONOSCOPY [facility] Start: 2011 COLORECTAL CANCER SCREENING COLORECTAL CANCER SCREENING [facility] Start: [address] COLONOGRAPHY [facility] Start: 2011 FECAL OCCULT BLOOD FECAL OCCULT BLOO D [facility] Start: 2011 LIPID SCREEN LIPID SCREEN [facility] Start: 2011 SIGMOIDOSCOPY SIGMOIDOSCOPY [facility] Start: 2006 Mammography MAMMOGRAM [facility] Start: 2006 Screening for malign ant neoplasm of breast Mammogram [facility] Start: 1996 HPV TESTING HPV TESTING [facility] Start: 1996 Screening for malign ant neoplasm of cervix [facility] Start: 1987 PAP TESTING PAP TESTING [facility] Start: 1987 Screening for malign ant neoplasm of cervix Pap Smear [facility] Start: 1985 Urine microalbumin profile DTAP,TDAP,TD (1 - Tdap) [facility] Start: 1984 HEPATITIS C SCREENING HEPATITIS C SC MARTIN [facility] Start: 1984 HIV SCREENING HIV SCREENING [facility] Start: 1978 Adult depression screening assessment DEPRESSION SCREENING [facility] Start: 1966 HEPATITIS B (1 of 3 - 3-dose series) HEPATITIS B (1 of 3 - 3-dose series) [facility] Start: 1966 Screening for malign ant neoplasm of colon [facility] Bacteria identified in Urine by Culture [facility] Calcium.ionized [Mass/volume] in Serum or Plasma by Ion-selective membrane electrode (ISE) [facility] End: 08-12-2023 CBC W Auto Differential panel - Blood CBC + DIFF Lab Routine 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) Every 3 months for 4 Occurrences starting 08/12/2022 until 08/12/2023 [facility] Work Phone: Comment on above: Every 3 months for 4 Occurrences starting 08/12/2022 until 08/12/2023 End: 08-12-2023 Comprehensive metabolic 2000 panel - Serum or Plasma COMP METABOLIC PANEL Lab Routine 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) Every 3 months for 4 Occurrences starting 08/12/2022 until 08/12/2023 [facility] Work Phone: Comment on above: Every 3 months for 4 Occurrences starting 08/12/2022 until 08/12/2023 Comprehensive metabo lic 2000 panel - Serum or Plasma [facility] End: 08-12-2023 Ferritin [Mass/volume] in Serum or Plasma FERRITIN BLD Lab Routine 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) Every 3 months for 4 Occurrences starting 08/12/2022 until 08/12/2023 [facility] Work Phone: Comment on above: Every 3 months for 4 Occurrences starting 08/12/2022 until 08/12/2023 End: 08-12-2023 Iron and Iron binding capacity panel - Serum or Plasma IRON + TIBC Lab Routine 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) Every 3 months for 4 Occurrences starting 08/12/2022 until 08/12/2023 [facility] Work Phone: Comment on above: Every 3 months for 4 Occurrences starting 08/12/2022 until 08/12/2023 [facility] Immunizations Immunization Date Immunization Notes Care Provider Fa cility 08-18-2023 COVID-19 Vaccine Moderna - Documentation Purposes Only Scotty Ruiz Other [facility] 08-18-2023 Influenza, injectabl e, [place]in [place] Pos Canine Kidney, preservative free, quadrivalent [facility] 08-18-2023 Flu Shot - Documentation Purposes Only Scotty Ruiz Other [facility] 10-15-2022 COVID-19 mRNA Bivale nt Booster (Pfizer) [facility] 10-15-2022 influenza, injectabl e, quadrivalent, preservative free [facility] 10-15-2022 influenza, seasonal, injectable Scotty Ruiz Other [facility] 02-17-2022 COVID-19 Vaccine Moderna - Documentation Purposes Only Rajendra Angulo Other [facility] 10-11-2021 COVID-19 Vaccine Pfizer - Documentation Purposes Only Rajendra Angulo Other [facility] 08-05-2021 influenza, seasonal, injectable Scotty Ruiz Other [facility] 08-05-2021 influenza, injectabl e, quadrivalent, preservative free Ricci Garcia MD Work Phone: [facility] 02-07-2021 COVID-19 Vaccine Pfizer - Documentation Purposes Only Scotty Ruiz Other [facility] Comment on above: Reason for Medicatio n: Prophylaxis 01-17-2021 COVID-19 Vaccine Pfizer - Documentation Purposes Only Scotty Ruiz Other [facility] Comment on above: Reason for Medicatio n: Prophylaxis 10-04-2020 zoster vaccine recombinant Scotty Ruiz Other [facility] 08-05-2020 zoster vaccine recombinant Scotty Ruiz Other [facility] 08-05-2020 influenza, seasonal, injectable Scotty Ruiz Other [facility] 08-05-2020 influenza, injectabl e, quadrivalent, preservative free Ricci Garcia MD Work Phone: [facility] 10-17-2019 influenza, seasonal, injectable Scotty Ruiz Other [facility] 10-17-2019 influenza, injectabl e, quadrivalent, contains preservative Ricci Garcia MD Work Phone: [facility] 07-23-2018 influenza, injectabl e, quadrivalent, preservative free Ricci Garcia MD Work Phone: [facility] 07-23-2018 influenza, seasonal, injectable Scotty Ruiz Other [facility] NEGATED: Highlighted row has not occurred!08-04-2022 influenza virus vaccine, unspecified formulation Kerry JONES [facility] [place] Payers Date Payer Category Payer Self-pay [id number] 2019 Medicare [id number] 1966 Unknown [id number] 2.16.8 40.1.292611.3.579.2.727 1966 Unknown [id number] 2.16.8 40.1.382205.3.579.2.727 1966 Unknown [id number] 2.16.8 40.1.058506.3.579.2.727 1966 Unknown [id number] 2.16.8 40.1.265754.3.579.2.727 1966 Unknown [id number] 2.16.84 0.1.855173.3.579.2.593 1966 Unknown [id number] 2.16.84 0.1.283622.3.579.2.593 1966 Unknown [id number] 2.16.84 0.1.087925.3.579.2.593 1966 Unknown [id number] 2.16.84 0.1.613778.3.579.2.593 1966 Unknown [id number] 2.16.84 0.1.019338.3.579.2.593 1966 Unknown [id number] 2.16.84 0.1.312274.3.579.2.593 1966 Unknown [id number] 2.16.84 0.1.173781.3.579.2.593 1966 Unknown [id number] 2.16.84 0.1.028443.3.579.2.1259 1966 Unknown [id number] 2.16.84 0.1.922151.3.579.2.1259 1959 Medicare [id number] 2.16. 840.1.935323.19 Unknown O [id number] Unknown Regular Insurance [id number] Unknown [employer] [id number] Unknown [id number] 2.16.8 40.1.161448.3.579.2.531 Unknown [id number] 2.16.8 40.1.767475.3.579.2.531 Unknown [id number] 2.16.8 40.1.058364.3.579.2.531 Unknown HCAP/HFA/FAP Active [id number] Social History Date Type Detail Facility Unknown if ever smoked [facility] Other Start: 11-02-2023 Sex Assigned At [facility] Other Start: 1965 Sex Assigned At Female [facility] Start: 07-23-2022 End: 05-02-2024 Tobacco smoking status NHIS Never smoked tobacco [facility] History of tobacco use Passive smoker [facility] Start: 07-23-2022 Tobacco use and exposure Smokeless tobacco non-user [facility] Start: 07-29-2022 Alcohol intake Current non-drinker of alcohol (finding) [facility] Start: 1965 Sex Assigned At Not on file [facility] Start: 07-19-2022 End: 08-21-2022 Exposure to SARS-CoV-2 (event) Not sure [facility] Tobacco smoking status Never [facility] [place] Start: 11-23-2023 Alcohol intake Lifetime non-drinker (finding) [facility] Start: 11-02-2023 History of Social function [facility] Start: 11-02-2023 Alcohol Comment caffeine: 2-3 cups per day coffee, soda [facility] Start: 11-16-2023 Gender identity Identifies as female gender (finding) [facility] Start: 11-16-2023 Sexual orientation Heterosexual (finding) [facility] Functional Status Date Assessment Result Facility 08-04-2022 Functional Status N/A [facility] Clinical Notes 09-01-2021 to 05-02-2024 Note Date & Type Note Facility 05-02-2024 Evaluation note Authored May 02, 2024 12:5 3pm The above note written by __ _Jesusita Elliott____ acting as human recorder, note dictated by Dr. Martino .I performed the above HPI, ROS, and Examination. I formulated and dictated the treatment plan and was present for entire encounter. Scotty Ruiz D.O. [facility] Work Phone: 1(974) 396-188202-05-2024 History of Present illness Narrative* Trevor LiamDO miguel - 12/13/2023 8:00 AM EST Reason for Appointment: Patient ID: Layton Newton is a 58 y.o. female who presents for Results Patient presents today via telephone call for a telehealth appointment. Patients Phone #: [phone] (mobile) Current Medications: has a current medication [...] of: Trevor Wheeler DO documented in this encounterEll[facility] Cancer [id number] Evaluation note* Encounter Date Diagnosis Assessment Notes [...] Hyperglycemia (ICD-1 0 - R73.9) Oct, Other shelter (current) drug therapy (ICD-10 - Z79.899) Oct, [...] - E87.1) Her sodium level was 131. [employer] Other 09-20-2023 Evaluation note* Encounter Date Diagnosis [...] is normal at 5.4. 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 [facility] Other 07-26-2023 Evaluation note* Encounter Date Diagnosis Assessment Notes Treatment Notes Treatment Clinical Notes May, LORENA (obstructive sleep apnea) (ICD-10 - G47.33) [facility] Other 03-16-2023 Evaluation note* Encounter Date Diagnosis [...] 121. Ferritin was 132.0. 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 She is seeing Dr. Collins in [place] in an attempt to have bariatric weight [...] when she had weight loss surgery done. [employer] Other 11-02-2022 NoteOPERATIVE NOTE OPERATION DATE: 09/09/2022 [...] in good condition. CC: Scotty Ruiz D.O.[id number] NoteHNO ID: [id number] Author: Olesya Rodriguez RN Service: ? Author Type: Registered Nurse Type: Progress Notes Filed: 08/21/2022 4:39 PM Note Text: Pt was checked in for appointment. HGB of 14.3 qualified her for a phlebotomy. However, pt left the building after getting her blood work drawn. PSS called and LVM for pt to reschedule.[facility] 08-21-2022 History of Present illness Narrative* Olesya Rodriguez RN - 08/21/2022 3:24 PM EDT Pt was checked in for appointment. HGB of 14.3 qualified her for a phlebotomy. However, pt left thebuilding after getting her blood work drawn. PSS called and LVM for pt to reschedule. documented in this [facility]10-05-2022 Instructions* Patient Instructions* Ricci Garcia MD - 08/12/2022 8:43 PM EDT Arrange for phlebotomy 1 unit for Hgb > 13 next week Labs in 3 months RTC 1 week after labs and schedule for possible phlebotomy after clinician. documented in [facility]22 NoteHNO ID: [id number] Author: Ricci Garcia MD Service: ? Author Type: Physician Type: Progress Notes Filed: 08/12/2022 8:45 PM Note Text: NAME: Mikey Newton NO.: [id number] DATE OF SERVICE: August 12, 2022 Some [...] 07/29/2022 0.4 AST (U/L (more content not included)...[facility]10-05-2022 History of Present illness Narrative* Ricci Garcia MD - 08/12/2022 5:17 PM EDT Images from the original note were not included. NAME: Mikey Newton CLINIC NO.: [id number] DATE OF SERVICE: August 12, 2022 Some [...] CPE Hematology and Oncology Services Provided at: [place], [place] CC: Scotty Ruiz [address] [place] [address] Scotty Ruiz DO [address] [place] [address] documented in this encounterMer[facility]09-27-2022 NoteChief Complaint consultation for screening colonoscopy [employer] [employer] Staff 56 year old female presents on [...] 50,000 intl units (1.25 mg) oral capsule, 94268 International_Unit= 1 cap(s), Oral, qWeek Allergies Depakote [...] SARS-CoV-2 (COVID-19) mRNA BNT-162b2 vax 01/17/2021 Given ProphylaxisSycamore Medical CenterComment on above:Result Comment: Electronically Signed By: MOMO CHAND, Kerry Barfield\Date and Time Signed: 08/04/22 15:39 [id number] Note HNO ID: [id number] Author: Ricci Garcia MD Service: ? Author Type: Physician Type: Progress Notes Filed: 07/30/2022 12:33 PM Note Text: NAME: Mikey Newton NO.: [id number] DATE OF SERVICE: July 29, 2022 Referring [...] FAMILY HISTORY Problem Relation (more content not included)...[facility] 07-29-2022 Instructions* Patient Instructions* Ricci Garcia MD - 07/29/2022 11:49 AM EDT HFE and iron labs today Call results in 2 weeks. documented in this encounterMercy [facility]09-21-2022 History of Present illness Narrative* Ricci Garcia MD - 07/29/2022 11:00 AM EDT Images from the original note were not included. NAME: Mikey Newton [facility] NO.: [id number] DATE OF SERVICE: July 29, 2022 Referring Provider: Scotty Ruiz Consultation requested by Dr. Ruiz for an opinion regarding Ms. Mikey Newton, and my final recommendations will be communicated back to the requesting physician by way of shared medical record or letter via US mail. Additional Clinicians involved in Branch Anderson Newton's care: DIAGNOSIS: Elevated iron ASSESSMENT: [...] which included preparing to see the patient, [id number] patient care, completing clinical documentation, obtaining and/or reviewing separately obtained history, performing a medically appropriate examination, counseling and educating the pat ient/family/caregiver, ordering medications, tests, or procedures, and independently interpreting results (not separately reported). Ricci Garcia MD, CPE Hematology and Oncology Services Provided at: [place], [place] CC: Scotty Ruiz [address] [place] [id number] Scotty Ruiz, DO [address] [place] [phone] documented in this encounterMercy [facility] Hospital09-06-2022 Evaluation note* Encounter Date Diagnosis [...] with her Vitamin D supplement. 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 A referral is provided. [facility] Other 07-27-2022 Evaluation note* Encounter Date Diagnosis Assessment Notes Treatment Notes Treatment Clinical Notes May, LORENA (obstructive sleep apnea) (ICD-10 - G47.33) [facility] Other 10-25-2021 Evaluation note* Encounter Date Diagnosis Assessment Notes Treatment Notes Treatment Clinical Notes Aug, Hypothyroidism (ICD-10 - E03.9) [facility] Other Evaluation + Plan note No data available for this section [facility] [place] Evaluation noteNo InformationNort [employer] Other evaluation noteNo assessment information available [facility] Work Phone: Evaluation note* Diagnosis Family history of hemochromatosis- Primary Family history of other endocrine and metabolic diseases Disorder of iron metabolism Other disorders of iron metabolism Hemochromatosis, unspecified hemochromatosis type documented in this encounter [facility]* Diagnosis 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 Other disorders of iron metabolism Family history of hemochromatosis Family history of other endocrine and metabolic diseases [facility] Diagnosis Hereditary hemochromatosis (HCC)- Primary Hereditary hemochromatosis [facility] Diagnosis Encounter to discuss test results Other specified counseling documented in this encounter [facility]* Diagnosis Onset Date Resolution Status Epilepsy acute Hemochromatosis acute Hyperglycemia acute Hyperlipidemia acute Hypocalcemia acute Hyponatremia acute Hypothyroidism acute Intentional weight loss acut e Vitamin D deficiency acute [facility] Work Phone: Hiswezv general Narrative - Reported* Type Description Date Medical History Epilepsy-1977; Follow's with Dr. Natalio Weaver Medical History History of [place] Medical History Hemochromotosis Medical History jabari Montes's patient's pap's and pelvics Medical History Patient states that she get's her Medical Equipment from [facility] Medical History LORENA (obstructive sleep apnea) Medical History Refuses Colonoscopy 02-08-17 Surgical History Brain Surgery 1988 Surgical History Tubal Ligation 1991 Surgical History Hysterectomy 2003 Hospitalization History Brain Surgery 1988 Hospitalization History Tubal Ligation 1991 Hospitalization History Hysterectomy 2003 [facility] Other Hisfrtb general Narrative - Reported* Type Description Date Medical History Epilepsy-1977; Follow's with Dr. Natalio Weaver Medical History History of [place] Medical History Hemochromotosis Medical History Dr. Mckeon, jabari's patient's pap's and pelvics Medical History Patient states that she get's her Medical Equipment from [facility] Medical History LORENA (obstructive sleep apnea) Medical History Refuses Colonoscopy 02-08-17 Medical History gallstones Surgical History Brain Surgery 1988 Surgical History Tubal Ligation 1991 Surgical History Hysterectomy 2003 Surgical History Colonoscopy - Dr. Jones / alejandra cavazos polyp 09/25/22 Hospitalization History Brain Surgery 1988 Hospitalization History Tubal Ligation 1991 Hospitalization History Hysterectomy 2003 [facility] Other history general Narrative - Reported* Type Description Date Medical History Epilepsy; Follow's with Dr. Natalio Weaver Medical History History of [place] Medical History Hemochromotosis Medical History jabari Montes's patient's pap's and pelvics Medical History Patient states that she get's her Medical Equipment from [facility] Medical History LORENA (obstructive sleep apnea) Medical History Refuses Colonoscopy 17 Medical History gallstones Surgical History Brain Surgery 1988 Surgical History Tubal Ligation 1991 Surgical History Hysterectomy 2003 Surgical History Colonoscopy - Dr. Holly presley / sigmoid polyp / needs repeat in 202409/09/22 Surgical History bariatric surgery 06/22/23 Hospitalization History Brain Surgery 1988 Hospitalization History Tubal Ligation 1991 Hospitalization History Hysterectomy 2003 [facility] Other Hospital Discharge instructions No data available for this section General Surgery [facility] Progress note No data available for this section General Surgery [facility] Reason for visit Narrativereview labs/medical clearance [facility] Other Chief Complaint and Reason for Visit [...] for screen ing colonoscopy (Z12.11) Referral Organization [facility] Family Medicin [facility] [place] Referring Provider First Name Scotty Referring Provider Last Name Sara Referring Provider Specialty Family Andressa vidal Referred Organization [facility] Referred Provider Kerry Jones Referred Address ,[place], [place],[address] Referred Provider Specialty Surgery Referral Priority Routine General Notes Luh Giraldo 07/14/2022 02:16:50 PM > referral faxed with visit note and insurance card. pt understands she will be contacted to schedule this appt. Reason appt pt is marcela breaux to see whomever can see her first pt needs consult to discuss official dx of hemochromatosis Diagnosis 1 Hemochromatosis (E83 .119) Referral Organization [facility] Family Medicin e [place] Referring Provider First Name Scotty Referring Provider Last Name Sara Referring Provider Specialty Family Prac marcy Referred Organization [facility] Referred Provider Ricci Garcia Referred Address [address] [place], [place],[address] Referred Provider Specialty Hematology/O ncology Referral Priority [...] Mahendra Romo , PhD Attending Provider Active Apparel Rental Clerk Relationship Specialty Start Date End Date Vincent Aguilar [address] [place] [phone] PCP - General Neurology 07/29/22 Apparel Rental Clerk Relationship Specialty Start Date End Date Vincent Aguilar [address] [place] [phone] PCP - General Neurology 07/29/22 [employer] Relationship Specialty Start Date End Date Scotty Ruiz MD [address] [place] [address] PCP - General Family Medicine [...] Team Status: Active Member Role Status Tawanda Ruzi DO Primary Care Provider Active S tart: [...] or prosecute any alcohol or drug abuse patient.[facility] Hospital[facility] the event this information is protected by the Federal Confidentiality of Alcohol and Drug Abuse Patient Records regulations: The Federal rules restrict any use of the information to criminally investigate or prosecute any alcohol or drug abuse patient.[facility] Hospital[facility] the event this information is protected by the Federal Confidentiality of Alcohol and Drug Abuse Patient Records regulations: The Federal rules restrict any use of the information to criminally investigate or prosecute any alcohol or drug abuse patient.[facility] INFORMATION SOURCE (unrecogn ized section and content) DATE CREATED AUTHOR 08/30/2022 [facility] DATE CREATED AUTHOR AUTHOR'S ORGANIZ ATION 09/27/2022 [facility] DATE CREATED AUTHOR AUTHOR'S ORGANIZ ATION 01/13/2023 [facility] DATE CREATED AUTHOR AUTHOR'S ORGANIZ ATION 06/04/2023 [facility] DATE CREATED AUTHOR AUTHOR'S ORGANIZ ATION 04/22/2024 [facility] FOR RECORDS PERTAINING TO PATIENTS WHO [...] BE BASED ON THE PRIMARY CLINICAL RECORDS. [facility] [employer] provides no warranty or guarantee of the accuracy or completeness of information in this document.
--- NOTE | 2024-08-13 16:40 | ED.GENADUL1 ---
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 Patient states that the first week of July as well as the third week of July she noted 3 episodes total each of those days of having migraine auras. Patient states that she has a history of migraines, has not had any in the last 10 years. Is on Vimpat, oxcarbazepine, and Keppra. Has a neurologist that she sees. She was having seizure aura, and that she wanted a follow-up appointment because her disability just ran out and she wanted to extend her long-term disability from the oral pool. She states that her neurologist did not want to schedule another EEG, nor extend her disability because she has not had seizures in over 10 years. Patient states that 6 times today she had episodes where she felt like she was going to have a seizure. Was not feeling lightheaded, was not having syncope, presyncope, just felt like she was going to have a seizure but the never had 1. 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 She states that all of them have resolved, and she is not having anything right now, but she wanted everything documented so that her neurologist can see that she was being seen for having seizure auras and they would do something about it. Patient is currently asymptomatic. Related Data Home Medications ?Medication ?Instructions ?Recorded ?Confirmed ergocalciferol (vitamin D2) 1,250 1,250 mcg PO QWEEK 08/13/24 08/13/24 mcg (50,000 unit) capsule (Vitamin D2) lacosamide 100 mg tablet 100 mg PO BID 08/13/24 08/13/24 levetiracetam 1,000 mg tablet 1,000 mg PO BID 08/13/24 08/13/24 levothyroxine 25 mcg tablet 50 mcg PO DAILY 08/13/24 08/13/24 oxcarbazepine 300 mg tablet 600 mg PO BID 08/13/24 08/13/24 valacyclovir 1 gram tablet 1,000 mg PO DAILY 08/13/24 08/13/24 Allergies Allergy/AdvReac Type Severity Reaction Status Date / Time Penicillins Allergy Severe Rash Verified 06/29/24 13:26 phenytoin [From Dilantin] Allergy Severe Swelling Verified 08/13/24 16:30 of the Eye phenobarbital AdvReac Severe Confusion Verified 06/29/24 13:26 Opioid HPI Opioid Management Most Recent Opioid Data: No Data to Display Review of Systems ROS Narrative Negative unless otherwise stated in the HPI PFSH PFSH Social History Little interest or pleasure in doing things: not at all Feeling down, depressed, or hopeless: not at all Exam Narrative Exam Narrative: General: NAD, AAOx3, no distress Neck: Supple, no LAD, no bruit Respiratory: respiratory effort normal, speaks in full sentences, no tripod position, no accessory muscle use. Lungs clear to auscultation without rhonchi, wheezes, rales Cardiac: Regular rate and rhythm, no edema, regular s1/s2, no m/g/r Neuro: Speech is clear and appropriate. Normal level of consciousness. Gait and coordination are normal. 5/5 strength in all extremities. Constitutional Vital Signs, click to edit/add: Last Vital Signs Temp 98.0 F 08/13/24 16:27 Pulse 104 H 08/13/24 16:27 Resp 16 08/13/24 16:27 BP 146/83 H 08/13/24 16:27 Pulse Ox 99 08/13/24 16:27 O2 Del Method Room Air 08/13/24 16:27 Course Vital Signs Vital signs: Vital Signs Temperature 98.0 F 08/13/24 16:27 Pulse Rate 104 H 08/13/24 16:27 Respiratory Rate 16 08/13/24 16:27 Blood Pressure 146/83 H 08/13/24 16:27 Pulse Oximetry 99 08/13/24 16:27 Oxygen Delivery Method Room Air 08/13/24 16:27 Temperature 98.0 F 08/13/24 16:27 Pulse Rate 104 H 08/13/24 16:27 Respiratory Rate 16 08/13/24 16:27 Blood Pressure 146/83 H 08/13/24 16:27 Pulse Oximetry 99 08/13/24 16:27 Oxygen Delivery Method Room Air 08/13/24 16:27 Medical Decision Making MDM Narrative Medical decision making narrative: Patient presenting to the ED for above-stated complaint. Labs were ordered. Patient with chronic hyponatremia. Unchanged. Has had no seizure-like activity while in the emergency department. No aura has returned. Patient states that she really just needed everything documented so her PCP and neurologist would obtain an EEG and get her disability back. Advanced guidance has been given. Vss, pex is benign at this time. Pt to fu with pcp 1-2 days for reeval, rter should sx worsen, persist or become worrysome in any way. All incidental laboratory studies, EKG, radiologic findings have been noted and discussed with patient. Patient was reevaluated with a benign exam at this time. Pt expressed understanding and agreement with plan of care at this time. Will fu as planned. Pt stable for discharge. Medical Records Medical records reviewed: Yes I reviewed the patient's medical records Lab Data Lab results reviewed: Yes I reviewed the patient's lab results Labs: Lab Results 08/13/24 Range/Units 16:56 Sodium 131 L (136-145) mmol/L Potassium 3.6 (3.5-5.1) mmol/L Chloride 95 L (98-107) mmol/L Carbon Dioxide 24.7 (21.0-32.0) mmol/L Anion Gap 14.9 BUN 20.0 H (7.0-18.0) mg/dL Creatinine 0.71 (0.55-1.02) mg/dL Est GFR ( Amer) >60 (>=60 mL/min/1.73m^2) Est GFR (Non-Af Amer) >60 (>=60 mL/min/1.73m^2) BUN/Creatinine Ratio 28.2 Glucose 87 (74-106) mg/dL Calcium 8.9 (8.5-10.1) mg/dL Discharge Plan Discharge Chief Complaint: Headache Clinical Impression: Aura Patient Disposition: Home, Self-Care Time of Disposition Decision: 17:55 Prescriptions / Home Meds: No Action ergocalciferol (vitamin D2) [Vitamin D2] 1,250 mcg (50,000 unit) capsule 1,250 mcg PO QWEEK lacosamide 100 mg tablet 100 mg PO BID levetiracetam 1,000 mg tablet 1,000 mg PO BID levothyroxine 25 mcg tablet 50 mcg PO DAILY oxcarbazepine 300 mg tablet 600 mg PO BID valacyclovir 1 gram tablet 1,000 mg PO DAILY Print Language: Bangladeshi Instructions: Epilepsy (DC) Additional Instructions: Follow-up with your PCP in the next 1 to 2 days. Return to the emergency department should symptoms worsen or become worrisome in any way. Referrals: SCOTTY RUIZ [Primary Care Provider] - 1 week Discharge Date/Time: 08/13/24 18:00
[2024-08-13 17:35] LABS: Anion Gap 14.9; BUN Creatinine Ratio 28.2; Calcium 8.9 mg/dL (8.5-10.1); Carbon Dioxide 24.7 mmol/L (21.0-32.0); Chloride 95 mmol/L (98-107); Estimated GFR (African America >60 (>=60 mL/min/1.73m^2); Estimated GFR (Non-African Ame >60 (>=60 mL/min/1.73m^2); Glucose 87 mg/dL (74-106); Potassium 3.6 mmol/L (3.5-5.1); Sodium 131 mmol/L (136-145)
== END 2024-08-13 18:00 | disposition home or self-care (01) ==
PROVIDERS: Emergency Provider Emergency Medicine; PCP Family Medicine
DX: G43.109 Migraine with aura, not intractable, without status migrainosus (principal); E87.1 Hypo-osmolality and hyponatremia
CPT/HCPCS: 36415; 80048; 99283

== ENCOUNTER 2024-10-20 09:49 | Outpatient (OUT) | payer MEDICARE, SELFPAY ==
--- OUTSIDE RECORDS SUMMARY | 2024-10-20 10:08 | XMS_ITS | CCD ---
Author Organization [facility] Care Team Providers Care Asbestos Remover Name Role Phone Scotty Ruiz Unavailable Rajendra Angulo Unavailable [phone] DO Scotty Ruiz Primary Care Provider MD Rajendra Angulo Attending Provider Clarissa, PhD Mahendra Attending Provider [phone] Vincent Aguilar Primary Care Provider [phone] Scotty Ruiz Primary Care Physician SCOTTY RUIZ Referring Unavailable SCOTTY RUIZ Primary Care Unavailable HUSSAINAR, RICCI Attending Unavailable VINCENT AGUILAR Primary Care Unavailable RADHA, RICCI Referring Unavailable VINCENT AGUILAR Primary Care Unavailable ABSASHAAR, RICCI Referring Unavailable RADHA, RICCI Attending Unavailable VINCENT AGUILAR Primary Care Unavailable HUSSAINAR, RICCI Referring Unavailable VINCENT GAUILAR Primary Care Unavailable HUSSAINAR, RICCI Referring Unavailable [...] Unavailable Girvin, DO Fajardo Primary Care Provider [phone] MD Rajendra Angulo Attending Provider Mahendra Romo Attending Unavailable Mahendra Romo Admitting Unavailable Sara, Scotty Primary Care Unavailable Rajendra Angulo Attending UnavailRajendra Small Admitting Unavaila ble Scotty Ruiz Primary Care Unavailable Scotty Ruiz MD Primary Care Provider TREVOR WHEELER Attending Unavailable KEREN VALLES Attending Unavailable Allergies Allergy Classification Reported Allergen(s) Allergy Type Date of Onset Reaction(s) Facility (14 sources) Penicillin V Drug Allergy rash [employer] Other (17 sources) Valproate; Translations: [divalproex sodium] Drug Allergy Mood [facility] (4 sources) Penicillins; Translations: [PENICILLINS] Propensity to adverse reactions 03-13-20 08 [facility] (11 sources) PHENobarbital; Translations: [phenobarbital] Drug Allergy 03-13-20 08 Other (qualifier value), Other, Rash [facility] (4 sources) Penicillin; Translations: [penicillin] Drug Allergy Eruption of skin (disorder) [facility] (2 sources) Valproate; Translations: [Depakote] Drug Allergy [facility] (1 source) benzoin resin Drug Allergy [facility] (1 source) Penicillins Drug allergy (disorder) 08-13-20 15 [facility] (1 source) Phenytoin Drug Allergy [facility] (1 source) Unable to Assess Drug allergy (disorder) 09-19-20 [facility] (3 sources) Penicillins Drug Intolerance 03-13-20 08 Rash, Unknown [facility] (3 sources) Valproate Drug Allergy 11-08-[address] [facility] Healthcare Medications Current Medications Medication [...] carBAMazepine 300 mg extended release oral capsule (20 sources) Mood Stabilizer Start: 05-01-2024 take 300 mg by mouth twice daily Carbamazepine Active 300 MG PO Twice daily May 01, 2024 12:00am take 1 capsule by mouth every si [...] Start: 10-28-2023 ergocalciferol (Vitamin D2) 1.25 MG (23872 UT) capsule 10/28/2023 Active Start: 08-07-2016 VITAMIN D 50,0 00 unit capsule take 1 capsule by mo uth every week Vitamin D (Ergocalciferol) 87933 UNIT TAKE 1 CAPSULE BY MOUTH ONCE A WEEK for 90 days Active take 1 capsule by mo uth every week Vitamin D (Ergocalciferol) 55334 UNIT TAKE 1 CAPSULE BY MOUTH ONCE A WEEK Active gabapentin 100 mg oral capsu (6 sources) Anti-epileptic Agent gabapentin (Neurontin) 100 MG capsule Orally 4 times a day and as needed Active Neurontin 75 mg 4 x a day Not-Taking lacosamide 100 mg oral tablet (20 sources) Anti-epileptic Agent Start: 05-01-2024 take 1 tablet by mouth twice daily lacosamide (Vimpat) 100 MG tablet Indications: Partial symptomatic epilepsy with complex partial seizures, intractable, without status epilepticus (CMS/HCC) One tab by mouth twice a day 60 tablet 2 06/28/2024 Active Start: 07-27-2022 take 1 tablet by mariana twice daily Vimpat 200 mg oral tablet 200 mg = 1 tab(s), Oral, BID, Refills(s) 0 Start Date: 07/27/22 Status: Ordered take 3 tablets by mo uth in the morning lacosamide (Vimpat) 50 MG tablet Take 150 mg by mouth in the morning and 150 mg in the evening. 0 Active take 1 tablet by mariana th every twelve hours Vimpat 100 MG 1 tablet Orally Twice a day Active take 1 tablet by mariana th five times daily Vimpat 100 MG 1 tablet Orally 5 times per day Not-Taking levETIRAcetam 1000 mg oral tablet (20 sources) Start: 05-01-2024 take 1 tablet by mouth in the morning levETIRAcetam (Keppra) 1000 MG tablet Indications: Seizure (CMS/HCC) Take 1 tablet (1,000 mg) by mouth in the morning and 1 tablet (1,000 mg) before bedtime. 180 tablet 1 05/01/2024 Active Start: 02-06-2021 take 1 tablet by mariana [...] drink for 30-45 min after taking Start: 07-29-2023 End: 05-02-2024 take 1 tablet by mouth once daily in the morning Levothyroxine Discontinued 75 MCG PO May 01, 2024 12:00am May 02, 2024 11:46am TAKE 1 TABLET EVERY MORNING ON AN EMPTY STOMACH Start: 07-27-2022 take 1 tablet by mariana th once daily levothyroxine 50 mcg (0.05 mg) Tab 50 mcg = 1 tab(s), Oral, Daily, Refills(s) 0 Start Date: 07/27/22 Status: Ordered Start: 08-22-2016 levothyroxine (SYNTHROID) 25 mcg tablet Levothyroxine So dium 75 MCG TAKE 1 TABLET EVERY MORNING ON AN EMPTY STOMACH for 90 days Active OXcarbazepine 300 mg oral tablet (9 sources) Anti-epileptic Agent Start: 06-26-2024 take 2 tablets by mouth in the morning OXcarbazepine (Trileptal) 300 MG tablet Indications: Seizure (CMS/HCC) Take 2 tablets (600 mg) by mouth in the morning and 2 tablets (600 mg) before bedtime. 360 tablet 1 06/26/2024 Active Start: 11-08-2019 take 1 tablet by mariana th twice daily oxcarbazepine 300 mg Tab 300 mg = 1 tab(s), Oral, BID, Refills(s) 0 Start Date: 08/04/22 Status: Ordered valACYclovir 1000 mg oral tablet (20 sources) Herpesvirus Nucleoside Analog DNA Polymerase Inhibitor, Herpes Simplex Virus Nucleoside Analog DNA Polymerase Inhibitor, Herpes Zoster Virus Nucleoside Analog DNA Polymerase Inhibitor Start: 03-21-2024 End: 03-16-2025 take 1 tablet by mouth once daily [...] one(1) tablet d aily. Vitamin D (Ergocalciferol) 97287 UNIT (1 source) take 1 capsule by mouth every week Vitamin D (Ergocalciferol) 96071 UNIT TAKE 1 CAPSULE BY MOUTH ONCE A WEEK Active Completed/Discontinued Medications Medication Drug Class(es) Dates Sig (Normalized) Sig (Original) calcium phosphate dibas/vit D3 (VITAMIN D, WITH CALCIUM, ORAL) (3 sources) Start: 01-07-2016 calcium phosphate dibas/vit D3 (VITAMIN D, WITH CALCIUM, ORAL) estrogens, conjugated (retirement) 0.625 mg oral tablet (3 sources) Estrogen [...] time each day at the same time Active take 1 tablet by mariana th [...] omeprazole 20 mg delayed release oral capsule (9 sources) Proton Pump Inhibitor Start: 06-23-2023 End: 05-02-2024 take 1 capsule by mouth once daily Omeprazole Discontinued 20 MG PO Daily May 01, 2024 12:00am May 02, 2024 11:45am 1 capsule 30 minutes before morning meal Orally Once a day; ursodiol 300 mg oral capsule (9 sources) Bile Acid Start: 11-08-2021 End: 05-02-2024 take 300 mg by mouth twice daily Ursodiol Discontinued 300 MG PO Twice daily May 01, 2024 12:00am May 02, 2024 11:17am Vitamin D 50,000 intl units (1.25 mg) [...] of examination or test findings] 12-08-2023 Episodic Aortic; peripheral; and visceral artery aneurysms (1 source) Aneurysm; Translations: [Aneurysm of unspecified site] Onset: 04-20-2024 04-20-2024 Chronic Biliary tract disease (9 sources) Gallstone; Translations: [...] Translations: [Nocturia] Onset: 07-09-2022 Resolved: 07-14-2022 Episodic Headache; including migraine (1 source) Migraine without aura, not refractory ; Translations: [Migraine without aura, not intractable, without status migrainosus] Onset: 04-20-2024 04-20-2024 Chronic Nutritional deficiencies (20 sources) Vitamin D deficiency; Translations: [Vitamin D deficiency, unspecified] Onset: 07-14-2022 Resolved: 07-14-2022 Chronic Other aftercare (5 sources) Other long-term (current) drug therapy; Translations: [OTH MANAGER TRANSPLANT CURRENT DRUG THERAPY] Onset: 07-14-2022 Resolved: 07-14-2022 [...] 07-14-2022 Resolved: 07-14-2022 Episodic Residual codes; unclassified (20 sources) Obstructive sleep apnea syndrome; Translations: [Obstructive sleep apnea (adult) (pediatric)] Onset: 04-20-2024 07-27-2022 Chronic Residual codes; unclassified (17 sources) [...] LIGATION STATUS] Onset: 09-14-2022 Episodic Epilepsy; convulsions (5 sources) Unspecified convulsions; Translations: [Seizure] Onset: 10-08-2022 Episodic Other and unspecified benign [...] 07-14-2024 Free T4 [Mass/Vol] 0.85 ng/dL 0.76-1.46 [facility] TSH Qn 2.233 m[IU]/L 0.358-3.740 [facility] No Panel Informationon 07-14 Free Triiodothyronine 2.00 pg/mL Low 2.18-3.98 [facility] Parathyroid Hormone (Intact) 42 pg/mL 1565 [facility] Comment on above: Performed at: [facility] [place] [id number] Director: Lonnie Mackenzie PhD, Phone: [phone] Phosphorus Level 3.3 mg/dL 2.6-4.7 [facility] Serum ionized calcium measur ement using ion specific electrode (mass/volume)on 07-14-2024 Calcium.ionized ISE [Mass/Vol] 4.8 mg/dL 4.5-5.6 [facility] Comment on above: Performed at: [id number] [place], [place] [id number] Director: Lonnie Mackenzie PhD, Phone: [phone] Basophils Auto (Bld) [#/Vol] on 06-29-2024 Basophils (Bld) [#/Vol] 0.0 10 3/uL 0.0-0.1 [facility] Basophils/100 WBC Auto (Bld) on 06-29-2024 Basophils/100 WBC (Bld) 0.5 % 0.2-2.0 [facility] Eosinophils/100 WBC Auto (Bl d)on 06-29-2024 Eosinophils/100 WBC (Bld) 1.9 % 0.9-7.0 [facility] Erythrocyte distribution wid th Auto (RBC) [Ratio]on 06-29-2024 Erythrocyte distribution width (RBC) [Ratio] 11.9 % 11.0-15.0 [facility] Estimated glomerular filtrat ion rate (GFR) non- Americanon 06-29-2024 GFR/1.73 sq M.predicted among non-blacks MDRD (S/P/Bld) [Vol rate/Area] mL/min/{1.73_m2} >=60 [facility] Globulin Calc (S) [Mass/Vol] on 06-29-2024 Globulin (S) [Mass/Vol] 3.7 g/dL [facility] Hematocrit Auto (Bld) [Volum e fraction]on 06-29-2024 Hematocrit (Bld) [Volume fraction] 41.3 % 36.0-48.0 [facility] Hemoglobin [Mass/volume] in Bloodon 06-29-2024 Hemoglobin (Bld) [Mass/Vol] 14.8 g/dL 12.0-16.0 [facility] INR in Platelet poor plasma by Coagulation assayon 06-29-2024 INR Coag (PPP) [Relative time] 1.03 {INR} [facility] Comment on above: DESIRED INR:2.0-3.0 CONDITIONS NOT LISTED BELOW2.5-3.5 FOR PROSTHETIC HEART VALVE REPLACEMENT2.5-3.5 RECURRENT THROMBOSIS Laboratory - Chemistry and C hemistry - challengeon 06-29-2024 Bilirubin Ql (U) Negative NEGATIVE [facility] Glucose (U) [Mass/Vol] Negative NEGATIVE [facility] Ketones Ql (U) Negative NEGATIVE [facility] pH (U) 7.0 [pH] 5.0-9.0 [facility] Specific gravity (U) [Rel density] <=1.005 Abnormal 1.005-1.025 [facility] Urobilinogen Qn (U) 0.2 {Anita'U}/dL 0.2-1.0 [facility] Albumin [Mass/Vol] 3.8 g/dL 3.4-5.0 [facility] ALP [Catalytic activity/Vol] 124 U/L High 46-116 [facility] ALT [Catalytic activity/Vol] 24 U/L 14-59 [facility] AST [Catalytic activity/Vol] 25 U/L 15-37 [facility] Bilirubin [Mass/Vol] 0.5 mg/dL 0.2-1.0 [facility] Calcium [Mass/Vol] 9.0 mg/dL 8.5-10.1 [facility] Chloride [Moles/Vol] 94 mmol/L Low 98-107 [facility] CO2 [Moles/Vol] 26.3 mmol/L 21.0-32.0 [facility] Creatinine [Mass/Vol] 0.76 mg/dL 0.55-1.02 [facility] GFR/1.73 sq M.predicted MDRD (S/P/Bld) [Vol rate/Area] mL/min/{1.73_m2} >=60 [facility] Glucose [Mass/Vol] 99 mg/dL 74-106 [facility] Lactate [Moles/Vol] 2.6 mmol/L High 0.4-2.0 [facility] Comment on above: RESULTS CALLED TO HOANG BURGESS Lipase [Catalytic activity/Vol] 52.0 U/L 16.0-77.0 [facility] Potassium [Moles/Vol] 3.9 mmol/L 3.5-5.1 [facility] Protein [Mass/Vol] 7.5 g/dL 6.4-8.2 [facility] Sodium [Moles/Vol] 129 mmol/L Low 136-145 [facility] Urea nitrogen [Mass/Vol] 14.0 mg/dL 7.0-18.0 [facility] Urea nitrogen/Creatinine [Mass ratio] 18.4 mg/mg [facility] Laboratory - Hematology and Cell countson 06-29-2024 Immature granulocytes/100 WBC (Bld) 0.2 % 0.0-0.5 [facility] Laboratory - Specimen inform ationon 06-29-2024 Appearance (U) CLEAR CLEAR [facility] Color (U) LT. YELLOW YELLOW [facility] Laboratory - Urinalysison Leukocyte esterase Test strip Ql (U) Negative NEGATIVE [facility] Nitrite Ql (U) Negative NEGATIVE [facility] Protein Ql (U) Negative NEG/TRACE [facility] Leukocytes [#/volume] correc trisha for nucleated erythrocytes in Blood by Automated counon 06-29-2024 WBC corrected for nucl RBC Auto (Bld) [#/Vol] 5.9 10 3/uL 4.0-11.0 [facility] Lymphocytes Auto (Bld) [#/Vo l]on 06-29-2024 Lymphocytes (Bld) [#/Vol] 1.9 10 3/uL 1.2-3.8 [facility] Lymphocytes/100 WBC Auto (Bl d)on 06-29-2024 Lymphocytes/100 WBC (Bld) 32.8 % 20.5-60.0 [facility] MCH Auto (RBC) [Entitic mass ]on 06-29-2024 MCH (RBC) [Entitic mass] 33.9 pg 26.7-34.0 [facility] MCHC Auto (RBC) [Mass/Vol]on 06-29-2024 MCHC (RBC) [Mass/Vol] 35.8 g/dL High 29.9-35.2 [facility] MCV Auto (RBC) [Entitic vol] on 06-29-2024 MCV (RBC) [Entitic vol] 94.7 fL 81.0-99.0 [facility] Monocytes Auto (Bld) [#/Vol] on 06-29-2024 Monocytes (Bld) [#/Vol] 0.6 10 3/uL 0.3-0.8 [facility] Monocytes/100 WBC Auto (Bld) on 06-29-2024 Monocytes/100 WBC (Bld) 10.3 % 1.7-12.0 [facility] Neutrophils Auto (Bld) [#/Vo l]on 06-29-2024 Neutrophils (Bld) [#/Vol] 3.2 10 3/uL 1.4-6.5 [facility] Neutrophils/100 WBC Auto (Bl d)on 06-29-2024 Neutrophils/100 WBC (Bld) 54.3 % 43.0-75.0 [facility] No Panel Informationon 06-29 Urine Microscopic Review NO [facility] Urine Occult Blood Negative NEGATIVE [facility] Eosinophils # (Auto) 0.1 10 3/uL 0.0-0.7 [facility] Immature Granulocyte # (Auto) 0.01 10 3/uL 0.00-0.03 [facility] Troponin I High Sensitivity <4.0 pg/mL Low 4.0-51.3 [facility] Comment on above: CUT-OFF POINTS HAVE [...] (Bld) [Entitic vol] 8.7 fL Low 9.5-13.5 [facility] Platelets Auto (Bld) [#/Vol] on 06-29-2024 Platelets (Bld) [#/Vol] 310 10 3/uL 150-450 [facility] Prothrombin time (PT)on 06-09 PT Coag (PPP) [Time] 10.9 s 9.0-11.6 [facility] RBC Auto (Bld) [#/Vol]on RBC (Bld) [#/Vol] 4.36 10 6/uL 4.20-5.40 [facility] Serum or plasma albumin/glob ulin mass ratioon 06-29-2024 Albumin/Globulin [Mass ratio] 1.0 {ratio} [facility] Serum or plasma anion gap de terminationon 06-29-2024 Anion gap [Moles/Vol] 12.6 mmol/L [facility] Basophils Auto (Bld) [#/Vol] on 06-19-2024 Basophils (Bld) [#/Vol] 0.0 10 3/uL 0.0-0.1 [facility] Basophils/100 WBC Auto (Bld) on 06-19-2024 Basophils/100 WBC (Bld) 0.5 % 0.2-2.0 [facility] Blood thiamine measurement ( moles/volume)on 06-19-2024 Thiamine (Bld) [Moles/Vol] 168.2 nmol/L 66.5-200.0 [facility] Comment on above: This test was develo ped and its performance characteristicsdetermined by [employer]. It has not been cleared orapproved by the Food and Drug Administration.Performed at: [address] [id number] Director: Chata Patel MD, Phone: [phone] Eosinophils/100 WBC Auto (Bl d)on 06-19-2024 Eosinophils/100 WBC (Bld) 0.0 % Low 0.9-7.0 [facility] Erythrocyte distribution wid th Auto (RBC) [Ratio]on 06-19-2024 Erythrocyte distribution width (RBC) [Ratio] 12.0 % 11.0-15.0 [facility] Estimated glomerular filtrat ion rate (GFR) non- Americanon 06-19-2024 GFR/1.73 sq M.predicted among non-blacks MDRD (S/P/Bld) [Vol rate/Area] mL/min/{1.73_m2} >=60 [facility] Globulin Calc (S) [Mass/Vol] on 06-19-2024 Globulin (S) [Mass/Vol] 3.2 g/dL [facility] Hematocrit Auto (Bld) [Volum e fraction]on 06-19-2024 Hematocrit (Bld) [Volume fraction] 40.4 % 36.0-48.0 [facility] Hemoglobin [Mass/volume] in Bloodon 06-19-2024 Hemoglobin (Bld) [Mass/Vol] 14.1 g/dL 12.0-16.0 [facility] Iron binding capacity [Mass/ volume] in Serum or Plasmaon 06-19-2024 Iron binding capacity [Mass/Vol] 264.0 ug/dL 250.0-450.0 [facility] Iron saturation [Mass Fracti on] in Serum or Plasmaon 06-19-2024 Iron saturation [Mass fraction] 51.5 % [facility] Laboratory - Chemistry and C hemistry - challengeon 06-19-2024 Albumin [Mass/Vol] 3.9 g/dL 3.4-5.0 [facility] ALP [Catalytic activity/Vol] 122 U/L High 46-116 [facility] ALT [Catalytic activity/Vol] 26 U/L 14-59 [facility] AST [Catalytic activity/Vol] 19 U/L 15-37 [facility] Bilirubin [Mass/Vol] 0.5 mg/dL 0.2-1.0 [facility] Calcium [Mass/Vol] 8.7 mg/dL 8.5-10.1 [facility] Chloride [Moles/Vol] 95 mmol/L Low 98-107 [facility] CO2 [Moles/Vol] 28.9 mmol/L 21.0-32.0 [facility] Cobalamin (Vitamin B12) [Mass/Vol] 2841.0 pg/mL High 193.0-986.0 [facility] Creatinine [Mass/Vol] 0.70 mg/dL 0.55-1.02 [facility] Ferritin [Mass/Vol] 223.0 ng/mL 8.0-252.0 [facility] GFR/1.73 sq M.predicted MDRD (S/P/Bld) [Vol rate/Area] mL/min/{1.73_m2} >=60 [facility] Glucose [Mass/Vol] 92 mg/dL 74-106 [facility] Iron [Mass/Vol] 136.0 ug/dL 50.0-170.0 [facility] Magnesium [Mass/Vol] 1.8 mg/dL 1.8-2.4 [facility] Potassium [Moles/Vol] 3.7 mmol/L 3.5-5.1 [facility] Protein [Mass/Vol] 7.1 g/dL 6.4-8.2 [facility] Sodium [Moles/Vol] 131 mmol/L Low 136-145 [facility] Urea nitrogen [Mass/Vol] 10.0 mg/dL 7.0-18.0 [facility] Urea nitrogen/Creatinine [Mass ratio] 14.3 mg/mg [facility] Laboratory - Hematology and Cell countson 06-19-2024 Immature granulocytes/100 WBC (Bld) 0.0 % 0.0-0.5 [facility] Leukocytes [#/volume] correc trisha for nucleated erythrocytes in Blood by Automated counon 06-19-2024 WBC corrected for nucl RBC Auto (Bld) [#/Vol] 4.0 10 3/uL 4.0-11.0 [facility] Lymphocytes Auto (Bld) [#/Vo l]on 06-19-2024 Lymphocytes (Bld) [#/Vol] 1.7 10 3/uL 1.2-3.8 [facility] Lymphocytes/100 WBC Auto (Bl d)on 06-19-2024 Lymphocytes/100 WBC (Bld) 42.0 % 20.5-60.0 [facility] MCH Auto (RBC) [Entitic mass ]on 06-19-2024 MCH (RBC) [Entitic mass] 33.8 pg 26.7-34.0 [facility] MCHC Auto (RBC) [Mass/Vol]on 06-19-2024 MCHC (RBC) [Mass/Vol] 34.9 g/dL 29.9-35.2 [facility] MCV Auto (RBC) [Entitic vol] on 06-19-2024 MCV (RBC) [Entitic vol] 96.9 fL 81.0-99.0 [facility] Monocytes Auto (Bld) [#/Vol] on 06-19-2024 Monocytes (Bld) [#/Vol] 0.4 10 3/uL 0.3-0.8 [facility] Monocytes/100 WBC Auto (Bld) on 06-19-2024 Monocytes/100 WBC (Bld) 9.0 % 1.7-12.0 [facility] Neutrophils Auto (Bld) [#/Vo l]on 06-19-2024 Neutrophils (Bld) [#/Vol] 1.9 10 3/uL 1.4-6.5 [facility] Neutrophils/100 WBC Auto (Bl d)on 06-19-2024 Neutrophils/100 WBC (Bld) 48.5 % 43.0-75.0 [facility] No Panel Informationon 06-19 25-Hydroxy Vitamin D Total 117.9 ng/mL [facility] Comment on above: <20 ng/mL Vit D defi cient20-<30 ng/mL Vit D [id number] ng/mL Vit D sufficient>100 ng/mL Potential Toxicity Eosinophils # (Auto) 0.0 10 3/uL 0.0-0.7 [facility] Folate 26.60 ng/mL 8.60-58.90 [facility] Immature Granulocyte # (Auto) 0.00 10 3/uL 0.00-0.03 [facility] Phosphorus Level 3.6 mg/dL 2.6-4.7 [facility] Platelet mean volume Auto (B ld) [Entitic vol]on 06-19-2024 Platelet mean volume (Bld) [Entitic vol] 8.6 fL Low 9.5-13.5 [facility] Platelets Auto (Bld) [#/Vol] on 06-19-2024 Platelets (Bld) [#/Vol] 296 10 3/uL 150-450 [facility] RBC Auto (Bld) [#/Vol]on RBC (Bld) [#/Vol] 4.17 10 6/uL Low 4.20-5.40 [facility] Serum or plasma albumin/glob ulin mass ratioon 06-19-2024 Albumin/Globulin [Mass ratio] 1.2 {ratio} [facility] Serum or plasma anion gap de terminationon 06-19-2024 Anion gap [Moles/Vol] 10.8 mmol/L [facility] Basophils Auto (Bld) [#/Vol] on 04-26-2024 Basophils (Bld) [#/Vol] 0.0 10 3/uL 0.0-0.1 [facility] Basophils/100 WBC Auto (Bld) on 04-26-2024 Basophils/100 WBC (Bld) 0.6 % 0.2-2.0 [facility] Cholesterol in LDL Calc [Mas s/Vol]on 04-26-2024 Cholesterol in LDL [Mass/Vol] 98.0 mg/dL [facility] Comment on above: <100 mg/dl [id number] 0-129 mg/dl NEAR OR ABOVE [id number] mg/dl BORDERLINE [id number] mg/dl HIGH>190 mg/dl VERY HIGH Cholesterol in VLDL Calc [Ma ss/Vol]on 04-26-2024 Cholesterol in VLDL [Mass/Vol] 4.2 mg/dL [facility] Eosinophils/100 WBC Auto (Bl d)on 04-26-2024 Eosinophils/100 WBC (Bld) 0.0 % Low 0.9-7.0 [facility] Erythrocyte distribution wid th Auto (RBC) [Ratio]on 04-26-2024 Erythrocyte distribution width (RBC) [Ratio] 12.4 % 11.0-15.0 [facility] Estimated glomerular filtrat ion rate (GFR) non- Americanon 04-26-2024 GFR/1.73 sq M.predicted among non-blacks MDRD (S/P/Bld) [Vol rate/Area] mL/min/{1.73_m2} >=60 [facility] Globulin Calc (S) [Mass/Vol] on 04-26-2024 Globulin (S) [Mass/Vol] 3.9 g/dL [facility] Glucose mean value [Mass/vol ume] in Blood Estimated from glycated hemoglobinon 04-26-2024 Average glucose Estimated from glycated hemoglobin (Bld) [Mass/Vol] 105 mg/dL [facility] Hematocrit Auto (Bld) [Volum e fraction]on 04-26-2024 Hematocrit (Bld) [Volume fraction] 41.3 % 36.0-48.0 [facility] Hemoglobin [Mass/volume] in Bloodon 04-26-2024 Hemoglobin (Bld) [Mass/Vol] 14.0 g/dL 12.0-16.0 [facility] Iron binding capacity [Mass/ volume] in Serum or Plasmaon 04-26-2024 Iron binding capacity [Mass/Vol] 300.0 ug/dL 250.0-450.0 [facility] Iron saturation [Mass Fracti on] in Serum or Plasmaon 04-26-2024 Iron saturation [Mass fraction] 59.3 % [facility] Laboratory - Chemistry and C hemistry - challengeon 04-26-2024 Albumin [Mass/Vol] 3.5 g/dL 3.4-5.0 [facility] ALP [Catalytic activity/Vol] 160 U/L High 46-116 [facility] ALT [Catalytic activity/Vol] 29 U/L 14-59 [facility] AST [Catalytic activity/Vol] 21 U/L 15-37 [facility] Bilirubin [Mass/Vol] 0.4 mg/dL 0.2-1.0 [facility] Calcium [Mass/Vol] 8.4 mg/dL Low 8.5-10.1 [facility] Chloride [Moles/Vol] 98 mmol/L 98-107 [facility] Cholesterol [Mass/Vol] 228 mg/dL High <=200 [facility] Cholesterol in HDL [Mass/Vol] 126 mg/dL High 40-60 [facility] Comment on above: > or =60 mg/dl - LOW CARDIOVASCULAR RISK<40 mg/dl - HIGH CARDIOVASCULAR RISK CO2 [Moles/Vol] 29.6 mmol/L 21.0-32.0 [facility] Creatinine [Mass/Vol] 0.71 mg/dL 0.55-1.02 [facility] Ferritin [Mass/Vol] 188.0 ng/mL 8.0-252.0 [facility] Free T4 [Mass/Vol] 0.72 ng/dL Low 0.76-1.46 [facility] GFR/1.73 sq M.predicted MDRD (S/P/Bld) [Vol rate/Area] mL/min/{1.73_m2} >=60 [facility] Glucose [Mass/Vol] 99 mg/dL 74-106 [facility] Iron [Mass/Vol] 178.0 ug/dL High 50.0-170.0 [facility] Potassium [Moles/Vol] 4.6 mmol/L 3.5-5.1 [facility] Protein [Mass/Vol] 7.4 g/dL 6.4-8.2 [facility] Sodium [Moles/Vol] 133 mmol/L Low 136-145 [facility] Triglyceride [Mass/Vol] 21 mg/dL <=150 [facility] TSH Qn 7.238 m[IU]/L High 0.358-3.740 [facility] Urea nitrogen [Mass/Vol] 9.0 mg/dL 7.0-18.0 [facility] Urea nitrogen/Creatinine [Mass ratio] 12.7 mg/mg [facility] Laboratory - Hematology and Cell countson 04-26-2024 HbA1c (Bld) [Mass fraction] 5.3 % 4.5-6.2 [facility] Comment on above: ADA RECOMMENDED LIMI T 4.0 - 6.0ADA THERAPEUTIC TARGET < 7.0ACTION SUGGESTED> 7.0 Immature granulocytes/100 WBC (Bld) 0.0 % 0.0-0.5 [facility] Leukocytes [#/volume] correc trisha for nucleated erythrocytes in Blood by Automated counon 04-26-2024 WBC corrected for nucl RBC Auto (Bld) [#/Vol] 4.9 10 3/uL 4.0-11.0 [facility] Lymphocytes Auto (Bld) [#/Vo l]on 04-26-2024 Lymphocytes (Bld) [#/Vol] 2.0 10 3/uL 1.2-3.8 [facility] Lymphocytes/100 WBC Auto (Bl d)on 04-26-2024 Lymphocytes/100 WBC (Bld) 41.3 % 20.5-60.0 [facility] MCH Auto (RBC) [Entitic mass ]on 04-26-2024 MCH (RBC) [Entitic mass] 32.7 pg 26.7-34.0 [facility] MCHC Auto (RBC) [Mass/Vol]on 04-26-2024 MCHC (RBC) [Mass/Vol] 33.9 g/dL 29.9-35.2 [facility] MCV Auto (RBC) [Entitic vol] on 04-26-2024 MCV (RBC) [Entitic vol] 96.5 fL 81.0-99.0 [facility] Monocytes Auto (Bld) [#/Vol] on 04-26-2024 Monocytes (Bld) [#/Vol] 0.4 10 3/uL 0.3-0.8 [facility] Monocytes/100 WBC Auto (Bld) on 04-26-2024 Monocytes/100 WBC (Bld) 7.5 % 1.7-12.0 [facility] Neutrophils Auto (Bld) [#/Vo l]on 04-26-2024 Neutrophils (Bld) [#/Vol] 2.5 10 3/uL 1.4-6.5 [facility] Neutrophils/100 WBC Auto (Bl d)on 04-26-2024 Neutrophils/100 WBC (Bld) 50.6 % 43.0-75.0 [facility] No Panel Informationon 04-26 25-Hydroxy Vitamin D Total 106.7 ng/mL [facility] Comment on above: <20 ng/mL Vit D defi cient20-<30 ng/mL Vit D [id number] ng/mL Vit D sufficient>100 ng/mL Potential Toxicity Eosinophils # (Auto) 0.0 10 3/uL 0.0-0.7 [facility] Immature Granulocyte # (Auto) 0.00 10 3/uL 0.00-0.03 [facility] Total Triiodothyronine 74 ng/dL 71-180 [facility] Comment on above: Performed at: [address] [id number] Director: Lonnie Mackenzie PhD, Phone: [phone] Platelet mean volume Auto (B ld) [Entitic vol]on 04-26-2024 Platelet mean volume (Bld) [Entitic vol] 8.6 fL Low 9.5-13.5 [facility] Platelets Auto (Bld) [#/Vol] on 04-26-2024 Platelets (Bld) [#/Vol] 311 10 3/uL 150-450 [facility] RBC Auto (Bld) [#/Vol]on RBC (Bld) [#/Vol] 4.28 10 6/uL 4.20-5.40 [facility] Serum or plasma albumin/glob ulin mass ratioon 04-26-2024 Albumin/Globulin [Mass ratio] 0.9 {ratio} [facility] Serum or plasma anion gap de terminationon 04-26-2024 Anion gap [Moles/Vol] 10.0 mmol/L [facility] Serum or plasma total choles terol/high density lipoprotein (HDL) cholesterol mass rosalio 04-26-2024 Cholesterol.total/C holesterol in HDL [Mass ratio] 1.8 {ratio} [facility] Comment on above: 3.3 - 4.4 LOW RISK4. 4 - 7.1 AVERAGE RISK7.1 - 11.0 MODERATE RISK>11.0 HIGH RISK ALKP ISOENZYMESon 01-12-2023 ALP [Catalytic activity/Vol] 159 U/L Critically high 44-121 [facility] Comment on above: Performed By: #### A LKPISO #### [facility] [address] [place] [address] Dr. Cecilio Gale Bone Fraction: 36 % Normal 14-68 [facility] Comment on above: Performed By: #### A LKPISO #### [facility] [address] [place] [address] Dr. Cecilio Gale Intestinal Frac.: 6 % Normal 0-18 [facility] Comment on above: Performed By: #### A LKPISO #### [facility] [address] [address] [address] Cecilio Gale Liver Fraction: 59 % Normal 18-85 [facility] Comment on above: Performed By: #### A LKPISO #### [facility] [address] [place] [address] Dr. Cecilio Gale CBC AUTO DIFFon 01-11-2023 BASO # 0.0 103/ul Normal 0.0-0.1 [facility] Comment on above: Performed By: #### F T4, VITAD, FETIBC, FERR #### [facility] [address] [place] [address] Dr. Cecilio Gale Basophils/100 WBC (Bld) 0.9 % Normal 0.2-2.0 [facility] Comment on above: Performed By: #### F T4, VITAD, FETIBC, FERR #### [facility] [address] [place] [address] Dr. Cecilio Gale EO # 0.0 103/ul Normal 0.0-0.7 [facility] Comment on above: Performed By: #### F T4, VITAD, FETIBC, FERR #### [facility] [address] [place] [address] Dr. Cecilio Gale Eosinophils/100 WBC (Bld) 0.6 % Critically low 0.9-7.0 [facility] Comment on above: Performed By: #### F T4, VITAD, FETIBC, FERR #### [facility] [address] [place] [address] Dr. Cecilio Gale Erythrocyte distribution width (RBC) [Ratio] 11.8 % Normal 11.0-15.0 [facility] Comment on above: Performed By: #### F T4, VITAD, FETIBC, FERR #### [facility] [address] [place] [address] Dr. Cecilio Gale Hematocrit (Bld) [Volume fraction] 41.3 % Normal 36.0-48.0 [facility] Comment on above: Performed By: #### F T4, VITAD, FETIBC, FERR #### [facility] [address] [place] [address] Dr. Cecilio Gale Hemoglobin (Bld) [Mass/Vol] 14.5 g/dL Normal 12.0-16.0 [facility] Comment on above: Performed By: #### F T4, VITAD, FETIBC, FERR #### [facility] [address] [place] [address] Dr. Cecilio Gale IG # 0.01 10e3/ul Normal 0.00-0.03 [facility] Comment on above: Performed By: #### F T4, VITAD, FETIBC, FERR #### [facility] [address] [place] [address] Dr. Cecilio Gale IG % 0.2 % Normal 0.0-0.5 [facility] Comment on above: Performed By: #### F T4, VITAD, FETIBC, FERR #### [facility] [address] [place] [address] Dr. Cecilio Gale LYMPH # 1.8 103/ul Normal 1.2-3.8 [facility] Comment on above: Performed By: #### F T4, VITAD, FETIBC, FERR #### [facility] [address] [place] [address] Dr. Cecilio Gale Lymphocytes/100 WBC (Bld) 39.1 % Normal 20.5-60.0 [facility] Comment on above: Performed By: #### F T4, VITAD, FETIBC, FERR #### [facility] [address] [place] [address] Dr. Cecilio Gale MANUAL DIFF REQ NO Normal [facility] Comment on above: Performed By: #### F T4, VITAD, FETIBC, FERR #### [facility] [address] [place] [address] Dr. Cecilio Gale MCH (RBC) [Entitic mass] 32.7 pg Normal 26.7-34.0 [facility] Comment on above: Performed By: #### F T4, VITAD, FETIBC, FERR #### [facility] [address] [place] [address] Dr. Cecilio Glae MCHC (RBC) [Mass/Vol] 35.1 g/dL Normal 29.9-35.2 [facility] Comment on above: Performed By: #### F T4, VITAD, FETIBC, FERR #### [facility] [address] [place] [address] Dr. Cecilio Gale MCV (RBC) [Entitic vol] 93.0 fL Normal 81.0-99.0 [facility] Comment on above: Performed By: #### F T4, VITAD, FETIBC, FERR #### [facility] [address] [place] [address] Dr. Cecilio Gale MONO # 0.4 103/ul Normal 0.3-0.8 [facility] Comment on above: Performed By: #### F T4, VITAD, FETIBC, FERR #### [facility] [address] [place] [address] Dr. Ceiclio Gale Monocytes/100 WBC (Bld) 9.2 % Normal 1.7-12.0 [facility] Comment on above: Performed By: #### F T4, VITAD, FETIBC, FERR #### [facility] [address] [place] [address] Dr. Cecilio Gael NEUT # 2.3 103/ul Normal 1.4-6.5 [facility] Comment on above: Performed By: #### F T4, VITAD, FETIBC, FERR #### [facility] [address] [place] [address] Dr. Cecilio Gale Neutrophils/100 WBC (Bld) 50.0 % Normal 43.0-75.0 [facility] Comment on above: Performed By: #### F T4, VITAD, FETIBC, FERR #### [facility] [address] [place] [address] Dr. Cecilio Gale Platelet mean volume (Bld) [Entitic vol] 8.6 fL Critically low 9.5-13.5 [facility] Comment on above: Performed By: #### F T4, VITAD, FETIBC, FERR #### [facility] [address] [place] [address] Dr. Cecilio Gale PLT 354 103/ul Normal 150-450 [facility] Comment on above: Performed By: #### F T4, VITAD, FETIBC, FERR #### [facility] [address] [place] [address] Dr. Cecilio Gale RBC 4.44 106/ul Normal 4.20-5.40 [facility] Comment on above: Performed By: #### F T4, VITAD, FETIBC, FERR #### [facility] [address] [place] [address] Dr. Cecilio Gale WBC 4.7 103/ul Normal 4.0-11.0 [facility] Comment on above: Performed By: #### F T4, VITAD, FETIBC, FERR #### [facility] [address] [place] [address] Dr. Cecilio Gale CULTURE URINEon 01-11-2023 CULTURE URINE Culture Observations : LIGHT GROWTH OF MIXED GENITAL CAMERON. NO POTENTIAL PATHOGENS SEEN. Normal [facility] Comment on above: Performed By: #### F T4, VITAD, FETIBC, FERR #### [facility] [address] [place] [address] Dr. Cecilio Gale FERRITINon 01-11-2023 Ferritin [Mass/Vol] 132.0 ng/mL Normal 8.0-252.0 [facility] Comment on above: Performed By: #### F T4, VITAD, FETIBC, FERR #### [facility] [address] [place] [address] Dr. Cecilio Gale FREE T3on 01-11-2023 FREE T3 2.03 pg/mlL Critically low 2.18-3.98 [facility] Comment on above: Performed By: #### F T4, VITAD, FETIBC, FERR #### [facility] [address] [place] [address] Dr. Cecilio Gale FREE T4on 01-11-2023 Free T4 [Mass/Vol] 0.82 ng/dL Normal 0.76-1.46 [facility] Comment on above: Performed By: #### F T4, VITAD, FETIBC, FERR #### [facility] [address] [place] [address] Dr. Cecilio Gale GLYCOHEMOGLOBIN A1Con 2022 ADA RECOMMENDATION SEE BELOW Normal [facility] Comment on above: Result Comment: ADA RECOMMENDED LIMIT 4.0 - 6.0 ADA THERAPEUTIC TARGET < 7.0 ACTION SUGGESTED > 7.0 Performed By: #### F T4, VITAD, FETIBC, FERR #### [facility] [address] [place] [address] Dr. Cecilio Gale Glucose [Mass/Vol] 103 mg/dL Normal [facility] Comment on above: Performed By: #### F T4, VITAD, FETIBC, FERR #### [facility] [address] [place] [address] Dr. Cecilio Gale HbA1c (Bld) [Mass fraction] 5.2 % Normal 4.5-6.2 [facility] Comment on above: Performed By: #### F T4, VITAD, FETIBC, FERR #### [facility] [address] [place] [address] Dr. Cecilio Gale IRON AND TIBCon 01-11-2023 % SATURATION 44.6 % Normal [facility] Comment on above: Performed By: #### F T4, VITAD, FETIBC, FERR #### [facility] [address] [place] [address] Dr. Cecilio Gale Iron [Mass/Vol] 121.0 ug/dL Normal 50.0-170.0 [facility] Comment on above: Performed By: #### F T4, VITAD, FETIBC, FERR #### [facility] [address] [place] [address] Dr. Cecilio Gale TIBC DIRECT 271.0 ug/dL Normal 250.0-450.0 [facility] Comment on above: Performed By: #### F T4, VITAD, FETIBC, FERR #### [facility] [address] [place] [address] Dr. Cecilio Gale LIPID PROFILEon 01-11-2023 CHOL-HDL RATIO NORM SEE BELOW Normal [facility] Comment on above: Result Comment: 3.3 - 4.4 LOW RISK 4.4 - 7.1 AVERAGE RISK 7.1 - 11.0 MODERATE RISK >11.0 HIGH RISK Performed By: #### F T4, VITAD, FETIBC, FERR #### [facility] [address] [place] [address] Dr. Cecilio Gale Cholesterol [Mass/Vol] 216 mg/dL Critically high <=200 [facility] Comment on above: Performed By: #### F T4, VITAD, FETIBC, FERR #### [facility] [address] [address] [address] Cecilio Glae Cholesterol in HDL [Mass/Vol] 96 mg/dL Critically high 40-60 [facility] Comment on above: Performed By: #### F T4, VITAD, FETIBC, FERR #### [facility] [address] [place] [address] Dr. Cecilio Gale Cholesterol in LDL [Mass/Vol] 103.0 mg/dL Normal [facility] Comment on above: Performed By: #### F T4, VITAD, FETIBC, FERR #### [facility] [address] [address] [address] Cecilio Gale Cholesterol.total/C holesterol in HDL [Mass ratio] 2.3 {ratio} Normal [facility] Comment on above: Performed By: #### F T4, VITAD, FETIBC, FERR #### [facility] [address] [place] [address] Dr. Cecilio Gale HDL NORMAL > or = 60 mg/dl - LO W CARDIOVASCULAR RISK <40 mg/dl - HIGH CARDIOVASCULAR RISK Normal [facility] Comment on above: Performed By: #### F T4, VITAD, FETIBC, FERR #### [facility] [address] [place] [address] Dr. Cecilio Gale LDL CALC NORMAL SEE BELOW Normal [facility] Comment on above: Result Comment: <100 mg/dl OPTIMAL 100 - 129 mg/dl NEAR OR ABOVE OPTIMAL 130 - 159 mg/dl BORDERLINE HIGH 160 - 189 mg/dl HIGH >190 mg/dl VERY HIGH Performed By: #### F T4, VITAD, FETIBC, FERR #### [facility] [address] [place] [address] Dr. Cecilio Gale Triglyceride [Mass/Vol] 86 mg/dL Normal <=150 [facility] Comment on above: Performed By: #### F T4, VITAD, FETIBC, FERR #### [facility] [address] [place] [address] Dr. Cecilio Gale VLDL CALC 17.2 mg/dL Normal [facility] Comment on above: Performed By: #### F T4, VITAD, FETIBC, FERR #### [facility] [address] [place] [address] Dr. Cecilio Gale PROF 14(COMP METB)on 023 Albumin [Mass/Vol] 3.8 g/dL Normal 3.4-5.0 [facility] Comment on above: Performed By: #### F T4, VITAD, FETIBC, FERR #### [facility] [address] [place] [address] Dr. Cecilio Gale Albumin/Globulin [Mass ratio] 1.0 {ratio} Normal [facility] Comment on above: Performed By: #### F T4, VITAD, FETIBC, FERR #### [facility] [address] [place] [address] Dr. Cecilio Gale ALP [Catalytic activity/Vol] 165 U/L Critically high 46-116 [facility] Comment on above: Performed By: #### F T4, VITAD, FETIBC, FERR #### [facility] [address] [place] [address] Dr. Cecilio Gale ALT [Catalytic activity/Vol] 24 U/L Normal 14-59 [facility] Comment on above: Performed By: #### F T4, VITAD, FETIBC, FERR #### [facility] [address] [place] [address] Dr. Cecilio Gale Anion gap [Moles/Vol] 14.6 mmol/L Normal [facility] Comment on above: Performed By: #### F T4, VITAD, FETIBC, FERR #### [facility] [address] [place] [address] Dr. Cecilio Gale AST [Catalytic activity/Vol] 19 U/L Normal 15-37 [facility] Comment on above: Performed By: #### F T4, VITAD, FETIBC, FERR #### [facility] [address] [place] [address] Dr. Cecilio Gale Bilirubin [Mass/Vol] 0.3 mg/dL Normal 0.2-1.0 [facility] Comment on above: Performed By: #### F T4, VITAD, FETIBC, FERR #### [facility] [address] [place] [address] Dr. Cecilio Gale Calcium [Mass/Vol] 8.9 mg/dL Normal 8.5-10.1 [facility] Comment on above: Performed By: #### F T4, VITAD, FETIBC, FERR #### [facility] [address] [place] [address] Dr. Cecilio Gale Chloride [Moles/Vol] 106 mmol/L Normal 98-107 [facility] Comment on above: Performed By: #### F T4, VITAD, FETIBC, FERR #### [facility] [address] [place] [address] Dr. Cecilio Gale CO2 [Moles/Vol] 25.3 mmol/L Normal 21.0-32.0 [facility] Comment on above: Performed By: #### F T4, VITAD, FETIBC, FERR #### [facility] [address] [place] [address] Dr. Cecilio Gale Creatinine [Mass/Vol] 0.72 mg/dL Normal 0.55-1.02 [facility] Comment on above: Performed By: #### F T4, VITAD, FETIBC, FERR #### [facility] [address] [place] [address] Dr. Cecilio Gale EGFR-AF LIBYAN >60 Normal >=60 [facility] Comment on above: Performed By: #### F T4, VITAD, FETIBC, FERR #### [facility] [address] [place] [address] Dr. Cecilio Gale EGFR-NON AF LIBYAN >60 Normal >=60 [facility] Comment on above: Performed By: #### F T4, VITAD, FETIBC, FERR #### [facility] [address] [place] [address] Dr. Ceiclio Gale Globulin (S) [Mass/Vol] 3.7 g/dL Normal [facility] Comment on above: Performed By: #### F T4, VITAD, FETIBC, FERR #### [facility] [address] [place] [address] Dr. Cecilio Gale Glucose [Mass/Vol] 112 mg/dL Critically high 74-106 T [facility] Comment on above: Performed By: #### F T4, VITAD, FETIBC, FERR #### [facility] [address] [place] [address] Dr. Cecilio Gale Potassium [Moles/Vol] 4.0 mmol/L Normal 3.5-5.1 [facility] Comment on above: Performed By: #### F T4, VITAD, FETIBC, FERR #### [facility] [address] [place] [address] Dr. Cecilio Gale Protein [Mass/Vol] 7.5 g/dL Normal 6.4-8.2 [facility] Comment on above: Performed By: #### F T4, VITAD, FETIBC, FERR #### [facility] [address] [place] [address] Dr. Cecilio Gale Sodium [Moles/Vol] 142 mmol/L Normal 136-145 [facility] Comment on above: Performed By: #### F T4, VITAD, FETIBC, FERR #### [facility] [address] [place] [address] Dr. Cecilio Gale Urea nitrogen [Mass/Vol] 9.0 mg/dL Normal 7.0-18.0 [facility] Comment on above: Performed By: #### F T4, VITAD, FETIBC, FERR #### [facility] [address] [place] [address] Dr. Cecilio Gale Urea nitrogen/Creatinine [Mass ratio] 12.5 mg/mg Normal [facility] Comment on above: Performed By: #### F T4, VITAD, FETIBC, FERR #### [facility] [address] [place] [address] Dr. Cecilio Gale TSHon 01-11-2023 TSH 1.685 uIU/mL Normal 0.358-3.740 [facility] Comment on above: Performed By: #### F T4, VITAD, FETIBC, FERR #### [facility] [address] [place] [address] Dr. Cecilio Gale UA RANDOM W/MICROSCOPICon BACTERIA NONE SEEN Normal NONE SEEN [facility] Comment on above: Performed By: #### F T4, VITAD, FETIBC, FERR #### [facility] [address] [place] [address] Dr. Cecilio Gale Bilirubin Ql (U) Negative Normal NEGATIVE [facility] Comment on above: Performed By: #### F T4, VITAD, FETIBC, FERR #### [facility] [address] [place] [address] Dr. Cecilio Gale CAST NONE SEEN Normal NONE SEEN [facility] Comment on above: Performed By: #### F T4, VITAD, FETIBC, FERR #### [facility] [address] [place] [address] Dr. Cecilio Gale Clarity (U) CLEAR Normal CLEAR [facility] Comment on above: Performed By: #### F T4, VITAD, FETIBC, FERR #### [facility] [address] [place] [address] Dr. Cecilio Gale Color (U) LT. YELLOW Normal YELLOW [facility] Comment on above: Performed By: #### F T4, VITAD, FETIBC, FERR #### [facility] [address] [place] [address] Dr. Cecilio Gale Crystals LM Nom (Urine sed) NONE SEEN Normal NONE SEEN [facility] Comment on above: Performed By: #### F T4, VITAD, FETIBC, FERR #### [facility] [address] [place] [address] Dr. Cecilio Gale Epithelial cells LM Ql (Urine sed) FEW Abnormal NONE SEEN /RARE [facility] Comment on above: Performed By: #### F T4, VITAD, FETIBC, FERR #### [facility] [address] [place] [address] Dr. Cecilio Gale Glucose Ql (U) Negative Normal NEGATIVE [facility] Comment on above: Performed By: #### F T4, VITAD, FETIBC, FERR #### [facility] [address] [place] [address] Dr. Cecilio Gale Hemoglobin Ql (U) Negative Normal NEGATIVE [facility] Comment on above: Performed By: #### F T4, VITAD, FETIBC, FERR #### [facility] [address] [address] [address] Cecilio Gale Ketones Ql (U) Negative Normal NEGATIVE [facility] Comment on above: Performed By: #### F T4, VITAD, FETIBC, FERR #### [facility] [address] [address] [address] Cecilio Gale LEUKOCYTES Negative Normal NEGATIVE [facility] Comment on above: Performed By: #### F T4, VITAD, FETIBC, FERR #### [facility] [address] [address] [address] Cecilio Gale MUCOUS NONE SEEN Normal NONE SEEN [facility] Comment on above: Performed By: #### F T4, VITAD, FETIBC, FERR #### [facility] [address] [place] [address] Dr. Cecilio Gale Nitrite Ql (U) Negative Normal NEGATIVE [facility] Comment on above: Performed By: #### F T4, VITAD, FETIBC, FERR #### [facility] [address] [place] [address] Dr. Cecilio Gale pH (U) 7.5 [pH] Normal 5-9 [facility] Comment on above: Performed By: #### F T4, VITAD, FETIBC, FERR #### [facility] [address] [place] [address] Dr. Cecilio Gale RBC NONE SEEN Abnormal 0-2 [facility] Comment on above: Performed By: #### F T4, VITAD, FETIBC, FERR #### [facility] [address] [place] [address] Dr. Cecilio Gale SPEC GRAVITY 1.015 Normal 1.005-<=1.0 25 [facility] Comment on above: Performed By: #### F T4, VITAD, FETIBC, FERR #### [facility] [address] [place] [address] Dr. Cecilio Gale UA PROTEIN Negative Normal NEGATIVE/ TRACE [facility] Comment on above: Performed By: #### F T4, VITAD, FETIBC, FERR #### [facility] [address] [place] [address] Dr. Cecilio Gale Urobilinogen Qn (U) 0.2 {Anita'U}/dL Normal 0.2 - 1. 0 [facility] Comment on above: Performed By: #### F T4, VITAD, FETIBC, FERR #### [facility] [address] [place] [address] Dr. Cecilio Gale WBC NONE SEEN Normal NONE SEEN [facility] Comment on above: Performed By: #### F T4, VITAD, FETIBC, FERR #### [facility] [address] [place] [address] Dr. Cecilio Gale VITAMIN D 25 OHon 01-11-2023 VIT D 25-OH 60.7 ng/mL Normal [facility] Comment on above: Performed By: #### F T4, VITAD, FETIBC, FERR #### [facility] [address] [place] [address] Dr. Cecilio Gale VIT D RANGES SEE BELOW Normal [facility] Comment on above: Result Comment: <20 ng/mL Vit D deficient 20 - <30 ng/mL Vit D insufficient 30 - 100 ng/mL Vit D sufficient >100 ng/mL Potential Toxicity Performed By: #### F T4, VITAD, FETIBC, FERR #### [facility] [address] [place] [address] Dr. Cecilio Gale LACOSAMIDEon 10-14-2022 Lacosamide 5.4 ug/mL Normal 5.0-10.0 [facility] Comment on above: Result Comment: This [...] #### F T4, VITAD, FETIBC, FERR #### [facility] [address] [place] [address] [address] Cecilio Gale LEVETIRACETAM, SERUM OR PLAS MAon 10-12-2022 Levetiracetam, S 26.4 ug/mL Normal 10.0-40.0 [facility] Comment on above: Performed By: #### F T4, VITAD, FETIBC, FERR #### [facility] [address] [address] [address] Cecilio Gale TEGRETOLon 10-08-2022 TEGRETOL <0.5 Critically low 4.0-12.0 [facility] Comment on above: Performed By: #### C ARB #### [facility] [address] [address] [address] Cecilio Gale General Surgery Office/Clini c [...] 50,000 intl units (1.25 mg) oral capsule, [address]15 International_Unit= 1 cap(s), Oral, qWeek Allergies Depakote [...] mRNA BNT-162b2 vax 01/17/2021 Given Prophylaxis Normal [facility] Comment on above: Result Comment: Elec tronically Signed By: MOMO CHAND, Kerry Castelan\.br\Date and Time Signed: 09/27/22 18:54 EST Ambulatory Visit Summaryon 1 11-22-2021 Ambulatory Visit Summary MIKEY NEWTON :1965 Visit Date:09/22/2022 Ambulatory Visit Instructions Your Care Team Attending Physician - Kerry JONES MD Primary Care Physician - Scotty Riuz DO This Is Your Medications List calcium-vitamin [...] malignant neoplasm of colon Vitamin D deficiency [facility] Reminderson 09-22-2022 Reminders - From: Delmy Rebollar LPN To: N - Clinical; Sent: 09/22/2022 15:29:30 EST Show up: 08/09/2025 07:00:00 EDT Subject: colonoscopy recall Due Date/Time: 09/09/2025 07:00:00 EST Reminder/Recall Patient is due for colonoscopy 09/09/2025 due to history of tubular adenoma. Normal [facility] Pathology Noteon 09-11-2022 Pathology Note [id number]#[id number]:127 Normal [facility] Outside Colonoscopyon 2021 Outside Colonoscopy [id number]#1.00CD:127 Normal [facility] Lab Reportson 09-08-2022 Lab Reports [id number]#1.00CD:127 Normal [facility] Covid-19 PCR (CVDTB)on 08-10 SARS-CoV-2 (COVID-19) RNA CAL+probe Ql (Unsp spec) Not detected Normal NOT DETECTED [facility] Comment on above: Result Comment: This test is not yet approved or cleared by the [place] FDA. When there are no FDA-approved or cleared tests available, and other criteria are met, FDA can make tests available under an emergency access mechanism called an Emergency Use Authorization (EUA). The EUA for this test is supported by the Sales Support Rep of Health and Human Service's (HHS's) declaration [...] SARS-CoV-2. Performed By: #### C VDTBH #### [facility] [address] [address] [address] Cecilio Gale Pre-Certification Formon Pre-Certification Form [id number]#[id number]:127 Normal [facility] CBC W Auto Differential pane l (Bld)on 08-21-2022 Basophils (Bld) [#/Vol] 0.05 10*3/uL Normal <0.11 [facility] Comment on above: Order Comment: Speci men Type: BLOOD SPECIMEN Ordering Facility: [facility] Address: [address] [place] [address] Performed By: #### 5 7021-8 #### [facility] CLIA [id number] [address] [place] [address] 43068 Basophils/100 WBC (Bld) 0.8 % Normal [facility] Comment on above: Order Comment: Speci men Type: BLOOD SPECIMEN Ordering Facility: [facility] Address: [address] [place] [address] Performed By: #### 5 7021-8 #### [facility] CLIA [id number] [address] [place] [address] 33213 Differential cell count method Nom (Bld) Auto Normal [facility] Comment on above: Order Comment: Speci men Type: BLOOD SPECIMEN Ordering Facility: [facility] Address: [address] [place] [address] Performed By: #### 5 7021-8 #### [facility] CLIA [id number] [address] [place] [address] 93214 Eosinophils (Bld) [#/Vol] 10*3/uL Normal <0.46 [facility] Comment on above: Order Comment: Speci men Type: BLOOD SPECIMEN Ordering Facility: [facility] Address: [address] [place] [address] Performed By: #### 5 7021-8 #### [facility] CLIA [id number] [address] [place] [address] Eosinophils/100 WBC (Bld) 0.0 % Normal [facility] Comment on above: Order Comment: Speci men Type: BLOOD SPECIMEN Ordering Facility: [facility] Address: [address] [place] [address] Performed By: #### 5 7021-8 #### [facility] CLIA [id number] [address] [place] [address] Erythrocyte distribution width (RBC) [Ratio] 12.1 % Normal 11.5-15.0 [facility] Comment on above: Order Comment: Speci men Type: BLOOD SPECIMEN Ordering Facility: [facility] Address: [address] [place] [address] Performed By: #### 5 7021-8 #### [facility] CLIA [id number] [address] [place] [address] 79209 Hematocrit (Bld) [Volume fraction] 40.8 % Normal 36.0-46.0 [facility] Comment on above: Order Comment: Speci men Type: BLOOD SPECIMEN Ordering Facility: [facility] Address: [address] [place] [address] Performed By: #### 5 7021-8 #### [facility] CLIA [id number] [address] [place] [address] 18202 Hemoglobin (Bld) [Mass/Vol] 14.3 g/dL Normal 11.5-15.5 [facility] Comment on above: Order Comment: Speci men Type: BLOOD SPECIMEN Ordering Facility: [facility] Address: [address] [place] [address] Performed By: #### 5 7021-8 #### [facility] CLIA [id number] [address] [place] [address] 13475 IMMATURE GRAN % 0.2 % Normal [facility] Comment on above: Order Comment: Speci men Type: BLOOD SPECIMEN Ordering Facility: [facility] Address: [address] [place] [address] Performed By: #### 5 7021-8 #### [facility] CLIA [id number] [address] [place] [address] IMMATURE GRAN ABS <0.03 Normal <0.10 [facility] Comment on above: Order Comment: Speci men Type: BLOOD SPECIMEN Ordering Facility: [facility] Address: [address] [place] [address] Performed By: #### 5 7021-8 #### [facility] CLIA [id number] [address] [place] [address] 67158 Lymphocytes (Bld) [#/Vol] 2.64 10*3/uL Normal 1.00-4.00 [facility] Comment on above: Order Comment: Speci men Type: BLOOD SPECIMEN Ordering Facility: [facility] Address: [address] [place] [address] Performed By: #### 5 7021-8 #### [facility] CLIA [id number] [address] [place] [address] 10903 Lymphocytes/100 WBC (Bld) 41.4 % Normal [facility] Comment on above: Order Comment: Speci men Type: BLOOD SPECIMEN Ordering Facility: [facility] Address: [address] [place] [address] Performed By: #### 5 7021-8 #### [facility] CLIA [id number] [address] [place] [address] 61829 MCH (RBC) [Entitic mass] 33.2 pg Normal 26.0-34.0 [facility] Comment on above: Order Comment: Speci men Type: BLOOD SPECIMEN Ordering Facility: [facility] Address: [address] [place], [place] [address] Performed By: #### 5 7021-8 #### [facility] CLIA [id number] [address] [place] [address] 71531 MCHC (RBC) [Mass/Vol] 35.0 g/dL Normal 30.5-36.0 [facility] Comment on above: Order Comment: Speci men Type: BLOOD SPECIMEN Ordering Facility: [facility] Address: [address] [place], [place] [address] Performed By: #### 5 7021-8 #### [facility] CLIA [id number] [address] [place] [address] 47569 MCV (RBC) [Entitic vol] 94.7 fL Normal 80.0-100.0 [facility] Comment on above: Order Comment: Speci men Type: BLOOD SPECIMEN Ordering Facility: [facility] Address: [address] [place], [place] [address] Performed By: #### 5 7021-8 #### [facility] CLIA [id number] [address] [place] [address] 39582 Monocytes (Bld) [#/Vol] 0.61 10*3/uL Normal <0.87 [facility] Comment on above: Order Comment: Speci men Type: BLOOD SPECIMEN Ordering Facility: [facility] Address: [address] [place], [place] [address] Performed By: #### 5 7021-8 #### [facility] CLIA [id number] [address] [place] [address] 07588 Monocytes/100 WBC (Bld) 9.6 % Normal [facility] Comment on above: Order Comment: Speci men Type: BLOOD SPECIMEN Ordering Facility: [facility] Address: [address] [place], [place] [address] Performed By: #### 5 7021-8 #### [facility] CLIA [id number] [address] [place] [address] 62331 Neutrophils (Bld) [#/Vol] 3.06 10*3/uL Normal 1.45-7.50 [facility] Comment on above: Order Comment: Speci men Type: BLOOD SPECIMEN Ordering Facility: [facility] Address: [address] [place], [place] [address] Performed By: #### 5 7021-8 #### [facility] CLIA [id number] [address] [place] [address] Neutrophils/100 WBC (Bld) 48.0 % Normal [facility] Comment on above: Order Comment: Speci men Type: BLOOD SPECIMEN Ordering Facility: [facility] Address: [address] [place] [address] Performed By: #### 5 7021-8 #### [facility] CLIA [id number] [address] [place] [address] Nucleated RBC (Bld) [#/Vol] 10*3/uL Normal <0.01 [facility] Comment on above: Order Comment: Speci men Type: BLOOD SPECIMEN Ordering Facility: [facility] Address: [address] [place] [address] Performed By: #### 5 7021-8 #### [facility] CLIA [id number] [address] [place] [address] 78304 Nucleated RBC/100 WBC (Bld) [Ratio] 0.0 /100 WBC Normal [facility] Comment on above: Order Comment: Speci men Type: BLOOD SPECIMEN Ordering Facility: [facility] Address: [address] [place] [address] Performed By: #### 5 7021-8 #### [facility] CLIA [id number] [address] [place] [address] 69126 Platelet mean volume (Bld) [Entitic vol] 8.3 fL Low 9.0-12.7 [facility] Comment on above: Order Comment: Speci men Type: BLOOD SPECIMEN Ordering Facility: [facility] Address: [address] [place] [address] Performed By: #### 5 7021-8 #### [facility] CLIA [id number] [address] [place] [address] 02088 Platelets (Bld) [#/Vol] 345 10*3/uL Normal 150-400 [facility] Comment on above: Order Comment: Speci men Type: BLOOD SPECIMEN Ordering Facility: [facility] Address: [address] [place] [address] Performed By: #### 5 7021-8 #### [facility] CLIA [id number] [address] [place] [address] 59128 RBC (Bld) [#/Vol] 4.31 10*6/uL Normal 3.90-5.20 [facility] Comment on above: Order Comment: Speci men Type: BLOOD SPECIMEN Ordering Facility: [facility] Address: [address] [place] [address] Performed By: #### 5 7021-8 #### [facility] CLIA [id number] [address] [place] [address] 52568 WBC (Bld) [#/Vol] 6.37 10*3/uL Normal 3.70-11.00 [facility] Comment on above: Order Comment: Speci men Type: BLOOD SPECIMEN Ordering Facility: [facility] Address: [address] [place] [address] Performed By: #### 5 7021-8 #### [facility] CLIA [id number] [address] [place] [address] 61694 Comprehensive metabolic 2000 panelon 08-21-2022 Albumin [Mass/Vol] 4.3 g/dL Normal 3.9-4.9 [facility] Comment on above: Order Comment: Speci men Type: BLOOD SPECIMEN Ordering Facility: [facility] Address: [address] [place] [address] Performed By: #### 2 4323-8 #### [facility] CLIA [id number] [address] [place] [address] 21557 ALP [Catalytic activity/Vol] 167 U/L High 34-123 [facility] Comment on above: Order Comment: Speci men Type: BLOOD SPECIMEN Ordering Facility: [facility] Address: [address] [place] [address] Performed By: #### 2 4323-8 #### [facility] CLIA [id number] [address] [place] [address] 26932 ALT [Catalytic activity/Vol] 13 U/L Normal 7-38 [facility] Comment on above: Order Comment: Speci men Type: BLOOD SPECIMEN Ordering Facility: [facility] Address: [address] [place] [address] Performed By: #### 2 4323-8 #### [facility] CLIA [id number] [address] [place] [address] 42371 Anion gap [Moles/Vol] 9 mmol/L Normal 9-18 [facility] Comment on above: Order Comment: Speci men Type: BLOOD SPECIMEN Ordering Facility: [facility] Address: [address] [place] [address] Performed By: #### 2 4323-8 #### [facility] CLIA [id number] [address] [place] [address] 82051 AST [Catalytic activity/Vol] 16 U/L Normal 13-35 [facility] Comment on above: Order Comment: Speci men Type: BLOOD SPECIMEN Ordering Facility: [facility] Address: [address] [place] [address] Performed By: #### 2 4323-8 #### [facility] CLIA [id number] [address] [place] [address] 47858 Bilirubin [Mass/Vol] 0.3 mg/dL Normal 0.2-1.3 [facility] Comment on above: Order Comment: Speci men Type: BLOOD SPECIMEN Ordering Facility: [facility] Address: [address] [place] [address] Performed By: #### 2 4323-8 #### [facility] CLIA [id number] [address] [place] [address] 31244 Calcium [Mass/Vol] 9.5 mg/dL Normal 8.5-10.2 [facility] Comment on above: Order Comment: Speci men Type: BLOOD SPECIMEN Ordering Facility: [facility] Address: [address] [place] [address] Performed By: #### 2 4323-8 #### [facility] CLIA [id number] [address] [place] [address] Chloride [Moles/Vol] 98 mmol/L Normal 97-105 [facility] Comment on above: Order Comment: Speci men Type: BLOOD SPECIMEN Ordering Facility: [facility] Address: [address] [place] [address] Performed By: #### 2 4323-8 #### [facility] CLIA [id number] [address] [place] [address] 83590 CO2 [Moles/Vol] 28 mmol/L Normal 22-30 [facility] Comment on above: Order Comment: Speci men Type: BLOOD SPECIMEN Ordering Facility: [facility] Address: [address] [place] [address] Performed By: #### 2 4323-8 #### [facility] CLIA [id number] [address] [place] [address] 20369 Creatinine [Mass/Vol] 0.74 mg/dL Normal 0.58-0.96 [facility] Comment on above: Order Comment: Speci men Type: BLOOD SPECIMEN Ordering Facility: [facility] Address: [address] [place] [address] Performed By: #### 2 4323-8 #### [facility] CLIA [id number] [address] [place] [address] 37297 ESTIMATED GLOMERULAR FILTRATION RATE 96 mL/min/1.73m??? Normal >=60 [facility] Comment on above: Order Comment: Speci men Type: BLOOD SPECIMEN Ordering Facility: [facility] Address: [address] [place] [address] Result Comment: Domonique mated Glomerular Filtration Rate [...] GFR. Performed By: #### 2 4323-8 #### [facility] CLIA [id number] [address] [place] [address] 27586 Glucose [Mass/Vol] 110 mg/dL High 74-99 [facility] Comment on above: Order Comment: Jesus bundy Type: BLOOD SPECIMEN Ordering Facility: [facility] Address: [address] [place] [address] Result Comment: The [place] Diabetes Association (ADA) provides guidance for cutoff [...] Standards of Medical Care in Diabetes 2016, [place] [employer]. Diabetes Care. 2016.39(Suppl 1). Performed By: #### 2 4323-8 #### [facility] CLIA [id number] [address] [place] [address] 52799 Potassium [Moles/Vol] 4.6 mmol/L Normal 3.7-5.1 [facility] Comment on above: Order Comment: Jesus bundy Type: BLOOD SPECIMEN Ordering Facility: [facility] Address: [address] [place] [address] Performed By: #### 2 4323-8 #### [facility] CLIA [id number] [address] [place] [address] 43192 Protein [Mass/Vol] 7.1 g/dL Normal 6.3-8.0 [facility] Comment on above: Order Comment: Jesus bundy Type: BLOOD SPECIMEN Ordering Facility: [facility] Address: [address] [place] [address] Performed By: #### 2 4323-8 #### [facility] CLIA [id number] [address] [place] [address] Sodium [Moles/Vol] 135 mmol/L Low 136-144 [facility] Comment on above: Order Comment: Speci men Type: BLOOD SPECIMEN Ordering Facility: [facility] Address: [address] [place] [address] Performed By: #### 2 4323-8 #### [facility] CLIA [id number] [address] [place] [address] 82888 Urea nitrogen [Mass/Vol] 10 mg/dL Normal 7-21 [facility] Comment on above: Order Comment: Speci men Type: BLOOD SPECIMEN Ordering Facility: [facility] Address: [address] [place] [address] Performed By: #### 2 4323-8 #### [facility] CLIA [id number] [address] [place] [address] 76894 Ferritin SerPl-ncon 2021 Ferritin [Mass/Vol] 196.0 ng/mL Normal 14.7-205.1 [facility] Comment on above: Order Comment: Speci men Type: BLOOD SPECIMEN Ordering Facility: [facility] Address: [address] [place] [address] Performed By: #### 5 0190-8, 6-4 #### [facility] CLIA [id number] [address] [place] [address] [place] Iron and Iron binding capaci ty panelon 08-21-2022 Iron [Mass/Vol] 133 ug/dL Normal 41-186 [facility] Comment on above: Order Comment: Speci men Type: BLOOD SPECIMEN Ordering Facility: [facility] Address: [address] [place] [address] Performed By: #### 5 0190-8, 2276-4 #### [facility] CLIA [id number] [address] [place] [address] [place] Iron binding capacity [Mass/Vol] 280 ug/dL Normal 232-386 [facility] Comment on above: Order Comment: Speci men Type: BLOOD SPECIMEN Ordering Facility: [facility] Address: [address] [place] [address] Performed By: #### 5 0190-8, 2276-4 #### [facility] CLIA [id number] [address] [place] [address] OF [facility] Iron/TIBC [Molar ratio] 47.5 % Normal 15.0-57.0 [facility] Comment on above: Order Comment: Speci men Type: BLOOD SPECIMEN Ordering Facility: [facility] Address: [address] [place] [address] Performed By: #### 5 0190-8, 6-4 #### [facility] CLIA [id number] [address] [place] [address] [place] Consent for Procedure/Surger yon 08-05-2022 Consent for Procedure/Surgery [id number]:127 Normal [facility] Ambulatory Visit Summaryon 0 08-04-2022 [...] neoplasm of colon Vitamin D deficiency Normal [facility] Comprehensive metabolic 2000 panelon 07-30-2022 Albumin [Mass/Vol] 4.4 g/dL 3.9 - 4.9 g/dL [facility] ALP [Catalytic activity/Vol] 166 U/L High 34 - 123 U/L [facility] ALT [Catalytic activity/Vol] 18 U/L 7 - 38 U/L [facility] Anion gap [Moles/Vol] 11 mmol/L 9 - 18 mmol/L [facility] AST [Catalytic activity/Vol] 21 U/L 13 - 35 U/L [facility] Bilirubin [Mass/Vol] 0.4 mg/dL 0.2 - 1.3 mg/dL [facility] Calcium [Mass/Vol] 9.5 mg/dL 8.5 - 10. 2 mg/dL [facility] Chloride [Moles/Vol] 98 mmol/L 97 - 105 mmol/L [facility] CO2 [Moles/Vol] 25 mmol/L 22 - 30 mmol/L [facility] Creatinine [Mass/Vol] 0.66 mg/dL 0.58 - 0.96 mg/dL [facility] Estimated Glomerular Filtration Rate 104 mL/min/1.73m >=60 mL/min/1.73 m [facility] Glucose [Mass/Vol] 91 mg/dL 74 - 99 mg/dL [facility] Potassium [Moles/Vol] 4.8 mmol/L 3.7 - 5.1 mmol/L [facility] Protein [Mass/Vol] 7.3 g/dL 6.3 - 8.0 g/dL [facility] Sodium [Moles/Vol] 134 mmol/L Low 136 - 144 mmol/L [facility] Urea nitrogen [Mass/Vol] 8 mg/dL 7 - 21 mg/dL [facility] FERRITIN BLDon 07-30-2022 Ferritin [Mass/Vol] 176.0 ng/mL 14.7 - 205.1 ng/mL [facility] Iron and Iron binding capaci ty panelon 07-30-2022 Iron [Mass/Vol] 149 ug/dL 41 - 186 ug/dL [facility] Iron binding capacity [Mass/Vol] 273 ug/dL 232 - 386 ug/dL [facility] Iron/TIBC [Molar ratio] 54.6 % 15.0 - 57.0 % [facility] CBC W Auto Differential pane l (Bld)on 07-29-2022 Basophils (Bld) [#/Vol] 0.05 10*3/uL Normal <0.11 [facility] Comment on above: Order Comment: Speci men Type: BLOOD SPECIMEN Ordering Facility: [facility] Address: [address] [facility] [place] [address] Performed By: #### 5 7021-8 #### [facility] CLIA [id number] [address] [place] [address] 63831 Basophils/100 WBC (Bld) 0.9 % [facility] Comment on above: Order Comment: Speci men Type: BLOOD SPECIMEN Ordering Facility: [facility] Address: [address] [place] [address] Performed By: #### 5 7021-8 #### [facility] CLIA [id number] [address] [place] [address] 78552 Differential cell count method Nom (Bld) Auto [facility] Comment on above: Order Comment: Speci men Type: BLOOD SPECIMEN Ordering Facility: [facility] Address: [address] [place] [address] Performed By: #### 5 7021-8 #### [facility] CLIA [id number] [address] [place] [address] 11925 Eosinophils (Bld) [#/Vol] 10*3/uL Normal <0.46 [facility] Comment on above: Order Comment: Speci men Type: BLOOD SPECIMEN Ordering Facility: [facility] Address: [address] [place] [address] Performed By: #### 5 7021-8 #### [facility] CLIA [id number] [address] [place] [address] 37480 Eosinophils/100 WBC (Bld) 0.0 % [facility] Comment on above: Order Comment: Speci men Type: BLOOD SPECIMEN Ordering Facility: [facility] Address: [address] [place] [address] Performed By: #### 5 7021-8 #### [facility] CLIA [id number] [address] [place] [address] 88176 Erythrocyte distribution width (RBC) [Ratio] 12.1 % Normal 11.5-15.0 [facility] Comment on above: Order Comment: Speci men Type: BLOOD SPECIMEN Ordering Facility: [facility] Address: [address] [place] [address] Performed By: #### 5 7021-8 #### [facility] CLIA [id number] [address] [place] [address] 78716 Hematocrit (Bld) [Volume fraction] 41.6 % Normal 36.0-46.0 [facility] Comment on above: Order Comment: Speci men Type: BLOOD SPECIMEN Ordering Facility: [facility] Address: [address] [place] [address] Performed By: #### 5 7021-8 #### [facility] CLIA [id number] [address] [place] [address] 74976 Hemoglobin (Bld) [Mass/Vol] 14.5 g/dL Normal 11.5-15.5 [facility] Comment on above: Order Comment: Speci men Type: BLOOD SPECIMEN Ordering Facility: [facility] Address: [address] [place] [address] Performed By: #### 5 7021-8 #### [facility] CLIA [id number] [address] [place] [address] 99497 IMMATURE GRAN % 0.3 % [facility] Comment on above: Order Comment: Speci men Type: BLOOD SPECIMEN Ordering Facility: [facility] Address: [address] [place] [address] Performed By: #### 5 7021-8 #### [facility] CLIA [id number] [address] [place] [address] 96857 IMMATURE GRAN ABS <0.03 Normal <0.10 [facility] Comment on above: Order Comment: Speci men Type: BLOOD SPECIMEN Ordering Facility: [facility] Address: [address] [place] [address] Performed By: #### 5 7021-8 #### [facility] CLIA [id number] [address] [place] [address] 74489 Lymphocytes (Bld) [#/Vol] 2.09 10*3/uL Normal 1.00-4.00 [facility] Comment on above: Order Comment: Speci men Type: BLOOD SPECIMEN Ordering Facility: [facility] Address: [address] [place] [address] Performed By: #### 5 7021-8 #### [facility] CLIA [id number] [address] [place] [address] 73486 Lymphocytes/100 WBC (Bld) 36.0 % [facility] Comment on above: Order Comment: Speci men Type: BLOOD SPECIMEN Ordering Facility: [facility] Address: [address] [place] [address] Performed By: #### 5 7021-8 #### [facility] CLIA [id number] [address] [place] [address] 31032 MCH (RBC) [Entitic mass] 33.0 pg Normal 26.0-34.0 [facility] Comment on above: Order Comment: Speci men Type: BLOOD SPECIMEN Ordering Facility: [facility] Address: [address] [place] [address] Performed By: #### 5 7021-8 #### [facility] CLIA [id number] [address] [place] [address] 37462 MCHC (RBC) [Mass/Vol] 34.9 g/dL Normal 30.5-36.0 [facility] Comment on above: Order Comment: Speci men Type: BLOOD SPECIMEN Ordering Facility: [facility] Address: [address] [place] [address] Performed By: #### 5 7021-8 #### [facility] CLIA [id number] [address] [place] [address] 56334 MCV (RBC) [Entitic vol] 94.8 fL Normal 80.0-100.0 [facility] Comment on above: Order Comment: Speci men Type: BLOOD SPECIMEN Ordering Facility: [facility] Address: [address] [place] [address] Performed By: #### 5 7021-8 #### [facility] CLIA [id number] [address] [place] [address] 90188 Monocytes (Bld) [#/Vol] 0.44 10*3/uL Normal <0.87 [facility] Comment on above: Order Comment: Speci men Type: BLOOD SPECIMEN Ordering Facility: [facility] Address: [address] [place] [address] Performed By: #### 5 7021-8 #### [facility] CLIA [id number] [address] [place] [address] 89948 Monocytes/100 WBC (Bld) 7.6 % [facility] Comment on above: Order Comment: Speci men Type: BLOOD SPECIMEN Ordering Facility: [facility] Address: [address] [place] [address] Performed By: #### 5 7021-8 #### [facility] CLIA [id number] [address] [place] [address] 38373 Neutrophils (Bld) [#/Vol] 3.21 10*3/uL Normal 1.45-7.50 [facility] Comment on above: Order Comment: Speci men Type: BLOOD SPECIMEN Ordering Facility: [facility] Address: [address] [place] [address] Performed By: #### 5 7021-8 #### [facility] CLIA [id number] [address] [place] [address] 95380 Neutrophils/100 WBC (Bld) 55.2 % [facility] Comment on above: Order Comment: Speci men Type: BLOOD SPECIMEN Ordering Facility: [facility] Address: [address] [place], [place] [address] Performed By: #### 5 7021-8 #### [facility] CLIA [id number] [address] [place] [address] 80946 Nucleated RBC (Bld) [#/Vol] 10*3/uL Normal <0.01 [facility] Comment on above: Order Comment: Speci men Type: BLOOD SPECIMEN Ordering Facility: [facility] Address: [address] [place], [place] [address] Performed By: #### 5 7021-8 #### [facility] CLIA [id number] [address] [place] [address] 33042 Nucleated RBC/100 WBC (Bld) [Ratio] 0.0 /100 WBC [facility] Comment on above: Order Comment: Speci men Type: BLOOD SPECIMEN Ordering Facility: [facility] Address: [address] [place] [address] Performed By: #### 5 7021-8 #### [facility] CLIA [id number] [address] [place] [address] 50083 Platelet mean volume (Bld) [Entitic vol] 8.6 fL Low 9.0-12.7 [facility] Comment on above: Order Comment: Speci men Type: BLOOD SPECIMEN Ordering Facility: [facility] Address: [address] [place] [address] Performed By: #### 5 7021-8 #### [facility] CLIA [id number] [address] [place] [address] 45164 Platelets (Bld) [#/Vol] 311 10*3/uL Normal 150-400 [facility] Comment on above: Order Comment: Speci men Type: BLOOD SPECIMEN Ordering Facility: [facility] Address: [address] [place] [address] Performed By: #### 5 7021-8 #### [facility] CLIA [id number] [address] [place] [address] 33525 RBC (Bld) [#/Vol] 4.39 10*6/uL Normal 3.90-5.20 [facility] Comment on above: Order Comment: Speci men Type: BLOOD SPECIMEN Ordering Facility: [facility] Address: [address] [place], [place] [address] Performed By: #### 5 7021-8 #### [facility] CLIA [id number] [address] [place] [address] 66089 WBC (Bld) [#/Vol] 5.81 10*3/uL Normal 3.70-11.00 [facility] Comment on above: Order Comment: Speci men Type: BLOOD SPECIMEN Ordering Facility: [facility] Address: [address] [place], [place] [address], [place] [address] Performed By: #### 5 7021-8 #### [facility] CLIA [id number] [address] [place] [address] 40996 Abs Immature Gran <0.10 k/uL [facility] Basophils (Bld) [#/Vol] 0.05 10*3/uL <0.11 k/uL [facility] Basophils/100 WBC (Bld) 0.9 % [facility] Differential cell count method Nom (Bld) Auto [facility] Eosinophils (Bld) [#/Vol] <0.46 k/uL [facility] Eosinophils/100 WBC (Bld) 0.0 % [facility] Erythrocyte distribution width (RBC) [Ratio] 12.1 % 11.5 - 15.0 % [facility] Hematocrit (Bld) [Volume fraction] 41.6 % 36.0 - 46.0 % [facility] Hemoglobin (Bld) [Mass/Vol] 14.5 g/dL 11.5 - 15.5 g/dL [facility] Immature Gran % 0.3 % [facility] Lymphocytes (Bld) [#/Vol] 2.09 10*3/uL 1.00 - 4.00 k/uL [facility] Lymphocytes/100 WBC (Bld) 36.0 % [facility] MCH (RBC) [Entitic mass] 33.0 pg 26.0 - 34.0 pg [facility] MCHC (RBC) [Mass/Vol] 34.9 g/dL 30.5 - 36.0 g/dL [facility] MCV (RBC) [Entitic vol] 94.8 fL 80.0 - 100.0 fL [facility] Monocytes (Bld) [#/Vol] 0.44 10*3/uL <0.87 k/uL [facility] Monocytes/100 WBC (Bld) 7.6 % [facility] Neutrophils (Bld) [#/Vol] 3.21 10*3/uL 1.45 - 7.50 k/uL [facility] Neutrophils/100 WBC (Bld) 55.2 % [facility] Nucleated RBC (Bld) [#/Vol] <0.01 k/uL [facility] Nucleated RBC/100 WBC (Bld) [Ratio] 0.0 /100 WBC [facility] Platelet mean volume (Bld) [Entitic vol] 8.6 fL Low 9.0 - 12.7 fL [facility] Platelets (Bld) [#/Vol] 311 10*3/uL 150 - 400 k/uL [facility] RBC (Bld) [#/Vol] 4.39 10*6/uL 3.90 - 5.2 0 m/uL [facility] WBC (Bld) [#/Vol] 5.81 10*3/uL 3.70 - 11.00 k/uL [facility] CNOVSPon 07-29-2022 CNOVSP Visit (SP) Office (H EMASA) MIKEY NEWTON ([id number]) 1965 F Date Time Provider Department 07/29/22 11:00 AM RICCI GARCIA During your visit today, we recorded the following information about you: Temperature Pulse Respiration Blood pressure 97.1 degrees 83/minute 16/minute 152/89 Weight Height 123 kg 1.651 m Ricci Garcia MD 07/30/2022 12:33 PM Signed NAME: Mikey Newton CLINIC NO.: [id number] DATE OF SERVICE: July 29, 2022 Referring [...] COLONSCOPY SCR (more content not included)... [facility] Comprehensive metabolic 2000 panelon 07-29-2022 Albumin [Mass/Vol] 4.4 g/dL Normal 3.9-4.9 [facility] Comment on above: Order Comment: Jesus bundy Type: BLOOD SPECIMEN Ordering Facility: [facility] Address: [address] [place] [address] Performed By: #### 2 4323-8 #### [facility] CLIA [id number] [address] [place] [address] [place] ALP [Catalytic activity/Vol] 166 U/L High 34-123 [facility] Comment on above: Order Comment: Jesus bundy Type: BLOOD SPECIMEN Ordering Facility: [facility] Address: [address] [place] [address] Performed By: #### 2 4323-8 #### [facility] CLIA [id number] [facility] [place] [address] [place] ALT [Catalytic activity/Vol] 18 U/L Normal 7-38 [facility] Comment on above: Order Comment: Speci men Type: BLOOD SPECIMEN Ordering Facility: [facility] Address: [address] [place] [address] Performed By: #### 2 4323-8 #### [facility] CLIA [id number] [address] [place] [address] [place] Anion gap [Moles/Vol] 11 mmol/L Normal 9-18 [facility] Comment on above: Order Comment: Speci men Type: BLOOD SPECIMEN Ordering Facility: [facility] Address: [address] [place], [place] [address] Performed By: #### 2 4323-8 #### [facility] CLIA [id number] [address] [place] [address] [place] AST [Catalytic activity/Vol] 21 U/L Normal 13-35 [facility] Comment on above: Order Comment: Speci men Type: BLOOD SPECIMEN Ordering Facility: [facility] Address: [address] [place], [place] [address] Performed By: #### 2 4323-8 #### [facility] CLIA [id number] [address] [place] [address] [place] Bilirubin [Mass/Vol] 0.4 mg/dL Normal 0.2-1.3 [facility] Comment on above: Order Comment: Speci men Type: BLOOD SPECIMEN Ordering Facility: [facility] Address: [address] [place], [place] [address] Performed By: #### 2 4323-8 #### [facility] CLIA [id number] [address] [place] [address] [place] Calcium [Mass/Vol] 9.5 mg/dL Normal 8.5-10.2 [facility] Comment on above: Order Comment: Speci men Type: BLOOD SPECIMEN Ordering Facility: [facility] Address: [address] [place] [address] Performed By: #### 2 4323-8 #### [facility] CLIA [id number] [address] [place] [address] [place] Chloride [Moles/Vol] 98 mmol/L Normal 97-105 [facility] Comment on above: Order Comment: Speci men Type: BLOOD SPECIMEN Ordering Facility: [facility] Address: [address] [place] [address] Performed By: #### 2 4323-8 #### [facility] CLIA [id number] [address] [place] [address] [place] CO2 [Moles/Vol] 25 mmol/L Normal 22-30 [facility] Comment on above: Order Comment: Speci men Type: BLOOD SPECIMEN Ordering Facility: [facility] Address: [address] [place], [place] [address] Performed By: #### 2 4323-8 #### [facility] CLIA [id number] [address] [place] [address] [place] Creatinine [Mass/Vol] 0.66 mg/dL Normal 0.58-0.96 [facility] Comment on above: Order Comment: Speci men Type: BLOOD SPECIMEN Ordering Facility: [facility] Address: [address] [place], [place] [address] Performed By: #### 2 4323-8 #### [facility] CLIA [id number] [address] [place] [address] [place] ESTIMATED GLOMERULAR FILTRATION RATE 104 mL/min/1.73m??? Normal >=60 [facility] Comment on above: Order Comment: Speci men Type: BLOOD SPECIMEN Ordering Facility: [facility] Address: [address] [id number] Result Comment: Domonique mated Glomerular Filtration Rate [...] GFR. Performed By: #### 2 4323-8 #### [facility] CLIA [id number] [address] [place] [address] [place] Glucose [Mass/Vol] 91 mg/dL Normal 74-99 [facility] Comment on above: Order Comment: Jesus bundy Type: BLOOD SPECIMEN Ordering Facility: [facility] Address: [address] [place] [address] Result Comment: The [place] Diabetes Association (ADA) provides guidance for cutoff [...] Standards of Medical Care in Diabetes 2016, [place] [employer]. Diabetes Care. 2016.39(Suppl 1). Performed By: #### 2 4323-8 #### [facility] CLIA [id number] [address] [place] [address] [place] Potassium [Moles/Vol] 4.8 mmol/L Normal 3.7-5.1 [facility] Comment on above: Order Comment: Jesus bundy Type: BLOOD SPECIMEN Ordering Facility: [facility] Address: [address] [place], [place] [address] Performed By: #### 2 4323-8 #### [facility] CLIA [id number] [address] [place] [address] [place] Protein [Mass/Vol] 7.3 g/dL Normal 6.3-8.0 [facility] Comment on above: Order Comment: Speci men Type: BLOOD SPECIMEN Ordering Facility: [facility] Address: [address] [place] [address] Performed By: #### 2 4323-8 #### [facility] CLIA [id number] [address] [place] [address] [place] Sodium [Moles/Vol] 134 mmol/L Low 136-144 [facility] Comment on above: Order Comment: Speci men Type: BLOOD SPECIMEN Ordering Facility: [facility] Address: [address] [place] [address] Performed By: #### 2 4323-8 #### [facility] CLIA [id number] [address] [place] [address] [place] Urea nitrogen [Mass/Vol] 8 mg/dL Normal 7-21 [facility] Comment on above: Order Comment: Speci men Type: BLOOD SPECIMEN Ordering Facility: [facility] Address: [address] [place] [address] Performed By: #### 2 4323-8 #### [facility] CLIA [id number] [address] [place] [address] [place] Ferritin SerPl-mCncon 2021 Ferritin [Mass/Vol] 176.0 ng/mL Normal 14.7-205.1 [facility] Comment on above: Order Comment: Speci men Type: BLOOD SPECIMEN Ordering Facility: [facility] Address: [address] [place] [address] Performed By: #### 2 276-4, 04812-9 #### [facility] CLIA [id number] [address] [place] [address] [place] HFE (HEMOCHROMATOSIS)on 07-10 INTERPRETATION (HEMDNA) [facility] Comment on above: Order Comment: Speci men Type: BLOOD SPECIMEN Ordering Facility: [facility] Address: [address] [place] [phone] Result Comment: HFE (Hemochromatosis) Laboratory Accession Number: [id number] Result: C282Y: LOLA H63D: WT S65C: WT Interpretation: 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 Disclaimer: This test was developed and its performance characteristics determined by [facility]'s Nishant JTete [facility] ([facility]). It has not been cleared or approved by the FDA. [facility] is regulated under CLIA as certified to perform high- complexity testing. This test is used for clinical purposes. It should not be regarded as investigational or for research. Testing and interpretation performed at [facility], [address] [place] [address]. CLIA Number: [id number] As reviewed by Joshua Mendoza, PhD, FACMG Performed By: #### H EMDNA #### [facility] CLIA [id number] [address] [place] [address] [place] Iron and Iron binding capaci ty panelon 07-29-2022 Iron [Mass/Vol] 149 ug/dL Normal 41-186 [facility] Comment on above: Order Comment: Speci men Type: BLOOD SPECIMEN Ordering Facility: [facility] Address: [address] [place] [address] Performed By: #### 2 276-4, 67721-7 #### [facility] CLIA [id number] [address] [place] [address] [place] Iron binding capacity [Mass/Vol] 273 ug/dL Normal 232-386 [facility] Comment on above: Order Comment: Speci men Type: BLOOD SPECIMEN Ordering Facility: [facility] Address: [address] [place] [address] Performed By: #### 2 276-4, 80532-1 #### [facility] CLIA [id number] [address] [place] [address] [place] Iron/TIBC [Molar ratio] 54.6 % Normal 15.0-57.0 [facility] Comment on above: Order Comment: Speci men Type: BLOOD SPECIMEN Ordering Facility: [facility] Address: [address] [place] [address] Performed By: #### 2 276-4, 50586-7 #### [facility] CLIA [id number] [address] [place] [address] [place] UA RANDOM W/MICROSCOPICon BACTERIA NONE SEEN Normal NONE SEEN [facility] Comment on above: Performed By: #### F T4, VITAD, FETIBC, FERR #### [facility] [address] [address] [address] Cecilio Gale Bilirubin Ql (U) Negative Normal NEGATIVE [facility] Comment on above: Performed By: #### F T4, VITAD, FETIBC, FERR #### [facility] [address] [place] [address] Dr. Cecilio Gale CAST NONE SEEN Normal NONE SEEN [facility] Comment on above: Performed By: #### F T4, VITAD, FETIBC, FERR #### [facility] [address] [address] [address] Cecilio Gale Clarity (U) CLEAR Normal CLEAR [facility] Comment on above: Performed By: #### F T4, VITAD, FETIBC, FERR #### [facility] [address] [address] [address] Cecilio Gale Color (U) LT. YELLOW Normal YELLOW [facility] Comment on above: Performed By: #### F T4, VITAD, FETIBC, FERR #### [facility] [address] [place] [address] Dr. Cecilio Gale Crystals LM Nom (Urine sed) NONE SEEN Normal NONE SEEN [facility] Comment on above: Performed By: #### F T4, VITAD, FETIBC, FERR #### [facility] [address] [place] [address] Dr. Cecilio Gale Epithelial cells LM Ql (Urine sed) FEW Abnormal NONE SEEN /RARE [facility] Comment on above: Performed By: #### F T4, VITAD, FETIBC, FERR #### [facility] [address] [place] [address] Dr. Cecilio Gale Glucose Ql (U) Negative Normal NEGATIVE [facility] Comment on above: Performed By: #### F T4, VITAD, FETIBC, FERR #### [facility] [address] [place] [address] Dr. Cecilio Gale Hemoglobin Ql (U) Negative Normal NEGATIVE [facility] Comment on above: Performed By: #### F T4, VITAD, FETIBC, FERR #### [facility] [address] [place] [address] Dr. Cecilio Gale Ketones Ql (U) Negative Normal NEGATIVE [facility] Comment on above: Performed By: #### F T4, VITAD, FETIBC, FERR #### [facility] [address] [place] [address] Dr. Cecilio Gale LEUKOCYTES Negative Normal NEGATIVE [facility] Comment on above: Performed By: #### F T4, VITAD, FETIBC, FERR #### [facility] [address] [place] [address] Dr. Cecilio Gale MUCOUS NONE SEEN Normal NONE SEEN [facility] Comment on above: Performed By: #### F T4, VITAD, FETIBC, FERR #### [facility] [address] [place] [address] Dr. Cecilio Gale Nitrite Ql (U) Negative Normal NEGATIVE [facility] Comment on above: Performed By: #### F T4, VITAD, FETIBC, FERR #### [facility] [address] [place] [address] Dr. Cecilio Gale pH (U) 7.0 [pH] Normal 5-9 [facility] Comment on above: Performed By: #### F T4, VITAD, FETIBC, FERR #### [facility] [address] [place] [address] Dr. Cecilio Gale RBC NONE SEEN Abnormal 0-2 [facility] Comment on above: Performed By: #### F T4, VITAD, FETIBC, FERR #### [facility] [address] [place] [address] Dr. Cecilio Gale SPEC GRAVITY 1.010 Normal 1.005-<=1.0 25 [facility] Comment on above: Performed By: #### F T4, VITAD, FETIBC, FERR #### [facility] [address] [place] [address] Dr. Cecilio Gale UA PROTEIN Negative Normal NEGATIVE/ TRACE [facility] Comment on above: Performed By: #### F T4, VITAD, FETIBC, FERR #### [facility] [address] [place] [address] Dr. Cecilio Gale Urobilinogen Qn (U) 0.2 {Anita'U}/dL Normal 0.2 - 1. 0 [facility] Comment on above: Performed By: #### F T4, VITAD, FETIBC, FERR #### [facility] [address] [place] [address] Dr. Cecilio Gale WBC NONE SEEN Normal NONE SEEN [facility] Comment on above: Performed By: #### F T4, VITAD, FETIBC, FERR #### [facility] [address] [place] [address] Dr. Cecilio Gale Physician Referralon 022 Physician Referral [id number] Normal [facility] ALKP ISOENZYMESon 07-10-2022 ALP [Catalytic activity/Vol] 159 U/L Critically high 44-121 [facility] Comment on above: Performed By: #### A LKPISO #### [facility] [address] [place] [address] Dr. Cecilio Gale Bone Fraction: 36 % Normal 14-68 [facility] Comment on above: Performed By: #### A LKPISO #### [facility] [address] [place] [address] Dr. Cecilio Gale Intestinal Frac.: 4 % Normal 0-18 [facility] Comment on above: Performed By: #### A LKPISO #### [facility] [address] [place] [address] Dr. Cecilio Gale Liver Fraction: 60 % Normal 18-85 [facility] Comment on above: Performed By: #### A LKPISO #### [facility] [address] [place] [address] Dr. Cecilio Gale VIT D 25-OH LABCORPon 2021 Vitamin D, 25-Hydroxy 50.4 ng/mL Normal 30.0-100.0 [facility] Comment on above: Result Comment: Millie min D deficiency has been defined by the [employer] and an Endocrine Society practice guideline as a level of serum 25-OH vitamin D less than 20 ng/mL (1,2). The Endocrine Society went on to further define vitamin D insufficiency as a level between 21 and 29 ng/mL (2). 1. IOM ([employer]ione[employer]). 2010. Dietary reference intakes for calcium and D. [place]: The National Academies Press. 2. Sujatha MF, Vaishali NC, Larisa AZAR, et al. Evaluation, treatment, and prevention of vitamin D deficiency: an Endocrine Society clinical practice guideline. JCEM. 2010; 96(7):1911-30. Performed By: #### F T4, VITAD, FETIBC, FERR #### [facility] [address] [place] [address] Dr. Cecilio Gale CBC AUTO DIFFon 07-08-2022 BASO # 0.0 103/ul Normal 0.0-0.1 [facility] Comment on above: Performed By: #### C BC #### [facility] [address] [place] [address] Dr. Cecilio Gale Basophils/100 WBC (Bld) 0.6 % Normal 0.2-2.0 [facility] Comment on above: Performed By: #### C BC #### [facility] [address] [place] [address] Dr. Cecilio Gale EO # 0.0 103/ul Normal 0.0-0.7 [facility] Comment on above: Performed By: #### C BC #### [facility] [address] [place] [address] Dr. Cecilio Gale Eosinophils/100 WBC (Bld) 0.0 % Critically low 0.9-7.0 [facility] Comment on above: Performed By: #### C BC #### [facility] [address] [place] [address] Dr. Cecilio Gale Erythrocyte distribution width (RBC) [Ratio] 11.8 % Normal 11.0-15.0 [facility] Comment on above: Performed By: #### C BC #### [facility] [address] [place] [address] Dr. Cecilio Gale Hematocrit (Bld) [Volume fraction] 40.2 % Normal 36.0-48.0 [facility] Comment on above: Performed By: #### C BC #### [facility] [address] [place] [address] Dr. Cecilio Gale Hemoglobin (Bld) [Mass/Vol] 14.5 g/dL Normal 12.0-16.0 [facility] Comment on above: Performed By: #### C BC #### [facility] [address] [place] [address] Dr. Cecilio Gale IG # 0.01 10e3/ul Normal 0.00-0.03 [facility] Comment on above: Performed By: #### C BC #### [facility] [address] [place] [address] Dr. Cecilio Gale IG % 0.2 % Normal 0.0-0.5 [facility] Comment on above: Performed By: #### C BC #### [facility] [address] [place] [address] Dr. Cecilio Gale LYMPH # 2.1 103/ul Normal 1.2-3.8 [facility] Comment on above: Performed By: #### C BC #### [facility] [address] [place] [address] Dr. Cecilio Gale Lymphocytes/100 WBC (Bld) 45.9 % Normal 20.5-60.0 [facility] Comment on above: Performed By: #### C BC #### [facility] [address] [place] [address] Dr. Cecilio aGle MANUAL DIFF REQ NO Normal [facility] Comment on above: Performed By: #### C BC #### [facility] [address] [place] [address] Dr. Cecilio Gale MCH (RBC) [Entitic mass] 33.0 pg Normal 26.7-34.0 [facility] Comment on above: Performed By: #### C BC #### [facility] [address] [place] [address] Dr. Cecilio Gale MCHC (RBC) [Mass/Vol] 36.1 g/dL Critically high 29.9-35.2 [facility] Comment on above: Performed By: #### C BC #### [facility] [address] [place] [address] Dr. Cecilio Gale MCV (RBC) [Entitic vol] 91.6 fL Normal 81.0-99.0 [facility] Comment on above: Performed By: #### C BC #### [facility] [address] [address] [address] Cecilio Gale MONO # 0.4 103/ul Normal 0.3-0.8 [facility] Comment on above: Performed By: #### C BC #### [facility] [address] [place] [address] Dr. Cecilio Gale Monocytes/100 WBC (Bld) 8.9 % Normal 1.7-12.0 [facility] Comment on above: Performed By: #### C BC #### [facility] [address] [place] [address] Dr. Cecilio Gale NEUT # 2.1 103/ul Normal 1.4-6.5 [facility] Comment on above: Performed By: #### C BC #### [facility] [address] [place] [address] Dr. Cecilio Gale Neutrophils/100 WBC (Bld) 44.4 % Normal 43.0-75.0 [facility] Comment on above: Performed By: #### C BC #### [facility] [address] [place] [address] Dr. Cecilio Gale Platelet mean volume (Bld) [Entitic vol] 8.4 fL Critically low 9.5-13.5 [facility] Comment on above: Performed By: #### C BC #### [facility] [address] [place] [address] Dr. Cecilio Gale PLT 349 103/ul Normal 150-450 [facility] Comment on above: Performed By: #### C BC #### [facility] [address] [place] [address] Dr. Cecilio Gale RBC 4.39 106/ul Normal 4.20-5.40 [facility] Comment on above: Performed By: #### C BC #### [facility] [address] [place] [address] Dr. Cecilio Gale WBC 4.6 103/ul Normal 4.0-11.0 [facility] Comment on above: Performed By: #### C BC #### [facility] [address] [place] [address] Dr. Cecilio Gale CULTURE URINEon 07-08-2022 CULTURE URINE Culture Observations : MODERATE GROWTH OF MIXED GENITAL CAMERON. NO POTENTIAL PATHOGENS SEEN. Normal [facility] Comment on above: Performed By: #### F T4, VITAD, FETIBC, FERR #### [facility] [address] [place] [address] Dr. Cecilio Gale FERRITINon 07-08-2022 Ferritin [Mass/Vol] 182.0 ng/mL Normal 8.0-252.0 [facility] Comment on above: Performed By: #### F T4, VITAD, FETIBC, FERR #### [facility] [address] [place] [address] Dr. Cecilio Gale FREE T3on 07-08-2022 FREE T3 2.02 pg/mlL Critically low 2.18-3.98 [facility] Comment on above: Performed By: #### F T4, VITAD, FETIBC, FERR #### [facility] [address] [place] [address] Dr. Cecilio Gale FREE T4on 07-08-2022 Free T4 [Mass/Vol] 0.98 ng/dL Normal 0.76-1.46 [facility] Comment on above: Performed By: #### F T4, VITAD, FETIBC, FERR #### [facility] [address] [place] [address] Dr. Cecilio Gale GLYCOHEMOGLOBIN A1Con 2021 ADA RECOMMENDATION SEE BELOW Normal [facility] Comment on above: Result Comment: ADA RECOMMENDED LIMIT 4.0 - 6.0 ADA THERAPEUTIC TARGET < 7.0 ACTION SUGGESTED > 7.0 Performed By: #### A 1C #### [facility] [address] [place] [address] Dr. Cecilio Gale Glucose [Mass/Vol] 105 mg/dL Normal [facility] Comment on above: Performed By: #### A 1C #### [facility] [address] [place] [address] Dr. Cecilio Gale HbA1c (Bld) [Mass fraction] 5.3 % Normal 4.5-6.2 [facility] Comment on above: Performed By: #### A 1C #### [facility] [address] [address] [address] Cecilio Gale IRON AND TIBCon 07-08-2022 % SATURATION 79.9 % Normal [facility] Comment on above: Performed By: #### F T4, VITAD, FETIBC, FERR #### [facility] [address] [address] [address] Cecilio Gale Iron [Mass/Vol] 219.0 ug/dL Critically high 50.0-170.0 [facility] Comment on above: Performed By: #### F T4, VITAD, FETIBC, FERR #### [facility] [address] [place] [address] Dr. Cecilio Gale TIBC DIRECT 274.0 ug/dL Normal 250.0-450.0 [facility] Comment on above: Performed By: #### F T4, VITAD, FETIBC, FERR #### [facility] [address] [place] [address] Dr. Cecilio Gale LIPID PROFILEon 07-08-2022 CHOL-HDL RATIO NORM SEE BELOW Normal [facility] Comment on above: Result Comment: 3.3 - 4.4 LOW RISK 4.4 - 7.1 AVERAGE RISK 7.1 - 11.0 MODERATE RISK >11.0 HIGH RISK Performed By: #### F T4, VITAD, FETIBC, FERR #### [facility] [address] [place] [address] Dr. Cecilio Gael Cholesterol [Mass/Vol] 215 mg/dL Critically high <=200 [facility] Comment on above: Performed By: #### F T4, VITAD, FETIBC, FERR #### [facility] [address] [place] [address] Dr. Cecilio Gale Cholesterol in HDL [Mass/Vol] 98 mg/dL Critically high 40-60 [facility] Comment on above: Performed By: #### F T4, VITAD, FETIBC, FERR #### [facility] [address] [place] [address] Dr. Cecilio Gale Cholesterol in LDL [Mass/Vol] 105.4 mg/dL Normal [facility] Comment on above: Performed By: #### F T4, VITAD, FETIBC, FERR #### [facility] [address] [place] [address] Dr. Cecilio Gale Cholesterol.total/C holesterol in HDL [Mass ratio] 2.2 {ratio} Normal [facility] Comment on above: Performed By: #### F T4, VITAD, FETIBC, FERR #### [facility] [address] [address] [address] Cecilio Gale HDL NORMAL > or = 60 mg/dl - LO W CARDIOVASCULAR RISK <40 mg/dl - HIGH CARDIOVASCULAR RISK Normal [facility] Comment on above: Performed By: #### F T4, VITAD, FETIBC, FERR #### [facility] [address] [place] [address] Dr. Cecilio Gale LDL CALC NORMAL SEE BELOW Normal [facility] Comment on above: Result Comment: <100 mg/dl OPTIMAL 100 - 129 mg/dl NEAR OR ABOVE OPTIMAL 130 - 159 mg/dl BORDERLINE HIGH 160 - 189 mg/dl HIGH >190 mg/dl VERY HIGH Performed By: #### F T4, VITAD, FETIBC, FERR #### [facility] [address] [place] [address] Dr. Cecilio Gale Triglyceride [Mass/Vol] 58 mg/dL Normal <=150 [facility] Comment on above: Performed By: #### F T4, VITAD, FETIBC, FERR #### [facility] [address] [place] [address] Dr. Cecilio Gale VLDL CALC 11.6 mg/dL Normal [facility] Comment on above: Performed By: #### F T4, VITAD, FETIBC, FERR #### [facility] [address] [place] [address] Dr. Cecilio Gale PROF 14(COMP METB)on 022 Albumin [Mass/Vol] 4.0 g/dL Normal 3.4-5.0 [facility] Comment on above: Performed By: #### F T4, VITAD, FETIBC, FERR #### [facility] [address] [place] [address] Dr. Cecilio Gale Albumin/Globulin [Mass ratio] 1.0 {ratio} Normal [facility] Comment on above: Performed By: #### F T4, VITAD, FETIBC, FERR #### [facility] [address] [place] [address] Dr. Cecilio Gale ALP [Catalytic activity/Vol] 160 U/L Critically high 46-116 [facility] Comment on above: Performed By: #### F T4, VITAD, FETIBC, FERR #### [facility] [address] [place] [address] Dr. Cecilio Gale ALT [Catalytic activity/Vol] 26 U/L Normal 14-59 [facility] Comment on above: Performed By: #### F T4, VITAD, FETIBC, FERR #### [facility] [address] [place] [address] Dr. Cceilio Gale Anion gap [Moles/Vol] 14.1 mmol/L Normal [facility] Comment on above: Performed By: #### F T4, VITAD, FETIBC, FERR #### [facility] [address] [place] [address] Dr. Cecilio Gale AST [Catalytic activity/Vol] 19 U/L Normal 15-37 [facility] Comment on above: Performed By: #### F T4, VITAD, FETIBC, FERR #### [facility] [address] [place] [address] Dr. Cecilio Gale Bilirubin [Mass/Vol] 0.5 mg/dL Normal 0.2-1.0 [facility] Comment on above: Performed By: #### F T4, VITAD, FETIBC, FERR #### [facility] [address] [place] [address] Dr. Cecilio Gale Calcium [Mass/Vol] 8.9 mg/dL Normal 8.5-10.1 [facility] Comment on above: Performed By: #### F T4, VITAD, FETIBC, FERR #### [facility] [address] [place] [address] Dr. Cecilio Gale Chloride [Moles/Vol] 93 mmol/L Critically low 98-107 [facility] Comment on above: Performed By: #### F T4, VITAD, FETIBC, FERR #### [facility] [address] [address] [address] Cecilio Gale CO2 [Moles/Vol] 25.9 mmol/L Normal 21.0-32.0 [facility] Comment on above: Performed By: #### F T4, VITAD, FETIBC, FERR #### [facility] [address] [place] [address] Dr. Cecilio Gale Creatinine [Mass/Vol] 0.68 mg/dL Normal 0.55-1.02 [facility] Comment on above: Performed By: #### F T4, VITAD, FETIBC, FERR #### [facility] [address] [place] [address] Dr. Cecilio Gale EGFR-AF LIBYAN >60 Normal >=60 [facility] Comment on above: Performed By: #### F T4, VITAD, FETIBC, FERR #### [facility] [address] [place] [address] Dr. Cecilio Gale EGFR-NON AF LIBYAN >60 Normal >=60 [facility] Comment on above: Performed By: #### F T4, VITAD, FETIBC, FERR #### [facility] [address] [place] [address] Dr. Cecilio Gale Globulin (S) [Mass/Vol] 3.9 g/dL Normal [facility] Comment on above: Performed By: #### F T4, VITAD, FETIBC, FERR #### [facility] [address] [place] [address] Dr. Cecilio Gale Glucose [Mass/Vol] 108 mg/dL Critically high 74-106 [facility] Comment on above: Performed By: #### F T4, VITAD, FETIBC, FERR #### [facility] [address] [place] [address] Dr. Cecilio Gale Potassium [Moles/Vol] 4.0 mmol/L Normal 3.5-5.1 [facility] Comment on above: Performed By: #### F T4, VITAD, FETIBC, FERR #### [facility] [address] [place] [address] Dr. Cecilio Gale Protein [Mass/Vol] 7.9 g/dL Normal 6.4-8.2 [facility] Comment on above: Performed By: #### F T4, VITAD, FETIBC, FERR #### [facility] [address] [place] [address] Dr. Cecilio Gale Sodium [Moles/Vol] 129 mmol/L Critically low 136-145 [facility] Comment on above: Performed By: #### F T4, VITAD, FETIBC, FERR #### [facility] [address] [place] [address] Dr. Cecilio Gale Urea nitrogen [Mass/Vol] 6.0 mg/dL Critically low 7.0-18.0 [facility] Comment on above: Performed By: #### F T4, VITAD, FETIBC, FERR #### [facility] [address] [place] [address] Dr. Cecilio Gale Urea nitrogen/Creatinine [Mass ratio] 8.8 mg/mg Normal [facility] Comment on above: Performed By: #### F T4, VITAD, FETIBC, FERR #### [facility] [address] [place] [address] Dr. Cecilio Gale TSHon 07-08-2022 TSH 0.963 uIU/mL Normal 0.358-3.740 [facility] Comment on above: Performed By: #### F T4, VITAD, FETIBC, FERR #### [facility] [address] [place] [address] Dr. Cecilio Gale UA RANDOMon 07-08-2022 Bilirubin Ql (U) Negative Normal NEGATIVE [facility] Comment on above: Performed By: #### F T4, VITAD, FETIBC, FERR #### [facility] [address] [place] [address] Dr. Cecilio Gale Clarity (U) CLEAR Normal CLEAR [facility] Comment on above: Performed By: #### F T4, VITAD, FETIBC, FERR #### [facility] [address] [place] [address] Dr. Cecilio Gale Color (U) LT. YELLOW Normal YELLOW [facility] Comment on above: Performed By: #### F T4, VITAD, FETIBC, FERR #### [facility] [address] [place] [address] Dr. Cecilio Gale Glucose Ql (U) Negative Normal NEGATIVE [facility] Comment on above: Performed By: #### F T4, VITAD, FETIBC, FERR #### [facility] [address] [place] [address] Dr. Cecilio Gale Hemoglobin Ql (U) TRACE-LYSED Abnormal NEGATIVE [facility] Comment on above: Performed By: #### F T4, VITAD, FETIBC, FERR #### [facility] [address] [place] [address] Dr. Cecilio Gale Ketones Ql (U) Negative Normal NEGATIVE [facility] Comment on above: Performed By: #### F T4, VITAD, FETIBC, FERR #### [facility] [address] [place] [address] Dr. Cecilio Gale LEUKOCYTES Negative Normal NEGATIVE [facility] Comment on above: Performed By: #### F T4, VITAD, FETIBC, FERR #### [facility] [address] [place] [address] Dr. Cecilio Gale Nitrite Ql (U) Negative Normal NEGATIVE [facility] Comment on above: Performed By: #### F T4, VITAD, FETIBC, FERR #### [facility] [address] [place] [address] Dr. Cecilio Gale pH (U) 7.5 [pH] Normal 5-9 [facility] Comment on above: Performed By: #### F T4, VITAD, FETIBC, FERR #### [facility] [address] [place] [address] Dr. Cecilio Gale SPEC GRAVITY <=1.005 Abnormal 1.005-<=1.0 25 [facility] Comment on above: Performed By: #### F T4, VITAD, FETIBC, FERR #### [facility] [address] [address] [address] Cecilio Gale UA PROTEIN Negative Normal NEGATIVE/ TRACE [facility] Comment on above: Performed By: #### F T4, VITAD, FETIBC, FERR #### [facility] [address] [address] [address] Cecilio Gale Urobilinogen Qn (U) 0.2 {Anita'U}/dL Normal 0.2 - 1. 0 [facility] Comment on above: Performed By: #### F T4, VITAD, FETIBC, FERR #### [facility] [address] [address] [address] Cecilio Gale Vital Signs Date Time Vital Sign Value Performing Clinician Facility 07-26-2024 13:38-0400 Body height 162.56 cm [facility] 07-26-2024 13:38-0400 Body mass index (BMI) [Ratio] 34.1 kg/m2 [facility] 07-26-2024 13:38-0400 Body temperature 97.3 [degF] [facility] 07-26-2024 13:38-0400 Body weight 90.26 kg [facility] 07-26-2024 13:38-0400 Diastolic blood pressure 82 mm[Hg] [facility] 07-26-2024 13:38-0400 Heart rate 76 /min [facility] 07-26-2024 13:38-0400 Respiratory rate 18 /min [facility] 07-26-2024 13:38-0400 SaO2% (BldA) [Mass fraction] 98 % [facility] 07-26-2024 13:38-0400 Systolic blood pressure 124 mm[Hg] [facility] 06-07-2024 13:13-0400 Body height 162.56 cm [facility] 06-07-2024 13:13-0400 Body mass index (BMI) [Ratio] 35 kg/m2 [facility] 06-07-2024 13:13-0400 Body weight 92.53 kg [facility] 06-07-2024 13:13-0400 Diastolic blood pressure 82 mm[Hg] [facility] 06-07-2024 13:13-0400 Heart rate 94 /min [facility] 06-07-2024 13:13-0400 SaO2% (BldA) [Mass fraction] 98 % [facility] 06-07-2024 13:13-0400 Systolic blood pressure 127 mm[Hg] [facility] 05-02-2024 11:10-0400 Body height 165.1 cm [facility] 05-02-2024 11:10-0400 Body mass index (BMI) [Ratio] 33.8 kg/m2 [facility] 05-02-2024 11:10-0400 Body weight 92.22 kg [facility] 05-02-2024 11:10-0400 Diastolic blood pressure 80 mm[Hg] [facility] 05-02-2024 11:10-0400 Respiratory rate 18 /min [facility] 05-02-2024 11:10-0400 Systolic blood pressure 112 mm[Hg] [facility] 10-27-2023 11:10-0500 Body height 165.1 cm Scotty Ruiz Other [facility] [employer] Other 10-27-2023 11:10-0500 Body mass index (BMI) [Ratio] 36.11 kg/m2 Scotty Ruiz Other [facility] [employer] Other 10-27-2023 11:10-0500 Body temperature 98.1 [degF] Scotty Ruiz Other [facility] [employer] Other 10-27-2023 11:10-0500 Body weight 98.43 kg Scotty Ruiz Other [facility] [employer] Other 10-27-2023 11:10-0500 Diastolic blood pressure 78 mm[Hg] Scotty Ruiz Other [facility] [employer] Other 10-27-2023 11:10-0500 Respiratory rate 18 /min Scotty Ruiz Other [employer] Other 10-27-2023 11:10-0500 SaO2% (BldA) [Mass fraction] 97 % Scotty Ruiz Other [employer] Other 10-27-2023 11:10-0500 Systolic blood pressure 120 mm[Hg] Scotty Sara Other [employer] Other 07-28-2023 09:50-0400 Body height 165.1 cm Scotty Sara Other [employer] Other 07-28-2023 09:50-0400 Body mass index (BMI) [Ratio] 39.1 kg/m2 Scotty Sara Other [employer] Other 07-28-2023 09:50-0400 Body weight 106.6 kg Scotty Ruiz Other [employer] Other 07-28-2023 09:50-0400 Diastolic blood pressure 78 mm[Hg] Scotty Ruiz Other [employer] Other 07-28-2023 09:50-0400 Respiratory rate 18 /min Scotty Ruiz Other [employer] Other 07-28-2023 09:50-0400 SaO2% (BldA) [Mass fraction] 98 % Scotty Ruiz Other [employer] Other 07-28-2023 09:50-0400 Systolic blood pressure 124 mm[Hg] Scotty Sara Other [employer] Other 06-02-2023 13:00-0400 Body height 165.1 cm Rajendra Angulo Other [employer] Other 06-02-2023 13:00-0400 Body mass index (BMI) [Ratio] 42.43 kg/m2 Rajendra Salinasno Other [employer] Other 06-02-2023 13:00-0400 Body weight 115.67 kg Christhannah Landadano Other [employer] Other 06-02-2023 13:00-0400 Diastolic blood pressure 78 mm[Hg] Rajendra Landadano Other [employer] Other 06-02-2023 13:00-0400 SaO2% (BldA) [Mass fraction] 97 % Rajendra Landadano Other [employer] Other 06-02-2023 13:00-0400 Systolic blood pressure 119 mm[Hg] Rajendra Salinasno Other [employer] Other 01-21-2023 11:50-0400 Body height 165.1 cm Scotty Ruiz Other [employer] Other 01-21-2023 11:50-0400 Body mass index (BMI) [Ratio] 45.92 kg/m2 Scotty Ruiz Other [employer] Other 01-21-2023 11:50-0400 Body temperature 97.7 [degF] Scotty Ruiz Other [employer] Other 01-21-2023 11:50-0400 Body weight 125.19 kg Scotty Ruiz Other [employer] Other 01-21-2023 11:50-0400 Diastolic blood pressure 86 mm[Hg] Scotty Ruiz Other [employer] Other 01-21-2023 11:50-0400 Respiratory rate 18 /min Scotty Sara Other [employer] Other 01-21-2023 11:50-0400 SaO2% (BldA) [Mass fraction] 97 % Scotty Sara Other [employer] Other 01-21-2023 11:50-0400 Systolic blood pressure 128 mm[Hg] Scotty Sara Other [employer] Other 08-04-2022 15:21-0400 Blood Pressure Location Kerry NILL [facility] [place] 08-04-2022 15:21-0400 Diastolic blood pressure 80 mm[Hg] Kerry NILL [facility] [place] 08-04-2022 15:21-0400 Heart rate 72 /min Kerry NILL [facility] [place] 08-04-2022 15:21-0400 Respiratory rate 16 /min Kerry NILL [facility] [place] 08-04-2022 15:21-0400 Systolic blood pressure 118 mm[Hg] Kerry NILL [facility] [place] 07-29-2022 11:12-0400 Body height 165.1 cm Ricci Garcia MD Work Phone: [facility] 07-29-2022 11:12-0400 Body temperature 97.11 [degF] Ricci Garcia MD Work Phone: [facility] 07-29-2022 11:12-0400 Body weight 122.97 kg Ricci Garcia MD Work Phone: [facility] 07-29-2022 11:12-0400 Diastolic blood pressure 89 mm[Hg] Ricci Garcia MD Work Phone: [facility] 07-29-2022 11:12-0400 Heart rate 83 /min Ricci Garcia MD Work Phone: [facility] 07-29-2022 11:12-0400 Respiratory rate 16 /min Ricci Garcia MD Work Phone: [facility] 07-29-2022 11:12-0400 SaO2% (BldA) [Mass fraction] 98 % Ricci Garcia MD Work Phone: [facility] 07-29-2022 11:12-0400 Systolic blood pressure 152 mm[Hg] Ricci Garcia MD Work Phone: [facility] 07-14-2022 14:20-0400 Body height 165.1 cm Scotty Ruiz Other [employer] Other 07-14-2022 14:20-0400 Body mass index (BMI) [Ratio] 45.26 kg/m2 Scotty Ruiz Other [employer] Other 07-14-2022 14:20-0400 Body temperature 97.6 [degF] Scotty Ruiz Other [employer] Other 07-14-2022 14:20-0400 Body weight 123.38 kg Scotty Ruiz Other [employer] Other 07-14-2022 14:20-0400 Diastolic blood pressure 82 mm[Hg] Scotty Ruiz Other [employer] Other 07-14-2022 14:20-0400 SaO2% (BldA) [Mass fraction] 97 % Scotty Ruiz Other [employer] Other 07-14-2022 14:20-0400 Systolic blood pressure 132 mm[Hg] Scotty Ruiz Other [employer] Other 06-03-2022 14:00-0400 Body height 165.1 cm Rajendra Kev Other [employer] Other 06-03-2022 14:00-0400 Body mass index (BMI) [Ratio] 45.26 kg/m2 Rajendra Kev Other [employer] Other 06-03-2022 14:00-0400 Body temperature 97.3 [degF] Rajendra Angulo Other [employer] Other 06-03-2022 14:00-0400 Body weight 123.38 kg Rajendra Angulo Other [employer] Other 06-03-2022 14:00-0400 Diastolic blood pressure 75 mm[Hg] Rajendra Angulo Other [employer] Other 06-03-2022 14:00-0400 SaO2% (BldA) [Mass fraction] 10 % Rajendra Angulo Other [employer] Other 06-03-2022 14:00-0400 Systolic blood pressure 113 mm[Hg] Rajendra Angulo Other [employer] Other Encounters Encounter Date Encounter Type Care Provider Facility Start: 08-09-2024 End: 08-17-2024 Telephone encounter Mahendra Cordova MA [facility] Start: 07-26-2024 End: 07-26-2024 ambulatory [facility] Work Phone: Start: 07-26-2024 End: 07-26-2024 Patient encounter procedure [facility] Work Phone: Start: 07-14-2024 Non-patient / Non-visit [facility] Work Phone: Start: 06-29-2024 Non-patient / Non-visit [facility] Work Phone: Start: 06-19-2024 Non-patient / Non-visit [facility] Work Phone: Start: 06-07-2024 End: 06-07-2024 ambulatory [facility] Work Phone: Start: 06-07-2024 End: 06-07-2024 Patient encounter procedure [facility] Work Phone: Start: 05-02-2024 End: 05-02-2024 ambulatory [facility] Work Phone: Start: 05-02-2024 End: 05-02-[address] [facility] Work Phone: Start: 04-26-2024 Non-patient / Non-visit [facility] Work Phone: Start: 04-20-2024 End: 04-20-2024 ambulatory KEREN INGRAMPHILIP Not Available Start: 12-13-2023 End: 12-13-2023 Phys/qhp telephone evaluation 5-10 min Trevor Liaoo DO Work Phone: [facility] Comment on above: Encounter to discuss test results Start: 11-23-2023 End: 11-23-2023 ambulatory TREVOR LIAM Not Available Start: 10-27-2023 End: 10-27-2023 ambulatory Scotty Ruiz Other [facility] [employer] Other Start: 10-27-2023 Office outpatient vi sit 25 minutes Scotty Ruzi [facility] Start: 08-04-2023 End: 08-04-2023 ambulatory Scotty Ruiz Other [employer] Other Start: 08-04-2023 Telephone encounter Scotty Ruiz [facility] Start: 07-28-2023 End: 07-28-2023 ambulatory Scotty Ruiz Other [employer] Other Start: 07-28-2023 Office outpatient vi sit 25 minutes Scotty Ruiz [facility] Start: 07-22-2023 End: 07-22-2023 ambulatory Scotty Ruiz Other [employer] Other Start: 07-22-2023 Telephone encounter [facility] Start: 06-02-2023 Office outpatient vi sit 10 minutes Rajendra Angulo [facility] Start: 06-02-2023 End: 06-02-2023 ambulatory DO Scotty Ruiz Work Phone: [place] [email or web address] Other Start: 06-02-2023 End: 06-02-2023 Patient encounter procedure DO Scotty Ruiz Work Phone: [facility] Work Phone: Start: 02-09-2023 End: 02-09-2023 ambulatory Scotty Ruiz Other [employer] Other Start: 02-09-2023 Telephone encounter Scotty Ruiz [facility] Start: 01-21-2023 End: 01-21-2023 ambulatory Scotty Ruiz Other [employer] Other Start: 01-21-2023 Encounter for other preprocedural examination Scotty Ruiz [facility] [place] Start: 01-21-2023 Office outpatient vi sit 25 minutes Scotty Ruiz [facility] Start: 01-11-2023 End: 01-12-[address] SCOTTY RUIZ Facility: Start: 11-30-2022 End: 11-30-2022 ambulatory Scotty Ruiz Other [employer] Other Start: 11-30-2022 Telephone encounter Scotty Ruiz [facility] Start: 10-08-2022 End: 10-09-[address] DOCTOR RANDALL Facility: Start: 09-22-2022 End: 09-23-2022 [facility]ulatory [facility] Start: 09-22-2022 End: 09-22-2022 Patient encounter procedure Kerry R MOMO [facility] [place] Start: 09-17-2022 ambulatory Scotty Ruiz Faci lity: [place] Start: 09-09-2022 End: 09-10-2022 ambulatory Kerry JONES Facility:[id number] Start: 2022 Telephone encounter Janie Joseph [facility] Start: 2022 End: 09-08-[address] KERRY JONES . 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 Start: 07-28-2022 End: 07-28-2022 Patient encounter procedure DO Scotty Ruiz Work Phone: [facility] Start: 07-21-2022 Telephone encounter Scotty Ruiz [facility] Start: 07-21-2022 End: 07-22-[address] SCOTTY RUIZ [facility] [employer] Other Start: 07-14-2022 End: 07-14-2022 ambulatory Scotty Ruiz [facility] [employer] Other Start: 07-14-2022 Office outpatient vi sit 25 minutes Scotty Ruiz [facility] [place] Start: 07-08-2022 End: 07-09-[address] SCOTTY RUIZ Facility: Start: 07-07-2022 Telephone encounter Scotty Ruiz [facility] [place] Start: 07-07-2022 End: 07-09-2022 ambulatory DO [employer] [facility] [employer] Other Start: 06-03-2022 End: 06-03-2022 ambulatory Rajendra Angulo Other [facility] [employer] Other Start: 06-03-2022 Office outpatient vi sit 10 minutes Rajendra Angulo [facility] Start: 06-03-2022 End: 06-03-2022 Patient encounter procedure DO Scotty Ruiz Work Phone: [facility] Start: 09-01-2021 Telephone encounter Scotty Ruiz [facility] [place] Procedures Date Procedure Procedure Detail Performing Clinician Start: 09-09-2022 Colonoscopy Trevor an DO Work Phone: Start: 09-09-2022 Colonoscopy Kerry PRESLEY Start: 07-29-2022 Blood count complete auto&auto difrntl wbc Ricci Garcia MD Work Phone: Closed reduction of fracture of ankle Kerry JONES Craniotomy Kerry JONES Ligation of fallopian tube Rebecca ichelena JONES Vaginal hysterectomy Kerry JONES Plan of Treatment Date Care Activity Detail Author Start: 09-09-2032 Screening for malign ant neoplasm of colon [facility] Start: 08-21-2025 DIABETES SCREEN DIABETES SCREEN [facility] Start: 07-29-2025 DIABETES SCREEN DIABETES SCREEN [facility] Start: 11-28-2024 End: 11-28-2024 Patient encounter procedure 11/28/2024 1:00 PM EST Office Visit [facility] [address] [place] [address] Trevor Wheeler, [address] Jose Bill, [place] [address] [facility] Start: 10-26-2024 End: 10-26-2024 Patient encounter procedure 10/26/2024 11:20 AM EST Office [facility] [address] [place] [address] Keren Valles, FRY COOK [address] [place], [place] [facility] [address] Start: 07-09-2024 Influenza vaccination Influenza Vacc ine (#1) [facility] Start: 07-29-2022 End: 09-28-2022 HFE gene targeted mutation analysis in Blood or Tissue by Molecular genetics method [place] Work Phone: Comment on above: Expected: 07/29/2022 , Expires: 09/28/2022 Start: 07-09-2022 Influenza vaccination INFLUENZA (#1) [facility] Start: 04-14-2022 COVID-19 VACCINE (5 - Booster for Pfizer series) COVID-19 VACCINE (5 - Booster for Pfizer series) [facility] Start: 11-08-2021 DEPRESSION ASSESSMENT DEPRESSION ASS ESSMENT [facility] Start: 2011 COLOGUARD (FIT-DNA) COLOGUARD (FIT-D NA) [facility] Start: 2011 Colonoscopy COLONOSCOPY [facility] Start: 2011 COLORECTAL CANCER SCREENING COLORECTAL CANCER SCREENING [facility] Start: [address] COLONOGRAPHY [facility] Start: 2011 FECAL OCCULT BLOOD FECAL OCCULT BLOO D [facility] Start: 2011 LIPID SCREEN LIPID SCREEN [facility] Start: 2011 SIGMOIDOSCOPY SIGMOIDOSCOPY [facility] Start: 2006 Mammography MAMMOGRAM [facility] Start: 2006 Screening for malign ant neoplasm of breast Mammogram [facility] Start: 1996 HPV TESTING HPV TESTING [facility] Start: 1996 Screening for malign ant neoplasm of cervix [facility] Start: 1987 PAP TESTING PAP TESTING [facility] Start: 1987 Screening for malign ant neoplasm of cervix Pap Smear [facility] Start: 1985 Urine microalbumin profile DTAP,TDAP,TD (1 - Tdap) [facility] Start: 1984 HEPATITIS C SCREENING HEPATITIS C SC TIFFANIENING [facility] Start: 1984 HIV SCREENING HIV SCREENING [facility] Start: 1978 Adult depression screening assessment DEPRESSION SCREENING [facility] Start: 1966 HEPATITIS B (1 of 3 - 3-dose series) HEPATITIS B (1 of 3 - 3-dose series) [facility] Start: 1966 Screening for malign ant neoplasm of colon [facility] Bacteria identified in Urine by Culture [facility] Calcium.ionized [Mass/volume] in Serum or Plasma by Ion-selective membrane electrode (ISE) [facility] End: 08-12-2023 CBC W Auto Differential panel - Blood CBC + DIFF Lab Routine 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) Every 3 months for 4 Occurrences starting 08/12/2022 until 08/12/2023 [place] Work Phone: Comment on above: Every 3 months for 4 Occurrences starting 08/12/2022 until 08/12/2023 End: 08-12-2023 Comprehensive metabolic 2000 panel - Serum or Plasma COMP METABOLIC PANEL Lab Routine 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) Every 3 months for 4 Occurrences starting 08/12/2022 until 08/12/2023 [place] Work Phone: Comment on above: Every 3 months for 4 Occurrences starting 08/12/2022 until 08/12/2023 Comprehensive metabo lic 2000 panel - Serum or Plasma 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) Every 3 months for 4 Occurrences starting 08/12/2022 until 08/12/2023 [place] Work Phone: Comment on above: Every 3 months for 4 Occurrences starting 08/12/2022 until 08/12/2023 End: 08-12-2023 Iron and Iron binding capacity panel - Serum or Plasma IRON + TIBC Lab Routine 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) Every 3 months for 4 Occurrences starting 08/12/2022 until 08/12/2023 [place] Work Phone: Comment on above: Every 3 months for 4 Occurrences starting 08/12/2022 until 08/12/2023 [facility] Immunizations Immunization Date Immunization Notes Care Provider Fa cility 08-18-2023 COVID-19 Vaccine Moderna - Documentation Purposes Only Scotty Ruiz Other [facility] 08-18-2023 Influenza, injectable, Madin Jennifer Canine Kidney, preservative free, quadrivalent [facility] 08-18-2023 Flu Shot - Documentation Purposes Only Scotty Ruiz Other [facility] 08-18-2023 influenza virus vaccine, unspecified formulation Mahendra Cordova MA [facility] 10-15-2022 COVID-19 mRNA Bivalent Booster (Pfizer) [facility] 10-15-2022 influenza, injectable, quadrivalent, preservative free [facility] 10-15-2022 influenza, seasonal, injectable Scotty Ruiz Other [facility] 02-17-2022 COVID-19 Vaccine Moderna - Documentation Purposes Only Rajendra Angulo Other [facility] 10-11-2021 COVID-19 Vaccine Pfizer - Documentation Purposes Only Rajendra Kev Other [facility] 08-05-2021 influenza, seasonal, injectable Scotty Ruiz Other [facility] 08-05-2021 influenza, injectable, quadrivalent, preservative free Ricci Garcia MD Work Phone: [facility] 02-07-2021 COVID-19 Vaccine Pfizer - Documentation Purposes Only Scotty Ruiz Other [facility] Comment on above: Reason for Medicatio n: Prophylaxis 01-17-2021 COVID-19 Vaccine Pfizer - Documentation Purposes Only Scotty Ruiz Other [facility] Comment on above: Reason for Medicatio n: Prophylaxis 10-04-2020 zoster vaccine recombinant Scotty Ruiz Other [facility] 08-05-2020 zoster vaccine recombinant Scotty Ruiz Other [facility] 08-05-2020 influenza, seasonal, injectable Scotty Ruiz Other [facility] 08-05-2020 influenza, injectable, quadrivalent, preservative free Ricci Garcia MD Work Phone: [facility] 10-17-2019 influenza, seasonal, injectable Scotty Ruiz Other [facility] 10-17-2019 influenza, injectable, quadrivalent, contains preservative Ricci Garcia MD Work Phone: [facility] 07-23-2018 influenza, injectable, quadrivalent, preservative free Ricci Garcia MD Work Phone: [facility] 07-23-2018 influenza, seasonal, injectable Scotty Ruiz Other [facility] NEGATED: Highlighted row has not occurred!08-04-2022 influenza virus vaccine, unspecified formulation Kerry MOMO [facility] [place] Payers Date Payer Category Payer Self-pay [id number] 2019 Medicare [id number] 1966 Unknown [id number] 2.16.8 [id number] 1966 Unknown [id number] 2.16.8 [id number] 1966 Unknown [id number] 2.16.8 [id number] 1966 Unknown [id number] 2.16.8 [id number] 1966 Unknown [id number] 2.16.84 0.1.695543.3.579.2.593 1966 Unknown [id number] 2.16.84 0.1.623069.3.579.2.593 1966 Unknown [id number] 2.16.84 0.1.043598.3.579.2.593 1966 Unknown [id number] 2.16.84 0.1.886399.3.579.2.593 1966 Unknown [id number] 2.16.84 0.1.563730.3.579.2.593 1966 Unknown [id number] 2.16.84 0.1.665310.3.579.2.593 1966 Unknown [id number] 2.16.84 0.1.948527.3.579.2.593 1966 Unknown [id number] 2.16.84 0.1.421390.3.579.2.1259 1966 Unknown [id number] 2.16.84 0.1.065249.3.579.2.1259 1958 Medicare [id number] 2.16. [id number] Unknown MMO [id number] Unknown Regular Insurance [id number] Unknown [employer] [id number] Unknown [id number] 2.16.8 [id number] Unknown [id number] 2.16.8 40.1.861241.3.579.2.531 Unknown [id number] 2.16.8 [id number] Unknown HCAP/HFA/FAP Active [id number] Social History Date Type Detail Facility Unknown if ever smoked [employer] Other Start: 11-02-2023 End: 04-20-2024 Sex Assigned At [employer] Other Start: 1965 Sex Assigned At Female [facility] Start: 07-23-2022 End: 04-20-2024 Tobacco smoking status NHIS Never smoked tobacco [facility] History of tobacco use Passive smoker [facility] Start: 07-23-2022 End: 04-20-2024 Tobacco use and exposure Smokeless tobacco non-user [facility] Start: 07-29-2022 Alcohol intake Current non-drinker of alcohol (finding) [facility] Start: 1965 Sex Assigned At Not on file [facility] Start: 07-19-2022 End: 08-21-2022 Exposure to SARS-CoV-2 (event) Not sure [facility] Tobacco smoking status [facility] Start: 11-23-2023 End: 04-20-2024 Alcohol intake Lifetime non-drinker (finding) [facility] Start: 11-02-2023 End: 04-20-2024 History of Social function [facility] Start: 11-02-2023 Alcohol Comment caffeine: 2-3 cups per day coffee, soda [facility] Start: 11-16-2023 Gender identity Identifies as female gender (finding) [facility] Start: 11-16-2023 Sexual orientation Heterosexual (finding) [facility] Functional Status Date Assessment Result Facility 08-04-2022 Functional Status N/A General Ashley stefano Bill Clinical Notes 09-01-2021 to 08-17-2024 Telephone Encounter - Vincent Aguilar DO - 08/17/2024 1:09 PM EDTTelephone Encounter - Vincent Aguilar DO - 08/17/2024 1:09 PM EDTTelephone Encounter - Mahendra Cordova MA - 08/15/2024 9:08 AM EDT Note Date & Type Note Facility 08-17-2024 Telephone encounter Note Form atting of this note might be different from the original. No all done We are giving the form and fee back [facility] 08-17-2024 Miscellaneous Notes Formattin g of this note might be different from the original. No all done We are giving the form and fee back Does this need addressed. I see this we reassigned to yourself? Do you need me to call the pt and inform of the above? She states that she has been getting disability from [employer] and [employer] At this time the patient has not had any breakthrough seizures. Her last EEG in October of 2023 was normal it was an ambulatory EEG. Her neuropsych testing was reviewed and that showed no neurodegenerative process and her ability to do independent activities of daily living without any difficulty but with some psychiatric underlying such as anxiety. Her FCE showed that she could do moderate activity and that she did not qualify for disability. For these reasons we can not continue this patient on disability from a neurologic standpoint. We will review the paperwork and see what needs to be filled out. If nothing needs to be filled out will return back to her and return her pharmacy if not then we will fill out the paperwork to let them know that technically for the above reason she is no longer consider disabled. Patient dropped off the paperwork and paid the form fee, per Josette. Upon review of the patient's chart and speaking with Dr Aguilar, the patient did have a FCE done and does not qualify for disability. We can fill this out with that documentation. If she does not want us to fill it out then she can be refunded her form fee. Dr Aguilar did try to call the patient on her home and cell phone with no answer. Patient calls stating that she has forms for disability to be filled out by our provider. Will drop off at [facility]. Will picker/puller when our portion is done. documented in this encounter [facility] 08-15-2024 Telephone encounter Note Form atting of this note might be different from the original. Does this need addressed. I see this we reassigned to yourself? Do you need me to call the pt and inform of the above? [facility] 08-09-2024 Telephone encounter Note Form atting of this note might be different from the original. She states that she has been getting disability from [employer] and [employer] At this time the patient has not had any breakthrough seizures. Her last EEG in October of 2023 was normal it was an ambulatory EEG. Her neuropsych testing was reviewed and that showed no neurodegenerative process and her ability to do independent activities of daily living without any difficulty but with some psychiatric underlying such as anxiety. Her FCE showed that she could do moderate activity and that she did not qualify for disability. For these reasons we can not continue this patient on disability from a neurologic standpoint. We will review the paperwork and see what needs to be filled out. If nothing needs to be filled out will return back to her and return her pharmacy if not then we will fill out the paperwork to let them know that technically for the above reason she is no longer consider disabled. [facility] 08-09-2024 Telephone encounter Note Form atting of this note might be different from the original. Patient dropped off the paperwork and paid the form fee, per Josette. Upon review of the patient's chart and speaking with Dr Aguilar, the patient did have a FCE done and does not qualify for disability. We can fill this out with that documentation. If she does not want us to fill it out then she can be refunded her form fee. Dr Aguilar did try to call the patient on her home and cell phone with no answer. [facility] 08-09-2024 Telephone encounter Note Form atting of this note might be different from the original. Patient calls stating that she has forms for disability to be filled out by our provider. Will drop off at [facility]. Will picker/puller when our portion is done. [facility] 05-02-2024 Evaluation note Authored May 02, 2024 12:5 3pm The above note written by __ _Jesusita Elliott____ acting as human recorder, note dictated by _Sara .I performed the above HPI, ROS, and Examination. I formulated and dictated the treatment plan and was present for entire encounter. Scotty Ruiz D.O. [facility] Work Phone: 1([phone]) 203-154102-05-2024 History of Present illness Narrative* Trevor Wheeler DO - 12/13/2023 8:00 AM EST Reason for Appointment: Patient ID: Layton Newton is a 58 y.o. female who presents for Results Patient presents today via telephone call for a telehealth appointment. 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 [employer] Other 09-20-2023 Evaluation note* Encounter Date Diagnosis [...] HgA1C is normal at 5.4. 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 [employer] [facility] Other 07-26-2023 Evaluation note* Encounter Date Diagnosis Assessment Notes Treatment Notes Treatment Clinical Notes May, LORENA (obstructive sleep apnea) (ICD-10 - G47.33) [employer] Other 03-16-2023 Evaluation note* Encounter Date Diagnosis [...] was 121. Ferritin was 132.0. Jan, Other long-term (current) drug therapy (ICD-10 - Z79.899) Jan, [...] winded. She is seeing Dr. Collins in [place] in an attempt to have bariatric weight [...] when she had weight loss surgery done. [employer] Other 11-02-2022 NoteOPERATIVE NOTE OPERATION DATE: 09/09/2022 [...] in good condition. CC: Scotty Ruiz D.O.[facility] [id number] NoteHNO ID: [id number] Author: Olesya Rodriguez RN Service: ? Author Type: Registered Nurse Type: Progress Notes Filed: 08/21/2022 4:39 PM Note Text: Pt was checked in for appointment. HGB of 14.3 qualified her for a phlebotomy. However, pt left the building after getting her blood work drawn. PSS called and LVM for pt to reschedule.[facility] 08-21-2022 History of Present illness Narrative* Olesya Rodriguez RN - 08/21/2022 3:24 PM EDT Pt was checked in for appointment. HGB of 14.3 qualified her for a phlebotomy. However, pt left thebuilding after getting her blood work drawn. PSS called and LVM for pt to reschedule. documented in this [facility]10-05-2022 Instructions* Patient Instructions* Ricci Garcia MD - 08/12/2022 8:43 PM EDT Arrange for phlebotomy 1 unit for Hgb > 13 next week Labs in 3 months RTC 1 week after labs and schedule for possible phlebotomy after clinician. [facility]22 NoteHNO ID: [id number] Author: Ricci Garcia MD Service: ? Author Type: Physician Type: Progress Notes Filed: 08/12/2022 8:45 PM Note Text: NAME: Mikey Newton CLINIC NO.: [id number] DATE OF SERVICE: August 12, 2022 Some [...] 07/29/2022 0.4 AST (U/L (more content not included)...[facility]10-05-2022 History of Present illness Narrative* Ricci Garcia MD - 08/12/2022 5:17 PM EDT Images from the original note were not included. NAME: Mikey Newton CLINIC NO.: [id number] DATE OF SERVICE: August 12, 2022 Some [...] CPE Hematology and Oncology Services Provided at: [place], [place] CC: Scotty Ruiz [address] [place] [address] Scotty Ruiz DO [address] [place] [address] documented in this encounterOhio[facility]09-27-2022 NoteChief Complaint consultation for screening colonoscopy [...] 50,000 intl units (1.25 mg) oral capsule, 32390 International_Unit= 1 cap(s), Oral, qWeek Allergies Depakote [...] SARS-CoV-2 (COVID-19) mRNA BNT-162b2 vax 01/17/2021 Given ProphylaxisTrumbull Memorial HospitalComment on above:Result Comment: Electronically Signed By: MOMO CHAND, Kerry Barfield\Date and Time Signed: 08/04/22 15:39 [id number] Note HNO ID: [id number] Author: Ricci Garcia MD Service: ? Author Type: Physician Type: Progress Notes Filed: 07/30/2022 12:33 PM Note Text: NAME: Mikey Newton CLINIC NO.: [id number] DATE OF SERVICE: July 29, 2022 Referring [...] FAMILY HISTORY Problem Relation (more content not included)...[facility] 07-29-2022 Instructions* Patient Instructions* Ricci Garcia MD - 07/29/2022 11:49 AM EDT HFE and iron labs today Call results in 2 weeks. documented in this encounterOhio[facility]09-21-2022 History of Present illness Narrative* Ricci Garcia MD - 07/29/2022 11:00 AM EDT Images from the original note were not included. NAME: Mikey Newton LUIS ARMANDO NO.: [id number] DATE OF SERVICE: July 29, 2022 Referring [...] which included preparing to see the patient, [id number] patient care, completing clinical documentation, obtaining and/or reviewing separately obtained history, performing a medically appropriate examination, counseling and educating the pat ient/family/caregiver, ordering medications, tests, or procedures, and independently interpreting results (not separately reported). Ricci Garcia MD, CPE Hematology and Oncology Services Provided at: [place], [place] CC: Scotty Ruiz [address] [place] [address] Scotty Ruiz, DO [address] [place] [address] documented in this encounterOhio[facility]09-06-2022 Evaluation note* Encounter Date Diagnosis Assessment [...] advise her that she should see another cattle shipper to determine if she has hemochromatosis or [...] years ago she had an appointment in [place] with a bariatric surgeon and at the [...] colonoscopy, she agrees. A referral is provided. [employer] Other 07-27-2022 Evaluation note* Encounter Date Diagnosis Assessment Notes Treatment Notes Treatment Clinical Notes May, LORENA (obstructive sleep apnea) (ICD-10 - G47.33) [employer] Other 10-25-2021 Evaluation note* Encounter Date Diagnosis Assessment Notes Treatment Notes Treatment Clinical Notes Aug, Hypothyroidism (ICD-10 - E03.9) [employer] Other Evaluation + Plan note No data available for this section General Surgery Yong Evaluation noteNo InformationNort [employer] Other Evaluation noteNo assessment information available 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 HealthcareEvaluation note* Diagnosis Onset Date Resolution Status Epilepsy acute Hemochromatosis acute Hyperglycemia acute Hyperlipidemia acute Hypocalcemia acute Hyponatremia acute Hypothyroidism acute Intentional weight loss acut e Vitamin D deficiency acute [facility] Work Phone: Hisijtf general Narrative - Reported* Type Description Date Medical History Epilepsy-1977; Follow's with Dr. Natalio Weaver Medical History History of [place] Medical History Hemochromotosis Medical History Dr. Mckeon, jabari's patient's pap's and pelvics Medical History Patient states that she get's her Medical Equipment from [employer] Medical Equipment Medical History LORENA (obstructive sleep apnea) Medical History Refuses Colonoscopy 17 Surgical History Brain Surgery 1988 Surgical History Tubal Ligation 1991 Surgical History Hysterectomy 2003 Hospitalization History Brain Surgery 1988 Hospitalization History Tubal Ligation 1991 Hospitalization History Hysterectomy 2003 [employer] Other Hisreee general Narrative - Reported* Type Description Date Medical History Epilepsy-1977; Follow's with Dr. Natalio Weaver Medical History History of [place] Medical History Hemochromotosis Medical History Dr. Mckeon, jabari's patient's pap's and pelvics Medical History Patient states that she get's her Medical Equipment from [facility] Medical History LORENA (obstructive sleep apnea) Medical History Refuses Colonoscopy 02-08-17 Medical History gallstones Surgical History Brain Surgery 1988 Surgical History Tubal Ligation 1991 Surgical History Hysterectomy 2003 Surgical History Colonoscopy - Dr. Jones / alejandra cavazos polyp 09/25/22 Hospitalization History Brain Surgery 1988 Hospitalization History Tubal Ligation 1991 Hospitalization History Hysterectomy 2003 [employer] Other Hisrwsv general Narrative - Reported* Type Description Date Medical History Epilepsy-1977; Follow's with Dr. Natalio Weaver Medical History History of [place] Medical History Hemochromotosis Medical History Dr. Mckeon, jabari's patient's pap's and pelvics Medical History Patient states that she get's her Medical Equipment from [facility] Medical History LORENA (obstructive sleep apnea) Medical History Refuses Colonoscopy 17 Medical History gallstones Surgical History Brain Surgery 1988 Surgical History Tubal Ligation 1991 Surgical History Hysterectomy 2003 Surgical History Colonoscopy - Dr. Holly presley / sigmoid polyp / needs repeat in 202409/09/22 Surgical History bariatric surgery 06/22/23 Hospitalization History Brain Surgery 1988 Hospitalization History Tubal Ligation 1991 Hospitalization History Hysterectomy 2003 [employer] Other Hospital Discharge instructions No data available for this section General Surgery [employer] Progress note No data available for this section General Surgery [employer] Reason for visit Narrativereview labs/medical clearance for bariatric surgeryOnslow [employer] Other Chief Complaint and Reason for Visit [...] Time Advance Directives No January 26 018 12:08pm Reason for Referral Reason appt pt needs scre ening colonoscopy Diagnosis 1 Encounter for screen ing colonoscopy (Z12.11) Referral Organization [facility] [employer] Yong Referring Provider First Name Scotty Referring Provider Last Name Sara Referring Provider Specialty Family Andressa vidal Referred Organization [facility] Referred Provider Kerry Jones Referred Address ,[place], [place],[address] Referred Provider Specialty Surgery Referral Priority Routine General Notes Luh Giraldo 07/14/2022 02:16:50 PM > referral faxed with visit note and insurance card. pt understands she will be contacted to schedule this appt. Reason appt pt is marcela breaux to see whomever can see her first pt needs consult to discuss official dx of hemochromatosis Diagnosis 1 Hemochromatosis (E83 .119) Referral Organization [facility] Family Medicin e Yong Referring Provider First Name Scotty Referring Provider Last Name Sara Referring Provider Specialty Family Prac marcy Referred Organization [facility] Referred Provider Ricci Garcia Referred Address [address] [place], [place],[address] Referred Provider Specialty Hematology/O ncology Referral Priority [...] Status: Inactive Member Role Status Dates Scotty Girvin , DO Primary Care Provider Active Rajendra Angulo MD Attending Provider Active Team Status: Inactive Member Role Status Dates Scotty Ruiz , DO Primary Care Provider Active Mahendra Romo , PhD Attending Provider Active Asbestos Remover Relationship Specialty Start Date End Date Vincent Aguilar [address] [address] PCP - General Neurology 07/29/22 Asbestos Remover Relationship Specialty Start Date End Date Vincent Aguilar [address] [place] [phone] PCP - General Neurology 07/29/22 Asbestos Remover Relationship Specialty Start Date End Date Scotty Ruiz MD [address] [place] [address] PCP - General Family Medicine 11/23/23 Asbestos Remover Relationship Specialty Start Date End Date Scotty Ruiz MD [address] [place], [place] [id number] PCP - General Family Medicine 11/23/23 Goals [...] prosecute any alcohol or drug abuse patient.[facility] HospitalIn the event this information is protected by the Federal Confidentiality of Alcohol and Drug Abuse Patient Records regulations: The Federal rules restrict any use of the information to criminally investigate or prosecute any alcohol or drug abuse patient.[facility] HospitalIn the event this information is protected by the Federal Confidentiality of Alcohol and Drug Abuse Patient Records regulations: The Federal rules restrict any use of the information to criminally investigate or prosecute any alcohol or drug abuse patient.[facility] INFORMATION SOURCE (unrecogn ized section and content) DATE CREATED AUTHOR 08/30/2022 [facility] DATE CREATED AUTHOR AUTHOR'S ORGANIZ ATION 09/27/2022 [facility] DATE CREATED AUTHOR AUTHOR'S ORGANIZ ATION 01/13/2023 [facility] DATE CREATED AUTHOR AUTHOR'S ORGANIZ ATION 06/04/2023 [facility] DATE CREATED AUTHOR AUTHOR'S ORGANIZ ATION 04/22/2024 [facility] FOR RECORDS PERTAINING TO PATIENTS [...] BE BASED ON THE PRIMARY CLINICAL RECORDS. [employer] provides no warranty or guarantee of the accuracy or completeness of information in this document.
[2024-10-20 10:17] LABS: Bilirubin Urine NEGATIVE (NEGATIVE); Blood Urine NEGATIVE (NEGATIVE); Clarity Urine CLEAR (CLEAR); Color Urine LT. YELLOW (YELLOW); Glucose Urine UA NEGATIVE (NEGATIVE); Ketones Urine NEGATIVE (NEGATIVE); Leukocyte Esterase Urine SMALL (NEGATIVE); Nitrite Urine NEGATIVE (NEGATIVE); Protein Urine NEGATIVE (NEG/TRACE); Specific Gravity Urine 1.015 (1.005-1.025); Urobilinogen Urine 0.2 EU/dL (0.2-1.0)
[2024-10-20 10:25] LABS: Bacteria Urine TRACE #/HPF (NONE SEEN); Cast Seen? NONE SEEN #/LPF (NONE SEEN); Crystals Seen? None Seen #/HPF (None Seen); Mucus Urine NONE SEEN (NONE SEEN); RBC Urine 0-2 #/HPF (0-2); Squamous Epithelial Cell Urine RARE #/LPF (NONE/RARE)
[2024-10-20 10:34] LABS: Estimated Average Glucose 108 mg/dL; Glycohemoglobin A1C 5.4 % (4.5-6.2)
[2024-10-20 11:17] LABS: Alanine Aminotransferase 20 U/L (14-59); Albumin Globulin Ratio 1.1; Albumin Level 3.8 g/dL (3.4-5.0); Alkaline Phosphatase 132 U/L (46-116); Anion Gap 14.2; Aspartate Amino Transferase 20 U/L (15-37); BUN Creatinine Ratio 12.2; Bilirubin Total 0.4 mg/dL (0.2-1.0); Calcium 9.3 mg/dL (8.5-10.1); Carbon Dioxide 29.5 mmol/L (21.0-32.0); Chloride 98 mmol/L (98-107); Chol HDL Ratio 1.7; Cholesterol 242 mg/dL (<=200); Estimated GFR (African America >60 (>=60 mL/min/1.73m^2); Estimated GFR (Non-African Ame 58 (>=60 mL/min/1.73m^2); Free T3 2.14 pg/mL (2.18-3.98); Globulin 3.6 g/dL; Glucose 95 mg/dL (74-106); HDL Cholesterol 145 mg/dL (40-60); Potassium 4.7 mmol/L (3.5-5.1); Sodium 137 mmol/L (136-145); Thyroid Stimulating Hormone 3.022 uIU/mL (0.358-3.740); Total Protein 7.4 g/dL (6.4-8.2); Triglycerides 46 mg/dL (<=150); VLDL CHOLESTEROL 9.2 mg/dL
[2024-10-20 11:31] LABS: Free T4 0.76 ng/dL (0.76-1.46)
== END 2024-10-20 09:50 | disposition home or self-care (01) ==
LOC: LAB 09:49
PROVIDERS: PCP Family Medicine; Visit Provider Family Medicine
DX: E78.5 Hyperlipidemia, unspecified (principal); E03.9 Hypothyroidism, unspecified; E83.119 Hemochromatosis, unspecified; R73.9 Hyperglycemia, unspecified; Z79.899 Other long term (current) drug therapy; R35.1 Nocturia; R63.4 Abnormal weight loss
CPT/HCPCS: 36415; 80053; 80061; 81001; 82728; 83036; 84439; 84443; 84481; 87086

== ENCOUNTER 2024-12-22 07:39 | Outpatient (RCR) | payer MEDICARE, SELFPAY ==
[2024-12-22 12:44] VITALS: BP 112/72; PULSE 89; TEMP 36.1; O2SAT 95
[2024-12-22 12:52] LABS: Calcium 9.1 mg/dL (8.5-10.1); Estimated GFR (African America >60 (>=60 mL/min/1.73m^2); Estimated GFR (Non-African Ame 60 (>=60 mL/min/1.73m^2)
[2024-12-22] MEDS: DENOSUMAB 60 MG/ML SYRINGE SUBQ (13:09)
== END 2024-12-25 07:56 | disposition home or self-care (01) ==
LOC: LAB 07:39
PROVIDERS: PCP Family Medicine; Visit Provider Obstetrics & Gynecology
DX: M81.0 Age-related osteoporosis without current pathological fracture (principal); Z78.0 Asymptomatic menopausal state
CPT/HCPCS: 36415; 82310; 82565; 96372; J0897

== ENCOUNTER 2025-04-24 10:34 | Outpatient (OUT) | payer MEDICARE, SELFPAY ==
[2025-04-24 11:01] LABS: Basophils Percent Auto 0.8 % (0.2-2.0); Hematocrit 38.9 % (36.0-48.0); Immature Granulocytes Abs Auto 0.01 10^3/uL (0.00-0.03); Immature Granulocytes Pct Auto 0.3 % (0.0-0.5); Lymphocytes Absolute Auto 1.5 10^3/uL (1.2-3.8); Lymphocytes Percent Auto 38.7 % (20.5-60.0); Mean Corpuscular Hemoglobin 35.2 pg (26.7-34.0); Mean Corpuscular Volume 97.7 fL (81.0-99.0); Mean Platelet Volume 8.4 fL (9.5-13.5); Monocytes Absolute Auto 0.4 10^3/uL (0.3-0.8); Monocytes Percent Auto 9.4 % (1.7-12.0); Neutrophils Absolute Auto 1.9 10^3/uL (1.4-6.5); Neutrophils Percent Auto 50.8 % (43.0-75.0); Platelet Count 294 10^3/uL (150-450); Red Blood Count 3.98 10^6/uL (4.20-5.40); Red Cell Distribution Width 11.9 % (11.0-15.0); White Blood Count 3.8 10^3/uL (4.0-11.0)
[2025-04-24 11:35] LABS: Estimated Average Glucose 108 mg/dL; Glycohemoglobin A1C 5.4 % (4.5-6.2)
[2025-04-24 11:45] LABS: Alanine Aminotransferase 25 U/L (14-59); Albumin Level 3.5 g/dL (3.4-5.0); Alkaline Phosphatase 121 U/L (46-116); Anion Gap 9.2; Aspartate Amino Transferase 20 U/L (15-37); BUN Creatinine Ratio 27.4; Bilirubin Total 0.4 mg/dL (0.2-1.0); Calcium 8.8 mg/dL (8.5-10.1); Carbon Dioxide 29.7 mmol/L (21.0-32.0); Chloride 100 mmol/L (98-107); Chol HDL Ratio 1.7; Cholesterol 216 mg/dL (<=200); Estimated GFR (African America >60 (>=60 mL/min/1.73m^2); Estimated GFR (Non-African Ame >60 (>=60 mL/min/1.73m^2); Free T3 2.12 pg/mL (2.18-3.98); Globulin 3.6 g/dL; Glucose 93 mg/dL (74-106); HDL Cholesterol 125 mg/dL (40-60); Potassium 3.9 mmol/L (3.5-5.1); Sodium 135 mmol/L (136-145); Thyroid Stimulating Hormone 2.474 uIU/mL (0.358-3.740); Total Protein 7.1 g/dL (6.4-8.2); Triglycerides 54 mg/dL (<=150); VLDL CHOLESTEROL 10.8 mg/dL
[2025-04-24 12:29] LABS: Percent Iron Saturation 55.1 %
[2025-04-24 12:54] LABS: Free T4 0.77 ng/dL (0.76-1.46)
== END 2025-04-24 10:35 | disposition home or self-care (01) ==
LOC: LAB 10:38
PROVIDERS: PCP Family Medicine; Visit Provider Family Medicine
DX: Z79.899 Other long term (current) drug therapy (principal); E03.9 Hypothyroidism, unspecified; E78.5 Hyperlipidemia, unspecified; E55.9 Vitamin D deficiency, unspecified; R73.9 Hyperglycemia, unspecified
CPT/HCPCS: 36415; 80053; 80061; 82306; 82728; 83036; 83540; 83550; 84439; 84443; 84481; 85025

== ENCOUNTER 2025-07-04 12:53 | Outpatient (RCR) | payer MEDICARE, SELFPAY ==
[2025-07-04 12:55] VITALS: BP 115/78; PULSE 70; TEMP 35.6; O2SAT 97
[2025-07-04 13:05] LABS: Calcium 8.9 mg/dL (8.5-10.1); Estimated GFR (African America >60 (>=60 mL/min/1.73m^2); Estimated GFR (Non-African Ame >60 (>=60 mL/min/1.73m^2)
[2025-07-04] MEDS: DENOSUMAB 60 MG/ML SYRINGE SUBQ (13:28)
== END 2025-07-07 23:59 | disposition home or self-care (01) ==
LOC: LAB 12:53
PROVIDERS: PCP Family Medicine; Visit Provider Obstetrics & Gynecology
DX: M81.0 Age-related osteoporosis without current pathological fracture (principal); Z78.0 Asymptomatic menopausal state
CPT/HCPCS: 36415; 82310; 82565; 96372; J0897

== ENCOUNTER 2025-08-09 07:47 | Outpatient (OUT) | payer MEDICARE, SELFPAY ==
--- OUTSIDE RECORDS SUMMARY | 2025-05-10 09:24 | XMS_ITS ---
Author Name Auto Generated Organization OHIP Support Name Relationship Address Phone BRANDAN STEINBERGA Next of [facility] [place] [address] + DIANDRA GUPTA Next of [facility] [address] [facility] [place] [address] + ~([phone] MARYAN MONICA Next of [facility] [place] [address] + DIANDRA GUPTA Next of [address] [place] [address] + ~([address] MONICA STEINBERG Next of [facility] [place] [address] + DIANDRA GUPTA Next of Kin [address] [facility] [facility] [place] [address] + ~([address] MONICA STEINBERG Next of [facility] [place] [address] + DIANDRA GUPTA Next of [facility] [address] [facility] [facility] [place] [address] + ~(419 MONICA STEINBERG Next [place] [address] + DIANDRA GUPTA Next of Kin [address] [facility] [facility] [place] [address] + ~(419 MONICA STEINBERG Next of [facility] [place] [address] + DIANDRA GUPTA Next of [facility] [address] [facility] [facility] [place] [address] + ~(419 MONICA STEINBERG Next of [facility] [place] [address] + DIANDRA GUPTA Next of [facility] [address] [facility] [place] [address] + ~(105 Care Team Providers Care Kiln Transfer Operator Name Role Phone TREVONEZEQUIEL JOHNSON Attending Unavailable VINCENT AGUILAR Attending Unavailable FERMIN ROBLEDO Attending Unavailable FERMIN ROBLEDO Referring Unavailable GINNY GRESHAM Attending Unavailable GINNY GRESHAM Attending Unavailable PROBLEMS No Problem Records Found PROCEDURES No Procedure Records Found RESULTS No Result Records Found ALLERGIES No Allergies Records Found ENCOUNTERS ADMIT/DISCHARGE ACCOUNT NUMBER ADMITTING ENCOUNTER CLASS LOCATION SOURCE 05/10/2025/ 5 [id number] Ambulatory Building:NOM S NEURO [facility] EPIC 02/08/2025/ 5 [id number] Ambulatory Building:[facility] NEURO [facility] EPIC 12/18/2024/ 5 [id number] Ambulatory Building:BSR NEURO [facility] EPIC 11/28/2024/ 5 [id number] Ambulatory Building:NOM S BCP OB [facility] EPIC 11/16/2024/ 5 [id number] Ambulatory Building:BSR NEURO [facility] EPIC 11/13/2024/ 5 [id number] Ambulatory Building:BSR NEURO [facility] EPIC 10/26/2024/ 4 [id number] Ambulatory Building:BSR NEURO [facility] EPIC PAYERS ENCOUNTER GUARANTOR PAYER SUBSCRIBER SOURCE 05/10/2025 MIKEY NANCE: [place] [address]Zrp: () Primary Insurance:HUMAN MEDICARE ADVANTAGEPolicy Number: [id number] Date:2019-05-08 MIKEY NANCE: [id number] [place] [address] [facility] 02/08/2025 MIKEY NANCE: [place] [address]Ogy: (HP) Primary Insurance:HUMAN MEDICARE ADVANTAGEPolicy Number: [id number] Date:2019-05-08 MIKEY NANCE: [id number] [place] [address] [facility] EPIC 12/18/2024 MIKEY MONTEZDOB: [place] [address]Jcn: (HP) Primary Insurance:[employer] MEDICARE ADVANTAGEPolicy Number: [id number] Date:2019-05-08 MIKEY MONTEZDOB: [id number] [place] [address] [facility] EPIC 11/28/2024 MIKEY MONTEZDOB: [place] [address]Edq: (HP) Primary Insurance:HU[employer] MEDICARE ADVANTAGEPolicy Number: [id number] Date:2019-05-08 MIKEY MONTEZDOB: [id number] [place] [id number] [facility] EPIC 11/16/2024 MIKEY MONTEZDOB: [place] [address]Ggq: (HP) Primary Insurance:HU[employer]NA MEDICARE ADVANTAGEPolicy Number: [id number] Date:2019-05-08 MIKEY Anderson MELIDADOB: [id number] [place] [id number] [facility] EPIC 11/13/2024 MIKEY MONTEZDOB: [place] [address]Bgi: (HP) Primary Insurance:HU[employer]NA MEDICARE ADVANTAGEPolicy Number: [id number] Date:2019-05-08 MIKEY MONTEZDOB: [id number] [place] [address] [facility] EPIC 10/26/2024 MIKEY MONTEZDOB: [place] [address]Vek: (HP) Primary Insurance:HU[employer]NA MEDICARE ADVANTAGEPolicy Number: [id number] Date:2019-05-08 MIKEY NANCE: [id number] [place] [address] [facility] EPIC
--- NOTE | 2025-08-09 09:56 | MM_ITS ---
Patient Name: MIKEY MONTEZ MR#: [id number] : 1965 Exam Date: 08/09/2025 Ordering Doctor: DR EZEQUIEL LESTER . RADIOLOGY REPORT PROCEDURE: MM TOMOSYNTHESIS SCREENING BI COMPARISON: MM TOMOSYNTHESIS SCREENING BI, 08/07/2024. MM TOMOSYNTHESIS SCREENING BI, 08/04/2023. MG MAMM SCREEN 3D ELENA CAD, 06/02/2021. MG MAMM ELENA SCRN W CAD DIG, 02/23/2014. INDICATIONS: screening Calculator Name NCI Breast Cancer Risk Assessment Tool 5 Year Breast Cancer Risk 1.50% Lifetime Breast Cancer Risk 8.50% Personal Breast Cancer No Personal Ovarian Cancer No Treatments None Family Cancers Grandfather-maternal with lung cancer at age 35. LOCATION: [facility] BREAST COMPOSITION: The breasts are almost entirely fatty. FINDINGS: RIGHT BREAST: No significant suspicious finding. LEFT BREAST: No significant suspicious finding. DIAGNOSTIC CATEGORY 1--NEGATIVE. NO CHANGE FROM COMPARISON ASSESSMENT. RECOMMENDATIONS: ROUTINE MAMMOGRAM AND CLINICAL EVALUATION IN 12 MONTHS. Dictated by: Avelino Mendez MD on 08/09/2025 at 17:08 Approved by: Avelino Mendez MD on 08/09/2025 at 17:11
== END 2025-08-09 07:48 | disposition home or self-care (01) ==
LOC: MAMMO 07:49
PROVIDERS: PCP Family Medicine; Visit Provider Obstetrics & Gynecology
DX: Z01.419 Encounter for gynecological examination (general) (routine) without abnormal findings (principal); Z12.31 Encounter for screening mammogram for malignant neoplasm of breast; M81.0 Age-related osteoporosis without current pathological fracture; Z80.1 Family history of malignant neoplasm of trachea, bronchus and lung
CPT/HCPCS: 77063; 77067; 82310

== ENCOUNTER 2025-08-09 07:51 | Outpatient (OUT) | payer MEDICARE, SELFPAY ==
--- OUTSIDE RECORDS SUMMARY | 2024-06-22 09:00 | XMS_ITS | Continuity of Care Document ---
Author Organization [facility] Address [address] [place] [address] Phone Care Team Providers Care Toby Maker Name Role Phone Karyn Benjamin CNP Unavailable Unavailable Procedures Procedure Date OFFICE/OUTPATIENT VISIT, EST OFFICE/OUTPATIENT VISIT, EST POSTOP FOLLOW-UP VISIT POSTOP FOLLOW-UP VISIT LAP SLEEVE GASTRECTOMY Sleeve Gastrectomy OFFICE/OUTPATIENT VISIT, EST PSYCH DIAGNOSTIC EVALUATION PSYCL/NRPSYC TST PHY/QHP PSYCL/NRPSYC TST PHY/QHP EA OFFICE/OUTPATIENT VISIT, NEW OFFICE/OUTPATIENT VISIT, NEW PSYCH DIAGNOSTIC EVALUATION PSYCL/NRPSYC TST PHY/QHP PSYCL/NRPSYC TST PHY/QHP EA Advance Directives Directive Yes / No Effective Date File Name No Information Encounters Encounter Description Practice Location Reason(s) For Visit Diagnoses Date Provider Providers Copied on Encounter OFFICE/OUTPAT IENT VISIT, [facility], [address], [place], [place], [id number], [place] tel:[phone] [facility] No Information Cassidy Boss. [address], [place], [place], [address], [place]. tel:[phone] Referring Provider: Karyn Benjamin, [address], [place], [address] . tel:[phone] OFFICE/OUTPAT IENT VISIT, [facility], [address] [place] [address] [address], [place], [place], [address], [place] tel:[phone] [facility] No Information Cassidy Kidda. [address] [place] [address] [address], [place], [place], [address], [place]. tel:[phone] Referring Provider: Karyn Benjamin, [facility] [address], [place], [address] . tel:[phone] [facility] [employer] [facility], [address] [place] [address] [address], [place], [place], [address], [place] tel:[phone] [facility] No Information Cassidy Boss. [address] [place] [address] [address], [place], [place], [id number], [place]. tel:[phone] Referring Provider: Karyn Benjamin, [address] [place] [address] [address], [place], [address] . tel:[phone] [facility] [employer] [facility], [address] [place] [address] [address], [place], [place], [address], [place] tel:[phone] [facility] No Information Cassidy Boss. [address] [place] [address] [address], [place], [place], [address], [place]. tel:[phone] Referring Provider: Karyn Benjamin, [facility] [address], [place], [address] . tel:[phone] [facility] [employer] [facility], [address] [place] [address] [address], [place], [place], [address], [place] tel:[phone] [facility] No Information Karina Carrasco. [address] [place] [address] [address], [place], [place], [address], [place]. tel:[phone] Referring Provider: Danilo Lema, [address], [place], [address] . tel:[phone] [facility], [address] [place] [address] [address], [place], [place], [address], [place] tel:[phone] [facility] No Information Cassidy Boss. [address], [place], [place], [id number], [place]. tel:[phone] Referring Provider: Karyn Benjamin, [address], [place], [address] . tel:[phone] OFFICE/OUTPAT IENT VISIT, [facility] [employer] [facility], [address] [place] [address] [address], [place], [place], [id number], [place] tel:[phone] [facility] No Information Karina Carrasco. [address] [place] [address] [address], [place], [place], [address], [place]. tel:[phone] Referring Provider: Danilo Lema, [address], [place], [address] . tel:[phone] PSYCH DIAGNOSTIC EVALUATION [facility] [employer] [facility], [address] [place] [address] [address], [place], [place], [id number], [place] tel:[phone] [facility] No Information Corbin Castaneda. [address] [place] [address] [address], [place], [place], [address], [place]. tel:[phone] Referring Provider: Leonel Alaniz, [address], [place], [address] . tel:[phone] OFFICE/OUTPAT IENT VISIT, [facility] [employer] [facility], [address] [place] [address] [address], [place], [place], [id number], [place] tel:[phone] [facility] No Information Karina Carrasco. [facility] [address], [place], [place], [id number], [place]. tel:[phone] Referring Provider: Danilo Lema, [address], [place], [address] . tel:[phone] OFFICE/OUTPAT IENT VISIT, [facility], [address] [place] [address] B, [place], [place], [id number], tel:[phone] [facility] No Information Karina Carrasco. [address] [place] [address] [address], [place], [place], [id number], [place]. tel:[phone] Referring Provider: Danilo Lema, [address], [place], [address] . tel:[phone] PSYCH DIAGNOSTIC EVALUATION [facility] [facility], [address] [place] [address] B, [place], [place], [id number], tel:[phone] [facility] No Information No Information Family History Family Member Type Diagnosis Age At Onset No Information Payers Payer name Insurance type Covered republican ID Authornoheliaa timariposa(s) [employer] Choice And Gold Choice 16 [id number] Social History Type Description Quantity Date Captured Comments Sex Female Smoking Status No Information Chief Complaint And Reason For Visit No Information Reason For Referral Reason For Referral No Information History Of Present Illness Encounter Date Complaint History Of Prese nt Illness No Information Functional Status Date Functional Assessmen t No Information Instructions Date Instruction Additional Infor mation No Information Assessments Type Assessment Date No Information Patient Care Teams Name Effective Dates (start - stop) Status Members No Information
--- OUTSIDE RECORDS SUMMARY | 2025-05-10 09:24 | XMS_ITS ---
Author Name Auto Generated Organization OHIP Support Name Relationship Address Phone BRANDAN STEINBERGA [place] [place] [address] + DIANDRA GUPTA Next of [facility] [address] [facility] [place] [address] + ~[phone] MARYAN [place]ICA [place] [facility] [place] [address] + DIANDRA GUPTA Next of [address] [place] [address] + ~([phone] MONICA STEINBEGR [place] [facility] [place] [address] + DIANDRA GUPTA Next of Kin [address] [facility] [place] [address] + ~([phone] MONICA STEINBERG [place] [facility] [place] [address] + DIANDRA GUPTA Next of [facility] [address] [facility] [place] [address] + ~([phone] MONICA STEINBERG Next of [place] [address] + DIANDRA GUPTA Next of Kin [address] [facility] [place] [address] + ~(419 MONICA STEINBERG [place] [facility] [place] [address] + DIANDRA GUPTA Next of [facility] [address] [place] [place] [address] + ~(419 MONICA STEINBERG [place] [facility] [place] [address] + DIANDRA GUPTA Next of [facility] [address] [place] [address] + ~[phone] Care Team Providers Care Geothermal Production Manager Name Role Phone TREVONEZEQUIEL JOHNSON Attending Unavailable VINCENT AGUILAR Attending Unavailable FERMIN ROBLEDO Attending Unavailable FERMIN ROBLEDO Referring Unavailable GINNY GRESHAM Attending Unavailable GINNY GRESHAM Attending Unavailable PROBLEMS No Problem Records Found PROCEDURES No Procedure Records Found RESULTS No Result Records Found ALLERGIES No Allergies Records Found ENCOUNTERS ADMIT/DISCHARGE ACCOUNT NUMBER ADMITTING ENCOUNTER CLASS LOCATION SOURCE 05/10/2025/ 5 [id number] Ambulatory Building:NOM S NEURO [facility] EPIC 02/08/2025/ 5 [id number] Ambulatory Building:NOM S NEURO [facility] EPIC 12/18/2024/ 5 [id number] Ambulatory Building:BSR NEURO [facility] EPIC 11/28/2024/ 5 [id number] Ambulatory Building:NOM S BCP OB [facility] EPIC 11/16/2024/ 5 [id number] Ambulatory Building:BSR NEURO [facility] EPIC 11/13/2024/ 5 [id number] Ambulatory Building:BSR NEURO [facility] EPIC 10/26/2024/ 4 [id number] Ambulatory Building:BSR NEURO [facility] EPIC PAYERS ENCOUNTER GUARANTOR PAYER SUBSCRIBER SOURCE 05/10/2025 MIKEY NANCE: [place] [address]Zxi: () Primary Insurance:HUMAN MEDICARE ADVANTAGEPolicy Number: [id number] Date:2019-05-08 MIKEY NANCE: [id number] [place] [address] [facility] 02/08/2025 MIKEY NANCE: [place] [address]Lam: (HP) Primary Insurance:HUMAN MEDICARE ADVANTAGEPolicy Number: [id number] Date:2019-05-08 MIKEY NANCE: [id number] [place] [address] [facility] EPIC 12/18/2024 MIKEY MONTEZDOB: [place] [address]Fqp: (HP) Primary Insurance:HUMANA MEDICARE ADVANTAGEPolicy Number: [id number] Date:2019-05-08 MIKEY MONTEZDOB: [id number] [place] [address] [facility] EPIC 11/28/2024 MIKEY MONTEZDOB: [place] [address]Yii: (HP) Primary Insurance:HUMANA MEDICARE ADVANTAGEPolicy Number: [id number] Date:2019-05-08 MIKEY MONTEZDOB: [id number] [place] [id number] [facility] EPIC 11/16/2024 MIKEY MONTEZDOB: [place] [address]Jmf: (HP) Primary Insurance:HUMANA MEDICARE ADVANTAGEPolicy Number: [id number] Date:2019-05-08 MIKEY Anderson MELIDADOB: [id number] [place] [id number] [facility] EPIC 11/13/2024 MIKEY [place]TEZDOB: [place] [address]Gfc: (HP) Primary Insurance:HUMANA MEDICARE ADVANTAGEPolicy Number: [id number] Date:2019-05-08 MIKEY MONTEZDOB: [id number] [place] [address] [facility] EPIC 10/26/2024 MIKEY MONTEZDOB: [place] [address]Uzu: (HP) Primary Insurance:HUMANA MEDICARE ADVANTAGEPolicy Number: [id number] Date:2019-05-08 MIKEY NANCE: [id number] [place] [address] [facility] EPIC
--- OUTSIDE RECORDS SUMMARY | 2025-08-09 07:57 | XMS_ITS | Encounter Summary ---
Author Organization [facility] Address [address] [place] [address] Care Team Providers Care Salt Manager Name Role Phone Lashaun Harris Primary Care Provider [phone] Source Comments In the event this information is protected by the Federal Confidentiality of Alcohol and Drug AbusePatient Records regulations: The Federal rules restrict any use of the information to criminally investigate or prosecute any alcohol or drug abuse patient.[facility] Encounter Details Date Type Department Care Team (Late st Contact Info) Description 11/08/2022 Patient Msg Hematology/Oncology [address] [place] [address] [place], [place] [id number] Provider, Ccf Appointment Cancellation Request Social History Tobacco Use Types Packs/Day Years Used Date Smoking Tobacco: Never Passive Smoke Exposure: Past Smokeless Tobacco: Never Alcohol Use Standard Drinks/Week Comments No 0 (1 standard drink = 0.6 oz pur e alcohol) PHQ-2 Answer Date Recorded PHQ-2 score 0 08/11/2022 Comments No Sex and Gender Information Value Date Recorded Sex Assigned at Not on file Legal Sex Female 8:13 AM EST Gender Identity Not on file Sexual Orientation Not on file documented as of this encounter Functional Status * Are you deaf or do you have serious difficulty hearing? Answer Date of Assessment Author No 09/20/2014 9:16 AM EST Inder Resendez ise * Are you blind or do you have serious difficulty seeing, even when wearing glasses? Answer Date of Assessment Author No 09/20/2014 9:16 AM EST Inder Resendez ise * Do you have serious difficulty walking or climbing stairs? Answer Date of Assessment Author No 09/20/2014 9:16 AM EST Inder Resendez ise * Do you have difficulty dressing or bathing? Answer Date of Assessment Author No 09/20/2014 9:16 AM EST Inder Resendez ise * Because of a physical, mental, or emotional condition, do you have difficulty doing errands alone such as visiting a doctor's office or shopping? Answer Date of Assessment Author No 09/20/2014 9:16 AM Inder New ise documented as of this encounter Mental Status * Because of a physical, mental, or emotional condition, do you have serious difficulty concentrating, remembering, or making decisions? Answer Entry Date Author No 09/20/2014 9:16 AM Inder New ise documented in this encounter Plan of Treatment Not on file documented as of this encounter Visit Diagnoses Not on filedocumented in this encounter Care Teams Salt Manager Relationship Specialty Start Date End Date Lashaun Harris [address] [place] [phone] PCP - General Neurology 07/29/22 documented as of this encounter
--- OUTSIDE RECORDS SUMMARY | 2025-08-09 07:57 | XMS_ITS | Encounter Summary ---
Author Organization [facility] Address [address] [place] [address] Care Team Providers Care C.O.D. Clerk Name Role Phone Lashaun Harris Primary Care Provider [phone] Source Comments In the event this information is protected by the Federal Confidentiality of Alcohol and Drug AbusePatient Records regulations: The Federal rules restrict any use of the information to criminally investigate or prosecute any alcohol or drug abuse patient.[facility] Encounter Details Date Type Department Care Team (Late st Contact Info) Description 11/08/2022 Patient Msg Hematology/Oncology [facility] [place] [address] Ricci Borrero MD [address] [place] [address] [place] [address] Appointment Cancellation Request Social History Tobacco Use [...] No 09/20/2014 9:16 AM Inder New ise * Are you blind or do you have serious difficulty seeing, even when wearing glasses? Answer Date of Assessment Author No 09/20/2014 9:16 AM Inder New ise * Do you have serious difficulty walking or climbing stairs? Answer Date of Assessment Author No 09/20/2014 9:16 AM Inder New ise * Do you have difficulty dressing or bathing? Answer Date of Assessment Author No 09/20/2014 9:16 AM Inder New ise * Because of a physical, mental, [...] Author No 09/20/2014 9:16 AM Inder New issander documented in this encounter Plan of Treatment Not on file documented as of this encounter Visit Diagnoses Not on filedocumented in this encounter Care Teams C.O.D. Clerk Relationship Specialty Start Date End Date Lashaun Harris [address] [facility] [address] [place] [phone] PCP - General Neurology 07/29/22 documented as of this encounter
--- OUTSIDE RECORDS SUMMARY | 2025-08-09 07:57 | XMS_ITS | Encounter Summary ---
Author Organization [facility] Address [address] [facility] [place] [address] Care Team Providers Care Agricultural Extension Educator Name Role Phone Justo Nash MD Primary Care Provider [phone] Encounter Details Date Type Department Care Team (Late Contact Info) Description 09/12/2024 Abstract [facility]upe [facility] [address] [place] [address] [place] [phone] Kylie Shrestha LPN Social History Tobacco Use Types Packs/Day Years Used Date Smoking Tobacco: Never Smokeless Tobacco: Never Alcohol Use Standard Drinks/Week Comments Never 0 (1 standard drink = 0.6 oz pure alcohol) caffeine: 2-3 cups per day coffee, soda Comments Unknown Sex and Gender Information Value Date Recorded Sex Assigned at Female 11/16/2023 8:52 AM EST Legal Sex Female 6:36 PM EDT Gender Identity Female 11/16/2023 8:52 AM EST Sexual Orientation Straight 11/16/2023 8: 52 AM EST documented as of this encounter Plan of Treatment Upcoming Encounters Date Type Department Care Team (Late Contact Info) Description 08/13/2025 10:40 AM EDT Office Visit [facility] [address] [facility] [address] [place] [phone] Timothy Weaver MD [address] [facility] [place] [address] 12/03/2025 1:00 PM EST Office Visit [facility] [address] [facility] [place] [address] Trevor Wheeler DO [address] [place] [address] documented as of this encounter Visit Diagnoses Not on filedocumented in this encounter Care Teams Agricultural Extension Educator Relationship Specialty Start Date End Date Justo Nash MD [address] [place] [address] PCP - General Family Medicine 11/23/23 documented as of this encounter
--- OUTSIDE RECORDS SUMMARY | 2025-08-09 07:57 | XMS_ITS | Encounter Summary ---
Author Organization [facility] Address [address] [place] [address] Care Team Providers Care Pit Tanner Name Role Phone Lashaun Harris Primary Care Provider Source Comments In the event this information is protected by the Federal Confidentiality of Alcohol and Drug AbusePatient Records regulations: The Federal rules restrict any use of the information to criminally investigate or prosecute any alcohol or drug abuse patient.[facility] Encounter Details Date Type Department Care Team (Late st Contact Info) Description 11/08/2022 Patient Msg Hematology/Oncology [address] [place] [address] [place], [place] [phone] Provider, Ccf Appointment Cancellation Request Social History [...] on filedocumented in this encounter Care Teams Pit Tanner Relationship Specialty Start Date End Date Lashaun Harris [address] [place] [phone] PCP - General Neurology 07/29/22 documented as of this encounter
--- OUTSIDE RECORDS SUMMARY | 2025-08-09 07:57 | XMS_ITS | Encounter Summary ---
Author Organization [facility] Address [address] [place] [address] Care Team Providers Care Hooker Off Name Role Phone Justo Nash DO Primary Care Provider [phone] Lashaun Harris Primary Care Provider [phone] Source Comments In the event this information is protected by the Federal Confidentiality of Alcohol and Drug AbusePatient Records regulations: The Federal rules restrict any use of the information to criminally investigate or prosecute any alcohol or drug abuse patient.[facility] Encounter Details Date Type Department Care Team (Latest Contact Info) Description 07/21/2022 H&P External-NonCCF Provider, External, PA-C Do not enter address information under generic External Provider. Social History Tobacco Use Types Packs/Day Years Used Date Smoking Tobacco: Never Smokeless Tobacco: Never Alcohol Use Standard Drinks/Week Comments No 0 (1 standard drink = 0.6 oz pur e alcohol) Comments No Sex and Gender Information Value [...] Assessment Author No 09/20/2014 9:16 AM EST Mal Den ise * Do you have serious difficulty walking or climbing stairs? Answer Date of Assessment Author No 09/20/2014 9:16 AM EST Mal Den ise * Do you have difficulty dressing or bathing? Answer Date of Assessment Author No 09/20/2014 9:16 AM VIDHYA Resendez Den ise * Because of a physical, mental, or emotional condition, do you have difficulty doing errands alone such as visiting a doctor's office or shopping? Answer Date of Assessment Author No 09/20/2014 9:16 AM VIDHYA Resendez Inder ise documented as of this encounter Mental Status * Because of a physical, mental, or emotional condition, do you have serious difficulty concentrating, remembering, or making decisions? Answer Entry Date Author No 09/20/2014 9:16 AM VIDHYA Resendez Inder ise documented in this encounter Plan of Treatment Not on file documented as of this encounter Visit Diagnoses Not on filedocumented in this encounter Care Teams Hooker Off Relationship Specialty Start Date End Date Justo Nash DO [address] [place] [address] PCP - General Family Medicine 09/26/15 07/28/22 Lashaun Harris [address] [facility] [place] [address] PCP - General Neurology 07/29/22 documented as of this encounter
--- OUTSIDE RECORDS SUMMARY | 2025-08-09 07:57 | XMS_ITS | Clinical Summary ---
Author Organization [facility] Address [address] [place], [place] [id number] Care Team Providers Care Security Public Safety Officer Name Role Phone Lashaun Harris Hipolito Primary Care Provider [phone] Allergies Active Allergy Reactions Criticality Noted Date Comments Penicillins 03/13/2008 rash Phenobarbital 03/13/2008 Mental changes Medications VALACYCLOVIR 500 MG TAB Take one(1) tablet daily. 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 Family history of hemochromatosis 09/20/2014 Hemochromatosis 09/22/2012 Immunizations Immunization Administration Dates Next Due influenza (IIV4) vaccine, ag e 6 mo - 64 yr, quadrivalent, PF (AFLURIA, FLUARIX, FLULAVAL, FLUZONE) 08/05/2021,08/05/2020,07/23/2018 influenza (IIV4) vaccine, qu adrivalent (AFLURIA, FLULAVAL, FLUZONE) 10/17/2019 zoster (RZV) vaccine, recomb inant (SHINGRIX) 10/04/2020,08/05/2020 Family History Medical History Relation Comments Diabetes Father Obstructive Sleep Apnea Father Stroke Mother Relation Status Comments Father Alive Mother Alive Social History Tobacco Use Types Packs/Day Years Used Date Smoking Tobacco: Never Passive Smoke Exposure: Past Smokeless Tobacco: Never Tobacco Cessation:Counseling Given: No Alcohol Use Standard Drinks/Week Comments No 0 (1 standard drink = 0.6 oz pur e alcohol) PHQ-2 Answer Date Recorded PHQ-2 score 0 08/11/2022 Area Deprivation Index Answer Date Talha rded National Score (1-100), lower number is lower ri sk 86 12/01/2022 State Score (1-10), lower number is lower risk N ot on file 12/01/2022 Data from: https://www.neighborhoodatlas.[facility]/. Last address used for calculation [address] [place] [address] 12/01/2022 Comments No Sex and Gender Information Value Date Recorded Sex Assigned at Not on file Legal Sex Female 8:13 AM EST Gender Identity Not on file Sexual Orientation Not on file Last Filed Vital Signs Vital Sign Reading Time Taken Comments Blood Pressure 152/89 07/29/2022 11:12 AM EDT Pulse 83 07/29/2022 11:12 AM EDT Temperature 36.2 C (97.1 F) 07/29/2022 11:12 AM EDT Respiratory Rate 16 07/29/2022 11:12 AM EDT Oxygen Saturation 98% 07/29/2022 11:12 AM EDT Inhaled Oxygen Concentration - - Weight 123 kg (271 lb 1.6 oz) 07/29/2022 11:12 A M EDT Height 165.1 cm (5' 5 ) 07/29/2022 11:12 AM EDT Body Mass Index 45.11 07/29/2022 11:12 AM EDT Plan of Treatment Health Maintenance Due Date Last Done Comments Anxiety Screening 1984 Depression Screening 1984 HIV Screening 1984 Hepatitis C Screening 1984 DTaP,Tdap,Td Vaccine (1 - Tdap) 1985 Hepatitis B Vaccine (1 of 3 - 19+ 3-dose series) 1985 Cervical Cancer Screening [address] M[address] Colonography 2011 Cologuard (FIT-DNA) 2011 Colonoscopy 2011 Colorectal Cancer Screening 2011 Fecal Occult Blood 2011 Lipid Screening 2011 Sigmoidoscopy 2011 Pneumococcal Vaccine: 50+ (1 of 1 - PCV) 2016 Medicare Advantage Annual We llness Visit 11/08/2024 Influenza Vaccine (#1) 2025 , 08/05/2020, 10/17/2019, Additional history exists Diabetes Screening 08/21/2025 08/21/2022, 07/29/2022 Shingrix Vaccine Completed 10/04/2020, 08/05/2020 Procedures Procedure Name Priority Date/Time Associated Diagnosis Comments COMPREHENSIVE METABOLIC PANEL Routine 08/21/2022 2:58 PM EDT 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) from Last 3 Months or Most Recently Relevant to Health Maintenance Results * (ABNORMAL) COMP METABOLIC PANEL (08/21/2022 2:58 PM EDT) Protein, Total 7.1 6.3 - 8.0 g/dL 08/21/2022 3:21 PM EDT [facility] Albumin 4.3 3.9 - 4.9 g/dL 08/21/2022 3:21 PM EDT [facility] Calcium, Total 9.5 8.5 - 10.2 mg/dL 08/21/2022 3:21 PM EDT [facility] Bilirubin, Total 0.3 0.2 - 1.3 mg/dL 08/21/2022 3:21 PM EDT [facility] Alkaline Phosphatase 167(H) 34 - 123 U/L 08/21/2022 3:21 PM EDT [facility] AST 16 13 - 35 U/L 08/21/2022 3:21 PM T [facility] ALT 13 7 - 38 U/L 08/21/2022 3:21 PM [facility] Glucose 110(H) 74 - 99 mg/dL 08/21/2022 3:21 PM [facility] Comment: The [place] Diabetes Association (ADA) provides guidance for cutoff [...] Standards of Medical Care in Diabetes 2016, [place] Diabetes Association. Diabetes Care. 2016.39(Suppl 1). BUN 10 7 - 21 mg/dL 08/21/2022 3:21 PM [facility] Creatinine 0.74 0.58 - 0.96 mg/dL 08/21/2022 3:21 PM [facility] Sodium 135(L) 136 - 144 mmol/L 08/21/2022 3:21 PM [facility] Potassium 4.6 3.7 - 5.1 mmol/L 08/21/2022 3:21 PM [facility] Chloride 98 97 - 105 mmol/L 08/21/2022 3:21 PM [facility] CO2 28 22 - 30 mmol/L 08/21/2022 3:21 PM [facility] Anion Gap 9 9 - 18 mmol/L 08/21/2022 3:21 PM [facility] Estimated Glomerular Filtration Rate 96 >=60 mL/min/1. 73m 08/21/2022 3:21 PM [facility] Comment:Estimated Glomerular Filtration Rate (eGFR) is calculated using the 2020 CKD-EPI creatinine equation. This equation utilizes serum creatinine, sex, and age as parameters. The creatinine assay has traceable calibration to isotope dilution- mass spectrometry. Refer to KDIGO guidelines for clinical interpretation. In patients with unstable renal function, e.g. those with acute kidney injury, the eGFR may not accurately reflect actual GFR. Blood BLOOD SPECIMEN / Unknown Venipuncture / Unknown 08/21/2022 2:58 PM EDT 08/21/2022 2:58 PM EDT us Ricci Borrero MD LABORATORY Final Result [facility] [address] [place] [address] from Last 3 Months or Most Recently Relevant to Health Maintenance Insurance [facility] MEDICARE Care Teams Security Public Safety Officer Relationship Specialty Start Date End Date Lashaun Harris [address] [place] [phone] PCP - General Neurology 07/29/22
--- OUTSIDE RECORDS SUMMARY | 2025-08-09 07:57 | XMS_ITS | Clinical Summary ---
Author Organization [employer] Address [facility] [id number] [address] [place] [address] Care Team Providers Care Biochemical Engineer Name Role Phone Justo Nash DO Primary Care Provider [phone] Allergies Active Allergy Reactions Criticality Noted Date Comments Penicillins Rash Low 05/17/2017 Phenobarbital Other (See Comments) 05/17/2017 Mood swings Medications carBAMazepine (CARBATROL) 300 mg 12 hr capsule Take 300 mg by mouth 4 (four) times a day. Active lacosamide (VIMPAT) 50 mg tablet Take 150 mg by mouth 2 (two) times a day. Active levothyroxine (SYNTHROID, LEVOTHROID) 25 MCG tablet Take 25 mcg by mouth daily. Active ergocalciferol (VITAMIN D2) 50,000 unit capsule Take 1 capsule by mouth once a week. Takes each Wednesday 6 Active valACYclovir (VALTREX) 1000 mg tablet Take 1,000 mg by mouth daily. 0 Active Active Problems Problem Noted Date Diagnosed Date Aneurysm of left internal carotid artery 020 Family History Medical History Relation Name Comments Asthma Mother Diabetes Sister Hypertension Sister Anesthesia problems Neg Hx Relation Name Status Comments Father Alive Mother Alive Sister Social History Tobacco Use Types Packs/Day Years Used Date Smoking Tobacco: Never Smokeless Tobacco: Never Alcohol Use Standard Drinks/Week Comments No 0 (1 standard drink = 0.6 oz pur e alcohol) PHQ-2 Answer Date Recorded Total Score 1 01/02/2020 Childcare Answer Date Recorded Childcare Unknown 04/19/2019 Employment Answer Date Recorded Employment Unknown 04/19/2019 Purpose - Life Answer Date Recorded Purpose and direction in life Unknown Comments No Sex and Gender Information Value Date Recorded Sex Assigned at Not on file Legal Sex Female 12:04 PM EDT Gender Identity Not on file Sexual Orientation Not on file Last Filed Vital Signs Vital Sign Reading Time Taken Comments Blood Pressure 134/81 01/05/2020 12:55 PM EST Pulse 88 01/05/2020 12:55 PM EST Temperature 36.5 C (97.7 F) 01/05/2020 8:35 AM EST Respiratory Rate 16 01/05/2020 12:55 PM EST Oxygen Saturation 98% 01/05/2020 12:55 PM EST Inhaled Oxygen Concentration - - Weight 124.3 kg (274 lb) 01/05/2020 8:35 AM EST Height 165.1 cm (5' 5 ) 01/05/2020 8:35 AM EST Body Mass Index 45.6 01/05/2020 8:35 AM EST Plan of Treatment Health Maintenance Due Date Last Done Comments Depression Screening 1978 Tobacco Screening 1978 Adult BMI Screening 1984 DTaP,Tdap and Td Vaccines (1 - Tdap) 1985 Zoster (Shingles) Vaccine (1 of 2) 2016 Influenza Vaccine 07/09/2025 10/17/2019, 07/23/2018 Medical Devices Implanted Type [employer] Device Identifier Shelf Expiration Date Model / Serial / Lot Scr Bn 40mm 18mm 6.7mm Slf Drl - [id number] Implanted:Qty: 1 on 05/18/2017 by Koffi Gaines MD at [facility] Screw Right: Ankle Arthrex [id number] 0 / / Scr Bn 45mm 18mm 6.7mm Slf Drl - [id number] Implanted:Qty: 2 on 05/18/2017 by Koffi Gaines MD at [facility] Screw Right: Ankle [employer] [id number] 5 / / Wshr 13mm Orth Ti - [id number] Implanted:Qty: 1 on 05/18/2017 by Koffi Gaines MD at [facility] Washer Right: Ankle [employer] [id number] / / Insurance [facility] MEDIC[facility] Care Teams Biochemical Engineer Relationship Specialty Start Date End Date Justo Nash DO [address] [place] [address] [address] [place], [place] [id number] PCP - General 05/18/17
--- OUTSIDE RECORDS SUMMARY | 2025-08-09 07:57 | XMS_ITS | Encounter Summary ---
Author Organization [facility] Address [address] [facility] [place] [address] Care Team Providers Care Fire Extinguisher Sprinkler Inspector Name Role Phone Scotty Ruiz MD Primary Care Provider [phone] Encounter Details Date Type Department Care Team (Late st Contact Info) Description 11/29/2023 Clinisync Result Encounter [facility] External Department Unsolicited Ezequiel Wheeler, DO [address] [place] [id number] Social History Tobacco Use Types Packs/Day Years Used Date Smoking Tobacco: Never Alcohol Use Standard Drinks/Week Comments [...] Description 08/13/2025 10:40 AM EDT Office Visit [facility] [address] [facility] [address] [facility] [address] [place] [phone] Timothy Weaver MD [address] [place] [facility] [place], [place] [phone] 12/03/2025 1:00 PM EST Office Visit [facility] [address] [place] [address] Ezequiel Wheeler DO [address] [place] [address] documented as of this encounter Procedures Procedure Name Priority Date/Time Associated Diagnosis Comments XR DEXA AXIAL SKELETON 11/29/2023 1:25 PM EST documented in this encounter Results * XR DEXA AXIAL SKELETON (11/29/2023 1:25 PM EST) Anatomical Region Laterality Modality Other 11/29/2023 1:25 PM EST Narrative 11/29/2023 1:27 PM EST [address] [address] XRay Report Signed Patient: DENISSE NEWTON MR#: [id number] : 1965 Acct:[id number] Age/Sex: 58 / F ADM Date: 11/29/23 Loc: [facility] Attending Dr: Ezequiel Wheeler D.O. Ordering Physician: Ezequiel Wheeler D.O. Date of Service: 11/29/23 Procedure(s): XR DEXA axial skeleton Accession Number(s): [id number] cc: zEequiel Wheeler D.O.; SCOTTY RUIZ [address] [address] Patient Name: DENISSE NEWTON MRN: [id number] date: 1965 Sex: F Assigned Patient Location: RAD Current Patient Location: RAD Accession/Order Number: [id number] Exam Date: 11/29/2023 13:05 Report Date: 11/29/2023 13:25 At the request of: EZEQUIEL WHEELER Procedure: XR DEXA axial skeleton EXAMINATION: XR DEXA axial skeleton, 11/29/2023 1:05 PM EST HISTORY: Postmenopausal State Z78.0 COMPARISON: 2018. TECHNIQUE: Dual-energy X-ray absorptiometry (DEXA) bone density study performed for the axial skeleton. HISTORY: Postmenopausal State Z78.0 FINDINGS: Bone mineral density of the lumbar spine L1-L4 measures 1.252 g/sq cm. T score 0.6. WHO classification: Normal. Lowest bone mineral density right femoral trochanter measures 0.548 g/sq cm. T score -2.6. WHO classification: Osteoporosis XR/XR DEXA axial skeleton IMPRESSION: Osteoporosis. High fracture risk Electronically authenticated by: SCOTTY MODI Date: 11/29/2023 13:25 Dictated By: Scotty Modi M.D. Signed By: 11/29/23 1327 DD/ 1325 TD/TT: Cell Tender Helper: Procedure Note Radiology, Radiologist, MD - 11/29/2023 [place] [address] XRay Report Signed Patient: DENISSE NEWTON AMR#: [id number] : 1965Acct:[id number] Age/Sex: 58 / FADM Date: 11/29/23 Loc: RAD Attending Dr: Ezequiel Wheeler D.O. Ordering Physician: Ezequiel Wheeler D.O. Date of Service: 11/29/23 Procedure(s): XR DEXA axial skeleton Accession Number(s): [id number] cc: Ezequiel Wheeler D.O.; SCOTTY RUIZ [place] [address] Patient Name: DENISSE NEWTON MRN: [id number] date: 1965 Sex: F Assigned Patient Location: [facility] Current Patient Location: RAD Accession/Order Number: [id number] Exam Date: 11/29/2023 13:05 Report Date: 11/29/2023 13:25 At the request of: EZEQUIEL WHEELER Procedure: XR DEXA axial skeleton EXAMINATION: XR DEXA axial skeleton, 11/29/2023 1:05 PM EST HISTORY: Postmenopausal State Z78.0 COMPARISON: 2018. TECHNIQUE: Dual-energy X-ray absorptiometry (DEXA) bone density study performed for the axial skeleton. HISTORY: Postmenopausal State Z78.0 FINDINGS: Bone mineral density of the lumbar spine L1-L4 measures 1.252 g/sq cm. T score 0.6. WHO classification: Normal. Lowest bone mineral density right femoral trochanter measures 0.548 g/sqcm. T score -2.6. WHO classification: Osteoporosis XR/XR DEXA axial skeleton IMPRESSION: Osteoporosis. High fracture risk Electronically authenticated by: SCOTTY MODI Date: 11/29/2023 13:25 Dictated By: Scotty Modi M.D. Signed By:11/29/23 1327 DD/ 1325 TD/TT: Cell Tender Helper: [facility] DO [facility] Final Result documented in this encounter Visit Diagnoses Not on filedocumented in this encounter Care Teams Fire Extinguisher Sprinkler Inspector Relationship Specialty Start Date End Date Scotty Ruiz MD [address] [place] [address] [place] [address] PCP - General Family Medicine 11/23/23 documented as of this encounter
[2025-08-12 08:09] LABS: Levetiracetam (Keppra), S 34.3 ug/mL (10.0-40.0)
== END 2025-08-09 07:52 | disposition home or self-care (01) ==
LOC: LAB 07:55
PROVIDERS: PCP Family Medicine; Visit Provider Psychiatry & Neurology Neurology
DX: G40.219 Localization-related (focal) (partial) symptomatic epilepsy and epileptic syndromes with complex partial seizures, intractable, without status epilepticus (principal)
CPT/HCPCS: 36415; 80177; 80235

== ENCOUNTER 2025-10-23 09:53 | Outpatient (OUT) | payer MEDICARE, SELFPAY ==
--- OUTSIDE RECORDS SUMMARY | 2025-10-23 10:01 | XMS_ITS | Clinical Summary ---
Author Organization [facility] Address [address] [place], [place] [address] Care Team Providers Care Franchise Consultant Name Role Phone Lashaun Harris Primary Care Provider [phone] Allergies Active AllergyReactionsCriticalityNoted EryhItdjbtzqHevmzirhesw72/06/2008 rash Wznedthhcqlhv90/06/2008 Mental changes Medications MedicationSigDispense QuantityRefillsLast FilledStart DateEnd DateStatus VALACYCLOVIR 500 MG TAB Take one(1) tablet daily. 0 ctive VITAMIN D 50,000 unit capsule 08/07/2016Active PREMARIN 0.625 mg tablet 09/15/2016Active levothyroxine (SYNTHROID) 25 mcg tablet 08/22/2016Active meloxicam (MOBIC) 15 mg tablet 09/14/2016Active calcium phosphate dibas/vit D3 (VITAMIN D, WITH CALCIUM, ORAL) 01/07/2016Active levETIRAcetam (KEPPRA) 1,000 mg tablet 02/06/2021ctive OXcarbazepine (TRILEPTAL) 300 mg tablet 11/08/2021ctive Active Problems ProblemNoted DateDiagnosed DateDisorder of iron ixbjbusfxl82/05/2022 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 gene08/12/2022Family history of uxumbcxtkqnqkug16/13/5383Lfkdhojrqaesekb56/15/2012 Immunizations ImmunizationAdministration DatesNext Dueinfluenza (IIV4) vaccine, age 6 mo - 64 yr, quadrivalent, PF (AFLURIA, FLUARIX, FLULAVAL, FLUZONE)08/05/2021,08/05/2020, 07/23/2018influenza (IIV4) vaccine, quadrivalent (AFLURIA, FLULAVAL, FLUZONE) 10/17/2019zoster (RZV) vaccine, recombinant (SHINGRIX)10/04/2020,08/05/2020 Family History Medical HistoryRelationCommentsDiabetesFatherObstructive Sleep ApneaFatherStroke MotherRelationStatusCommentsFatherAliveMotherAlive Social History Tobacco UseTypesPacks/DayYears UsedDateSmoking Tobacco: NeverPassive Smoke Exposure: PastSmokeless Tobacco: Never Tobacco Cessation:Counseling Given: No Alcohol UseStandard Drinks/WeekCommentsNo0 (1 standard drink = 0.6 oz pure alcohol)PHQ-2AnswerDate RecordedPHQ-2 drgba683/04/2022Area Deprivation Index AnswerDate RecordedNational Score (1-100), lower number is lower risk86 12/01/2022State Score (1-10), lower number is lower riskNot on file12/01/2022 Data from: https://www.neighborhoodatlas.[facility].edu/. Last address used for [address] [place], [place] [address]CommentsNoSex and Gender InformationValueDate RecordedSex Assigned at BirthNot on fileLegal SexFemale 10/09/2012 8:13 AM ESTGender IdentityNot on fileSexual OrientationNot on file Last Filed Vital Signs Vital SignReadingTime TakenCommentsBlood Ckeosyhn955/8909 11:12 AM EDT Kdcim5884 11:12 AM SBPNufotoqvnmk58.2 ??C (97.1 ??F)07/29/2022 11:12 AM EDTRespiratory Yhqw7390 11:12 AM EDTOxygen Cypliktobr11%07/29/2022 11:12 AM EDTInhaled Oxygen Concentration--Uakowf961 kg (271 lb 1.6 oz)07/29/2022 11:12 AM XWOEygahf636.1 cm (5' 5 )07/29/2022 11:12 AM EDTBody Mass Index45.11 07/29/2022 11:12 AM EDT Plan of Treatment Health MaintenanceDue DateLast DoneCommentsAnxiety Rudqtykvq86/31/1984Depression Bpwjdpnig30/31/1984HIV Dikrxynkx72/31/1984Hepatitis C Moricaawp92/31/1984 DTaP,Tdap,Td Vaccine (1 - Tdap)1985Cervical Cancer Rrprwjzsz11/31/1987 Mammogram Hggkflnlp94/31/2006CT Gqqejvflmnmu51/31/2011Cologuard (FIT-DNA) 09/07/20110981Iyrtrrdgxpg73/31/2011Colorectal Cancer Nhhalezdb05/31/2011Fecal Occult Blood2011Lipid Gnxtaolsx46/31/9598Inqiggrwussve39/31/2011Pneumococcal Vaccine: 50+ (1 of 1 - PCV)2016Covid-19 Vaccine ( season) 5002/17/2022, 10/11/2021, 02/07/2021, Additional history existsInfluenza Vaccine (#1)509/, 08/05/2020, 10/17/2019, Additional history existsDiabetes Grjjurzot83/14/931422, 07/29/2022hingrix Vaccine Mckbqiple48/27/2020, 08/05/2020 Procedures Procedure NamePriorityDate/TimeAssociated DiagnosisCommentsCOMPREHENSIVE METABOLIC SYVJTYewnyov79/14/2022 2:58 PM EDT 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) from Last 3 Months or Most Recently Relevant to Health Maintenance Results * (ABNORMAL) COMP METABOLIC PANEL (08/21/2022 2:58 PM EDT)ComponentValueRef RangeTest MethodAnalysis TimePerformed AtPathologist SignatureProtein, Total 7.16.3 - 8.0 g/dL08/21/2022 3:21 PM [facility] Albumin4.33.9 - 4.9 g/dL08/21/2022 3:21 [facility] LABCalcium, Total9.58.5 - 10.2 mg/dL08/21/2022 3:21 PM [facility] LABBilirubin, Total0.30.2 - 1.3 mg/dL08/21/2022 3:21 PM [facility] LABAlkaline Crtxvkocuft875(H)34 - 123 U/L 08/21/2022 3:21 PM [facility] RHFCPC6375 - 35 U/L 08/21/2022 3:21 PM [facility] DLMLQF567 - 38 U/L 08/21/2022 3:21 PM [facility] VTGKvppvmf791(H)74 - 99 mg/dL08/21/2022 3:21 PM [facility] LABComment: The [place] Diabetes Association (ADA) provides guidance for cutoff values for fasting glucose andrandom glucose. The ADA defines fasting as no [...] Standards of Medical Care in Diabetes 2016, [place] Diabetes Association. Diabetes Care. 2016.39(Suppl 1). DTU954 - 21 mg/dL08/21/2022 3:21 PM [facility] Creatinine0.740.58 - 0.96 mg/dL08/21/2022 3:21 PM [facility] IIPAaxkdm030(L)136 - 144 mmol/L1 3:21 PM [facility] LABPotassium4.63.7 - 5.1 mmol/L1 3:21 [address] [facility] MGKAigwbcuv3270 - 105 mmol/L1 3:21 PM EDT [facility] FGNRM13397 - 30 mmol/L1 3:21 PM EDT [facility] LABAnion Gap99 - 18 mmol/L1 3:21 PM [facility] LABEstimated Glomerular Filtration Rate96 >=60 mL/min/1.73m 08/21/2022 3:21 PM [facility]TNORT[facility] LABComment:Estimated Glomerular Filtration Rate (eGFR) is calculated using the 2020 CKD-EPI creatinine equation. This equation utilizes serum creatinine, sex, and age as parameters. The creatinine assay has traceable calibration to isotope dilution- mass spectrometry. Refer to KDIGO guidelines for clinical interpretation. In patients with unstable renal function, e.g. those with acute kidney injury, the eGFRmay not accurately reflect actual GFR.Specimen (Source)Anatomical Location / LateralityCollection Method / VolumeCollection TimeReceived TimeBloodBLOOD SPECIMEN / UnknownVenipuncture / Sfxrwte2808/21/2022 2:58 PM EDT1 2:58 PM EDT Narrative Authorizing ProviderResult TypeResult StatusRicci Borrero MDLABORATORYFinal ResultPerforming OrganizationAddressCity/State/ZIP CodePhone Number [facility] [address] [place] [address] from Last 3 Months or Most Recently Relevant to Health Maintenance Insurance Care Teams Team MemberRelationshipSpecialtyStart DateEnd Date Lashaun Harris [address] [facility] [address] [place] [phone] PCP - GeneralNeurology07/29/22
--- OUTSIDE RECORDS SUMMARY | 2025-10-23 10:01 | XMS_ITS | Clinical Summary ---
Author Organization [facility] Address [address] [place] [address] Care Team Providers Care Car Repairman Name Role Phone Scotty Ruiz MD Primary Care Provider [phone] Allergies Active AllergyReactionsCriticalityNoted DateCommentsPenicillinsRash,UnknownLow 03/13/2008 rash PhenobarbitalOther,AlrfYvf4003/13/2008 Mood swings Mental changes Rkohkkmxg70/01/1980Valproic Acid11/08/1979 Depakote Other Reaction(s): Mood Medications MedicationSigDispense QuantityRefillsLast FilledStart DateEnd DateStatus ergocalciferol (Vitamin D2) 1.25 MG (82432 UT) capsule 3Active folic acid (Folvite) 1 MG tablet 1 (one) time each day at the same timeActive levothyroxine (Synthroid, Levoxyl) 75 MCG tablet Indications:Acquired hypothyroidismTake 1 tablet (75 mcg) by mouth in the morning. Take before meals. 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 One tab by mouth twice a day. 60 tablet 5Active OXcarbazepine (Trileptal) 300 MG tablet Indications:Radiculopathy of sacral regionTake 2 tablets (600 mg) by mouth in the morning and 2 tablets (600 mg) before bedtime. 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 270 tablet /6Active valACYclovir (Valtrex) 1 g tablet Indications:Hx of cold soresTake 1 tablet (1,000 mg) by mouth Daily 90 tablet Discontinued(Reorder) levETIRAcetam (Keppra) 1000 MG tablet Indications:Radiculopathy of sacral regionTake 1.5 tablets (1,500 mg) by mouth in the morning and 1.5 tablets (1,500 mg) before bedtime. 270 tablet Discontinued(Reorder) Active Problems ProblemNoted DateDiagnosed DateBMI 45.0-49.9, adult05/10/2025Hyperlipidemia 05/10/2025Screening for malignant neoplasm of colon05/10/2025Osteoporosis 12/06/2024Postmenopausal state12/06/20248007Epialnm31/13/2024OSA (obstructive sleep apnea)04/20/20240036Zcboalub43/13/2024Migraine without aura and without status migrainosus, not podvxlntfel40/13/2024artial symptomatic epilepsy with complex partial seizures, intractable, without status jovxohhnfzj45/13/2024isorder of iron yknsbditbb10/05/2022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 gene 08/12/2022neurysm of left internal carotid artery (HHS-HCC)01/02/2020Family history of upybuoibrncxfsd03/13/8852Xrqfhgjtihzdtfd33/15/2012Hypothyroidism 02/03/2011Other byjjjmtdbzupiqvdim79/29/2011Vitamin D qxqjflxyae09/13/2010 Postartificial menopausal ixyywade40/18/3607Yucvknxi64/02/2008Herpes zoster 05/09/20086142Flculsvp64/02/2008 Encounters DateTypeDepartmentCare UqcsVpovrkoruvg46/21/2025Refill [facility] [address] [facility] [address] [place] [phone] Ya Benitez MA Partial symptomatic epilepsy with complex partial seizures, intractable, 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) (Primary Dx); Seizure (HCC)09/27/2025Refill [facility] [address] [place] [address] [place] [address] Lakshmi Mosley MA Hx of cold sores09/17/2025 1:00 PM ESTProcedure Visit [facility] [address] [place] [address] Partial symptomatic epilepsy with complex partial seizures, intractable, 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); Radiculopathy of sacral xhunda9009/17/20253644Ambnvi28/06/2025 10:40 AM EDTOffice Visit [facility] [address] [place] [address] Timothy Weaver MD Idiopathic progressive neuropathy (Primary Dx); Partial symptomatic epilepsy with complex partial seizures, intractable, 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); Seizure (HCC)08/13/2025amboo flowsheet [facility] [address] [place] [phone] Timothy Weaver MD 08/13/20259840Wxllqs56/02/2025linisync Result Encounter [facility] Unsolicited Ezequiel Wheeler DO from Last 3 Months Immunizations ImmunizationAdministration DatesNext MacXALZ-GZB-1 (COVID-19) vaccine, mRNA, spike protein, LNP, PF, 50 mcg/0.5 mL07/26/2024 Family History Medical HistoryRelationNameCommentsMigrainesBrotherMichaelParkinsonismFather RichardAlzheimer's diseaseMaternal GrandmotherAsthmaMotherDianneStrokeMother DianneTransient ischemic attackMotherDianneALSMother's BrotherAlzheimer's diseasePaternal GrandmotherGladysRelationNameStatusCommentsBrotherMichaelFather RichardAliveMaternal GrandmotherMotherDianneAliveMother's BrotherPaternal GrandmotherGladys Social History Tobacco UseTypesPacks/DayYears UsedDateSmoking Tobacco: NeverSmokeless Tobacco: Never Tobacco Cessation:Counseling Given: Not Answered Alcohol UseStandard Drinks/WeekCommentsNever0 (1 standard drink = 0.6 oz pure alcohol)caffeine: 2-3 cups per day coffee, sodaCommentsUnknownSex and Gender InformationValueDate RecordedSex Assigned at ZjehnIaohel09/09/2024 8:52 AM ESTLegal SjmIlkxce25/15/2023 6:36 PM EDTGender CcwzuvciYstiob02/09/2024 8:52 AM ESTSexual MfuyznabljnQbmsauna25/09/2024 8:52 AM EST Last Filed Vital Signs Vital SignReadingTime TakenCommentsBlood Rglykojh510/8208/13/2025 10:45 AM EDT Njeuj6053 12:58 PM ESTTemperature--Respiratory Rate--Oxygen Saturation 98%12/18/2024 12:58 PM ESTInhaled Oxygen Concentration--Wnnhew77.8 kg (198 lb) 08/13/2025 10:45 AM BLOHbpntq197.6 cm (5' 4 )08/13/2025 10:45 AM EDTBody Mass Index33.9908/13/2025 10:45 AM EDT Plan of Treatment DateTypeDepartmentCare Team (Latest Contact Info)Kvlifxfcjkh42/08/2026 9:00 AM ESTOffice Visit [facility] [address] [place] [address] Timothy Weaver MD [address] [facility] [address] [place] [address] [place] [id number] 12/03/2025 1:00 PM ESTOffice Visit [facility] [address] [facility] [place] [address] Ezequiel Wheeler, [address] [facility] [place] [address] Health MaintenanceDue DateLast DoneCommentsCT Vnbfdcbtcyml1966FIT-DNA 1966FIT1966FOBT1966 9134Blhtlkykzmwlm1966Pap Smear1987 Cervical Cancer Xdsuwwvpg36/31/1996HPV/Vppyyh5509/07/1996COVID-19 Vaccine ( season)509/, 08/18/2023, 10/15/2022, Additional history tssxjcMyeiolzgp735Colonoscopy2Colorectal Cancer Xxhzeslol44/02/2032Influenza BigtyzpDyharygyg74/22/2025, 07/19/2024, 08/18/2023, Additional history existsPneumococcal Vaccine: Pediatrics (0 to 5 Years) and At-Risk Patients (6 to 64 Years)Aged OutNo longer eligible based on patient's age to complete this topic Procedures Procedure NamePriorityDate/TimeAssociated DiagnosisCommentsMM TOMOSYNTHESIS SCREENING BI08/09/2025 5:11 PM EDT [facility] MUPGHUYWLKEDTWfrpvjr13/02/2025 8:15 AM EDT [facility] ZXFEQFDCUNUxhpqos18/02/2025 8:15 AM EDT from Last 3 Months Results * MM TOMOSYNTHESIS SCREENING BI (08/09/2025 5:11 PM EDT)Anatomical Region LateralityModalityOtherSpecimen (Source)Anatomical Location / Laterality Collection Method / VolumeCollection TimeReceived Time08/09/2025 5:11 PM EDT Narrative 08/09/2025 5:12 PM EDT [facility] ?[address] ? [place] [address] ? Mammography Report ? Signed ? Patient: NEWTON,DENISSE A ?MR#: [id number] ?? : 1965 ?Acct:[id number] ?? Age/Sex: 59 / F ?ADM Date: 08/09/25 ?? Loc: MAMMO ? Attending Dr: Ezequiel Wheeler D.O. ? Ordering Physician: Ezequiel Wheeler D.O. ?Results: ? Date of Service: 08/09/25 ?Follow Up: ? Procedure(s): MM tomosynthesis screening BI ?? Accession Number(s): [id number] ? cc: Ezequiel Wheeler D.O.; SCOTTY RUIZ ? Patient Name: ? DENISSE NEWTON ? MR#: [id number] ? : 1965 ? Exam Date: 08/09/2025 ?? Ordering Doctor: DR EZEQUIEL WHEELER . ? RADIOLOGY REPORT ? PROCEDURE: ? MM TOMOSYNTHESIS SCREENING BI ? COMPARISON: ? MM TOMOSYNTHESIS SCREENING BI, 08/07/2024. ??MM TOMOSYNTHESIS ?? SCREENING BI, 08/04/2023. ??MG MAMM SCREEN 3D ELENA CAD, 06/02/2021. ??MG MAMM ELENA ?? SCRN W CAD DIG, 02/23/2014. ? INDICATIONS: ? screening ? Calculator Name ? NCI Breast Cancer Risk Assessment Tool ?? 5 Year Breast Cancer Risk ? 1.50% ?? Lifetime Breast Cancer Risk ? 8.50% ?? Personal Breast Cancer ?No ?? Personal Ovarian Cancer ? No ?? Treatments ? None ?? Family Cancers ? Grandfather-maternal with lung cancer at age 35. ? LOCATION: ? [facility] ? BREAST COMPOSITION: ? The breasts are almost entirely fatty. ? FINDINGS: ? RIGHT BREAST: ??No significant suspicious finding. ? LEFT BREAST: ??No significant suspicious finding. ? DIAGNOSTIC CATEGORY 1--NEGATIVE. NO CHANGE FROM COMPARISON ASSESSMENT. ? RECOMMENDATIONS: ? ROUTINE MAMMOGRAM AND CLINICAL EVALUATION IN 12 MONTHS. ? Dictated by: Avelino Mendez MD on 08/09/2025 at 17:08 ? Approved by: Avelino Mendez MD on 08/09/2025 at 17:11 ? Dictated By: ?Avelino Mendez M.D. ? Signed By: ?08/09/251711 ? DD/ 1711 ? TD/TT: ? Housekeeper Cleaning Cooking: Procedure Note Radiology, Radiologist, MD - 08/09/2025 [place] [address] Mammography Report Signed Patient: DENISSE NEWTON AMR#: [id number] : 1965Acct:[id number] Age/Sex: 59 / FADM Date: 08/09/25 Loc: MAMMO Attending Dr: Ezequiel Wheeler D.O. Ordering Physician: Ezequiel Wheeler D.O.Results: Date of Service: 08/09/25Follow Up: Procedure(s): MM tomosynthesis screening BI Accession Number(s): [id number] cc: Ezequiel Wheeler D.O.; SCOTTY RIUZ Patient Name: DENISSE NEWTON MR#: [id number] : 1965 Exam Date: 08/09/2025 Ordering Doctor: DR EZEQUIEL WHEELER . RADIOLOGY REPORT PROCEDURE: MM TOMOSYNTHESIS SCREENING BI COMPARISON: MM TOMOSYNTHESIS SCREENING BI, 08/07/2024. MMTOMOSYNTHESIS SCREENING BI, 08/04/2023. MG MAMM SCREEN 3D ELENA CAD, 06/02/2021. MG MAMMBIL SCRN W CAD DIG, 02/23/2014. INDICATIONS: screening Calculator Name NCI Breast Cancer Risk Assessment Tool 5 Year Breast Cancer Risk 1.50% Lifetime Breast Cancer Risk 8.50% Personal Breast Cancer No Personal Ovarian Cancer No Treatments None Family Cancers Grandfather-maternal with lung cancer at age 35. LOCATION: [facility] BREAST COMPOSITION: The breasts are almost entirely fatty. FINDINGS: RIGHT BREAST: No significant suspicious finding. LEFT BREAST: No significant suspicious finding. DIAGNOSTIC CATEGORY 1--NEGATIVE. NO CHANGE FROM COMPARISON ASSESSMENT. RECOMMENDATIONS: ROUTINE MAMMOGRAM AND CLINICAL EVALUATION IN 12 MONTHS. Dictated by: Avelino Mendez MD on 08/09/2025 at 17:08 Approved by: Avelino Mendez MD on 08/09/2025 at 17:11 Dictated By: Avelino Mendez M.D. Signed By:08/09/251711 DD/ 10 TD/TT: Housekeeper Cleaning Cooking: Authorizing ProviderResult TypeResult StatusCorey Liam DOCLINISYNC IMAGINGFinal Result * [facility] LEVETIRACETAM (08/09/2025 8:15 AM EDT)ComponentValueRef RangeTest Method Analysis TimePerformed AtPathologist SignatureLEVETIRACETAM (KEPPRA), S34.3 10.0 - 40.0 ug/mLTBHComment: Performed at: ??BN - [facility] [address] ??[id number] Business And Services Instructor: Chata Patel MD, Phone: ??[phone] Specimen (Source)Anatomical Location / LateralityCollection Method / Volume Collection TimeReceived Time08/09/2025 8:15 AM EDT1 9:03 AM EDT Narrative [facility] - 08/14/2025 10:08 AM EDT Authorizing ProviderResult TypeResult StatusBrejovanni Weaver MDCLINISYNCFinal ResultPerforming OrganizationAddressCity/State/ZIP CodePhone Number [facility] TB * [facility] LACOSAMIDE (08/09/2025 8:15 AM EDT)ComponentValueRef RangeTest Method Analysis TimePerformed AtPathologist SignatureLACOSAMIDE9.75.0 - 10.0 ug/mLTBH Comment: This test was developed and its performance characteristics determined by [facility]. It has not been cleared or approved by the Food and Drug Administration. ? Limit of Detection 0.5 ??Mean plasma concentrations following maintenance dose ?200 mg/day ??4.99 +/- 2.51 ug/mL ?400 mg/day ??9.35 +/- 4.22 ug/mL ?600 mg/day 12.46 +/- 5.60 ug/mL Performed at: ??BN - [facility] [address] ??[id number] Business And Services Instructor: Chata Patel MD, Phone: ??[phone] Specimen (Source)Anatomical Location / LateralityCollection Method / Volume Collection TimeReceived Time08/09/2025 8:15 AM EDT1 9:03 AM EDT Narrative [facility] - 08/14/2025 10:08 AM EDT Authorizing ProviderResult TypeResult StatusBrejovanni Weaver MDCLINISYNCFinal ResultPerforming OrganizationAddressCity/State/ZIP CodePhone Number [facility] TBH from Last 3 Months Insurance Care Teams Team MemberRelationshipSpecialtyStart DateEnd Date Scotty Ruiz MD [address] [place] [address] [facility]
--- OUTSIDE RECORDS SUMMARY | 2025-10-23 10:01 | XMS_ITS | Clinical Summary ---
Author Organization [employer] Address [id number] [place] [address] Care Team Providers Care Trekking Guide Name Role Phone BrendanmakenzieJusto DO Primary Care Provider [phone] Allergies Active AllergyReactionsCriticalityNoted XdjjLtkihqgdXpqetodjnivRfwkEqt78/10/2017 PhenobarbitalOther (See Comments)05/17/2017 Mood swings Medications MedicationSigDispense QuantityRefillsLast FilledStart DateEnd DateStatus carBAMazepine (CARBATROL) 300 mg 12 hr capsule Take 300 mg by mouth 4 (four) times a day.Active lacosamide (VIMPAT) 50 mg tablet Take 150 mg by mouth 2 (two) times a day. Active levothyroxine (SYNTHROID, LEVOTHROID) 25 MCG tablet Take 25 mcg by mouth daily.Active ergocalciferol (VITAMIN D2) 50,000 unit capsule Take 1 capsule by mouth once a week. Takes each Mdrnjguef77/30/2016Active valACYclovir (VALTREX) 1000 mg tablet Take 1,000 mg by mouth daily. 11/22/2019Active Active Problems ProblemNoted DateDiagnosed DateAneurysm of left internal carotid artery 01/02/2020 Family History Medical HistoryRelationNameCommentsAsthmaMotherDiabetesSisterHypertensionSister Anesthesia problemsNeg HxRelationNameStatusCommentsFatherAliveMotherAliveSister Social History Tobacco UseTypesPacks/DayYears UsedDateSmoking Tobacco: NeverSmokeless Tobacco: NeverAlcohol UseStandard Drinks/WeekCommentsNo0 (1 standard drink = 0.6 oz pure alcohol)PHQ-2AnswerDate RecordedTotal Zimer554ChildcareAnswerDate MsroakdhInorjahzsWqcxoiz86/12/2019EmploymentAnswerDate RecordedEmploymentUnknown 04/19/2019Purpose - LifeAnswerDate RecordedPurpose and direction in lifeUnknown 1CommentsNoSex and Gender InformationValueDate RecordedSex Assigned at BirthNot on fileLegal JacDwakqp54/06/2015 12:04 PM EDTGender IdentityNot on fileSexual OrientationNot on file Last Filed Vital Signs Vital SignReadingTime TakenCommentsBlood Fwdpiomt608/8101/05/2020 12:55 PM EST Bfany903101/05/2020 12:55 PM ZJDJfhbuvzaezv93.5 ??C (97.7 ??F)01/05/2020 8:35 AM ESTRespiratory Tvvd822601/05/2020 12:55 PM ESTOxygen Wdwfgocjvb62%01/05/2020 12:55 PM ESTInhaled Oxygen Concentration--Uvqsrc547.3 kg (274 lb)01/05/2020 8:35 AM XYPVldbpb852.1 cm (5' 5 )01/05/2020 8:35 AM ESTBody Mass Index45.6001/05/2020 8:35 AM EST Plan of Treatment Health MaintenanceDue DateLast DoneCommentsDepression Gzyxphmxk13/31/1978Tobacco Zdohinqtf17/31/1978Adult BMI Bmqpspdka30/31/1984DTaP,Tdap and Td Vaccines (1 - Tdap)1985Zoster (Shingles) Vaccine (1 of 2)2016Influenza Vaccine 5112/18/2018, 07/23/2018 Medical Devices ImplantedTypeAreaManufacturerDevice IdentifierShelf Expiration DateModel / Serial / LotScr Bn 40mm 18mm 6.7mm Slf Drl - [id number] Implanted:Qty: 1 on 05/18/2017 by [facility]i [facility]aines MD [facility]: AnkleArthrex [id number] / / Scr Bn 45mm 18mm 6.7mm Slf Drl - [id number] Implanted:Qty: 2 on 05/18/2017 by [facility] AnkleArthrex [id number] / / Wshr 13mm Orth Ti - [id number] Implanted:Qty: 1 on 05/18/2017 by [facility]: [id number] / / Insurance Care Teams Team MemberRelationshipSpecialtyStart DateEnd Date Justo Nash DO [address] [place] [address] [facility]05/18/17
[2025-10-23 11:16] LABS: Glucose Urine UA NEGATIVE (NEGATIVE)
[2025-10-23 11:48] LABS: Iron 238.0 ug/dL (50.0-170.0); Percent Iron Saturation 71.7 %; Total Iron Binding Capacity 332.0 ug/dL (250.0-450.0)
[2025-10-23 12:02] LABS: Cholesterol 253 mg/dL (<=200); Free T3 2.00 pg/mL (2.18-3.98); HDL Cholesterol 137 mg/dL (40-60); Thyroid Stimulating Hormone 1.407 uIU/mL (0.358-3.740); Triglycerides 55 mg/dL (<=150); VLDL CHOLESTEROL 11.0 mg/dL
[2025-10-23 12:48] LABS: Ferritin 129.0 ng/mL (8.0-252.0)
== END 2025-10-23 09:54 | disposition home or self-care (01) ==
LOC: LAB 09:59
PROVIDERS: PCP Family Medicine; Visit Provider Family Medicine
DX: E03.9 Hypothyroidism, unspecified (principal); E55.9 Vitamin D deficiency, unspecified; R35.0 Frequency of micturition; E78.5 Hyperlipidemia, unspecified; R73.9 Hyperglycemia, unspecified
CPT/HCPCS: 36415; 80061; 81003; 82306; 82728; 83036; 83540; 83550; 84439; 84443; 84481; 87086

== ENCOUNTER 2025-10-24 13:14 | Outpatient (OUT) | payer MEDICARE, SELFPAY ==
--- OUTSIDE RECORDS SUMMARY | 2025-10-24 08:05 | XMS_ITS | Continuity of Care Document ---
Author Organization [facility] Address [address] [place] [address] Phone Care Team Providers Care Respiratory Equipment Assistant Name Role Phone Charity Justo ROTH Primary Care Provider Timothy Weaver MD Attending Provider [phone] Justo Nash DO Attending Provider [phone] Care Teams Patient Care Team Team Status: Active Member Role/Relationship Status Dates Justo Nash DO Primary Care Provider Active Visit Care Team Team Status: Active Member Role/Relationship Status Dates Justo Nash DO Primary Care Provider Active S tart: August 09, 2025 Timothy Weaver MDAttvasquez ProviderActiveStart: August 09, 2025 Visit Care Team Team Status: Active Member Role/Relationship Status Dates Justo aNsh DO Primary Care Provider Active S tart: October 23, 2025 Edith Parry ProviderActiveStart: October 23, 2025 Visit Care Team Team Status: Inactive Member Role/Relationship Status Tawanda Nash DO Attending Provider Active Star t: October 23, 2025 End: October 23, 2025 Patient Care Team Team Status: Inactive Member Role/Relationship Status Tawanda Nash DO Primary Care Provider Active S tart: October 24, 2025 End: October 24, 2025Edith Parry ProviderActiveStart: October 24, 2025 End: October 24, 2025 Chief Complaint and Reason for Visit Chief Complaint Admit Date review labs October 24, 2025 12:32pm Reason for Visit Admit Date Epilepsy October 24, 2025 12:32pm Hemochromatosis October 24, 2025 12:32pm Hyperglycemia October 24, 2025 12:32pm Hyperlipidemia October 24, 2025 12:32pm Hypothyroidism October 24, 2025 12:32pm Intentional weight loss October 24 025 12:32pm Vitamin D deficiency October 24, 2025 12:32pm Social History Smoking Status Unknown if ever smoked Observation Status Observation Response Date of Response Legal Sex [facility] (finding) [facility] Family History Relationship Condition Age at Onset Recorded Date/T stephen grandparent Unknown Malignant neoplasmUnknowngrandparentDeceasedUnknowngrandparentDeceasedUnknown grandparentDeceasedUnknownAlzheimer's diseaseUnknownmotherHistory of stroke Unknown Problems Active Problems Problem Diagnosis/Recorded Date Onset Date Status C omments Intentional weight loss May 02, 2024 10:34am Unknown Active LORENA (obstructive sleep apnea)April 25, 2024 12:57pmUnknownActiveEpilepsyJune 2023 12:41fsZulkppxHadjuo5826; Follow's with Dr. Montaño apnea, unspecifiedJune 2023 12:57pmUnknownActiveUrinary frequencyDecember 2023 8:38amUnknownActiveHemochromatosisJune 2023 12:57pmUnknownActive HyperglycemiaJune 2023 10:26amUnknownActiveHyperlipidemiaJune 2023 12:57pmUnknownActiveHyponatremiaJune 2023 10:33amUnknownActive HypothyroidismJune 2023 12:57pmUnknownActiveRenal calculiSeptember 2023 1:21pmUnknownActiveLeukopeniaJune 2024 9:17amUnknownActiveTubular adenoma of colonDeceer 2024 12:44pmUnknownActiveVitamin D deficiencyJune 2023 12:57pmUnknownActiveCholelithiasisSeptember 2023 1:13pmUnknown ActiveBiliary colicSeptember 2023 1:13pmUnknownActiveHypocalcemiaJune 2023 10:28amUnknownActive Medications Medication Status Dose Units Route Directions Qty Days Refills S tart Date Stop Date End Date Reason(s) Instructions Adherence Ergocalciferol (Vitamin D2) 1,250 mcg (50,000 unit) ca psule Active 0 .ROUTE.LIQRKFN317Vsviw 2024 9:12amTAKE ONE CAPSULE BY MOUTH ONCE WEEKLY Complies with drug therapyLacosamide 100 mg kuqdzkRtgbqwlnnucr111BHCNIabgm daily April 30, 2024 11:00pmDecember 2024 12:40pmCarbamazepine 300 mg capsule, ER multiphase 12 ajRcoudj656YORHBziyq dailyApril 30, 2024 11:00pmComplies with drug therapyErgocalciferol (Vitamin D2) 1,250 mcg (50,000 unit) capsule Ycgjiyabbvkj3464TWRGLkmgsf weekApril 30, 2024 11:00pmJun2023 10:46am Omeprazole 20 mg capsule,delayed release(DR/EC)Kzeylsmfwsqc21JBYWYjwwaVsfs 2023 11:00pmJun2023 10:45am1 capsule 30 minutes before morning meal Orally Once a day;Ursodiol 300 mg afqmdehMroysrirqeac645DKZHSfqlv dailyApril 30, 2024 11:Jun2023 10:17amLevothyroxine 75 mcg tabletDiscontinued 75MCGPOJun2023 11:002023 10:46amTAKE 1 TABLET EVERY MORNING ON AN EMPTY STOMACHFolic Acid 400 mcg pvmwyhQmskqcetitfb562IUQAYVfgegLqyy 2023 11:00pmJun2023 10:44amCalcium Carbonate-Vitamin D3 600 mg-5 mcg (200 unit) wwxkmcAzxoix4UGTOYEpqptOifu 2023 11:00pm1 tablet with food Orally Once a dayComplies with drug therapyValacyclovir (Valtrex) 1 gram tablet Fkhjaj3258APIIPgbbfRjtb 2023 11:00pm1 tablet Orally once a dayComplies with drug therapyLevetiracetam (Keppra) 1,000 mg aqrmkqKhhhrpnqaeoo6300COXITsnhd dailyJune 2023 11:00pmDecember 2024 12:41pmErgocalciferol (Vitamin D2) 1,250 mcg (50,000 unit) wxtjwyoOlywhzrjnmtm2155BQKDG.COMPLEXJune 2023 10:45amSeptember 2023 1:11pm1,250 mcg orally every other week; Levothyroxine 25 mcg yqgpooAqrtgclzslbi30GCTXMPkbbw372Yocw 2023 11:00pm October 26, 2024 8:44amtake first thing in the morning on an empty stomach, do not eat or drink for 30-45 min after takingLevetiracetam (Keppra) 1,000 mg fnlnxbSlcsjf3663ZFUXUfgvo dailyDecember 2024 12:38pmComplies with drug therapyLevothyroxine 25 mcg rctcpjKqmvok38MLZPVZcmyy983Naphzapd 2023 8:44amtake first thing in the morning on an empty stomach, do not eat or drink for 30-45 min after takingComplies with drug therapyErgocalciferol (Vitamin D2) 1,250 mcg (50,000 unit) pacjpmtZfdrqbruivdc8465QHWBCkxsra weekSeptember 2023 1:11pmApril 2024 9:11eyXHHTLcubob0.Route.MEDSUPPLYJune 2024 11:00pmPotassium Chloride 20 mEq tablet,ER particles/chhymltvMecsgc39QECITMkqle May 02, 2025 11:00pmComplies with drug therapyFolic Acid-Vit B6-Vit B12 (Westab One) 2.5-25-1 mg tabletActiveTABPODailyDece2024 12:00am Complies with drug therapyLacosamide 150 mg wqtaqmQhqqqa567SDUWOatfh daily October 24, 2025 12:00amComplies with drug therapy Immunizations Immunization Event Date Not Given Reason Dose Number Director Trial Lot Number Reason(s) Given Vaccine Information Statement (VIS) Detail Administration Location [facility] February 17, 2022 COVID-19 mRNA, Comirnaty (Pfizer)January 17OVID-19 mRNA, Comirnaty (Pfizer)February 07OVID mRNA, Comirnaty (Pfizer)October 11OVID- 19 (MODERNA) 12Y and olderOctober OVID-19 (MODERNA) 12Y and older July 26OVID mRNA Bivalent Booster (Pfizer)October 15, 2022 Quadrivalent Influenza (mdv)October 17, 2019Influenza vaccine, quadrivalent, adjuvantedOctober 2022Influenza, seasonal, injectable, pfSeptember , [id number] Quadrivalent PF MDCKOctober 2022Influenza, Recombinant, Injectable, PfSeptember , [id number] Conjugate Vaccine, 20 valentSeptember [id number] InfluenzaSeptember , 2017Quadrivalent InfluenzaSeptember , 2019Quadrivalent Influenza August 05, 2021Quadrivalent InfluenzaDecember 2021Zoster Vaccine Recombinant, AdjuvantedSeptember , 2019Zoster Vaccine Recombinant, AdjuvantedNovember , 2019Trivalent Influenza VaccineSeptember , 2017 Trivalent Influenza VaccineDecember 2018Trivalent Influenza Vaccine August 05, 2020Trivalent Influenza VaccineSeptember 2020Trivalent Influenza VaccineDecember 2021 Procedures Procedure Date Performed Status Urine Culture October 23, 2025 active Relevant Diagnostic Tests and/or Laboratory Data Laboratory Results Test Collection Date/Time Result Date/Time Result Interpretation Reference Range Result Comment Performing Site Levetiracetam (Keppra) Level August 7:15am August 09, 2025 7:15am 34.3 ug/mL 10.0-40.0Performed at: [facility] [id number] [place], [place] [id number] Director: Chata Patel MD, Phone: [phone] 2024 7:15am34.3 ug/mL10.0-40.0Performed at: [facility] [id number] Director: Chata Patel MD, Phone: [phone] Lacosamide LevelOctober 2024 7:15amOctober 2024 7:15am9.7 ug/mL 5.0-10.0This test was developed and its performance characteristicsdetermined by [employer]. It has not been cleared orapproved by the Food and Drug Administration. Limit of Detection 0.5 Mean plasma concentrations following maintenance dose 200 mg/day 4.99 +/- 2.51 ug/mL 400 mg/day 9.35 +/- 4.22 ug/mL 600 mg/day 12.46 +/- 5.60 ug/mLPerformed at: [facility] [id number] Director: Chata Patel MD, Phone: [phone] Bilirubin October 23, 2025 10:03amDecember 2024 10:03amNEGATIVENEGATIVEFree Thyroxine2024 10:14amDeceabrazo [facility] 2024 10:14am0.88 ng/dL 0.76-1.4625-Hydroxy Vitamin D TotalDe2024 10:14amDece2024 10:08rz766.3 ng/mL<20 ng/mL Vit D -<30 ng/mL Vit D vvpwmaggachc65-303 ng/mL Vit D sufficient>100 ng/mL Potential ToxicityFerritin October 23, 2025 10:14amDecember 2024 10:65et702.0 ng/mL8.0-252.0 Thyroid Stimulating Hormone 3rd GenDece2024 10:14amDece2024 10:14am1.407 u[iU]/mL0.358-3.740Free TriiodothyronineDece2024 10:14amDeceabrazo scottsdale campus 2024 10:14am2.00 pg/mLBelow low normal2.18-3.98 Cholesterol/HDL Ratio2024 10:14amDecemb2024 10:14am1.8 3.3 - 4.4 LOW RISK4.4 - 7.1 AVERAGE RISK7.1 - 11.0 MODERATE RISK>11.0 HIGH RISK Iron Saturationmclaren [facility]2024 10:14am2024 10:14am71.7 % Estimated Average Glucoseflagstaff medical center 2024 10:14m[facility]2024 10:14am 100 mg/dLUrine Occult Bloodmclaren [facility]2024 10:03am2024 10:03amNEGATIVENEGATIVECholesterol Levelflagstaff medical center 2024 10:14ammclaren [facility] region2024 10:13xj832 mg/dLAbove high normal<=200Iron Levelflagstaff medical center 2024 10:14ammclaren lapeer region2024 10:86fm823.0 ug/dLAbove high cpeoaz39.0-170.0 Hemoglobin R7jUnygwkzd2024 10:14am2024 10:14am5.1 %4.5-6.2 ADA RECOMMENDED LIMIT 4.0 - 6.0ADA THERAPEUTIC TARGET < 7.0ACTION SUGGESTED> 7.0 Urine AppearanceOctober 23, 2025 10:03am2024 10:03amCLEARCLEAR HDL CholesterolDemclaren lapeer region2024 10:14m[facility]2024 10:85ms424 mg/dL Above high ywghti35-65> or =60 mg/dl - LOW CARDIOVASCULAR RISK<40 mg/dl - HIGH CARDIOVASCULAR RISKTotal Iron Binding Capacityflagstaff medical center 2024 10:14am October 23, 2025 10:28ai565.0 ug/dL250.0-450.0Urine ColorDemclaren la[facility] region2024 10:03amDe2024 10:03amLT. GREENYELLOWLDL Cholesterol, Calculated October 23, 2025 10:14[facility]2024 10:28ip463.0 mg/dL<100 mg/dl WDFZOSI796-623 mg/dl NEAR OR ABOVE QFWLJPX378-792 mg/dl BORDERLINE SNHH833-563 mg/dl HIGH>190 mg/dl VERY HIGHUrine Glucose (UA)October 23, 2025 10:03am October 23, 2025 10:03amNEGATIVE mg/dLNEGATIVETriglycerides LevelDeflagstaff medical center 2024 10:14amHer[facility] 2024 10:14am55 mg/dL<=150Urine KetonesDflorence community healthcare 2024 10:03amDeceabrazo scottsdale [facility] 2024 10:03amNEGATIVE mg/dLNEGATIVEVLDL CholesterolDeflagstaff medical center 2024 10:14amHer[facility] 2024 10:14am11.0 mg/dLUrine Leukocyte EsteraseDeflagstaff medical center 2024 10:03amDeflagstaff medical center 2024 10:03amSMALL Abnormal (applies to non-numeric results)NEGATIVEUrine NitriteDeflagstaff medical center 2024 10:03amDeflagstaff medical center 2024 10:03amNEGATIVENEGATIVEUrine pHDflorence community healthcare 2024 10:03amDeflagstaff medical center 2024 10:03am7.55.0-9.0Urine ProteinHeritage Valley Health System 2024 10:03amDeflagstaff medical center 2024 10:03amNEGATIVE mg/dLNEG/TRACEUrine Specific GravityHeritage Valley Health System 2024 10:03am[facility] 2024 10:03am1.0101.005-1.025 Urine UrobilinogenDflorence community healthcare 2024 10:03amDeflagstaff medical center 2024 10:03am0.2 EU/dL0.2-1.0 Vital Signs Vital Reading Result Reference Range Collection Date/Time Height 64 [in_i] October 24, 2025 11:85unEtxhax09.26 kgDeceabrazo scottsdale campus 2024 11:25amBody Fgotaxsdobh56.7 [degF]97.6-99.0[facility] 2024 11:25amHeart Rate79 /min 60-100Deceabrazo [facility] 2024 11:25amOxygen saturation by Pulse xqxxamwm71 %95-100 October 24, 2025 11:25amBP Vxuhcmgh301 mm[Hg]100-140Demcl[facility]2024 11:25amBP Dxcyipgcs24 mm[Hg]60-100Demcl[facility]2024 11:25amBMI (Body Mass Index)34.1 kg/s1Jyzmcmec2024 11:25am Advance Directives Advance Directive Response Recorded Date/ Time Advance Directives No January 26 12:08pm Insurance Providers Guarantor Denisse Newton Address [address] [address] Info.Home Phone: Payer Group Member ID Coverage Type Subscriber Relationship to Subscriber Effective Date Expiration Date MMO Unemployed Id: [id number] A Newton Id: [id number] [address] [address] Home Phone: Email: [email or web address] Encounters Encounter Location(s) Arrival/Admit Date Discharge/Departure Date Discharge/Departure Disposition Provider(s) Non-patient / Non-visit -[facility] 8:15am Timothy Weaver MDNon-patient / [facility] Professional CoDeceer 2024 10:03amDaMaureen Gonzalez Referred-[facility] 10:04amDeceer 2024 10:05amDischarged to home care or self care (routine discharge)Maureen Nogueira Physician/Provider Office Visit-[facility] 2024 12:32pmDeceer 2024 1:04pmDischarged to home care or self care (routine discharge)Justo Nash , DO Recent Diagnosis Onset Date Admit Date Epilepsy Unknown October 24, 12:32pm Hemochromatosis Unknown October 24 12:32pm Hyperglycemia Unknown October 24 12:32pm Hyperlipidemia Unknown Alexey 17[address], 2 025 12:32pm Hypothyroidism Unknown October 24 025 12:32pm Intentional weight loss Unknown October 24, 2025 12:32pm Vitamin D deficiency Unknown October 242024 12:32pm Assessments Diagnosis Onset Date Resolution Status Admit Date Epilepsy acuteDece2024 12:32pmHemochromatosisacuteDecemb2024 12:32pm HyperglycemiaacuteDece2024 12:32pmHyperlipidemiaacuteDece2024 12:32pmHypothyroidismacuteDece2024 12:32pmIntentional weight lossacuteDece2024 12:32pmVitamin D deficiencyacuteDe2024 12:32pm Plan of Treatment Author Jesusita Elliott [facility] HospitalAuthoredOctober 24, 2025 1:02pmShe follows with Dr. Weaver for evaluation. Her iron is 238. Ferritin is 129.0. % saturation is 71.7. Will continue to monitor. I did advise her that a CBC was missed and I would like her to get this drawn soon, she can call for results. Discussed blood sugar results with patient today. HgA1C is down from 5.4 to 5.1 which is normal. Discussed cholesterol results with patient today. Total is 253. HDL is 137. LDL is 105.0. Triglycerides are 55. VLDL is 11. She is encouraged to continue to monitor her intake of carbs and sugars. Stay active as tolerated. Discussed her thyroid results with her today. TSH is 1.407. Free T3 is 2.00. Free T4 is 0.88. She is to continue with the same dose of thyroid medication. She gets a Vitamin D injection every six months at the hospital, she thinks this is ordered by Dr. Wheeler. Her Vitamin D level is 100.3. We discussed that her bariatric surgery has helped to improve her blood work results. She has lost 86 pounds total since surgery but continues to try and lose more weight. She saw Dr. Jones for an appointment to discuss a repeat colonoscopy, but she voices that no one understood why she was at the appointment. She was scheduled for a colonoscopy but because no one understood why she was there she ended up cancelling it. I did advise her that her colonoscopy from 2021 did show she had a pedunculated polyp and when this was sent for pathology it was the kind that could turn into cancer. I recommend she have a repeat colonoscopy in three years (09/2025). I do recommend she have a repeat colonoscopy done. I recommend she have one done every three years.??She voices that she will probably wait and not have a repeat done. Future Tests Future scheduled test information is unavailable Pending Tests Test Name Ordered Date Scheduled Date Comprehensive Metabolic Panel October 24 12:43pm 6 Months Comprehensive Metabolic Panel October 24 1:02pm MM screening mammo BI w/CADDecember 2024 12:55pm Future Visits Future appointment information is unavailable Future Procedures Procedure Name Ordered Date Scheduled Date Urine Culture October 23, 2025 1:03pm Decem amna 2024 10:04am A1C with Estimated Average Glu October 24, 2025 12:43pm 6 Months Complete Blood Count Auto Diff October 24, 2025 1:01pm Complete Blood Count Auto DiffDecember 2024 12:43pm6 MonthsIron and TIBC ProfileDece2024 12:43pm6 MonthsFerritinDeceer 2024 12:43pm6 MonthsLipid PanelDece2024 12:43pm6 MonthsTriiodothyronine (T3) Free October 24, 2025 12:43pm6 MonthsFree T4 (Free Thyroxine)October 24, 2025 12:43pm6 MonthsThyroid Stimulating HormoneDeceer 2024 12:43pm6 Months Vitamin D 25 Hydroxy TotalDece2024 12:43pm6 Months Future Medications Future medication information is unavailable Patient Instructions Patient instructions are unavailable
--- OUTSIDE RECORDS SUMMARY | 2025-10-24 13:20 | XMS_ITS | Clinical Summary ---
Author Organization [facility] Address [address] [place] [address] Care Team Providers Care Audit Clerk Name Role Phone Scotty Ruiz MD Primary Care Provider [phone] Allergies Active AllergyReactionsCriticalityNoted DateCommentsPenicillinsRash,UnknownLow 03/13/2008 rash PhenobarbitalOther,LnopYcu3703/13/2008 Mood swings Mental changes Nuwbdgygs14/01/1980Valproic Acid11/08/1979 Depakote Other Reaction(s): Mood Medications MedicationSigDispense QuantityRefillsLast FilledStart DateEnd DateStatus ergocalciferol (Vitamin D2) 1.25 MG (00365 UT) capsule 3Active folic acid (Folvite) 1 [...] 05/10/2025Screening for malignant neoplasm of colon05/10/2025Osteoporosis 12/06/2024Postmenopausal state12/06/20240224Xlqbdei78/13/2024OSA (obstructive sleep apnea)04/20/20247455Cwewqjoz14/13/2024Migraine without aura and without status migrainosus, not qnbikhvpxqo28/13/2024artial symptomatic epilepsy with complex partial seizures, intractable, without status ecpdcplbymn65/13/2024isorder of iron dvozywygxr78/05/2022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 gene 08/12/2022neurysm of left internal carotid artery (HHS-HCC)01/02/2020Family history of pnevetkbhqezyyy24/13/0262Tkbjhwamzjzwskf69/15/2012Hypothyroidism 02/03/2011Other jgapbdhhrzkgynabce53/29/2011Vitamin D gkomgvniqj87/13/2010 Postartificial menopausal uyisjizj51/18/7636Qnqzmvqy97/02/2008Herpes zoster 05/09/20084249Goflmoci42/02/2008 Encounters DateTypeDepartmentCare IxqgNgmyabsjrcg72/21/2025Refill [facility] [address] [facility] [address] [place] [phone] Ya Benitez MA Partial symptomatic epilepsy with complex partial seizures, intractable, 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) (Primary Dx); Seizure (HCC)09/27/2025Refill [facility] [address] [place] [address] [place] [address] Lakshmi Mosley MA Hx of cold sores09/17/2025 1:00 PM ESTProcedure Visit [facility] [address] [place] [address] Partial symptomatic epilepsy with complex partial seizures, intractable, 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); Radiculopathy of sacral hmgllk1309/17/20252682Ynwccc74/06/2025 10:40 AM EDTOffice Visit [facility] [address] [place] [address] Timothy Weaver MD Idiopathic progressive neuropathy (Primary Dx); Partial symptomatic epilepsy with complex partial seizures, intractable, 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); Seizure (HCC)08/13/2025amboo flowsheet [facility] [address] [place] [phone] Timothy Weaver MD 08/13/20254548Akvitb46/02/2025linisync Result Encounter [facility] Unsolicited Ezequiel Wheeler DO from Last 3 Months Immunizations ImmunizationAdministration DatesNext QnyVZDF-WXB-9 (COVID-19) vaccine, mRNA, spike protein, LNP, PF, [...] sodaCommentsUnknownSex and Gender InformationValueDate RecordedSex Assigned at QrexvBxsekf27/09/2024 8:52 AM ESTLegal HhqQfsytr02/15/2023 6:36 PM EDTGender PglcmpkoJxmcwg25/09/2024 8:52 AM ESTSexual HvppxblgfhaQmfykjbj42/09/2024 8:52 AM EST Last Filed Vital Signs Vital SignReadingTime TakenCommentsBlood Xdnvjtfi185/8208/13/2025 10:45 AM EDT Pxhej4293 12:58 PM ESTTemperature--Respiratory Rate--Oxygen Saturation 98%12/18/2024 12:58 PM ESTInhaled Oxygen Concentration--Qmqfpy80.8 kg (198 lb) 08/13/2025 10:45 AM JCZJlohxb556.6 cm (5' 4 )08/13/2025 10:45 AM EDTBody Mass Index33.9908/13/2025 10:45 AM EDT Plan of Treatment DateTypeDepartmentCare Team (Latest Contact Info)Vdkylcpavuj26/08/2026 9:00 AM ESTOffice Visit [facility] [address] [place] [address] Timothy Weaver MD [address] [facility] [address] [place] [address] [place] [phone] 12/03/2025 1:00 PM ESTOffice Visit [facility] [address] [facility] [place] [address] Ezequiel Wheeler, [address] [facility] [place] [address] Health MaintenanceDue DateLast DoneCommentsCT Rmecdhpbxlro1966FIT-DNA 1966FIT1966FOBT1966 8365Byckczyimhiaj1966Pap Smear1987 Cervical Cancer Oqsgsbfhk00/31/1996HPV/Rssayz7409/07/1996COVID-19 Vaccine ( season)509/, 08/18/2023, 10/15/2022, Additional history tvhflsPhatccynu985Colonoscopy2Colorectal Cancer Usvcfqkol74/02/2032Influenza PlvxelpCohoxrohy76/22/2025, 07/19/2024, 08/18/2023, Additional history existsPneumococcal Vaccine: Pediatrics (0 to 5 Years) and At-Risk Patients (6 to 64 Years)Aged OutNo longer eligible based on patient's age to complete this topic Procedures Procedure NamePriorityDate/TimeAssociated DiagnosisCommentsMM TOMOSYNTHESIS SCREENING BI08/09/2025 5:11 PM EDT [facility] FLRAUVNKTQWSFYjgrddy78/02/2025 8:15 AM EDT [facility] UNNYJFKZJQCbtnqdw02/02/2025 8:15 AM EDT from Last 3 Months Results * MM TOMOSYNTHESIS SCREENING BI (08/09/2025 5:11 PM EDT)Anatomical Region LateralityModalityOtherSpecimen (Source)Anatomical Location / Laterality Collection Method / VolumeCollection TimeReceived Time08/09/2025 5:11 PM EDT Narrative 08/09/2025 5:12 PM EDT [facility] ?[address] ? [place] [address] ? Mammography Report ? Signed ? Patient: NEWTON,DENISSE A ?MR#: [id number] ?? : 1965 ?Acct:[id number] ?? Age/Sex: 59 / F ?ADM Date: 08/09/25 ?? Loc: MAMMO ? Attending Dr: Ezequiel Wheeler D.O. ? Ordering Physician: Ezequiel Wheeler D.O. ?Results: ? Date of Service: 08/09/25 ?Follow Up: ? Procedure(s): MM tomosynthesis screening BI ?? Accession Number(s): [id number] ? cc: Ezequiel Wheeler D.O.; SCOTTY RUIZ ? Patient Name: ? DENISSE NEWTON ? MR#: [id number] ? : 1965 ? Exam Date: 08/09/2025 [...] at age 36. ? LOCATION: ? [facility] ? BREAST COMPOSITION: ? The breasts [...] ?08/09/251711 ? DD/ 1711 ? TD/TT: ? Director Inbound Sales: Procedure Note Radiology, Radiologist, MD - 08/09/2025 [place] [address] Mammography Report Signed Patient: DENISSE NEWTON AMR#: [id number] : 1965Acct:[id number] Age/Sex: 59 / FADM Date: 08/09/25 Loc: MAMMO Attending Dr: Ezequiel Wheeler D.O. Ordering Physician: Ezequiel Wheeler D.O.Results: Date of Service: 08/09/25Follow Up: Procedure(s): MM tomosynthesis screening BI Accession Number(s): [id number] cc: Ezequiel Wheeler D.O.; SCOTTY RUIZ Patient Name: DENISSE NEWTON MR#: [id number] : 1965 Exam Date: 08/09/2025 Ordering Doctor: [...] lung cancer at age 36. LOCATION: [facility] BREAST COMPOSITION: The breasts are almost [...] Mendez M.D. Signed By:08/09/251711 DD/ 10 TD/TT: Director Inbound Sales: Authorizing ProviderResult TypeResult StatusCorey Liam DOCLINISYNC IMAGINGFinal Result * [facility] LEVETIRACETAM (08/09/2025 8:15 AM EDT)ComponentValueRef RangeTest Method Analysis TimePerformed AtPathologist SignatureLEVETIRACETAM (KEPPRA), S34.3 10.0 - 40.0 ug/mLTBHComment: Performed at: ??BN - [facility] [address] ??[id number] Cone Operator: Chata Patel MD, Phone: ??[phone] Specimen (Source)Anatomical Location / LateralityCollection Method / [...] 5.60 ug/mL Performed at: ??BN - [facility] [address] ??[id number] Cone Operator: Chata Patel MD, Phone: ??[phone] Specimen (Source)Anatomical Location / LateralityCollection Method / Volume Collection TimeReceived Time08/09/2025 8:15 AM EDT1 9:03 AM EDT Narrative [facility] - 08/14/2025 10:08 AM EDT Authorizing ProviderResult TypeResult StatusBrejovanni Weaver MDCLINISYNCFinal ResultPerforming OrganizationAddressCity/State/ZIP CodePhone Number [facility] from Last 3 Months Insurance Care Teams Team MemberRelationshipSpecialtyStart DateEnd Date Scotty Ruiz MD [address] [place] [address] PCP - [facility]11/23/23
--- OUTSIDE RECORDS SUMMARY | 2025-10-24 13:20 | XMS_ITS | Clinical Summary ---
Author Organization [employer] Address [id number] [place] [address] Care Team Providers Care Board Filler Name Role Phone BrendanmakenzieJusto DO Primary Care Provider [phone] Allergies Active AllergyReactionsCriticalityNoted ObddHovwiscdNymgjeajefmNxobRjh21/10/2017 PhenobarbitalOther (See Comments)05/17/2017 Mood swings Medications MedicationSigDispense [...] by mouth once a week. Takes each Xqqpndboe70/30/2016Active valACYclovir (VALTREX) 1000 mg tablet Take 1,000 mg by mouth daily. 11/22/2019Active Active Problems ProblemNoted DateDiagnosed DateAneurysm of left internal carotid artery 01/02/2020 Family History Medical HistoryRelationNameCommentsAsthmaMotherDiabetesSisterHypertensionSister Anesthesia problemsNeg HxRelationNameStatusCommentsFatherAliveMotherAliveSister Social History Tobacco UseTypesPacks/DayYears UsedDateSmoking Tobacco: NeverSmokeless Tobacco: NeverAlcohol UseStandard Drinks/WeekCommentsNo0 (1 standard drink = 0.6 oz pure alcohol)PHQ-2AnswerDate RecordedTotal Zmvpn208ChildcareAnswerDate IramnapzIoyazdnkbIhbyemz56/12/2019EmploymentAnswerDate RecordedEmploymentUnknown 04/19/2019Purpose - LifeAnswerDate RecordedPurpose and direction in lifeUnknown 1CommentsNoSex and Gender InformationValueDate RecordedSex Assigned at BirthNot on fileLegal WigRholhf21/06/2015 12:04 PM EDTGender IdentityNot on fileSexual OrientationNot on file Last Filed Vital Signs Vital SignReadingTime TakenCommentsBlood Ttzfqsfq290/8101/05/2020 12:55 PM EST Zwyvg247901/05/2020 12:55 PM XRTIsmclrujxnb16.5 ??C (97.7 ??F)01/05/2020 8:35 AM ESTRespiratory Giba136701/05/2020 12:55 PM ESTOxygen Lwzdfrtcyu20%01/05/2020 12:55 PM ESTInhaled Oxygen Concentration--Rudqdd875.3 kg (274 lb)01/05/2020 8:35 AM DWKSngvor605.1 cm (5' 5 )01/05/2020 8:35 AM ESTBody Mass Index45.6001/05/2020 8:35 AM EST Plan of Treatment Health MaintenanceDue DateLast DoneCommentsDepression Xtifqgryi38/31/1978Tobacco Wchbbvdws50/31/1978Adult BMI Udjaaoins36/31/1984DTaP,Tdap and Td Vaccines (1 - Tdap)1985Zoster (Shingles) Vaccine (1 of 2)2016Influenza Vaccine 5112/18/2018, 07/23/2018 Medical Devices ImplantedTypeAreaManufacturerDevice IdentifierShelf Expiration DateModel / Serial / LotScr Bn 40mm 18mm 6.7mm Slf Drl - [id number] Implanted:Qty: 1 on 05/18/2017 by [facility]aines [facility]: AnkleArthrex [id number] / / Scr Bn 45mm 18mm 6.7mm Slf Drl - [id number] Implanted:Qty: 2 on 05/18/2017 [facility] [employer] [id number] / / Wshr 13mm Orth Ti - [id number] Implanted:Qty: 1 on 05/18/2017 by [facility]: AnkleArthrexAR- [id number] / / Insurance Care Teams Team MemberRelationshipSpecialtyStart DateEnd Date Justo Nash DO [address] [place] [address] [facility]05/18/17
--- OUTSIDE RECORDS SUMMARY | 2025-10-24 13:20 | XMS_ITS | Clinical Summary ---
Author Organization [facility] Address [address] [place], [place] [address] Care Team Providers Care Six Horse Hitch Driver Name Role Phone Lashaun Harris Primary Care Provider [phone] Allergies Active AllergyReactionsCriticalityNoted ZwbyVxwdevzkYkjwmytdpxk38/06/2008 rash Cagcgmvfifjhu15/06/2008 Mental changes Medications MedicationSigDispense QuantityRefillsLast FilledStart DateEnd [...] Active Problems ProblemNoted DateDiagnosed DateDisorder of iron madmkcmfvq72/05/2022 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 gene08/12/2022Family history of odkbdipzwxypojr82/13/3492Xduveldcefjosjk25/15/2012 Immunizations ImmunizationAdministration DatesNext Dueinfluenza (IIV4) vaccine, age [...] drink = 0.6 oz pure alcohol)PHQ-2AnswerDate RecordedPHQ-2 alfxa754/04/2022Area Deprivation Index AnswerDate RecordedNational Score (1-100), lower number is lower risk86 12/01/2022State Score (1-10), lower number is lower riskNot on file12/01/2022 Data from: https://www.neighborhoodatlas.[facility].edu/. Last address used for tx[address] [place], [place] [address]CommentsNoSex and Gender InformationValueDate RecordedSex Assigned at BirthNot on fileLegal SexFemale 10/09/2012 8:13 AM ESTGender IdentityNot on fileSexual OrientationNot on file Last Filed Vital Signs Vital SignReadingTime TakenCommentsBlood Inwqmuin738/8909 11:12 AM EDT Jvwzj3854 11:12 AM TWVRdgjamqdicp97.2 ??C (97.1 ??F)07/29/2022 11:12 AM EDTRespiratory Hjyc1254 11:12 AM EDTOxygen Bhwtkpmxul86%07/29/2022 11:12 AM EDTInhaled Oxygen Concentration--Zuzxhg598 kg (271 lb 1.6 oz)07/29/2022 11:12 AM YDQLkowdk521.1 cm (5' 5 )07/29/2022 11:12 AM EDTBody Mass Index45.11 07/29/2022 11:12 AM EDT Plan of Treatment Health MaintenanceDue DateLast DoneCommentsAnxiety Wjpjhaqvj03/31/1984Depression Vhistngrn13/31/1984HIV Ygfiecyfu79/31/1984Hepatitis C Nlvgzequa01/31/1984 DTaP,Tdap,Td Vaccine (1 - Tdap)1985Cervical Cancer Bhlkalwcw03/31/1987 Mammogram Wyfxtcdja44/31/2006CT Kclavserilcd93/31/2011Cologuard (FIT-DNA) 09/07/20118546Ppwuhbcscak20/31/2011Colorectal Cancer Blcnnvhxb37/31/2011Fecal Occult Blood2011Lipid Aoarvkmbb34/31/0625Nsqbhyggjygjq33/31/2011Pneumococcal Vaccine: 50+ (1 of 1 - PCV)2016Covid-19 Vaccine ( season) 504/10/2022, 10/11/2021, 02/07/2021, Additional history existsInfluenza Vaccine (#1)509/, 08/05/2020, 10/17/2019, Additional history existsDiabetes Nakqntdgk93/14/897769, 2RSV Vaccine (1 - 1-dose 75+ series)1Shingrix FctdbwvHygmyjfjn65/27/2020, 08/05/2020 Procedures Procedure NamePriorityDate/TimeAssociated DiagnosisCommentsCOMPREHENSIVE METABOLIC HYFTMQwrnenx36/14/2022 2:58 PM EDT 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) from Last 3 Months or Most Recently Relevant to Health Maintenance Results * (ABNORMAL) COMP METABOLIC PANEL (08/21/2022 2:58 PM EDT)ComponentValueRef RangeTest MethodAnalysis TimePerformed AtPathologist SignatureProtein, Total 7.16.3 - 8.0 g/dL08/21/2022 3:21 PM [facility]TNORTHCO[facility] Albumin4.33.9 - 4.9 g/dL08/21/2022 3:21 PM [facility] LABCalcium, Total9.58.5 - 10.2 mg/dL08/21/2022 3:21 PM [facility] LABBilirubin, Total0.30.2 - 1.3 mg/dL08/21/2022 3:21 PM [facility] LABAlkaline Algjpgtytir849(H)34 - 123 U/L 08/21/2022 3:21 PM [facility] ESJXNY7212 - 35 U/L 08/21/2022 3:21 PM [facility] PVZSFZ327 - 38 U/L 08/21/2022 3:21 PM [facility] UWMPimqefm134(H)74 - 99 mg/dL08/21/2022 3:21 PM [facility] LABComment: The [place] Diabetes Association (ADA) provides guidance for cutoff [...] Standards of Medical Care in Diabetes 2016, [place] Diabetes Association. Diabetes Care. 2016.39(Suppl 1). JCI831 - 21 mg/dL08/21/2022 3:21 PM [facility] Creatinine0.740.58 - 0.96 mg/dL08/21/2022 3:21 PM [facility] NIIKelmsu064(L)136 - 144 mmol/L1 3:21 PM [facility] LABPotassium4.63.7 - 5.1 mmol/L1 3:21 PM [facility] SUIJczcxxqr8615 - 105 mmol/L1 3:21 PM EDT [facility] IQMCC97525 - 30 mmol/L1 3:21 PM EDT [facility] LABAnion Gap99 - 18 mmol/L1 3:21 PM [facility]TNOH[facility] LABEstimated Glomerular Filtration Rate96 >=60 mL/min/1.73m 08/21/2022 3:21 PM EDTPRESTON MEMORIAL [facility] LABComment:Estimated Glomerular Filtration Rate (eGFR) is calculated [...] VolumeCollection TimeReceived TimeBloodBLOOD SPECIMEN / UnknownVenipuncture / Xoaxwvm8508/21/2022 2:58 PM EDT1 2:58 PM EDT Narrative Authorizing ProviderResult TypeResult StatusRicci Borrero MDLABORATORYFinal ResultPerforming OrganizationAddressCity/State/ZIP CodePhone Number [facility] [address] [place] [address] from Last 3 Months or Most Recently Relevant to Health Maintenance Insurance Care Teams Team MemberRelationshipSpecialtyStart DateEnd Date Lashaun Harris [address] [place] [phone] PCP - GeneralNeurology07/29/22
[2025-10-24 13:53] LABS: Hematocrit 40.4 % (36.0-48.0); Hemoglobin 14.6 g/dL (12.0-16.0); Immature Granulocytes Abs Auto 0.01 10^3/uL (0.00-0.03); Immature Granulocytes Pct Auto 0.2 % (0.0-0.5); Lymphocytes Absolute Auto 1.6 10^3/uL (1.2-3.8); Mean Corpuscular HGB Conc 36.1 g/dL (29.9-35.2); Mean Corpuscular Hemoglobin 35.5 pg (26.7-34.0); Mean Corpuscular Volume 98.3 fL (81.0-99.0); Platelet Count 312 10^3/uL (150-450); Red Blood Count 4.11 10^6/uL (4.20-5.40); White Blood Count 4.8 10^3/uL (4.0-11.0)
[2025-10-24 14:10] LABS: Alanine Aminotransferase 22 U/L (14-59); Albumin Globulin Ratio 0.9; Albumin Level 3.7 g/dL (3.4-5.0); Alkaline Phosphatase 116 U/L (46-116); Anion Gap 10.3; Aspartate Amino Transferase 22 U/L (15-37); Blood Urea Nitrogen 16.0 mg/dL (7.0-18.0); Calcium 9.0 mg/dL (8.5-10.1); Carbon Dioxide 28.9 mmol/L (21.0-32.0); Chloride 95 mmol/L (98-107); Estimated GFR (African America >60 (>=60 mL/min/1.73m^2); Estimated GFR (Non-African Ame >60 (>=60 mL/min/1.73m^2); Globulin 3.9 g/dL; Glucose 96 mg/dL (74-106); Potassium 4.2 mmol/L (3.5-5.1); Sodium 130 mmol/L (136-145); Total Protein 7.6 g/dL (6.4-8.2)
== END 2025-10-24 13:15 | disposition home or self-care (01) ==
LOC: LAB 13:16
PROVIDERS: PCP Family Medicine; Visit Provider Family Medicine
DX: Z79.899 Other long term (current) drug therapy (principal)
CPT/HCPCS: 36415; 80053; 85025